=== PATIENT | female | born 1935 | race Caucasian/White ===

== ENCOUNTER → 2018-03-03 06:57 | Outpatient (CLI) | payer MEDICARE, BC, SELFPAY ==
--- NOTE | 2018-03-03 09:44 | NEURO ---
NCS and/or EMG Patient Report Ordering Doctor: Leonila Rosa DATE OF SERVICE: 03/03/18 This is a right upper extremity EMG and nerve conduction study performed on this 82-year-old female with a history of numbness and tingling in her right hand for approximately 2 years, in July she did awaken with what she describes as her right arm was asleep and it gradually improved over that day. She does use sleep aids. She says a subsequent CAT scan was unremarkable. Right upper extremity sensory and motor nerve conduction study demonstrates moderate to severe prolongation of the median motor distal latency with mild reduction of amplitude and conduction velocity. The median sensory distal latency is prolonged. The ulnar motor and sensory and the radial sensory responses are normal. The right median F wave is mildly prolonged compared to the ulnar F wave. Right upper extremity needle electromyography is performed. Muscles evaluated included the first dorsal interosseous, abductor pollicis brevis, brachioradialis, biceps, triceps and deltoid muscles. The abductor pollicis brevis did demonstrate large motor units with early recruitment. All other muscles including other C8 muscles demonstrated normal insertional activity with absence of pathologic spontaneous activity. Motor unit potential recruitment pattern and amplitude was otherwise normal. Impression: 1. Moderate to severe carpal tunnel syndrome at the right wrist. 2. Symptoms of transient right arm weakness and numbness are consistent with transient compression neuropathy however further evaluation for vascular causes could include MRI, carotid ultrasound, echocardiogram and cardiac monitoring.
== END ==
PROVIDERS: Family Provider Internal Medicine; PCP Internal Medicine; Visit Provider Nurse Practitioner Acute Care
DX: R20.0 Anesthesia of skin (principal); R20.2 Paresthesia of skin
CPT/HCPCS: 95886; 95909

== ENCOUNTER 2018-09-27 14:56 | Inpatient (IN) | payer MEDICARE, BC, SELFPAY ==
[2018-09-27] VITALS (7 sets, daily range): BP systolic 116–136; BP diastolic 55–76; PULSE 77–102; RESP 16–18; TEMP 36.6–36.8; O2SAT 95–100; BMI 21.6
--- NOTE | 2018-09-27 15:23 | EKG12_ITS ---
Test Reason : Blood Pressure : / mmHG Vent. Rate : 089 BPM Atrial Rate : 089 BPM P-R Int : 120 ms QRS Dur : 086 ms QT Int : 362 ms P-R-T Axes : 054 -56 036 degrees QTc Int : 440 ms Normal sinus rhythm Possible Left atrial enlargement Left anterior fascicular block Cannot rule out Inferior infarct (masked by fascicular block?) , age undetermined Poor R wave progression Abnormal ECG Confirmed by WENDY SOTO, [place] ([id number]), communications editor NICOLE PARSON ([id number]) on 09/29/2018 1:40:56 PM Referred By: Melida Cassidy Confirmed By:[place] NGUYEN MD
--- NOTE | 2018-09-27 15:23 | CT_ITS ---
STUDY: CT ABDOMEN AND PELVIS WITH CONTRAST REASON FOR EXAM: Female, 82 years old. Abdominal pain RADIATION DOSAGE (If Supplied By Facility): CTDIvol = ( 10.30 ) mGy, DLP = ( 516.18 ) mGycm TECHNIQUE: Transaxial images were obtained from the dome of the diaphragm to the symphysis pubis without oral contrast. 75 ml of Isovue 300 contrast was administered. Sagittal and coronal images were reconstructed. Individualized dose optimization techniques were used for this CT. COMPARISON: None. FINDINGS: Body wall soft tissues: No acute process. Osseous structures: Multilevel lumbar spondylosis with evidence of at least mild foraminal narrowing in the low lumbar spine at multiple levels. Inferior chest: Lung bases clear. No significant cardiomegaly. Normal distal esophagus. Hepatobiliary: Cholecystectomy. Mild intrahepatic biliary ductal ectasia. Ectatic hepatic duct and common bile duct, the hepatic duct measuring up to 11 mm and the common bile duct within the head of the pancreas approximately 8.5 mm tapering toward the sphincter with no filling defect. Pancreas: No suspicious pancreatic lesion. Mild ductal ectasia. Spleen: Splenic calcifications consistent with old granulomatous disease. Adrenal glands: Normal. Urogenital: Benign bilateral renal cysts Bosniak category 1 simple cystic features. Largest on the left measuring 1.2 cm. Normal collecting systems, ureters, urinary bladder. Uterus absent. No adnexal mass or cyst. Pelvic floor and sidewalls and retroperitoneum: No mass or adenopathy. Vasculature: Mild atherosclerosis. Stomach: No acute process. Small bowel and mesentery: No acute process. Large bowel: The appendix is not clearly visible. There are no acute inflammatory features in the region of the cecum. Small stool burden of the large bowel. Diverticulosis of the proximal to distal sigmoid. Acute diverticulitis with abscess distal sigmoid in the central deep pelvis. The abscess protrudes from the margin of the bowel and measures approximately 1.4 cm in diameter. There is prominent circumferential thickening and inflammation of the adjacent bowel wall over a segment measuring approximately 6.3 cm in length. The rectum is normal. There is no evidence of free perforation. Free fluid or free air: None. CT/Abdomen/Pelvis W IV Cont ONLY IMPRESSION: Acute sigmoid diverticulitis compensated by formation of a small adjacent abscess with prominent inflammation of the bowel segment wall. 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 No apparent obstructive lesion. Electronically Signed: Charles Gordon MD at 16:46 EST Tel , Service support ,
--- NOTE | 2018-09-27 15:25 | ED.VISSUMM ---
- ER Visit Summary Date of Service: 09/27/18 Chief Complaint: abdominal pain History of Present Illness: The patient is a 82 F who presents for 1 month of abdominal pain. Patient has been having a progressively worsening soreness in her general upper abdomen with a bloated feeling. 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 She has worsening pain with walking or sitting upright. She has nausea without vomiting, decreased appetite, decreased oral intake due to nausea, decreased urine output and post void pain when urinating. She states that the urination symptoms have been ongoing. She has a history of irritable bowel syndrome with alternating diarrhea and constipation. She has not had a bowel movement for 2 days. No fever, chest pain, shortness of breath. Patient has Sjogren's syndrome and ray nods as well as multiple other medical problems. She is on Percocet for chronic back pain. She states the Percocet has helped somewhat with the abdominal pain. Physical Examination: Vital signs: afebrile, hemodynamically stable, no hypoxia on room air General: well nourished, well developed, in no distress Skin: warm, dry, no rash, no pallor HEENT: normocephalic and atraumatic; PERRL, EOMI, dry mucous membranes Cardiovascular: Tachycardic rate and rhythm without murmurs, no peripheral edema, 2+ pulses all distal extremities Respiratory: No increased work of breathing, lungs are clear to auscultation bilaterally, no rales, rhonchi or wheezing Abdominal: Abdomen is soft, tender to light palpation in the epigastrium and periumbilical region, bilateral upper quadrants, withhyperactive bowel sounds, no guarding or rebound, no masses MSK: Moves all extremities, no deformities, normal strength Neuro: Awake and alert, oriented ?4. No facial droop, sensation and motor function intact and symmetric Test Results: Abnormal Lab Results 09/27/18 09/27/18 09/27/18 13:30 13:30 13:30 WBC 13.3 H RBC 4.67 Hgb 13.1 Hct 41.2 MCV 88.2 MCH 28.1 MCHC 31.8 L RDW 13.7 RDW Differential 44.0 H Plt Count 269 MPV 9.8 Immature Gran % (Auto) 0.200 Neut % (Auto) 80.0 H Lymph % (Auto) 10.4 L [place] % (Auto) 9.1 Eos % (Auto) 0.2 Baso % (Auto) 0.1 Absolute Neuts (auto) 10.7 H Absolute Lymphs (auto) 1.38 Total Counted Not Reportable Sodium 138 Potassium 3.2 L Chloride 100 Carbon Dioxide 29.0 Anion Gap 9 BUN 6 L Creatinine 0.72 Estim Creat Clear Calc 33.21 Est GFR (MDRD) Af Amer 100 Est GFR (MDRD) Non-Af 83 BUN/Creatinine Ratio 8.4 L Glucose 95 Lactic Acid 1.2 Calcium 8.9 Magnesium Total Bilirubin 0.60 AST 26 ALT 22 Alkaline Phosphatase 98 Troponin I < 0.015 Total Protein 7.5 Albumin 3.8 Globulin 3.7 Albumin/Globulin Ratio 1.0 Lipase 75 Urine Color Urine Clarity Urine pH Ur Specific [place] Urine Protein Urine Glucose (UA) Urine Ketones Urine Occult Blood Urine Nitrite Urine Bilirubin Urine Urobilinogen Ur Leukocyte Esterase Urine RBC Urine WBC Ur Squamous Epith Cells Urine Bacteria Urine Mucus 09/27/18 09/27/18 13:30 16:15 WBC RBC Hgb Hct MCV MCH MCHC RDW RDW Differential Plt Count MPV Immature Gran % (Auto) Neut % (Auto) Lymph % (Auto) [place] % (Auto) Eos % (Auto) Baso % (Auto) Absolute Neuts (auto) Absolute Lymphs (auto) Total Counted Sodium Potassium Chloride Carbon Dioxide Anion Gap BUN Creatinine Estim Creat Clear Calc Est GFR (MDRD) Af Amer Est GFR (MDRD) Non-Af BUN/Creatinine Ratio Glucose Lactic Acid Calcium Magnesium 2.0 Total Bilirubin AST ALT Alkaline Phosphatase Troponin I Total Protein Albumin Globulin Albumin/Globulin Ratio Lipase Urine Color Straw Urine Clarity Clear Urine pH 7.0 Ur Specific [place] 1.010 Urine Protein Negative Urine Glucose (UA) Normal Urine Ketones Negative Urine Occult Blood 25 H Urine Nitrite Negative Urine Bilirubin Negative Urine Urobilinogen Normal Ur Leukocyte Esterase 25 H Urine RBC 0 SEEN Urine WBC 0-5 SEEN Ur Squamous Epith Cells 0 SEEN Urine Bacteria 0 SEEN Urine Mucus 0 SEEN Clinical Impression(s) from Imaging Studies Abdomen/Pelvis CT 09/27/18 15:23 IMPRESSION: Acute sigmoid diverticulitis compensated by formation of a small adjacent abscess with prominent inflammation of the bowel segment wall. 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 No apparent obstructive lesion. Electronically Signed: Charles Gordon MD at 16:46 EST Tel , Service support , Chest X-Ray 09/27/18 16:28 IMPRESSION: There are findings consistent with COPD. There is no evidence of acute chest disease. Electronically Signed: Zhao Lantigua MD at 16:46 EST , Service support , Medications Given Sodium Chloride () 1,000 mls @ 1,000 mls/hr IV .Q1H ONE Stop: 09/27/18 16:21 Last Admin: 09/27/18 15:50 Dose: 1,000 mls/hr Ciprofloxacin (Cipro) 400 mg in 200 mls @ 200 mls/hr IV X1 ONE Stop: 09/27/18 17:56 Last Admin: 09/27/18 17:50 Dose: 200 mls/hr Metronidazole (Flagyl) 500 mg in 100 mls @ 100 mls/hr IV X1 ONE Stop: 09/27/18 17:56 Last Admin: 09/27/18 19:14 Dose: Not Given Morphine Sulfate () 4 mg IV X1 ONE Stop: 09/27/18 15:23 Last Admin: 09/27/18 15:48 Dose: 4 mg Ondansetron HCl (Zofran) 4 mg IV X1 ONE Stop: 09/27/18 15:23 Last Admin: 09/27/18 15:48 Dose: 4 mg Emergency Department Course and Treatment: Examination of patient's notes from her doctor from 1 week ago shows that patient was advised dietary modifications and if those did not work that she would require workup for possible small bowel obstruction. Patient was seen by her primary care doctor today who sent patient in for further examination due to her symptoms. Given IV fluids for hydration. She was given morphine and Zofran for symptomatic relief. Labs performed, and EKG and troponin included given the patient is having epigastric complaints. CT abdomen and pelvis performed. Patient had a leukocytosis of 13.3. Hepatic function and electrolytes were remarkable only for potassium of 3.2. Lactate within normal limits at 1.2. Troponin negative. EKG showed sinus rhythm with no ischemia or ectopy. Chest x-ray was consistent with COPD but had no active acute processes. CT of the abdomen and pelvis showed sigmoid diverticulitis with an abscess and bowel wall inflammation. Patient was started on Cipro and metronidazole. Patient was discussed with Dr. Souza, who will provide surgical consult on the patient. She was admitted to the hospitalist for further management of sigmoid diverticulitis with abscess. Treatment Plan: [] Disposition: [] Impression: Acute sigmoid diverticulitis with abscess This note was generated with [employer] dictation software. It may contain incorrect words, spelling, and punctuation that were not noted in review of the chart prior to signing ED Disposition - Plan for ED Patient: Disposition: Acute Care Hospital [facility] Chief Complaint: Abd Pain
--- NOTE | 2018-09-27 15:29 | ED.DCSUM_ITS ---
- ER Visit Summary Date of Service: 09/27/18 Chief Complaint: abdominal pain History of Present Illness: The patient is a 82 F who presents for 1 month of abdominal pain. Patient has been having a progressively worsening soreness in her general upper abdomen with a bloated feeling. 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 She has worsening pain with walking or sitting upright. She has nausea without vomiting, decreased appetite, decreased oral intake due to nausea, decreased urine output and post void pain when urinating. She states that the urination symptoms have been ongoing. She has a history of irritable bowel syndrome with alternating diarrhea and constipation. She has not had a bowel movement for 2 days. No fever, chest pain, shortness of breath. Patient has Sjogren's syndrome and ray nods as well as multiple other medical problems. She is on Percocet for chronic back pain. She states the Percocet has helped somewhat with the abdominal pain. Physical Examination: Vital signs: afebrile, hemodynamically stable, no hypoxia on room air General: well nourished, well developed, in no distress Skin: warm, dry, no rash, no pallor HEENT: normocephalic and atraumatic; PERRL, EOMI, dry mucous membranes Cardiovascular: Tachycardic rate and rhythm without murmurs, no peripheral edema, 2+ pulses all distal extremities Respiratory: No increased work of breathing, lungs are clear to auscultation bilaterally, no rales, rhonchi or wheezing Abdominal: Abdomen is soft, tender to light palpation in the epigastrium and periumbilical region, bilateral upper quadrants, withhyperactive bowel sounds, no guarding or rebound, no masses MSK: Moves all extremities, no deformities, normal strength Neuro: Awake and alert, oriented ?4. No facial droop, sensation and motor function intact and symmetric Test Results: Abnormal Lab Results 09/27/18 09/27/18 09/27/18 13:30 13:30 13:30 WBC 13.3 H RBC 4.67 Hgb 13.1 Hct 41.2 MCV 88.2 MCH 28.1 MCHC 31.8 L RDW 13.7 RDW Differential 44.0 H Plt Count 269 MPV 9.8 Immature Gran % (Auto) 0.200 Neut % (Auto) 80.0 H Lymph % (Auto) 10.4 L [place] % (Auto) 9.1 Eos % (Auto) 0.2 Baso % (Auto) 0.1 Absolute Neuts (auto) 10.7 H Absolute Lymphs (auto) 1.38 Total Counted Not Reportable Sodium 138 Potassium 3.2 L Chloride 100 Carbon Dioxide 29.0 Anion Gap 9 BUN 6 L Creatinine 0.72 Estim Creat Clear Calc 33.21 Est GFR (MDRD) Af Amer 100 Est GFR (MDRD) Non-Af 83 BUN/Creatinine Ratio 8.4 L Glucose 95 Lactic Acid 1.2 Calcium 8.9 Magnesium Total Bilirubin 0.60 AST 26 ALT 22 Alkaline Phosphatase 98 Troponin I < 0.015 Total Protein 7.5 Albumin 3.8 Globulin 3.7 Albumin/Globulin Ratio 1.0 Lipase 75 Urine Color Urine Clarity Urine pH Ur Specific [place] Urine Protein Urine Glucose (UA) Urine Ketones Urine Occult Blood Urine Nitrite Urine Bilirubin Urine Urobilinogen Ur Leukocyte Esterase Urine RBC Urine WBC Ur Squamous Epith Cells Urine Bacteria Urine Mucus 09/27/18 09/27/18 13:30 16:15 WBC RBC Hgb Hct MCV MCH MCHC RDW RDW Differential Plt Count MPV Immature Gran % (Auto) Neut % (Auto) Lymph % (Auto) [place] % (Auto) Eos % (Auto) Baso % (Auto) Absolute Neuts (auto) Absolute Lymphs (auto) Total Counted Sodium Potassium Chloride Carbon Dioxide Anion Gap BUN Creatinine Estim Creat Clear Calc Est GFR (MDRD) Af Amer Est GFR (MDRD) Non-Af BUN/Creatinine Ratio Glucose Lactic Acid Calcium Magnesium 2.0 Total Bilirubin AST ALT Alkaline Phosphatase Troponin I Total Protein Albumin Globulin Albumin/Globulin Ratio Lipase Urine Color Straw Urine Clarity Clear Urine pH 7.0 Ur Specific [place] 1.010 Urine Protein Negative Urine Glucose (UA) Normal Urine Ketones Negative Urine Occult Blood 25 H Urine Nitrite Negative Urine Bilirubin Negative Urine Urobilinogen Normal Ur Leukocyte Esterase 25 H Urine RBC 0 SEEN Urine WBC 0-5 SEEN Ur Squamous Epith Cells 0 SEEN Urine Bacteria 0 SEEN Urine Mucus 0 SEEN Clinical Impression(s) from Imaging Studies Abdomen/Pelvis CT 09/27/18 15:23 IMPRESSION: Acute sigmoid diverticulitis compensated by formation of a small adjacent abscess with prominent inflammation of the bowel segment wall. 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 No apparent obstructive lesion. Electronically Signed: Charles Gordon MD at 16:46 EST Tel , Service support , Chest X-Ray 09/27/18 16:28 IMPRESSION: There are findings consistent with COPD. There is no evidence of acute chest disease. Electronically Signed: Zhao Lantigua MD at 16:46 EST , Service support , Medications Given Sodium Chloride () 1,000 mls @ 1,000 mls/hr IV .Q1H ONE Stop: 09/27/18 16:21 Last Admin: 09/27/18 15:50 Dose: 1,000 mls/hr Ciprofloxacin (Cipro) 400 mg in 200 mls @ 200 mls/hr IV X1 ONE Stop: 09/27/18 17:56 Last Admin: 09/27/18 17:50 Dose: 200 mls/hr Metronidazole (Flagyl) 500 mg in 100 mls @ 100 mls/hr IV X1 ONE Stop: 09/27/18 17:56 Last Admin: 09/27/18 19:14 Dose: Not Given Morphine Sulfate () 4 mg IV X1 ONE Stop: 09/27/18 15:23 Last Admin: 09/27/18 15:48 Dose: 4 mg Ondansetron HCl (Zofran) 4 mg IV X1 ONE Stop: 09/27/18 15:23 Last Admin: 09/27/18 15:48 Dose: 4 mg Emergency Department Course and Treatment: Examination of patient's notes from her doctor from 1 week ago shows that patient was advised dietary modifications and if those did not work that she would require workup for possible small bowel obstruction. Patient was seen by her primary care doctor today who sent patient in for further examination due to her symptoms. Given IV fluids for hydration. She was given morphine and Zofran for symptomatic relief. Labs performed, and EKG and troponin included given the patient is having epigastric complaints. CT abdomen and pelvis performed. Patient had a leukocytosis of 13.3. Hepatic function and electrolytes were remarkable only for potassium of 3.2. Lactate within normal limits at 1.2. Troponin negative. EKG showed sinus rhythm with no ischemia or ectopy. Chest x-ray was consistent with COPD but had no active acute processes. CT of the abdomen and pelvis showed sigmoid diverticulitis with an abscess and bowel wall inflammation. Patient was started on Cipro and metronidazole. Patient was discussed with Dr. Souza, who will provide surgical consult on the patient. She was admitted to the hospitalist for further management of sigmoid diverticulitis with abscess. Treatment Plan: [] Disposition: [] Impression: Acute sigmoid diverticulitis with abscess This note was generated with [employer] dictation software. It may contain incorrect words, spelling, and punctuation that were not noted in review of the chart prior to signing ED Disposition - Plan for ED Patient: Disposition: Acute Care Hospital [facility] Chief Complaint: Abd Pain
[2018-09-27] MEDS: Morphine 4 MG/ML Syringe IV (15:48)
[2018-09-27] MEDS: Ondansetron 4 MG/2 ML Vial IV (15:48)
[2018-09-27] MEDS: 0.9% Normal Saline 1,000 ML 1000 ML IV (15:50)
[2018-09-27 15:59] LABS: Absolute Lymphocyte Count 1.38 X10^3/ul (0.83-4.51); Absolute Neutrophil Count 10.7 X10^3/uL (2.0-7.7); Basophil# 0.01 X10^3/uL; Basophil% 0.1 % (0-1); Eosinophil# 0.02 X10^3/uL; Eosinophils% 0.2 % (0-5); Hematocrit 41.2 % (37-47); Hemoglobin 13.1 g/dl (12.0-15.0); Lymphocyte # 1.38 X10^3/ul (4.0); Lymphocyte % 10.4 % (19-41); Mean Corp Hgb Conc 31.8 g/gl (32-36); Mean Corpuscular Hgb 28.1 pg (27.0-32.0); Mean Corpuscular Volume 88.2 fL (81-99); Mean Platelet Vol. 9.8 fl (6.2-12.0); Monocyte# 1.21 X10^3/uL; Monocyte% 9.1 % (0-10); Neutrophil # 10.65 X10^3/uL (2.7-7.7); Platelet Count 269 K/mm3 (150-450); RBC Distribution Width CV 13.7 % (11.6-14.6); Red Blood Count 4.67 M/mm3 (4.2-5.4); White Blood Count 13.3 K/mm3 (4.4-11.0)
[2018-09-27 16:01] LABS: POSITIVE COUNT NO; POSITIVE DIFFERENTIAL NO; POSITIVE MORPHOLOGY NO
[2018-09-27 16:05] LABS: AST(SGOT) 26 U/L (15-37); Alanine Aminotransfer ALT/SGPT 22 U/L (13-56); Albumin, Serum 3.8 g/dL (3.2-5.0); Alkaline Phosphatase 98 U/L (45-117); Anion Gap 9 (5-15); BUN 6 mg/dL (7-18); BUN/Creat Ratio 8.4 RATIO (10-20); Calcium,Total 8.9 mg/dL (8.5-10.1); Chloride 100 mmol/L (98-107); Creatinine, Serum 0.72 mg/dL (0.55-1.02); EST Glomerular Filtration Rate 83 mL/min (>60); Est Glom Filt Rate - Afr Amer 100 mL/min (>60); Estimated Creatinine Clearance 33.21 ml/min; Globulin 3.7 g/dL (2.2-4.2); Glucose 95 mg/dL (74-106); Lactic Acid 1.2 mmol/L (0.4-2.0); Lipase 75 U/L (73-393); Potassium 3.2 mmol/L (3.5-5.1); Protein, Total 7.5 g/dL (6.4-8.2); Sodium Level 138 mmol/L (136-145)
--- NOTE | 2018-09-27 16:28 | RAD_ITS ---
STUDY: X-RAY CHEST REASON FOR EXAM: Female, 82 years old. Chest pain TECHNIQUE: Frontal and lateral views of the chest. COMPARISON: 04/05/2017. FINDINGS: There is hyperinflation of the lungs consistent with chronic obstructive lung disease (COPD). No infiltrates or effusions. There is no demonstrated pleural abnormality. Normal size heart. Normal mediastinum and anna. Normal visualized pulmonary arteries. Normal visualized aortic arch and descending thoracic aorta. There are diffuse degenerative changes of the visualized thoracic spine. Stable compression fracture of the mid thoracic spine. Normal visualized ribs, clavicles, and shoulders. There is no demonstrated abnormality of the visualized soft tissue structures of the upper abdomen. RAD/Chest PA and Lateral IMPRESSION: There are findings consistent with COPD. There is no evidence of acute chest disease. Electronically Signed: Zhao Lantigua MD at 16:46 EST , Service support ,
[2018-09-27 16:44] LABS: Bacteria 0 SEEN /hpf (None Seen); Mucous, Urine 0 SEEN /hpf (<or=2+); Red Blood Cells-Urine 0 SEEN /hpf (0-5); Squamous Epithelial Cells - UA 0 SEEN /hpf (5-10)
--- NOTE | 2018-09-27 17:10 | NURSING ---
DR CORRINE CHAN
[2018-09-27 17:27] LABS: Color, Urine Straw (Yellow); Glucose, Dipstick Normal (Normal); Ketone-Dipstick Negative (Negative); Leukocyte Esterase-Dipstick 25 /ul (Negative); Nitrite-Dipstick Negative (Negative); Occult Blood-Urine 25 /ul (Negative); Protein-Dipstick Negative (Negative); Urine Bilirubin Dipstick Negative (Negative); Urine Clarity Clear (Clear); Urine Urobilinogen Normal (Normal)
[2018-09-27 17:31] LABS: White Blood Cells 0-5 SEEN /hpf (0-5)
[2018-09-27] MEDS: Ciprofloxacin 400 MG/200 ML BAG 200 MG IV (17:50)
--- NOTE | 2018-09-27 17:55 | NURSING ---
DR RADHA SPEARS
--- NOTE | 2018-09-27 18:03 | NURSING ---
MED SURG SIGMOID DIVERTICULITIS WITH ABSCESS ASHELFAH
--- NOTE | 2018-09-27 18:48 | PCM.HP.STD ---
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 The patient is a 82 year old F with past medical history as mentioned above presented to the emergency room because of abdominal pain. Her symptoms started around 1 week ago with abdominal pain, in the lower part of the abdomen, dull aching pain, intermittent, 8 out of 10 in severity, sometimes tends to be more severe on the left lower quadrant, associated with nausea without vomiting, radiates to the epigastric region aggravated by standing and walking and without relieving factors. She mentioned that she has been having this abdominal pain for almost a month but started to get worse over the last 5-6 days. Around 1 month ago, she saw her tying machine operator who performed colonoscopy on her in the last several months and she was found to have extensive diverticulosis according to the patient, no documents available. Today, she went to her PCPs office who transferred her to ED for evaluation. She denied fever or chills but she was told that she has low-grade fever at her PCPs office. She has been having constipation and diarrhea alternating because of history of IBS but nothing unusual. In the emergency department, she was afebrile, slightly tachycardic, blood pressure was stable and pulse ox was maintained on room air. Her routine blood work was remarkable for leukocytosis and potassium of 3.2, otherwise normal. Her LFT and lipase were normal. Lactic acid was normal. Troponin was negative. Urine analysis revealed no evidence of infection. EKG revealed normal sinus rhythm without evidence of acute ischemic changes or cardiac arrhythmias. CT scan abdomen and pelvis with contrast revealed acute sigmoid diverticulitis with small adjacent abscess. Chest x-ray showed no acute findings. She is being admitted for acute sigmoid diverticulitis with small abscess complicated by sepsis. 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 History of compression fracture of spine (Chronic) L1, january 29 Premature atrial contractions (Chronic) Mixed anxiety and depressive disorder (Chronic) Allergies difluprednate [From Durezol] Allergy (Verified 09/27/18 14:58) Other methylprednisolone Allergy (Verified 09/27/18 14:58) Rash Penicillins Allergy (Verified 09/27/18 14:58) Unknown prednisolone Allergy (Verified 09/27/18 14:58) Swelling citalopram Adverse Reaction (Verified 09/27/18 14:58) Diarrhea codeine Adverse Reaction (Verified 09/27/18 14:58) Nausea duloxetine HCl [From Cymbalta] Adverse Reaction (Verified 09/27/18 14:58) Diarrhea lamotrigine [From Lamictal] Adverse Reaction (Verified 09/27/18 14:58) Other DRUGGED FEELING metoclopramide HCl [From Reglan] Adverse Reaction (Verified 09/27/18 14:58) Other INVOLUNTARY BODY MOVEMENTS promethazine HCl [From Phenergan] Adverse Reaction (Verified 09/27/18 14:58) Other INVOLUNTARY BODY MOVEMENTS sertraline HCl [From Zoloft] Adverse Reaction (Verified 09/27/18 14:58) Diarrhea sulfamethoxazole [From Bactrim] Adverse Reaction (Verified 09/27/18 14:58) Other FELT WEIRD, HEAD NUMB, FELT DRUGGED, SHAKEY, NAUSEATED trimethoprim [From Bactrim] Adverse Reaction (Verified 09/27/18 14:58) Other FELT WEIRD, HEAD NUMB, FELT DRUGGED, SHAKEY, NAUSEATED Home Medications: Ambulatory Orders Medication Instructions Recorded Acetaminophen [Tylenol] 500 mg PO Q6H PRN PRN 03/29/16 Aspirin [Adult Low Dose Aspirin EC] 81 mg PO DAILY 03/29/16 Atorvastatin Calcium [Lipitor] 5 mg PO QODAY 03/29/16 Calcium Citrate/Vitamin D3 2 tab PO BID 03/29/16 [Calcium Citrate - Vit D Tablet] CycloSPORINE Ophthalmic [Restasis 1 drop EACH EYE BID 03/29/16 Ophthalmic] Docusate Sodium [Colace] 100 mg PO TID PRN PRN 03/29/16 Ergocalciferol [Vitamin D] 50,000 unit PO QMONTH 03/29/16 Flaxseed Oil [[place]-3 Flaxseed Oil] 1,000 mg PO DAILY 03/29/16 Hydroxychloroquine [Plaquenil] 200 mg PO DAILYCM 03/29/16 Melatonin 3 mg PO QHS 03/29/16 Omeprazole [Prilosec] 20 mg PO BREAKFAST 03/29/16 Pilocarpine HCl [Salagen] 5 mg PO TID 03/29/16 Polyethylene Glycol 3350 [Miralax] 17 gm PO DAILY PRN PRN 03/29/16 Pramipexole Di-HCl [Mirapex] 0.125 mg PO 1530,1800,2000,2200 03/29/16 Saliva Substitute Comb No.10 1 each MM PRN PRN 03/29/16 [Neutrasal] Oxycodone HCl/Acetaminophen 0.5 tablet PO BID 09/19/16 [Percocet 5-325] Clonazepam 0.25 mg PO QHS 09/27/18 Fluticasone Propionate 2 sprays NASAL DAILY 09/27/18 Gabapentin [Neurontin] 300 mg PO BID 09/27/18 Magnesium Oxide [Magnesium] 250 mg PO QHS 09/27/18 Mineral Oil/Petrolatum,White 3.5 gm OP DAILY 09/27/18 [Systane Nighttime Eye Oint] Multivitamin [Multiple Vitamins] 1 tab PO DAILY 09/27/18 Propylene Glycol/Peg 400 [Systane 30 ml OP 4X/DAY 09/27/18 Ultra 0.4-0.3% Eye Drp] Tumeric 500 mg PO DAILY 09/27/18 Venlafaxine HCl [Venlafaxine HCl 150 mg PO DAILY 09/27/18 ER] Vitamin B Complex [B Complex] 1 tab PO DAILY 09/27/18 Wheat Dextrin [Benefiber] 5 ml PO DAILY 09/27/18 Surgical History: cholecystectomy, hysterectomy - bladder and rectal repair., - - tonsillectomy. 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 Denies: Chills, Fever Eyes: Denies: Blurred vision, Double vision, Drainage, Redness HEENT: Denies: Difficulty Hearing, Ear Pain, Eye Pain, Nasal Congestion, Sore Throat Cardiovascular: Denies: Chest Pain, Chest Pressure, Edema, Light Headedness, Palpitations, Syncope Respiratory: Denies: Cough, Pleuritic Pain, Shortness of Breath, Shortness of breath at rest, Sputum production, Wheezing Gastrointestinal: Reports: Abdominal Pain, Constipation, Diarrhea, Nausea. Denies: Melena, Vomiting Genitourinary: Denies: Dysuria, Frequency, Hematuria Musculoskeletal: Denies: Arm Pain, Back Pain, Foot Pain Skin: Denies: Dryness, Rash Neurological: Denies: Balance problems, Double vision, Change in Speech, Slurred speech, Confusion, Headaches, Incoordination Psychiatric: Reports: Anxiety, Depression Endocrine: Denies: Change in Body Habitus, Polydipsia VTE Information - Inpt Only VTE Present on Admission: No VTE Mechan Device Prophylaxis: None VTE Pharm Prophylaxis ordered?: Yes - Physical Exam General: Alert, Oriented x3, Cooperative, No apparent distress HEENT: Atraumatic, PERRLA, EOMI, Normocephalic Oral: Moist Mucosa, No Gingival or Mucosal Lesions/ Ulcerations Neck: Supple, No JVD, Negative Carotid Bruits, Trachea Midline, Thyroid Normal Size and Texture Lungs: Clear to auscultation, No rhonchi, No wheeze, No rales, Diminished Cardiovascular: Regular rate, Regular Rhythm, Normal S1, Normal S2, PMI Normal Abdomen: Bowel Sounds Present, Soft, Non-Distended, No Hepato-splenomegaly, Tender - Generalized tenderness, no guarding or rigidity. Extremities: No clubbing, No cyanosis, No edema Skin: No rashes, No breakdown Lymphatic: No Cervical, Supraclavicular, or Inguinal Adenopathy Neurological: Cranial nerves II-XII grossly intact, Motor Exam 5/5 strength throughout Psych/Mental Status: Normal Affect, Appropriate, Alert and oriented to time, place, person, mood and affect Vital Signs Temp Pulse Resp BP Pulse Ox 97.9 F 89 16 135/70 H 97 09/27/18 14:58 09/27/18 17:00 09/27/18 17:00 09/27/18 17:00 09/27/18 17:00 Oxygen Delivery Method Room Air Weight: 106 lb 14.787 oz Body Mass Index (BMI) 21.6 Finger Stick Blood Glucose 139 Laboratory Tests Past 24 Hrs 09/27/18 09/27/18 09/27/18 13:30 13:30 13:30 WBC 13.3 H RBC 4.67 Hgb 13.1 Hct 41.2 MCV 88.2 MCH 28.1 MCHC 31.8 L RDW 13.7 RDW Differential 44.0 H Plt Count 269 MPV 9.8 Immature Gran % (Auto) 0.200 Neut % (Auto) 80.0 H Lymph % (Auto) 10.4 L [place] % (Auto) 9.1 Eos % (Auto) 0.2 Baso % (Auto) 0.1 Absolute Neuts (auto) 10.7 H Absolute Lymphs (auto) 1.38 Total Counted Not Reportable Sodium 138 Potassium 3.2 L Chloride 100 Carbon Dioxide 29.0 Anion Gap 9 BUN 6 L Creatinine 0.72 Estim Creat Clear Calc 33.21 Est GFR (MDRD) Af Amer 100 Est GFR (MDRD) Non-Af 83 BUN/Creatinine Ratio 8.4 L Glucose 95 Lactic Acid 1.2 Calcium 8.9 Total Bilirubin 0.60 AST 26 ALT 22 Alkaline Phosphatase 98 Troponin I < 0.015 Total Protein 7.5 Albumin 3.8 Globulin 3.7 Albumin/Globulin Ratio 1.0 Lipase 75 Urine Color Urine Clarity Urine pH Ur Specific [place] Urine Protein Urine Glucose (UA) Urine Ketones Urine Occult Blood Urine Nitrite Urine Bilirubin Urine Urobilinogen Ur Leukocyte Esterase Urine RBC Urine WBC Ur Squamous Epith Cells Urine Bacteria Urine Mucus 09/27/18 16:15 WBC RBC Hgb Hct MCV MCH MCHC RDW RDW Differential Plt Count MPV Immature Gran % (Auto) Neut % (Auto) Lymph % (Auto) [place] % (Auto) Eos % (Auto) Baso % (Auto) Absolute Neuts (auto) Absolute Lymphs (auto) Total Counted Sodium Potassium Chloride Carbon Dioxide Anion Gap BUN Creatinine Estim Creat Clear Calc Est GFR (MDRD) Af Amer Est GFR (MDRD) Non-Af BUN/Creatinine Ratio Glucose Lactic Acid Calcium Total Bilirubin AST ALT Alkaline Phosphatase Troponin I Total Protein Albumin Globulin Albumin/Globulin Ratio Lipase Urine Color Straw Urine Clarity Clear Urine pH 7.0 Ur Specific [place] 1.010 Urine Protein Negative Urine Glucose (UA) Normal Urine Ketones Negative Urine Occult Blood 25 H Urine Nitrite Negative Urine Bilirubin Negative Urine Urobilinogen Normal Ur Leukocyte Esterase 25 H Urine RBC 0 SEEN Urine WBC 0-5 SEEN Ur Squamous Epith Cells 0 SEEN Urine Bacteria 0 SEEN Urine Mucus 0 SEEN Clinical Impression(s) from Imaging Studies Abdomen/Pelvis CT 09/27/18 15:23 IMPRESSION: Acute sigmoid diverticulitis compensated by formation of a small adjacent abscess with prominent inflammation of the bowel segment wall. 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 No apparent obstructive lesion. Electronically Signed: Charles Gordon MD at 16:46 EST Tel , Service support , Chest X-Ray 09/27/18 16:28 IMPRESSION: There are findings consistent with COPD. There is no evidence of acute chest disease. Electronically Signed: Zhao Lantigua MD at 16:46 EST , Service support , Assessment/Plan This is an 82 years old female patient presented to the emergency room because of abdominal pain, anorexia with nausea and she was found to have acute sigmoid diverticulitis with small abscess as well as sepsis and she is being admitted for treatment. #1 acute sigmoid diverticulitis/small abscess/sepsis: CT scan abdomen and pelvis reviewed as above. Patient is tachycardic, have leukocytosis which is consistent with sepsis. Lactic acid was normal. Plan: Admit to MedSurg floor, cardiac monitoring, keep on clear liquids, IV fluids with potassium replacement, start IV Flagyl and ciprofloxacin, repeat CBC and BMP tomorrow morning, general surgery consult, PT OT evaluation and treatment. #2 Sjogren's syndrome: Continue cyclosporine eyedrops, Plaquenil and pilocarpine. #3 ankylosing spondylitis: Stable, continue gabapentin, Plaquenil and start IV morphine as needed as well as Tylenol as needed. #4 restless leg syndrome: Continue Mirapex and venlafaxine. #5 anxiety/depression: Continue clonazepam, melatonin and venlafaxine. #6 DVT prophylaxis: Subcu Lovenox. Other chronic medical problems: #1 osteoarthritis. #2 osteoporosis. #3 choroid melanoma of the left eye. #4 compression fracture of the spine. This note was generated with [employer] dictation software. It may contain incorrect words, spelling, and punctuation that were not noted in checking the note before signing. Code Visit Inpatient E&M: 44066 Init Hosp L3
--- NOTE | 2018-09-27 18:53 | HP.PCM_ITS ---
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 The patient is a 82 year old F with past medical history as mentioned above presented to the emergency room because of abdominal pain. Her symptoms started around 1 week ago with abdominal pain, in the lower part of the abdomen, dull aching pain, intermittent, 8 out of 10 in severity, sometimes tends to be more severe on the left lower quadrant, associated with nausea without vomiting, radiates to the epigastric region aggravated by standing and walking and without relieving factors. She mentioned that she has been having this abdominal pain for almost a month but started to get worse over the last 5-6 days. Around 1 month ago, she saw her product info specialist who performed colonoscopy on her in the last several months and she was found to have extensive diverticulosis according to the patient, no documents available. Today, she went to her PCPs office who transferred her to ED for evaluation. She denied fever or chills but she was told that she has low-grade fever at her PCPs office. She has been having constipation and diarrhea alternating because of history of IBS but nothing unusual. In the emergency department, she was afebrile, slightly tachycardic, blood pressure was stable and pulse ox was maintained on room air. Her routine blood work was remarkable for leukocytosis and potassium of 3.2, otherwise normal. Her LFT and lipase were normal. Lactic acid was normal. Troponin was negative. Urine analysis revealed no evidence of infection. EKG revealed normal sinus rhythm without evidence of acute ischemic changes or cardiac arrhythmias. CT scan abdomen and pelvis with contrast revealed acute sigmoid diverticulitis with small adjacent abscess. Chest x-ray showed no acute findings. She is being admitted for acute sigmoid diverticulitis with small abscess complicated by sepsis. 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 History of compression fracture of spine (Chronic) L1, january 29 Premature atrial contractions (Chronic) Mixed anxiety and depressive disorder (Chronic) Allergies difluprednate [From Durezol] Allergy (Verified 09/27/18 14:58) Other methylprednisolone Allergy (Verified 09/27/18 14:58) Rash Penicillins Allergy (Verified 09/27/18 14:58) Unknown prednisolone Allergy (Verified 09/27/18 14:58) Swelling citalopram Adverse Reaction (Verified 09/27/18 14:58) Diarrhea codeine Adverse Reaction (Verified 09/27/18 14:58) Nausea duloxetine HCl [From Cymbalta] Adverse Reaction (Verified 09/27/18 14:58) Diarrhea lamotrigine [From Lamictal] Adverse Reaction (Verified 09/27/18 14:58) Other DRUGGED FEELING metoclopramide HCl [From Reglan] Adverse Reaction (Verified 09/27/18 14:58) Other INVOLUNTARY BODY MOVEMENTS promethazine HCl [From Phenergan] Adverse Reaction (Verified 09/27/18 14:58) Other INVOLUNTARY BODY MOVEMENTS sertraline HCl [From Zoloft] Adverse Reaction (Verified 09/27/18 14:58) Diarrhea sulfamethoxazole [From Bactrim] Adverse Reaction (Verified 09/27/18 14:58) Other FELT WEIRD, HEAD NUMB, FELT DRUGGED, SHAKEY, NAUSEATED trimethoprim [From Bactrim] Adverse Reaction (Verified 09/27/18 14:58) Other FELT WEIRD, HEAD NUMB, FELT DRUGGED, SHAKEY, NAUSEATED Home Medications: Ambulatory Orders Medication Instructions Recorded Acetaminophen [Tylenol] 500 mg PO Q6H PRN PRN 03/29/16 Aspirin [Adult Low Dose Aspirin EC] 81 mg PO DAILY 03/29/16 Atorvastatin Calcium [Lipitor] 5 mg PO QODAY 03/29/16 Calcium Citrate/Vitamin D3 2 tab PO BID 03/29/16 [Calcium Citrate - Vit D Tablet] CycloSPORINE Ophthalmic [Restasis 1 drop EACH EYE BID 03/29/16 Ophthalmic] Docusate Sodium [Colace] 100 mg PO TID PRN PRN 03/29/16 Ergocalciferol [Vitamin D] 50,000 unit PO QMONTH 03/29/16 Flaxseed Oil [[place]-3 Flaxseed Oil] 1,000 mg PO DAILY 03/29/16 Hydroxychloroquine [Plaquenil] 200 mg PO DAILYCM 03/29/16 Melatonin 3 mg PO QHS 03/29/16 Omeprazole [Prilosec] 20 mg PO BREAKFAST 03/29/16 Pilocarpine HCl [Salagen] 5 mg PO TID 03/29/16 Polyethylene Glycol 3350 [Miralax] 17 gm PO DAILY PRN PRN 03/29/16 Pramipexole Di-HCl [Mirapex] 0.125 mg PO 1530,1800,2000,2200 03/29/16 Saliva Substitute Comb No.10 1 each MM PRN PRN 03/29/16 [Neutrasal] Oxycodone HCl/Acetaminophen 0.5 tablet PO BID 09/19/16 [Percocet 5-325] Clonazepam 0.25 mg PO QHS 09/27/18 Fluticasone Propionate 2 sprays NASAL DAILY 09/27/18 Gabapentin [Neurontin] 300 mg PO BID 09/27/18 Magnesium Oxide [Magnesium] 250 mg PO QHS 09/27/18 Mineral Oil/Petrolatum,White 3.5 gm OP DAILY 09/27/18 [Systane Nighttime Eye Oint] Multivitamin [Multiple Vitamins] 1 tab PO DAILY 09/27/18 Propylene Glycol/Peg 400 [Systane 30 ml OP 4X/DAY 09/27/18 Ultra 0.4-0.3% Eye Drp] Tumeric 500 mg PO DAILY 09/27/18 Venlafaxine HCl [Venlafaxine HCl 150 mg PO DAILY 09/27/18 ER] Vitamin B Complex [B Complex] 1 tab PO DAILY 09/27/18 Wheat Dextrin [Benefiber] 5 ml PO DAILY 09/27/18 Surgical History: cholecystectomy, hysterectomy - bladder and rectal repair., - - tonsillectomy. 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 Denies: Chills, Fever Eyes: Denies: Blurred vision, Double vision, Drainage, Redness HEENT: Denies: Difficulty Hearing, Ear Pain, Eye Pain, Nasal Congestion, Sore Throat Cardiovascular: Denies: Chest Pain, Chest Pressure, Edema, Light Headedness, Palpitations, Syncope Respiratory: Denies: Cough, Pleuritic Pain, Shortness of Breath, Shortness of breath at rest, Sputum production, Wheezing Gastrointestinal: Reports: Abdominal Pain, Constipation, Diarrhea, Nausea. Denies: Melena, Vomiting Genitourinary: Denies: Dysuria, Frequency, Hematuria Musculoskeletal: Denies: Arm Pain, Back Pain, Foot Pain Skin: Denies: Dryness, Rash Neurological: Denies: Balance problems, Double vision, Change in Speech, Slurred speech, Confusion, Headaches, Incoordination Psychiatric: Reports: Anxiety, Depression Endocrine: Denies: Change in Body Habitus, Polydipsia VTE Information - Inpt Only VTE Present on Admission: No VTE Mechan Device Prophylaxis: None VTE Pharm Prophylaxis ordered?: Yes - Physical Exam General: Alert, Oriented x3, Cooperative, No apparent distress HEENT: Atraumatic, PERRLA, EOMI, Normocephalic Oral: Moist Mucosa, No Gingival or Mucosal Lesions/ Ulcerations Neck: Supple, No JVD, Negative Carotid Bruits, Trachea Midline, Thyroid Normal Size and Texture Lungs: Clear to auscultation, No rhonchi, No wheeze, No rales, Diminished Cardiovascular: Regular rate, Regular Rhythm, Normal S1, Normal S2, PMI Normal Abdomen: Bowel Sounds Present, Soft, Non-Distended, No Hepato-splenomegaly, Tender - Generalized tenderness, no guarding or rigidity. Extremities: No clubbing, No cyanosis, No edema Skin: No rashes, No breakdown Lymphatic: No Cervical, Supraclavicular, or Inguinal Adenopathy Neurological: Cranial nerves II-XII grossly intact, Motor Exam 5/5 strength throughout Psych/Mental Status: Normal Affect, Appropriate, Alert and oriented to time, place, person, mood and affect Vital Signs Temp Pulse Resp BP Pulse Ox 97.9 F 89 16 135/70 H 97 09/27/18 14:58 09/27/18 17:00 09/27/18 17:00 09/27/18 17:00 09/27/18 17:00 Oxygen Delivery Method Room Air Weight: 106 lb 14.787 oz Body Mass Index (BMI) 21.6 Finger Stick Blood Glucose 139 Laboratory Tests Past 24 Hrs 09/27/18 09/27/18 09/27/18 13:30 13:30 13:30 WBC 13.3 H RBC 4.67 Hgb 13.1 Hct 41.2 MCV 88.2 MCH 28.1 MCHC 31.8 L RDW 13.7 RDW Differential 44.0 H Plt Count 269 MPV 9.8 Immature Gran % (Auto) 0.200 Neut % (Auto) 80.0 H Lymph % (Auto) 10.4 L [place] % (Auto) 9.1 Eos % (Auto) 0.2 Baso % (Auto) 0.1 Absolute Neuts (auto) 10.7 H Absolute Lymphs (auto) 1.38 Total Counted Not Reportable Sodium 138 Potassium 3.2 L Chloride 100 Carbon Dioxide 29.0 Anion Gap 9 BUN 6 L Creatinine 0.72 Estim Creat Clear Calc 33.21 Est GFR (MDRD) Af Amer 100 Est GFR (MDRD) Non-Af 83 BUN/Creatinine Ratio 8.4 L Glucose 95 Lactic Acid 1.2 Calcium 8.9 Total Bilirubin 0.60 AST 26 ALT 22 Alkaline Phosphatase 98 Troponin I < 0.015 Total Protein 7.5 Albumin 3.8 Globulin 3.7 Albumin/Globulin Ratio 1.0 Lipase 75 Urine Color Urine Clarity Urine pH Ur Specific [place] Urine Protein Urine Glucose (UA) Urine Ketones Urine Occult Blood Urine Nitrite Urine Bilirubin Urine Urobilinogen Ur Leukocyte Esterase Urine RBC Urine WBC Ur Squamous Epith Cells Urine Bacteria Urine Mucus 09/27/18 16:15 WBC RBC Hgb Hct MCV MCH MCHC RDW RDW Differential Plt Count MPV Immature Gran % (Auto) Neut % (Auto) Lymph % (Auto) [place] % (Auto) Eos % (Auto) Baso % (Auto) Absolute Neuts (auto) Absolute Lymphs (auto) Total Counted Sodium Potassium Chloride Carbon Dioxide Anion Gap BUN Creatinine Estim Creat Clear Calc Est GFR (MDRD) Af Amer Est GFR (MDRD) Non-Af BUN/Creatinine Ratio Glucose Lactic Acid Calcium Total Bilirubin AST ALT Alkaline Phosphatase Troponin I Total Protein Albumin Globulin Albumin/Globulin Ratio Lipase Urine Color Straw Urine Clarity Clear Urine pH 7.0 Ur Specific [place] 1.010 Urine Protein Negative Urine Glucose (UA) Normal Urine Ketones Negative Urine Occult Blood 25 H Urine Nitrite Negative Urine Bilirubin Negative Urine Urobilinogen Normal Ur Leukocyte Esterase 25 H Urine RBC 0 SEEN Urine WBC 0-5 SEEN Ur Squamous Epith Cells 0 SEEN Urine Bacteria 0 SEEN Urine Mucus 0 SEEN Clinical Impression(s) from Imaging Studies Abdomen/Pelvis CT 09/27/18 15:23 IMPRESSION: Acute sigmoid diverticulitis compensated by formation of a small adjacent abscess with prominent inflammation of the bowel segment wall. 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 No apparent obstructive lesion. Electronically Signed: Charles Gordon MD at 16:46 EST Tel , Service support , Chest X-Ray 09/27/18 16:28 IMPRESSION: There are findings consistent with COPD. There is no evidence of acute chest disease. Electronically Signed: Zhao Lantigua MD at 16:46 EST , Service support , Assessment/Plan This is an 82 years old female patient presented to the emergency room because of abdominal pain, anorexia with nausea and she was found to have acute sigmoid diverticulitis with small abscess as well as sepsis and she is being admitted for treatment. #1 acute sigmoid diverticulitis/small abscess/sepsis: CT scan abdomen and pelvis reviewed as above. Patient is tachycardic, have leukocytosis which is consi stent with sepsis. Lactic acid was normal. Plan: Admit to [facility] floor, cardiac monitoring, keep on clear liquids, IV fluids with potassium replacement, start IV Flagyl and ciprofloxacin, repeat CBC and BMP tomorrow morning, general surgery consult, PT OT evaluation and treatment. #2 Sjogren's syndrome: Continue cyclosporine eyedrops, Plaquenil and pilocarpine. #3 ankylosing spondylitis: Stable, continue gabapentin, Plaquenil and start IV morphine as needed as well as Tylenol as needed. #4 restless leg syndrome: Continue Mirapex and venlafaxine. #5 anxiety/depression: Continue clonazepam, melatonin and venlafaxine. #6 DVT prophylaxis: Subcu Lovenox. Other chronic medical problems: #1 osteoarthritis. #2 osteoporosis. #3 choroid melanoma of the left eye. #4 compression fracture of the spine. This note was generated with [employer] dictation software. It may contain incorrect words, spelling, and punctuation that were not noted in checking the note before signing. Code Visit Inpatient E&M: 27551 Init Hosp L3
[2018-09-27] MEDS: Pramipexole Di-HCl 0.125 MG Tablet PO ×2 (19:52→22:41)
[2018-09-27] MEDS: MELATONIN 3 MG TABLET PO (22:41)
[2018-09-27] MEDS: clonazePAM 0.5 MG Tablet 0.25 MG PO (22:44)
[2018-09-27] MEDS: 0.9% NaCl Peripheral Flush Adult/Peds IV ×2 (22:48→23:08)
[2018-09-27] MEDS: Piperacil/Tazobactam 3.375 GM/50 ML ML IV (22:55)
[2018-09-28] VITALS (11 sets, daily range): BP systolic 98–159; BP diastolic 44–67; PULSE 64–88; RESP 16–18; TEMP 36.6–37; O2SAT 93–95
[2018-09-28] MEDS: 0.9% NaCl Peripheral Flush Adult/Peds IV (03:25)
[2018-09-28] MEDS: Piperacil/Tazobactam 3.375 GM/50 ML ML IV ×3 (06:05→21:44)
[2018-09-28 06:22] LABS: Absolute Lymphocyte Count 1.45 X10^3/ul (0.83-4.51); Absolute Neutrophil Count 6.7 X10^3/uL (2.0-7.7); Basophil# 0.01 X10^3/uL; Basophil% 0.1 % (0-1); Eosinophil# 0.11 X10^3/uL; Eosinophils% 1.2 % (0-5); Hematocrit 34.9 % (37-47); Lymphocyte # 1.45 X10^3/ul (4.0); Lymphocyte % 15.7 % (19-41); Mean Corp Hgb Conc 31.5 g/gl (32-36); Mean Corpuscular Hgb 28.3 pg (27.0-32.0); Mean Corpuscular Volume 89.7 fL (81-99); Mean Platelet Vol. 9.7 fl (6.2-12.0); Monocyte# 0.94 X10^3/uL; Monocyte% 10.2 % (0-10); Neutrophil # 6.69 X10^3/uL (2.7-7.7); Neutrophil % 72.7 % (47-70); Platelet Count 207 K/mm3 (150-450); RBC Distribution Width CV 13.6 % (11.6-14.6); RBC Distribution Width SD 44.4 fl (35.1-43.9); Red Blood Count 3.89 M/mm3 (4.2-5.4); White Blood Count 9.2 K/mm3 (4.4-11.0)
[2018-09-28 06:23] LABS: POSITIVE COUNT NO; POSITIVE DIFFERENTIAL NO; POSITIVE MORPHOLOGY NO
[2018-09-28 06:43] LABS: Anion Gap 9 (5-15); BUN 6 mg/dL (7-18); BUN/Creat Ratio 9.4 RATIO (10-20); Chloride 112 mmol/L (98-107); Creatinine, Serum 0.64 mg/dL (0.55-1.02); EST Glomerular Filtration Rate 95 mL/min (>60); Est Glom Filt Rate - Afr Amer 115 mL/min (>60); Estimated Creatinine Clearance 33.21 ml/min; Glucose 70 mg/dL (74-106); Sodium Level 147 mmol/L (136-145)
[2018-09-28] MEDS: Venlafaxine XR 150 MG Capsule PO (08:18)
--- NOTE | 2018-09-28 08:54 | PCM.CONS.GEN ---
Problem List (1) Diverticulitis Status: Acute Reason for Consult Date of Consultation: 09/28/18 Reason for Consultation: Diverticulitis with abscess History of Present Illness: The patient is a 82 year old F who says she has been having a lot of abdominal pain. She says that she had a colonoscopy a year ago in [place] and this showed diverticulosis but no polyps. She complains of pain in her upper abdominal area as well as her lower area. She says she has been having runny stools and diarrhea. She denies any chills. She says she has never had diverticulitis in the past. 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 History of compression fracture of spine (Chronic) L1, january 29 Premature atrial contractions (Chronic) Mixed anxiety and depressive disorder (Chronic) Allergies difluprednate [From Durezol] Allergy (Verified 09/27/18 14:58) Other methylprednisolone Allergy (Verified 09/27/18 14:58) Rash Penicillins Allergy (Verified 09/27/18 14:58) Unknown prednisolone Allergy (Verified 09/27/18 14:58) Swelling citalopram Adverse Reaction (Verified 09/27/18 14:58) Diarrhea codeine Adverse Reaction (Verified 09/27/18 14:58) Nausea duloxetine HCl [From Cymbalta] Adverse Reaction (Verified 09/27/18 14:58) Diarrhea lamotrigine [From Lamictal] Adverse Reaction (Verified 09/27/18 18:56) DRUGGED FEELING metoclopramide HCl [From Reglan] Adverse Reaction (Verified 09/27/18 18:55) INVOLUNTARY BODY MOVEMENTS promethazine HCl [From Phenergan] Adverse Reaction (Verified 09/27/18 18:55) INVOLUNTARY BODY MOVEMENTS sertraline HCl [From Zoloft] Adverse Reaction (Verified 09/27/18 14:58) Diarrhea sulfamethoxazole [From Bactrim] Adverse Reaction (Verified 09/27/18 18:55) FELT WEIRD, HEAD NUMB, FELT DRUGGED, SHAKEY, NAUSEATED trimethoprim [From Bactrim] Adverse Reaction (Verified 09/27/18 18:56) FELT WEIRD, HEAD NUMB, FELT DRUGGED, SHAKEY, NAUSEATED Home Medications: Ambulatory Orders Medication Instructions Recorded Acetaminophen [Tylenol] 500 mg PO Q6H PRN PRN 03/29/16 Aspirin [Adult Low Dose Aspirin EC] 81 mg PO DINNER 03/29/16 Atorvastatin Calcium [Lipitor] 5 mg PO QODAY 03/29/16 Calcium Citrate/Vitamin D3 2 tab PO BID 03/29/16 [Calcium Citrate - Vit D Tablet] CycloSPORINE Ophthalmic [Restasis 1 drop EACH EYE BID 03/29/16 Ophthalmic] Docusate Sodium [Colace] 100 mg PO TID PRN PRN 03/29/16 Ergocalciferol [Vitamin D] 50,000 unit PO QMONTH 03/29/16 Flaxseed Oil [[place]-3 Flaxseed Oil] 1,000 mg PO DAILY 03/29/16 Hydroxychloroquine [Plaquenil] 200 mg PO DAILYCM 03/29/16 Melatonin 3 mg PO QHS 03/29/16 Omeprazole [Prilosec] 20 mg PO BREAKFAST 03/29/16 Pilocarpine HCl [Salagen] 5 mg PO TID 03/29/16 Polyethylene Glycol 3350 [Miralax] 17 gm PO DAILY PRN PRN 03/29/16 Pramipexole Di-HCl [Mirapex] 0.125 mg PO 1530,1800,2000,2200 03/29/16 Saliva Substitute Comb No.10 1 each MM PRN PRN 03/29/16 [Neutrasal] Oxycodone HCl/Acetaminophen 0.5 tablet PO BID 09/19/16 [Percocet 5-325] Clonazepam 0.25 mg PO QHS 09/27/18 Fluticasone Propionate 2 sprays NASAL DAILY 09/27/18 Gabapentin [Neurontin] 300 mg PO BID 09/27/18 Magnesium Oxide [Magnesium] 250 mg PO QHS 09/27/18 Mineral Oil/Petrolatum,White 3.5 gm OP DAILY 09/27/18 [Systane Nighttime Eye Oint] Multivitamin [Multiple Vitamins] 1 tab PO DAILY 09/27/18 Propylene Glycol/Peg 400 [Systane 30 ml OP 4X/DAY 09/27/18 Ultra 0.4-0.3% Eye Drp] Tumeric 500 mg PO DAILY 09/27/18 Venlafaxine HCl [Venlafaxine HCl 150 mg PO DAILY 09/27/18 ER] Vitamin B Complex [B Complex] 1 tab PO DAILY 09/27/18 Wheat Dextrin [Benefiber] 5 ml PO DAILY 09/27/18 Surgical History: cholecystectomy, hysterectomy - bladder and rectal repair., - - tonsillectomy. 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 Denies: Anorexia, Chills HEENT: Denies: Difficulty Swallowing Cardiovascular: Denies: Chest Pain Respiratory: Denies: Cough Gastrointestinal: Reports: Abdominal Pain, Diarrhea. Denies: Nausea Genitourinary: Denies: Incontinence Musculoskeletal: Denies: Joint Tenderness Neurological: Denies: Balance problems Psychiatric: Denies: Anxiety, Depression Hematologic/ Lymphatic: Denies: Anemia Patient Problems: Active and Suspected Problems Diverticulitis (Acute) - Physical Exam General: Alert, Oriented x3, Cooperative HEENT: Atraumatic, PERRLA Neck: No JVD Lungs: Normal air movement Cardiovascular: Regular rate, Regular Rhythm Abdomen: Soft, Tender - Patient has tenderness in the left lower quadrant as well as the left upper quadrant and epigastric region Extremities: No edema Skin: No rashes Musculoskeletal: No Muscle Wasting Neurological: Cranial nerves II-XII grossly intact Psych/Mental Status: Normal Affect Vital Signs Temp Pulse Resp BP Pulse Ox 98.6 F 82 18 98/44 L 94 09/28/18 07:52 09/28/18 07:52 09/28/18 07:52 09/28/18 07:52 09/28/18 07:52 Oxygen Delivery Method Room Air Weight: 106 lb 14.787 oz Body Mass Index (BMI) 21.6 Finger Stick Blood Glucose 139 Intake and Output for Last 24 Hours 09/26/18 09/27/18 09/28/18 23:59 23:59 23:59 Intake Total 1750 / 1750 Balance 1750 / 1750 Microbiology Past 72 Hours 09/27/18 17:00 Blood Culture - Preliminary Blood Culture (Wb) - Anticubital Left Laboratory Tests Past 24 Hrs 09/27/18 09/27/18 09/27/18 13:30 13:30 13:30 WBC 13.3 H RBC 4.67 Hgb 13.1 Hct 41.2 MCV 88.2 MCH 28.1 MCHC 31.8 L RDW 13.7 RDW Differential 44.0 H Plt Count 269 MPV 9.8 Immature Gran % (Auto) 0.200 Neut % (Auto) 80.0 H Lymph % (Auto) 10.4 L [place] % (Auto) 9.1 Eos % (Auto) 0.2 Baso % (Auto) 0.1 Absolute Neuts (auto) 10.7 H Absolute Lymphs (auto) 1.38 Total Counted Not Reportable Sodium 138 Potassium 3.2 L Chloride 100 Carbon Dioxide 29.0 Anion Gap 9 BUN 6 L Creatinine 0.72 Estim Creat Clear Calc 33.21 Est GFR (MDRD) Af Amer 100 Est GFR (MDRD) Non-Af 83 BUN/Creatinine Ratio 8.4 L Glucose 95 Lactic Acid 1.2 Calcium 8.9 Magnesium Total Bilirubin 0.60 AST 26 ALT 22 Alkaline Phosphatase 98 Troponin I < 0.015 Total Protein 7.5 Albumin 3.8 Globulin 3.7 Albumin/Globulin Ratio 1.0 Lipase 75 Urine Color Urine Clarity Urine pH Ur Specific [place] Urine Protein Urine Glucose (UA) Urine Ketones Urine Occult Blood Urine Nitrite Urine Bilirubin Urine Urobilinogen Ur Leukocyte Esterase Urine RBC Urine WBC Ur Squamous Epith Cells Urine Bacteria Urine Mucus 09/27/18 09/27/18 09/28/18 13:30 16:15 06:00 WBC 9.2 RBC 3.89 L Hgb 11.0 L Hct 34.9 L MCV 89.7 MCH 28.3 MCHC 31.5 L RDW 13.6 RDW Differential 44.4 H Plt Count 207 MPV 9.7 Immature Gran % (Auto) 0.100 Neut % (Auto) 72.7 H Lymph % (Auto) 15.7 L [place] % (Auto) 10.2 H Eos % (Auto) 1.2 Baso % (Auto) 0.1 Absolute Neuts (auto) 6.7 Absolute Lymphs (auto) 1.45 Total Counted Not Reportable Sodium Potassium Chloride Carbon Dioxide Anion Gap BUN Creatinine Estim Creat Clear Calc Est GFR (MDRD) Af Amer Est GFR (MDRD) Non-Af BUN/Creatinine Ratio Glucose Lactic Acid Calcium Magnesium 2.0 Total Bilirubin AST ALT Alkaline Phosphatase Troponin I Total Protein Albumin Globulin Albumin/Globulin Ratio Lipase Urine Color Straw Urine Clarity Clear Urine pH 7.0 Ur Specific [place] 1.010 Urine Protein Negative Urine Glucose (UA) Normal Urine Ketones Negative Urine Occult Blood 25 H Urine Nitrite Negative Urine Bilirubin Negative Urine Urobilinogen Normal Ur Leukocyte Esterase 25 H Urine RBC 0 SEEN Urine WBC 0-5 SEEN Ur Squamous Epith Cells 0 SEEN Urine Bacteria 0 SEEN Urine Mucus 0 SEEN 09/28/18 06:00 WBC RBC Hgb Hct MCV MCH MCHC RDW RDW Differential Plt Count MPV Immature Gran % (Auto) Neut % (Auto) Lymph % (Auto) [place] % (Auto) Eos % (Auto) Baso % (Auto) Absolute Neuts (auto) Absolute Lymphs (auto) Total Counted Sodium 147 H Potassium 4.0 Chloride 112 H Carbon Dioxide 26.0 Anion Gap 9 BUN 6 L Creatinine 0.64 Estim Creat Clear Calc 33.21 Est GFR (MDRD) Af Amer 115 Est GFR (MDRD) Non-Af 95 BUN/Creatinine Ratio 9.4 L Glucose 70 L Lactic Acid Calcium 8.0 L Magnesium Total Bilirubin AST ALT Alkaline Phosphatase Troponin I Total Protein Albumin Globulin Albumin/Globulin Ratio Lipase Urine Color Urine Clarity Urine pH Ur Specific [place] Urine Protein Urine Glucose (UA) Urine Ketones Urine Occult Blood Urine Nitrite Urine Bilirubin Urine Urobilinogen Ur Leukocyte Esterase Urine RBC Urine WBC Ur Squamous Epith Cells Urine Bacteria Urine Mucus Clinical Impression(s) from Imaging Studies Abdomen/Pelvis CT 09/27/18 15:23 IMPRESSION: Acute sigmoid diverticulitis compensated by formation of a small adjacent abscess with prominent inflammation of the bowel segment wall. 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 No apparent obstructive lesion. Electronically Signed: Charles Gordon MD at 16:46 EST Tel , Service support , Chest X-Ray 09/27/18 16:28 IMPRESSION: There are findings consistent with COPD. There is no evidence of acute chest disease. Electronically Signed: Zhao Lantigua MD at 16:46 EST , Service support , Assessment/Plan All Active Problems Diverticulitis (Acute) 82-year-old female with diverticulitis and small abscess 1. The patient is a small abscess. 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 For now I would recommend not advancing past clear liquids and continuing IV antibiotics. If her pain worsens I would consider surgery. Patient reports she has never had diverticulitis in the past but given her Sjogren's disease she may warrant elective sigmoid colectomy in the future. 2. The patient is also complaining of epigastric and left upper quadrant pain. She says this is much worse if she does not get the eat. This is concerning for gastritis or peptic ulcer disease. I will add Carafate to her regimen. Reinier Souza MD Pager: [facility] [address] [place] [address], [address] [place] [address] Office:
--- NOTE | 2018-09-28 08:58 | CON.PCM_ITS ---
Problem List (1) Diverticulitis Status: Acute Reason for Consult Date of Consultation: 09/28/18 Reason for Consultation: Diverticulitis with abscess History of Present Illness: The patient is a 82 year old F who says she has been having a lot of abdominal pain. She says that she had a colonoscopy a year ago in [place] and this showed diverticulosis but no polyps. She complains of pain in her upper abdominal area as well as her lower area. She says she has been having runny stools and diarrhea. She denies any chills. She says she has never had diverticulitis in the past. 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 History of compression fracture of spine (Chronic) L1, january 29 Premature atrial contractions (Chronic) Mixed anxiety and depressive disorder (Chronic) Allergies difluprednate [From Durezol] Allergy (Verified 09/27/18 14:58) Other methylprednisolone Allergy (Verified 09/27/18 14:58) Rash Penicillins Allergy (Verified 09/27/18 14:58) Unknown prednisolone Allergy (Verified 09/27/18 14:58) Swelling citalopram Adverse Reaction (Verified 09/27/18 14:58) Diarrhea codeine Adverse Reaction (Verified 09/27/18 14:58) Nausea duloxetine HCl [From Cymbalta] Adverse Reaction (Verified 09/27/18 14:58) Diarrhea lamotrigine [From Lamictal] Adverse Reaction (Verified 09/27/18 18:56) DRUGGED FEELING metoclopramide HCl [From Reglan] Adverse Reaction (Verified 09/27/18 18:55) INVOLUNTARY BODY MOVEMENTS promethazine HCl [From Phenergan] Adverse Reaction (Verified 09/27/18 18:55) INVOLUNTARY BODY MOVEMENTS sertraline HCl [From Zoloft] Adverse Reaction (Verified 09/27/18 14:58) Diarrhea sulfamethoxazole [From Bactrim] Adverse Reaction (Verified 09/27/18 18:55) FELT WEIRD, HEAD NUMB, FELT DRUGGED, SHAKEY, NAUSEATED trimethoprim [From Bactrim] Adverse Reaction (Verified 09/27/18 18:56) FELT WEIRD, HEAD NUMB, FELT DRUGGED, SHAKEY, NAUSEATED Home Medications: Ambulatory Orders Medication Instructions Recorded Acetaminophen [Tylenol] 500 mg PO Q6H PRN PRN 03/29/16 Aspirin [Adult Low Dose Aspirin EC] 81 mg PO DINNER 03/29/16 Atorvastatin Calcium [Lipitor] 5 mg PO QODAY 03/29/16 Calcium Citrate/Vitamin D3 2 tab PO BID 03/29/16 [Calcium Citrate - Vit D Tablet] CycloSPORINE Ophthalmic [Restasis 1 drop EACH EYE BID 03/29/16 Ophthalmic] Docusate Sodium [Colace] 100 mg PO TID PRN PRN 03/29/16 Ergocalciferol [Vitamin D] 50,000 unit PO QMONTH 03/29/16 Flaxseed Oil [[place]-3 Flaxseed Oil] 1,000 mg PO DAILY 03/29/16 Hydroxychloroquine [Plaquenil] 200 mg PO DAILYCM 03/29/16 Melatonin 3 mg PO QHS 03/29/16 Omeprazole [Prilosec] 20 mg PO BREAKFAST 03/29/16 Pilocarpine HCl [Salagen] 5 mg PO TID 03/29/16 Polyethylene Glycol 3350 [Miralax] 17 gm PO DAILY PRN PRN 03/29/16 Pramipexole Di-HCl [Mirapex] 0.125 mg PO 1530,1800,2000,2200 03/29/16 Saliva Substitute Comb No.10 1 each MM PRN PRN 03/29/16 [Neutrasal] Oxycodone HCl/Acetaminophen 0.5 tablet PO BID 09/19/16 [Percocet 5-325] Clonazepam 0.25 mg PO QHS 09/27/18 Fluticasone Propionate 2 sprays NASAL DAILY 09/27/18 Gabapentin [Neurontin] 300 mg PO BID 09/27/18 Magnesium Oxide [Magnesium] 250 mg PO QHS 09/27/18 Mineral Oil/Petrolatum,White 3.5 gm OP DAILY 09/27/18 [Systane Nighttime Eye Oint] Multivitamin [Multiple Vitamins] 1 tab PO DAILY 09/27/18 Propylene Glycol/Peg 400 [Systane 30 ml OP 4X/DAY 09/27/18 Ultra 0.4-0.3% Eye Drp] Tumeric 500 mg PO DAILY 09/27/18 Venlafaxine HCl [Venlafaxine HCl 150 mg PO DAILY 09/27/18 ER] Vitamin B Complex [B Complex] 1 tab PO DAILY 09/27/18 Wheat Dextrin [Benefiber] 5 ml PO DAILY 09/27/18 Surgical History: cholecystectomy, hysterectomy - bladder and rectal repair., - - tonsillectomy. 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 Denies: Anorexia, Chills HEENT: Denies: Difficulty Swallowing Cardiovascular: Denies: Chest Pain Respiratory: Denies: Cough Gastrointestinal: Reports: Abdominal Pain, Diarrhea. Denies: Nausea Genitourinary: Denies: Incontinence Musculoskeletal: Denies: Joint Tenderness Neurological: Denies: Balance problems Psychiatric: Denies: Anxiety, Depression Hematologic/ Lymphatic: Denies: Anemia Patient Problems: Active and Suspected Problems Diverticulitis (Acute) - Physical Exam General: Alert, Oriented x3, Cooperative HEENT: Atraumatic, PERRLA Neck: No JVD Lungs: Normal air movement Cardiovascular: Regular rate, Regular Rhythm Abdomen: Soft, Tender - Patient has tenderness in the left lower quadrant as well as the left upper quadrant and epigastric region Extremities: No edema Skin: No rashes Musculoskeletal: No Muscle Wasting Neurological: Cranial nerves II-XII grossly intact Psych/Mental Status: Normal Affect Vital Signs Temp Pulse Resp BP Pulse Ox 98.6 F 82 18 98/44 L 94 09/28/18 07:52 09/28/18 07:52 09/28/18 07:52 09/28/18 07:52 09/28/18 07:52 Oxygen Delivery Method Room Air Weight: 106 lb 14.787 oz Body Mass Index (BMI) 21.6 Finger Stick Blood Glucose 139 Intake and Output for Last 24 Hours 09/26/18 09/27/18 09/28/18 23:59 23:59 23:59 Intake Total 1750 / 1750 Balance 1750 / 1750 Microbiology Past 72 Hours 09/27/18 17:00 Blood Culture - Preliminary Blood Culture (Wb) - Anticubital Left Laboratory Tests Past 24 Hrs 09/27/18 09/27/18 09/27/18 13:30 13:30 13:30 WBC 13.3 H RBC 4.67 Hgb 13.1 Hct 41.2 MCV 88.2 MCH 28.1 MCHC 31.8 L RDW 13.7 RDW Differential 44.0 H Plt Count 269 MPV 9.8 Immature Gran % (Auto) 0.200 Neut % (Auto) 80.0 H Lymph % (Auto) 10.4 L [place] % (Auto) 9.1 Eos % (Auto) 0.2 Baso % (Auto) 0.1 Absolute Neuts (auto) 10.7 H Absolute Lymphs (auto) 1.38 Total Counted Not Reportable Sodium 138 Potassium 3.2 L Chloride 100 Carbon Dioxide 29.0 Anion Gap 9 BUN 6 L Creatinine 0.72 Estim Creat Clear Calc 33.21 Est GFR (MDRD) Af Amer 100 Est GFR (MDRD) Non-Af 83 BUN/Creatinine Ratio 8.4 L Glucose 95 Lactic Acid 1.2 Calcium 8.9 Magnesium Total Bilirubin 0.60 AST 26 ALT 22 Alkaline Phosphatase 98 Troponin I < 0.015 Total Protein 7.5 Albumin 3.8 Globulin 3.7 Albumin/Globulin Ratio 1.0 Lipase 75 Urine Color Urine Clarity Urine pH Ur Specific [place] Urine Protein Urine Glucose (UA) Urine Ketones Urine Occult Blood Urine Nitrite Urine Bilirubin Urine Urobilinogen Ur Leukocyte Esterase Urine RBC Urine WBC Ur Squamous Epith Cells Urine Bacteria Urine Mucus 09/27/18 09/27/18 09/28/18 13:30 16:15 06:00 WBC 9.2 RBC 3.89 L Hgb 11.0 L Hct 34.9 L MCV 89.7 MCH 28.3 MCHC 31.5 L RDW 13.6 RDW Differential 44.4 H Plt Count 207 MPV 9.7 Immature Gran % (Auto) 0.100 Neut % (Auto) 72.7 H Lymph % (Auto) 15.7 L [place] % (Auto) 10.2 H Eos % (Auto) 1.2 Baso % (Auto) 0.1 Absolute Neuts (auto) 6.7 Absolute Lymphs (auto) 1.45 Total Counted Not Reportable Sodium Potassium Chloride Carbon Dioxide Anion Gap BUN Creatinine Estim Creat Clear Calc Est GFR (MDRD) Af Amer Est GFR (MDRD) Non-Af BUN/Creatinine Ratio Glucose Lactic Acid Calcium Magnesium 2.0 Total Bilirubin AST ALT Alkaline Phosphatase Troponin I Total Protein Albumin Globulin Albumin/Globulin Ratio Lipase Urine Color Straw Urine Clarity Clear Urine pH 7.0 Ur Specific [place] 1.010 Urine Protein Negative Urine Glucose (UA) Normal Urine Ketones Negative Urine Occult Blood 25 H Urine Nitrite Negative Urine Bilirubin Negative Urine Urobilinogen Normal Ur Leukocyte Esterase 25 H Urine RBC 0 SEEN Urine WBC 0-5 SEEN Ur Squamous Epith Cells 0 SEEN Urine Bacteria 0 SEEN Urine Mucus 0 SEEN 09/28/18 06:00 WBC RBC Hgb Hct MCV MCH MCHC RDW RDW Differential Plt Count MPV Immature Gran % (Auto) Neut % (Auto) Lymph % (Auto) [place] % (Auto) Eos % (Auto) Baso % (Auto) Absolute Neuts (auto) Absolute Lymphs (auto) Total Counted Sodium 147 H Potassium 4.0 Chloride 112 H Carbon Dioxide 26.0 Anion Gap 9 BUN 6 L Creatinine 0.64 Estim Creat Clear Calc 33.21 Est GFR (MDRD) Af Amer 115 Est GFR (MDRD) Non-Af 95 BUN/Creatinine Ratio 9.4 L Glucose 70 L Lactic Acid Calcium 8.0 L Magnesium Total Bilirubin AST ALT Alkaline Phosphatase Troponin I Total Protein Albumin Globulin Albumin/Globulin Ratio Lipase Urine Color Urine Clarity Urine pH Ur Specific [place] Urine Protein Urine Glucose (UA) Urine Ketones Urine Occult Blood Urine Nitrite Urine Bilirubin Urine Urobilinogen Ur Leukocyte Esterase Urine RBC Urine WBC Ur Squamous Epith Cells Urine Bacteria Urine Mucus Clinical Impression(s) from Imaging Studies Abdomen/Pelvis CT 09/27/18 15:23 IMPRESSION: Acute sigmoid diverticulitis compensated by formation of a small adjacent abscess with prominent inflammation of the bowel segment wall. 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 No apparent obstructive lesion. Electronically Signed: Charles Gordon MD at 16:46 EST Tel , Service support , Chest X-Ray 09/27/18 16:28 IMPRESSION: There are findings consistent with COPD. There is no evidence of acute chest disease. Electronically Signed: Zhao Lantigua MD at 16:46 EST , Service support , Assessment/Plan All Active Problems Diverticulitis (Acute) 82-year-old female with diverticulitis and small abscess 1. The patient is a small abscess. 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 For now I would recommend not advancing past clear liquids and continuing IV antibiotics. If her pain worsens I would consider surgery. Patient reports she has never had diverticulitis in the past but given her Sjogren's disease she may warrant elective sigmoid colectomy in the future. 2. The patient is also complaining of epigastric and left upper quadrant pain. She says this is much worse if she does not get the eat. This is concerning for gastritis or peptic ulcer disease. I will add Carafate to her regimen. Reinier Souza MD Pager: [facility] [address] [place] [address], [address] [place] [address] Office:
--- NOTE | 2018-09-28 09:29 | PCM.PN.HOSP ---
Patient Problems: Active and Suspected Problems Diverticulitis (Acute) Subjective: Patient seen and examined. She was admitted with a complaint of left lower quadrant pain and is been managed for acute diverticulitis with diverticular abscess. Patient still complains of abdominal pain this morning. She denies any fever or chills, any cough or chest pain, any shortness of breath, any diarrhea vomiting. General surgery is on board. Labs and vitals reviewed. Vitals/I&O's: Vital Signs Temp Pulse Resp BP Pulse Ox 98.6 F 82 18 98/44 L 94 09/28/18 07:52 09/28/18 07:52 09/28/18 07:52 09/28/18 07:52 09/28/18 07:52 Oxygen Delivery Method Room Air Weight: 106 lb 14.787 oz Body Mass Index (BMI) 21.6 Finger Stick Blood Glucose 139 Intake and Output for Last 24 Hours 09/26/18 09/27/18 09/28/18 23:59 23:59 23:59 Intake Total 1750 / 1750 Balance 1750 / 1750 General: Alert, Oriented x3, Cooperative, No apparent distress HEENT: Atraumatic, PERRLA, EOMI, Normocephalic Oral: Moist Mucosa Neck: Supple, No JVD, Negative Carotid Bruits Lungs: Clear to auscultation, Normal air movement, No rhonchi, No wheeze, No rales Cardiovascular: Regular rate, Regular Rhythm, Normal S1, Normal S2, No murmurs Abdomen: Bowel Sounds Present, Soft, Non-Distended, - - Moderate tenderness in the epigastric region and mild tenderness in the left lower quadrant region. She had no guarding or rebound tenderness. Extremities: No clubbing, No cyanosis, No edema, Capillary Refill Less than 3 Seconds Skin: No rashes, No breakdown Musculoskeletal: No Tenderness to Palpation of Joints or Extremities Lymphatic: No Cervical, Supraclavicular, or Inguinal Adenopathy Neurological: Cranial nerves II-XII grossly intact Psych/Mental Status: Normal Affect, Appropriate, Alert and oriented to time, place, person, mood and affect Microbiology Past 72 Hours 09/27/18 17:00 Blood Culture (Wb) - Anticubital Left Blood Culture - Preliminary Laboratory Results 09/27/18 13:30: WBC 13.3 H, RBC 4.67, Hgb 13.1, Hct 41.2, MCV 88.2, MCH 28.1, MCHC 31.8 L, RDW 13.7, RDW Differential 44.0 H, Plt Count 269, MPV 9.8, Immature Gran % (Auto) 0.200, Neut % (Auto) 80.0 H, Lymph % (Auto) 10.4 L, [place] % (Auto) 9.1, Eos % (Auto) 0.2, Baso % (Auto) 0.1, Absolute Neuts (auto) 10.7 H, Absolute Lymphs (auto) 1.38, Total Counted Not Reportable 09/27/18 13:30: Sodium 138, Potassium 3.2 L, Chloride 100, Carbon Dioxide 29.0, Anion Gap 9, BUN 6 L, Creatinine 0.72, Estim Creat Clear Calc 33.21, Est GFR (MDRD) Af Amer 100, Est GFR (MDRD) Non-Af 83, BUN/Creatinine Ratio 8.4 L, Glucose 95, Calcium 8.9, Total Bilirubin 0.60, AST 26, ALT 22, Alkaline Phosphatase 98, Troponin I < 0.015, Total Protein 7.5, Albumin 3.8, Globulin 3.7, Albumin/Globulin Ratio 1.0, Lipase 75 09/27/18 13:30: Lactic Acid 1.2 09/27/18 13:30: Magnesium 2.0 09/27/18 16:15: Urine Color Straw, Urine Clarity Clear, Urine pH 7.0, Ur Specific [place] 1.010, Urine Protein Negative, Urine Glucose (UA) Normal, Urine Ketones Negative, Urine Occult Blood 25 H, Urine Nitrite Negative, Urine Bilirubin Negative, Urine Urobilinogen Normal, Ur Leukocyte Esterase 25 H, Urine RBC 0 SEEN, Urine WBC 0-5 SEEN, Ur Squamous Epith Cells 0 SEEN, Urine Bacteria 0 SEEN, Urine Mucus 0 SEEN 09/28/18 06:00: WBC 9.2, RBC 3.89 L, Hgb 11.0 L, Hct 34.9 L, MCV 89.7, MCH 28.3, MCHC 31.5 L, RDW 13.6, RDW Differential 44.4 H, Plt Count 207, MPV 9.7, Immature Gran % (Auto) 0.100, Neut % (Auto) 72.7 H, Lymph % (Auto) 15.7 L, [place] % (Auto) 10.2 H, Eos % (Auto) 1.2, Baso % (Auto) 0.1, Absolute Neuts (auto) 6.7, Absolute Lymphs (auto) 1.45, Total Counted Not Reportable 09/28/18 06:00: Sodium 147 H, Potassium 4.0, Chloride 112 H, Carbon Dioxide 26.0, Anion Gap 9, BUN 6 L, Creatinine 0.64, Estim Creat Clear Calc 33.21, Est GFR (MDRD) Af Amer 115, Est GFR (MDRD) Non-Af 95, BUN/Creatinine Ratio 9.4 L, Glucose 70 L, Calcium 8.0 L Current Medications Artificial Tears (Tears Naturale, Artificial Tears) 1 - 2 drop EACH EYE Q2H PRN PRN PRN Reason: DRY EYES Last Admin: 09/28/18 06:13 Dose: 1 drop Aspirin (Ecotrin) 81 mg PO 1700 [facility] Atorvastatin Calcium (Lipitor) 5 mg PO QODAY@2200 [facility] Clonazepam (Klonopin) 0.25 mg PO QHS [facility] Last Admin: 09/27/18 22:44 Dose: 0.25 mg Enoxaparin Sodium (Lovenox) 30 mg SC DAILY@1000 [facility] Gabapentin (Neurontin) 300 mg PO BID@1600,1900 [facility] Last Admin: 09/27/18 19:54 Dose: Not Given Hydroxychloroquine Sulfate (Plaquenil) 200 mg PO 1700 [facility] Ciprofloxacin (Cipro) 400 mg in 200 mls @ 200 mls/hr IV Q12 [facility] Pantoprazole Sodium 40 mg/ (Sodium Chloride) 110 mls @ 330 mls/hr IV Q24 [facility] Piperacillin Sod/Tazobactam Sod (Zosyn) 3.375 gm in 50 mls @ 12.5 mls/hr IV Q8 [facility] Last Admin: 09/28/18 06:05 Dose: 12.5 mls/hr Potassium Chloride/Sodium Chloride (Kcl 20meq In 0.45% Ns 1000ml) 1,000 mls @ 100 mls/hr IV .Q10H [facility] Melatonin (Melatonin) 3 mg PO QHS [facility] Last Admin: 09/27/18 22:41 Dose: 3 mg Morphine Sulfate () 1 - 2 mg IV Q4H PRN PRN PRN Reason: SEVERE PAIN (6-10/10) Ondansetron HCl (Zofran) 4 mg IV Q6H PRN PRN PRN Reason: NAUSEA/VOMITING Pramipexole Dihydrochloride (Mirapex) 0.125 mg PO 1530,1800,2000,2200 [facility] Last Admin: 09/27/18 22:41 Dose: 0.125 mg Sodium Chloride () 5 - 15 ml IV UD PRN PRN Reason: SALINE FLUSH Last Admin: 09/28/18 03:25 Dose: 10 ml Sucralfate (Carafate) 1 gm PO 1HR_ACHS [facility] Venlafaxine HCl (Effexor Xr) 150 mg PO DAILY [facility] Last Admin: 09/28/18 08:18 Dose: 150 mg Medical Necessity - Tobacco Use Smoking Status: Never smoker Tobacco Use: Cigarettes Assessment/Plan All Active Problems Diverticulitis (Acute) 1. Acute sigmoid diverticulitis with diverticular abscess. Still complains of abdominal pain. She denies any nausea or vomiting. Has no fever or chills. Currently on IV Zosyn and ciprofloxacin. On clear liquid diet. Leukocytosis has resolved and white cell count is down to 9.2 from 13.3 on admission. General surgery on board. Recommends not advancing past clear liquids. continue IV antibiotics Sulcrate added on due to epigastric tenderness which may be indicated of gastritis or peptic ulcer disease the patient doesnt have a history of both. 2. Hyponatremia: Sodium is 147. Likely due to IV fluid administration. Will switch IV fluids to half-normal saline. 3. Hypokalemia: Potassium was 3.2 on admission. Resolved. Potassium is now 4. 4. Sjogren's syndrome: On cyclosporine eyedrops, Plaquenil and pilocarpine 5. Ankylosing spondylitis: On gabapentin and Plaquenil. On Tylenol as needed IV morphine as needed. 6. Restless leg syndrome: On Mirapex and venlafaxine. 7. Anxiety and depression: On clonazepam, melatonin and venlafaxine. 8. 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 DVT prophylaxis: Lovenox Code Visit Inpatient E&M: [id number] [facility] L3
--- NOTE | 2018-09-28 09:34 | PN_ITS ---
Patient Problems: Active and Suspected Problems Diverticulitis (Acute) Subjective: Patient seen and examined. She was admitted with a complaint of left lower quadrant pain and is been managed for acute diverticulitis with diverticular abscess. Patient still complains of abdominal pain this morning. She denies any fever or chills, any cough or chest pain, any shortness of breath, any diarrhea vomiting. General surgery is on board. Labs and vitals reviewed. Vitals/I&O's: Vital Signs Temp Pulse Resp BP Pulse Ox 98.6 F 82 18 98/44 L 94 09/28/18 07:52 09/28/18 07:52 09/28/18 07:52 09/28/18 07:52 09/28/18 07:52 Oxygen Delivery Method Room Air Weight: 106 lb 14.787 oz Body Mass Index (BMI) 21.6 Finger Stick Blood Glucose 139 Intake and Output for Last 24 Hours 09/26/18 09/27/18 09/28/18 23:59 23:59 23:59 Intake Total 1750 / 1750 Balance 1750 / 1750 General: Alert, Oriented x3, Cooperative, No apparent distress HEENT: Atraumatic, PERRLA, EOMI, Normocephalic Oral: Moist Mucosa Neck: Supple, No JVD, Negative Carotid Bruits Lungs: Clear to auscultation, Normal air movement, No rhonchi, No wheeze, No rales Cardiovascular: Regular rate, Regular Rhythm, Normal S1, Normal S2, No murmurs Abdomen: Bowel Sounds Present, Soft, Non-Distended, - - Moderate tenderness in the epigastric region and mild tenderness in the left lower quadrant region. She had no guarding or rebound tenderness. Extremities: No clubbing, No cyanosis, No edema, Capillary Refill Less than 3 Seconds Skin: No rashes, No breakdown Musculoskeletal: No Tenderness to Palpation of Joints or Extremities Lymphatic: No Cervical, Supraclavicular, or Inguinal Adenopathy Neurological: Cranial nerves II-XII grossly intact Psych/Mental Status: Normal Affect, Appropriate, Alert and oriented to time, place, person, mood and affect Microbiology Past 72 Hours 09/27/18 17:00 Blood Culture (Wb) - Anticubital Left Blood Culture - Preliminary Laboratory Results 09/27/18 13:30: WBC 13.3 H, RBC 4.67, Hgb 13.1, Hct 41.2, MCV 88.2, MCH 28.1, MCHC 31.8 L, RDW 13.7, RDW Differential 44.0 H, Plt Count 269, MPV 9.8, Immature Gran % (Auto) 0.200, Neut % (Auto) 80.0 H, Lymph % (Auto) 10.4 L, [place] % (Auto) 9.1, Eos % (Auto) 0.2, Baso % (Auto) 0.1, Absolute Neuts (auto) 10.7 H, Absolute Lymphs (auto) 1.38, Total Counted Not Reportable 09/27/18 13:30: Sodium 138, Potassium 3.2 L, Chloride 100, Carbon Dioxide 29.0, Anion Gap 9, BUN 6 L, Creatinine 0.72, Estim Creat Clear Calc 33.21, Est GFR (MDRD) Af Amer 100, Est GFR (MDRD) Non-Af 83, BUN/Creatinine Ratio 8.4 L, Glucose 95, Calcium 8.9, Total Bilirubin 0.60, AST 26, ALT 22, Alkaline Phosphatase 98, Troponin I < 0.015, Total Protein 7.5, Albumin 3.8, Globulin 3.7, Albumin/Globulin Ratio 1.0, Lipase 75 09/27/18 13:30: Lactic Acid 1.2 09/27/18 13:30: Magnesium 2.0 09/27/18 16:15: Urine Color Straw, Urine Clarity Clear, Urine pH 7.0, Ur Specific Colp 1.010, Urine Protein Negative, Urine Glucose (UA) Normal, Urine Ketones Negative, Urine Occult Blood 25 H, Urine Nitrite Negative, Urine Bilirubin Negative, Urine Urobilinogen Normal, Ur Leukocyte Esterase 25 H, Urine RBC 0 SEEN, Urine WBC 0-5 SEEN, Ur Squamous Epith Cells 0 SEEN, Urine Bacteria 0 SEEN, Urine Mucus 0 SEEN 09/28/18 06:00: WBC 9.2, RBC 3.89 L, Hgb 11.0 L, Hct 34.9 L, MCV 89.7, MCH 28.3, MCHC 31.5 L, RDW 13.6, RDW Differential 44.4 H, Plt Count 207, MPV 9.7, Immature Gran % (Auto) 0.100, Neut % (Auto) 72.7 H, Lymph % (Auto) 15.7 L, [place] % (Auto) 10.2 H, Eos % (Auto) 1.2, Baso % (Auto) 0.1, Absolute Neuts (auto) 6.7, Absolute Lymphs (auto) 1.45, Total Counted Not Reportable 09/28/18 06:00: Sodium 147 H, Potassium 4.0, Chloride 112 H, Carbon Dioxide 26.0, Anion Gap 9, BUN 6 L, Creatinine 0.64, Estim Creat Clear Calc 33.21, Est GFR (MDRD) Af Amer 115, Est GFR (MDRD) Non-Af 95, BUN/Creatinine Ratio 9.4 L, Glucose 70 L, Calcium 8.0 L Current Medications Artificial Tears (Tears Naturale, Artificial Tears) 1 - 2 drop EACH EYE Q2H PRN PRN PRN Reason: DRY EYES Last Admin: 09/28/18 06:13 Dose: 1 drop Aspirin (Ecotrin) 81 mg PO 1700 [facility] Atorvastatin Calcium (Lipitor) 5 mg PO QODAY@2200 [facility] Clonazepam (Klonopin) 0.25 mg PO QHS [facility] Last Admin: 09/27/18 22:44 Dose: 0.25 mg Enoxaparin Sodium (Lovenox) 30 mg SC DAILY@1000 [facility] Gabapentin (Neurontin) 300 mg PO BID@1600,1900 [facility] Last Admin: 09/27/18 19:54 Dose: Not Given Hydroxychloroquine Sulfate (Plaquenil) 200 mg PO 1700 [facility] Ciprofloxacin (Cipro) 400 mg in 200 mls @ 200 mls/hr IV Q12 [facility] Pantoprazole Sodium 40 mg/ (Sodium Chloride) 110 mls @ 330 mls/hr IV Q24 [facility] Piperacillin Sod/Tazobactam Sod (Zosyn) 3.375 gm in 50 mls @ 12.5 mls/hr IV Q8 [facility] Last Admin: 09/28/18 06:05 Dose: 12.5 mls/hr Potassium Chloride/Sodium Chloride (Kcl 20meq In 0.45% Ns 1000ml) 1,000 mls @ 100 mls/hr IV .Q10H [facility] Melatonin (Melatonin) 3 mg PO QHS [facility] Last Admin: 09/27/18 22:41 Dose: 3 mg Morphine Sulfate () 1 - 2 mg IV Q4H PRN PRN PRN Reason: SEVERE PAIN (6-10/10) Ondansetron HCl (Zofran) 4 mg IV Q6H PRN PRN PRN Reason: NAUSEA/VOMITING Pramipexole Dihydrochloride (Mirapex) 0.125 mg PO 1530,1800,2000,2200 [facility] Last Admin: 09/27/18 22:41 Dose: 0.125 mg Sodium Chloride () 5 - 15 ml IV UD PRN PRN Reason: SALINE FLUSH Last Admin: 09/28/18 03:25 Dose: 10 ml Sucralfate (Carafate) 1 gm PO 1HR_ACHS [facility] Venlafaxine HCl (Effexor Xr) 150 mg PO DAILY [facility] Last Admin: 09/28/18 08:18 Dose: 150 mg Medical Necessity - Tobacco Use Smoking Status: Never smoker Tobacco Use: Cigarettes Assessment/Plan All Active Problems Diverticulitis (Acute) 1. Acute sigmoid diverticulitis with diverticular abscess. * Still complains of abdominal pain. She denies any nausea or vomiting. * Has no fever or chills. * Currently on IV Zosyn and ciprofloxacin. On clear liquid diet. * Leukocytosis has resolved and white cell count is down to 9.2 from 13.3 on admission. * General surgery on board. Recommends not advancing past clear liquids. continue IV antibiotics * Sulcrate added on due to epigastric tenderness which may be indicated of gastritis or peptic ulcer disease the patient doesnt have a history of both. * 2. Hyponatremia: Sodium is 147. Likely due to IV fluid administration. Will switch IV fluids to half-normal saline. 3. Hypokalemia: Potassium was 3.2 on admission. Resolved. Potassium is now 4. 4. Sjogren's syndrome: On cyclosporine eyedrops, Plaquenil and pilocarpine 5. Ankylosing spondylitis: On gabapentin and Plaquenil. On Tylenol as needed IV morphine as needed. 6. Restless leg syndrome: On Mirapex and venlafaxine. 7. Anxiety and depression: On clonazepam, melatonin and venlafaxine. 8. 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 DVT prophylaxis: Lovenox Code Visit Inpatient E&M: 89832 Subs Hosp L3
[2018-09-28] MEDS: Enoxaparin 30 MG/0.3 ML Syringe SC (10:30)
[2018-09-28] MEDS: Sucralfate 1 GM Tablet PO ×3 (10:31→21:40)
[2018-09-28] MEDS: oxyCODONE 5 MG Tablet 2.5 MG PO ×2 (11:35→18:53)
[2018-09-28] MEDS: Acetaminophen 325 MG Tablet PO ×2 (11:35→18:52)
--- NOTE | 2018-09-28 11:36 | CASEMGMT ---
Social Work Note Per [employer] worker questions, pt has completed HCPOA and Living will and provided copies to [facility]. SW checked pt's chart, advanced directives are not on pt's chart or e-chart. SW in to meet with pt. SW introduced self and role at [facility]. Pt is alert and orientated. Pt confirms that she has completed advanced directives and has provided [facility] with copies. SW informed pt that this worker checked pt's chart and no copies are found. Pt states she knows where the documents are at home and is able to bring in copies to [facility]. Patsy Mason ACCOUNTING REPRESENTATIVE, FARM PRODUCT PURCHASER
--- NOTE | 2018-09-28 11:45 | CASEMGMT ---
RN CM Face to Face with patient for initial transition planning/care coordination assessment. RN CM introduced self and role at [facility]. Patient lying in bed, alert and oriented. Patient willing to participate in assessment and is able to answer all questions appropriately. Care providers, pharmacy, and demographics verified. Patient wishes to discharge home, denies need for home health at this time. Patient states she has no further needs or concerns at this time. CM to follow for discharge planning needs that may arise. PCP: [facility] Specialists: Gene neurologist; Jae trim mechanic; BATOOL Manley Preferred Pharmacy: [facility] Insurance: [employer] Prescription Benefit: Yes Living Will/HPOA: Yes, son and daughter LNOK: at [facility] for dementia, son and daughter Living Arrangements: [facility] [place] ramp to enter the home. Patient is independent at home. Transportation: Self/family/friend DME/HHC: Patient has raised toilet and grab bars. Has cleaning person 4 hours per week. Disposition Plan: Patient to discharge home with support of family and friends and follow-up plans in place. Patsy MATT, RN, CM
[2018-09-28] MEDS: Pramipexole Di-HCl 0.125 MG Tablet PO ×4 (14:13→21:40)
--- NOTE | 2018-09-28 14:15 | CHAPLAIN ---
Type of Pastoral Visit _x__ Initial Visit ___ Follow-up Visit ___ On-call Visit ___ General Patient Visit ___ Spiritual Assessment ___ Family Conference ___ Bereavement ___ Rapid Response ___ Code Blue ___ Other (describe below) Pastoral Care Referral From _x__ Patient ___ Family ___ Nurse ___ Physician ___ Car Packer ___ Intervention Teacher ___ Other (describe below) Sacrament/Intervention _x__ Active listening ___ Anointing ___ Mosque ___ Bereavement ___ Communion _x__ Amy exploration ___ _x__ Life review _x__ Prayer ___ Reconciliation ___ Sacrament of Sick _x__ Supportive presence ___ Wedding ___ Other (describe below) Pastoral Comments long conversation about may and alevism life; pt concern is for her in an ECF with dementia
[2018-09-28] MEDS: Gabapentin 300 MG Capsule PO ×2 (16:08→18:52)
[2018-09-28] MEDS: Hydroxychloroquine 200 MG Tablet PO (17:59)
[2018-09-28] MEDS: Aspirin E.C. 81 MG Tablet PO (18:00)
[2018-09-28] MEDS: Pilocarpine HCl 5 MG Tablet PO (18:00)
[2018-09-28] MEDS: CycloSPORINE Ophthalmic 1 DROP DROPERETTE 1 DRP OPHTHALMIC (20:03)
[2018-09-28] MEDS: MELATONIN 3 MG TABLET PO (21:39)
[2018-09-28] MEDS: Atorvastatin Calcium 10 MG Tablet 5 MG PO (21:39)
[2018-09-28] MEDS: clonazePAM 0.5 MG Tablet 0.25 MG PO (21:44)
[2018-09-29] VITALS (7 sets, daily range): BP systolic 95–138; BP diastolic 44–69; PULSE 65–82; RESP 16–18; TEMP 36.2–36.9; O2SAT 95–100
[2018-09-29] MEDS: Piperacil/Tazobactam 3.375 GM/50 ML ML IV ×3 (05:04→22:43)
[2018-09-29 05:36] LABS: Absolute Lymphocyte Count 1.47 X10^3/ul (0.83-4.51); Absolute Neutrophil Count 4.1 X10^3/uL (2.0-7.7); Basophil# 0.01 X10^3/uL; Basophil% 0.2 % (0-1); Eosinophil# 0.17 X10^3/uL; Eosinophils% 2.6 % (0-5); Hematocrit 36.6 % (37-47); Hemoglobin 11.4 g/dl (12.0-15.0); Lymphocyte # 1.47 X10^3/ul (4.0); Lymphocyte % 22.6 % (19-41); Mean Corp Hgb Conc 31.1 g/gl (32-36); Mean Corpuscular Hgb 27.9 pg (27.0-32.0); Mean Corpuscular Volume 89.7 fL (81-99); Mean Platelet Vol. 10.3 fl (6.2-12.0); Monocyte# 0.73 X10^3/uL; Monocyte% 11.2 % (0-10); Neutrophil % 63.1 % (47-70); Platelet Count 220 K/mm3 (150-450); RBC Distribution Width CV 13.5 % (11.6-14.6); RBC Distribution Width SD 43.8 fl (35.1-43.9); Red Blood Count 4.08 M/mm3 (4.2-5.4); White Blood Count 6.5 K/mm3 (4.4-11.0)
[2018-09-29 05:41] LABS: POSITIVE COUNT NO; POSITIVE DIFFERENTIAL NO; POSITIVE MORPHOLOGY NO
[2018-09-29 05:49] LABS: Anion Gap 8 (5-15); BUN 4 mg/dL (7-18); BUN/Creat Ratio 6.3 RATIO (10-20); Calcium,Total 8.6 mg/dL (8.5-10.1); Chloride 111 mmol/L (98-107); Creatinine, Serum 0.64 mg/dL (0.55-1.02); EST Glomerular Filtration Rate 95 mL/min (>60); Est Glom Filt Rate - Afr Amer 115 mL/min (>60); Estimated Creatinine Clearance 33.21 ml/min; Glucose 78 mg/dL (74-106); Sodium Level 144 mmol/L (136-145)
[2018-09-29] MEDS: Sucralfate 1 GM Tablet PO ×4 (06:15→22:43)
[2018-09-29] MEDS: Pilocarpine HCl 5 MG Tablet PO ×3 (06:16→17:54)
--- NOTE | 2018-09-29 08:02 | PN.SURG_ITS ---
Patient Problems: Active and Suspected Problems Diverticulitis (Acute) Subjective: Patient reports that her pain is improved. She is having diarrhea. - Physical Exam General: Alert, Oriented x3, Cooperative Lungs: Normal air movement Cardiovascular: Regular rate, Regular Rhythm Abdomen: Soft, Non-Distended, Tender Vital Signs Temp Pulse Resp BP Pulse Ox 97.8 F 82 17 95/44 L 96 09/29/18 02:22 09/29/18 07:50 09/29/18 02:22 09/29/18 02:22 09/29/18 02:22 Oxygen Delivery Method Room Air Weight: 106 lb 14.787 oz Body Mass Index (BMI) 21.6 Finger Stick Blood Glucose 139 Intake and Output for Last 24 Hours 09/27/18 09/28/18 09/29/18 23:59 23:59 23:59 Intake Total 3798 / 3798 1797 / 1797 Output Total 400 / 400 Balance 3398 / 3398 1797 / 1797 Microbiology Past 72 Hours 09/27/18 17:00 Bacteria Detection (PCR) - Final Blood Culture (Wb) - Anticubital Left Strep not Strep pneumo Blood Culture - Preliminary Laboratory Tests Past 24 Hrs 09/29/18 09/29/18 05:10 05:10 WBC 6.5 RBC 4.08 L Hgb 11.4 L Hct 36.6 L MCV 89.7 MCH 27.9 MCHC 31.1 L RDW 13.5 RDW Differential 43.8 Plt Count 220 MPV 10.3 Immature Gran % (Auto) 0.300 Neut % (Auto) 63.1 Lymph % (Auto) 22.6 [place] % (Auto) 11.2 H Eos % (Auto) 2.6 Baso % (Auto) 0.2 Absolute Neuts (auto) 4.1 Absolute Lymphs (auto) 1.47 Total Counted Not Reportable Sodium 144 Potassium 4.0 Chloride 111 H Carbon Dioxide 25.0 Anion Gap 8 BUN 4 L Creatinine 0.64 Estim Creat Clear Calc 33.21 Est GFR (MDRD) Af Amer 115 Est GFR (MDRD) Non-Af 95 BUN/Creatinine Ratio 6.3 L Glucose 78 Calcium 8.6 Medical Necessity - Tobacco Use Smoking Status: Never smoker Tobacco Use: Cigarettes Assessment/Plan All Active Problems Diverticulitis (Acute) 82-year-old female with diverticulitis 1. Patient is still having significant pain with palpation to the left lower quadrant and left upper quadrant. White count has returned to normal with no left shift. Continue clear liquids until patient's pain has resolved. I explained that it may be a few more days. Reinier Souza MD Pager: [facility] [address] [place] [address], [address] [place] [address] Office:
[2018-09-29] MEDS: CycloSPORINE Ophthalmic 1 DROP DROPERETTE 1 DRP OPHTHALMIC ×2 (08:07→20:13)
--- NOTE | 2018-09-29 10:27 | PCM.PN.HOSP ---
Patient Problems: Active and Suspected Problems Diverticulitis (Acute) Subjective: Patient seen and examined. She says abdominal pain is much better. She denies fever, chills, cough, chest pain, SOB. Diarrhea is getting better though she did have diarrhea overnight. Labs and vitals reviewed. Vitals/I&O's: Vital Signs Temp Pulse Resp BP Pulse Ox 98.4 F 82 16 124/57 H 100 09/29/18 08:35 09/29/18 08:35 09/29/18 08:35 09/29/18 08:35 09/29/18 08:35 Oxygen Delivery Method Room Air Weight: 106 lb 14.787 oz Body Mass Index (BMI) 21.6 Finger Stick Blood Glucose 139 Intake and Output for Last 24 Hours 09/27/18 09/28/18 09/29/18 23:59 23:59 23:59 Intake Total 3798 / 3798 1797 / 1797 Output Total 400 / 400 Balance 3398 / 3398 1797 / 1797 General: Alert, Oriented x3, Cooperative, No apparent distress HEENT: Atraumatic, PERRLA, EOMI, Normocephalic Oral: Moist Mucosa Neck: Supple, No JVD, Negative Carotid Bruits Lungs: Clear to auscultation, Normal air movement, No rhonchi, No wheeze, No rales Cardiovascular: Regular rate, Regular Rhythm, Normal S1, Normal S2, No murmurs Abdomen: Bowel Sounds Present, Soft, Non-Distended, - - Moderate epigastric and left lower quadrant tenderness, with no guarding or rebound tenderness. Extremities: No clubbing, No cyanosis, No edema, Capillary Refill Less than 3 Seconds Skin: No rashes, No breakdown Musculoskeletal: No Tenderness to Palpation of Joints or Extremities Lymphatic: No Cervical, Supraclavicular, or Inguinal Adenopathy Neurological: Cranial nerves II-XII grossly intact Psych/Mental Status: Normal Affect, Appropriate, Alert and oriented to time, place, person, mood and affect Microbiology Past 72 Hours 09/27/18 17:00 Blood Culture (Wb) - Anticubital Left Bacteria Detection (PCR) - Final Strep not Strep pneumo 09/27/18 17:00 Blood Culture (Wb) - Anticubital Left Blood Culture - Preliminary Laboratory Results 09/29/18 05:10: WBC 6.5, RBC 4.08 L, Hgb 11.4 L, Hct 36.6 L, MCV 89.7, MCH 27.9, MCHC 31.1 L, RDW 13.5, RDW Differential 43.8, Plt Count 220, MPV 10.3, Immature Gran % (Auto) 0.300, Neut % (Auto) 63.1, Lymph % (Auto) 22.6, [place] % (Auto) 11.2 H, Eos % (Auto) 2.6, Baso % (Auto) 0.2, Absolute Neuts (auto) 4.1, Absolute Lymphs (auto) 1.47, Total Counted Not Reportable 09/29/18 05:10: Sodium 144, Potassium 4.0, Chloride 111 H, Carbon Dioxide 25.0, Anion Gap 8, BUN 4 L, Creatinine 0.64, Estim Creat Clear Calc 33.21, Est GFR (MDRD) Af Amer 115, Est GFR (MDRD) Non-Af 95, BUN/Creatinine Ratio 6.3 L, Glucose 78, Calcium 8.6 Current Medications Acetaminophen (Tylenol) 325 - 650 mg PO Q4H PRN PRN PRN Reason: PAIN Last Admin: 09/28/18 18:52 Dose: 325 mg Artificial Tears (Tears Naturale, Artificial Tears) 1 - 2 drop EACH EYE Q2H PRN PRN PRN Reason: DRY EYES Last Admin: 09/28/18 06:13 Dose: 1 drop Aspirin (Ecotrin) 81 mg PO 1700 [facility] Last Admin: 09/28/18 18:00 Dose: 81 mg Atorvastatin Calcium (Lipitor) 5 mg PO QODAY@220 [facility] Last Admin: 09/28/18 21:39 Dose: 5 mg Clonazepam (Klonopin) 0.25 mg PO QHS [facility] Last Admin: 09/28/18 21:44 Dose: 0.25 mg Cyclosporine (Restasis Ophthalmic) 1 drop OPHTHALMIC 0800,1999 [facility] Last Admin: 09/29/18 08:07 Dose: 1 drop Enoxaparin Sodium (Lovenox) 30 mg SC DAILY@1000 [facility] Last Admin: 09/28/18 10:30 Dose: 30 mg Gabapentin (Neurontin) 300 mg PO BID@1600,1900 [facility] Last Admin: 09/28/18 18:52 Dose: 300 mg Hydroxychloroquine Sulfate (Plaquenil) 200 mg PO 1700 [facility] Last Admin: 09/28/18 17:59 Dose: 200 mg Pantoprazole Sodium 40 mg/ (Sodium Chloride) 110 mls @ 330 mls/hr IV Q24 [facility] Last Admin: 09/28/18 10:30 Dose: 330 mls/hr Piperacillin Sod/Tazobactam Sod (Zosyn) 3.375 gm in 50 mls @ 12.5 mls/hr IV Q8 [facility] Last Admin: 09/29/18 05:04 Dose: 12.5 mls/hr Potassium Chloride/Sodium Chloride (Kcl 20meq In 0.45% Ns 1000ml) 1,000 mls @ 100 mls/hr IV .Q10H [facility] Last Admin: 09/29/18 08:06 Dose: 100 mls/hr Melatonin (Melatonin) 3 mg PO QHS [facility] Last Admin: 09/28/18 21:39 Dose: 3 mg Morphine Sulfate () 1 - 2 mg IV Q4H PRN PRN PRN Reason: SEVERE PAIN (6-10/10) Non-Formulary Medication (Mineral Oil/Petrolatum,White [Systane Nighttime Eye Ointment]) 1 applicatio OPHTHALMIC QHS [facility] Last Admin: 09/28/18 21:41 Dose: 1 applicatio Non-Formulary Medication (Propylene Glycol/Peg 400) 1 - 2 drop OPHTHALMIC Q1H PRN PRN PRN Reason: DRY EYES Ondansetron HCl (Zofran) 4 mg IV Q6H PRN PRN PRN Reason: NAUSEA/VOMITING Oxycodone HCl (Oxyir) 2.5 mg PO 1030,1730 [facility] Pilocarpine HCl (Salagen) 5 mg PO TIDAC [facility] Last Admin: 09/29/18 06:16 Dose: 5 mg Pramipexole Dihydrochloride (Mirapex) 0.125 mg PO 1530,1800,2000,2200 [facility] Last Admin: 09/28/18 21:40 Dose: 0.1248 mg Sodium Chloride () 5 - 15 ml IV UD PRN PRN Reason: SALINE FLUSH Last Admin: 09/28/18 03:25 Dose: 10 ml Sucralfate (Carafate) 1 gm PO 1HR_ACHS [facility] Last Admin: 09/29/18 06:15 Dose: 1 gm Venlafaxine HCl (Effexor Xr) 150 mg PO DAILY [facility] Last Admin: 09/28/18 08:18 Dose: 150 mg Medical Necessity - Tobacco Use Smoking Status: Never smoker Tobacco Use: Cigarettes Assessment/Plan All Active Problems Diverticulitis (Acute) 1. Acute sigmoid diverticulitis with diverticular abscess. says abdominal pain is better, but she still has moderate epigastric and left lower quadrant tenderness with palpation. Diarrhea is also getting better. White cell count of 6.5. On IV Zosyn. Continue clear liquid diet for now. Also on IV pantoprazole and sulfate on account of epigastric pain. Discussed with general surgery; if pain persists, will consider sigmoidectomy. To have antibiotics for a few more days 2. Hyponatremia: resolved. Sodium is down to 144. 3. Hypokalemia: Resolved. 4. Sjogren's syndrome: On cyclosporine eyedrops, Plaquenil and pilocarpine 5. Ankylosing spondylitis: On gabapentin and Plaquenil. On Tylenol as needed IV morphine as needed. 6. Restless leg syndrome: On Mirapex and venlafaxine. 7. Anxiety and depression: On clonazepam, melatonin and venlafaxine. 8. 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 DVT prophylaxis: Lovenox Code Visit Inpatient E&M: 68940 [facility] Hosp L3
--- NOTE | 2018-09-29 10:31 | PN_ITS ---
Patient Problems: Active and Suspected Problems Diverticulitis (Acute) Subjective: Patient seen and examined. She says abdominal pain is much better. She denies fever, chills, cough, chest pain, SOB. Diarrhea is getting better though she did have diarrhea overnight. Labs and vitals reviewed. Vitals/I&O's: Vital Signs Temp Pulse Resp BP Pulse Ox 98.4 F 82 16 124/57 H 100 09/29/18 08:35 09/29/18 08:35 09/29/18 08:35 09/29/18 08:35 09/29/18 08:35 Oxygen Delivery Method Room Air Weight: 106 lb 14.787 oz Body Mass Index (BMI) 21.6 Finger Stick Blood Glucose 139 Intake and Output for Last 24 Hours 09/27/18 09/28/18 09/29/18 23:59 23:59 23:59 Intake Total 3798 / 3798 1797 / 1797 Output Total 400 / 400 Balance 3398 / 3398 1797 / 1797 General: Alert, Oriented x3, Cooperative, No apparent distress HEENT: Atraumatic, PERRLA, EOMI, Normocephalic Oral: Moist Mucosa Neck: Supple, No JVD, Negative Carotid Bruits Lungs: Clear to auscultation, Normal air movement, No rhonchi, No wheeze, No rales Cardiovascular: Regular rate, Regular Rhythm, Normal S1, Normal S2, No murmurs Abdomen: Bowel Sounds Present, Soft, Non-Distended, - - Moderate epigastric and left lower quadrant tenderness, with no guarding or rebound tenderness. Extremities: No clubbing, No cyanosis, No edema, Capillary Refill Less than 3 Seconds Skin: No rashes, No breakdown Musculoskeletal: No Tenderness to Palpation of Joints or Extremities Lymphatic: No Cervical, Supraclavicular, or Inguinal Adenopathy Neurological: Cranial nerves II-XII grossly intact Psych/Mental Status: Normal Affect, Appropriate, Alert and oriented to time, place, person, mood and affect Microbiology Past 72 Hours 09/27/18 17:00 Blood Culture (Wb) - Anticubital Left Bacteria Detection (PCR) - Final Strep not Strep pneumo 09/27/18 17:00 Blood Culture (Wb) - Anticubital Left Blood Culture - Preliminary Laboratory Results 09/29/18 05:10: WBC 6.5, RBC 4.08 L, Hgb 11.4 L, Hct 36.6 L, MCV 89.7, MCH 27.9, MCHC 31.1 L, RDW 13.5, RDW Differential 43.8, Plt Count 220, MPV 10.3, Immature Gran % (Auto) 0.300, Neut % (Auto) 63.1, Lymph % (Auto) 22.6, [place] % (Auto) 11.2 H, Eos % (Auto) 2.6, Baso % (Auto) 0.2, Absolute Neuts (auto) 4.1, Absolute Lymphs (auto) 1.47, Total Counted Not Reportable 09/29/18 05:10: Sodium 144, Potassium 4.0, Chloride 111 H, Carbon Dioxide 25.0, Anion Gap 8, BUN 4 L, Creatinine 0.64, Estim Creat Clear Calc 33.21, Est GFR (MDRD) Af Amer 115, Est GFR (MDRD) Non-Af 95, BUN/Creatinine Ratio 6.3 L, Glucose 78, Calcium 8.6 Current Medications Acetaminophen (Tylenol) 325 - 650 mg PO Q4H PRN PRN PRN Reason: PAIN Last Admin: 09/28/18 18:52 Dose: 325 mg Artificial Tears (Tears Naturale, Artificial Tears) 1 - 2 drop EACH EYE Q2H PRN PRN PRN Reason: DRY EYES Last Admin: 09/28/18 06:13 Dose: 1 drop Aspirin (Ecotrin) 81 mg PO 1700 [facility] Last Admin: 09/28/18 18:00 Dose: 81 mg Atorvastatin Calcium (Lipitor) 5 mg PO QODAY@220 [facility] Last Admin: 09/28/18 21:39 Dose: 5 mg Clonazepam (Klonopin) 0.25 mg PO QHS [facility] Last Admin: 09/28/18 21:44 Dose: 0.25 mg Cyclosporine (Restasis Ophthalmic) 1 drop OPHTHALMIC 0800,1999 [facility] Last Admin: 09/29/18 08:07 Dose: 1 drop Enoxaparin Sodium (Lovenox) 30 mg SC DAILY@1000 [facility] Last Admin: 09/28/18 10:30 Dose: 30 mg Gabapentin (Neurontin) 300 mg PO BID@1600,1900 [facility] Last Admin: 09/28/18 18:52 Dose: 300 mg Hydroxychloroquine Sulfate (Plaquenil) 200 mg PO 1700 [facility] Last Admin: 09/28/18 17:59 Dose: 200 mg Pantoprazole Sodium 40 mg/ (Sodium Chloride) 110 mls @ 330 mls/hr IV Q24 [facility] Last Admin: 09/28/18 10:30 Dose: 330 mls/hr Piperacillin Sod/Tazobactam Sod (Zosyn) 3.375 gm in 50 mls @ 12.5 mls/hr IV Q8 [facility] Last Admin: 09/29/18 05:04 Dose: 12.5 mls/hr Potassium Chloride/Sodium Chloride (Kcl 20meq In 0.45% Ns 1000ml) 1,000 mls @ 100 mls/hr IV .Q10H [facility] Last Admin: 09/29/18 08:06 Dose: 100 mls/hr Melatonin (Melatonin) 3 mg PO QHS [facility] Last Admin: 09/28/18 21:39 Dose: 3 mg Morphine Sulfate () 1 - 2 mg IV Q4H PRN PRN PRN Reason: SEVERE PAIN (6-10/10) Non-Formulary Medication (Mineral Oil/Petrolatum,White [Systane Nighttime Eye Ointment]) 1 applicatio OPHTHALMIC QHS [facility] Last Admin: 09/28/18 21:41 Dose: 1 applicatio Non-Formulary Medication (Propylene Glycol/Peg 400) 1 - 2 drop OPHTHALMIC Q1H PRN PRN PRN Reason: DRY EYES Ondansetron HCl (Zofran) 4 mg IV Q6H PRN PRN PRN Reason: NAUSEA/VOMITING Oxycodone HCl (Oxyir) 2.5 mg PO 1030,1730 [facility] Pilocarpine HCl (Salagen) 5 mg PO TIDAC [facility] Last Admin: 09/29/18 06:16 Dose: 5 mg Pramipexole Dihydrochloride (Mirapex) 0.125 mg PO 1530,1800,2000,2200 [facility] Last Admin: 09/28/18 21:40 Dose: 0.1248 mg Sodium Chloride () 5 - 15 ml IV UD PRN PRN Reason: SALINE FLUSH Last Admin: 09/28/18 03:25 Dose: 10 ml Sucralfate (Carafate) 1 gm PO 1HR_ACHS [facility] Last Admin: 09/29/18 06:15 Dose: 1 gm Venlafaxine HCl (Effexor Xr) 150 mg PO DAILY [facility] Last Admin: 09/28/18 08:18 Dose: 150 mg Medical Necessity - Tobacco Use Smoking Status: Never smoker Tobacco Use: Cigarettes Assessment/Plan All Active Problems Diverticulitis (Acute) 1. Acute sigmoid diverticulitis with diverticular abscess. * says abdominal pain is better, but she still has moderate epigastric and left lower quadrant tenderness with palpation. * Diarrhea is also getting better. * White cell count of 6.5. On IV Zosyn. * Continue clear liquid diet for now. * Also on IV pantoprazole and sulfate on account of epigastric pain. * Discussed with general surgery; if pain persists, will consider sigmoidectomy. To have antibiotics for a few more days * * 2. Hyponatremia: resolved. Sodium is down to 144. 3. Hypokalemia: Resolved. 4. Sjogren's syndrome: On cyclosporine eyedrops, Plaquenil and pilocarpine 5. Ankylosing spondylitis: On gabapentin and Plaquenil. On Tylenol as needed IV morphine as needed. 6. Restless leg syndrome: On Mirapex and venlafaxine. 7. Anxiety and depression: On clonazepam, melatonin and venlafaxine. 8. 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 DVT prophylaxis: Lovenox Code Visit Inpatient E&M: 02632 Subs Hosp L3
[2018-09-29] MEDS: Venlafaxine XR 150 MG Capsule PO (10:40)
[2018-09-29] MEDS: Enoxaparin 30 MG/0.3 ML Syringe SC (10:40)
[2018-09-29] MEDS: oxyCODONE 5 MG Tablet 2.5 MG PO ×2 (10:48→17:54)
[2018-09-29] MEDS: Acetaminophen 325 MG Tablet PO ×2 (10:56→17:55)
[2018-09-29] MEDS: Pramipexole Di-HCl 0.125 MG Tablet PO ×4 (15:33→22:43)
[2018-09-29] MEDS: Gabapentin 300 MG Capsule PO ×2 (15:34→18:45)
[2018-09-29] MEDS: Aspirin E.C. 81 MG Tablet PO (17:53)
[2018-09-29] MEDS: Hydroxychloroquine 200 MG Tablet PO (17:54)
[2018-09-29] MEDS: Saliva Substitute 237 ML BOTTLE 15 ML MM (20:13)
[2018-09-29] MEDS: clonazePAM 0.5 MG Tablet 0.25 MG PO (22:43)
[2018-09-29] MEDS: MELATONIN 3 MG TABLET PO (22:43)
[2018-09-30 04:10] VITALS: BP 111/60; PULSE 70; RESP 18; TEMP 36.7; O2SAT 97
[2018-09-30] MEDS: Acetaminophen 325 MG Tablet PO ×3 (04:23→17:28)
[2018-09-30] MEDS: Piperacil/Tazobactam 3.375 GM/50 ML ML IV ×3 (05:46→22:18)
[2018-09-30 06:22] LABS: Absolute Lymphocyte Count 1.58 X10^3/ul (0.83-4.51); Absolute Neutrophil Count 4.8 X10^3/uL (2.0-7.7); Basophil# 0.02 X10^3/uL; Basophil% 0.3 % (0-1); Eosinophil# 0.21 X10^3/uL; Eosinophils% 2.9 % (0-5); Hematocrit 39.3 % (37-47); Hemoglobin 12.7 g/dl (12.0-15.0); Lymphocyte # 1.58 X10^3/ul (4.0); Lymphocyte % 21.8 % (19-41); Mean Corp Hgb Conc 32.3 g/gl (32-36); Mean Corpuscular Hgb 28.4 pg (27.0-32.0); Mean Corpuscular Volume 87.9 fL (81-99); Mean Platelet Vol. 9.9 fl (6.2-12.0); Monocyte# 0.65 X10^3/uL; Neutrophil # 4.78 X10^3/uL (2.7-7.7); Neutrophil % 65.9 % (47-70); Platelet Count 273 K/mm3 (150-450); RBC Distribution Width CV 13.3 % (11.6-14.6); RBC Distribution Width SD 41.9 fl (35.1-43.9); Red Blood Count 4.47 M/mm3 (4.2-5.4); White Blood Count 7.3 K/mm3 (4.4-11.0)
[2018-09-30 06:28] LABS: POSITIVE COUNT NO; POSITIVE DIFFERENTIAL NO; POSITIVE MORPHOLOGY NO
[2018-09-30 06:39] LABS: Anion Gap 10 (5-15); BUN 2 mg/dL (7-18); BUN/Creat Ratio 2.8 RATIO (10-20); Chloride 107 mmol/L (98-107); Creatinine, Serum 0.72 mg/dL (0.55-1.02); EST Glomerular Filtration Rate 82 mL/min (>60); Est Glom Filt Rate - Afr Amer 99 mL/min (>60); Estimated Creatinine Clearance 33.21 ml/min; Glucose 78 mg/dL (74-106); Sodium Level 141 mmol/L (136-145)
[2018-09-30] MEDS: Sucralfate 1 GM Tablet PO ×4 (06:39→22:36)
[2018-09-30] MEDS: Pilocarpine HCl 5 MG Tablet PO ×3 (06:39→15:36)
[2018-09-30] MEDS: Saliva Substitute 237 ML BOTTLE 15 ML MM (06:40)
--- NOTE | 2018-09-30 07:58 | PN.SURG_ITS ---
Patient Problems: Active and Suspected Problems Diverticulitis (Acute) Subjective: The patient has had several bowel movements. She reports her pain is improved. - Physical Exam General: Alert, Oriented x3, Cooperative Neck: No JVD Lungs: Normal air movement Cardiovascular: Regular rate, Regular Rhythm Abdomen: Soft, Non-Distended, Tender - Tenderness to deep palpation in the left lower quadrant. Vital Signs Temp Pulse Resp BP Pulse Ox 98.1 F 70 18 111/60 97 09/30/18 04:10 09/30/18 04:10 09/30/18 04:10 09/30/18 04:10 09/30/18 04:10 Oxygen Delivery Method Room Air Weight: 106 lb 14.787 oz Body Mass Index (BMI) 21.6 Finger Stick Blood Glucose 139 Intake and Output for Last 24 Hours 09/28/18 09/29/18 09/30/18 23:59 23:59 23:59 Intake Total 3798 / 3798 3980 / 3980 2810 / 2810 Output Total 400 / 400 Balance 3398 / 3398 3980 / 3980 2810 / 2810 Microbiology Past 72 Hours 09/27/18 17:00 Bacteria Detection (PCR) - Final Blood Culture (Wb) - Anticubital Left Strep not Strep pneumo Blood Culture - Preliminary Alpha Hemolytic Streptococcus Laboratory Tests Past 24 Hrs 09/30/18 09/30/18 05:48 05:48 WBC 7.3 RBC 4.47 Hgb 12.7 Hct 39.3 MCV 87.9 MCH 28.4 MCHC 32.3 RDW 13.3 RDW Differential 41.9 Plt Count 273 MPV 9.9 Immature Gran % (Auto) 0.100 Neut % (Auto) 65.9 Lymph % (Auto) 21.8 [place] % (Auto) 9.0 Eos % (Auto) 2.9 Baso % (Auto) 0.3 Absolute Neuts (auto) 4.8 Absolute Lymphs (auto) 1.58 Total Counted Not Reportable Sodium 141 Potassium 4.0 Chloride 107 Carbon Dioxide 24.0 Anion Gap 10 BUN 2 L Creatinine 0.72 Estim Creat Clear Calc 33.21 Est GFR (MDRD) Af Amer 99 Est GFR (MDRD) Non-Af 82 BUN/Creatinine Ratio 2.8 L Glucose 78 Calcium 9.0 Medical Necessity - Tobacco Use Smoking Status: Never smoker Tobacco Use: Cigarettes Assessment/Plan All Active Problems Diverticulitis (Acute) 82-year-old female with diverticular abscess 1. I had to palpate much more deeply in the left lower quadrant to elicit pain this morning. This shows improvement. Patient's white count continues to be normal. I would advance her to a full liquid diet and anticipate continuing to advance. As long as she is tolerating regular diet and her pain is well controlled on oral medication she will likely be discharged on oral antibiotics for 2-week course and follow-up with me in the office next week and I will schedule her for repeat CT. 2. If advancing her diet makes her pain worse I would like her to stop and I will immediately repeat a CT. 3. Continue Carafate and PPI. Reinier Souza MD Pager: [facility] [address] [place] [address], [address] [place] [phone] Office:
[2018-09-30 08:07] VITALS: BP 142/69; PULSE 88; RESP 16; TEMP 37.1; O2SAT 100
[2018-09-30] MEDS: CycloSPORINE Ophthalmic 1 DROP DROPERETTE 1 DRP OPHTHALMIC ×2 (08:12→20:21)
[2018-09-30] MEDS: Venlafaxine XR 150 MG Capsule PO (08:13)
[2018-09-30] MEDS: Enoxaparin 30 MG/0.3 ML Syringe SC (08:14)
--- NOTE | 2018-09-30 10:05 | PCM.PN.HOSP ---
Patient Problems: Active and Suspected Problems Diverticulitis (Acute) Subjective: Patient seen and examined. She is abdominal pain is better. She denies any fever, any chills, any palpitations or dizziness, any diarrhea vomiting. Review of systems otherwise negative. Diarrhea is also improving. She was advanced to full liquid diet by general surgery today. Labs and vitals reviewed. Vitals/I&O's: Vital Signs Temp Pulse Resp BP Pulse Ox 98.7 F 88 16 142/69 H 100 09/30/18 08:07 09/30/18 08:07 09/30/18 08:07 09/30/18 08:07 09/30/18 08:07 Oxygen Delivery Method Room Air Weight: 106 lb 14.787 oz Body Mass Index (BMI) 21.6 Finger Stick Blood Glucose 139 Intake and Output for Last 24 Hours 09/28/18 09/29/18 09/30/18 23:59 23:59 23:59 Intake Total 3798 / 3798 3980 / 3980 2810 / 2810 Output Total 400 / 400 Balance 3398 / 3398 3980 / 3980 2810 / 2810 General: Alert, Oriented x3, Cooperative, No apparent distress HEENT: Atraumatic, PERRLA, EOMI, Normocephalic Oral: Moist Mucosa Neck: Supple, No JVD, Negative Carotid Bruits Lungs: Clear to auscultation, Normal air movement, No rhonchi, No wheeze, No rales Cardiovascular: Regular rate, Regular Rhythm, Normal S1, Normal S2, No murmurs Abdomen: Bowel Sounds Present, Soft, Non-Distended, - - Mild epigastric and left lower quadrant tenderness, with no guarding or rebound tenderness. Extremities: No clubbing, No cyanosis, No edema, Capillary Refill Less than 3 Seconds Skin: No rashes, No breakdown Musculoskeletal: No Tenderness to Palpation of Joints or Extremities Lymphatic: No Cervical, Supraclavicular, or Inguinal Adenopathy Neurological: Cranial nerves II-XII grossly intact Psych/Mental Status: Normal Affect, Appropriate, Alert and oriented to time, place, person, mood and affect Microbiology Past 72 Hours 09/27/18 16:15 Urine, Clean Catch Urine Culture - Final Mixed Gram Pos & Gram Neg Org 09/27/18 17:00 Blood Culture (Wb) - Anticubital Left Bacteria Detection (PCR) - Final Strep not Strep pneumo 09/27/18 17:00 Blood Culture (Wb) - Anticubital Left Blood Culture - Preliminary Alpha Hemolytic Streptococcus Gram Positive Cocci Laboratory Results 09/30/18 05:48: WBC 7.3, RBC 4.47, Hgb 12.7, Hct 39.3, MCV 87.9, MCH 28.4, MCHC 32.3, RDW 13.3, RDW Differential 41.9, Plt Count 273, MPV 9.9, Immature Gran % (Auto) 0.100, Neut % (Auto) 65.9, Lymph % (Auto) 21.8, [place] % (Auto) 9.0, Eos % (Auto) 2.9, Baso % (Auto) 0.3, Absolute Neuts (auto) 4.8, Absolute Lymphs (auto) 1.58, Total Counted Not Reportable 09/30/18 05:48: Sodium 141, Potassium 4.0, Chloride 107, Carbon Dioxide 24.0, Anion Gap 10, BUN 2 L, Creatinine 0.72, Estim Creat Clear Calc 33.21, Est GFR (MDRD) Af Amer 99, Est GFR (MDRD) Non-Af 82, BUN/Creatinine Ratio 2.8 L, Glucose 78, Calcium 9.0 Diagnostic Data Abdomen/Pelvis CT 09/27/18 15:23 IMPRESSION: Acute sigmoid diverticulitis compensated by formation of a small adjacent abscess with prominent inflammation of the bowel segment wall. 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 No apparent obstructive lesion. Electronically Signed: Charles Gordon MD at 16:46 EST Tel , Service support , Chest X-Ray 09/27/18 16:28 IMPRESSION: There are findings consistent with COPD. There is no evidence of acute chest disease. Electronically Signed: Zhao Lantigua MD at 16:46 EST , Service support , Current Medications Acetaminophen (Tylenol) 325 - 650 mg PO Q4H PRN PRN PRN Reason: PAIN Last Admin: 09/30/18 04:23 Dose: 650 mg Artificial Tears (Tears Naturale, Artificial Tears) 1 - 2 drop EACH EYE Q2H PRN PRN PRN Reason: DRY EYES Last Admin: 09/28/18 06:13 Dose: 1 drop Aspirin (Ecotrin) 81 mg PO 1700 [facility] Last Admin: 09/29/18 17:53 Dose: 81 mg Atorvastatin Calcium (Lipitor) 5 mg PO QODAY@2200 [facility] Last Admin: 09/28/18 21:39 Dose: 5 mg Clonazepam (Klonopin) 0.25 mg PO QHS [facility] Last Admin: 09/29/18 22:43 Dose: 0.25 mg Cyclosporine (Restasis Ophthalmic) 1 drop OPHTHALMIC 0800,1999 [facility] Last Admin: 09/30/18 08:12 Dose: 1 drop Enoxaparin Sodium (Lovenox) 30 mg SC DAILY@1000 [facility] Last Admin: 09/30/18 08:14 Dose: 30 mg Gabapentin (Neurontin) 300 mg PO BID@1600,1900 [facility] Last Admin: 09/29/18 18:45 Dose: 300 mg Hydroxychloroquine Sulfate (Plaquenil) 200 mg PO 1700 [facility] Last Admin: 09/29/18 17:54 Dose: 200 mg Pantoprazole Sodium 40 mg/ (Sodium Chloride) 110 mls @ 330 mls/hr IV Q24 [facility] Last Admin: 09/29/18 10:40 Dose: 330 mls/hr Piperacillin Sod/Tazobactam Sod (Zosyn) 3.375 gm in 50 mls @ 12.5 mls/hr IV Q8 [facility] Last Admin: 09/30/18 05:46 Dose: 12.5 mls/hr Potassium Chloride/Sodium Chloride (Kcl 20meq In 0.45% Ns 1000ml) 1,000 mls @ 100 mls/hr IV .Q10H [facility] Last Admin: 09/30/18 04:08 Dose: 100 mls/hr Melatonin (Melatonin) 3 mg PO QHS [facility] Last Admin: 09/29/18 22:43 Dose: 3 mg Morphine Sulfate () 1 - 2 mg IV Q4H PRN PRN PRN Reason: SEVERE PAIN (6-10/10) Non-Formulary Medication (Mineral Oil/Petrolatum,White [Systane Nighttime Eye Ointment]) 1 applicatio OPHTHALMIC QHS [facility] Last Admin: 09/29/18 22:44 Dose: 1 applicatio Non-Formulary Medication (Propylene Glycol/Peg 400) 1 - 2 drop OPHTHALMIC Q1H PRN PRN PRN Reason: DRY EYES Ondansetron HCl (Zofran) 4 mg IV Q6H PRN PRN PRN Reason: NAUSEA/VOMITING Oxycodone HCl (Oxyir) 2.5 mg PO 1030,1730 [facility] Last Admin: 09/29/18 17:54 Dose: 2.5 mg Pilocarpine HCl (Salagen) 5 mg PO TIDAC [facility] Last Admin: 09/30/18 06:39 Dose: 5 mg Pramipexole Dihydrochloride (Mirapex) 0.125 mg PO 1530,1800,2000,2200 [facility] Last Admin: 09/29/18 22:43 Dose: 0.1248 mg Sodium Chloride () 5 - 15 ml IV UD PRN PRN Reason: SALINE FLUSH Last Admin: 09/28/18 03:25 Dose: 10 ml Sucralfate (Carafate) 1 gm PO 1HR_ACHS [facility] Last Admin: 09/30/18 06:39 Dose: 1 gm Venlafaxine HCl (Effexor Xr) 150 mg PO DAILY [facility] Last Admin: 09/30/18 08:13 Dose: 150 mg Medical Necessity - Tobacco Use Smoking Status: Never smoker Tobacco Use: Cigarettes Assessment/Plan All Active Problems Diverticulitis (Acute) 1. Acute sigmoid diverticulitis with diverticular abscess. abdominal pain improved. Feels much better. diarrhea is also improving still has no leucocytosis Diet advanced to full liquid diet today. Continue IV Zosyn. Blood cultures alphahemolytic Streptococcus. Urine cultured mixed gram-positive and gram-negative organisms. on IV pantoprazole and PO sucralfate. says abdominal pain is better, but she still has moderate epigastric and left lower quadrant tenderness with palpation. Diarrhea is also getting better. White cell count of 6.5. On IV Zosyn. Continue clear liquid diet for now. Also on IV pantoprazole and sulfate on account of epigastric pain. If she tolerates oral diet, will switch to PO pantoprazole 2. Hyponatremia: resolved. 3. Hypokalemia: Resolved. 4. Sjogren's syndrome: On cyclosporine eyedrops, Plaquenil and pilocarpine 5. Ankylosing spondylitis: On gabapentin and Plaquenil. On Tylenol as needed IV morphine as needed. 6. Restless leg syndrome: On Mirapex and venlafaxine. 7. Anxiety and depression: On clonazepam, melatonin and venlafaxine. 8. 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 DVT prophylaxis: Lovenox Code Visit Inpatient E&M: 90956 Subs Hosp L3
--- NOTE | 2018-09-30 10:12 | PN_ITS ---
Patient Problems: Active and Suspected Problems Diverticulitis (Acute) Subjective: Patient seen and examined. She is abdominal pain is better. She denies any fever, any chills, any palpitations or dizziness, any diarrhea vomiting. Review of systems otherwise negative. Diarrhea is also improving. She was advanced to full liquid diet by general surgery today. Labs and vitals reviewed. Vitals/I&O's: Vital Signs Temp Pulse Resp BP Pulse Ox 98.7 F 88 16 142/69 H 100 09/30/18 08:07 09/30/18 08:07 09/30/18 08:07 09/30/18 08:07 09/30/18 08:07 Oxygen Delivery Method Room Air Weight: 106 lb 14.787 oz Body Mass Index (BMI) 21.6 Finger Stick Blood Glucose 139 Intake and Output for Last 24 Hours 09/28/18 09/29/18 09/30/18 23:59 23:59 23:59 Intake Total 3798 / 3798 3980 / 3980 2810 / 2810 Output Total 400 / 400 Balance 3398 / 3398 3980 / 3980 2810 / 2810 General: Alert, Oriented x3, Cooperative, No apparent distress HEENT: Atraumatic, PERRLA, EOMI, Normocephalic Oral: Moist Mucosa Neck: Supple, No JVD, Negative Carotid Bruits Lungs: Clear to auscultation, Normal air movement, No rhonchi, No wheeze, No rales Cardiovascular: Regular rate, Regular Rhythm, Normal S1, Normal S2, No murmurs Abdomen: Bowel Sounds Present, Soft, Non-Distended, - - Mild epigastric and left lower quadrant tenderness, with no guarding or rebound tenderness. Extremities: No clubbing, No cyanosis, No edema, Capillary Refill Less than 3 Seconds Skin: No rashes, No breakdown Musculoskeletal: No Tenderness to Palpation of Joints or Extremities Lymphatic: No Cervical, Supraclavicular, or Inguinal Adenopathy Neurological: Cranial nerves II-XII grossly intact Psych/Mental Status: Normal Affect, Appropriate, Alert and oriented to time, p lace, person, mood and affect Microbiology Past 72 Hours 09/27/18 16:15 Urine, Clean Catch Urine Culture - Final Mixed Gram Pos & Gram Neg Org 09/27/18 17:00 Blood Culture (Wb) - Anticubital Left Bacteria Detection (PCR) - Final Strep not Strep pneumo 09/27/18 17:00 Blood Culture (Wb) - Anticubital Left Blood Culture - Preliminary Alpha Hemolytic Streptococcus Gram Positive Cocci Laboratory Results 09/30/18 05:48: WBC 7.3, RBC 4.47, Hgb 12.7, Hct 39.3, MCV 87.9, MCH 28.4, MCHC 32.3, RDW 13.3, RDW Differential 41.9, Plt Count 273, MPV 9.9, Immature Gran % (Auto) 0.100, Neut % (Auto) 65.9, Lymph % (Auto) 21.8, [place] % (Auto) 9.0, Eos % (Auto) 2.9, Baso % (Auto) 0.3, Absolute Neuts (auto) 4.8, Absolute Lymphs (auto) 1.58, Total Counted Not Reportable 09/30/18 05:48: Sodium 141, Potassium 4.0, Chloride 107, Carbon Dioxide 24.0, Anion Gap 10, BUN 2 L, Creatinine 0.72, Estim Creat Clear Calc 33.21, Est GFR (MDRD) Af Amer 99, Est GFR (MDRD) Non-Af 82, BUN/Creatinine Ratio 2.8 L, Glucose 78, Calcium 9.0 Diagnostic Data Abdomen/Pelvis CT 09/27/18 15:23 IMPRESSION: Acute sigmoid diverticulitis compensated by formation of a small adjacent abscess with prominent inflammation of the bowel segment wall. 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 No apparent obstructive lesion. Electronically Signed: Charles Gordon MD at 16:46 EST Tel , Service support , Chest X-Ray 09/27/18 16:28 IMPRESSION: There are findings consistent with COPD. There is no evidence of acute chest disease. Electronically Signed: Zhao Lantigua MD at 16:46 EST , Service support , Current Medications Acetaminophen (Tylenol) 325 - 650 mg PO Q4H PRN PRN PRN Reason: PAIN Last Admin: 09/30/18 04:23 Dose: 650 mg Artificial Tears (Tears Naturale, Artificial Tears) 1 - 2 drop EACH EYE Q2H PRN PRN PRN Reason: DRY EYES Last Admin: 09/28/18 06:13 Dose: 1 drop Aspirin (Ecotrin) 81 mg PO 1700 [facility] Last Admin: 09/29/18 17:53 Dose: 81 mg Atorvastatin Calcium (Lipitor) 5 mg PO QODAY@2200 [facility] Last Admin: 09/28/18 21:39 Dose: 5 mg Clonazepam (Klonopin) 0.25 mg PO QHS [facility] Last Admin: 09/29/18 22:43 Dose: 0.25 mg Cyclosporine (Restasis Ophthalmic) 1 drop OPHTHALMIC 08,1999 [facility] Last Admin: 09/30/18 08:12 Dose: 1 drop Enoxaparin Sodium (Lovenox) 30 mg SC DAILY@1000 [facility] Last Admin: 09/30/18 08:14 Dose: 30 mg Gabapentin (Neurontin) 300 mg PO BID@1600,1900 [facility] Last Admin: 09/29/18 18:45 Dose: 300 mg Hydroxychloroquine Sulfate (Plaquenil) 200 mg PO 1700 [facility] Last Admin: 09/29/18 17:54 Dose: 200 mg Pantoprazole Sodium 40 mg/ (Sodium Chloride) 110 mls @ 330 mls/hr IV Q24 [facility] Last Admin: 09/29/18 10:40 Dose: 330 mls/hr Piperacillin Sod/Tazobactam Sod (Zosyn) 3.375 gm in 50 mls @ 12.5 mls/hr IV Q8 [facility] Last Admin: 09/30/18 05:46 Dose: 12.5 mls/hr Potassium Chloride/Sodium Chloride (Kcl 20meq In 0.45% Ns 1000ml) 1,000 mls @ 100 mls/hr IV .Q10H [facility] Last Admin: 09/30/18 04:08 Dose: 100 mls/hr Melatonin (Melatonin) 3 mg PO QHS [facility] Last Admin: 09/29/18 22:43 Dose: 3 mg Morphine Sulfate () 1 - 2 mg IV Q4H PRN PRN PRN Reason: SEVERE PAIN (6-10/10) Non-Formulary Medication (Mineral Oil/Petrolatum,White [Systane Nighttime Eye Ointment]) [facility] Last Admin: 09/29/18 22:44 Dose: 1 applicatio Non-Formulary Medication (Propylene Glycol/Peg 400) 1 - 2 drop OPHTHALMIC Q1H PRN PRN PRN Reason: DRY EYES Ondansetron HCl (Zofran) 4 mg IV Q6H PRN PRN PRN Reason: NAUSEA/VOMITING Oxycodone HCl (Oxyir) 2.5 mg PO 1030,1730 [facility] Last Admin: 09/29/18 17:54 Dose: 2.5 mg Pilocarpine HCl (Salagen) 5 mg PO TIDAC [facility] Last Admin: 09/30/18 06:39 Dose: 5 mg Pramipexole Dihydrochloride (Mirapex) 0.125 mg PO 1530,1800,2000,2200 [facility] Last Admin: 09/29/18 22:43 Dose: 0.1248 mg Sodium Chloride () 5 - 15 ml IV UD PRN PRN Reason: SALINE FLUSH Last Admin: 09/28/18 03:25 Dose: 10 ml Sucralfate (Carafate) 1 gm PO 1HR_ACHS [facility] Last Admin: 09/30/18 06:39 Dose: 1 gm Venlafaxine HCl (Effexor Xr) 150 mg PO DAILY [facility] Last Admin: 09/30/18 08:13 Dose: 150 mg Medical Necessity - Tobacco Use Smoking Status: Never smoker Tobacco Use: Cigarettes Assessment/Plan All Active Problems Diverticulitis (Acute) 1. Acute sigmoid diverticulitis with diverticular abscess. * abdominal pain improved. Feels much better. diarrhea is also improving * still has no leucocytosis * Diet advanced to full liquid diet today. * Continue IV Zosyn. * Blood cultures alphahemolytic Streptococcus. Urine cultured mixed gram- positive and gram-negative organisms. * on IV pantoprazole and PO sucralfate. * says abdominal pain is better, but she still has moderate epigastric and left lower quadrant tenderness with palpation. * Diarrhea is also getting better. * White cell count of 6.5. On IV Zosyn. * Continue clear liquid diet for now. * Also on IV pantoprazole and sulfate on account of epigastric pain. If she tolerates oral diet, will switch to PO pantoprazole * 2. Hyponatremia: resolved. 3. Hypokalemia: Resolved. 4. Sjogren's syndrome: On cyclosporine eyedrops, Plaquenil and pilocarpine 5. Ankylosing spondylitis: On gabapentin and Plaquenil. On Tylenol as needed IV morphine as needed. 6. Restless leg syndrome: On Mirapex and venlafaxine. 7. Anxiety and depression: On clonazepam, melatonin and venlafaxine. 8. 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 DVT prophylaxis: Lovenox Code Visit Inpatient E&M: 77714 Subs Hosp L3
[2018-09-30] MEDS: oxyCODONE 5 MG Tablet 2.5 MG PO ×2 (10:22→17:28)
[2018-09-30 11:02] VITALS: BP 139/78; PULSE 81; RESP 16; TEMP 36.9; O2SAT 98
--- NOTE | 2018-09-30 12:09 | NURSING ---
PT IN ER. PT SENT TO ER WITH NURSING STAFF TO CHECK ON HER .
[2018-09-30] MEDS: Pramipexole Di-HCl 0.125 MG Tablet PO ×4 (15:35→22:37)
[2018-09-30] MEDS: Gabapentin 300 MG Capsule PO ×2 (15:36→18:59)
[2018-09-30 15:41] VITALS: BP 134/79; PULSE 86; RESP 16; TEMP 36.8; O2SAT 100
[2018-09-30] MEDS: Aspirin E.C. 81 MG Tablet PO (16:59)
[2018-09-30] MEDS: Hydroxychloroquine 200 MG Tablet PO (16:59)
[2018-09-30 20:20] VITALS: BP 145/85; PULSE 81; RESP 16; TEMP 36.7; O2SAT 97
[2018-09-30] MEDS: 0.9% NaCl Peripheral Flush Adult/Peds IV (22:23)
[2018-09-30] MEDS: clonazePAM 0.5 MG Tablet 0.25 MG PO (22:33)
[2018-09-30] MEDS: Atorvastatin Calcium 10 MG Tablet 5 MG PO (22:35)
[2018-09-30] MEDS: MELATONIN 3 MG TABLET PO (22:36)
[2018-10-01 02:25] VITALS: BP 112/43; PULSE 82; RESP 18; TEMP 36.8; O2SAT 97
[2018-10-01] MEDS: Morphine 2 MG/ML Syringe IV (02:35)
[2018-10-01] MEDS: 0.9% NaCl Peripheral Flush Adult/Peds IV ×2 (02:38→06:33)
[2018-10-01 06:31] LABS: Absolute Lymphocyte Count 1.01 X10^3/ul (0.83-4.51); Absolute Neutrophil Count 6.7 X10^3/uL (2.0-7.7); Basophil# 0.02 X10^3/uL; Basophil% 0.2 % (0-1); Eosinophil# 0.18 X10^3/uL; Eosinophils% 2.1 % (0-5); Hematocrit 36.9 % (37-47); Hemoglobin 11.8 g/dl (12.0-15.0); Lymphocyte # 1.01 X10^3/ul (4.0); Lymphocyte % 11.6 % (19-41); Mean Corpuscular Hgb 27.8 pg (27.0-32.0); Mean Corpuscular Volume 86.8 fL (81-99); Mean Platelet Vol. 9.9 fl (6.2-12.0); Monocyte# 0.77 X10^3/uL; Monocyte% 8.8 % (0-10); Neutrophil # 6.74 X10^3/uL (2.7-7.7); Neutrophil % 77.2 % (47-70); Platelet Count 277 K/mm3 (150-450); RBC Distribution Width CV 13.1 % (11.6-14.6); RBC Distribution Width SD 41.2 fl (35.1-43.9); Red Blood Count 4.25 M/mm3 (4.2-5.4); White Blood Count 8.7 K/mm3 (4.4-11.0)
[2018-10-01] MEDS: Sucralfate 1 GM Tablet PO ×2 (06:33→10:33)
[2018-10-01] MEDS: Piperacil/Tazobactam 3.375 GM/50 ML ML IV (06:33)
[2018-10-01 06:34] LABS: POSITIVE COUNT NO; POSITIVE DIFFERENTIAL NO; POSITIVE MORPHOLOGY NO
[2018-10-01] MEDS: Pilocarpine HCl 5 MG Tablet PO ×2 (06:35→10:34)
[2018-10-01 06:51] LABS: Anion Gap 9 (5-15); BUN 4 mg/dL (7-18); BUN/Creat Ratio 5.9 RATIO (10-20); Calcium,Total 8.9 mg/dL (8.5-10.1); Chloride 109 mmol/L (98-107); Creatinine, Serum 0.67 mg/dL (0.55-1.02); EST Glomerular Filtration Rate 89 mL/min (>60); Est Glom Filt Rate - Afr Amer 108 mL/min (>60); Estimated Creatinine Clearance 33.21 ml/min; Glucose 78 mg/dL (74-106); Potassium 3.5 mmol/L (3.5-5.1); Sodium Level 144 mmol/L (136-145)
--- NOTE | 2018-10-01 07:02 | PCM.PN.SRG ---
Patient Problems: Active and Suspected Problems Diverticulitis (Acute) Subjective: Patient is very concerned about her restless leg syndrome. She says she was tolerating a transitional diet with no increased pain. She is her pain is much better today. She says she is having dark stools with coffee-ground consistency. - Physical Exam General: Alert, Oriented x3, Cooperative Lungs: Normal air movement Abdomen: Soft, Non Tender, Non-Distended Vital Signs Temp Pulse Resp BP Pulse Ox 98.2 F 82 18 112/43 L 97 10/01/18 02:25 10/01/18 02:25 10/01/18 02:25 10/01/18 02:25 10/01/18 02:25 Oxygen Delivery Method Room Air Weight: 106 lb 14.787 oz Body Mass Index (BMI) 21.6 Finger Stick Blood Glucose 139 Intake and Output for Last 24 Hours 09/29/18 09/30/18 10/01/18 23:59 23:59 23:59 Intake Total 3980 / 3980 3560 / 3560 834 / 834 Balance 3980 / 3980 3560 / 3560 834 / 834 Microbiology Past 72 Hours 09/27/18 17:00 Bacteria Detection (PCR) - Final Blood Culture (Wb) - Anticubital Left Strep not Strep pneumo Blood Culture - Preliminary Alpha Hemolytic Streptococcus Gram Positive Cocci 09/27/18 17:00 Blood Culture - Preliminary Blood Culture (Wb) - Anticubital Right No growth in 48 hours. 09/27/18 16:15 Urine Culture - Final Urine, Clean Catch Mixed Gram Pos & Gram Neg Org Laboratory Tests Past 24 Hrs 10/01/18 10/01/18 05:18 05:18 WBC 8.7 RBC 4.25 Hgb 11.8 L Hct 36.9 L MCV 86.8 MCH 27.8 MCHC 32.0 RDW 13.1 RDW Differential 41.2 Plt Count 277 MPV 9.9 Immature Gran % (Auto) 0.100 Neut % (Auto) 77.2 H Lymph % (Auto) 11.6 L [place] % (Auto) 8.8 Eos % (Auto) 2.1 Baso % (Auto) 0.2 Absolute Neuts (auto) 6.7 Absolute Lymphs (auto) 1.01 Total Counted Not Reportable Sodium 144 Potassium 3.5 Chloride 109 H Carbon Dioxide 26.0 Anion Gap 9 BUN 4 L Creatinine 0.67 Estim Creat Clear Calc 33.21 Est GFR (MDRD) Af Amer 108 Est GFR (MDRD) Non-Af 89 BUN/Creatinine Ratio 5.9 L Glucose 78 Calcium 8.9 Medical Necessity - Tobacco Use Smoking Status: Never smoker Tobacco Use: Cigarettes Assessment/Plan All Active Problems Diverticulitis (Acute) 82-year-old female with diverticulitis and abscess 1. Patient is doing much better today and tolerating a transitional diet with no abdominal pain. Even with deep palpation she is mildly tender. I will change her Zosyn to Augmentin and I would like her to have a dose today in the hospital as she has a penicillin intolerance. As long as she tolerates this well she can be discharged home on a low fiber soft diet. 2. Patient is very concerned that the Carafate is causing her restless leg syndrome to be worse. I advised her that with the darkness of her stools it is possible that she is having bleeding gastritis and I do recommend continuing the PPI and Carafate at home. Her epigastric pain is improved with diet and Carafate and I believe that her gastritis is improving. 3. I will have my office schedule her for a CAT scan as an outpatient. I would like her to follow-up with me in 1-2 weeks. Reinier Souza MD Pager: [facility] [address] [place] [address], [address] [place] [address] Office:
[2018-10-01 08:26] VITALS: BP 115/58; PULSE 100; PULSE 79; RESP 20; TEMP 37.2; O2SAT 100
[2018-10-01] MEDS: Acetaminophen 325 MG Tablet PO (08:41)
[2018-10-01] MEDS: Enoxaparin 30 MG/0.3 ML Syringe SC (08:43)
[2018-10-01] MEDS: Venlafaxine XR 150 MG Capsule PO (08:43)
[2018-10-01] MEDS: CycloSPORINE Ophthalmic 1 DROP DROPERETTE 1 DRP OPHTHALMIC (08:43)
[2018-10-01] MEDS: oxyCODONE 5 MG Tablet 2.5 MG PO (09:51)
[2018-10-01] MEDS: Amox/Clavulanate 875 MG Tablet PO (09:56)
[2018-10-01] MEDS: BENZOCAINE/MENTHOL 1 LOZENGE MUCOUS MEM (10:33)
[2018-10-01] MEDS: Saliva Substitute 237 ML BOTTLE 15 ML MM (10:36)
--- NOTE | 2018-10-01 11:18 | DS.PCM_ITS ---
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 History of compression fracture of spine (Chronic) L1, january 29 Premature atrial contractions (Chronic) Mixed anxiety and depressive disorder (Chronic) Hospital Course and Treatment Imaging Results: Diagnostic Data Abdomen/Pelvis CT 09/27/18 15:23 IMPRESSION: Acute sigmoid diverticulitis compensated by formation of a small adjacent abscess with prominent inflammation of the bowel segment wall. 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 No apparent obstructive lesion. Electronically Signed: Charles Gordon MD at 16:46 EST Tel , Service support , Chest X-Ray 09/27/18 16:28 IMPRESSION: There are findings consistent with COPD. There is no evidence of acute chest disease. Electronically Signed: Zhao Lantigua MD at 16:46 EST , Service support , general surgery- Dr Souza Operations: None Procedures: None Summary of Care Provided: The patient is a 82 year old F with a PMH of Sjogrens syndrome, osteoporosis, OA, restless leg syndrome, ankylosing spondylitis, history of chronic L1 compression fracture and anxiety and depression. She was admitted on 09/27/2018 with a complaint of abdominal pain of one week's duration. Pain was mainly in the lower left quadrant with assisted nausea but no vomiting. Pain also radiated to the epigastric region. She said pain is been present for about a month but worsened over the past 6 days prior to admission. She had had colonoscopy in the recent past and was found to have extensive diverticulosis. CBC showed leukocytosis and potassium of 3.[address] of the abdomen and pelvis with contrast showed acute sigmoid diverticulitis with small adjacent abscess. She was admitted and managed for acute sigmoid diverticulitis with small abscess. pantoprazole and sucralfate were added on o/a of epigastric pain which was suspicious for gastritis. She was initially started on IV ciprofloxacin and metronidazole. General surgery was consulted and antibiotic coverage was broadened to IV Zosyn. Abdominal pain still persisted but improved with time. Leukocytosis resolved. Blood culture grew alpha hemolytic strep (Strep mitis/oralis and Strep salivarius. Urine cultured mixed gram positive and gram negative organisms. Abdominal pain improved significantly and she was discharged home on 10/01/18. She is to follow up with her PCP, and general surgery. She is to have a repeat CT of the abdomen and pelvis which will be ordered by general surgery. She was discharged with a script for PO augmentin for 14 days, and PO pantoprazole as well as Sucralfate. Patient seen and examined prior to discharge. She complained of restless legs and was worried that sucralfate may have caused exacerbation of her restless leg syndrome. Literature reviewed and there is no evidence of sucralfate causing restless leg syndrome or exacerbation of it and patient was informed about this. Abdominal pain is improved. She denied any palpitations dizziness or lightheadedness. On examination Vital Signs Height 4 ft 11 in Weight: 106 lb 14.787 oz Weight in Pounds 106.9 lbs Pulse Ox 98 Temperature 98.1 F Pulse Rate 83 Respiratory Rate 20 Blood Pressure 105/54 Blood Pressure Position Semi-Fowlers [] General: Alert, Oriented x3, Cooperative, No apparent distress HEENT: Atraumatic, PERRLA, EOMI, Normocephalic Oral: Moist Mucosa Neck: Supple, No JVD, Negative Carotid Bruits Lungs: Clear to auscultation, Normal air movement, No rhonchi, No wheeze, No rales Cardiovascular: Regular rate, Regular Rhythm, Normal S1, Normal S2, No murmurs Abdomen: Bowel Sounds Present, Soft, Non-Distended, - - Minimal epigastric and left lower quadrant tenderness, with no guarding or rebound tenderness. Extremities: No clubbing, No cyanosis, No edema, Capillary Refill Less than 3 Seconds Skin: No rashes, No breakdown Musculoskeletal: No Tenderness to Palpation of Joints or Extremities Lymphatic: No Cervical, Supraclavicular, or Inguinal Adenopathy Neurological: Cranial nerves II-XII grossly intact Psych/Mental Status: Normal Affect, Appropriate, Alert and oriented to time, place, person, mood and affect Plan as described above. Patient Problems: Active and Suspected Problems Diverticulitis (Acute) - Physical Exam Vital Signs Temp Pulse Resp BP Pulse Ox 99.0 F 100 20 H 115/58 L 100 10/01/18 08:26 10/01/18 08:26 10/01/18 08:26 10/01/18 08:26 10/01/18 08:26 Oxygen Delivery Method Room Air Weight: 106 lb 14.787 oz Body Mass Index (BMI) 21.6 Finger Stick Blood Glucose 139 Intake and Output for Last 24 Hours 09/29/18 09/30/18 10/01/18 23:59 23:59 23:59 Intake Total 3980 / 3980 3560 / 3560 834 / 834 Balance 3980 / 3980 3560 / 3560 834 / 834 Microbiology Past 72 Hours 09/27/18 17:00 Bacteria Detection (PCR) - Final Blood Culture (Wb) - Anticubital Left Strep not Strep pneumo Blood Culture - Preliminary Streptococcus mitis/ oralis Strep salivarius sp salivarius 09/27/18 17:00 Blood Culture - Preliminary Blood Culture (Wb) - Anticubital Right No growth in 48 hours. 09/27/18 16:15 Urine Culture - Final Urine, Clean Catch Mixed Gram Pos & Gram Neg Org Laboratory Tests Past 24 Hrs 10/01/18 10/01/18 05:18 05:18 WBC 8.7 RBC 4.25 Hgb 11.8 L Hct 36.9 L MCV 86.8 MCH 27.8 MCHC 32.0 RDW 13.1 RDW Differential 41.2 Plt Count 277 MPV 9.9 Immature Gran % (Auto) 0.100 Neut % (Auto) 77.2 H Lymph % (Auto) 11.6 L [place] % (Auto) 8.8 Eos % (Auto) 2.1 Baso % (Auto) 0.2 Absolute Neuts (auto) 6.7 Absolute Lymphs (auto) 1.01 Total Counted Not Reportable Sodium 144 Potassium 3.5 Chloride 109 H Carbon Dioxide 26.0 Anion Gap 9 BUN 4 L Creatinine 0.67 Estim Creat Clear Calc 33.21 Est GFR (MDRD) Af Amer 108 Est GFR (MDRD) Non-Af 89 BUN/Creatinine Ratio 5.9 L Glucose 78 Calcium 8.9 Discharge Diet: - - high fiber, soft diet Discharge Activity: Return to Normal Activity Weight Bearing Status: Weight bearing as tolerated Home Medications: Medications to take at Discharge Acetaminophen [Tylenol] 500 mg PO Q6H PRN PRN 03/29/16 Aspirin [Adult Low Dose Aspirin EC] 81 mg PO DINNER 03/29/16 Atorvastatin Calcium [Lipitor] 5 mg PO QODAY 03/29/16 Calcium Citrate/Vitamin D3 [Calcium Citrate - Vit D Tablet] 2 tab PO BID 03/29/16 CycloSPORINE Ophthalmic [Restasis Ophthalmic] 1 drop EACH EYE BID 03/29/16 Docusate Sodium [Colace] 100 mg PO TID PRN PRN 03/29/16 Ergocalciferol [Vitamin D] 50,000 unit PO QMONTH 03/29/16 Flaxseed Oil [[place]-3 Flaxseed Oil] 1,000 mg PO DAILY 03/29/16 Hydroxychloroquine [Plaquenil] 200 mg PO DAILYCM 03/29/16 Melatonin 3 mg PO QHS 03/29/16 Omeprazole [Prilosec] 20 mg PO BREAKFAST 03/29/16 Pilocarpine HCl [Salagen] 5 mg PO TID 03/29/16 Polyethylene Glycol 3350 [Miralax] 17 gm PO DAILY PRN PRN 03/29/16 Pramipexole Di-HCl [Mirapex] 0.125 mg PO 1530,1800,2000,2200 03/29/16 Saliva Substitute Comb No.10 [Neutrasal] 1 each MM PRN PRN 03/29/16 Oxycodone HCl/Acetaminophen [Percocet 5-325] 0.5 tablet PO BID 09/19/16 Clonazepam 0.25 mg PO QHS 09/27/18 Fluticasone Propionate 2 sprays NASAL DAILY 09/27/18 Gabapentin [Neurontin] 300 mg PO BID 09/27/18 Magnesium Oxide [Magnesium] 250 mg PO QHS 09/27/18 Mineral Oil/Petrolatum,White [Systane Nighttime Eye Ointment] 3.5 gm OP DAILY 09/27/18 Multivitamin [Multiple Vitamins] 1 tab PO DAILY 09/27/18 Propylene Glycol/Peg 400 [Systane Ultra 0.4-0.3% Eye Drp] 30 ml OP 4X/DAY 09/27/18 Tumeric 500 mg PO DAILY 09/27/18 Venlafaxine HCl [Venlafaxine HCl ER] 150 mg PO DAILY 09/27/18 Vitamin B Complex [B Complex] 1 tab PO DAILY 09/27/18 Wheat Dextrin [Benefiber] 5 ml PO DAILY 09/27/18 Amoxicillin/Potassium Clav [Amox Tr-K Clv 875-125 mg Tab] 1 each PO BID #28 tablet 10/01/18 Pantoprazole Sodium 40 mg PO DAILY #30 tablet. 10/01/18 Sucralfate [Carafate] 1 gm PO 1HR_ACHS #30 tablet 10/01/18 Following Prescrptions Were Given to Patient: Pantoprazole Sodium 40 mg PO DAILY #30 tablet. Sucralfate [Carafate] 1 gm PO 1HR_ACHS #30 tablet Amoxicillin/Potassium Clav [Amox Tr-K Clv 875-125 mg Tab] 1 each PO BID #28 tablet Primary Care Physician: Leatha Kincaid MD [Primary Care Provider] - Please Follow Up With: Reinier Souza MD When: Please Follow Up With: Reinier Souza MD When: thursday Patient Instructions: Understanding Diverticulosis and Diverticulitis, Discharge Instructions for Diverticulitis Disposition: Home Minutes spent on discharge:: 35 Patient Condition:: Stable Medical Necessity - Tobacco Use Smoking Status: Never smoker Tobacco Use: Cigarettes Meaningful Use Info Meaningful Use Diagnoses (Choose all that apply): None applicable Code Visit Inpatient E&M: 94645 Disch Hosp
--- NOTE | 2018-10-01 12:03 | DCINST_ITS ---
- Discharge Diagnoses Current Active Problems: Current Active and Chronic Problems Diverticulitis (Acute) You will use the following diet at home:: Other - low fibre soft diet Your food should be the consistency of: Regular Your liquids should be the consistency of: Regular/Thin Discharge Activity: Return to Normal Activity Weight Bearing Status: Weight bearing as tolerated Call your doctor if you observe: Fever of 101 or Higher, - - worsening abdominal pain Instructions: Understanding Diverticulosis and Diverticulitis, Discharge Instructions for Diverticulitis Allergies/Adverse Reactions: Allergies difluprednate [From Durezol] Allergy (Verified 09/27/18 14:58) Other methylprednisolone Allergy (Verified 09/27/18 14:58) Rash Penicillins Allergy (Verified 09/27/18 14:58) Unknown prednisolone Allergy (Verified 09/27/18 14:58) Swelling citalopram Adverse Reaction (Verified 09/27/18 14:58) Diarrhea codeine Adverse Reaction (Verified 09/27/18 14:58) Nausea duloxetine HCl [From Cymbalta] Adverse Reaction (Verified 09/27/18 14:58) Diarrhea lamotrigine [From Lamictal] Adverse Reaction (Verified 09/27/18 18:56) DRUGGED FEELING metoclopramide HCl [From Reglan] Adverse Reaction (Verified 09/27/18 18:55) INVOLUNTARY BODY MOVEMENTS promethazine HCl [From Phenergan] Adverse Reaction (Verified 09/27/18 18:55) INVOLUNTARY BODY MOVEMENTS sertraline HCl [From Zoloft] Adverse Reaction (Verified 09/27/18 14:58) Diarrhea sulfamethoxazole [From Bactrim] Adverse Reaction (Verified 09/27/18 18:55) FELT WEIRD, HEAD NUMB, FELT DRUGGED, SHAKEY, NAUSEATED trimethoprim [From Bactrim] Adverse Reaction (Verified 09/27/18 18:56) FELT WEIRD, HEAD NUMB, FELT DRUGGED, SHAKEY, NAUSEATED Medications to take at Discharge Acetaminophen [Tylenol] 500 mg PO Q6H PRN PRN 03/29/16 Aspirin [Adult Low Dose Aspirin EC] 81 mg PO DINNER 03/29/16 Atorvastatin Calcium [Lipitor] 5 mg PO QODAY 03/29/16 Calcium Citrate/Vitamin D3 [Calcium Citrate - Vit D Tablet] 2 tab PO BID 03/29/16 CycloSPORINE Ophthalmic [Restasis Ophthalmic] 1 drop EACH EYE BID 03/29/16 Docusate Sodium [Colace] 100 mg PO TID PRN PRN 03/29/16 Ergocalciferol [Vitamin D] 50,000 unit PO QMONTH 03/29/16 Flaxseed Oil [[place]-3 Flaxseed Oil] 1,000 mg PO DAILY 03/29/16 Hydroxychloroquine [Plaquenil] 200 mg PO DAILYCM 03/29/16 Melatonin 3 mg PO QHS 03/29/16 Omeprazole [Prilosec] 20 mg PO BREAKFAST 03/29/16 Pilocarpine HCl [Salagen] 5 mg PO TID 03/29/16 Polyethylene Glycol 3350 [Miralax] 17 gm PO DAILY PRN PRN 03/29/16 Pramipexole Di-HCl [Mirapex] 0.125 mg PO 1530,1800,2000,2200 03/29/16 Saliva Substitute Comb No.10 [Neutrasal] 1 each MM PRN PRN 03/29/16 Oxycodone HCl/Acetaminophen [Percocet 5-325] 0.5 tablet PO BID 09/19/16 Clonazepam 0.25 mg PO QHS 09/27/18 Fluticasone Propionate 2 sprays NASAL DAILY 09/27/18 Gabapentin [Neurontin] 300 mg PO BID 09/27/18 Magnesium Oxide [Magnesium] 250 mg PO QHS 09/27/18 Mineral Oil/Petrolatum,White [Systane Nighttime Eye Ointment] 3.5 gm OP DAILY 09/27/18 Multivitamin [Multiple Vitamins] 1 tab PO DAILY 09/27/18 Propylene Glycol/Peg 400 [Systane Ultra 0.4-0.3% Eye Drp] 30 ml OP 4X/DAY 09/27/18 Tumeric 500 mg PO DAILY 09/27/18 Venlafaxine HCl [Venlafaxine HCl ER] 150 mg PO DAILY 09/27/18 Vitamin B Complex [B Complex] 1 tab PO DAILY 09/27/18 Wheat Dextrin [Benefiber] 5 ml PO DAILY 09/27/18 Amoxicillin/Potassium Clav [Amox Tr-K Clv 875-125 mg Tab] 1 each PO BID #28 tablet 10/01/18 Pantoprazole Sodium 40 mg PO DAILY #30 tablet.dr 10/01/18 Sucralfate [Carafate] 1 gm PO 1HR_ACHS #30 tablet 10/01/18 The following prescriptions were given: Pantoprazole Sodium 40 mg PO DAILY #30 tablet. Sucralfate [Carafate] 1 gm PO 1HR_ACHS #30 tablet Amoxicillin/Potassium Clav [Amox Tr-K Clv 875-125 mg Tab] 1 each PO BID #28 tablet Primary Care Physician: Leatha Kincaid MD [Primary Care Provider] - Please follow up with your Primary Care Physician in: one week Test Results: Test results from this visit will be discussed in further detail at your follow- up appointment, if applicable. Please Follow Up With: Reinier Souza MD When: Please Follow Up With: Reinier Souza MD When: thursday Proposed Discharge Date: 10/01/18
[2018-10-01 12:19] VITALS: BP 105/54; PULSE 83; RESP 20; TEMP 36.7; O2SAT 98
--- NOTE | 2018-10-04 13:15 | CASEMGMT ---
MIGUEL SÁNCHEZ DC PHONE CALL DC DATE: 10/01/18 DC DISPOSITION: Home LACE/STRATA: 08/10 Intro role of CM to patient via phone. She states she is still not feeling well and has a URI now since being in hospital. Reviewed f/u appointments with pt and recommended if symptoms worsen to call PCP or Dr. Souza's and speak with nurse. Noted f/u appointments were listed with Dr. Souza twice in one week. Called to office to verify. Appt is Oct 15 @ 2 pm. Call back and message left with pt to update and also left call back information for Dr. Souza and MIGUEL SÁNCHEZ. Bev ANDREWSN RN ACM
--- OUTSIDE RECORDS SUMMARY | 2018-11-30 03:51 | XMS RPT_ITS ---
:1935 Author Organization OHIP Support Name Relationship Address Phone NAYANA MOLINA Unavailable Unavailable + [place] [address] R Unavailable Unavailable Unavailable CHILD, JEAN PAUL Unavailable Unavailable + [place], [place] HUDSON MOLINAIE Unavailable Unavailable + [place] [address] R Unavailable Unavailable Unavailable CHILD, JEAN PAUL Unavailable Unavailable + [place] MOLINAIE Unavailable Unavailable + [place] [address] R Unavailable Unavailable Unavailable CHILD, JEAN PAUL Unavailable Unavailable + [place] MOLINAIE Unavailable Unavailable + [place] [address] R Unavailable Unavailable Unavailable CHILD, JEAN PAUL Unavailable Unavailable + [place] MOLINAHUDSON COLMENARESIE Unavailable Unavailable + [place] [address] R Unavailable Unavailable Unavailable CHILD, JEAN PAUL Unavailable Unavailable + [place] MOLINAHUDSONIE Unavailable Unavailable + [place] [address] R Unavailable Unavailable Unavailable CHILD, JEAN PAUL Unavailable Unavailable + [place] HU[place] MOLINAIE Unavailable Unavailable + [place] [address] R Unavailable Unavailable Unavailable CHILD, JEAN PAUL Unavailable Unavailable + [place] TRACY NAYANA Unavailable Unavailable + [place] [address] R Unavailable Unavailable Unavailable CHILD, JEAN PAUL Unavailable Unavailable + [place] MOLINA NAYANA Unavailable Unavailable + [place] [address] R Unavailable Unavailable Unavailable CHILD, JEAN PAUL Unavailable Unavailable + [place] MOLINA NAYANA Unavailable . + [place] [address] R Unavailable Unavailable Unavailable CHILD, JEAN PAUL Unavailable . + [place] [address] MOLINA, NAYANA Unavailable Unavailable + [place] [address] R Unavailable Unavailable Unavailable CHILD, JEAN PAUL Unavailable Unavailable + [place] Care Team Providers Name Role Phone AZEM, MAY Attending Unavailable AZEM, MAY Referring Unavailable AZEM, JANUARY Attending Unavailable AZEM, JANUARY Referring Unavailable AZEM, JANUARY Referring Unavailable SEGOVIA, FELY Attending Unavailable SEGOVIA, FELY Referring Unavailable SEGOVIA, FELY Referring Unavailable SEGOVIA, FELY Referring Unavailable SEGOVIA, FELY Attending Unavailable SEGOVIA, FELY Referring Unavailable [facility] Primary Care Unavailable Ashelfah, Ghasem Admitting Unavailable Ashelfah, Ghasem Referring Unavailable Reinier Souza Consulting Unavailable Koram, Hiral Nereyda Attending Unavailable Ashelfah, Ghasem Admitting Unavailable Ashelfah, Ghasem Attending Unavailable Ashelfah, Ghasem Referring Unavailable [facility] Primary [facility] Unavailable Ashelfah, Ghasem Consulting Unavailable Ashelfah, Ghasem Admitting Unavailable Reinier Souza Attending Unavailable Ashelfah, Ghasem Referring Unavailable [facility] Primary Care Unavailable Reinier Souza Consulting Unavailable Koram, Hiral Nereyda Consulting Unavailable Ashelfah, Ghasem Admitting Unavailable Koram, Hiral Nereyda Attending Unavailable Ashelfah, Ghasem Referring Unavailable [facility] Primary Care Unavailable Reinier Souza Consulting Unavailable Koram, Hiral Nereyda Consulting Unavailable Ashelfah, Ghasem Admitting Unavailable Reinier Souza Attending Unavailable Ashelfah, Ghasem Referring Unavailable [facility], Anyi Primary Care Unavailable Reinier Souza Consulting Unavailable Koram, Hiral Nereyda Consulting Unavailable Ashelfah, Ghasem Admitting Unavailable Koram, Hiral Nereyda Attending Unavailable Ashelfah, Ghasem Referring Unavailable [facility] Primary [facility] Unavailable Reinier Souza Consulting Unavailable Koram, Hiral Nereyda Consulting Unavailable Ashelfah, Ghasem Admitting Unavailable CalabrettaReinier Attending Unavailable Ashelfah, Ghasem Referring Unavailable Ganta, Anyi Primary Care Unavailable CalabrReinier haskins Consulting Unavailable Koram, Hiral Nereyda Consulting Unavailable Moe, [place] TECHNOLOGY SALES SPECIALIST-C Attending Unavailable Moe, Leonila TECHNOLOGY SALES SPECIALIST-C Referring Unavailable Ganta, Anyi Primary Care Unavailable Ashelfah, Ghasem Admitting Unavailable Koram, Hiral Nereyda Attending Unavailable Ashelfah, Ghasem Referring Unavailable Ganta, Anyi Primary Care Unavailable CalabrReinier haskins Consulting Unavailable Koram, Hiral Nereyda Consulting Unavailable Ashelfah, Ghasem Admitting Unavailable CalabrettaReinier Attending Unavailable Ashelfah, Ghasem Referring Unavailable Ganta, Anyi Primary Care Unavailable CalabrettaKishorReinier Consulting Unavailable Koram, Hiral Nereyda Consulting Unavailable Ashelfah, Ghasem Admitting Unavailable Koram, Hiral Nereyda Attending Unavailable Ashelfah, Ghasem Referring Unavailable Ganta, Anyi Primary Care Unavailable PascualabrReinier haskins Consulting Unavailable Koram, Hiral Nereyda Consulting Unavailable LEMON, EMELYN (PT) Attending Unavailable GANTA, ANYI Referring Unavailable LEMON, EMELYN (PT) Attending Unavailable GANTA, ANYI Referring Unavailable LEMON, EMELYN (PT) Attending Unavailable GANTA, ANYI Referring Unavailable JOSIE LEGER Attending Unavailable LEMON, EMELYN (PT) Attending Unavailable GANTA, ANYI Referring Unavailable GANTA, ANYI Attending Unavailable GANTA, ANYI Referring Unavailable GANTA, ANYI Referring Unavailable MOUL, BRENDA E Attending Unavailable MOUL, BRENDA E Referring Unavailable LEMON, EMELYN (PT) Attending Unavailable GANTA, ANYI Referring Unavailable LEMON, EMELYN (PT) Attending Unavailable GANTA, ANYI Referring Unavailable LEMON, EMELYN (PT) Attending Unavailable GANTA, ANYI Referring Unavailable LEMON, EMELYN (PT) Attending Unavailable GANTA, ANYI Referring Unavailable LEMON, EMELYN (PT) Attending Unavailable GANTA, ANYI Referring Unavailable LEMON, EMELYN (PT) Attending Unavailable GANTA, ANYI Referring Unavailable LEMON, EMELYN (PT) Attending Unavailable GANTA, ANYI Referring Unavailable LEMON, EMELYN (PT) Attending Unavailable GANTA, ANYI Referring Unavailable ROCÍO QUINTANA Attending Unavailable QUINTANA, ROCÍO D Referring Unavailable QUINTANA, ROCÍO D Referring Unavailable GANTA, ANYI Attending Unavailable GANTA, ANYI Referring Unavailable QUINTANA, RCOÍO D Attending Unavailable QUINTANA, ROCÍO D Referring Unavailable QUINTANA, ROCÍO D Referring Unavailable MOUL, BRENDA E Attending Unavailable MOUL, BRENDA E Referring Unavailable OLDER, FAITH (COMMISSIONING SPECIALIST) Attending Unavailable OLDER, FAITH (COMMISSIONING SPECIALIST) Referring Unavailable OLDER, FAITH (COMMISSIONING SPECIALIST) Referring Unavailable GANTA, ANYI Attending Unavailable GANTA, ANYI Referring Unavailable GANTA, ANYI Referring Unavailable MOUL, BRENDA E Attending Unavailable MOUL, BRENDA E Referring Unavailable JOSIE LEGER Referring Unavailable QUINTANA, ROCÍO D Referring Unavailable GANTA, ANYI Attending Unavailable Tammy MONTES JANUARY Attending Unavailable Tammy MONTES JANUARY Referring Unavailable [facility] Primary Care Unavailable Tammy MONTES JANUARY Attending Unavailable Tammy MONTES JANUARY Referring Unavailable [facility] Primary Care Unavailable Tammy MONTES JANUARY Referring Unavailable [facility] Primary Care Unavailable FELY SEGOVIA Attending Unavailable FELY SEGOVIA Referring Unavailable [facility] Primary Care Unavailable SEGOVIAFELY MAHMOOD Attending Unavailable SEGOVIA FELY Referring Unavailable [facility] Primary Care Unavailable FELY SEGOVIA Attending Unavailable SEGOVIA FELY Referring Unavailable [facility] Primary Care Unavailable ADAM ALEXANDER Attending Unavailable [facility] Referring Unavailable [facility] Primary Care Unavailable SEGOVIA FELY Referring Unavailable [facility] Primary Care Unavailable SEGOVIA, FELY Referring Unavailable [facility] Primary Care Unavailable PROBLEMS PROBLEMS DATE TYPE CONDITION / CODE ATTENDING STATUS SOURCE 08/24/2018 Active Encounter for NA Active [facility] screening [facility] for malignant [place] neoplasm of breast / Repository Z12.31(ICD-10) 08/23/2018 Active Unknown / SEGOVIA, Active [place] UNK(Unknown) [facility] Other [place] Repository 11/25/2017 Active Obstructive sleep MOBRENDA KELLEY Active [facility] apnea (adult) [facility] (pediatric) / [place] G47.33(ICD-10) Repository 07/23/2016 Active 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, recurrent, [facility]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 [place] / F33.41(ICD-10) Repository 07/23/2016 Active Restless legs MOBRENDA KELLEY Active [place] syndrome / [facility] G25.81(ICD-10) [place] Repository 08/11/2018 Active Anxiety disorder, MOUL, BRENDA Active [facility] [place] unspecified / [facility] F41.9(ICD-10) [place] Repository 08/11/2018 Active Tension-type MOUL, BRENDA Active [place] headache, [facility] unspecified, not [place] intractable / Repository G44.209(ICD-10) 07/20/2018 Active Hyperglycemia, NA Active [facility] [place] unspecified / Clinic [facility] R73.9(ICD-10) [place] Repository 07/02/2018 Active Chest pain, NA Active [facility] [place] unspecified / Clinic Main R07.9(ICD-10) [place] Repository 07/02/2018 Active Cough / R05(ICD-10) NA Active [facility] [place] Repository 06/21/2018 Active Sicca syndrome, SEGOVIA, Active [place] [place] unspecified / [facility] Clinic Other M35.00(ICD-10) [place] Repository 06/21/2018 Active Pain in unspecified SEGOVIA, Active [place] joint / [facility] Other M25.50(ICD-10) [place] Rep[facility] 04/30/2016 Active Age-related AZEM, JANUARY Active [facility] osteoporosis without Clinic Other current pathological [place] fracture / Repository M81.0(ICD-10) 08/03/2015 Active Raynaud's syndrome AZEM, JANUARY Active [facility] without gangrene / Clinic Other I73.00(ICD-10) [place] Repository 03/03/2018 Unknown R20.0 - Anesthesia MoeSushanta Active [facility] TECHNOLOGY SALES SPECIALIST-[facility] R20.0(ICD-10) Hospital Repository 03/03/2018 Unknown R20.2 - Paresthesia Leonila Rosa Active [place] [facility] TECHNOLOGY SALES SPECIALIST-[facility] R20.2(ICD-10) Hospital Repository 11/05/2016 Active Adjustment insomnia AZEM, JANUARY Active [facility] / F51.02(ICD-10) Clinic Other [place] Repository 06/13/2016 Active Spinal stenosis, AZEM, JANUARY Active [facility] lumbar region Clinic Other without neurogenic [place] claudication / Repository M48.061(ICD-10) 06/13/2016 Active Low back pain / AZEM, JANUARY Active [facility] M54.5(ICD-10) Clinic Other [place] Repository 06/13/2016 Active Other chronic pain / AZEM, MAY Active [facility] G89.29(ICD-10) Clinic Other [place] Repository 06/13/2016 Active Wedge compression AZEM, MAY Active [facility] fracture of T7-t8 Clinic Other vertebra, subsequent [place] encounter for Repository fracture with routine healing / S22.060D(ICD-10) 04/30/2016 Active Pain in joints of AZEM, MAY Active [facility] unspecified hand / Clinic Other M25.549(ICD-10) [place] Repository 04/30/2016 Active Glossodynia / AZEM, MAY Active [facility] K14.6(ICD-10) Clinic Other [place] Repository 04/30/2016 Active Age-related AZEM, MAY Active [facility] osteoporosis with Clinic Other current pathological [place] fracture, Repository unspecified site, sequela / M80.00XS(ICD-10) 12/13/2015 Active Malignant neoplasm AZEM, 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 / Clinic Other C69.32(ICD-10) [place] Repository 08/03/2015 Active Sicca syndrome with AZEM, MAY Active [facility] other organ Clinic Other involvement / [place] M35.09(ICD-10) Repository 08/03/2015 Active Vitamin D AZEM, MAY Active [facility] deficiency, Clinic Other unspecified / [place] E55.9(ICD-10) Repository 12/22/2017 Active Unspecified AZEM, MAY Active [facility] inflammatory Clinic Other spondylopathy, [place] multiple sites in Repository spine / M46.99(ICD-10) 11/05/2016 Admitting Unknown / Tammy MONTES MAY Active [facility] UNK(Unknown) [facility] Repository 09/14/2015 Active Hyperlipidemia, NA Active [facility] unspecified / Clinic Main E78.5(ICD-10) [place] Repository 11/17/2017 Active Other symptoms and NA Active [facility] signs involving the Clinic Main musculoskeletal [place] system / Repository R29.898(ICD-10) 11/17/2017 Active Rheumatoid NA Active [facility] arthritis, Clinic Main unspecified / [place] M06.9(ICD-10) Repository PROCEDURES PROCEDURES No Procedure Records FoundRESULTS RESULTS DISCHARGE SUMMARY Observed: 10/01/2018 Status: F Source: [place] 3:16 PM [facility] REPOSITORY [facility] Medical Records Department [address] [place] [address] [place] [address] Discharge Summary 10/01/18 1117 MR#: [id number] Acct: [id number] Name: MICHAEL MOLINA Rep #: [id number] : 1935 82 From: Hiral De La Torre MD PCP: Anyi Irving MD Status: DIS IN Y Location: CA3 NY476-1 Discharge Date and Diagnosis - Problem List Patient Problems: Active and Suspected Problems Diverticulitis (Acute) Date of Admission: 09/27/18 Date of Discharge: 10/01/18 - Primary Discharge Diagnosis Active and Suspected Problems Diverticulitis (Acute) - Secondary Discharge Diagnosis Chronic Problems Sjogrens syndrome (Chronic) Osteoporosis (Chronic) Osteoarthritis (Chronic) RLS (restless legs syndrome) (Chronic) Ankylosing spondylitis (Chronic) Colitis (Chronic) 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 History of compression fracture of spine (Chronic) L1, january 29 Premature atrial contractions (Chronic) Mixed anxiety and depressive disorder (Chronic) Hospital Course and Treatment Imaging Results: Diagnostic Data Abdomen/Pelvis CT 09/27/18 15:23 IMPRESSION: Acute sigmoid diverticulitis compensated by formation of a small adjacent abscess with prominent inflammation of the bowel segment wall. 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 No apparent obstructive lesion. Electronically Signed: Charles Gordon MD at 16:46 EST Tel , Service support , Chest X-Ray 09/27/18 16:28 IMPRESSION: There are findings consistent with COPD. There is no evidence of acute chest disease. Electronically Signed: Zhao Lantigua MD at 16:46 EST , Service support , general surgery- Dr Souza Operations: None Procedures: None Summary of Care Provided: The patient is a 82 year old F with a PMH of Sjogrens syndrome, osteoporosis, OA, restless leg syndrome, ankylosing spondylitis, history of chronic L1 compression fracture and anxiety and depression. She was admitted on 09/27/2018 with a complaint of abdominal pain of one week's duration. Pain was mainly in the lower left quadrant with assisted nausea but no vomiting. Pain also radiated to the epigastric region. She said pain is been present for about a month but worsened over the past 6 days prior to admission. She had had colonoscopy in the recent past and was found to have extensive diverticulosis. CBC showed leukocytosis and potassium of 3.[address] of the abdomen and pelvis with contrast showed acute sigmoid diverticulitis with small adjacent abscess. She was admitted and managed for acute sigmoid diverticulitis with small abscess. pantoprazole and sucralfate were added on o/a of epigastric pain which was suspicious for gastritis. She was initially started on IV ciprofloxacin and metronidazole. General surgery was consulted and antibiotic coverage was broadened to IV Zosyn. Abdominal pain still persisted but improved with time. Leukocytosis resolved. Blood culture grew alpha hemolytic strep (Strep mitis/oralis and Strep salivarius. Urine cultured mixed gram positive and gram negative organisms. Abdominal pain improved significantly and she was discharged home on 10/01/18. She is to follow up with her PCP, and general surgery. She is to have a repeat CT of the abdomen and pelvis which will be ordered by general surgery. She was discharged with a script for PO augmentin for 14 days, and PO pantoprazole as well as Sucralfate. Patient seen and examined prior to discharge. She complained of restless legs and was worried that sucralfate may have caused exacerbation of her restless leg syndrome. Literature reviewed and there is no evidence of sucralfate causing restless leg syndrome or exacerbation of it and patient was informed about this. Abdominal pain is improved. She denied any palpitations dizziness or lightheadedness. On examination Vital Signs Height 4 ft 11 in Weight: 106 lb 14.787 oz Weight in Pounds 106.9 lbs Pulse Ox 98 [] General: Alert, Oriented x3, Cooperative, No apparent distress HEENT: Atraumatic, PERRLA, EOMI, Normocephalic Oral: Moist Mucosa Neck: Supple, No JVD, Negative Carotid Bruits Lungs: Clear to auscultation, Normal air movement, No rhonchi, No wheeze, No rales Cardiovascular: Regular rate, Regular Rhythm, Normal S1, Normal S2, No murmurs Abdomen: Bowel Sounds Present, Soft, Non-Distended, - - Minimal epigastric and left lower quadrant tenderness, with no guarding or rebound tenderness. Extremities: No clubbing, No cyanosis, No edema, Capillary Refill Less than 3 Seconds Skin: No rashes, No breakdown Musculoskeletal: No Tenderness to Palpation of Joints or Extremities Lymphatic: No Cervical, Supraclavicular, or Inguinal Adenopathy Neurological: Cranial nerves II-XII grossly intact Psych/Mental Status: Normal Affect, Appropriate, Alert and oriented to time, place, person, mood and affect Plan as described above. Patient Problems: Active and Suspected Problems Diverticulitis (Acute) - Physical Exam Vital Signs Temp Pulse Resp BP Pulse Ox 99.0 F 100 20 H 115/58 L 100 10/01/18 08:26 10/01/18 08:26 10/01/18 08:26 10/01/18 08:26 10/01/18 08:26 Oxygen Delivery Method Room Air Weight: 106 lb 14.787 oz Body Mass Index (BMI) 21.6 Finger Stick Blood Glucose 139 Intake and Output for Last 24 Hours Intake Total 3980 / 3980 3560 / 3560 834 / 834 Balance 3980 / 3980 3560 / 3560 834 / 834 Microbiology Past 72 Hours 09/27/18 17:00 Bacteria Detection (PCR) - Final Laboratory Tests Past 24 Hrs WBC 8.7 RBC 4.25 Hgb 11.8 L Hct 36.9 L MCV 86.8 MCH 27.8 MCHC 32.0 Discharge Diet: - - high fiber, soft diet Discharge Activity: Return to Normal Activity Weight Bearing Status: Weight bearing as tolerated Home Medications: Medications to take at Discharge Acetaminophen [Tylenol] 500 mg PO Q6H PRN PRN 03/29/16 Aspirin [Adult Low Dose Aspirin EC] 81 mg PO DINNER 03/29/16 Atorvastatin Calcium [Lipitor] 5 mg PO QODAY 03/29/16 Calcium Citrate/Vitamin D3 [Calcium Citrate - Vit D Tablet] 2 tab PO BID 03/29/16 CycloSPORINE Ophthalmic [Restasis Ophthalmic] 1 drop EACH EYE BID 03/29/16 Docusate Sodium [Colace] 100 mg PO TID PRN PRN 03/29/16 Ergocalciferol [Vitamin D] 50,000 unit PO QMONTH 03/29/16 Flaxseed Oil [Exline-3 Flaxseed Oil] 1,000 mg PO DAILY 03/29/16 Hydroxychloroquine [Plaquenil] 200 mg PO DAILYCM 03/29/16 Melatonin 3 mg PO QHS 03/29/16 Omeprazole [Prilosec] 20 mg PO BREAKFAST 03/29/16 Pilocarpine HCl [Salagen] 5 mg PO TID 03/29/16 Polyethylene Glycol 3350 [Miralax] 17 gm PO DAILY PRN PRN 03/29/16 Pramipexole Di-HCl [Mirapex] 0.125 mg PO 1530,1800,2000,2200 03/29/16 Saliva Substitute Comb No.10 [Neutrasal] 1 each MM PRN PRN 03/29/16 Oxycodone HCl/Acetaminophen [Percocet 5-325] 0.5 tablet PO BID 09/19/16 Clonazepam 0.25 mg PO QHS 09/27/18 Fluticasone Propionate 2 sprays NASAL DAILY 09/27/18 Gabapentin [Neurontin] 300 mg PO BID 09/27/18 Magnesium Oxide [Magnesium] 250 mg PO QHS 09/27/18 Mineral Oil/Petrolatum,White [Systane Nighttime Eye Ointment] 3.5 gm OP DAILY 09/27/18 Multivitamin [Multiple Vitamins] 1 tab PO DAILY 09/27/18 Propylene Glycol/Peg 400 [Systane Ultra 0.4-0.3% Eye Drp] 30 ml OP 4X/DAY 09/27/18 Tumeric 500 mg PO DAILY 09/27/18 Venlafaxine HCl [Venlafaxine HCl ER] 150 mg PO DAILY 09/27/18 Vitamin B Complex [B Complex] 1 tab PO DAILY 09/27/18 Wheat Dextrin [Benefiber] 5 ml PO DAILY 09/27/18 Amoxicillin/Potassium Clav [Amox Tr-K Clv 875-125 mg Tab] 1 each PO BID #28 tablet 10/01/18 Pantoprazole Sodium 40 mg PO DAILY #30 tablet. 10/01/18 Sucralfate [Carafate] 1 gm PO 1HR_ACHS #30 tablet 10/01/18 Following Prescrptions Were Given to Patient: Pantoprazole Sodium 40 mg PO DAILY #30 tablet. Sucralfate [Carafate] 1 gm PO 1HR_ACHS #30 tablet Amoxicillin/Potassium Clav [Amox Tr-K Clv 875-125 mg Tab] 1 each PO BID #28 tablet Primary Care Physician: Anyi Irving MD [Primary Care Provider] - Please Follow Up With: Reinier Souza MD When: Please Follow Up With: Reinier Souza MD When: thursday Patient Instructions: Understanding Diverticulosis and Diverticulitis, Discharge Instructions for Diverticulitis Disposition: Home Minutes spent on discharge:: 35 Patient Condition:: Stable Medical Necessity - Tobacco Use Smoking Status: Never smoker Tobacco Use: Cigarettes Meaningful Use Info Meaningful Use Diagnoses (Choose all that apply): None applicable Code Visit Inpatient E AND M: 54241 Disch Hosp 10/01/18 1516 <Electronically signed by Hiral De La Torre MD> Date Hiral De La Torre MD Cosigner Signature (if applicable): Date CC: Anyi Irving MD; Hiral De La Torre MD Signed DISCHARGE INSTRUCTION Observed: 10/01/2018 Status: F Source: [place] 12:03 PM [facility] REPOSITORY [facility] Medical Records Department [address] [place] [id number] Instructions for Home/Discharge Instructions 10/01/18 1201 MR#: [id number] Acct: [id number] Name: MICHAEL MOLINA Rep #: [id number] : 1935 82 From: Hiral De La Torre MD PCP: Anyi Irving MD Status: ADM IN - Discharge Diagnoses Current Active Problems: Current Active and Chronic Problems Diverticulitis (Acute) You will use the following diet at home:: Other - low fibre soft diet Your food should be the consistency of: Regular Your liquids should be the consistency of: Regular/Thin Discharge Activity: Return to Normal Activity Weight Bearing Status: Weight bearing as tolerated Call your doctor if you observe: Fever of 101 or Higher, - - worsening abdominal pain Instructions: Understanding Diverticulosis and Diverticulitis, Discharge Instructions for Diverticulitis Allergies/Adverse Reactions: Allergies difluprednate [From Durezol] Allergy (Verified 09/27/18 14:58) Other methylprednisolone Allergy (Verified 09/27/18 14:58) Rash Penicillins Allergy (Verified 09/27/18 14:58) Unknown prednisolone Allergy (Verified 09/27/18 14:58) Swelling citalopram Adverse Reaction (Verified 09/27/18 14:58) Diarrhea codeine Adverse Reaction (Verified 09/27/18 14:58) Nausea duloxetine HCl [From Cymbalta] Adverse Reaction (Verified 09/27/18 14:58) Diarrhea lamotrigine [From Lamictal] Adverse Reaction (Verified 09/27/18 18:56) DRUGGED FEELING metoclopramide HCl [From Reglan] Adverse Reaction (Verified 09/27/18 18:55) INVOLUNTARY BODY MOVEMENTS promethazine HCl [From Phenergan] Adverse Reaction (Verified 09/27/18 18:55) INVOLUNTARY BODY MOVEMENTS sertraline HCl [From Zoloft] Adverse Reaction (Verified 09/27/18 14:58) Diarrhea sulfamethoxazole [From Bactrim] Adverse Reaction (Verified 09/27/18 18:55) FELT WEIRD, HEAD NUMB, FELT DRUGGED, SHAKEY, NAUSEATED trimethoprim [From Bactrim] Adverse Reaction (Verified 09/27/18 18:56) FELT WEIRD, HEAD NUMB, FELT DRUGGED, SHAKEY, NAUSEATED Medications to take at Discharge Acetaminophen [Tylenol] 500 mg PO Q6H PRN PRN 03/29/16 Aspirin [Adult Low Dose Aspirin EC] 81 mg PO DINNER 03/29/16 Atorvastatin Calcium [Lipitor] 5 mg PO QODAY 03/29/16 Calcium Citrate/Vitamin D3 [Calcium Citrate - Vit D Tablet] 2 tab PO BID 03/29/16 CycloSPORINE Ophthalmic [Restasis Ophthalmic] 1 drop EACH EYE BID 03/29/16 Docusate Sodium [Colace] 100 mg PO TID PRN PRN 03/29/16 Ergocalciferol [Vitamin D] 50,000 unit PO QMONTH 03/29/16 Flaxseed Oil [Exline-3 Flaxseed Oil] 1,000 mg PO DAILY 03/29/16 Hydroxychloroquine [Plaquenil] 200 mg PO DAILYCM 03/29/16 Melatonin 3 mg PO QHS 03/29/16 Omeprazole [Prilosec] 20 mg PO BREAKFAST 03/29/16 Pilocarpine HCl [Salagen] 5 mg PO TID 03/29/16 Polyethylene Glycol 3350 [Miralax] 17 gm PO DAILY PRN PRN 03/29/16 Pramipexole Di-HCl [Mirapex] 0.125 mg PO 1530,1800,2000,2200 03/29/16 Saliva Substitute Comb No.10 [Neutrasal] 1 each MM PRN PRN 03/29/16 Oxycodone HCl/Acetaminophen [Percocet 5-325] 0.5 tablet PO BID 09/19/16 Clonazepam 0.25 mg PO QHS 09/27/18 Fluticasone Propionate 2 sprays NASAL DAILY 09/27/18 Gabapentin [Neurontin] 300 mg PO BID 09/27/18 Magnesium Oxide [Magnesium] 250 mg PO QHS 09/27/18 Mineral Oil/Petrolatum,White [Systane Nighttime Eye Ointment] 3.5 gm OP DAILY 09/27/18 Multivitamin [Multiple Vitamins] 1 tab PO DAILY 09/27/18 Propylene Glycol/Peg 400 [Systane Ultra 0.4-0.3% Eye Drp] 30 ml OP 4X/DAY 09/27/18 Tumeric 500 mg PO DAILY 09/27/18 Venlafaxine HCl [Venlafaxine HCl ER] 150 mg PO DAILY 09/27/18 Vitamin B Complex [B Complex] 1 tab PO DAILY 09/27/18 Wheat Dextrin [Benefiber] 5 ml PO DAILY 09/27/18 Amoxicillin/Potassium Clav [Amox Tr-K Clv 875-125 mg Tab] 1 each PO BID #28 tablet 10/01/18 Pantoprazole Sodium 40 mg PO DAILY #30 tablet. 10/01/18 Sucralfate [Carafate] 1 gm PO 1HR_ACHS #30 tablet 10/01/18 The following prescriptions were given: Pantoprazole Sodium 40 mg PO DAILY #30 tablet. Sucralfate [Carafate] 1 gm PO 1HR_ACHS #30 tablet Amoxicillin/Potassium Clav [Amox Tr-K Clv 875-125 mg Tab] 1 each PO BID #28 tablet Primary Care Physician: Anyi Irving MD [Primary Care Provider] - Please follow up with your Primary Care Physician in: one week Test Results: Test results from this visit will be discussed in further detail at your follow-up appointment, if applicable. Please Follow Up With: Reinier Souza MD When: Please Follow Up With: Reinier Souza MD When: thursday Proposed Discharge Date: 10/01/18 10/01/18 1203 <Electronically signed by Hiral De La Torre MD> Date Hiral De La Torre MD CC: Reinier Souza MD; Anyi Irving MD Signed CBC W/DIFF, AUTOMATED Collected: 10/01/2018 Status: F Source: [place] 5:18 AM [facility] REPOSITORY TYPE CODE TESTS RESULT OUT OF RANGE REFERENCE UNITS LAB L100.1000 4.4-11.0 K/mm3 Normal WBC 8.7 LAB L100.1200 4.2-5.4 M/mm3 Normal RBC 4.25 LAB L100.1300 12.0-15.0 g/dl Low HGB 11.8 LAB L100.1400 37-47 % Low HCT 36.9 LAB L100.1500 81-99 fL Normal MCV 86.8 LAB L100.1600 27.0-32.0 pg Normal MCH 27.8 LAB L100.1700 32-36 g/gl Normal MCHC 32.0 LAB L100.1810 11.6-14.6 % Normal RDW CV 13.1 LAB L100.1820 35.1-43.9 fl Normal RDW SD 41.2 LAB L100.1900 150-450 K/mm3 Normal PLT 277 LAB L100.2000 6.2-12.0 fl Normal MPV 9.9 LAB L100.2100 47-70 % High NEUT% 77.2 LAB L100.2200 19-41 % Low LY% 11.6 LAB L100.2300 0-10 % Normal MONO% 8.8 LAB L100.2400 0-5 % Normal EO% 2.1 LAB L100.2500 0-1 % Normal BASO% 0.2 LAB L100.2550 0.0-0.9 % Normal IM GRAN % 0.100 Result Comment: IG% - Immature Granulocytes (promyelocytes, myelocytes and metamyelocytes) > 1% indicates that a LEFT SHIFT is Present. LAB L100.2620 2.0-7.7 X10 3/uL Normal Absolute Neut 6.7 LAB L100.2720 0.83-4.51 X10 3/ul Normal Absolute Lymph 1.01 Performed By: #### L100.0100 #### [facility] [address] [place], [address] BASIC METABOLIC Collected: 10/01/2018 Status: F Source: [place] PROFILE (BMP) 5:18 AM [facility] REPOSITORY TYPE CODE TESTS RESULT OUT OF RANGE REFERENCE UNITS LAB L501.0100 74-106 mg/dL Normal GLU 78 Result Comment: Please note revised GLUCOSE reference range effective 2017. LAB L501.1000 7-18 mg/dL Low BUN 4 LAB L501.1100 0.55-1.02 mg/dL Normal CREAT,SERUM 0.67 Result Comment: The validity of the calculated GFR AND GFRAA in patients over 70 years has not been determined. Clinical correlation is essential. LAB L501.1110 >60 mL/min Normal EST GFR 89 Result Comment: Non- GFR Calc LAB L501.1115 >60 mL/min Normal EST GFR - AA 108 Result Comment: GFR Calc LAB L501.1255 ml/min Normal Estimated CRCL 33.21 LAB L501.1300 10-20 RATIO Low BUN/CRE 5.9 LAB L501.2200 8.5-10 mg/dL Normal .1 CA 8.9 LAB L501.5300 136-14 mmol/L Normal 5 NA 144 LAB L501.5600 3.5-5. mmol/L Normal 1 K 3.5 LAB L501.5900 98-107 mmol/L High CL 109 LAB L501.6100 21.0-3 mmol/L Normal 2.0 CO2 26.0 LAB L501.6200 5-15 Normal GAP 9 Performed By: #### L500.2500 #### [facility] [address] [place], [address] CBC W/DIFF, AUTOMATED Collected: 09/30/2018 Status: F Source: [place] 5:48 AM [facility] REPOSITORY TYPE CODE TESTS RESULT OUT OF RANGE REFERENCE UNITS LAB L100.1000 4.4-11.0 K/mm3 Normal WBC 7.3 LAB L100.1200 4.2-5.4 M/mm3 Normal RBC 4.47 LAB L100.1300 12.0-15.0 g/dl Normal HGB 12.7 LAB L100.1400 37-47 % Normal HCT 39.3 LAB L100.1500 81-99 fL Normal MCV 87.9 LAB L100.1600 27.0-32.0 pg Normal MCH 28.4 LAB L100.1700 32-36 g/gl Normal MCHC 32.3 LAB L100.1810 11.6-14.6 % Normal RDW CV 13.3 LAB L100.1820 35.1-43.9 fl Normal RDW SD 41.9 LAB L100.1900 150-450 K/mm3 Normal PLT 273 LAB L100.2000 6.2-12.0 fl Normal MPV 9.9 LAB L100.2100 47-70 % Normal NEUT% 65.9 LAB L100.2200 19-41 % Normal LY% 21.8 LAB L100.2300 0-10 % Normal MONO% 9.0 LAB L100.2400 0-5 % Normal EO% 2.9 LAB L100.2500 0-1 % Normal BASO% 0.3 LAB L100.2550 0.0-0.9 % Normal IM GRAN % 0.100 Result Comment: IG% - Immature Granulocytes (promyelocytes, myelocytes and metamyelocytes) > 1% indicates that a LEFT SHIFT is Present. LAB L100.2620 2.0-7.7 X10 3/uL Normal Absolute Neut 4.8 LAB L100.2720 0.83-4.51 X10 3/ul Normal Absolute Lymph 1.58 Performed By: #### L100.0100 #### [facility] [address] [place], [place], [id number] BASIC METABOLIC Collected: 09/30/2018 Status: F Source: [place] PROFILE [facility] 5:48 AM [facility] REPOSITORY TYPE CODE TESTS RESULT OUT OF RANGE REFERENCE UNITS LAB L501.0100 74-106 mg/dL Normal GLU 78 Result Comment: Please note revised GLUCOSE reference range effective 2017. LAB L501.1000 7-18 mg/dL Low BUN 2 LAB L501.1100 0.55-1.02 mg/dL Normal CREAT,SERUM 0.72 Result Comment: The validity of the calculated GFR AND GFRAA in patients over 70 years has not been determined. Clinical correlation is essential. LAB L501.1110 >60 mL/min Normal EST GFR 82 Result Comment: Non- GFR Calc LAB L501.1115 >60 mL/min Normal EST GFR - AA 99 Result Comment: GFR Calc LAB L501.1255 ml/min Normal Estimated CRCL 33.21 LAB L501.1300 10-20 RATIO Low BUN/CRE 2.8 LAB L501.2200 8.5-10 mg/dL Normal .1 CA 9.0 LAB L501.5300 136-14 mmol/L Normal 5 NA 141 LAB L501.5600 3.5-5. mmol/L Normal 1 K 4.0 LAB L501.5900 98-107 mmol/L Normal CL 107 LAB L501.6100 21.0-3 mmol/L Normal 2.0 CO2 24.0 LAB L501.6200 5-15 Normal GAP 10 Performed By: #### L500.2500 #### [facility] [address] [facility] [address] [address] [place], [address] 12 LEAD ELECTROCARDIOGRAM Observed: 09/29/2018 Status: F Source: [place] 1:41 PM [facility] REPOSITORY [facility] Cardiovascular Services [address] [place] [address] 12 Lead EKG 09/27/18 1539 MR#: [id number] Acct: [id number] Name: MICHAEL MOLINA Rep #: [id number] : 1935 82 From: Artie Christy MD Attending Dr: Hiral De La Torre MD Status: ADM IN Ordering Dr: Kate Bradley MD Date: 09/27/18 [place] [facility] [place] Sex: F C Admitted: 09/27/18 Test Reason : Blood Pressure : / mmHG Vent. Rate : 089 BPM Atrial Rate : 089 BPM P-R Int : 120 ms QRS Dur : 086 ms QT Int : 362 ms P-R-T Axes : 054 -56 036 degrees QTc Int : 440 ms Normal sinus rhythm Possible Left atrial enlargement Left anterior fascicular block Cannot rule out Inferior infarct (masked by fascicular block?) , age undetermined Poor R wave progression Abnormal ECG Confirmed by WENDY SOTO, ARTIE ([id number]), book or script editor NICOLE PARSON ([id number]) on 09/29/2018 1:40:56 PM Referred By: Melida Cassidy Confirmed By:ARTIE CHRISTY MD 09/29/18 1341 Date Artie Christy MD CC: Anyi Irving MD; Melida Cassidy; Kate Bradley MD; Hiral De La Torre MD Signed CBC W/DIFF, AUTOMATED Collected: 09/29/2018 Status: F Source: [place] 5:10 AM [facility] REPOSITORY TYPE CODE TESTS RESULT OUT OF RANGE REFERENCE UNITS LAB L100.1000 4.4-11.0 K/mm3 Normal WBC 6.5 LAB L100.1200 4.2-5.4 M/mm3 Low RBC 4.08 LAB L100.1300 12.0-15.0 g/dl Low HGB 11.4 LAB L100.1400 37-47 % Low HCT 36.6 LAB L100.1500 81-99 fL Normal MCV 89.7 LAB L100.1600 27.0-32.0 pg Normal MCH 27.9 LAB L100.1700 32-36 g/gl Low MCHC 31.1 LAB L100.1810 11.6-14.6 % Normal RDW CV 13.5 LAB L100.1820 35.1-43.9 fl Normal RDW SD 43.8 LAB L100.1900 150-450 K/mm3 Normal PLT 220 LAB L100.2000 6.2-12.0 fl Normal MPV 10.3 LAB L100.2100 47-70 % Normal NEUT% 63.1 LAB L100.2200 19-41 % Normal LY% 22.6 LAB L100.2300 0-10 % High MONO% 11.2 LAB L100.2400 0-5 % Normal EO% 2.6 LAB L100.2500 0-1 % Normal BASO% 0.2 LAB L100.2550 0.0-0.9 % Normal IM GRAN % 0.300 Result Comment: IG% - Immature Granulocytes (promyelocytes, myelocytes and metamyelocytes) > 1% indicates that a LEFT SHIFT is Present. LAB L100.2620 2.0-7.7 X10 3/uL Normal Absolute Neut 4.1 LAB L100.2720 0.83-4.51 X10 3/ul Normal Absolute Lymph 1.47 Performed By: #### L100.0100 #### [facility] [address] [place], [place], [address] BASIC METABOLIC Collected: 09/29/2018 Status: F Source: [place] PROFILE ([facility] 5:10 AM [facility] REPOSITORY TYPE CODE TESTS RESULT OUT OF RANGE REFERENCE UNITS LAB L501.0100 74-106 mg/dL Normal GLU 78 Result Comment: Please note revised GLUCOSE reference range effective 2017. LAB L501.1000 7-18 mg/dL Low BUN 4 LAB L501.1100 0.55-1.02 mg/dL Normal CREAT,SERUM 0.64 Result Comment: The validity of the calculated GFR AND GFRAA in patients over 70 years has not been determined. Clinical correlation is essential. LAB L501.1110 >60 mL/min Normal EST GFR 95 Result Comment: Non- GFR Calc LAB L501.1115 >60 mL/min Normal EST GFR - AA 115 Result Comment: GFR Calc LAB L501.1255 ml/min Normal Estimated CRCL 33.21 LAB L501.1300 10-20 RATIO Low BUN/CRE 6.3 LAB L501.2200 8.5-10 mg/dL Normal .1 CA 8.6 LAB L501.5300 136-14 mmol/L Normal 5 NA 144 LAB L501.5600 3.5-5. mmol/L Normal 1 K 4.0 LAB L501.5900 98-107 mmol/L High CL 111 LAB L501.6100 21.0-3 mmol/L Normal 2.0 CO2 25.0 LAB L501.6200 5-15 Normal GAP 8 Performed By: #### L500.2500 #### [facility] [address] [place], [place], [address] CONSULTATION Observed: 09/28/2018 Status: F Source: [place] 9:01 AM [facility] REPOSITORY [facility] Medical Records Department [address] [place] [address] Consultation 09/28/18 0854 MR#: [id number] Acct: [id number] Name: MICHAEL MOLINA Rep #: [id number] : 1935 82 From: Reinier Souza MD PCP: Anyi Irving MD Status: ADM IN Location[place] [facility] [place] [id number] Problem List (1) Diverticulitis Status: Acute Reason for Consult Date of Consultation: 09/28/18 Reason for Consultation: Diverticulitis with abscess History of Present Illness: The patient is a 82 year old F who says she has been having a lot of abdominal pain. She says that she had a colonoscopy a year ago in [place] and this showed diverticulosis but no polyps. She complains of pain in her upper abdominal area as well as her lower area. She says she has been having runny stools and diarrhea. She denies any chills. She says she has never had diverticulitis in the past. 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 History of compression fracture of spine (Chronic) L1, january 29 Premature atrial contractions (Chronic) Mixed anxiety and depressive disorder (Chronic) Allergies difluprednate [From Durezol] Allergy (Verified 09/27/18 14:58) Other methylprednisolone Allergy (Verified 09/27/18 14:58) Rash Penicillins Allergy (Verified 09/27/18 14:58) Unknown prednisolone Allergy (Verified 09/27/18 14:58) Swelling citalopram Adverse Reaction (Verified 09/27/18 14:58) Diarrhea codeine Adverse Reaction (Verified 09/27/18 14:58) Nausea duloxetine HCl [From Cymbalta] Adverse Reaction (Verified 09/27/18 14:58) Diarrhea lamotrigine [From Lamictal] Adverse Reaction (Verified 09/27/18 18:56) DRUGGED FEELING metoclopramide HCl [From Reglan] Adverse Reaction (Verified 09/27/18 18:55) INVOLUNTARY BODY MOVEMENTS promethazine HCl [From Phenergan] Adverse Reaction (Verified 09/27/18 18:55) INVOLUNTARY BODY MOVEMENTS sertraline HCl [From Zoloft] Adverse Reaction (Verified 09/27/18 14:58) Diarrhea sulfamethoxazole [From Bactrim] Adverse Reaction (Verified 09/27/18 18:55) FELT WEIRD, HEAD NUMB, FELT DRUGGED, SHAKEY, NAUSEATED trimethoprim [From Bactrim] Adverse Reaction (Verified 09/27/18 18:56) FELT WEIRD, HEAD NUMB, FELT DRUGGED, SHAKEY, NAUSEATED Home Medications: Ambulatory Orders Medication Instructions Recorded Acetaminophen [Tylenol] 500 mg PO Q6H PRN PRN 03/29/16 Surgical History: cholecystectomy, hysterectomy - bladder and rectal repair., - - tonsillectomy. chorid melanoma surgery of left eye Psychiatric History: Depression APPLICATIONS SYSTEM ANALYST History: No pertinent APPLICATIONS SYSTEM ANALYST history Lives: Alone Smoking Status: Never smoker Tobacco Use: Cigarettes Alcohol: None Drugs: None - *Family History Maternal History Items: No pertinent history Paternal History Items: No pertinent history Review of Systems Constitutional: Reports: Fever. Denies: Anorexia, Chills HEENT: Denies: Difficulty Swallowing Cardiovascular: Denies: Chest Pain Respiratory: Denies: Cough Gastrointestinal: Reports: Abdominal Pain, Diarrhea. Denies: Nausea Genitourinary: Denies: Incontinence Musculoskeletal: Denies: Joint Tenderness Neurological: Denies: Balance problems Psychiatric: Denies: Anxiety, Depression Hematologic/ Lymphatic: Denies: Anemia Patient Problems: Active and Suspected Problems Diverticulitis (Acute) - Physical Exam General: Alert, Oriented x3, Cooperative HEENT: Atraumatic, PERRLA Neck: No JVD Lungs: Normal air movement Cardiovascular: Regular rate, Regular Rhythm Abdomen: Soft, Tender - Patient has tenderness in the left lower quadrant as well as the left upper quadrant and epigastric region Extremities: No edema Skin: No rashes Musculoskeletal: No Muscle Wasting Neurological: Cranial nerves II-XII grossly intact Psych/Mental Status: Normal Affect Vital Signs Temp Pulse Resp BP Pulse Ox 98.6 F 82 18 98/44 L 94 09/28/18 07:52 09/28/18 07:52 09/28/18 07:52 09/28/18 07:52 09/28/18 07:52 Oxygen Delivery Method Room Air Weight: 106 lb 14.787 oz Body Mass Index (BMI) 21.6 Finger Stick Blood Glucose 139 Intake and Output for Last 24 Hours Intake Total 1750 / 1750 Balance 1750 / 1750 Microbiology Past 72 Hours 09/27/18 17:00 Blood Culture - Preliminary Blood Culture (Wb) - Anticubital Left Laboratory Tests Past 24 Hrs WBC 13.3 H RBC 4.67 Hgb 13.1 Hct 41.2 MCV 88.2 MCH 28.1 MCHC 31.8 L RDW 13.7 RDW Differential 44.0 H WBC 9.2 RBC 3.89 L Hgb 11.0 L Hct 34.9 L MCV 89.7 MCH 28.3 MCHC 31.5 L RDW 13.6 RDW Differential 44.4 H WBC RBC Hgb Hct MCV MCH Clinical Impression(s) from Imaging Studies Abdomen/Pelvis CT 09/27/18 15:23 IMPRESSION: Acute sigmoid diverticulitis compensated by formation of a small adjacent abscess with prominent inflammation of the bowel segment wall. 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 No apparent obstructive lesion. Electronically Signed: Charles Gordon MD at 16:46 EST Tel , Service support , Chest X-Ray 09/27/18 16:28 IMPRESSION: There are findings consistent with COPD. There is no evidence of acute chest disease. Electronically Signed: Zhao Lantigua MD at 16:46 EST , Service support , Assessment/Plan All Active Problems Diverticulitis (Acute) 82-year-old female with diverticulitis and small abscess 1. The patient is a small abscess. 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 For now I would recommend not advancing past clear liquids and continuing IV antibiotics. If her pain worsens I would consider surgery. Patient reports she has never had diverticulitis in the past but given her Sjogren's disease she may warrant elective sigmoid colectomy in the future. 2. The patient is also complaining of epigastric and left upper quadrant pain. She says this is much worse if she does not get the eat. This is concerning for gastritis or peptic ulcer disease. I will add Carafate to her regimen. Reinier Souza MD Pager: [facility] [address] [place] [address] [address], [address] [place] [address] Office: 09/28/18 0901 <Electronically signed by Reinier Souza MD> Date Reinier Souza MD Cosigner Signature (if applicable): Date CC: Reinier Souza MD; Anyi Irving MD; Melida Cassidy Signed CBC W/DIFF, AUTOMATED Collected: 09/28/2018 Status: F Source: [place] 6:00 AM [facility] REPOSITORY TYPE CODE TESTS RESULT OUT OF RANGE REFERENCE UNITS LAB L100.1000 4.4-11.0 K/mm3 Normal WBC 9.2 LAB L100.1200 4.2-5.4 M/mm3 Low RBC 3.89 LAB L100.1300 12.0-15.0 g/dl Low HGB 11.0 LAB L100.1400 37-47 % Low HCT 34.9 LAB L100.1500 81-99 fL Normal MCV 89.7 LAB L100.1600 27.0-32.0 pg Normal MCH 28.3 LAB L100.1700 32-36 g/gl Low MCHC 31.5 LAB L100.1810 11.6-14.6 % Normal RDW CV 13.6 LAB L100.1820 35.1-43.9 fl High RDW SD 44.4 LAB L100.1900 150-450 K/mm3 Normal PLT 207 LAB L100.2000 6.2-12.0 fl Normal MPV 9.7 LAB L100.2100 47-70 % High NEUT% 72.7 LAB L100.2200 19-41 % Low LY% 15.7 LAB L100.2300 0-10 % High MONO% 10.2 LAB L100.2400 0-5 % Normal EO% 1.2 LAB L100.2500 0-1 % Normal BASO% 0.1 LAB L100.2550 0.0-0.9 % Normal IM GRAN % 0.100 Result Comment: IG% - Immature Granulocytes (promyelocytes, myelocytes and metamyelocytes) > 1% indicates that a LEFT SHIFT is Present. LAB L100.2620 2.0-7.7 X10 3/uL Normal Absolute Neut 6.7 LAB L100.2720 0.83-4.51 X10 3/ul Normal Absolute Lymph 1.45 Performed By: #### L100.0100 #### [facility] [address] [place], [address] BASIC METABOLIC Collected: 09/28/2018 Status: F Source: [place] PROFILE (BMP) 6:00 AM [facility] REPOSITORY TYPE CODE TESTS RESULT OUT OF RANGE REFERENCE UNITS LAB L501.0100 74-106 mg/dL Low GLU 70 Result Comment: Please note revised GLUCOSE reference range effective 2017. LAB L501.1000 7-18 mg/dL Low BUN 6 LAB L501.1100 0.55-1.02 mg/dL Normal CREAT,SERUM 0.64 Result Comment: The validity of the calculated GFR AND GFRAA in patients over 70 years has not been determined. Clinical correlation is essential. LAB L501.1110 >60 mL/min Normal EST GFR 95 Result Comment: Non- GFR Calc LAB L501.1115 >60 mL/min Normal EST GFR - AA 115 Result Comment: GFR Calc LAB L501.1255 ml/min Normal Estimated CRCL 33.21 LAB L501.1300 10-20 RATIO Low BUN/CRE 9.4 LAB L501.2200 8.5-10 mg/dL Low .1 CA 8.0 LAB L501.5300 136-14 mmol/L High 5 NA 147 LAB L501.5600 3.5-5. mmol/L Normal 1 K 4.0 LAB L501.5900 98-107 mmol/L High CL 112 LAB L501.6100 21.0-3 mmol/L Normal 2.0 CO2 26.0 LAB L501.6200 5-15 Normal GAP 9 Performed By: #### L500.2500 #### [facility] [address] [place], [address] EMERGENCY DEPARTMENT Observed: 09/27/2018 Status: F Source: [place] SUMMARY 10:11 PM [facility] REPOSITORY [facility] Medical Records Department [address] [place] [address] Emergency Department Summary 09/27/18 1525 MR#: [id number] Acct: [id number] Name: MICHAEL MOLINA Rep #: [id number] : 1935 82 From: Kate Bradley MD PCP: Anyi Irving MD Status: ADM IN - ER Visit Summary Date of Service: 09/27/18 Chief Complaint: abdominal pain History of Present Illness: The patient is a 82 F who presents for 1 month of abdominal pain. Patient has been having a progressively worsening soreness in her general upper abdomen with a bloated feeling. 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 She has worsening pain with walking or sitting upright. She has nausea without vomiting, decreased appetite, decreased oral intake due to nausea, decreased urine output and post void pain when urinating. She states that the urination symptoms have been ongoing. She has a history of irritable bowel syndrome with alternating diarrhea and constipation. She has not had a bowel movement for 2 days. No fever, chest pain, shortness of breath. Patient has Sjogren's syndrome and ray nods as well as multiple other medical problems. She is on Percocet for chronic back pain. She states the Percocet has helped somewhat with the abdominal pain. Physical Examination: Vital signs: afebrile, hemodynamically stable, no hypoxia on room air General: well nourished, well developed, in no distress Skin: warm, dry, no rash, no pallor HEENT: normocephalic and atraumatic; PERRL, EOMI, dry mucous membranes Cardiovascular: Tachycardic rate and rhythm without murmurs, no peripheral edema, 2+ pulses all distal extremities Respiratory: No increased work of breathing, lungs are clear to auscultation bilaterally, no rales, rhonchi or wheezing Abdominal: Abdomen is soft, tender to light palpation in the epigastrium and periumbilical region, bilateral upper quadrants, withhyperactive bowel sounds, no guarding or rebound, no masses MSK: Moves all extremities, no deformities, normal strength Neuro: Awake and alert, oriented 4. No facial droop, sensation and motor function intact and symmetric Test Results: Abnormal Lab Results WBC 13.3 H RBC 4.67 Hgb 13.1 Hct 41.2 MCV 88.2 MCH 28.1 MCHC 31.8 L RDW 13.7 RDW Differential 44.0 H WBC RBC Hgb Hct MCV MCH MCHC RDW RDW Differential Plt Count MPV Immature Gran % (Auto) Neut % (Auto) Lymph % (Auto) Clinical Impression(s) from Imaging Studies Abdomen/Pelvis CT 09/27/18 15:23 IMPRESSION: Acute sigmoid diverticulitis compensated by formation of a small adjacent abscess with prominent inflammation of the bowel segment wall. 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 No apparent obstructive lesion. Electronically Signed: Charles Gordon MD at 16:46 EST Tel , Service support , Chest X-Ray 09/27/18 16:28 IMPRESSION: There are findings consistent with COPD. There is no evidence of acute chest disease. Electronically Signed: Zhao Lantigua MD at 16:46 EST , Service support , Medications Given Sodium Chloride () 1,000 mls @ 1,000 mls/hr IV .Q1H ONE Stop: 09/27/18 16:21 Last Admin: 09/27/18 15:50 Dose: 1,000 mls/hr Ciprofloxacin (Cipro) 400 mg in 200 mls @ 200 mls/hr IV X1 ONE Stop: 09/27/18 17:56 Last Admin: 09/27/18 17:50 Dose: 200 mls/hr Metronidazole (Flagyl) 500 mg in 100 mls @ 100 mls/hr IV X1 ONE Stop: 09/27/18 17:56 Last Admin: 09/27/18 19:14 Dose: Not Given Morphine Sulfate () 4 mg IV X1 ONE Stop: 09/27/18 15:23 Last Admin: 09/27/18 15:48 Dose: 4 mg Ondansetron HCl (Zofran) 4 mg IV X1 ONE Stop: 09/27/18 15:23 Last Admin: 09/27/18 15:48 Dose: 4 mg Emergency Department Course and Treatment: Examination of patient's notes from her doctor from 1 week ago shows that patient was advised dietary modifications and if those did not work that she would require workup for possible small bowel obstruction. Patient was seen by her primary care doctor today who sent patient in for further examination due to her symptoms. Given IV fluids for hydration. She was given morphine and Zofran for symptomatic relief. Labs performed, and EKG and troponin included given the patient is having epigastric complaints. CT abdomen and pelvis performed. Patient had a leukocytosis of 13.3. Hepatic function and electrolytes were remarkable only for potassium of 3.2. Lactate within normal limits at 1.2. Troponin negative. EKG showed sinus rhythm with no ischemia or ectopy. Chest x-ray was consistent with COPD but had no active acute processes. CT of the abdomen and pelvis showed sigmoid diverticulitis with an abscess and bowel wall inflammation. Patient was started on Cipro and metronidazole. Patient was discussed with Dr. Souza, who will provide surgical consult on the patient. She was admitted to the hospitalist for further management of sigmoid diverticulitis with abscess. Treatment Plan: [] Disposition: [] Impression: Acute sigmoid diverticulitis with abscess This note was generated with [employer] dictation software. It may contain incorrect words, spelling, and punctuation that were not noted in review of the chart prior to signing ED Disposition - Plan for ED Patient: Disposition: [facility] Chief Complaint: Abd Pain What to do if you have Problems For any increased pain, shortness of breath, bleeding, nausea or vomiting, chest pain, or any unexpected problems, contact your Primary Care Provider. Call [facility] ([phone]) or report to the closest Emergency Room. Call 911 if necessary. 09/27/18 2211 <Electronically signed by Kate Bradley MD> Date Kate Bradley MD Cosigner Signature (If Indicated): Date CC: Anyi Irving MD HISTORY AND PHYSICAL Observed: 09/27/2018 Status: F Source: [place] EXAM 7:06 PM [facility] REPOSITORY [facility] Medical Records Department [address] [place] [address] History and Physical 09/27/18 1848 MR#: [id number] Acct: [id number] Name: MICHAEL MOLINA Rep #: [id number] : 1935 82 From: Melida Cassidy MD PCP: Anyi Irving MD Status: ADM IN Y Location: [facility] [place] PN659-5 Problem List (1) Sjogrens syndrome Status: Chronic (2) Osteoporosis Status: Chronic (3) Osteoarthritis Status: Chronic (4) RLS (restless legs syndrome) Status: Chronic (5) Ankylosing spondylitis Status: Chronic (6) Choroid melanoma of left eye Status: Chronic Comment: patient had surgery/radiation. 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 The patient is a 82 year old F with past medical history as mentioned above presented to the emergency room because of abdominal pain. Her symptoms started around 1 week ago with abdominal pain, in the lower part of the abdomen, dull aching pain, intermittent, 8 out of 10 in severity, sometimes tends to be more severe on the left lower quadrant, associated with nausea without vomiting, radiates to the epigastric region aggravated by standing and walking and without relieving factors. She mentioned that she has been having this abdominal pain for almost a month but started to get worse over the last 5-6 days. Around 1 month ago, she saw her pipe fitter [employer] who performed colonoscopy on her in the last several months and she was found to have extensive diverticulosis according to the patient, no documents available. Today, she went to her PCPs office who transferred her to ED for evaluation. She denied fever or chills but she was told that she has low-grade fever at her PCPs office. She has been having constipation and diarrhea alternating because of history of IBS but nothing unusual. In the emergency department, she was afebrile, slightly tachycardic, blood pressure was stable and pulse ox was maintained on room air. Her routine blood work was remarkable for leukocytosis and potassium of 3.2, otherwise normal. Her LFT and lipase were normal. Lactic acid was normal. Troponin was negative. Urine analysis revealed no evidence of infection. EKG revealed normal sinus rhythm without evidence of acute ischemic changes or cardiac arrhythmias. CT scan abdomen and pelvis with contrast revealed acute sigmoid diverticulitis with small adjacent abscess. Chest x-ray showed no acute findings. She is being admitted for acute sigmoid diverticulitis with small abscess complicated by sepsis. 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 History of compression fracture of spine (Chronic) L1, january 29 Premature atrial contractions (Chronic) Mixed anxiety and depressive disorder (Chronic) Allergies difluprednate [From Durezol] Allergy (Verified 09/27/18 14:58) Other methylprednisolone Allergy (Verified 09/27/18 14:58) Rash Penicillins Allergy (Verified 09/27/18 14:58) Unknown prednisolone Allergy (Verified 09/27/18 14:58) Swelling citalopram Adverse Reaction (Verified 09/27/18 14:58) Diarrhea codeine Adverse Reaction (Verified 09/27/18 14:58) Nausea duloxetine HCl [From Cymbalta] Adverse Reaction (Verified 09/27/18 14:58) Diarrhea lamotrigine [From Lamictal] Adverse Reaction (Verified 09/27/18 14:58) Other DRUGGED FEELING metoclopramide HCl [From Reglan] Adverse Reaction (Verified 09/27/18 14:58) Other INVOLUNTARY BODY MOVEMENTS promethazine HCl [From Phenergan] Adverse Reaction (Verified 09/27/18 14:58) Other INVOLUNTARY BODY MOVEMENTS sertraline HCl [From Zoloft] Adverse Reaction (Verified 09/27/18 14:58) Diarrhea sulfamethoxazole [From Bactrim] Adverse Reaction (Verified 09/27/18 14:58) Other FELT WEIRD, HEAD NUMB, FELT DRUGGED, SHAKEY, NAUSEATED trimethoprim [From Bactrim] Adverse Reaction (Verified 09/27/18 14:58) Other FELT WEIRD, HEAD NUMB, FELT DRUGGED, SHAKEY, NAUSEATED Home Medications: Ambulatory Orders Medication Instructions Recorded Acetaminophen [Tylenol] 500 mg PO Q6H PRN PRN 03/29/16 Surgical History: cholecystectomy, hysterectomy - bladder and rectal repair., - - tonsillectomy. chorid melanoma surgery of left eye Psychiatric History: Depression APPLICATIONS SYSTEM ANALYST History: No pertinent APPLICATIONS SYSTEM ANALYST history Lives: Alone Smoking Status: Never smoker Tobacco Use: Cigarettes Alcohol: None Drugs: None - *Family History Maternal History Items: No pertinent history Paternal History Items: No pertinent history Review of Systems Constitutional: Reports: Anorexia, Weakness. Denies: Chills, Fever Eyes: Denies: Blurred vision, Double vision, Drainage, Redness HEENT: Denies: Difficulty Hearing, Ear Pain, Eye Pain, Nasal Congestion, Sore Throat Cardiovascular: Denies: Chest Pain, Chest Pressure, Edema, Light Headedness, Palpitations, Syncope Respiratory: Denies: Cough, Pleuritic Pain, Shortness of Breath, Shortness of breath at rest, Sputum production, Wheezing Gastrointestinal: Reports: Abdominal Pain, Constipation, Diarrhea, Nausea. Denies: Melena, Vomiting Genitourinary: Denies: Dysuria, Frequency, Hematuria Musculoskeletal: Denies: Arm Pain, Back Pain, Foot Pain Skin: Denies: Dryness, Rash Neurological: Denies: Balance problems, Double vision, Change in Speech, Slurred speech, Confusion, Headaches, Incoordination Psychiatric: Reports: Anxiety, Depression Endocrine: Denies: Change in Body Habitus, Polydipsia VTE Information - Inpt Only VTE Present on Admission: No VTE Mechan Device Prophylaxis: None VTE Pharm Prophylaxis ordered?: Yes - Physical Exam General: Alert, Oriented x3, Cooperative, No apparent distress HEENT: Atraumatic, PERRLA, EOMI, Normocephalic Oral: Moist Mucosa, No Gingival or Mucosal Lesions/ Ulcerations Neck: Supple, No JVD, Negative Carotid Bruits, Trachea Midline, Thyroid Normal Size and Texture Lungs: Clear to auscultation, No rhonchi, No wheeze, No rales, Diminished Cardiovascular: Regular rate, Regular Rhythm, Normal S1, Normal S2, PMI Normal Abdomen: Bowel Sounds Present, Soft, Non-Distended, No Hepato- splenomegaly, Tender - Generalized tenderness, no guarding or rigidity. Extremities: No clubbing, No cyanosis, No edema Skin: No rashes, No breakdown Lymphatic: No Cervical, Supraclavicular, or Inguinal Adenopathy Neurological: Cranial nerves II-XII grossly intact, Motor Exam 5/5 strength throughout Psych/Mental Status: Normal Affect, Appropriate, Alert and oriented to time, place, person, mood and affect Vital Signs Temp Pulse Resp BP Pulse Ox 97.9 F 89 16 135/70 H 97 09/27/18 14:58 09/27/18 17:00 09/27/18 17:00 09/27/18 17:00 09/27/18 17:00 Oxygen Delivery Method Room Air Weight: 106 lb 14.787 oz Body Mass Index (BMI) 21.6 Finger Stick Blood Glucose 139 Laboratory Tests Past 24 Hrs WBC 13.3 H RBC 4.67 Hgb 13.1 Hct 41.2 MCV 88.2 MCH 28.1 MCHC 31.8 L WBC RBC Hgb Hct MCV MCH MCHC RDW RDW Differential Plt Count Clinical Impression(s) from Imaging Studies Abdomen/Pelvis CT 09/27/18 15:23 IMPRESSION: Acute sigmoid diverticulitis compensated by formation of a small adjacent abscess with prominent inflammation of the bowel segment wall. 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 No apparent obstructive lesion. Electronically Signed: Charles Gordon MD at 16:46 EST Tel , Service support , Chest X-Ray 09/27/18 16:28 IMPRESSION: There are findings consistent with COPD. There is no evidence of acute chest disease. Electronically Signed: Zhao Lantigua MD at 16:46 EST , Service support , Assessment/Plan This is an 82 years old female patient presented to the emergency room because of abdominal pain, anorexia with nausea and she was found to have acute sigmoid diverticulitis with small abscess as well as sepsis and she is being admitted for treatment. #1 acute sigmoid diverticulitis/small abscess/sepsis: CT scan abdomen and pelvis reviewed as above. Patient is tachycardic, have leukocytosis which is consistent with sepsis. Lactic acid was normal. Plan: Admit to [facility] floor, cardiac monitoring, keep on clear liquids, IV fluids with potassium replacement, start IV Flagyl and ciprofloxacin, repeat CBC and BMP tomorrow morning, general surgery consult, PT OT evaluation and treatment. #2 Sjogren's syndrome: Continue cyclosporine eyedrops, Plaquenil and pilocarpine. #3 ankylosing spondylitis: Stable, continue gabapentin, Plaquenil and start IV morphine as needed as well as Tylenol as needed. #4 restless leg syndrome: Continue Mirapex and venlafaxine. #5 anxiety/depression: Continue clonazepam, melatonin and venlafaxine. #6 DVT prophylaxis: Subcu Lovenox. Other chronic medical problems: #1 osteoarthritis. #2 osteoporosis. #3 choroid melanoma of the left eye. #4 compression fracture of the spine. This note was generated with [employer] dictation software. It may contain incorrect words, spelling, and punctuation that were not noted in checking the note before signing. Code Visit Inpatient E AND M: [id number] Init Hosp L3 09/27/18 1906 <Electronically signed by Melida Cassidy MD> Date Melida Cassidy MD Cosigner Signature: Date (if applicable) CC: Anyi Irving MD; Melida Cassidy Signed Observed: 09/27/2018 Status: F Source: [place] CULTURE, BLOOD (WB) 5:00 PM [facility] REPOSITORY AEROBIC BOTTLE: GRAM POSITIVE COCCI COLLECTED 09/27/18 1700 ANAEROBIC BOTTLE: No growth in 48 hours. CALLED TO MIGUEL JASSO 09/28/18 8652 Chelsea Steele. REPORT READ BACK BY SAME. 2 DIFFERENT TYPES OF STREPTOCOCCUS Clinical correlation necessary, Possible skin contamination. No anaerobic bacteria isolated. ORGANISM 1: Streptococcus mitis/ oralis Amount Growth Growth ORGANISM 2: Strep salivarius sp salivarius Amount Growth Growth Streptococcus mitis/ oralis: REACTION Ampicillin $ 1 I Benzylpenicillin NF 0.25 I Cefotaxime $ <=0.12 S Ceftriaxone $ <=0.12 S Clindamycin $$ >=1 R Erythromycin $ 4 R Linezolid $$$$ <=2 S Vancomycin $ 0.5 S (NF) indicates non-formulary drug at [facility]. Approval by Infectious Disease Specialist required before non-formulary drugs may be ordered and/or dispensed. * CLSI guidelines does not recommend testing of cephalosporins. This interpretation is deduced from Beta-lactam/penicillin results. Strep salivarius sp salivarius: REACTION Ampicillin $ 4 I Benzylpenicillin NF 0.25 I Cefotaxime $ <=0.12 S Ceftriaxone $ 0.25 S Clindamycin $$ >=1 R Erythromycin $ >=8 R Linezolid $$$$ <=2 S Vancomycin $ 1 S (NF) indicates non-formulary drug at [facility]. Approval by Infectious Disease Specialist required before non-formulary drugs may be ordered and/or dispensed. * CLSI guidelines does not recommend testing of cephalosporins. This interpretation is deduced from Beta-lactam/penicillin results. Performed By: #### M200.1000, M100.636 #### [facility] [address] [place], [place], [address] Observed: 09/27/2018 Status: F Source: [facility] GPC ID 5:00 PM [facility] REPOSITORY GPC ID Staphylococcus sp. Not Detected Enterococcus sp. Not Detected Streptococcus spp. Streptococcus sp. (NOT S. pneumoniae) Listeria spp Not Detected Adama/vanB Not Detected mecA Not Detected NAAT METHOD Testing was performed using nucleic acid amplification ORGANISM 1: Strep not Strep pneumo Performed By: #### M200.1000, M100.636 #### [facility] [address] [place], [place], [address] Observed: 09/27/2018 Status: F Source: [place] CULTURE, BLOOD (WB) 5:00 PM [facility] REPOSITORY BC No growth in 5 days. Performed By: #### M200.1000 #### [facility] [address] [place], [place], [id number] URINALYSIS, COMPLETE Collected: 09/27/2018 Status: F Source: [place] 4:15 PM [facility] REPOSITORY Order Comment: How was Urine Obtained? CLEAN CATCH TYPE CODE TESTS RESULT OUT OF RANGE REFERENCE UNITS LAB L400.3000 Yellow COLOR Normal Straw LAB L400.3050 Clear Normal CLARITY Clear LAB L400.3200 Normal mg/dl Normal GLUCOSE, UR Normal LAB L400.3300 Negative mg/dL Normal BILIRUBIN URINE Negative LAB L400.3400 Negative mg/dl Normal KETONE UR Negative LAB L400.3465 1.002-1.030 Normal SP.GR. DIPSTX 1.010 LAB L400.3550 5.0 - 8.0 pH UR Normal 7.0 LAB L400.3600 Negative mg/dl PROT Normal DIPSTX Negative LAB L400.3700 Normal mg/dl Normal UROBILI Normal LAB L400.3750 Negative Normal NITRITE UR Negative LAB L400.3780 Negative /ul High 25 OCCULT BLOOD-UR LAB L400.3800 Negative /ul High LEUK 25 ESTERASE LAB L400.4050 0-5 /hpf WBC Normal 0-5 SEEN LAB L400.4100 0-5 /hpf 0 Normal RBC-UA SEEN LAB L400.4150 5-10 /hpf SQUAM 0 Normal EPI SEEN LAB L400.4300 None Seen /hpf 0 Normal BACTERIA SEEN LAB L400.4350 <or=2+ /hpf 0 Normal MUCUS, URINE SEEN Performed By: #### L400.0001 #### [facility] [address] [place], [address] Observed: 09/27/2018 Status: F Source: [place] CULTURE, URINE 4:15 PM [facility] REPOSITORY Order Date: 09/28/18 Comments: please use sample provided for UA if possible. Urine Culture Below infection level. ORGANISM 1: Mixed Gram Pos AND Gram Neg Org [place] Count <1000 MIX CULTURE Mixed contaminants. Submit a new specimen if indicated. Performed By: #### M100.0650 #### [facility] [address] [place], [address] ABDOMEN/PELVIS W IV CONT Observed: 09/27/2018 Status: F Source: [place] ONLY 3:25 PM [facility] REPOSITORY [facility] Imaging Services [address] [place] [address] Abdomen/Pelvis W IV Cont ONLY MR#: [id number] Acct: [id number] Name: MICHAEL MOLINA Rep #: [id number] : 1935 F 82 From: Charles Gordon MD PCP: Anyi Irving MD Status: REG ER Study: Abdomen/Pelvis W IV Cont ONLY Date of Exam: 09/27/18 Exam# [id number] Ordering Dr: Kate Bradley MD STUDY: CT ABDOMEN AND PELVIS WITH CONTRAST REASON FOR EXAM: Female, 82 years old. Abdominal pain RADIATION DOSAGE (If Supplied By Facility): CTDIvol = ( 10.30 ) mGy, DLP = ( 516.18 ) mGycm TECHNIQUE: Transaxial images were obtained from the dome of the diaphragm to the symphysis pubis without oral contrast. 75 ml of Isovue 300 contrast was administered. Sagittal and coronal images were reconstructed. Individualized dose optimization techniques were used for this CT. COMPARISON: None. FINDINGS: Body wall soft tissues: No acute process. Osseous structures: Multilevel lumbar spondylosis with evidence of at least mild foraminal narrowing in the low lumbar spine at multiple levels. Inferior chest: Lung bases clear. No significant cardiomegaly. Normal distal esophagus. Hepatobiliary: Cholecystectomy. Mild intrahepatic biliary ductal ectasia. Ectatic hepatic duct and common bile duct, the hepatic duct measuring up to 11 mm and the common bile duct within the head of the pancreas approximately 8.5 mm tapering toward the sphincter with no filling defect. Pancreas: No suspicious pancreatic lesion. Mild ductal ectasia. Spleen: Splenic calcifications consistent with old granulomatous disease. Adrenal glands: Normal. Urogenital: Benign bilateral renal cysts Bosniak category 1 simple cystic features. Largest on the left measuring 1.2 cm. Normal collecting systems, ureters, urinary bladder. Uterus absent. No adnexal mass or cyst. Pelvic floor and sidewalls and retroperitoneum: No mass or adenopathy. Vasculature: Mild atherosclerosis. Stomach: No acute process. Small bowel and mesentery: No acute process. Large bowel: The appendix is not clearly visible. There are no acute inflammatory features in the region of the cecum. Small stool burden of the large bowel. Diverticulosis of the proximal to distal sigmoid. Acute diverticulitis with abscess distal sigmoid in the central deep pelvis. The abscess protrudes from the margin of the bowel and measures approximately 1.4 cm in diameter. There is prominent circumferential thickening and inflammation of the adjacent bowel wall over a segment measuring approximately 6.3 cm in length. The rectum is normal. There is no evidence of free perforation. Free fluid or free air: None. CT/Abdomen/Pelvis W IV Cont ONLY IMPRESSION: Acute sigmoid diverticulitis compensated by formation of a small adjacent abscess with prominent inflammation of the bowel segment wall. 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 No apparent obstructive lesion. Electronically Signed: Charles Gordon MD at 16:46 EST Tel , Service support , CC: Anyi Irving MD; Kate Bradley MD [employer] Associate: Signed CHEST PA AND LATERAL Observed: 09/27/2018 Status: F Source: [place] 3:25 PM [facility] REPOSITORY [facility] [place] [address] Chest PA and Lateral MR#: [id number] Acct: [id number] Name: MICHAEL MOLINA Rep #: [id number] : 1935 F 82 From: Zhao Lantigua MD PCP: Anyi Irving MD Status: REG ER Study: Chest PA and Lateral Date of Exam: 09/27/18 Exam# [id number] Ordering Dr: Kate Bradley MD STUDY: X-RAY CHEST REASON FOR EXAM: Female, 82 years old. Chest pain TECHNIQUE: Frontal and lateral views of the chest. COMPARISON: 04/05/2017. FINDINGS: There is hyperinflation of the lungs consistent with chronic obstructive lung disease (COPD). No infiltrates or effusions. There is no demonstrated pleural abnormality. Normal size heart. Normal mediastinum and anna. Normal visualized pulmonary arteries. Normal visualized aortic arch and descending thoracic aorta. There are diffuse degenerative changes of the visualized thoracic spine. Stable compression fracture of the mid thoracic spine. Normal visualized ribs, clavicles, and shoulders. There is no demonstrated abnormality of the visualized soft tissue structures of the upper abdomen. RAD/Chest PA and Lateral IMPRESSION: There are findings consistent with COPD. There is no evidence of acute chest disease. Electronically Signed: Zhao Lantigua MD at 16:46 EST , Service support , CC: Anyi Irving MD; Kate Bradley MD Funeral [employer] Associate: Signed PROGRESS Observed: 09/27/2018 Status: COMPLETED Source: [place] 2:12 PM [facility] REPOSITORY HNO ID: [id number] Author: Anyi Irving Service: (none) Author Type: Physician Type: Progress Notes Filed: 09/27/2018 6:31 PM Note Text: Reason for Visit Patient presents with: Pain: lower abd seen GI a week ago and said was bloating Michael Molina is a 82 year old female who presents here today for Above Complaints.. Health Maintenance There are no preventive care reminders to display for this patient. HPI Has been having pain and bloating in the past few days, and notes today that she feels very poorly, notes she was sick before and after the year end and the beginning of the next. The nausea is not getting better. Has been eating very little , the whole of yesterday Grass soup and crackers, she is not drinking enough water, her pills was water. She tries to drink a full cup when she eats. Today she had some gluten free rice chex for BF and almond milk and she had some mashed potatoes and a few grapes. Not drinking enough water, she feels sicker. Her bp is on the lower side and the HR is higher at 100 bears per minute. Notes she has been having belly pain, it hurts to walk for the past 3/4 days, she is having constipation and diarrhea, alternating, she went to see GI last week, but thinks she may be worse now She has not energy. . No problem-specific Assessment AND Plan notes found for this encounter. 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) - Bleeding ulcer - Bowel trouble 04/2003 4 BM's in month - Bronchitis 2014 - Cataract left eye - Colitis lymphocytic - Crohn's disease (HCC) - Dental caries - Depression - Diverticulosis - Dyslipidemia - Dysuria - Exanthematous disorder - Eye cancer (HCC) - Fibromyalgia 1991 - Gastroesophageal reflux disease - Glossodynia - Hand joint pain - High cholesterol - History of pneumonia as a child - Hyperlipidemia - Increased frequency of urination - 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 scc called [facility] - Sjogren's disease (HCC) [facility] - Sjogren's disease (HCC) 2005 - Tear film insufficiency - Urinary tract infectious disease - Vitamin D deficiency - Vitamin D deficiency PAST SURGICAL HISTORY Procedure Laterality Date - APPENDECTOMY 1954 [place] - APPENDECTOMY - BACTERIAL AG DETECT CSF () 193 - CHOLECYSTECTOMY 05/07/2005 Dr.Robert Nam - CLIN DEPRESSION SCREEN DOC - COLONOSCOPY 11/2010 polyps, inflammation - CT ABDOMEN - CYSTOSCOPY 01/19/2008 - [facility] DIAGNOSTIC OR THERA - IPAS - EKG 05/11/2015 SR with [facility] - ENDOSCOPY PROC 1977 [place] - EYE SURGERY PROCEDURE 12-07-2015 Pars plana vitrectomy, endolaser, air fluid exchange, left eye - HYSTERECTOMY HX 03/18/2002 Dr.Mark Shah - LAP REPAIR BLADDER INJURY 03/18/2002 - MRI BRAIN W AND W/O - PAST SURGICAL HISTORY OF 07/2014 squamous cell exc rt. 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 - PULMONARY FUNCTION TEST 01/04/2014 - RECTAL REPAIR W OR W/O MESH 03/18/2002 - REMOVAL ADENOIDS,PRIMARY,<12 Y/O Adenoidectomy - REMOVAL OF TONSILS,<12 Y/O Tonsillectomy - RETROGRADE PYELOGRAM 01/19/2008 bilateral - SPINAL FLUID TAP, DIAGNOSTIC [facility] - TONSILLECTOMY HX 04/03/42 [facility] - VAGINAL HYSTERECTOMY W/VAGINAL/BLADDER REP 2001 A/P repair - VITRECTOMY,MECHANICAL Left 12/07/2015 PPV (Pars Plana Vitrectomy) FAMILY HISTORY Problem Relation Age of Onset - Diabetes Father - Heart Father - Stroke Father - Cataract Father - Cataract Mother - other (parkinson's) Mother - Diabetes Paternal Aunt - Diabetes Paternal Uncle - Breast Cancer Sister - other (sarcoidosis) Daughter Social History Substance Use Topics - Smoking status: Never Smoker - Smokeless tobacco: Never Used - Alcohol use No Past medical history, appointments, medications, allergies reviewed. Pertinent Lab/Diagnostic Studies are reviewed and discussed today Current Outpatient Prescriptions: - oxyCODONE-acetaminophen (PERCOCET) 5-325 mg tablet - venlafaxine ER (EFFEXOR XR) 150 mg 24 hr capsule - atorvastatin (LIPITOR) 10 mg tablet - clonazePAM (KLONOPIN) 0.5 mg tablet - gabapentin (NEURONTIN) 300 mg capsule - Benzonatate 200 mg capsule - hydroxychloroquine (PLAQUENIL) 200 mg tablet - pilocarpine (SALAGEN, PILOCARPINE,) 5 mg tablet - ergocalciferol, vitamin D2, (VITAMIN D) 50,000 unit capsule - fluticasone (FLONASE) 50 mcg/actuation nasal spray - clindamycin (CLEOCIN) 150 mg capsule - PEG 400-propylene glycol (SYSTANE) 0.4-0.3 % ophthalmic solution - melatonin 3 mg - ondansetron orally disintegrating (ZOFRAN ODT) 4 mg disintegrating tablet - BENEFIBER, WHEAT DEXTRIN, ORAL - omeprazole (PRILOSEC) 20 mg capsule - COMPOUNDED PRESCRIPTION - aspirin, enteric coated (ASPIRIN, ENTERIC COATED) 81 mg EC tablet - Calcium Carbonate (CALCIUM ANTACID) 320 mg (750 mg) chew - Calcium Citrate-Vitamin D3 (CITRACAL+D) 315-250 mg-unit tab - Flaxseed Oil oil - Multivitamins-Iron tab - Saliva Substitution Combo No.5 (NEUTRASAL) 538 mg pwpk - VITAMIN B COMPLEX ORAL - docusate sodium (COLACE) 100 mg capsule - polyethylene glycol 3350 (MIRALAX) 17 gram/dose powder - cycloSPORINE (RESTASIS) 0.05 % ophthalmic emulsion - camphor-menthol (SARNA ANTI-ITCH) lotion - pramipexole (MIRAPEX) 0.25 mg tablet Review of Systems CONSTITUTIONAL: No fevers, chills night sweats, unintended weight loss CARDIOVASCULAR: No chest pain, dyspnea, palpitations, orthopnea, PND, ankle edema. PULM: No dyspnea, unexplained cough. GI: No dysphagia/odynophagia, problematic reflux, constipation, diarrhea, changes in stool habits, hematochezia, melena. : No new urinary complaints, including dysuria, gross hematuria or pyuria. NEURO: No new balance problems, peripheral weakness/paresthesias or numbness of concern. Physical Exam BP 100/64 Pulse 100 Temp 37.7 ?C (99.8 ?F) Resp 20 Wt 48.1 kg (106 lb) SpO2 97% BMI 21.41 kg/m? General appearance: Well appearing, alert, in no acute distress, well nourished. Skin: Skin color, texture, turgor normal, no suspicious rashes or lesions Head: Normocephalic, no masses, lesions, tenderness or abnormalities Eyes: Anicteric sclera. Pupils are equally round and reactive to light. Extraocular movements are intact. Lungs: Lungs clear to auscultation. No wheezing, rhonchi, rales Heart: RRR without murmur, gallop, or rubs. Abdomen: rounded, distended, tender all over, patient did not like to be palpated deeply , no hepatosplenomegaly or masses, increased bowel sounds in all quadrants. ASSESSMENT/PLAN: 1. Dehydration - ICD9: 276.51, ICD10: E86.0 (primary diagnosis) Advised the patient to go to the Er 2. Small bowel obstruction (HCC) - ICD9: 560.9, ICD10: K56.609 3. Abdominal pain, unspecified abdominal location - ICD9: 789.00, ICD10: R10.9 ? Small bowel obstruction 4. Spondylosis of lumbar region without myelopathy or radiculopathy - ICD9: 721.3, ICD10: M47.816 refilled - OXYCODONE-ACETAMINOPHEN 5 MG-325 MG TABLET ANYI IRVING MD PROGRESS Observed: 09/27/2018 Status: COMPLETED Source: [place] 2:09 PM [facility] REPOSITORY HNO ID: [id number] Author: Anyi Irving Service: (none) Author Type: Physician Type: Progress Notes Filed: 09/27/2018 6:31 PM Note Text: . JUANCARLOS Observed: 09/27/2018 Status: COMPLETED Source: [place] 1:40 PM [facility] REPOSITORY Office Visit (INTMWS) MOLINA,MICHAEL Y ([id number]) 1935 F Date Time Provider Department 09/27/18 1:40 PM ANYI IRVING During your visit today, we recorded the following information about you: Temperature Pulse Respiration Blood pressure 99.8 degrees 100/minute 20/minute 100/64 Weight 48.1 kg ANYI IRVING MD 09/27/2018 6:31 PM Signed . ANYI IRVING MD 09/27/2018 6:31 PM Signed Reason for Visit Patient presents with: Pain: lower abd seen GI a week ago and said was bloating Michael Molina is a 82 year old female who presents here today for Above Complaints.. Health Maintenance There are no preventive care reminders to display for this patient. HPI Has been having pain and bloating in the past few days, and notes today that she feels very poorly, notes she was sick before and after the year end and the beginning of the next. The nausea is not getting better. Has been eating very little , the whole of yesterday Mrs Thomas soup and crackers, she is not drinking enough water, her pills was water. She tries to drink a full cup when she eats. Today she had some gluten free rice chex for BF and almond milk and she had some mashed potatoes and a few grapes. Not drinking enough water, she feels sicker. Her bp is on the lower side and the HR is higher at 100 bears per minute. Notes she has been having belly pain, it hurts to walk for the past 3/4 days, she is having constipation and diarrhea, alternating, she went to see GI last week, but thinks she may be worse now She has not energy. . No problem-specific Assessment AND Plan notes found for this encounter. 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) - Bleeding ulcer - Bowel trouble 04/2003 4 BM's in month - Bronchitis 2014 - Cataract left eye - Colitis lymphocytic - Crohn's disease (HCC) - Dental caries - Depression - Diverticulosis - Dyslipidemia - Dysuria - Exanthematous disorder - Eye cancer (HCC) - Fibromyalgia 1991 - Gastroesophageal reflux disease - Glossodynia - Hand joint pain - High cholesterol - History of pneumonia as a child - Hyperlipidemia - Increased frequency of urination - 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 scc called [facility] - Sjogren's disease ([facility]) [facility] - Sjogren's disease ([facility]) 2005 - Tear film insufficiency - Urinary tract infectious disease - Vitamin D deficiency - Vitamin D deficiency PAST SURGICAL HISTORY Procedure Laterality Date - APPENDECTOMY 1954 [place] - APPENDECTOMY - BACTERIAL AG DETECT CSF () 1936 - CHOLECYSTECTOMY 05/07/2005 Dr.Robert Nam - CLIN DEPRESSION SCREEN DOC - COLONOSCOPY 11/2010 polyps, inflammation - CT ABDOMEN - CYSTOSCOPY 01/19/2008 - [facility] DIAGNOSTIC OR THERA - IPAS - EKG 05/11/2015 SR with [place] - ENDOSCOPY PROC 1977 [place] - EYE SURGERY PROCEDURE 12-07-2015 Pars plana vitrectomy, endolaser, air fluid exchange, left eye - HYSTERECTOMY HX 03/18/2002 Dr.Mark Shah - LAP REPAIR BLADDER INJURY 03/18/2002 - MRI BRAIN W AND W/O - PAST SURGICAL HISTORY OF 07/2014 squamous cell exc rt. 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 - PULMONARY FUNCTION TEST 01/04/2014 - RECTAL REPAIR W OR W/O MESH 03/18/2002 - REMOVAL ADENOIDS,PRIMARY,<12 Y/O Adenoidectomy - REMOVAL OF TONSILS,<12 Y/O Tonsillectomy - RETROGRADE PYELOGRAM 01/19/2008 bilateral - SPINAL FLUID TAP, DIAGNOSTIC [facility] - TONSILLECTOMY HX 04/03/42 [facility] - VAGINAL HYSTERECTOMY W/VAGINAL/BLADDER REP 2001 A/P repair - VITRECTOMY,MECHANICAL Left 12/07/2015 PPV (Pars Plana Vitrectomy) FAMILY HISTORY Problem Relation Age of Onset - Diabetes Father - Heart Father - Stroke Father - Cataract Father - Cataract Mother - other (parkinson's) Mother - Diabetes Paternal Aunt - Diabetes Paternal Uncle - Breast Cancer Sister - other (sarcoidosis) Daughter Social History Substance Use Topics - Smoking status: Never Smoker - Smokeless tobacco: Never Used - Alcohol use No Past medical history, appointments, medications, allergies reviewed. Pertinent Lab/Diagnostic Studies are reviewed and discussed today Current Outpatient Prescriptions: - oxyCODONE-acetaminophen (PERCOCET) 5-325 mg tablet - venlafaxine ER (EFFEXOR XR) 150 mg 24 hr capsule - atorvastatin (LIPITOR) 10 mg tablet - clonazePAM (KLONOPIN) 0.5 mg tablet - gabapentin (NEURONTIN) 300 mg capsule - Benzonatate 200 mg capsule - hydroxychloroquine (PLAQUENIL) 200 mg tablet - pilocarpine (SALAGEN, PILOCARPINE,) 5 mg tablet - ergocalciferol, vitamin D2, (VITAMIN D) 50,000 unit capsule - fluticasone (FLONASE) 50 mcg/actuation nasal spray - clindamycin (CLEOCIN) 150 mg capsule - PEG 400-propylene glycol (SYSTANE) 0.4-0.3 % ophthalmic solution - melatonin 3 mg - ondansetron orally disintegrating (ZOFRAN ODT) 4 mg disintegrating tablet - BENEFIBER, WHEAT DEXTRIN, ORAL - omeprazole (PRILOSEC) 20 mg capsule - COMPOUNDED PRESCRIPTION - aspirin, enteric coated (ASPIRIN, ENTERIC COATED) 81 mg EC tablet - Calcium Carbonate (CALCIUM ANTACID) 320 mg (750 mg) chew - Calcium Citrate-Vitamin D3 (CITRACAL+D) 315-250 mg-unit tab - Flaxseed Oil oil - Multivitamins-Iron tab - Saliva Substitution Combo No.5 (NEUTRASAL) 538 mg pwpk - VITAMIN B COMPLEX ORAL - docusate sodium (COLACE) 100 mg capsule - polyethylene glycol 3350 (MIRALAX) 17 gram/dose powder - cycloSPORINE (RESTASIS) 0.05 % ophthalmic emulsion - camphor-menthol (SARNA ANTI-ITCH) lotion - pramipexole (MIRAPEX) 0.25 mg tablet Review of Systems CONSTITUTIONAL: No fevers, chills night sweats, unintended weight loss CARDIOVASCULAR: No chest pain, dyspnea, palpitations, orthopnea, PND, ankle edema. PULM: No dyspnea, unexplained cough. GI: No dysphagia/odynophagia, problematic reflux, constipation, diarrhea, changes in stool habits, hematochezia, melena. : No new urinary complaints, including dysuria, gross hematuria or pyuria. NEURO: No new balance problems, peripheral weakness/paresthesias or numbness of concern. Physical Exam BP 100/64 Pulse 100 Temp 37.7 ?C (99.8 ?F) Resp 20 Wt 48.1 kg (106 lb) SpO2 97% BMI 21.41 kg/m? General appearance: Well appearing, alert, in no acute distress, well nourished. Skin: Skin color, texture, turgor normal, no suspicious rashes or lesions Head: Normocephalic, no masses, lesions, tenderness or abnormalities Eyes: Anicteric sclera. Pupils are equally round and reactive to light. Extraocular movements are intact. Lungs: Lungs clear to auscultation. No wheezing, rhonchi, rales Heart: RRR without murmur, gallop, or rubs. Abdomen: rounded, distended, tender all over, patient did not like to be palpated deeply , no hepatosplenomegaly or masses, increased bowel sounds in all quadrants. ASSESSMENT/PLAN: 1. Dehydration - ICD9: 276.51, ICD10: E86.0 (primary diagnosis) Advised the patient to go to the Er 2. Small bowel obstruction (HCC) - ICD9: 560.9, ICD10: K56.609 3. Abdominal pain, unspecified abdominal location - ICD9: 789.00, ICD10: R10.9 ? Small bowel obstruction 4. Spondylosis of lumbar region without myelopathy or radiculopathy - ICD9: 721.3, ICD10: M47.816 refilled - OXYCODONE-ACETAMINOPHEN 5 MG-325 MG TABLET ANYI IRVING MD Referring Provider: SELF [200] Allergies As of Date: 09/27/2018 Noted Allergy Reaction ZOLOFT (SERTRALINE) 02/26/2015 6 - Diarrhea Comments: hospitalized for week BACTRIM DS (SULFAMETHOXAZOLE-TRIM*02/26/2015 1 - Mental Status Change 8 - GI Upset CELEXA (CITALOPRAM) 02/26/2015 6 - Diarrhea CODEINE 04/16/2010 8 - GI Upset Comments: nausea CONTRAST DYE 04/16/2010 16 - Unknown Comments: 07/02/18: Patient states ankle swelling is the only reaction and is unsure if it wasn't a coincidence CYMBALTA (DULOXETINE) 04/16/2010 6 - Diarrhea IODINE AND IODIDE CONTAINING PROD*03/13/2016 16 - Unknown Comments: Ankle swelling LAMICTAL (LAMOTRIGINE) 04/16/2010 14 - Other: See Comments Comments: [place] very drugged Pt. States the same thing happened in 2005 as well. MED-HIST 03/13/2016 14 - Other: See Comments Comments: prednisolone opthalmic MEDROL (METHYLPREDNISOLONE) 02/26/2015 2 - Rash PENICILLINS 11/25/2004 16 - Unknown Comments: Unknown reaction- was told as a child. PHENERGAN (PROMETHAZINE HCL) 04/16/2010 14 - Other: See Comments Comments: Involuntary body movements, mostly in feet and legs PREDNISOLONE ACETATE 12/28/2015 5 - Intolerance Comments: Itching and swelling REGLAN (METOCLOPRAMIDE HCL) 04/16/2010 14 - Other: See Comments Comments: Involuntary body movements in different parts of the body ZOLOFT (SERTRALINE HCL) 03/13/2016 6 - Diarrhea Date Reviewed: 09/27/2018 Reviewed by: Lindsey Herrera) TIMOTEO Beyer - Fully Assessed Reason for Visit: Pain [78] Cmt: lower abd seen GI a week ago and said was bloating Primary Visit Diagnosis:Dehydration [E86.0] Other Visit Diagnoses:Small bowel obstruction (HCC) [K56.609] Abdominal pain, unspecified abdominal location [R10.9] Spondylosis of lumbar region without myelopathy or radiculopathy [M47.816] Order(s):oxyCODONE-acetaminophen (PERCOCET) 5-325 mg tabletTake 0.5 tablets by mouth twice daily as needed for up to 30 days.Disp: 30 tabletRfl: 0 Prescriptions as of 09/27/2018 Sig: OXYCODONE-ACETAMINOPHEN 5 MG-* Take 0.5 tablets by mouth twi* VENLAFAXINE ER 150 MG CAPSULE* Take 1 capsule by mouth once * ATORVASTATIN 10 MG TABLET TAKES 5 MG EVERY OTHER DAY CLONAZEPAM 0.5 MG TABLET Take 0.5 tablets by mouth savage* GABAPENTIN 300 MG CAPSULE Take 1 capsule by mouth twice* BENZONATATE 200 MG CAPSULE Take 1 capsule by mouth three* HYDROXYCHLOROQUINE 200 MG TAB* Take by mouth once daily. PILOCARPINE 5 MG TABLET Take 1 tablet by mouth three * ERGOCALCIFEROL (VITAMIN D2) 5* Takes 1 time monthly FLUTICASONE 50 MCG/ACTUATION * Use 2 Sprays in each nostril * CLINDAMYCIN HCL 150 MG CAPSULE Take 1 capsule by mouth once * PEG 400-PROPYLENE GLYCOL 0.4 * Use 1 Drop in both eyes as ne* MELATONIN 3 MG TABLET Take 1 tablet by mouth daily * ONDANSETRON 4 MG DISINTEGRATI* Take 1 tablet by mouth every * BENEFIBER (WHEAT DEXTRIN) ORAL Take by mouth. OMEPRAZOLE 20 MG CAPSULE,TANNA* Take 1 capsule by mouth once * COMPOUNDED PRESCRIPTION Hospital bed Dx: M54.6, M19.9* ASPIRIN 81 MG TABLET,DELAYED * Take 81 mg by mouth once judy* CALCIUM CARBONATE 320 MG CALC* Take by mouth. CALCIUM CITRATE-VITAMIN D3 31* 4 tablet(s) By mouth Daily FLAXSEED OIL MULTIVITAMIN WITH IRON TABLET SALIVA SUBSTITUTE COMBO NO.5 * Use as instructed. 1 packet(* VITAMIN B COMPLEX ORAL Take by mouth. DOCUSATE SODIUM 100 MG CAPSULE Take 1 capsule by mouth twice* POLYETHYLENE GLYCOL 3350 17 G* Takes as needed for constipat* CYCLOSPORINE 0.05 % EYE DROPS* 1 Drop twice daily. CAMPHOR-MENTHOL 0.5 %-0.5 % L* Apply 1 application to affect* PRAMIPEXOLE 0.25 MG TABLET Take 0.5 tablets by mouth fou* Problem List As Of Date 09/27/2018 Noted Resolved PVCs (premature ventricular contractions) [I49.*INVALID FOR* More... Peptic Disease [K31.9] INVALID FOR* Vitamin D deficiency [E55.9] INVALID FOR* More... Sjogren's disease (HCC) [M35.00] INVALID FOR* More... Raynaud's disease [I73.00] INVALID FOR* More... Hyperlipidemia [E78.5] INVALID FOR* More... 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 Malignant neoplasm of left choroid (HCC) [C69.3*INVALID FOR* Vitreous hemorrhage of left eye (HCC) [H43.12] INVALID FOR* Fibromyalgia [M79.7] Osteoporosis [M81.0] Rheumatoid arthritis (HCC) [M06.9] INVALID FOR* More... 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 Medications Discontinued During This Encounter oxyCODONE-acetaminophen (PERCOCET) 5* 30 t* 0 09/24/2018 09/27/2018 Class: Print RX Route: ORAL Sig: Take 0.5 tablets by mouth twice daily as needed for up to 30 days. Earliest Fill Date: 09/24/18 Disc: Reason for discontinue is not on file. Encounter Status:Closed by ANYI IRVING MD on 09/27/18 CBC W/DIFF, AUTOMATED Collected: 09/27/2018 Status: F Source: [place] 1:30 PM [facility] REPOSITORY TYPE CODE TESTS RESULT OUT OF RANGE REFERENCE UNITS LAB L100.1000 4.4-11.0 K/mm3 High WBC 13.3 LAB L100.1200 4.2-5.4 M/mm3 Normal RBC 4.67 LAB L100.1300 12.0-15.0 g/dl Normal HGB 13.1 LAB L100.1400 37-47 % Normal HCT 41.2 LAB L100.1500 81-99 fL Normal MCV 88.2 LAB L100.1600 27.0-32.0 pg Normal MCH 28.1 LAB L100.1700 32-36 g/gl Low MCHC 31.8 LAB L100.1810 11.6-14.6 % Normal RDW CV 13.7 LAB L100.1820 35.1-43.9 fl High RDW SD 44.0 LAB L100.1900 150-450 K/mm3 Normal PLT 269 LAB L100.2000 6.2-12.0 fl Normal MPV 9.8 LAB L100.2100 47-70 % High NEUT% 80.0 LAB L100.2200 19-41 % Low LY% 10.4 LAB L100.2300 0-10 % Normal MONO% 9.1 LAB L100.2400 0-5 % Normal EO% 0.2 LAB L100.2500 0-1 % Normal BASO% 0.1 LAB L100.2550 0.0-0.9 % Normal IM GRAN % 0.200 Result Comment: IG% - Immature Granulocytes (promyelocytes, myelocytes and metamyelocytes) > 1% indicates that a LEFT SHIFT is Present. LAB L100.2620 2.0-7.7 X10 3/uL High Absolute Neut 10.7 LAB L100.2720 0.83-4.51 X10 3/ul Normal Absolute Lymph 1.38 Performed By: #### L100.0100 #### [facility] [address] [place], [address] COMPREHENSIVE METABOLIC Collected: 09/27/2018 Status: F Source: [place] [facility] 1:30 PM [facility] REPOSITORY TYPE CODE TESTS RESULT OUT OF RANGE REFERENCE UNITS LAB L501.0100 74-106 mg/dL Normal GLU 95 Result Comment: Please note revised GLUCOSE reference range effective 2017. LAB L501.1000 7-18 mg/dL Low BUN 6 LAB L501.1100 0.55-1.02 mg/dL Normal CREAT,SERUM 0.72 Result Comment: The validity of the calculated GFR AND GFRAA in patients over 70 years has not been determined. Clinical correlation is essential. LAB L501.1110 >60 mL/min Normal EST GFR 83 Result Comment: Non- GFR Calc LAB L501.1115 >60 mL/min Normal EST GFR - AA 100 Result Comment: GFR Calc LAB L501.1255 ml/min Normal Estimated CRCL 33.21 LAB L501.1300 10-20 RATIO Low BUN/CRE 8.4 LAB L501.1500 6.4-8. g/dL Normal 2 T PROT 7.5 LAB L501.1800 3.2-5. g/dL Normal 0 ALB 3.8 LAB L501.1950 2.2-4. g/dL Normal 2 GLOB 3.7 LAB L501.2000 0.9-2. RATIO Normal 4 A/G 1.0 LAB L501.2200 8.5-10 mg/dL Normal .1 CA 8.9 LAB L501.4100 15-37 U/L Normal AST 26 LAB L501.4305 45-117 U/L Normal ALK P 98 LAB L501.4405 13-56 U/L Normal ALT 22 LAB L501.4600 0.20-1 mg/dL Normal .00 T BILI 0.60 LAB L501.5300 136-14 mmol/L Normal 5 NA 138 LAB L501.5600 3.5-5. mmol/L Low 1 K 3.2 LAB L501.5900 98-107 mmol/L Normal CL 100 LAB L501.6100 21.0-3 mmol/L Normal 2.0 CO2 29.0 LAB L501.6200 5-15 Normal GAP 9 Performed By: #### L500.4050, L501.2450, L501.4010 #### [facility] [address] [place], [address] LIPASE Collected: 09/27/2018 Status: F Source: [place] 1:30 PM [facility] REPOSITORY TYPE CODE TESTS RESULT OUT OF RANGE REFERENCE UNITS LAB L501.2450 73-393 U/L Normal LIPASE 75 Performed By: #### L500.4050, L501.2450, L501.4010 #### [facility] [address] [place], [address] TROPONIN-I Collected: 09/27/2018 Status: F Source: [place] 1:30 PM [facility] REPOSITORY TYPE CODE TESTS RESULT OUT OF RANGE REFERENCE UNITS LAB L501.4010 <0.045 ng/mL Normal < 0.015 TROPONIN-I Result Comment: TROPONIN-I EXPECTED VALUES <0.045 Negative 0.045 - 0.590 Consistent with Cardiac Damage > OR = 0.600 Critical Value Not every elevated troponin is indicative of OR. These values should be used with clinical judgement in examining the patient's clinical picture for diagnosis. To establish a diagnosis of OR versus myocardial injury, there must be a demonstrated rise and/or fall in the troponin values, in addition to ischemic symptoms, EKG changes, new regional wall motion abnormality, and/or angiographical evidence. PLEASE NOTE: REFERENCE RANGES EDITED 18 Performed By: #### L500.4050, L501.2450, L501.4010 #### [facility] [address] [place], [address] LACTIC ACID Collected: 09/27/2018 Status: F Source: [place] 1:30 PM [facility] REPOSITORY Order Comment: Yes/No query for Sepsis Lactate Rule Y TYPE CODE TESTS RESULT OUT OF RANGE REFERENCE UNITS LAB L503.6005 0.4-2.0 mmol/L Normal LACTIC ACID 1.2 Performed By: #### L503.6005 #### [facility] [address] [place], [address] MAGNESIUM Collected: 09/27/2018 Status: F Source: [place] 1:30 PM [facility] REPOSITORY TYPE CODE TESTS RESULT OUT OF RANGE REFERENCE UNITS LAB L501.5200 1.6-2.6 mg/dL Normal MG 2.0 Performed By: #### L501.5200 #### [facility] [address] [place], [address] OBSOLETE Observed: 09/23/2018 Status: COMPLETED Source: [place] 12:00 AM [facility] REPOSITORY Refill (INTMWS) MICHAEL MOLINA ([id number]) 1935 F Date Time Provider Department 09/23/18 ANYI IRVING INTMWS During your visit today, we recorded the following information about you: Christine Gómez 09/23/2018 3:38 PM Signed Patient has been identified by name and date of : Yes Pending Prescriptions Disp Refills OXYCODONE-ACETAMINOPHEN 5 MG-325 MG TABLET 30 tablet 0 Sig: Take 0.5 tablets by mouth twice daily as needed for up to 30 days. MATHEW Class: C-II SLOAN: No RX INSTRUCTIONS: Print and leave at the [facility] restaurant front manager. Call patient when complete. Christine Myers Psr Sonya Gonzalez LPN 09/23/2018 4:00 PM Signed Patient has been identified by name and date of : Yes Patient phones for refill(s): Pending Prescriptions Disp Refills OXYCODONE-ACETAMINOPHEN 5 MG-325 MG TABLET 30 tablet 0 Sig: Take 0.5 tablets by mouth twice daily as needed for up to 30 days.Earliest Fill Date: 09/23/18 MATHEW Class: C-II SLOAN: No Date of last office visit in primary care: 07/20/2018 3 month follow-up scheduled w/PCP: 10/20/2018 Sonya Gonzalez LPN Bernadine Chwirchak Psr 09/27/2018 9:04 AM Signed Patient is coming in at 1:40pm today to see Dr. Irving for an appointment. She is asking if script for the Oxycodone-Acetaminophen can be signed. Thank you Lindsey Beyer MA, MA 09/27/2018 3:23 PM Signed Pt got script at appointment *9 Lindsey Beyer MA Allergies As of Date: 09/23/2018 Noted Allergy Reaction ZOLOFT (SERTRALINE) 02/26/2015 6 - Diarrhea Comments: hospitalized for week BACTRIM DS (SULFAMETHOXAZOLE-TRIM*02/26/2015 1 - Mental Status Change 8 - GI Upset CELEXA (CITALOPRAM) 02/26/2015 6 - Diarrhea CODEINE 04/16/2010 8 - GI Upset Comments: nausea CONTRAST DYE 04/16/2010 16 - Unknown Comments: 07/02/18: Patient states ankle swelling is the only reaction and is unsure if it wasn't a coincidence CYMBALTA (DULOXETINE) 04/16/2010 6 - Diarrhea IODINE AND IODIDE CONTAINING PROD*03/13/2016 16 - Unknown Comments: Ankle swelling LAMICTAL (LAMOTRIGINE) 04/16/2010 14 - Other: See Comments Comments: [place] very drugged Pt. States the same thing happened in 2005 as well. MED-HIST 03/13/2016 14 - Other: See Comments Comments: prednisolone opthalmic MEDROL (METHYLPREDNISOLONE) 02/26/2015 2 - Rash PENICILLINS 11/25/2004 16 - Unknown Comments: Unknown reaction- was told as a child. PHENERGAN (PROMETHAZINE HCL) 04/16/2010 14 - Other: See Comments Comments: Involuntary body movements, mostly in feet and legs PREDNISOLONE ACETATE 12/28/2015 5 - Intolerance Comments: Itching and swelling REGLAN (METOCLOPRAMIDE HCL) 04/16/2010 14 - Other: See Comments Comments: Involuntary body movements in different parts of the body ZOLOFT (SERTRALINE HCL) 03/13/2016 6 - Diarrhea Date Reviewed: 08/23/2018 Reviewed by: Gaby ([employer]) Primo - Fully Assessed Reason for Visit: Refill Request [94] Reason For Visit History Recorded Visit Diagnosis:Spondylosis of lumbar region without myelopathy or radiculopathy [M47.816] Prescriptions as of 09/23/2018 Sig: X OXYCODONE-ACETAMINOPHEN 5 MG-* Take 0.5 tablets by mouth twi* PRAMIPEXOLE 0.25 MG TABLET Take 0.5 tablets by mouth fou* ATORVASTATIN 10 MG TABLET TAKES 5 MG EVERY OTHER DAY X VENLAFAXINE ER 150 MG CAPSULE* Take 1 capsule by mouth once * CLONAZEPAM 0.5 MG TABLET Take 0.5 tablets by mouth savage* GABAPENTIN 300 MG CAPSULE Take 1 capsule by mouth twice* BENZONATATE 200 MG CAPSULE Take 1 capsule by mouth three* HYDROXYCHLOROQUINE 200 MG TAB* Take by mouth once daily. PILOCARPINE 5 MG TABLET Take 1 tablet by mouth three * ERGOCALCIFEROL (VITAMIN D2) 5* Takes 1 time monthly FLUTICASONE 50 MCG/ACTUATION * Use 2 Sprays in each nostril * CLINDAMYCIN HCL 150 MG CAPSULE Take 1 capsule by mouth once * PEG 400-PROPYLENE GLYCOL 0.4 * Use 1 Drop in both eyes as ne* MELATONIN 3 MG TABLET Take 1 tablet by mouth daily * ONDANSETRON 4 MG DISINTEGRATI* Take 1 tablet by mouth every * BENEFIBER (WHEAT DEXTRIN) ORAL Take by mouth. OMEPRAZOLE 20 MG CAPSULE,TANNA* Take 1 capsule by mouth once * COMPOUNDED PRESCRIPTION Hospital bed Dx: M54.6, M19.9* ASPIRIN 81 MG TABLET,DELAYED * Take 81 mg by mouth once judy* CALCIUM CARBONATE 320 MG CALC* Take by mouth. CALCIUM CITRATE-VITAMIN D3 31* 4 tablet(s) By mouth Daily FLAXSEED OIL MULTIVITAMIN WITH IRON TABLET SALIVA SUBSTITUTE COMBO NO.5 * Use as instructed. 1 packet(* VITAMIN B COMPLEX ORAL Take by mouth. DOCUSATE SODIUM 100 MG CAPSULE Take 1 capsule by mouth twice*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 AHI 13.8 - Mild obstructive sleep apnew exacerbated to the moderate degree in REM sleep - OCD (obsessive compulsive disorder) - On clinical nurse drug therapy - Osteoporosis 1991 - Osteoporosis - depression 1958 - Premature atrial contraction - Raynaud's disease 05/23/2006 - Restless leg syndrome - Restless leg syndrome - Rheumatoid arthritis ([facility]) 07/30/2011 - SCC (squamous cell carcinoma), face 06/04/2017 done by - liquid nitrogen. scc called [facility] - Sjogren's disease ([facility]) [facility] - Sjogren's disease ([facility]) 2005 - Tear film insufficiency - Urinary tract infectious disease - Vitamin D deficiency - Vitamin D deficiency PAST SURGICAL HISTORY Procedure Laterality Date - APPENDECTOMY 1954 [facility] - APPENDECTOMY - BACTERIAL AG DETECT CSF () 1936 - CHOLECYSTECTOMY 05/07/2005 Dr.Robert Nam - CLIN DEPRESSION SCREEN DOC - COLONOSCOPY 11/2010 polyps, inflammation - CT ABDOMEN - CYSTOSCOPY 01/19/2008 - [facility] OR THERA - IPAS - EKG 05/11/2015 SR with [place] - ENDOSCOPY PROC 1977 [place] - EYE SURGERY PROCEDURE 12-07-2015 Pars plana vitrectomy, endolaser, air fluid exchange, left eye - HYSTERECTOMY HX 03/18/2002 Dr.Mark Shah - LAP REPAIR BLADDER INJURY 03/18/2002 - MRI BRAIN W AND W/O - PAST SURGICAL HISTORY OF 07/2014 squamous cell exc rt. 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 - PULMONARY FUNCTION TEST 01/04/2014 - RECTAL REPAIR W OR W/O MESH 03/18/2002 - REMOVAL ADENOIDS,PRIMARY,<12 Y/O Adenoidectomy - REMOVAL OF TONSILS,<12 Y/O Tonsillectomy - RETROGRADE PYELOGRAM 01/19/2008 bilateral - SPINAL FLUID TAP, DIAGNOSTIC 1955 [facility] - TONSILLECTOMY HX 04/03/42 [facility] - VAGINAL HYSTERECTOMY W/VAGINAL/BLADDER REP 2001 A/P repair - VITRECTOMY,MECHANICAL Left 12/07/2015 PPV (Pars Plana Vitrectomy) History Review: I have reviewed and modified as needed, the following during this visit: Allergies, Past Medical History, Past Surgical History, Past Family History, Past Social History. Review of Systems CONSTITUTIONAL: Recent Weight Gain: No Recent Weight Loss: No Fatigue: YES daytime fatigue after a few hours Weakness: No Fever: YES night sweats once a week EYES: Pain: No Redness: No Loss of vision: No Double or blurred vision: No Dryness: YES Feels like something in eye: YES 2/2 dry eye Itching eyes: No [id number]: Sores in mouth: YES has one currently but previously had multiple, mostly on tongue Dryness of mouth: YES Difficulty in swallowing: No CARDIOVASCULAR: Pain in chest: No Irregular heart beat: No RESPIRATORY: Shortness of breath: No Difficulty in breathing at night: No Swollen legs or feet: No Cough: No Cough of blood: No Wheezing (asthma): No GASTROINTESTINAL: Nausea: No Vomiting of blood or coffee ground material: No Stomach pain relieved by food or milk: No Jaundice: No Increasing constipation: No Persistent diarrhea: No Blood in stools: No Black stools: No Heartburn: YES epigastric pain MUSCULOSKELETAL: Morning Stiffness: Yes, Joint Pain: Yes, Muscle Weakness: Yes, Muscle Tenderness: No, Joint Swelling: Yes, Joints affected in the last 6 months: List of joints affected in the last 6 months: shoulder wrist fingers knee ankle foot and Back Pain: Yes INTEGUMENTARY: Easy Bruising: YES Rash: No Hives: No Sun sensitive: No Tightness: No Nodules/bumps:No Hair loss: No Color changes of hands or feet in the cold: YES has Raynaud's NEUROLOGICAL SYSTEM: Headaches: YES chronic headaches Dizziness: No Fainting: No Muscle spasm: No Loss of consciousness: No Sensitivity or pain of hands and/or feet: No Memory loss: No Night sweats: YES once a week PSYCHIATRIC: Anxiety: YES Poor sleep: YES sleeps for 4 hours and then cannot get back to sleep BP 124/84 Pulse 96 Temp 36.9 ?C (98.4 ?F) Ht 149.9 cm (4' 11) Wt 48.5 kg (107 lb) BMI 21.61 kg/m? Physical Exam GENERAL: Well appearing, alert, comfortable, in no acute distress, well-hydrated, well nourished. HEENT: Negative for external ears normal. Eye Exam normal. External nose normal, no nasal ulcer or throat ulcer. +oral erythema on inner bottom lip but no obvious ulcer seen NECK: NECK Supple, no adenopathy; thyroid symmetric, normal size CARDIAC: regular rate and rhythm, No murmur asculated. and Equal peripheral pulses RESPIRATORY: Lungs clear to auscultation. No wheezing, rhonchi, rales VASCULAR: RRR without murmur, gallop, or rubs. No ectopy. ABDOMEN: Soft, non tender. BS active. No masses or organomegaly. NEURO: Motor and sensory exam normal SKIN: Negative for alopecia, skin rash, malar rash, skin lesion, skin ulcer, pits, thickening, color changes, telangiectasias, nail changes, nail ridging, nail pitting, onycholysis MUSCULOSKELETAL: DIPS: Abnormal, Heberden's nodes and mild tenderness to palpation in a few joints PIPS: Abnormal, Avtar's nodes and mild tenderness to palpation in a few joints MCPs: Abnormal, mild tenderness to palpation in a few joints Wrists: Abnormal, tender to palpation Elbows: Normal Shoulders: Normal C-Spine: Abnormal, pronounced kyphosis of C spine with tenderness of spinous processes Hips: Normal Knees: Normal Ankles: Abnormal, tenderness to palpation MTPs / Toes: Normal Lab Results: Glucose 86 11/17/2017 ALT 20 11/17/2017 WBC 7.61 11/17/2017 Hemoglobin 13.5 11/17/2017 Platelet Count 262 11/17/2017 WSR 2 08/23/2013 CRP <0.29 08/23/2013 Serology: CK negative Radiology: DXA 2018- osteoporosis Hand XR- OA C spine XR- OA Hip XR- negative NM Whole Body scan- multiple compression fractures L1-L5 and T8 Assessment and Plan (M81.0) Osteoporosis, unspecified osteoporosis type, unspecified pathological fracture presence (primary encounter diagnosis) (M35.00) Sjogren's syndrome without extraglandular involvement (HCC) 82 yo F with previously diagnosed ankylosing spondylitis, sjogren's syndrome, osteoporosis, fibromyalgia is here for follow up. Her symptoms include fatigue, arthralgias, dry eyes, dry mouth. Physical exam reveals joint tenderness in her hands with Heberden and Avtar nodes and kyphosis of her spine. Imaging has shown DJD and osteoporosis. Serological workup was pertinent for a borderline GORAN, negative SSA, SSB, rheumatoid factor normal C3 and C4. No evidence of extraglandular features. She would like to taper off hydroxychloroquine if possible. She continues to have fatigue and arthralgia. Hydroxychloroquine generally does not help with glandular symptoms. She was advised to hold off for a few weeks to see if it causes any changes in her symptoms. From these findings it appears that her arthralgias and back pain are likely related to osteoarthritis, fibromyalgia and compression fractures 2/2 osteoporosis. She does not have features of inflammatory arthropathy (prolonged morning stiffness, pain improvement with activity, swelling) and has clinical findings consistent with OA (pain worse at end of day and with activity). She already sees Pain Management and should continue this for adequate pain control. We again had a long discussion about osteoporosis and the need for treatment. She has been on several treatment options before including Prolia and Boniva. She has osteoporosis and would benefit from treatment including bisphosphonates, but the patient refuses to re-try these medications. She understands the risks of untreated osteoporosis and the fact that her compression fractures are likely related to untreated osteoporosis and accepts these risks. She will think about trying Reclast and we will discuss this further at next visit. Her Sjogren's appears to be well controlled with eye drops and salivation stimulants. No evidence of inflammatory spondyloarthropathy on the x-rays. No orders found for this visit on 08/23/18. Return in about 6 months (around 02/21/2019) for Sjogrens syndrome. Fely Segovia MD CNOV Observed: 08/23/2018 Status: COMPLETED Source: [place] 10:00 AM [facility] OTHER [place] REPOSITORY Office Visit ([facility]ATH) MICHAEL MOLINA ([id number]) 1935 F Date Time Provider Department 08/23/18 10:00 AM FELY SEGOVIA During your visit today, we recorded the following information about you: Temperature Pulse Blood pressure Weight 98.4 degrees 96/minute 124/84 48.5 kg Height 1.499 m Fely Segovia MD 08/23/2018 1:52 PM Signed RHEUMATOLOGY PROGRESS NOTE Patient is here for a follow up visit for Patient presents with: Osteoporosis: denies any pain at this time. HPI: Michael Molina is a 82 year old female who presents to establish care for osteoporosis, Sjogren's syndrome, ankylosing spondylitis. 82 yo F with PMH as above, retinal melanoma, squamous cell carcinoma s/p excision, fibromyalgia, chronic headaches/migraines, MARILEE non- compliant with CPAP, restless leg syndrome who presents to establish care. She was previously seeing Dr. Montes, project control officer, and was diagnosed with Sjogren's syndrome, , osteoporosis. At presentation she had arthralgias, dry eyes, dry mouth. She has been treated with Plaquenil, Restasis, Humira (went off due to eye cancer), colchicine (for suspected Behcet's, taken off), Prolia (had reaction-flu like symptoms), Boniva. Is still currently on Plaquenil, salagen, restasis. Today she complains of joint pain-hands, wrists, hips, entire spine, ankles, feet, shoulders. Back pain is worse with movement or activity, improved with rest. All joint pain feels worse after use, pain worst at the end of the day. Takes oxycodone and tylenol for pain. Has joint swelling in hands occasionally. Has morning stiffness that lasts <10 minutes. Denies any recent falls. Still has dry eyes, dry mouth. Takes Restasis And pilocarpine 1/2 tablet which help with her symptoms. Admits to extreme life stressors as her lives in a facility with end stage dementia. Previous imaging has all shown DJD and osteoporosis but she refuses to restart bisphosphonates as she thinks they caused her cavities. She also believes they may cause cancer and since she has a significant PMH of cancer she wants to avoid them. Has done PT in the past, helped. Has seen PM in the past, had Kenalog injections in the past which helped with the pain. Has multiple compression fractures- L1-5, T8 Was previously on Prolia but did not like side effects (flu- like symptoms) and refuses to take it. 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 Given the diagnosis of SS and previously. Appears to have significant DJD and osteoporosis on imaging, with multiple compression fractures. Currently on plaquenil, restasis, salagen. 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) - Bleeding ulcer - Bowel trouble 04/2003 4 BM's in month - Bronchitis 2014 - Cataract left eye - Colitis lymphocytic - Crohn's disease (HCC) - Dental caries - Depression - Diverticulosis - Dyslipidemia - Dysuria - Exanthematous disorder - Eye cancer (HCC) - Fibromyalgia 1991 - Gastroesophageal reflux disease - Glossodynia - Hand joint pain - High cholesterol - History of pneumonia as a child - Hyperlipidemia - Increased frequency of urination - 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 scc called [facility] - Sjogren's disease ([facility]) [facility] - Sjogren's disease ([facility]) 2005 - Tear film insufficiency - Urinary tract infectious disease - Vitamin D deficiency - Vitamin D deficiency PAST SURGICAL HISTORY Procedure Laterality Date - APPENDECTOMY 1954 [place] - APPENDECTOMY - BACTERIAL AG DETECT CSF () 1936 - CHOLECYSTECTOMY 05/07/2005 Dr.Robert Nam - CLIN DEPRESSION SCREEN DOC - COLONOSCOPY 11/2010 polyps, inflammation - CT ABDOMEN - CYSTOSCOPY 01/19/2008 - [facility] OR [facility]ERA - IPAS - EKG 05/11/2015 SR with [facility] - ENDOSCOPY PROC 1977 [place], [place] - EYE SURGERY PROCEDURE 12-07-2015 Pars plana vitrectomy, endolaser, air fluid exchange, left eye - HYSTERECTOMY HX 03/18/2002 Dr.Mark Shah - LAP REPAIR BLADDER INJURY 03/18/2002 - MRI BRAIN W AND W/O - PAST SURGICAL HISTORY OF 07/2014 squamous cell exc rt. 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 - PULMONARY FUNCTION TEST 01/04/2014 - RECTAL REPAIR W OR W/O MESH 03/18/2002 - REMOVAL ADENOIDS,PRIMARY,<12 Y/O Adenoidectomy - REMOVAL OF TONSILS,<12 Y/O Tonsillectomy - RETROGRADE PYELOGRAM 01/19/2008 bilateral - SPINAL FLUID TAP, DIAGNOSTIC 1955 [facility] - TONSILLECTOMY HX 04/03/42 [facility] - VAGINAL HYSTERECTOMY W/VAGINAL/BLADDER REP 2001 A/P repair - VITRECTOMY,MECHANICAL Left 12/07/2015 PPV (Pars Plana Vitrectomy) History Review: I have reviewed and modified as needed, the following during this visit: Allergies, Past Medical History, Past Surgical History, Past Family History, Past Social History. Review of Systems CONSTITUTIONAL: Recent Weight Gain: No Recent Weight Loss: No Fatigue: YES daytime fatigue after a few hours Weakness: No Fever: YES night sweats once a week EYES: Pain: No Redness: No Loss of vision: No Double or blurred vision: No Dryness: YES Feels like something in eye: YES 2/2 dry eye Itching eyes: No [id number]-[id number]: Sores in mouth: YES has one currently but previously had multiple, mostly on tongue Dryness of mouth: YES Difficulty in swallowing: No CARDIOVASCULAR: Pain in chest: No Irregular heart beat: No RESPIRATORY: Shortness of breath: No Difficulty in breathing at night: No Swollen legs or feet: No Cough: No Cough of blood: No Wheezing (asthma): No GASTROINTESTINAL: Nausea: No Vomiting of blood or coffee ground material: No Stomach pain relieved by food or milk: No Jaundice: No Increasing constipation: No Persistent diarrhea: No Blood in stools: No Black stools: No Heartburn: YES epigastric pain MUSCULOSKELETAL: Morning Stiffness: Yes, Joint Pain: Yes, Muscle Weakness: Yes, Muscle Tenderness: No, Joint Swelling: Yes, Joints affected in the last 6 months: List of joints affected in the last 6 months: shoulder wrist fingers knee ankle foot and Back Pain: Yes INTEGUMENTARY: Easy Bruising: YES Rash: No Hives: No Sun sensitive: No Tightness: No Nodules/bumps:No Hair loss: No Color changes of hands or feet in the cold: YES has Raynaud's NEUROLOGICAL SYSTEM: Headaches: YES chronic headaches Dizziness: No Fainting: No Muscle spasm: No Loss of consciousness: No Sensitivity or pain of hands and/or feet: No Memory loss: No Night sweats: YES once a week PSYCHIATRIC: Anxiety: YES Poor sleep: YES sleeps for 4 hours and then cannot get back to sleep BP 124/84 Pulse 96 Temp 36.9 ?C (98.4 ?F) Ht 149.9 cm (4' 11) Wt 48.5 kg (107 lb) BMI 21.61 kg/m? Physical Exam GENERAL: Well appearing, alert, comfortable, in no acute distress, well-hydrated, well nourished. HEENT: Negative for external ears normal. Eye Exam normal. External nose normal, no nasal ulcer or throat ulcer. +oral erythema on inner bottom lip but no obvious ulcer seen NECK: NECK Supple, no adenopathy; thyroid symmetric, normal size CARDIAC: regular rate and rhythm, No murmur asculated. and Equal peripheral pulses RESPIRATORY: Lungs clear to auscultation. No wheezing, rhonchi, rales VASCULAR: RRR without murmur, gallop, or rubs. No ectopy. ABDOMEN: Soft, non tender. BS active. No masses or organomegaly. NEURO: Motor and sensory exam normal SKIN: Negative for alopecia, skin rash, malar rash, skin lesion, skin ulcer, pits, thickening, color changes, telangiectasias, nail changes, nail ridging, nail pitting, onycholysis MUSCULOSKELETAL: DIPS: Abnormal, Heberden's nodes and mild tenderness to palpation in a few joints PIPS: Abnormal, Avtar's nodes and mild tenderness to palpation in a few joints MCPs: Abnormal, mild tenderness to palpation in a few joints Wrists: Abnormal, tender to palpation Elbows: Normal Shoulders: Normal C-Spine: Abnormal, pronounced kyphosis of C spine with tenderness of spinous processes Hips: Normal Knees: Normal Ankles: Abnormal, tenderness to palpation MTPs / Toes: Normal Lab Results: Glucose 86 11/17/2017 ALT 20 11/17/2017 WBC 7.61 11/17/2017 Hemoglobin 13.5 11/17/2017 Platelet Count 262 11/17/2017 WSR 2 08/23/2013 CRP <0.29 08/23/2013 Serology: CK negative Radiology: DXA 2018- osteoporosis Hand XR- OA C spine XR- OA Hip XR- negative NM Whole Body scan- multiple compression fractures L1-L5 and T8 Assessment and Plan (M81.0) Osteoporosis, unspecified osteoporosis type, unspecified pathological fracture presence (primary encounter diagnosis) (M35.00) Sjogren's syndrome without extraglandular involvement (HCC) 82 yo F with previously diagnosed ankylosing spondylitis, sjogren's syndrome, osteoporosis, fibromyalgia is here for follow up. Her symptoms include fatigue, arthralgias, dry eyes, dry mouth. Physical exam reveals joint tenderness in her hands with Heberden and Avtar nodes and kyphosis of her spine. Imaging has shown DJD and osteoporosis. Serological workup was pertinent for a borderline GORAN, negative SSA, SSB, rheumatoid factor normal C3 and C4. No evidence of extraglandular features. She would like to taper off hydroxychloroquine if possible. She continues to have fatigue and arthralgia. Hydroxychloroquine generally does not help with glandular symptoms. She was advised to hold off for a few weeks to see if it causes any changes in her symptoms. From these findings it appears that her arthralgias and back pain are likely related to osteoarthritis, fibromyalgia and compression fractures 2/2 osteoporosis. She does not have features of inflammatory arthropathy (prolonged morning stiffness, pain improvement with activity, swelling) and has clinical findings consistent with OA (pain worse at end of day and with activity). She already sees Pain Management and should continue this for adequate pain control. We again had a long discussion about osteoporosis and the need for treatment. She has been on several treatment options before including Prolia and Boniva. She has osteoporosis and would benefit from treatment including bisphosphonates, but the patient refuses to re-try these medications. She understands the risks of untreated osteoporosis and the fact that her compression fractures are likely related to untreated osteoporosis and accepts these risks. She will think about trying Reclast and we will discuss this further at next visit. Her Sjogren's appears to be well controlled with eye drops and salivation stimulants. No evidence of inflammatory spondyloarthropathy on the x-rays. No orders found for this visit on 08/23/18. Return in about 6 months (around 02/21/2019) for Sjogrens syndrome. Fely Segovia MD Referring Provider: FELY SEGOVIA [[id number]] Allergies As of Date: 08/23/2018 Noted Allergy Reaction ZOLOFT (SERTRALINE) 02/26/2015 6 - Diarrhea Comments: hospitalized for week BACTRIM DS (SULFAMETHOXAZOLE-TRIM*02/26/2015 1 - Mental Status Change 8 - GI Upset CELEXA (CITALOPRAM) 02/26/2015 6 - Diarrhea CODEINE 04/16/2010 8 - GI Upset Comments: nausea CONTRAST DYE 04/16/2010 16 - Unknown Comments: 07/02/18: Patient states ankle swelling is the only reaction and is unsure if it wasn't a coincidence CYMBALTA (DULOXETINE) 04/16/2010 6 - Diarrhea IODINE AND IODIDE CONTAINING PROD*03/13/2016 16 - Unknown Comments: Ankle swelling LAMICTAL (LAMOTRIGINE) 04/16/2010 14 - Other: See Comments Comments: [place] very drugged Pt. States the same thing happened in 2005 as well. MED-HIST 03/13/2016 14 - Other: See Comments Comments: prednisolone opthalmic MEDROL (METHYLPREDNISOLONE) 02/26/2015 2 - Rash PENICILLINS 11/25/2004 16 - Unknown Comments: Unknown reaction- was told as a child. PHENERGAN (PROMETHAZINE HCL) 04/16/2010 14 - Other: See Comments Comments: Involuntary body movements, mostly in feet and legs PREDNISOLONE ACETATE 12/28/2015 5 - Intolerance Comments: Itching and swelling REGLAN (METOCLOPRAMIDE HCL) 04/16/2010 14 - Other: See Comments Comments: Involuntary body movements in different parts of the body ZOLOFT (SERTRALINE HCL) 03/13/2016 6 - Diarrhea Date Reviewed: 08/23/2018 Reviewed by: Gaby MirelesH[facility] PennsylvaniaMunir Tillman - Fully Assessed Reason for Visit: Osteoporosis [773] Cmt: denies any pain at this time. Primary Visit Diagnosis:Osteoporosis, unspecified osteoporosis type, unspecified pathological fracture presence [M81.0] Other Visit Diagnosis:Sjogren's syndrome without extraglandular involvement (HCC) [M35.00] Prescriptions as of 08/23/2018 Sig: ASPIRIN 81 MG TABLET,DELAYED * Take 81 mg by mouth once judy* ATORVASTATIN 10 MG TABLET TAKES 5 MG EVERY OTHER DAY BENZONATATE 200 MG CAPSULE Take 1 capsule by mouth three* CALCIUM CARBONATE 320 MG CALC* Take by mouth. CALCIUM CITRATE-VITAMIN D3 31* 4 tablet(s) By mouth Daily CLINDAMYCIN HCL 150 MG CAPSULE Take 1 capsule by mouth once * CLONAZEPAM 0.5 MG TABLET Take 0.5 tablets by mouth savage* COMPOUNDED PRESCRIPTION Hospital bed Dx: M54.6, M19.9* CYCLOSPORINE 0.05 % EYE DROPS* 1 Drop twice daily. DOCUSATE SODIUM 100 MG CAPSULE Take 1 capsule by mouth twice* ERGOCALCIFEROL (VITAMIN D2) 5* Takes 1 time monthly FLAXSEED OIL FLUTICASONE 50 MCG/ACTUATION * Use 2 Sprays in each nostril * GABAPENTIN 300 MG CAPSULE Take 1 capsule by mouth twice* HYDROXYCHLOROQUINE 200 MG TAB* Take by mouth once daily. MELATONIN 3 MG TABLET Take 1 tablet by mouth daily * MULTIVITAMIN WITH IRON TABLET OMEPRAZOLE 20 MG CAPSULE,TANNA* Take 1 capsule by mouth once * ONDANSETRON 4 MG DISINTEGRATI* Take 1 tablet by mouth every * PEG 400-PROPYLENE GLYCOL 0.4 * Use 1 Drop in both eyes as ne* PILOCARPINE 5 MG TABLET Take 1 tablet by mouth three * POLYETHYLENE GLYCOL 3350 17 G* Takes as needed for constipat* PRAMIPEXOLE 0.25 MG TABLET Take 0.5 tablets by mouth fou* SALIVA SUBSTITUTE COMBO NO.5 * Use as instructed. 1 packet(* VENLAFAXINE ER 150 MG CAPSULE* Take 1 capsule by mouth once * VITAMIN B COMPLEX ORAL Take by mouth. BENEFIBER (WHEAT DEXTRIN) ORAL Take by mouth. CAMPHOR-MENTHOL 0.5 %-0.5 % L* Apply 1 application to affect* OXYCODONE-ACETAMINOPHEN 5 MG-* Take 0.5 tablets by mouth twi* Problem List As Of Date 08/23/2018 Noted Resolved PVCs (premature ventricular contractions) [I49.*INVALID FOR* More... Peptic Disease [K31.9] INVALID FOR* Vitamin D deficiency [E55.9] INVALID FOR* More... Sjogren's disease (HCC) [M35.00] INVALID FOR* More... Raynaud's disease [I73.00] INVALID FOR* More... Hyperlipidemia [E78.5] INVALID FOR* More... 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 Malignant neoplasm of left choroid (HCC) [C69.3*INVALID FOR* Vitreous hemorrhage of left eye (HCC) [H43.12] INVALID FOR* Fibromyalgia [M79.7] Osteoporosis [M81.0] Rheumatoid arthritis ([facility]) [M06.9] INVALID FOR* More... 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 good Demeanor detailed, a bit obsessive Speech: Articulate normal reate Thought Stream logical Thought Content about how symptoms goe. Mood: variable. Affect: euth Suicidal Ideation: no Homocidal Ideation: No Psychosis no Insight no Judgment good ENT : na Abdomen: overweigh Neuro: Gait and station normal, Strength grossly normal in all extremities. Coordination grossly intact. No tremors noted. Sleep Disorder Dx Impression: Restless legs syndrome. ? 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 Case Formulation / [place] (may include pt's hopes, fears, expectations, concerns): Generally the present regimen is working pretty well. Actions taken: Motivational Interviewing aspects taken review PDMP Aspect: PDMP website checked and validated. All prescriptions have been APPROPRIATELY filled. No suspicious activity was identified. 08/10/2018 by Brenda Orosco MD Clonazepam and GPN good till about October. May need Oxy in Mid-August. Review, answering questions. Plan: Continue to monitor, keep with current meds if safe. Follow up 3 months with PAN OPERATOR. Brenda Orosco MD HEMOGLOBIN A1C Collected: 07/20/2018 Status: F Source: [place] 10:58 AM [facility] REPOSITORY TYPE CODE TESTS RESULT OUT OF REFERENCE UNITS RANGE LAB HGBA1C 4.3-5.6 % High Hemoglobin A1c 5.7 Result Comment: [place] [employer] guidelines indicate that patients with HgbA1c in the range 5.7-6.4% are at increased risk for development of diabetes, and intervention by lifestyle modification may be beneficial. HgbA1c greater or equal to 6.5% is considered diagnostic of diabetes. LAB HBA0 mg/dL Est. Average Glucose 117 Result Comment: eAG: (Estimated average glucose) is a calculated value from HgbA1c and is equal opportunity representative of the average blood glucose level in the last 2-3 month period. Performed By: #### HBA1C #### [facility] [address] [id number] PROGRESS Observed: 07/20/2018 Status: COMPLETED Source: [place] 10:04 AM [facility] REPOSITORY HNO ID: [id number] Author: Anyi Irving Service: (none) Author Type: Physician Type: Progress Notes Filed: 07/20/2018 1:59 PM Note Text: Reason for Visit Patient presents with: Established Patient: 4 month follow up- not feeling good,headache Michael Molina is a 82 year old female who presents here today for Above Complaints.. Health Maintenance There are no preventive care reminders to display for this patient. HPI Notes she just feels very poorly of late. Takes a regular multivitamin.......... D50,000, calcium 1200 mgs She notes some constipation occasionally. She takes some miralax for it. And it has helped her a lot.The reason she is taking all the calcium is Osteoporosis. Her main complaint today is that she hurts all over, she is on benzo for her anxiety, on percocet for her pain. Was being treated for AK, but her xray did not have any signs of SI inflammation, she also has sjorgens disease taking restasis. Patient is on plaquenil, not sure what rheum will do about it. Patient was asking my nurse about the medical marijuana. We discussed that we are not doing that at this point. She is on effexor, will increase and see it that Helps her with the pain. 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 Lipids are normal, reviewed test results with patient Who takes medications regularly and has no side effects. Reviewed her recent blood work and everything looks fine there Patient has horrible headaches from the vision she thinks especially from refractory error Sugars were elevated previously would like to get it checked No problem-specific Assessment AND Plan notes found for this encounter. 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[facility]) - Bleeding ulcer - Bowel trouble 04/2003 4 BM's in month - Bronchitis 2014 - Cataract left eye - Colitis lymphocytic - Crohn's disease ([facility]) - Dental caries - Depression - Diverticulosis - Dyslipidemia - Dysuria - Exanthematous disorder - Eye cancer ([facility]) - Fibromyalgia 1991 - Gastroesophageal reflux disease - Glossodynia - Hand joint pain - High cholesterol - History of pneumonia as a child - Hyperlipidemia - Increased frequency of urination - 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 scc called [facility] - Sjogren's disease ([facility]) [facility] - Sjogren's disease ([facility]) 2006 - Tear film insufficiency - Urinary tract infectious disease - Vitamin D deficiency - Vitamin D deficiency PAST SURGICAL HISTORY Procedure Laterality Date - APPENDECTOMY 1954 [facility] - APPENDECTOMY - BACTERIAL AG DETECT CSF () 1936 - CHOLECYSTECTOMY 05/07/2005 Dr.Robert Nam - CLIN DEPRESSION SCREEN DOC - COLONOSCOPY 11/2010 polyps, inflammation - CT ABDOMEN - CYSTOSCOPY 01/19/2008 - [facility] DIAGNOSTIC OR [facility]ERA - IPAS - EKG 05/11/2015 SR with [place] - ENDOSCOPY PROC 1977 [place] - EYE SURGERY PROCEDURE 12-07-2015 Pars plana vitrectomy, endolaser, air fluid exchange, left eye - HYSTERECTOMY HX 03/18/2002 Dr.Mark Shah - LAP REPAIR BLADDER INJURY 03/18/2002 - MRI BRAIN W AND W/O - PAST SURGICAL HISTORY OF 07/2014 squamous cell exc rt. 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 - PULMONARY FUNCTION TEST 01/04/2014 - RECTAL REPAIR W OR W/O MESH 03/18/2002 - REMOVAL ADENOIDS,PRIMARY,<12 Y/O Adenoidectomy - REMOVAL OF TONSILS,<12 Y/O Tonsillectomy - RETROGRADE PYELOGRAM 01/19/2008 bilateral - SPINAL FLUID TAP, DIAGNOSTIC 1955 [facility] - TONSILLECTOMY HX 04/03/42 [facility] - VAGINAL HYSTERECTOMY W/VAGINAL/BLADDER REP 2001 A/P repair - VITRECTOMY,MECHANICAL Left 12/07/2015 PPV (Pars Plana Vitrectomy) FAMILY HISTORY Problem Relation Age of Onset - Diabetes Father - Heart Father - Stroke Father - Cataract Father - Cataract Mother - other (parkinson's) Mother - Diabetes Paternal Aunt - Diabetes Paternal Uncle - Breast Cancer Sister - other (sarcoidosis) Daughter - Asthma Other - Cancer Other - Hypertension Other - Osteoporosis Other - other (crohn's) Other - other (Alcoholism) Other - other (Diabetes mellitus) Other - other (Osteoarthritis) Other - other (Rheumatologic disorder) Other - other (Systemic lupus) Other Social History Substance Use Topics - Smoking status: Never Smoker - Smokeless tobacco: Never Used - Alcohol use No Past medical history, appointments, medications, allergies reviewed. Pertinent Lab/Diagnostic Studies are reviewed and discussed today Current Outpatient Prescriptions: - clonazePAM (KLONOPIN) 0.5 mg tablet - gabapentin (NEURONTIN) 300 mg capsule - pramipexole (MIRAPEX) 0.25 mg tablet - Benzonatate 200 mg capsule - oxyCODONE-acetaminophen (PERCOCET) 5-325 mg tablet - hydroxychloroquine (PLAQUENIL) 200 mg tablet - pilocarpine (SALAGEN, PILOCARPINE,) 5 mg tablet - ergocalciferol, vitamin D2, (VITAMIN D) 50,000 unit capsule - fluticasone (FLONASE) 50 mcg/actuation nasal spray - venlafaxine ER (EFFEXOR XR) 75 mg 24 hr capsule - clindamycin (CLEOCIN) 150 mg capsule - atorvastatin (LIPITOR) 10 mg tablet - PEG 400-propylene glycol (SYSTANE) 0.4-0.3 % ophthalmic solution - melatonin 3 mg - ondansetron orally disintegrating (ZOFRAN ODT) 4 mg disintegrating tablet - BENEFIBER, WHEAT DEXTRIN, ORAL - omeprazole (PRILOSEC) 20 mg capsule - COMPOUNDED PRESCRIPTION - aspirin, enteric coated (ASPIRIN, ENTERIC COATED) 81 mg EC tablet - Calcium Carbonate (CALCIUM ANTACID) 320 mg (750 mg) chew - Calcium Citrate-Vitamin D3 (CITRACAL+D) 315-250 mg-unit tab - Flaxseed Oil oil - Multivitamins-Iron tab - Saliva Substitution Combo No.5 (NEUTRASAL) 538 mg pwpk - VITAMIN B COMPLEX ORAL - docusate sodium (COLACE) 100 mg capsule - polyethylene glycol 3350 (MIRALAX) 17 gram/dose powder - cycloSPORINE (RESTASIS) 0.05 % ophthalmic emulsion - camphor-menthol (SARNA ANTI-ITCH) lotion Review of Systems CONSTITUTIONAL: No fevers, chills night sweats, unintended weight loss CARDIOVASCULAR: No chest pain, dyspnea, palpitations, orthopnea, PND, ankle edema. PULM: No dyspnea, unexplained cough. GI: No dysphagia/odynophagia, problematic reflux, constipation, diarrhea, changes in stool habits, hematochezia, melena. : No new urinary complaints, including dysuria, gross hematuria or pyuria. NEURO: No new balance problems, peripheral weakness/paresthesias or numbness of concern. Physical Exam BP 130/72 (BP Site: Left Arm, BP Position: Sitting, BP Cuff Size: Regular Adult) Pulse 84 Resp 12 Ht 149.9 cm (4' 11) Wt 48.5 kg (107 lb) SpO2 100% BMI 21.61 kg/m? General appearance: Well appearing, alert, in no acute distress, well nourished. Skin: Skin color, texture, turgor normal, no suspicious rashes or lesions Head: Normocephalic, no masses, lesions, tenderness or abnormalities Eyes: Anicteric sclera. Pupils are equally round and reactive to light. Extraocular movements are intact. Lungs: Lungs clear to auscultation. No wheezing, rhonchi, rales Heart: RRR without murmur, gallop, or rubs. Extremities: No deformities, edema, skin discoloration, clubbing or cyanosis. Good capillary refill. ASSESSMENT/PLAN: 1. Whole body pain - ICD9: 780.96, ICD10: R52 (primary diagnosis) Went over the side effect profile for the drug with the patient, mentioned every one of it , discussed appropriate concerns , alternatives and benefits of the drug, Patient tried to suggest she needs more medication of opiates but is strongly discouraged her from it. - VENLAFAXINE ER 150 MG CAPSULE,EXTENDED RELEASE 24 HR 2. Spondylosis of lumbar region without myelopathy or radiculopathy - ICD9: 721.3, ICD10: M47.816 - OXYCODONE-ACETAMINOPHEN 5 MG-325 MG TABLET 3. RLS (restless legs syndrome) - ICD9: 333.94, ICD10: G25.81 - PRAMIPEXOLE 0.25 MG TABLET 4. Hyperlipidemia, unspecified hyperlipidemia type - ICD9: 272.4, ICD10: E78.5 - good control - Continue current medication. 5. Choroid melanoma of left eye (HCC) - ICD9: 190.6, ICD10: C69.32 6. Fibromyalgia - ICD9: 729.1, ICD10: M79.7 - VENLAFAXINE ER 150 MG CAPSULE,EXTENDED RELEASE 24 HR 7. Elevated blood sugar - ICD9: 790.29, ICD10: R73.9 ANYI IRVING MD CNOV Observed: 07/20/2018 Status: COMPLETED Source: [place] 9:40 AM [facility] REPOSITORY Office Visit (INTMWS) MICHAEL MOLINA ([id number]) 1935 F Date Time Provider Department 07/20/18 9:40 AM ANYI IRVING During your visit today, we recorded the following information about you: Pulse Respiration Blood pressure Weight 84/minute 12/minute 130/72 48.5 kg Height 1.499 m ANYI IRVING MD 07/20/2018 1:59 PM Signed Reason for Visit Patient presents with: Established Patient: 4 month follow up- not feeling good,headache Michael Molina is a 82 year old female who presents here today for Above Complaints.. Health Maintenance There are no preventive care reminders to display for this patient. HPI Notes she just feels very poorly of late. Takes a regular multivitamin.......... D50,000, calcium 1200 mgs She notes some constipation occasionally. She takes some miralax for it. And it has helped her a lot.The reason she is taking all the calcium is Osteoporosis. Her main complaint today is that she hurts all over, she is on benzo for her anxiety, on percocet for her pain. Was being treated for AK, but her xray did not have any signs of SI inflammation, she also has sjorgens disease taking restasis. Patient is on plaquenil, not sure what rheum will do about it. Patient was asking my nurse about the medical marijuana. We discussed that we are not doing that at this point. She is on effexor, will increase and see it that Helps her with the pain. 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 Lipids are normal, reviewed test results with patient Who takes medications regularly and has no side effects. Reviewed her recent blood work and everything looks fine there Patient has horrible headaches from the vision she thinks especially from refractory error Sugars were elevated previously would like to get it checked No problem-specific Assessment AND Plan notes found for this encounter. 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) - Bleeding ulcer - Bowel trouble 04/2003 4 BM's in month - Bronchitis 2014 - Cataract left eye - Colitis lymphocytic - Crohn's disease (HCC) - Dental caries - Depression - Diverticulosis - Dyslipidemia - Dysuria - Exanthematous disorder - Eye cancer ([facility]) - Fibromyalgia 1991 - Gastroesophageal reflux disease - Glossodynia - Hand joint pain - High cholesterol - History of pneumonia as a child - Hyperlipidemia - Increased frequency of urination - 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 AHI 13.8 - Mild obstructive sleep apnew exacerbated to the moderate degree in REM sleep - OCD (obsessive compulsive disorder) - On clinical nurse drug therapy - Osteoporosis 1991 - Osteoporosis - depression 1958 - Premature atrial contraction - Raynaud's disease 05/23/2006 - Restless leg syndrome - Restless leg syndrome - Rheumatoid arthritis ([facility]) 07/30/2011 - SCC (squamous cell carcinoma), face 06/04/2017 done by - liquid nitrogen. scc called [facility] - Sjogren's disease ([facility]) [facility] - Sjogren's disease ([facility]) 2005 - Tear film insufficiency - Urinary tract infectious disease - Vitamin D deficiency - Vitamin D deficiency PAST SURGICAL HISTORY Procedure Laterality Date - APPENDECTOMY 1954 [place] - APPENDECTOMY - BACTERIAL AG DETECT CSF () 1936 - CHOLECYSTECTOMY 05/07/2005 Dr.Robert Nam - CLIN DEPRESSION SCREEN DOC - COLONOSCOPY 11/2010 polyps, inflammation - CT ABDOMEN - CYSTOSCOPY 01/19/2008 - [facility]AGNOSTIC OR [facility]ERA - IPAS - EKG 05/11/2015 SR with LAMABEL Chopra - ENDOSCOPY PROC 1977 [place], [place] - EYE SURGERY PROCEDURE 12-07-2015 Pars plana vitrectomy, endolaser, air fluid exchange, left eye - HYSTERECTOMY HX 03/18/2002 Dr.Mark Shah - LAP REPAIR BLADDER INJURY 03/18/2002 - MRI BRAIN W AND W/O - PAST SURGICAL HISTORY OF 07/2014 squamous cell exc rt. 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 - PULMONARY FUNCTION TEST 01/04/2014 - RECTAL REPAIR W OR W/O MESH 03/18/2002 - REMOVAL ADENOIDS,PRIMARY,<12 Y/O Adenoidectomy - REMOVAL OF TONSILS,<12 Y/O Tonsillectomy - RETROGRADE PYELOGRAM 01/19/2008 bilateral - SPINAL FLUID TAP, DIAGNOSTIC 1955 [facility] - TONSILLECTOMY HX 04/03/42 [facility] - VAGINAL HYSTERECTOMY W/VAGINAL/BLADDER REP 2001 A/P repair - VITRECTOMY,MECHANICAL Left 12/07/2015 PPV (Pars Plana Vitrectomy) FAMILY HISTORY Problem Relation Age of Onset - Diabetes Father - Heart Father - Stroke Father - Cataract Father - Cataract Mother - other (parkinson's) Mother - Diabetes Paternal Aunt - Diabetes Paternal Uncle - Breast Cancer Sister - other (sarcoidosis) Daughter - Asthma Other - Cancer Other - Hypertension Other - Osteoporosis Other - other (crohn's) Other - other (Alcoholism) Other - other (Diabetes mellitus) Other - other (Osteoarthritis) Other - other (Rheumatologic disorder) Other - other (Systemic lupus) Other Social History Substance Use Topics - Smoking status: Never Smoker - Smokeless tobacco: Never Used - Alcohol use No Past medical history, appointments, medications, allergies reviewed. Pertinent Lab/Diagnostic Studies are reviewed and discussed today Current Outpatient Prescriptions: - clonazePAM (KLONOPIN) 0.5 mg tablet - gabapentin (NEURONTIN) 300 mg capsule - pramipexole (MIRAPEX) 0.25 mg tablet - Benzonatate 200 mg capsule - oxyCODONE-acetaminophen (PERCOCET) 5-325 mg tablet - hydroxychloroquine (PLAQUENIL) 200 mg tablet - pilocarpine (SALAGEN, PILOCARPINE,) 5 mg tablet - ergocalciferol, vitamin D2, (VITAMIN D) 50,000 unit capsule - fluticasone (FLONASE) 50 mcg/actuation nasal spray - venlafaxine ER (EFFEXOR XR) 75 mg 24 hr capsule - clindamycin (CLEOCIN) 150 mg capsule - atorvastatin (LIPITOR) 10 mg tablet - PEG 400-propylene glycol (SYSTANE) 0.4-0.3 % ophthalmic solution - melatonin 3 mg - ondansetron orally disintegrating (ZOFRAN ODT) 4 mg disintegrating tablet - BENEFIBER, WHEAT DEXTRIN, ORAL - omeprazole (PRILOSEC) 20 mg capsule - COMPOUNDED PRESCRIPTION - aspirin, enteric coated (ASPIRIN, ENTERIC COATED) 81 mg EC tablet - Calcium Carbonate (CALCIUM ANTACID) 320 mg (750 mg) chew - Calcium Citrate-Vitamin D3 (CITRACAL+D) 315-250 mg-unit tab - Flaxseed Oil oil - Multivitamins-Iron tab - Saliva Substitution Combo No.5 (NEUTRASAL) 538 mg pwpk - VITAMIN B COMPLEX ORAL - docusate sodium (COLACE) 100 mg capsule - polyethylene glycol 3350 (MIRALAX) 17 gram/dose powder - cycloSPORINE (RESTASIS) 0.05 % ophthalmic emulsion - camphor-menthol (SARNA ANTI-ITCH) lotion Review of Systems CONSTITUTIONAL: No fevers, chills night sweats, unintended weight loss CARDIOVASCULAR: No chest pain, dyspnea, palpitations, orthopnea, PND, ankle edema. PULM: No dyspnea, unexplained cough. GI: No dysphagia/odynophagia, problematic reflux, constipation, diarrhea, changes in stool habits, hematochezia, melena. : No new urinary complaints, including dysuria, gross hematuria or pyuria. NEURO: No new balance problems, peripheral weakness/paresthesias or numbness of concern. Physical Exam BP 130/72 (BP Site: Left Arm, BP Position: Sitting, BP Cuff Size: Regular Adult) Pulse 84 Resp 12 Ht 149.9 cm (4' 11) Wt 48.5 kg (107 lb) SpO2 100% BMI 21.61 kg/m? General appearance: Well appearing, alert, in no acute distress, well nourished. Skin: Skin color, texture, turgor normal, no suspicious rashes or lesions Head: Normocephalic, no masses, lesions, tenderness or abnormalities Eyes: Anicteric sclera. Pupils are equally round and reactive to light. Extraocular movements are intact. Lungs: Lungs clear to auscultation. No wheezing, rhonchi, rales Heart: RRR without murmur, gallop, or rubs. Extremities: No deformities, edema, skin discoloration, clubbing or cyanosis. Good capillary refill. ASSESSMENT/PLAN: 1. Whole body pain - ICD9: 780.96, ICD10: R52 (primary diagnosis) Went over the side effect profile for the drug with the patient, mentioned every one of it , discussed appropriate concerns , alternatives and benefits of the drug, Patient tried to suggest she needs more medication of opiates but is strongly discouraged her from it. - VENLAFAXINE ER 150 MG CAPSULE,EXTENDED RELEASE 24 HR 2. Spondylosis of lumbar region without myelopathy or radiculopathy - ICD9: 721.3, ICD10: M47.816 - OXYCODONE-ACETAMINOPHEN 5 MG-325 MG TABLET 3. RLS (restless legs syndrome) - ICD9: 333.94, ICD10: G25.81 - PRAMIPEXOLE 0.25 MG TABLET 4. Hyperlipidemia, unspecified hyperlipidemia type - ICD9: 272.4, ICD10: E78.5 - good control - Continue current medication. 5. Choroid melanoma of left eye (HCC) - ICD9: 190.6, ICD10: C69.32 6. Fibromyalgia - ICD9: 729.1, ICD10: M79.7 - VENLAFAXINE ER 150 MG CAPSULE,EXTENDED RELEASE 24 HR 7. Elevated blood sugar - ICD9: 790.29, ICD10: R73.9 ANYI IRVING MD Referring Provider: ANYI IRVING [[id number]] Allergies As of Date: 07/20/2018 Noted Allergy Reaction ZOLOFT (SERTRALINE) 02/26/2015 6 - Diarrhea Comments: hospitalized for week BACTRIM DS (SULFAMETHOXAZOLE-TRIM*02/26/2015 1 - Mental Status Change 8 - GI Upset CELEXA (CITALOPRAM) 02/26/2015 6 - Diarrhea CODEINE 04/16/2010 8 - GI Upset Comments: nausea CONTRAST DYE 04/16/2010 16 - Unknown Comments: 07/02/18: Patient states ankle swelling is the only reaction and is unsure if it wasn't a coincidence CYMBALTA (DULOXETINE) 04/16/2010 6 - Diarrhea IODINE AND IODIDE CONTAINING PROD*03/13/2016 16 - Unknown Comments: Ankle swelling LAMICTAL (LAMOTRIGINE) 04/16/2010 14 - Other: See Comments Comments: [place] very drugged Pt. States the same thing happened in 2006 as well. MED-HIST 03/13/2016 14 - Other: See Comments Comments: prednisolone opthalmic MEDROL (METHYLPREDNISOLONE) 02/26/2015 2 - Rash PENICILLINS 11/25/2004 16 - Unknown Comments: Unknown reaction- was told as a child. PHENERGAN (PROMETHAZINE HCL) 04/16/2010 14 - Other: See Comments Comments: Involuntary body movements, mostly in feet and legs PREDNISOLONE ACETATE 12/28/2015 5 - Intolerance Comments: Itching and swelling REGLAN (METOCLOPRAMIDE HCL) 04/16/2010 14 - Other: See Comments Comments: Involuntary body movements in different parts of the body ZOLOFT (SERTRALINE HCL) 03/13/2016 6 - Diarrhea Date Reviewed: 07/20/2018 Reviewed by: Yanet Mandujano LPN - Fully Assessed Reason for Visit: Established Patient [175] Cmt: 4 month follow up- not feeling good,headache Primary Visit Diagnosis:Whole body pain [R52] Other Visit Diagnoses:Spondylosis of lumbar region without myelopathy or radiculopathy [M47.816] RLS (restless legs syndrome) [G25.81] Hyperlipidemia, unspecified hyperlipidemia type [E78.5] 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] Fibromyalgia [M79.7] Elevated blood sugar [R73.9] Order(s):oxyCODONE-acetaminophen (PERCOCET) 5-325 mg tabletTake 0.5 tablets by mouth twice daily as needed for up to 30 days. Earliest Fill Date: 07/20/18Disp: 30 tabletRfl: 0 pramipexole (MIRAPEX) 0.25 mg tabletTake 0.5 tablets by mouth four times daily. At 3:30, 6,8 and 10 pm.Disp: 180 tabletRfl: 0 venlafaxine ER (EFFEXOR XR) 150 mg 24 hr capsuleTake 1 capsule by mouth once daily.Disp: 30 capsuleRfl: 2 HGB A1C [[id number]] Order #: [id number] FUTURE Prescriptions as of 07/20/2018 Sig: OXYCODONE-ACETAMINOPHEN 5 MG-* Take 0.5 tablets by mouth twi* PRAMIPEXOLE 0.25 MG TABLET Take 0.5 tablets by mouth fou* VENLAFAXINE ER 150 MG CAPSULE* Take 1 capsule by mouth once * CLONAZEPAM 0.5 MG TABLET Take 0.5 tablets by mouth savage* GABAPENTIN 300 MG CAPSULE Take 1 capsule by mouth twice* BENZONATATE 200 MG CAPSULE Take 1 capsule by mouth three* HYDROXYCHLOROQUINE 200 MG TAB* Take by mouth once daily. PILOCARPINE 5 MG TABLET Take 1 tablet by mouth three * ERGOCALCIFEROL (VITAMIN D2) 5* Takes 1 time monthly FLUTICASONE 50 MCG/ACTUATION * Use 2 Sprays in each nostril * CLINDAMYCIN HCL 150 MG CAPSULE Take 1 capsule by mouth once * ATORVASTATIN 10 MG TABLET Takes 5 mg every other day PEG 400-PROPYLENE GLYCOL 0.4 * Use 1 Drop in both eyes as ne* MELATONIN 3 MG TABLET Take 1 tablet by mouth daily * ONDANSETRON 4 MG DISINTEGRATI* Take 1 tablet by mouth every * BENEFIBER (WHEAT DEXTRIN) ORAL Take by mouth. OMEPRAZOLE 20 MG CAPSULE,TANNA* Take 1 capsule by mouth once * COMPOUNDED PRESCRIPTION Hospital bed Dx: M54.6, M19.9* ASPIRIN 81 MG TABLET,DELAYED * Take 81 mg by mouth once judy* CALCIUM CARBONATE 320 MG CALC* Take by mouth. CALCIUM CITRATE-VITAMIN D3 31* 4 tablet(s) By mouth Daily FLAXSEED OIL MULTIVITAMIN WITH IRON TABLET SALIVA SUBSTITUTE COMBO NO.5 * Use as instructed. 1 packet(* VITAMIN B COMPLEX ORAL Take by mouth. DOCUSATE SODIUM 100 MG CAPSULE Take 1 capsule by mouth twice* POLYETHYLENE GLYCOL 3350 17 G* Takes as needed for constipat* CYCLOSPORINE 0.05 % EYE DROPS* 1 Drop twice daily. CAMPHOR-MENTHOL 0.5 %-0.5 % L* Apply 1 application to affect* Problem List As Of Date 07/20/2018 Noted Resolved PVCs (premature ventricular contractions)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 disease [I73.00] INVALID FOR* More... Hyperlipidemia [E78.5] INVALID FOR* More... 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 Malignant neoplasm of left choroid (HCC) [C69.3*INVALID FOR* Vitreous hemorrhage of left eye (HCC) [H43.12] INVALID FOR* Fibromyalgia [M79.7] Osteoporosis [M81.0] Rheumatoid arthritis (HCC) [M06.9] INVALID FOR* More... 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 Weakness of neck [M53.82] INVALID FOR* Radiation retinopathy, initial encounter [T66.X*INVALID FOR* MARILEE (obstructive sleep apnea) [G47.33] INVALID FOR* Weakness of both hips [R29.898] INVALID FOR* Prescriptions ordered this encounter Disp Refills Start End IV CONTRAST (RADIOLOGY PROCEDURE) 1 Ea* 0 07/02/2018 07/03/2018 Class: In Office Sig: CT Chest PE -Inject, intravenously, once for 1 dose.No IV access, insert saline lock prior to the beginning of sedation, infusion, injection of imaging exam. Discontinue saline lock post exam. If Pt. has a central line or IVAD, may access for administration according to line specific nursing protocol. Once exam is complete flush line and de-access according to line specific nursing protocol in the CT contrast administration guidelines link. BENZONATATE 200 MG CAPSULE 21 c* 0 07/02/2018 Route: ORAL Sig: Take 1 capsule by mouth three times daily as needed. Encounter Status:Closed by KATHIFAITH DAVID on 07/02/18 HEMOGRAM/DIFF Collected: 06/21/2018 Status: F Source: [facility] 7:22 PM HEALTH SYSTEM REPOSITORY TYPE CODE TESTS RESULT OUT OF REFERENCE UNITS RANGE LAB WBC(LOINC) 3.98-10.04 thou/cmm WBC 7.12 LAB RBC(LOINC) 3.93-5.22 mil/cmm RBC 4.97 LAB HGB(LOINC) 11.2-15.7 g/dL Hgb 13.8 LAB HCT(LOINC) 34.1-44.9 % Hct 44.3 LAB MCV(LOINC) 79.4-94.8 fl MCV 89.1 LAB MCH(LOINC) 25.6-32.2 pg MCH 27.8 LAB MCHC(LOINC 31.6-34.8 % ) Low MCHC 31.2 LAB RDW(LOINC) 11.7-14.4 % RDW 13.5 LAB RDWSD(LOIN 36.4-46.3 fl C) RDW SD 43.9 LAB PLT(LOINC) 182-369 thou/cmm Platelet 266 LAB MPV(LOINC) 9.4-12.3 fl MPV 10.7 LAB SEG(LOINC) % Seg Neutrophil 68.5 LAB IGRE(LOINC % ) Immature Grans 0.30 LAB LYMPH(LOIN % C) Lymphocyte 22.5 LAB MNO(LOINC) % Monocyte 7.3 LAB EOSIN(LOIN % C) Eosinophil 1.3 LAB BASO(LOINC % ) Basophil 0.1 LAB SEGN(LOINC 1.56-6.13 thou/cmm ) Abs. Neut (ANC) 4.88 LAB IGAB(LOINC 0.00-0.05 thou/cmm ) Abs Immature Grans 0.02 LAB LYMN(LOINC 1.18-3.74 thou/cmm ) Abs. Lymph 1.60 LAB MONON(LOIN 0.27-0.70 thou/cmm C) Abs. Kimball 0.52 LAB EOSN(LOINC 0.00-0.31 thou/cmm ) Abs. Eosin 0.09 LAB BASON(LOIN 0.01-0.08 thou/cmm C) Abs. Baso 0.01 Performed By: #### CBCD1 #### [facility] [address] [place] [address] COMPREHENSIVE PANEL Collected: 06/21/2018 Status: F Source: [facility] 7:22 HEALTH SYSTEM REPOSITORY TYPE CODE TESTS RESULT OUT OF REFERENCE UNITS RANGE LAB NA(LOINC) 136-145 mEq/L Sodium Blood 140 LAB K(LOINC) 3.5-5.1 mEq/L Potassium Blood 4.9 LAB CL(LOINC) 98-107 mEq/L Chloride Blood 103 LAB CO2(LOINC) 21-32 mEq/L CO2 Blood 32 LAB GLU(LOINC) 70-99 mg/dL Glucose High Blood 142 LAB BUN(LOINC) 7-18 mg/dL BUN Blood 12 LAB CREA(LOINC 0.51-0.95 mg/dL ) Creatinine Blood 0.73 LAB CA(LOINC) 8.5-10.1 mg/dL Calcium Blood 9.4 LAB ALB(LOINC) 3.4-5.0 g/dL Albumin Blood 4.2 LAB TP(LOINC) 6.4-8.2 g/dL Total Protein 7.5 LAB AST(LOINC) 9-37 U/L AST-SGOT Blood 30 LAB ALT(LOINC) 12-78 U/L ALT-SGPT Blood 29 LAB ALKP(LOINC 46-116 U/L ) Alk Phosphatase 99 LAB BILIT(LOIN 0.2-1.0 mg/dL C) Total Bilirubin 0.2 LAB ANGAP(LOIN 8-16 C) Anion Gap 10 Performed By: #### P14 #### [facility] [address] [address] C3 Collected: 06/21/2018 Status: F Source: [facility] 7:[facility] HE[facility] SYSTEM REPOSITORY TYPE CODE TESTS RESULT OUT OF RANGE REFERENCE UNITS LAB C3(LOINC) 90.0-180.0 mg/dL C3 140.0 Performed By: #### C3 #### [facility] [address] [address] C4 Collected: 06/21/2018 Status: F Source: [facility] 7:22 PM HEALTH SYSTEM REPOSITORY TYPE CODE TESTS RESULT OUT OF RANGE REFERENCE UNITS LAB C4(LOINC) 10.0-40.0 mg/dL C4 29.0 Performed By: #### C4 #### [place] [address] RHEUMATOID FACTOR Collected: 06/21/2018 Status: F Source: [facility] 7:22 HEALTH SYSTEM REPOSITORY TYPE CODE TESTS RESULT OUT OF REFERENCE UNITS RANGE LAB RF1(LOINC) 0.0-15.0 IU/mL Rheumatoid < 10.0 Factor Performed By: #### RF1 #### [place] [address] MDRD GFR Collected: 06/21/2018 Status: F Source: [address] HEALTH SYSTEM REPOSITORY TYPE CODE TESTS RESULT OUT OF RANGE REFERENCE UNITS LAB GFRFN(LOINC >60mL/min/1.73m ) 2 eGFR >60 Result Comment: If the patient is , multiply the result by 1.210. Performed By: #### GFR #### [place] [address] TOTAL 25-OH VITAMIN Collected: 06/21/2018 Status: F Source: [facility] D 7:[facility] HE[facility] SYSTEM REPOSITORY TYPE CODE TESTS RESULT OUT OF REFERENCE UNITS RANGE LAB 25VD1(LOINC 30.0-100.0 ng/mL ) Total 25-OH 63.0 Vitamin D Performed By: #### 25VD1 #### [place] [address] PTH, INTACT Collected: 06/21/2018 Status: F Source: [facility] 7:[facility] SYSTEM REPOSITORY TYPE CODE TESTS RESULT OUT OF REFERENCE UNITS RANGE LAB PTHI2(LOINC 18.5-88.0 pg/mL ) PTH, Intact 44.3 Performed By: #### PTHI2 #### [place] [address] GORAN BY IFA SCREEN Collected: 06/21/2018 Status: F Source: [facility] 7:[facility] SYSTEM REPOSITORY TYPE CODE TESTS RESULT OUT OF REFERENCE UNITS RANGE LAB ANAX(LOINC) GORAN by IFA SEE BELOW Screen Result Comment: GORAN Positive AB NEGAT Normal range : negative at <1:80 serum dilution. GORAN Titer 1:80 AB NEGAT GORAN Pattern SEE BELOW Atypical speckled Performing Laboratory: [facility] [address] [place] [address] Performed By: #### ANAX #### [facility] [address] [id number] SJOGREN ANTIBODIES Collected: 06/21/2018 Status: F Source: [facility] 7:22 PM HEALTH SYSTEM REPOSITORY TYPE CODE TESTS RESULT OUT OF REFERENCE UNITS RANGE LAB SJOX(LOINC ) Sjogren Antibodies SEE BELOW Result Comment: SSA Antibody 0.4 <1.0 AI Negative Negative: <1.0 AI Positive: >0.9 AI SSB Antibody <0.2 <1.0 AI Negative Negative: <1.0 AI Positive: >0.9 AI Performing Laboratory: [facility] [address] [place] [address] Performed By: #### SJOX #### [facility] [address] [place] [address] SACROILIAC JOINTS LESS Observed: 06/21/2018 Status: F Source: [employer] [facility] 3 VIEWS [id number] 1:57 PM HEALTH SYSTEM REPOSITORY Performed at [facility] APPROVED BY: BRIONNA PERES MD EXAM: SACROILIAC JOINTS CLINICAL INDICATION: Osteoporosis. Back pain. COMPARISON: None available FINDINGS: Frontal and [place] views of the sacroiliac joints. Sacroiliac joints appear smoothly marginated without widening or irregularity. Mild para-articular sclerosis along the iliac side of both SI joints with mild inferior spurring is mechanical/degenerativ e in nature. No para-articular erosive change. Hip joints are not narrowed. Symphysis pubis is maintained. No abnormality in the soft tissues. IMPRESSION: 1. Mild mechanical/degenerative changes of both sacroiliac joints. No radiographic findings of inflammatory sacroiliitis. LUMBAR LIMITED 2V Observed: 06/21/2018 Status: F Source: [employer] [facility] AP/LAT 1:56 PM HEALTH SYSTEM REPOSITORY Performed at [facility] APPROVED BY: BRIONNA PERES MD LUMBAR SPINE CLINICAL INDICATION: Osteoporosis. Back pain. COMPARISON: Lumbar spine 02/21/2016. MRI lumbar spine 03/25/2016 FINDINGS: Frontal and lateral views of the lumbar spine. The lateral view is limited due to multiple superimposed structures. Mild thoracolumbar scoliosis convex to the right. Bones are of diffusely decreased density. Chronic compression fractures at L1, L 2, L4 and L5 appears stable. No new compression deformity. Disc height loss at L3-4 and L4-5 is consistent with degenerative disc disease. There is grade 1 spondylolisthesis at L3-4, stable. Pedicle s are intact. Degenerative facet arthrosis at L4-5 and L5-S1 noted. Mild degenerative changes of the sacroiliac joints and right hip. Cholecystectomy clips are noted in the right upper quadrant. IMPRESSION: 1. Chronic compression fractures at L1, L2, L4 and L5, stable. No new compression deformity. 2. Bones are of diffusely decreased density. 3. Degenerative disc disease at L3-4 and L4-5. Grade 1 spondylolisthesis at L3-4, stable. Counting reference: Lumbosacral junction. For the purposes of this report, L4-5 is considered the level of the iliac crest. THORACIC SPINE 2 Observed: 06/21/2018 Status: F Source: [place] [id number] 1:56 PM HEALTH SYSTEM REPOSITORY Performed at [facility] APPROVED BY: BRIONNA PERES MD THORACIC SPINE CLINICAL INDICATION: Back pain. Osteoporosis. COMPARISON: Chest radiograph 05/24/2015. Thoracic spine 08/23/2013 FINDINGS: Frontal, lateral and lateral swimmer's views obtained. Thoracolumbar scoliosis convex to the right is noted. Vertebral alignment is otherwise normal. There is an age indeterminate compression fracture at T8 which is new since 2012. No other compression d eformity in the thoracic spine. Pedicles are intact. There is mild disc space narrowing and endplate spurring at multiple levels consistent with degenerative disc disease. Bones of diffusely decreased density. No evidence of a paraspinal mass. Cholecystectomy clips present in the right upper quadrant. IMPRESSION: 1. Age indeterminate compression fracture at T8 new from prior studies. 2. Thoracolumbar scoliosis convex to the right. Bones are diffusely decreased density. Degenerative disc disease at multiple levels in the thoracic spine. 3. Bones are of diffusely decreased density. PROGRESS Observed: 06/21/2018 Status: COMPLETED Source: [place] 10:39 AM CLINIC OTHER CAMPUS REPOSITORY HNO ID: [id number] Author: Fely Segovia Service: (none) Author Type: Physician Type: Progress Notes Filed: 06/21/2018 2:13 PM Note Text: RHEUMATOLOGY PROGRESS NOTE Patient is here for a follow up visit for Patient presents with: Joint Pain: continued pain in multiple locations. HPI: Michael Molina is a 82 year old female who presents to [facility] care for osteoporosis, Sjogren's syndrome, ankylosing spondylitis. 82 yo F with PMH as above, retinal melanoma, squamous cell carcinoma s/p excision, fibromyalgia, chronic headaches/migraines, MARILEE non-compliant with CPAP, restless leg syndrome who presents to [facility]. She was previously seeing Dr. Montes, project control officer, and was diagnosed with Sjogren's syndrome, , osteoporosis. At presentation she had arthralgias, dry eyes, dry mouth. She has been treated with Plaquenil, Restasis, Humira (went off due to eye cancer), colchicine (for suspected Behcet's, taken off), Prolia (had reaction-flu like symptoms), Boniva. Is still currently on Plaquenil, salagen, restasis. Today she complains of joint pain-hands, wrists, hips, entire spine, ankles, feet, shoulders. Back pain is worse with movement or activity, improved with rest. All joint pain feels worse after use, pain worst at the end of the day. Takes oxycodone and tylenol for pain. Has joint swelling in hands occasionally. Has morning stiffness that lasts <10 minutes. Denies any recent falls. Still has dry eyes, dry mouth. Takes Restasis And pilocarpine 1/2 tablet which help with her symptoms. Admits to extreme life stressors as her lives in a facility with end stage dementia. Previous imaging has all shown DJD and osteoporosis but she refuses to restart bisphosphonates as she thinks they caused her cavities. She also believes they may cause cancer and since she has a significant PMH of cancer she wants to avoid them. Has done PT in the past, helped. Has seen PM in the past, had Kenalog injections in the past which helped with the pain. Has multiple compression fractures- L1-5, T8 Was previously on Prolia but did not like side effects (flu- like symptoms) and refuses to take it. 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 Given the diagnosis of SS and previously. Appears to have significant DJD and osteoporosis on imaging, with multiple compression fractures. Currently on plaquenil, restasis, salagen. 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) - Bleeding ulcer - Bowel trouble 04/2003 4 BM's in month - Bronchitis 2014 - Cataract left eye - Colitis lymphocytic - Crohn's disease (HCC) - Dental caries - Depression - Diverticulosis - Dyslipidemia - Dysuria - Exanthematous disorder - Eye cancer ([facility]) - Fibromyalgia 1991 - Gastroesophageal reflux disease - Glossodynia - Hand joint pain - High cholesterol - History of pneumonia as a child - Hyperlipidemia - Increased frequency of urination - 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 scc called [facility] - Sjogren's disease (HCC) [facility] - Sjogren's disease ([facility]) 2005 - Tear film insufficiency - Urinary tract infectious disease - Vitamin D deficiency - Vitamin D deficiency PAST SURGICAL HISTORY Procedure Laterality Date - APPENDECTOMY 1954 [facility] - APPENDECTOMY - BACTERIAL AG DETECT CSF () 1937 - CHOLECYSTECTOMY 05/07/2005 Dr.Robert Nam - CLIN DEPRESSION SCREEN DOC - COLONOSCOPY 11/2010 polyps, inflammation - CT ABDOMEN - CYSTOSCOPY 01/19/2008 - [facility] DIAGNOSTIC OR THERA - IPAS - EKG 05/11/2015 SR with LAMABEL Chopra - ENDOSCOPY PROC 1977 [place] - EYE SURGERY PROCEDURE 12-07-2015 Pars plana vitrectomy, endolaser, air fluid exchange, left eye - HYSTERECTOMY HX 03/18/2002 Dr.Mark Shah - LAP REPAIR BLADDER INJURY 03/18/2002 - MRI BRAIN W AND W/O - PAST SURGICAL HISTORY OF 07/2014 squamous cell exc rt. 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 - PULMONARY FUNCTION TEST 01/04/2014 - RECTAL REPAIR W OR W/O MESH 03/18/2002 - REMOVAL ADENOIDS,PRIMARY,<12 Y/O Adenoidectomy - REMOVAL OF TONSILS,<12 Y/O Tonsillectomy - RETROGRADE PYELOGRAM 01/19/2008 bilateral - SPINAL FLUID TAP, DIAGNOSTIC [facility] - TONSILLECTOMY HX 04/03/42 [facility] - VAGINAL HYSTERECTOMY W/VAGINAL/BLADDER REP 2001 A/P repair - VITRECTOMY,MECHANICAL Left 12/07/2015 PPV (Pars Plana Vitrectomy) History Review: I have reviewed and modified as needed, the following during this visit: Allergies, Past Medical History, Past Surgical History, Past Family History, Past Social History. Review of Systems CONSTITUTIONAL: Recent Weight Gain: No Recent Weight Loss: No Fatigue: YES daytime fatigue after a few hours Weakness: No Fever: YES night sweats once a week EYES: Pain: No Redness: No Loss of vision: No Double or blurred vision: No Dryness: YES Feels like something in eye: YES 2/2 dry eye Itching eyes: No BZFR-ZEKY-RJCNC-THROAT: Sores in mouth: YES has one currently but previously had multiple, mostly on tongue Dryness of mouth: YES Difficulty in swallowing: No CARDIOVASCULAR: Pain in chest: No Irregular heart beat: No RESPIRATORY: Shortness of breath: No Difficulty in breathing at night: No Swollen legs or feet: No Cough: No Cough of blood: No Wheezing (asthma): No GASTROINTESTINAL: Nausea: No Vomiting of blood or coffee ground material: No Stomach pain relieved by food or milk: No Jaundice: No Increasing constipation: No Persistent diarrhea: No Blood in stools: No Black stools: No Heartburn: YES epigastric pain MUSCULOSKELETAL: Morning Stiffness: Yes, Joint Pain: Yes, Muscle Weakness: Yes, Muscle Tenderness: No, Joint Swelling: Yes, Joints affected in the last 6 months: List of joints affected in the last 6 months: shoulder wrist fingers knee ankle foot and Back Pain: Yes INTEGUMENTARY: Easy Bruising: YES Rash: No Hives: No Sun sensitive: No Tightness: No Nodules/bumps:No Hair loss: No Color changes of hands or feet in the cold: YES has Raynaud's NEUROLOGICAL SYSTEM: Headaches: YES chronic headaches Dizziness: No Fainting: No Muscle spasm: No Loss of consciousness: No Sensitivity or pain of hands and/or feet: No Memory loss: No Night sweats: YES once a week PSYCHIATRIC: Anxiety: YES Poor sleep: YES sleeps for 4 hours and then cannot get back to sleep Ht 149.9 cm (4' 11) Wt 48.1 kg (106 lb) BMI 21.41 kg/m? Physical Exam GENERAL: Well appearing, alert, comfortable, in no acute distress, well-hydrated, well nourished. HEENT: Negative for external ears normal. Eye Exam normal. External nose normal, no nasal ulcer or throat ulcer. +oral erythema on inner bottom lip but no obvious ulcer seen NECK: NECK Supple, no adenopathy; thyroid symmetric, normal size CARDIAC: regular rate and rhythm, No murmur asculated. and Equal peripheral pulses RESPIRATORY: Lungs clear to auscultation. No wheezing, rhonchi, rales VASCULAR: RRR without murmur, gallop, or rubs. No ectopy. ABDOMEN: Soft, non tender. BS active. No masses or organomegaly. NEURO: Motor and sensory exam normal SKIN: Negative for alopecia, skin rash, malar rash, skin lesion, skin ulcer, pits, thickening, color changes, telangiectasias, nail changes, nail ridging, nail pitting, onycholysis MUSCULOSKELETAL: DIPS: Abnormal, Heberden's nodes and mild tenderness to palpation in a few joints PIPS: Abnormal, Avtar's nodes and mild tenderness to palpation in a few joints MCPs: Abnormal, mild tenderness to palpation in a few joints Wrists: Abnormal, tender to palpation Elbows: Normal Shoulders: Normal C-Spine: Abnormal, pronounced kyphosis of C spine with tenderness of spinous processes Hips: Normal Knees: Normal Ankles: Abnormal, tenderness to palpation MTPs / Toes: Normal Lab Results: Glucose 86 11/17/2017 ALT 20 11/17/2017 WBC 7.61 11/17/2017 Hemoglobin 13.5 11/17/2017 Platelet Count 262 11/17/2017 WSR 2 08/23/2013 CRP <0.29 08/23/2013 Serology: CK negative Radiology: DXA 2018- osteoporosis Hand XR- OA C spine XR- OA Hip XR- negative NM Whole Body scan- multiple compression fractures L1-L5 and T8 Assessment and Plan (M81.0) Osteoporosis, unspecified osteoporosis type, unspecified pathological fracture presence (primary encounter diagnosis) (M35.00) Sicca syndrome, unspecified (HCC) (M25.50) Pain in joint, multiple sites 82 yo F with previously diagnosed ankylosing spondylitis, sjogren's syndrome, osteoporosis, fibromyalgia who presents to [facility]. Her symptoms include fatigue, arthralgias, dry eyes, dry mouth. Physical exam reveals joint tenderness in her hands with Heberden and Avtar nodes and kyphosis of her spine. Imaging has shown DJD and osteoporosis. There are no current serologies in the chart. From these findings it appears that her arthralgias and back pain are likely related to osteoarthritis and compression fractures 2/2 osteoporosis. She does not have features of inflammatory arthropathy (prolonged morning stiffness, pain improvement with activity, swelling) and has clinical findings consistent with OA (pain worse at end of day and with activity). She already sees Pain Management and should continue this for adequate pain control. She has osteoporosis and would benefit from treatment including bisphosphonates, but the patient refuses to re-try these medications. She understands the risks of untreated osteoporosis and the fact that her compression fractures are likely related to untreated osteoporosis and accepts these risks. She will think about trying Reclast and we will discuss this further at next visit. Her Sjogren's appears to be well controlled with eye drops and salivation stimulants. She is currently having no side effects from these medications. Plaquenil can be continued for arthralgias and fatigue related to SS, although as mentioned above her arthralgias are likely from OA. We will continue Plaquenil for now. For her ankylosing spondylitis diagnosis, there is no imaging of the SI joints in the chart. Additionally, while she has back pain she does not appear to have inflammatory back or SI joint pain. We will order imaging today to determine if she has any SI joint involvement. If she truly has we would suspect joint damage of the SI joints in an 82 year old patient. We will also order the labs below as there are no serologies in the chart. If she has with SI joint involvement she will need more aggressive treatment. Office Visit on 06/21/18 -XR LUMBAR LIMITED 2V AP/LAT -XR SACROILIAC JOINTS 2V AP PELVIS/FERGUESON -CBC + DIFF -COMP METABOLIC PANEL -PTH INTACT BLD -VITAMIN D 25 HYDROXY -GORAN BY IFA SCREEN -SJOGREN ABS SSA/SSB -C3 COMPLEMENT BLD -C4 COMPLEMENT BLD -RHEUMATOID FACTOR BL Return in about 2 months (around 08/21/2018) for osteoporosis . Fely Segovia MD CNOV Observed: 06/21/2018 Status: COMPLETED Source: [place] 10:00 AM CLINIC OTHER CAMPUS REPOSITORY Office Visit ([facility]ATH) MICHAEL MOLINA ([id number]) 1935 F Date Time Provider Department 06/21/18 10:00 AM FELY SEGOVIA [facility]ATH During your visit today, we recorded the following information about you: Weight Height 48.1 kg 1.499 m Fely Segovia MD 06/21/2018 2:13 PM Signed RHEUMATOLOGY PROGRESS NOTE Patient is here for a follow up visit for Patient presents with: Joint Pain: continued pain in multiple locations. HPI: Michael Molina is a 82 year old female who presents to establish care for osteoporosis, Sjogren's syndrome, ankylosing spondylitis. 82 yo F with PMH as above, retinal melanoma, squamous cell carcinoma s/p excision, fibromyalgia, chronic headaches/migraines, MARILEE non- compliant with CPAP, restless leg syndrome who presents to [facility]. She was previously seeing Dr. Montes, project control officer, and was diagnosed with Sjogren's syndrome, , osteoporosis. At presentation she had arthralgias, dry eyes, dry mouth. She has been treated with Plaquenil, Restasis, Humira (went off due to eye cancer), colchicine (for suspected Behcet's, taken off), Prolia (had reaction-flu like symptoms), Boniva. Is still currently on Plaquenil, salagen, restasis. Today she complains of joint pain-hands, wrists, hips, entire spine, ankles, feet, shoulders. Back pain is worse with movement or activity, improved with rest. All joint pain feels worse after use, pain worst at the end of the day. Takes oxycodone and tylenol for pain. Has joint swelling in hands occasionally. Has morning stiffness that lasts <10 minutes. Denies any recent falls. Still has dry eyes, dry mouth. Takes Restasis And pilocarpine 1/2 tablet which help with her symptoms. Admits to extreme life stressors as her lives in a facility with end stage dementia. Previous imaging has all shown DJD and osteoporosis but she refuses to restart bisphosphonates as she thinks they caused her cavities. She also believes they may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 calcium per day if no history of renal calculi for adults 50 years and over. 2. 800 - 1000 International Units of vitamin D3 per day if no history of renal calculi for adults 50 years and over. 3. Weight bearing exercise 4. Discontinue smoking 5. Avoid excessive use of caffeine, soft drinks, and alcoholic beverages. The National Osteoporosis Foundation recommends that treatment be considered for patients with T-scores of -2 or lower (-1 or lower if patient at high risk for accelerated bone loss). PROGRESS Observed: 05/12/2018 Status: COMPLETED Source: [place] 11:41 AM [facility] OTHER CAMPUS REPOSITORY O ID: [id number] Author: Haider Montes Service: (none) Author Type: Physician Type: Progress Notes Filed: 05/12/2018 12:11 PM Note Text: Subjective History of Present Illness: General HPI: Michael is a very pleasant 82 female with a complex past medical history including long-standing fibromyalgia, osteoarthritis, previous diagnoses of RA on no specific treatment, previous diagnoses of Sjogren's around 2005, severe long-standing dry eyes, severe long-standing dry mouth, severe dental caries, history of colitis/possible Crohn's disease, vitamin D deficiency, severe osteoporosis status post Forteo for 2 years in the past, intolerant to p.o. 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 Pretty severe back pain. 'INITIAL visit: Michael reports suffering from are extremely dry eyes and dry mouth for many years, was finally diagnosed with Sjogren's around 2005. Over the years she has been on different treatment off and on, her Plaquenil was given and stopped several times, recently restarted around early 2010, and the dose was recently increased from 200 mg to 300 mg daily. She also takes Restasis eyedrops for many years, she uses Salagen for dry mouth 3 times a day. She had a significant flare May 2011 with extreme painful mouth and tongue ulcerations, told she had a Sjogren's flare, given a course of prednisone which didn't seem to help much. She continues to have extremely painful sore on her tongue with deep cracks. Was checked for possible yeast, and given nystatin which she is still using without help. She is asking for help she's quite miserable. Her joints hurts at times, mostly over both hands MCP PIP and DIP joints, both thumb base, she was even told she had RA, she is not on any specific treatment for it. For her osteoporosis she is not currently on any protection, recently was on IV Boniva, stopped around 2009. Numerous outside records, all reviewed in details. Including various labs, DEXA scan, her notes, etc. 05/25/13: Has not been doing well at all. A lot of stress, her with his dementia, worsening it seems, her daughter getting sicker with sarcoidosis. She is over wound and can't cope well enough. Was given an antidepressant, didn't seem to help. She continues with joint pain, mostly over her hands and low back. Not as severe as last time. Continues colchicine and Plaquenil. Continue Celebrex 100 mg daily. Had recent labs, reviewed together in details. Noted slightly elevated ferritin otherwise unremarkable. Continues Neurontin 600 mg daily. 08/23/13: NOT feeling well at all, ++fatigue/generalized weakness,+malaise,poor appetite/nausea/upset stomach/lost 5more lbs/had transient bld inurine.... had numerous tests:CTscans/BrainMRI/EGD..al ok?(per pt).. she feels quite miserable. Joints are not too bad! hands/knees/feet are not as bad. ++pain in low back/sides/occasional in B wrists. No rashes. She even stopped her Celebrex thinking it could be causing her stomach pain, no difference off it. Reviewed all of her available records. 03/01/14: Has not been doing well at all. Continues to have weight loss, continues to have abdominal pain and diarrhea, no blood in the stool. Continues to have extreme amount of fatigue, exhaustion, generalized weakness. No cancer or explanation to all of her symptoms. She's very miserable. Also having some more joint pain, both hands knees feet and low back. Hurting so bad over her sides. Both thumbs and the bases. Wondering what else to do. 05/31/14: Has been miserable. So much stress, hurting so bad all over her spine and body, it even hurts to do simple tasks, even folding laundry. She has exhaustion and fatigue, continues to have GI problems, complete workup did not seem to explain her symptoms. Her GI Dr. could not tell her why she's having lack of appetite diarrhea and pain.? Biopsies, I do not have for my review. She wanted to try Humira, she took only for 2 or 3 injections and stopped it since she couldn't tell if she was worse or what. She's now thinking she would like to try it again. She developed an unusual eruption on her right cheek last week, for no apparent reason, when she woke up, was not itchy or painful or burning (??) And it's resolved after about 2-3 days on its own, had less rash on her left cheek. She also was started on amitriptyline, just few days prior to the rash. It's the only thing that she did different. Has been off colchicine and she's wondering if it's making her worse to be off. Numerous questions and concerns all addressed. 08/09/14: Complex case, situation. Extensive amount of time needed to complete visit. Numerous issues concerns, symptoms problems, data, notes, etc. 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 Has not been doing well. Continues to be miserable with various symptoms. Continues to have dry eyes dry mouth and intermittent mouth sores not as severe as the previous years. Continues to have extreme fatigue some days worse than others. Continues to have pain all over her spine, also some days worse than others. Recently had a flare with extreme pain over her entire chest and neck, epigastric area? She did not seek any help or tension. This has slightly improved since. Continues to have pain in both hands, her legs. Low back and sides. She has been off colchicine. Wondering if she should return but reminded her about the diarrhea. She continues to have that intermittently. Continues to go through a tremendous amount of stress and pressure, caring for her with worsening behavior, Alzheimer's. Tried using Humira, only 4 shots, she thinks it made her worse, hurting more? And having bizarre symptoms. She got an alert from her insurance about its use? She had large notes taken which we reviewed together. She gave me a copy. 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 She is concerned about that as well. She is also very worried about Prolia. She missed her dose from last week. She believes Prolia is dangerous. It can cause pancreatic insufficiency as she read. Then she had pancreas insufficiency?? .. She's wondering about her bone density not improving, we reviewed her density together in great details. Noted the improvement of 4% in her spine and stable and her hip. Continues to have very low T. scores. 3.2. Explained her scores. Numerous other issues and concerns all reviewed together and addressed. 01/10/15: Since last seen she continues going through incredible amount of stressors, mostly caring for her with advancing worsening dementia. He's having hard time with his cognition and completing simple tasks. She continues to have stable pain everywhere, her entire spine, hands and feet. Seem to be not as bad as before, seem to be more tolerable in general. She continues to have significant dry mouth and frequent mouth sores, also not as bad as before, taking Salagen but it seems to be causing excessive sweating, and drooling. She denies any rashes, she continues to have diarrhea. Alternating with constipation. Recent ER visit for impaction. Has not been taking Celebrex. Has been taking Neurontin 400 mg nightly. She continues not to be on anything for her inflammatory arthritis, continues not to be on anything for her osteoporosis. Numerous issues concerns questions all addressed. 08/22/15: Prolonged visit. Numerous issues concerns and problems to review. She continues to struggle a lot with her health in general and her stressors. Continues to care for her with pretty advanced dementia, in and out from hospitals and nursing homes, most recently in a locked down facility. Each time she visits him she feels pretty bad when leaving. Continues to have significant dryness in her mouth, not as severe as when she first came, no significant mouth sores, wondering about Salagen, it makes her have a cold sweat and drooling, than the dryness return later. Continues with pain not as severe as before it seems, her hands CMC joints her entire spine and back, tolerable symptoms otherwise her knees ankles and feet. She stopped Celebrex a while ago. Continues Neurontin 400 mg. She doesn't want to take any more Prolia, makes her feel sick for a while after the injection. Doesn't seem to be working out but she remains very active and walking all the time. Recent labs reviewed together. 02/20/16: Very complex long visit. Numerous problems and issues, concerns, major updates, large amount of various topics to review and address. Has not been seen in a while. Since last seen she's been struggling a lot with her life in general. But was doing pretty decent with her pain and difficulties, until few days before , she was cleaning up few objects at home, moving things around, she started having some back pain, her helped her cracking upher back, she stopped since her pain got worse, was seen by 2 different physicians so far, over the past 2 weeks, x-rays were completed on February 04, she was told nothing showing on the x-ray, to go see chiropractor. So she had chiropractor visit which caused her an incredible amount of worsening pain. She also follow back with her PCP, February 10. She was given tizanidine. She's been taking that, she's feeling incredibly bad, terrible amount of pain, beyond miserable and unable to move at all, sits or stands or lay down. She had terrible time getting in the car to drive. She feels the pain over the entire midline spine, specially around her lower thoracic and upper lumbar. She has no significant tingling numbness weakness in her legs but she's weak overall from the pain. 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 Reviewed her x-ray from February 04, surprisingly showing L1 compression fracture, which was not present in her previous lumbar spine x-rays, previous to that was in August 2013. 05/01/2016: Prolonged visit today. Long time spent reviewing updates, her numerous imaging she completed since last seen, her frustration with her significant symptoms and pain, and apparently a major misunderstanding with our office staff..... She apparently was told when she called first week March 2016, very soon after her above appointment with me in February, she asked to be seen for severe back pain, that same day she called, might answer was at that time pretty compassionate and logical, to proceed with pain control, through pain management ideally given her significant fractures causing her pain, and to see orthopedic surgery for possible kyphoplasty or other interventions.. She apparently was told I refusedto see her!!! Which was the furthest from truth. I would not say I refused to see any of my patients, but always give up plan or reason, and if needed, always offer an appointment as soon as possible. Plus in her case, I would not have been able to help her at all, given her pain being from fractures, needing narcotics or other intervention. Keeping in mind, that I just saw her 2-1/2 weeks prior. Patient was terribly disappointed and upset with the staff telling her I refused to see her the same day and repeatedly we reviewed that during her visit today. She continues to have pretty severe pain, but she seemed a lot more comfortable sitting on the chair today compared to last time. She has not been able to wear any back brace. She had numerous imaging, reviewed them together. Noted multiple compression fractures, not only in L1, but seems to be pretty much all over her entire lumbar spine, L1-L2 L3-L4 all with compression fractures. She continues to be completely against going back on osteoporosis therapy, she does not want to use Prolia again. She believes it caused her significant flulike symptoms and infections. Reviewed all of her meds. 02/25/17: NOT seen in almost one year. Large topics reviewed during her visit with numerous updates, various medical conditions, discussions, counseling etc. etc. Since last seen, she continues to have all of her complex medical conditions, plus several more updates. She continues to have moderate amount of pain, occasionally worse, over her low back and sides, both hands MCP PIP wrists, her legs, but lately she doesn't seem to have limiting symptoms, she feels her pain is under decent control. Doesn't seem to be taking her Celebrex, stable and improved low back pain where she had the fracture. No recent falls. Had episodes of vertigo, resolved since. Had an episode of right sided facial paralysis? Lasted only several hours, by the time she went to ER, it's resolved. Imaging did not reveal any stroke or blockage? Continues to have stable dry eyes dry mouth, no major recent mouth sores and painful tongue as she did before. Continues taking Plaquenil daily, Salagen. Wondering about those meds, refills. Continues to be off Prolia, she prefers not to go back at all. Not taking any therapy for her osteoporosis. She is well aware of the risks. Reviewed her diet and food choices, trying to gain weight, she gained some lately. Stable GI symptoms, stable colitis. Seeing a new GI physician. Reviewed all of her labs, meds etc. 08/12/17: Pretty complex visit with a lot to review his usual, very large amount of comorbidities underlying issues, questions concerns all reviewed and addressed, extensive amount of encouragement counseling reassurance, etc. reviewing therapies management long-term prognosis etc. Continues to struggle a lot with her pain, hurting pretty much all over, some days a lot more limiting than other days, not as bad as when she had her initial fracture. Neck really bad with tightness stiffness, thoracic and lumbar spine, pain over both hands and thumbs, pain in both knees and feet. She feels pretty stiff all the time, specially in the morning and getting up from seated position She continues to have various skin lesions but no significant petechia as before. Struggling a lot with GI symptoms, having epigastric pain, discomfort, was told it's not from Crohn's disease, she's not sure she was thinking she could have it or microscopic colitis. She has been following closely with GI. She has been trying to eat well but reviewed her diet in great amount of depth, seem to be consuming large amount of sugar and carbs, quite excessive. Has been off Celebrex given GI symptoms. Wondering about trying some therapy for her arthritis, seem to be slightly more open to that. Continues Plaquenil Salagen otherwise. Continues to struggle with her vision, and her melanoma, following closely for that as well. 12/22/17: Prolonged complex visit as usual, to review numerous underlying conditions comorbidities problems, extensive amount of time to address all questions concerns, counseling, reassurance, etc. She seemed to be doing pretty decent despite her numerous active medical problems and issues. She seems quite thankful for adjusting her diet and food choices, intake, she seemed to be following as much as she could, having very hard time with certain foods and ingredients, reviewed in great amount of depth, long time spent addressing. Having hard time missing her morning donuts and desserts. Trying to find substitute for all the sweets she used to eat daily. She also had numerous questions about certain foods to avoid and to take given by her GI doctor. Reviewed her available documents. Stable GI symptoms otherwise, intermittent epigastric pain discomfort. Stable dry eyes dry mouth. 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 Have possible radiation damage. Tolerable over all pain, stable arthritis in both hands MCP PIP DIP with enlargement spurring deviations no worsening, no major flares in her joints, stable pain in her knees ankles feet no significant worsening, having hard time standing up from seated position at times, but no significant falls for a while. Intermittent worsening pain in her mid back and low back where she had the fractures. Continues to be on no therapy for her osteoporosis, her choice. Continues taking Plaquenil Salagen and numerous meds reviewed together. Gabapentin. Small erythematous scaly lesion right hands, following with dermatology. Continues to be off all NSAIDs and Celebrex. Taking Percocet for pain. Going through stress and problems, worried about her with worsening dementia and daughter with severe sarcoid. Going through counseling. 05/12/18: Prolonged visit with several different categories topics all covered and reviewed. Numerous questions concerns all addressed. Since last seen she continues to have persistent pain, not as severe as before, both hands deep aching, throbbing at times, over all PIP DIP wrists, no significant further deviation, stable enlargement spurring and changes from before, both thumbs, her index finger, stable and tolerable pain in her low back, not as bad as before either, continues to have heaviness and aching in both calves sometimes more than other times. Trying to remain active and walking around daily, unassisted. No recent falls, no recent fractures. Continues to have dry mouth, burning, sometimes more noticeable. Stable dry eyes Stable loss of vision left eye, stable melanoma. Continues taking Plaquenil, Salagen, all of her meds reviewed. Reviewed recent labs. Continues to be off Celebrex and NSAIDs. Stable GI symptoms Continues to prefer not to be on any therapy for her inflammatory arthritis She also doesn't want any therapy for her osteoporosis. She believes taking only calcium and vitamin D would suffice. 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[facility]) - Bleeding ulcer - Bowel trouble 04/2003 4 BM's in month - Bronchitis 2014 - Cataract left eye - Colitis lymphocytic - Crohn's disease ([facility]) - Dental caries - Depression - Diverticulosis - Dyslipidemia - Dysuria - Exanthematous disorder - Eye cancer ([facility]) - Fibromyalgia 1991 - Gastroesophageal reflux disease - Glossodynia - Hand joint pain - High cholesterol - History of pneumonia as a child - Hyperlipidemia - Increased frequency of urination - 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 scc called [facility] - Sjogren's disease ([facility]) [facility] - Sjogren's disease ([facility]) 2005 - Tear film insufficiency - Urinary tract infectious disease - Vitamin D deficiency - Vitamin D deficiency PAST SURGICAL HISTORY Procedure Laterality Date - APPENDECTOMY 1954 [facility] Collins - APPENDECTOMY - BACTERIAL AG DETECT CSF () 1937 - CHOLECYSTECTOMY 05/07/2005 Dr.Robert Nam - CLIN DEPRESSION SCREEN DOC - COLONOSCOPY 11/2010 polyps, inflammation - CT ABDOMEN - CYSTOSCOPY 01/19/2008 - DANDC DIAGNOSTIC OR THERA - IPAS - EKG 05/11/2015 SR with [facility] - ENDOSCOPY PROC 1977 [place] - EYE SURGERY PROCEDURE 12-07-2015 Pars plana vitrectomy, endolaser, air fluid exchange, left eye - HYSTERECTOMY HX 03/18/2002 Dr.Mark Shah - LAP REPAIR BLADDER INJURY 03/18/2002 - MRI BRAIN W AND W/O - PAST SURGICAL HISTORY OF 07/2014 squamous cell exc rt. 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 - PULMONARY FUNCTION TEST 01/04/2014 - RECTAL REPAIR W OR W/O MESH 03/18/2002 - REMOVAL ADENOIDS,PRIMARY,<12 Y/O Adenoidectomy - REMOVAL OF TONSILS,<12 Y/O Tonsillectomy - RETROGRADE PYELOGRAM 01/19/2008 bilateral - SPINAL FLUID TAP, DIAGNOSTIC [facility] - TONSILLECTOMY HX 04/03/42 [facility] - VAGINAL HYSTERECTOMY W/VAGINAL/BLADDER REP 2001 A/P repair - VITRECTOMY,MECHANICAL Left 12/07/2015 PPV (Pars Plana Vitrectomy) Health Maintenance Procedures INFLUENZA(1) due on 05/08/2018 Discussed health maintenance, including regular aerobic exercise, low fat diet, and periodic exams. Health Maintenance Immunizations Given Immunizations: Immunization History Administered Date(s) Administered Influenza Seasonal - High Dose - Age 65+ 05/25/2015 05/26/2015 06/06/2016 Pneumococcal-13 Vac Conjugate 05/25/2015 05/26/2015 TD Adult 06/24/2004 Tdap (Age 7+) 04/17/2017 Current Outpatient Prescriptions: hydroxychloroquine (PLAQUENIL) 200 mg tablet Take by mouth once daily. pilocarpine (SALAGEN, PILOCARPINE,) 5 mg tablet Take 1 tablet by mouth three times daily. oxyCODONE-acetaminophen (PERCOCET) 5-325 mg tablet Take 0.5 tablets by mouth twice daily as needed for up to 30 days.Earliest Fill Date: 04/26/18 gabapentin (NEURONTIN) 300 mg capsule Take 1 capsule by mouth twice daily. At 4 pm and 7 pm. pramipexole (MIRAPEX) 0.25 mg tablet Take 0.5 tablets by mouth four times daily. At 3:30, 6,8 and 10 pm. ergocalciferol, vitamin D2, (VITAMIN D) 50,000 unit capsule Takes 1 time monthly fluticasone (FLONASE) 50 mcg/actuation nasal spray Use 2 Sprays in each nostril once daily. Rinse mouth after use. venlafaxine ER (EFFEXOR XR) 75 mg 24 hr capsule Take 1 capsule by mouth once daily. clindamycin (CLEOCIN) 150 mg capsule Take 1 capsule by mouth once daily. 4 capsule(s) By mouth as directed atorvastatin (LIPITOR) 10 mg tablet Takes 5 mg every other day PEG 400-propylene glycol (SYSTANE) 0.4-0.3 % ophthalmic solution Use 1 Drop in both eyes as needed. melatonin 3 mg Take 1 tablet by mouth daily at bedtime. ondansetron orally disintegrating (ZOFRAN ODT) 4 mg disintegrating tablet Take 1 tablet by mouth every 12 hours as needed for Nausea/Vomiting. omeprazole (PRILOSEC) 20 mg capsule Take 1 capsule by mouth once daily. COMPOUNDED PRESCRIPTION Hospital bed Dx: M54.6, M19.90, M25.532, M47.816, F41.8, R53.1, Z91.81 aspirin, enteric coated (ASPIRIN, ENTERIC COATED) 81 mg EC tablet Take 81 mg by mouth once daily. Calcium Carbonate (CALCIUM ANTACID) 320 mg (750 mg) chew Take by mouth. Calcium Citrate-Vitamin D3 (CITRACAL+D) 315-250 mg-unit tab 4 tablet(s) By mouth Daily Flaxseed Oil oil Multivitamins-Iron tab Saliva Substitution Combo No.5 (NEUTRASAL) 538 mg pwpk Use as instructed. 1 packet(s) Oral Rinse 2-10 A Day prn VITAMIN B COMPLEX ORAL Take by mouth. docusate sodium (COLACE) 100 mg capsule Take 1 capsule by mouth twice daily as needed for Constipation. polyethylene glycol 3350 (MIRALAX) 17 gram/dose powder Takes as needed for constipation cycloSPORINE (RESTASIS) 0.05 % ophthalmic emulsion 1 Drop twice daily. clonazePAM (KLONOPIN) 0.5 mg tablet Take 0.5 tablets by mouth daily at bedtime for 90 days. BENEFIBER, WHEAT DEXTRIN, ORAL Take by mouth. camphor-menthol (SARNA ANTI-ITCH) lotion Apply 1 application to affected area as needed. No current facility-administered medications for this visit. ALLERGIES Allergen Reactions - Zoloft [Sertraline] Diarrhea hospitalized for week - Bactrim Ds [Sulfame* Mental Status Change, GI Upset - Celexa [Citalopram] Diarrhea - Codeine GI Upset - Contrast Dye Swelling 10/22/15-patient states she is allergic to CT contrast dye. - Cymbalta [Duloxetin* Diarrhea - Iodinated Contrast-* Other: See Comments IV Dye - Iodine And Iodide C* Unknown - Lamictal [Lamotrigi* [place] very drugged Pt. States the same thing happened in 2005 as well. - Med-Hist Unknown prednisolone opthalmic - Medrol [Methylpredn* Rash - Metoclopramide Unknown - Penicillins Unknown - Phenergan [Prometha* Involuntary body movements, mostly in feet and legs - Prednisolone Acetate Intolerance Itching and swelling - Promethazine Other: See Comments - Reglan [Metoclopram* Involuntary body movements in different parts of the body - Zoloft [Sertraline * Unknown FAMILY HISTORY Problem Relation Age of Onset - Diabetes Father - Heart Father - Stroke Father - Cataract Father - Cataract Mother - other (parkinson's) Mother - Diabetes Paternal Aunt - Diabetes Paternal Uncle - Breast Cancer Sister - other (sarcoidosis) Daughter - Asthma Other - Cancer Other - Hypertension Other - Osteoporosis Other - other (crohn's) Other - other (Alcoholism) Other - other (Diabetes mellitus) Other - other (Osteoarthritis) Other - other (Rheumatologic disorder) Other - other (Systemic lupus) Other Social History Marital status: Spouse name: Years of education: Number of children: 2 Occupational History Occupation Employer Comment retired Social History Main Topics Smoking status: Never Smoker Smokeless tobacco: Never Used Alcohol use: No Drug use: No Sexual activity: Yes Partners with: Male Other Topics Concern Caffeine Concern Yes Comment:4 per day Special Diet No Comment:Average diet Exercise No Comment:Sedentary Social History Narrative None Noted History review: I have reviewed and modified as needed, ALL the following during the visit: Review of system, physical exam, entire assessment and plan, allergies, past medical history, past surgical history, past family history, and past social history. All changes made if different from prior visits. Review of Systems Constitutional: Stable in general, recently lost some weight when she cut out sugar then back to eating more, No weight gain, No weight loss, Fatigue - continues to have, overall weakness, No fever, Patient denies recent falls, Increased risk of falling no recent falls in a while. Eyes (R,L): No eye pain, Eye redness, + reduced vision, ++ left eye diplopia, stable melanoma left eye, Blurred vision, Dryness, Feels like something in eye(s), No eye itching Ears (R,L): No tinnitus, No hearing loss Nose, Throat: No epistaxis, No loss of smell, No dryness in nose, No runny nose, Sore tongue, No bleeding gums, Sores in mouth, No loss of taste, Dryness of mouth, No frequent sore throats, No hoarseness, No dysphagia stable sx Cardiovascular: No chest pain, No arrhythmia, Palpitations - stable, No high blood pressure, No heart murmurs Respiratory: No shortness of breath, No nocturnal dyspnea, No swollen legs, No swollen feet, No cough, No dyspnea, No hemoptysis, No wheezing Gastrointestinal: Nausea - stable, No vomiting of blood or coffee ground material, Stomach pain relieved by food or milk, No jaundice, Constipation, Diarrhea, No blood in stool, No black stools, Heartburn Genitourinary, Female: No dysuria, No hematuria, No increased frequency of urination, No nocturia, No urinary incontinence, No kidney stone, No pelvic pain Menstrual History: No bleeding after menopause Hematologic, Lymphatic: No swollen glands, No lymph node tenderness, No anemia, Does not bleed easily Musculoskeletal: Morning stiffness, Stiffness lasting About 5-20 at a time (minutes), Joint pain, No muscle weakness, Muscle tenderness, No joint swelling, Joints affected in the last 6 months: very severe back pain since 2015, Back pain, numerous fractures - improved pain in general. Skin: Changes in the skin, Redness, Does not bruise easily, No pruritus, Skin rash, No hives, No sun sensitivity, No tightness, No nodules/bumps, No hair loss, Skin lesion, No ulcerations, Color changes of hands or feet in the cold +Squamous cell CA (resected 10/14) following closely Neurologic: Headache, No dizziness, No syncope, No muscle spasms, No tingling, No loss of consciousness, Sensitivity or pain of hands and/or feet, No memory loss, No night sweats Psychiatric: Excessive worries, Feeling anxious, Not easily losing temper, Feeling depressed, Not feeling agitated, Difficulty falling asleep, Difficulty staying asleep Endocrine: No polydipsia, Intolerant of cold, Not intolerant of heat Allergic, Immunologic: No frequent sneezing, No susceptibility to infections Other Objective Vital Signs BP 118/56 (BP Site: Right Arm, BP Position: Sitting) Pulse 99 Temp 36.9 ?C (98.4 ?F) Ht 149.9 cm (4' 11) Wt 47.6 kg (105 lb) BMI 21.21 kg/m? Physical Exam Constitutional: Appears very comfortable, much improved from February 2016 when she had the acute fracture Appearance consistent with age Mental Status: Alert, Oriented, Cooperative, Affect normal Eyes (R,L): No conjunctival injection, Eyelid normal, Sclera normal, No ciliary flush, Pupil size and shape normal, Fundoscopy normal Nose, Throat: External nose normal, No nasal ulcer, No oral ulcer, Throat examination normal no visible sores Neck: Neck symmetrical, Trachea midline, No neck mass, No thyromegaly Vascular: Peripheral pulses normal, Temporal pulse present, No temporal artery tenderness, Carotid pulse normal, No carotid bruit, No varicose veins, No upper extremity edema, No leg edema, No pedal edema Gastrointestinal: Abdomen soft, No hepatomegaly, No splenomegaly, No abdominal tenderness, No abdominal mass Lymphatic: No cervical lymphadenopathy Musculoskeletal: No joint tenderness present, Joint swelling present, No decreased ROM in joints present, Muscle strength normal, Spinal tenderness present, No SI joint tenderness present, Tender points present Stable persistent Moderate OA changes in both hands, noticeable squaring of both CMC joints, no findings consistent with RA changes, no current swelling over MCP PIP joints, no rheumatoid nodules, no swelling or reduction range of motion in both wrists. Unremarkable exam over both knees ankles and toes. Pretty abnormal exam February 2016 with excruciating pain over the midline spine, unable to even move to complete the exam at that time Greatly improved in general compared to before. minimal midline tenderness but patient is a lot more comfortable w/ her back. Skin: No alopecia, No skin rash, No skin lesion, No skin ulcer, No Pits, No Thickening, No Color changes, No telangiectasias, No Nail ridging, No Nail pitting, No Onycholysis Has not had any rashes in a while, improved BLE purpura petechia Neurologic: Motor and sensory exam WNL, No tremor, Cranial nerves II to XII intact, Biceps reflex normal, Triceps reflex normal, Knee reflex normal, Ankle reflex normal, Negative Phalens test, Negative Tinels sign of wrist Lab Results: Glucose 70 02/11/2016 ALT 18 12/07/2015 WBC 7.52 12/07/2015 Hemoglobin 12.4 12/07/2015 Platelet Count 174 12/07/2015 WSR 2 08/23/2013 CRP <0.29 08/23/2013 Component Latest Ref Rng AND Units 02/06/2017 WBC 3.70 - 11.00 k/uL 8.45 RBC 3.90 - 5.20 m/uL 5.07 Hemoglobin 11.5 - 15.5 g/dL 14.2 Hematocrit 36.0 - 46.0 % 46.5 (H) MCV 80.0 - 100.0 fL 91.7 MCH 26.0 - 34.0 pG 28.0 MCHC 30.5 - 36.0 g/dL 30.5 RDW-CV 11.5 - 15.0 % 14.0 Platelet Count 150 - 400 k/uL 276 MPV 9.0 - 12.7 fL 11.1 Neut% % 65.7 Abs Neut (ANC) 1.45 - 7.50 k/uL 5.55 Lymph% % 22.8 Abs Lymph 1.00 - 4.00 k/uL 1.93 Kimball% % 8.5 Abs Kimball 0.00 - 0.86 k/uL 0.72 Eosin% % 2.6 Abs Eosin 0.00 - 0.45 k/uL 0.22 Baso% % 0.4 Abs Baso 0.00 - 0.10 k/uL 0.03 Nucleated Reds 0 /100 WBC 0.0 NRBC 0 /100 WBC 0 Absolute nRBC k/uL 0.00 Diff Type Auto Diff Protein, Total 6.3 - 8.0 g/dL 7.0 Albumin 3.9 - 4.9 g/dL 4.1 Calcium 8.5 - 10.2 mg/dL 9.6 Bilirubin, Total 0.2 - 1.3 mg/dL 0.3 Alkaline Phosphatase 32 - 117 U/L 80 AST 13 - 35 U/L 36 (H) Glucose 74 - 99 mg/dL 73 (L) BUN 7 - 21 mg/dL 11 Creatinine 0.58 - 0.96 mg/dL 0.68 Sodium 136 - 144 mmol/L 143 Potassium 3.7 - 5.1 mmol/L 4.1 Chloride 97 - 105 mmol/L 101 CO2 22 - 30 mmol/L 28 Anion Gap 9 - 18 mmol/L 14 ALT 7 - 38 U/L 20 eGFR- >60 eGFR-All Other Races . >60 Iron 41 - 186 ug/dL TIBC 232 - 386 ug/dL Transferrin Saturation 15 - 57 % Ferritin 14.7 - 205.1 ng/mL TSH 0.400 - 5.500 uU/mL 2.340 Free T4 0.9 - 1.7 ng/dL 1.0 Component Latest Ref Rng AND Units 11/17/2017 WBC 3.70 - 11.00 k/uL 7.61 RBC 3.90 - 5.20 m/uL 4.86 Hemoglobin 11.5 - 15.5 g/dL 13.5 Hematocrit 36.0 - 46.0 % 42.8 MCV 80.0 - 100.0 fL 88.1 MCH 26.0 - 34.0 pG 27.8 MCHC 30.5 - 36.0 g/dL 31.5 RDW-CV 11.5 - 15.0 % 13.8 Platelet Count 150 - 400 k/uL 262 MPV 9.0 - 12.7 fL 11.6 Neut% % 70.3 Abs Neut (ANC) 1.45 - 7.50 k/uL 5.33 Lymph% % 19.7 Abs Lymph 1.00 - 4.00 k/uL 1.50 Kimball% % 8.4 Abs Kimball <0.87 k/uL 0.64 Eosin% % 1.2 Abs Eosin <0.46 k/uL 0.09 Baso% % 0.4 Abs Baso <0.11 k/uL 0.03 Nucleated Reds 0 /100 WBC 0.0 Absolute nRBC <0.01 k/uL <0.01 Diff Type Auto Diff Protein, Total 6.3 - 8.0 g/dL 7.4 Albumin 3.9 - 4.9 g/dL 4.5 Calcium 8.5 - 10.2 mg/dL 9.9 Bilirubin, Total 0.2 - 1.3 mg/dL 0.3 Alkaline Phosphatase 32 - 117 U/L 84 AST 13 - 35 U/L 35 Glucose 74 - 99 mg/dL 86 BUN 7 - 21 mg/dL 10 Creatinine 0.58 - 0.96 mg/dL 0.71 Sodium 136 - 144 mmol/L 138 Potassium 3.7 - 5.1 mmol/L 3.8 Chloride 97 - 105 mmol/L 96 (L) CO2 22 - 30 mmol/L 29 Anion Gap 9 - 18 mmol/L 13 ALT 7 - 38 U/L 20 eGFR- >60 eGFR-All Other Races . >60 Glucose, Urine Neg mg/dL Bilirubin, Urine Neg Ketones, Urine Neg Specific [place], Ur 1.005 - 1.030 Hemoglobin/Blood,Ur Neg pH, Urine 4.5 - 8.0 Protein, Urine Neg mg/dL Urobilinogen, Urine Normal (<1.1) EU Nitrites Neg Leukocytes Neg Color/Appearance comment: Quality Check yes/no Triglyceride <150 mg/dL 86 Cholesterol, Total <200 mg/dL 190 HDL Cholesterol >39 mg/dL 80 VLDL Cholesterol <30 mg/dL 17 LDL Cholesterol <100 mg/dL 93 Fasting Time hrs 11 TC:HDL Ratio <5.10 2.38 LDL:HDL Ratio <2.54 1.16 Non HDL Cholesterol <130 mg/dL 110 TSH 0.400 - 5.500 uU/mL Free T4 0.9 - 1.7 ng/dL Magnesium 1.7 - 2.3 mg/dL 1.9 Cortisol ug/dL Vitamin D 25 Hydroxy 31.0 - 80.0 ng/mL 52.2 Component Latest Ref Rng AND Units 11/17/2017 WBC 3.70 - 11.00 k/uL 7.61 RBC 3.90 - 5.20 m/uL 4.86 Hemoglobin 11.5 - 15.5 g/dL 13.5 Hematocrit 36.0 - 46.0 % 42.8 MCV 80.0 - 100.0 fL 88.1 MCH 26.0 - 34.0 pG 27.8 MCHC 30.5 - 36.0 g/dL 31.5 RDW-CV 11.5 - 15.0 % 13.8 Platelet Count 150 - 400 k/uL 262 MPV 9.0 - 12.7 fL 11.6 Neut% % 70.3 Abs Neut (ANC) 1.45 - 7.50 k/uL 5.33 Lymph% % 19.7 Abs Lymph 1.00 - 4.00 k/uL 1.50 Kimball% % 8.4 Abs Kimball <0.87 k/uL 0.64 Eosin% % 1.2 Abs Eosin <0.46 k/uL 0.09 Baso% % 0.4 Abs Baso <0.11 k/uL 0.03 Nucleated Reds 0 /100 WBC 0.0 Absolute nRBC <0.01 k/uL <0.01 Diff Type Auto Diff Protein, Total 6.3 - 8.0 g/dL 7.4 Albumin 3.9 - 4.9 g/dL 4.5 Calcium 8.5 - 10.2 mg/dL 9.9 Bilirubin, Total 0.2 - 1.3 mg/dL 0.3 Alkaline Phosphatase 32 - 117 U/L 84 AST 13 - 35 U/L 35 Glucose 74 - 99 mg/dL 86 BUN 7 - 21 mg/dL 10 Creatinine 0.58 - 0.96 mg/dL 0.71 Sodium 136 - 144 mmol/L 138 Potassium 3.7 - 5.1 mmol/L 3.8 Chloride 97 - 105 mmol/L 96 (L) CO2 22 - 30 mmol/L 29 Anion Gap 9 - 18 mmol/L 13 ALT 7 - 38 U/L 20 eGFR- >60 eGFR-All Other Races . >60 Cholesterol, Total <200 mg/dL 190 Triglyceride <150 mg/dL 86 HDL Cholesterol >39 mg/dL 80 LDL Cholesterol <100 mg/dL 93 Non HDL Cholesterol <130 mg/dL 110 Fasting Time hrs 11 VLDL Cholesterol <30 mg/dL 17 TC:HDL Ratio <5.10 2.38 LDL:HDL Ratio <2.54 1.16 Vitamin D 25 Hydroxy 31.0 - 80.0 ng/mL 52.2 Magnesium 1.7 - 2.3 mg/dL 1.9 Exam: Bone Mineral Densitometry (DEXA). Date: 04/07/2016 ? Comparison: 03/20/2014. ? Indication: ?Family History. ? Technique: ?DXA Ladies Who LaunchW-Profyle v.13.4 examination was performed on the lumbar spine and hip. ?Evaluation of the forearm was also performed. ? Findings: ? 1. L1-L4 BMD is 0.973 g/cm2 which is 82% of peak bone mass compared to young normals which is -1.7 standard deviations relative to the mean of young normals (T-score). ?According to the World Health Organization criteria, this would be classified as osteopenia. ?Statistically significant increase by 13.4% from prior study. ? 2. ?Left hip BMD is 0.608 g/cm2 which is 60% of peak bone mass compared to young normals which is -3.2 standard deviations relative to the mean of young normals (T-score). ?According to the World Health Organization criteria, this would be classified as osteoporosis. ?Statistically significant decrease by 6.6% from prior ?study. ? 3. ?Left femoral neck BMD is 0.557 g/cm2 which is 54% of peak bone mass compared to young normals which is -3.5 standard deviations relative to the mean of young normals (T-score). ?According to the World Health Organization criteria, this would be classified as osteoporosis. ? 4. ?Left forearm distal radius 33% BMD is 0.458 g/cm2 which is 65% of peak bone mass compared to young normals which is -3.5 standard deviations relative to the mean of young normals (T-score). ?According to the World Health Organization criteria, this would be classified as osteoporosis. ?No statistical change. ? ? IMPRESSION: Osteoporosis of the hip and forearm. Statistically significant interval decrease in bone density of the total hip by 6.6%. EXAM TITLE: ?XR CERVICAL 4V AP/LAT/OBL EXAM DATE/TIME: ?07/15/2017 11:52 AM COMPARISON: ?None. CLINICAL INDICATION/HISTORY: ?Pain TECHNIQUE: ?AP, lateral, and oblique views of the cervical spine are presented. FINDINGS: No fractures or subluxations are noted. Multilevel disc space narrowing is noted, involving C4-C7 levels. There is moderate osteophyte formation. The neural foramina are patent on the left side. ?Limited evaluation of the neural foramina on the right side, due to positioning. Bones appear osteopenic. L MRI 03/25/2016: Mild superior endplate compression deformities of L1, L2, L3, L4, and L5. There is trace residual marrow edema within L2, L3, L4, and L5, suggesting these fractures are late subacute/early chronic. Multilevel lumbar spondylosis as described. Mild to moderate central stenosis at L3-L4 and L4-L5. Moderate degenerative neural foraminal narrowing at the right L4-L5 level and at L5-S1 bilaterally. 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) (primary encounter diagnosis) (F51.02) Adjustment insomnia (S22.060D) Traumatic compression fracture of T8 thoracic vertebra with routine healing, subsequent encounter (M54.5, G89.29) Chronic bilateral low back pain without sciatica (M48.061) Spinal stenosis, lumbar region, without neurogenic claudication (M80.00XS) Osteoporosis with current pathological fracture, unspecified osteoporosis type, sequela (K14.6) Glossodynia (M25.549) Arthralgia of hand, unspecified laterality (M54.5, G89.29) Chronic low back pain without sciatica, unspecified back pain laterality (M35.09) Sjogren's syndrome with other organ involvement ([facility]) (I73.00) Raynaud's disease without gangrene (M81.0) Osteoporosis, unspecified osteoporosis type, unspecified pathological fracture presence Plan Office Visit on 05/12/18 -DXA-AXIAL SKELETON Patient Education: Patient Education was given today. Impression and Plan: Entire assessment and plan reviewed, noted, and read. Any interval changes, updates, were made appropriately where needed between visits. Michael is a very pleasant female with a complex past medical history including long-standing fibromyalgia, osteoarthritis, previous diagnoses of RA on no specific treatment, previous diagnoses of Sjogren's around 2005, severe long-standing dry eyes, severe long-standing dry mouth, severe dental caries, history of colitis, vitamin D deficiency, severe osteoporosis status post Forteo for 2 years in the past, intolerant to p.o. 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 I confirmed Michael's diagnosis for Sjogren's, severe long- standing dry eyes and dry mouth. Outside records and entire labs done June 2011, she has negative serologies with negative GORAN rheumatoid factor, GAURI panel, inflammatory markers etc. I do not believe that she has RA. She definitely has OA, pretty mild and not very symptomatic mostly over both hands She has a very large painful sore over her tongue, which is bothering her the most. Possibilities are for aphthous ulcer,? Doubt malignancy but needs to watch closely, consider comprehensive oral exam,... PATH neg for CA. She did have painful genital ulcers in the past, currently has some pain with urination over the right side, very unlikely for Behcet's (not the usual age her history at all!)... Very possible Crohn's disease, would explain her GI symptoms, would explain her mouth sores as well, also would explain her inflammatory symptoms over her axial and peripheral joints. Workup through GI seems to be unremarkable for IBD ? B cataract sx Summer 2011 ACUTE onset rash... on exam c/w palpable purpura ... most concerning possibilities for vasculitis,? Isolated skin vasculitis,? HSP (doubt since patient has no abdominal symptoms, joint symptoms, atypical age, etc.), ? Thrombocytopenia, ? Other etiologies.... rash improved. Previously worsening overall symptoms, most likely related to significant increase in stressors and worries Previous Left eye corneal laceration? Infection, given antibiotic and steroid eyedrops, not clear what's the diagnoses. Worrisome weight loss, epigastric symptoms, malaise,? Unusual constellation of symptoms with more GI symptoms diarrhea? Very very long counseling and discussion with patient regarding possibilities. Large range of differential. Apparently had so much work up no evidence for any malignancy,? Gastritis,? Other clear explanation to her symptoms.? Sensitivity to gluten/wheat,? Other referred pain from her thoracic spine causing epigastric symptoms,? Multiple gastric polyps noted on her EGD reports? Relation, etc. unifying diagnosis would be Crohn's disease with associated inflammatory arthritis/spondylitis. Would explain her GI symptoms and weight loss. Since previous imaging and endoscopies did not show any malignancies or other explanations. Again workup unremarkable per patient ..... All above reviewed and updated, noted: Severe alternating diarrhea/constipation, s/p ER visit w/impaction in the past Diffuse secondary OA Stable inlfammatory spondylitis - slightly better compared to before Was very reasonable to proceed with TNF inhibitors trial for at least 4 months and assess her symptoms. She is definitely not a candidate for DMARD or methotrexate. (Very frail, significant GI problems, significant mouth sores already, ... plus the lack of benefit) BUT COULD not take Humira more than 4 shots !!! and she prefers not to take again. Hold off any therapies per patient. Including osteoporosis treatment, her inflammatory tried his treatment. She gets side effects and unusual reactions. Pretty severe back pain, combination of factors, moving heavy objects around at home, cracking her back, going to chiropractor, et cetera. Most likely relating to NEW L1 compression fracture. Even that it's very mild compression based on the reports, but patient had more many chelation since x-ray were completed February 04, probably making her worse?? The amount of pain she is then, is quite concerning, for any further compromise to her cord or nurse. On top of the compression fracture. Patient was so much pain and discomfort at her visit in February 2016, was offered to go to ER and admission possibly for pain control and further evaluation, probably further imaging, she needs probably CT scan or MRI with definite pain control, orthopedic evaluation. Might not be a candidate for kyphoplasty, following with ortho. Patient counseled and reviewed her high risk for further fractures. She is well aware of her risk Reviewed her updated bone density, T score -3.5, automatically pretty severe osteoporosis with her numerous vertebral fractures anyway She wants to remain without medications for now. Encouraged patient to consider returning to Prolia - she does NOT want. Transient right-sided facial paralysis,? TIA/doubt Sawant's palsy... Watch with time Previously had noticeably worsened overall joint symptoms - most likely from such poor dietary intake. Very high intake of sugar - working hard on reducing. Lost significant weight when she cut out sugar Back to eating moderate amount Overall seem to be doing pretty well despite underlying conditions. Patient congratulated and encouraged to continue. Continues to be on no therapy for her osteoporosis - her choice Plan: Sjogren's, seronegative, reading given to patient Continue Plaquenil for sure, consider dropping back the dose given her small weight to 200 mg daily Continue Restasis eyedrops Switched Evoxac to Salagen given cost, helping BUT causing sig sweating/drooling. Consider taking half tablet of Salagen. 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 She eats regular diet (with some modification but not gluten-free ) Very possible Crohn's disease as detailed above. Plan to proceed with Humira every other week, long discussion and counseling with patient. Possible side effects and toxicities, the slight increase risk of malignancy and infection.. never completed. QuantiFERON negative She wants to continue holding off biologics. Consider low dose SC MTX - would help her diffuse enthesitis! Long discussion Comprehensive labs all returned unremarkable before Update labs as above. Short course prednisone trial .. helped her joint pain. PPI, Prilosec in the morning Celebrex for pain - has not been taking (?GI concerns) Osteoporosis - updated DXA '16 reviewed again with patient prolia she doesn't want to take anymore. She does not want to take anything. She refuses therapy REPEAT DXA 05/2018 I repeatedly Warned patient regarding going untreated. Very long discussion regarding osteoporosis, her T. scores, her risk for fracture, optimizing her risk, etc. safety of Prolia. At least strengthening exercises and weightbearing. Reminded to follow daily. Severe back pain 2015, as detailed above Small amount of Vicodin given at that time to patient until she sees orthopedic surgery Appointment arranged for her to be seen the following morning Movantic samples given to avoid severe constipation with Vicodin use Vit.D 50,000 once/month Patient reassured Diffuse OA stable - used to be symptomatic both hands Consider some splints Voltaren gel Quad strengthening encouraged, stationary bike Trochanteric bursitis fall '12 ... intermitent sx. Hold off injections given her osteoporosis, unless really needed Neurontin for pain successful 600mg/d .. In two doses Diet and food choices reviewed and counseled. Counseling for stress / anxiety Very long discussion and counseling with patient regarding her conditions and the appropriate management at this point. 6 months CNOV Observed: 05/12/2018 Status: COMPLETED Source: [facility] 11:00 AM [facility] OTHER [facility] REPOSITORY Office Visit (AGRHEUHWN) TRACYMICHAEL ([id number]) 1935 F Date Time Provider Department 05/12/18 11:00 AM HAIDER MONTES During your visit today, we recorded the following information about you: Temperature Pulse Blood pressure Weight 98.4 degrees 99/minute 118/56 47.6 kg Height 1.499 m Haider Montes MD 05/12/2018 12:11 PM Signed Subjective History of Present Illness: General HPI: Michael is a very pleasant 82 female with a complex past medical history including long-standing fibromyalgia, osteoarthritis, previous diagnoses of RA on no specific treatment, previous diagnoses of Sjogren's around 2005, severe long-standing dry eyes, severe long-standing dry mouth, severe dental caries, history of colitis/possible Crohn's disease, vitamin D deficiency, severe osteoporosis status post Forteo for 2 years in the past, intolerant to p.o. 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 Pretty severe back pain. 'INITIAL visit: Michael reports suffering from are extremely dry eyes and dry mouth for many years, was finally diagnosed with Sjogren's around 2005. Over the years she has been on different treatment off and on, her Plaquenil was given and stopped several times, recently restarted around early 2010, and the dose was recently increased from 200 mg to 300 mg daily. She also takes Restasis eyedrops for many years, she uses Salagen for dry mouth 3 times a day. She had a significant flare May 2011 with extreme painful mouth and tongue ulcerations, told she had a Sjogren's flare, given a course of prednisone which didn't seem to help much. She continues to have extremely painful sore on her tongue with deep cracks. Was checked for possible yeast, and given nystatin which she is still using without help. She is asking for help she's quite miserable. Her joints hurts at times, mostly over both hands MCP PIP and DIP joints, both thumb base, she was even told she had RA, she is not on any specific treatment for it. For her osteoporosis she is not currently on any protection, recently was on IV Boniva, stopped around 2009. Numerous outside records, all reviewed in details. Including various labs, DEXA scan, her notes, etc. 05/25/13: Has not been doing well at all. A lot of stress, her with his dementia, worsening it seems, her daughter getting sicker with sarcoidosis. She is over wound and can't cope well enough. Was given an antidepressant, didn't seem to help. She continues with joint pain, mostly over her hands and low back. Not as severe as last time. Continues colchicine and Plaquenil. Continue Celebrex 100 mg daily. Had recent labs, reviewed together in details. Noted slightly elevated ferritin otherwise unremarkable. Continues Neurontin 600 mg daily. 08/23/13: NOT feeling well at all, ++fatigue/generalized weakness,+malaise,poor appetite/nausea/upset stomach/lost 5more lbs/had transient bld inurine.... had numerous tests:CTscans/BrainMRI/EGD..al ok?(per pt).. she feels quite miserable. Joints are not too bad! hands/knees/feet are not as bad. ++pain in low back/sides/occasional in B wrists. No rashes. She even stopped her Celebrex thinking it could be causing her stomach pain, no difference off it. Reviewed all of her available records. 03/01/14: Has not been doing well at all. Continues to have weight loss, continues to have abdominal pain and diarrhea, no blood in the stool. Continues to have extreme amount of fatigue, exhaustion, generalized weakness. No cancer or explanation to all of her symptoms. She's very miserable. Also having some more joint pain, both hands knees feet and low back. Hurting so bad over her sides. Both thumbs and the bases. Wondering what else to do. 05/31/14: Has been miserable. So much stress, hurting so bad all over her spine and body, it even hurts to do simple tasks, even folding laundry. She has exhaustion and fatigue, continues to have GI problems, complete workup did not seem to explain her symptoms. Her GI Dr. could not tell her why she's having lack of appetite diarrhea and pain.? Biopsies, I do not have for my review. She wanted to try Humira, she took only for 2 or 3 injections and stopped it since she couldn't tell if she was worse or what. She's now thinking she would like to try it again. She developed an unusual eruption on her right cheek last week, for no apparent reason, when she woke up, was not itchy or painful or burning (??) And it's resolved after about 2-3 days on its own, had less rash on her left cheek. She also was started on amitriptyline, just few days prior to the rash. It's the only thing that she did different. Has been off colchicine and she's wondering if it's making her worse to be off. Numerous questions and concerns all addressed. 08/09/14: Complex case, situation. Extensive amount of time needed to complete visit. Numerous issues concerns, symptoms problems, data, notes, etc. 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 Has not been doing well. Continues to be miserable with various symptoms. Continues to have dry eyes dry mouth and intermittent mouth sores not as severe as the previous years. Continues to have extreme fatigue some days worse than others. Continues to have pain all over her spine, also some days worse than others. Recently had a flare with extreme pain over her entire chest and neck, epigastric area? She did not seek any help or tension. This has slightly improved since. Continues to have pain in both hands, her legs. Low back and sides. She has been off colchicine. Wondering if she should return but reminded her about the diarrhea. She continues to have that intermittently. Continues to go through a tremendous amount of stress and pressure, caring for her with worsening behavior, Alzheimer's. Tried using Humira, only 4 shots, she thinks it made her worse, hurting more? And having bizarre symptoms. She got an alert from her insurance about its use? She had large notes taken which we reviewed together. She gave me a copy. 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 She is concerned about that as well. She is also very worried about Prolia. She missed her dose from last week. She believes Prolia is dangerous. It can cause pancreatic insufficiency as she read. Then she had pancreas insufficiency?? .. She's wondering about her bone density not improving, we reviewed her density together in great details. Noted the improvement of 4% in her spine and stable and her hip. Continues to have very low T. scores. 3.2. Explained her scores. Numerous other issues and concerns all reviewed together and addressed. 01/10/15: Since last seen she continues going through incredible amount of stressors, mostly caring for her with advancing worsening dementia. He's having hard time with his cognition and completing simple tasks. She continues to have stable pain everywhere, her entire spine, hands and feet. Seem to be not as bad as before, seem to be more tolerable in general. She continues to have significant dry mouth and frequent mouth sores, also not as bad as before, taking Salagen but it seems to be causing excessive sweating, and drooling. She denies any rashes, she continues to have diarrhea. Alternating with constipation. Recent ER visit for impaction. Has not been taking Celebrex. Has been taking Neurontin 400 mg nightly. She continues not to be on anything for her inflammatory arthritis, continues not to be on anything for her osteoporosis. Numerous issues concerns questions all addressed. 08/22/15: Prolonged visit. Numerous issues concerns and problems to review. She continues to struggle a lot with her health in general and her stressors. Continues to care for her with pretty advanced dementia, in and out from hospitals and nursing homes, most recently in a locked down facility. Each time she visits him she feels pretty bad when leaving. Continues to have significant dryness in her mouth, not as severe as when she first came, no significant mouth sores, wondering about Salagen, it makes her have a cold sweat and drooling, than the dryness return later. Continues with pain not as severe as before it seems, her hands CMC joints her entire spine and back, tolerable symptoms otherwise her knees ankles and feet. She stopped Celebrex a while ago. Continues Neurontin 400 mg. She doesn't want to take any more Prolia, makes her feel sick for a while after the injection. Doesn't seem to be working out but she remains very active and walking all the time. Recent labs reviewed together. 02/20/16: Very complex long visit. Numerous problems and issues, concerns, major updates, large amount of various topics to review and address. Has not been seen in a while. Since last seen she's been struggling a lot with her life in general. But was doing pretty decent with her pain and difficulties, until few days before , she was cleaning up few objects at home, moving things around, she started having some back pain, her helped her cracking upher back, she stopped since her pain got worse, was seen by 2 different physicians so far, over the past 2 weeks, x-rays were completed on February 04, she was told nothing showing on the x-ray, to go see chiropractor. So she had chiropractor visit which caused her an incredible amount of worsening pain. She also follow back with her PCP, February 10. She was given tizanidine. She's been taking that, she's feeling incredibly bad, terrible amount of pain, beyond miserable and unable to move at all, sits or stands or lay down. She had terrible time getting in the car to drive. She feels the pain over the entire midline spine, specially around her lower thoracic and upper lumbar. She has no significant tingling numbness weakness in her legs but she's weak overall from the pain. 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 Reviewed her x-ray from February 04, surprisingly showing L1 compression fracture, which was not present in her previous lumbar spine x-rays, previous to that was in August 2013. 05/01/2016: Prolonged visit today. Long time spent reviewing updates, her numerous imaging she completed since last seen, her frustration with her significant symptoms and pain, and apparently a major misunderstanding with our office staff..... She apparently was told when she called first week March 2016, very soon after her above appointment with me in February, she asked to be seen for severe back pain, that same day she called, might answer was at that time pretty compassionate and logical, to proceed with pain control, through pain management ideally given her significant fractures causing her pain, and to see orthopedic surgery for possible kyphoplasty or other interventions.. She apparently was told I refusedto see her!!! Which was the furthest from truth. I would not say I refused to see any of my patients, but always give up plan or reason, and if needed, always offer an appointment as soon as possible. Plus in her case, I would not have been able to help her at all, given her pain being from fractures, needing narcotics or other intervention. Keeping in mind, that I just saw her 2-1/2 weeks prior. Patient was terribly disappointed and upset with the staff telling her I refused to see her the same day and repeatedly we reviewed that during her visit today. She continues to have pretty severe pain, but she seemed a lot more comfortable sitting on the chair today compared to last time. She has not been able to wear any back brace. She had numerous imaging, reviewed them together. Noted multiple compression fractures, not only in L1, but seems to be pretty much all over her entire lumbar spine, L1-L2 L3-L4 all with compression fractures. She continues to be completely against going back on osteoporosis therapy, she does not want to use Prolia again. She believes it caused her significant flulike symptoms and infections. Reviewed all of her meds. 02/25/17: NOT seen in almost one year. Large topics reviewed during her visit with numerous updates, various medical conditions, discussions, counseling etc. etc. Since last seen, she continues to have all of her complex medical conditions, plus several more updates. She continues to have moderate amount of pain, occasionally worse, over her low back and sides, both hands MCP PIP wrists, her legs, but lately she doesn't seem to have limiting symptoms, she feels her pain is under decent control. Doesn't seem to be taking her Celebrex, stable and improved low back pain where she had the fracture. No recent falls. Had episodes of vertigo, resolved since. Had an episode of right sided facial paralysis? Lasted only several hours, by the time she went to ER, it's resolved. Imaging did not reveal any stroke or blockage? Continues to have stable dry eyes dry mouth, no major recent mouth sores and painful tongue as she did before. Continues taking Plaquenil daily, Salagen. Wondering about those meds, refills. Continues to be off Prolia, she prefers not to go back at all. Not taking any therapy for her osteoporosis. She is well aware of the risks. Reviewed her diet and food choices, trying to gain weight, she gained some lately. Stable GI symptoms, stable colitis. Seeing a new GI physician. Reviewed all of her labs, meds etc. 08/12/17: Pretty complex visit with a lot to review his usual, very large amount of comorbidities underlying issues, questions concerns all reviewed and addressed, extensive amount of encouragement counseling reassurance, etc. reviewing therapies management long-term prognosis etc. Continues to struggle a lot with her pain, hurting pretty much all over, some days a lot more limiting than other days, not as bad as when she had her initial fracture. Neck really bad with tightness stiffness, thoracic and lumbar spine, pain over both hands and thumbs, pain in both knees and feet. She feels pretty stiff all the time, specially in the morning and getting up from seated position She continues to have various skin lesions but no significant petechia as before. Struggling a lot with GI symptoms, having epigastric pain, discomfort, was told it's not from Crohn's disease, she's not sure she was thinking she could have it or microscopic colitis. She has been following closely with GI. She has been trying to eat well but reviewed her diet in great amount of depth, seem to be consuming large amount of sugar and carbs, quite excessive. Has been off Celebrex given GI symptoms. Wondering about trying some therapy for her arthritis, seem to be slightly more open to that. Continues Plaquenil Salagen otherwise. Continues to struggle with her vision, and her melanoma, following closely for that as well. 12/22/17: Prolonged complex visit as usual, to review numerous underlying conditions comorbidities problems, extensive amount of time to address all questions concerns, counseling, reassurance, etc. She seemed to be doing pretty decent despite her numerous active medical problems and issues. She seems quite thankful for adjusting her diet and food choices, intake, she seemed to be following as much as she could, having very hard time with certain foods and ingredients, reviewed in great amount of depth, long time spent addressing. Having hard time missing her morning donuts and desserts. Trying to find substitute for all the sweets she used to eat daily. She also had numerous questions about certain foods to avoid and to take given by her GI doctor. Reviewed her available documents. Stable GI symptoms otherwise, intermittent epigastric pain discomfort. Stable dry eyes dry mouth. 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 Have possible radiation damage. Tolerable over all pain, stable arthritis in both hands MCP PIP DIP with enlargement spurring deviations no worsening, no major flares in her joints, stable pain in her knees ankles feet no significant worsening, having hard time standing up from seated position at times, but no significant falls for a while. Intermittent worsening pain in her mid back and low back where she had the fractures. Continues to be on no therapy for her osteoporosis, her choice. Continues taking Plaquenil Salagen and numerous meds reviewed together. Gabapentin. Small erythematous scaly lesion right hands, following with dermatology. Continues to be off all NSAIDs and Celebrex. Taking Percocet for pain. Going through stress and problems, worried about her with worsening dementia and daughter with severe sarcoid. Going through counseling. 05/12/18: Prolonged visit with several different categories topics all covered and reviewed. Numerous questions concerns all addressed. Since last seen she continues to have persistent pain, not as severe as before, both hands deep aching, throbbing at times, over all PIP DIP wrists, no significant further deviation, stable enlargement spurring and changes from before, both thumbs, her index finger, stable and tolerable pain in her low back, not as bad as before either, continues to have heaviness and aching in both calves sometimes more than other times. Trying to remain active and walking around daily, unassisted. No recent falls, no recent fractures. Continues to have dry mouth, burning, sometimes more noticeable. Stable dry eyes Stable loss of vision left eye, stable melanoma. Continues taking Plaquenil, Salagen, all of her meds reviewed. Reviewed recent labs. Continues to be off Celebrex and NSAIDs. Stable GI symptoms Continues to prefer not to be on any therapy for her inflammatory arthritis She also doesn't want any therapy for her osteoporosis. She believes taking only calcium and vitamin D would suffice. 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) - Bleeding ulcer - Bowel trouble 04/2003 4 BM's in month - Bronchitis 2014 - Cataract left eye - Colitis lymphocytic - Crohn's disease (HCC) - Dental caries - Depression - Diverticulosis - Dyslipidemia - Dysuria - Exanthematous disorder - Eye cancer (HCC) - Fibromyalgia 1991 - Gastroesophageal reflux disease - Glossodynia - Hand joint pain - High cholesterol - History of pneumonia as a child - Hyperlipidemia - Increased frequency of urination - 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 scc called [facility] - Sjogren's disease ([facility]) [facility] - Sjogren's disease ([facility]) 2005 - Tear film insufficiency - Urinary tract infectious disease - Vitamin D deficiency - Vitamin D deficiency PAST SURGICAL HISTORY Procedure Laterality Date - APPENDECTOMY 1954 [place], [place] - APPENDECTOMY - BACTERIAL AG DETECT CSF () 1936 - CHOLECYSTECTOMY 05/07/2005 Dr.Robert Nam - CLIN DEPRESSION SCREEN DOC - COLONOSCOPY 11/2010 polyps, inflammation - CT ABDOMEN - CYSTOSCOPY 01/19/2008 - DANLA DIAGNOSTIC OR THERA - IPAS - EKG 05/11/2015 SR with LAMABEL Chopra - ENDOSCOPY PROC 1977 [place] - EYE SURGERY PROCEDURE 12-07-2015 Pars plana vitrectomy, endolaser, air fluid exchange, left eye - HYSTERECTOMY HX 03/18/2002 Dr.Mark Shah - LAP REPAIR BLADDER INJURY 03/18/2002 - MRI BRAIN W AND W/O - PAST SURGICAL HISTORY OF 07/2014 squamous cell exc rt. 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 - PULMONARY FUNCTION TEST 01/04/2014 - RECTAL REPAIR W OR W/O MESH 03/18/2002 - REMOVAL ADENOIDS,PRIMARY,<12 Y/O Adenoidectomy - REMOVAL OF TONSILS,<12 Y/O Tonsillectomy - RETROGRADE PYELOGRAM 01/19/2008 bilateral - SPINAL FLUID TAP, DIAGNOSTIC [facility] - TONSILLECTOMY HX 04/03/42 [facility] - VAGINAL HYSTERECTOMY W/VAGINAL/BLADDER REP 2001 A/P repair - VITRECTOMY,MECHANICAL Left 12/07/2015 PPV (Pars Plana Vitrectomy) Health Maintenance Procedures INFLUENZA(1) due on 05/08/2018 Discussed health maintenance, including regular aerobic exercise, low fat diet, and periodic exams. Health Maintenance Immunizations Given Immunizations: Immunization History Administered Date(s) Administered Influenza Seasonal - High Dose - Age 65+ 05/25/2015 05/26/2015 06/06/2016 Pneumococcal-13 Vac Conjugate 05/25/2015 05/26/2015 TD Adult 06/24/2004 Tdap (Age 7+) 04/17/2017 Current Outpatient Prescriptions: hydroxychloroquine (PLAQUENIL) 200 mg tablet Take by mouth once daily. pilocarpine (SALAGEN, PILOCARPINE,) 5 mg tablet Take 1 tablet by mouth three times daily. oxyCODONE-acetaminophen (PERCOCET) 5-325 mg tablet Take 0.5 tablets by mouth twice daily as needed for up to 30 days.Earliest Fill Date: 04/26/18 gabapentin (NEURONTIN) 300 mg capsule Take 1 capsule by mouth twice daily. At 4 pm and 7 pm. pramipexole (MIRAPEX) 0.25 mg tablet Take 0.5 tablets by mouth four times daily. At 3:30, 6,8 and 10 pm. ergocalciferol, vitamin D2, (VITAMIN D) 50,000 unit capsule Takes 1 time monthly fluticasone (FLONASE) 50 mcg/actuation nasal spray Use 2 Sprays in each nostril once daily. Rinse mouth after use. venlafaxine ER (EFFEXOR XR) 75 mg 24 hr capsule Take 1 capsule by mouth once daily. clindamycin (CLEOCIN) 150 mg capsule Take 1 capsule by mouth once daily. 4 capsule(s) By mouth as directed atorvastatin (LIPITOR) 10 mg tablet Takes 5 mg every other day PEG 400-propylene glycol (SYSTANE) 0.4-0.3 % ophthalmic solution Use 1 Drop in both eyes as needed. melatonin 3 mg Take 1 tablet by mouth daily at bedtime. ondansetron orally disintegrating (ZOFRAN ODT) 4 mg disintegrating tablet Take 1 tablet by mouth every 12 hours as needed for Nausea/Vomiting. omeprazole (PRILOSEC) 20 mg capsule Take 1 capsule by mouth once daily. COMPOUNDED PRESCRIPTION Hospital bed Dx: M54.6, M19.90, M25.532, M47.816, F41.8, R53.1, Z91.81 aspirin, enteric coated (ASPIRIN, ENTERIC COATED) 81 mg EC tablet Take 81 mg by mouth once daily. Calcium Carbonate (CALCIUM ANTACID) 320 mg (750 mg) chew Take by mouth. Calcium Citrate-Vitamin D3 (CITRACAL+D) 315-250 mg-unit tab 4 tablet(s) By mouth Daily Flaxseed Oil oil Multivitamins-Iron tab Saliva Substitution Combo No.5 (NEUTRASAL) 538 mg pwpk Use as instructed. 1 packet(s) Oral Rinse 2-10 A Day prn VITAMIN B COMPLEX ORAL Take by mouth. docusate sodium (COLACE) 100 mg capsule Take 1 capsule by mouth twice daily as needed for Constipation. polyethylene glycol 3350 (MIRALAX) 17 gram/dose powder Takes as needed for constipation cycloSPORINE (RESTASIS) 0.05 % ophthalmic emulsion 1 Drop twice daily. clonazePAM (KLONOPIN) 0.5 mg tablet Take 0.5 tablets by mouth daily at bedtime for 90 days. BENEFIBER, WHEAT DEXTRIN, ORAL Take by mouth. camphor-menthol (SARNA ANTI-ITCH) lotion Apply 1 application to affected area as needed. No current facility-administered medications for this visit. ALLERGIES Allergen Reactions - Zoloft [Sertraline] Diarrhea hospitalized for week - Bactrim Ds [Sulfame* Mental Status Change, GI Upset - Celexa [Citalopram] Diarrhea - Codeine GI Upset - Contrast Dye Swelling 10/22/15-patient states she is allergic to CT contrast dye. - Cymbalta [Duloxetin* Diarrhea - Iodinated Contrast-* Other: See Comments IV Dye - Iodine And Iodide C* Unknown - Lamictal [Lamotrigi* [place] very drugged Pt. States the same thing happened in 2006 as well. - Med-Hist Unknown prednisolone opthalmic - Medrol [Methylpredn* Rash - Metoclopramide Unknown - Penicillins Unknown - Phenergan [Prometha* Involuntary body movements, mostly in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 1 tablet by mouth daily * ERGOCALCIFEROL (VITAMIN D2) 5* Takes 1 time monthly ONDANSETRON 4 MG DISINTEGRATI* Take 1 tablet by mouth every * BENEFIBER (WHEAT DEXTRIN) ORAL Take by mouth. OMEPRAZOLE 20 MG CAPSULE,TANNA* Take 1 capsule by mouth once * COMPOUNDED PRESCRIPTION Hospital bed Dx: M54.6, M19.9* ASPIRIN 81 MG TABLET,DELAYED * Take 81 mg by mouth once judy* CALCIUM CARBONATE 320 MG CALC* Take by mouth. CALCIUM CITRATE-VITAMIN D3 31* 4 tablet(s) By mouth Daily FLAXSEED OIL MULTIVITAMIN WITH IRON TABLET SALIVA SUBSTITUTE COMBO NO.5 * Use as instructed. 1 packet(* VITAMIN B COMPLEX ORAL Take by mouth. DOCUSATE SODIUM 100 MG CAPSULE Take 1 capsule by mouth twice* POLYETHYLENE GLYCOL 3350 17 G* Takes as needed for constipat* CYCLOSPORINE 0.05 % EYE DROPS* 1 Drop twice daily. CAMPHOR-MENTHOL 0.5 %-0.5 % L* Apply 1 application to affect* Progress Notes: Emelyn Luna, PT 12/25/2017 11:05 AM Signed Episode Visit Count: 3 Therapist That Will Oversee The Plan Of Care: Emelyn Luna Start of Care Date: 12/09/17 Onset Date: 03/07/17 Plan of Care Certification Date: 09/14/17 Patient Identified by Name and Date of : Yes REHABILITATION AND SPORTS THERAPY PHYSICAL THERAPY TREATMENT NOTE ASSESSMENT: Michael Molina demonstrated improvements in activity tolerance, advancement of strengthening exercises. The patient will continue to benefit from continued skilled physical therapy for continued strengthening of B hips and LE. PLAN FOR NEXT VISIT: Assess response to progression of activity and additions to HEP. Continue with strengthening exercises for hips and B LE. 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 She states she feels a little achy all over today rating pain 2/10. Pain Score: 2/10 Pain Location: (all over) OBJECTIVE MEASURES WITH LEVEL OF FUNCTION: Pt used B hand holds on parallel bars for balance during standing exercises and step ups. TREATMENT: Therapeutic Exercise: 1: recumbant stationary bike seat 9 with a pillow behind her back, pedals 3 x 5 minutes 2: quad sets with small towel under knees, 5 sec holds 2 x 10 reps. 3: *SLR (with shoes on) 1 x 5 reps each leg 4: standing B heel raises 2 x 10 reps 5: standing hamstring curls (knee flexions) 1 x 10 reps each leg 6: standing hip extensions 1 x 10 reps each leg 7: standing hip abductions 1 x 10 reps each leg 8: *bridging 1 x 10 reps 9: seated knee extensions (LAQ) 1 x 10 reps each leg 10: black step, step-ups 1 x 10 reps with each leg (same leg leading up and down) Skilled Intervention: Patient was educated in proper exercise technique and purpose for exercises. Reviewed and educated patient on additions/changes for home exercise program and pt is to add (*) exercises to HEP as noted above. Skilled judgment was provided in selection of appropriate interventions. Provided written instruction for home exercise program to facilitate proper performance and compliance. Correct performance of therapeutic exercises was facilitated with verbal and visual cuing. Patient education as noted. Billing: [facility]: Therapeutic Exercise ([id number]): 1:1 time: 42 minutes (3 units: 38-52 mins) Total time: 42 minutes Emelyn Luna PT PROGRESS Observed: 12/22/2017 Status: COMPLETED Source: [place] 9:17 AM [facility] RE[facility] HNO ID: [id number] Author: Haider Montes Service: (none) Author Type: Physician Type: Progress Notes Filed: 12/22/2017 10:14 AM Note Text: Subjective History of Present Illness: General HPI: Michael is a very pleasant 82 female with a complex past medical history including long-standing fibromyalgia, osteoarthritis, previous diagnoses of RA on no specific treatment, previous diagnoses of Sjogren's around 2005, severe long-standing dry eyes, severe long-standing dry mouth, severe dental caries, history of colitis/possible Crohn's disease, vitamin D deficiency, severe osteoporosis status post Forteo for 2 years in the past, intolerant to p.o. 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 Pretty severe back pain. 'INITIAL visit: Michael reports suffering from are extremely dry eyes and dry mouth for many years, was finally diagnosed with Sjogren's around 2005. Over the years she has been on different treatment off and on, her Plaquenil was given and stopped several times, recently restarted around early 2010, and the dose was recently increased from 200 mg to 300 mg daily. She also takes Restasis eyedrops for many years, she uses Salagen for dry mouth 3 times a day. She had a significant flare May 2011 with extreme painful mouth and tongue ulcerations, told she had a Sjogren's flare, given a course of prednisone which didn't seem to help much. She continues to have extremely painful sore on her tongue with deep cracks. Was checked for possible yeast, and given nystatin which she is still using without help. She is asking for help she's quite miserable. Her joints hurts at times, mostly over both hands MCP PIP and DIP joints, both thumb base, she was even told she had RA, she is not on any specific treatment for it. For her osteoporosis she is not currently on any protection, recently was on IV Boniva, stopped around 2009. Numerous outside records, all reviewed in details. Including various labs, DEXA scan, her notes, etc. 05/25/13: Has not been doing well at all. A lot of stress, her with his dementia, worsening it seems, her daughter getting sicker with sarcoidosis. She is over wound and can't cope well enough. Was given an antidepressant, didn't seem to help. She continues with joint pain, mostly over her hands and low back. Not as severe as last time. Continues colchicine and Plaquenil. Continue Celebrex 100 mg daily. Had recent labs, reviewed together in details. Noted slightly elevated ferritin otherwise unremarkable. Continues Neurontin 600 mg daily. 08/23/13: NOT feeling well at all, ++fatigue/generalized weakness,+malaise,poor appetite/nausea/upset stomach/lost 5more lbs/had transient bld inurine.... had numerous tests:CTscans/BrainMRI/EGD..al ok?(per pt).. she feels quite miserable. Joints are not too bad! hands/knees/feet are not as bad. ++pain in low back/sides/occasional in B wrists. No rashes. She even stopped her Celebrex thinking it could be causing her stomach pain, no difference off it. Reviewed all of her available records. 03/01/14: Has not been doing well at all. Continues to have weight loss, continues to have abdominal pain and diarrhea, no blood in the stool. Continues to have extreme amount of fatigue, exhaustion, generalized weakness. No cancer or explanation to all of her symptoms. She's very miserable. Also having some more joint pain, both hands knees feet and low back. Hurting so bad over her sides. Both thumbs and the bases. Wondering what else to do. 05/31/14: Has been miserable. So much stress, hurting so bad all over her spine and body, it even hurts to do simple tasks, even folding laundry. She has exhaustion and fatigue, continues to have GI problems, complete workup did not seem to explain her symptoms. Her GI Dr. could not tell her why she's having lack of appetite diarrhea and pain.? Biopsies, I do not have for my review. She wanted to try Humira, she took only for 2 or 3 injections and stopped it since she couldn't tell if she was worse or what. She's now thinking she would like to try it again. She developed an unusual eruption on her right cheek last week, for no apparent reason, when she woke up, was not itchy or painful or burning (??) And it's resolved after about 2-3 days on its own, had less rash on her left cheek. She also was started on amitriptyline, just few days prior to the rash. It's the only thing that she did different. Has been off colchicine and she's wondering if it's making her worse to be off. Numerous questions and concerns all addressed. 08/09/14: Complex case, situation. Extensive amount of time needed to complete visit. Numerous issues concerns, symptoms problems, data, notes, etc. 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 Has not been doing well. Continues to be miserable with various symptoms. Continues to have dry eyes dry mouth and intermittent mouth sores not as severe as the previous years. Continues to have extreme fatigue some days worse than others. Continues to have pain all over her spine, also some days worse than others. Recently had a flare with extreme pain over her entire chest and neck, epigastric area? She did not seek any help or tension. This has slightly improved since. Continues to have pain in both hands, her legs. Low back and sides. She has been off colchicine. Wondering if she should return but reminded her about the diarrhea. She continues to have that intermittently. Continues to go through a tremendous amount of stress and pressure, caring for her with worsening behavior, Alzheimer's. Tried using Humira, only 4 shots, she thinks it made her worse, hurting more? And having bizarre symptoms. She got an alert from her insurance about its use? She had large notes taken which we reviewed together. She gave me a copy. 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 She is concerned about that as well. She is also very worried about Prolia. She missed her dose from last week. She believes Prolia is dangerous. It can cause pancreatic insufficiency as she read. Then she had pancreas insufficiency?? .. She's wondering about her bone density not improving, we reviewed her density together in great details. Noted the improvement of 4% in her spine and stable and her hip. Continues to have very low T. scores. 3.2. Explained her scores. Numerous other issues and concerns all reviewed together and addressed. 01/10/15: Since last seen she continues going through incredible amount of stressors, mostly caring for her with advancing worsening dementia. He's having hard time with his cognition and completing simple tasks. She continues to have stable pain everywhere, her entire spine, hands and feet. Seem to be not as bad as before, seem to be more tolerable in general. She continues to have significant dry mouth and frequent mouth sores, also not as bad as before, taking Salagen but it seems to be causing excessive sweating, and drooling. She denies any rashes, she continues to have diarrhea. Alternating with constipation. Recent ER visit for impaction. Has not been taking Celebrex. Has been taking Neurontin 400 mg nightly. She continues not to be on anything for her inflammatory arthritis, continues not to be on anything for her osteoporosis. Numerous issues concerns questions all addressed. 08/22/15: Prolonged visit. Numerous issues concerns and problems to review. She continues to struggle a lot with her health in general and her stressors. Continues to care for her with pretty advanced dementia, in and out from hospitals and nursing homes, most recently in a locked down facility. Each time she visits him she feels pretty bad when leaving. Continues to have significant dryness in her mouth, not as severe as when she first came, no significant mouth sores, wondering about Salagen, it makes her have a cold sweat and drooling, than the dryness return later. Continues with pain not as severe as before it seems, her hands CMC joints her entire spine and back, tolerable symptoms otherwise her knees ankles and feet. She stopped Celebrex a while ago. Continues Neurontin 400 mg. She doesn't want to take any more Prolia, makes her feel sick for a while after the injection. Doesn't seem to be working out but she remains very active and walking all the time. Recent labs reviewed together. 02/20/16: Very complex long visit. Numerous problems and issues, concerns, major updates, large amount of various topics to review and address. Has not been seen in a while. Since last seen she's been struggling a lot with her life in general. But was doing pretty decent with her pain and difficulties, until few days before Memorial Day weekend, she was cleaning up few objects at home, moving things around, she started having some back pain, her helped her cracking upher back, she stopped since her pain got worse, was seen by 2 different physicians so far, over the past 2 weeks, x-rays were completed on February 04, she was told nothing showing on the x-ray, to go see chiropractor. So she had chiropractor visit which caused her an incredible amount of worsening pain. She also follow back with her PCP, February 10. She was given tizanidine. She's been taking that, she's feeling incredibly bad, terrible amount of pain, beyond miserable and unable to move at all, sits or stands or lay down. She had terrible time getting in the car to drive. She feels the pain over the entire midline spine, specially around her lower thoracic and upper lumbar. She has no significant tingling numbness weakness in her legs but she's weak overall from the pain. 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 Reviewed her x-ray from February 04, surprisingly showing L1 compression fracture, which was not present in her previous lumbar spine x-rays, previous to that was in August 2013. 05/01/2016: Prolonged visit today. Long time spent reviewing updates, her numerous imaging she completed since last seen, her frustration with her significant symptoms and pain, and apparently a major misunderstanding with our office staff..... She apparently was told when she called first week March 2016, very soon after her above appointment with me in February, she asked to be seen for severe back pain, that same day she called, might answer was at that time pretty compassionate and logical, to proceed with pain control, through pain management ideally given her significant fractures causing her pain, and to see orthopedic surgery for possible kyphoplasty or other interventions.. She apparently was told I refusedto see her!!! Which was the furthest from truth. I would not say I refused to see any of my patients, but always give up plan or reason, and if needed, always offer an appointment as soon as possible. Plus in her case, I would not have been able to help her at all, given her pain being from fractures, needing narcotics or other intervention. Keeping in mind, that I just saw her 2-1/2 weeks prior. Patient was terribly disappointed and upset with the staff telling her I refused to see her the same day and repeatedly we reviewed that during her visit today. She continues to have pretty severe pain, but she seemed a lot more comfortable sitting on the chair today compared to last time. She has not been able to wear any back brace. She had numerous imaging, reviewed them together. Noted multiple compression fractures, not only in L1, but seems to be pretty much all over her entire lumbar spine, L1-L2 L3-L4 all with compression fractures. She continues to be completely against going back on osteoporosis therapy, she does not want to use Prolia again. She believes it caused her significant flulike symptoms and infections. Reviewed all of her meds. 02/25/17: NOT seen in almost one year. Large topics reviewed during her visit with numerous updates, various medical conditions, discussions, counseling etc. etc. Since last seen, she continues to have all of her complex medical conditions, plus several more updates. She continues to have moderate amount of pain, occasionally worse, over her low back and sides, both hands MCP PIP wrists, her legs, but lately she doesn't seem to have limiting symptoms, she feels her pain is under decent control. Doesn't seem to be taking her Celebrex, stable and improved low back pain where she had the fracture. No recent falls. Had episodes of vertigo, resolved since. Had an episode of right sided facial paralysis? Lasted only several hours, by the time she went to ER, it's resolved. Imaging did not reveal any stroke or blockage? Continues to have stable dry eyes dry mouth, no major recent mouth sores and painful tongue as she did before. Continues taking Plaquenil daily, Salagen. Wondering about those meds, refills. Continues to be off Prolia, she prefers not to go back at all. Not taking any therapy for her osteoporosis. She is well aware of the risks. Reviewed her diet and food choices, trying to gain weight, she gained some lately. Stable GI symptoms, stable colitis. Seeing a new GI physician. Reviewed all of her labs, meds etc. 08/12/17: Pretty complex visit with a lot to review his usual, very large amount of comorbidities underlying issues, questions concerns all reviewed and addressed, extensive amount of encouragement counseling reassurance, etc. reviewing therapies management long-term prognosis etc. Continues to struggle a lot with her pain, hurting pretty much all over, some days a lot more limiting than other days, not as bad as when she had her initial fracture. Neck really bad with tightness stiffness, thoracic and lumbar spine, pain over both hands and thumbs, pain in both knees and feet. She feels pretty stiff all the time, specially in the morning and getting up from seated position She continues to have various skin lesions but no significant petechia as before. Struggling a lot with GI symptoms, having epigastric pain, discomfort, was told it's not from Crohn's disease, she's not sure she was thinking she could have it or microscopic colitis. She has been following closely with GI. She has been trying to eat well but reviewed her diet in great amount of depth, seem to be consuming large amount of sugar and carbs, quite excessive. Has been off Celebrex given GI symptoms. Wondering about trying some therapy for her arthritis, seem to be slightly more open to that. Continues Plaquenil Salagen otherwise. Continues to struggle with her vision, and her melanoma, following closely for that as well. 12/22/17: Prolonged complex visit as usual, to review numerous underlying conditions comorbidities problems, extensive amount of time to address all questions concerns, counseling, reassurance, etc. She seemed to be doing pretty decent despite her numerous active medical problems and issues. She seems quite thankful for adjusting her diet and food choices, intake, she seemed to be following as much as she could, having very hard time with certain foods and ingredients, reviewed in great amount of depth, long time spent addressing. Having hard time missing her morning donuts and desserts. Trying to find substitute for all the sweets she used to eat daily. She also had numerous questions about certain foods to avoid and to take given by her GI doctor. Reviewed her available documents. Stable GI symptoms otherwise, intermittent epigastric pain discomfort. Stable dry eyes dry mouth. 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 Have possible radiation damage. Tolerable over all pain, stable arthritis in both hands MCP PIP DIP with enlargement spurring deviations no worsening, no major flares in her joints, stable pain in her knees ankles feet no significant worsening, having hard time standing up from seated position at times, but no significant falls for a while. Intermittent worsening pain in her mid back and low back where she had the fractures. Continues to be on no therapy for her osteoporosis, her choice. Continues taking Plaquenil Salagen and numerous meds reviewed together. Gabapentin. Small erythematous scaly lesion right hands, following with dermatology. Continues to be off all NSAIDs and Celebrex. Taking Percocet for pain. Going through stress and problems, worried about her with worsening dementia and daughter with severe sarcoid. Going through counseling. 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) - Bleeding ulcer - Bowel trouble 04/2003 4 BM's in month - Bronchitis 2014 - Cataract left eye - Colitis lymphocytic - Crohn's disease (HCC) - Dental caries - Depression - Diverticulosis - Dyslipidemia - Dysuria - Exanthematous disorder - Eye cancer ([facility]) - Fibromyalgia 1991 - Gastroesophageal reflux disease - Glossodynia - Hand joint pain - High cholesterol - History of pneumonia as a child - Hyperlipidemia - Increased frequency of urination - 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 scc called [facility] - Sjogren's disease (HCC) [facility] - Sjogren's disease (HCC) 2005 - Tear film insufficiency - Urinary tract infectious disease - Vitamin D deficiency - Vitamin D deficiency PAST SURGICAL HISTORY Procedure Laterality Date - APPENDECTOMY 1954 [facility] - APPENDECTOMY - BACTERIAL AG DETECT CSF () 193 - CHOLECYSTECTOMY 05/07/2005 Dr.Robert Nam - CLIN DEPRESSION SCREEN DOC - COLONOSCOPY 11/2010 polyps, inflammation - CT ABDOMEN - CYSTOSCOPY 01/19/2008 - DANLA DIAGNOSTIC OR THERA - IPAS - EKG 05/11/2015 SR with [facility] - ENDOSCOPY PROC 1977 [place] - EYE SURGERY PROCEDURE 12-07-2015 Pars plana vitrectomy, endolaser, air fluid exchange, left eye - HYSTERECTOMY HX 03/18/2002 Dr.Mark Shah - LAP REPAIR BLADDER INJURY 03/18/2002 - MRI BRAIN W AND W/O - PAST SURGICAL HISTORY OF 07/2014 squamous cell exc rt. 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 - PULMONARY FUNCTION TEST 01/04/2014 - RECTAL REPAIR W OR W/O MESH 03/18/2002 - REMOVAL ADENOIDS,PRIMARY,<12 Y/O Adenoidectomy - REMOVAL OF TONSILS,<12 Y/O Tonsillectomy - RETROGRADE PYELOGRAM 01/19/2008 bilateral - SPINAL FLUID TAP, DIAGNOSTIC [facility] - TONSILLECTOMY HX 04/03/42 [facility] - VAGINAL HYSTERECTOMY W/VAGINAL/BLADDER REP 2001 A/P repair - VITRECTOMY,MECHANICAL Left 12/07/2015 PPV (Pars Plana Vitrectomy) Health Maintenance Procedures There are no preventive care reminders to display for this patient. Discussed health maintenance, including regular aerobic exercise, low fat diet, and periodic exams. Health Maintenance Immunizations Given Immunizations: Immunization History Administered Date(s) Administered Influenza Seasonal - High Dose - Age 65+ 05/25/2015 05/26/2015 06/06/2016 Pneumococcal-13 Vac Conjugate 05/25/2015 05/26/2015 TD Adult 06/24/2004 Tdap (Age 7+) 04/17/2017 Current Outpatient Prescriptions: gabapentin (NEURONTIN) 300 mg capsule Take 1 capsule by mouth twice daily for 90 days. At 4 pm and 7 pm. venlafaxine ER (EFFEXOR XR) 75 mg 24 hr capsule Take 1 capsule by mouth once daily. pramipexole (MIRAPEX) 0.25 mg tablet Take 0.5 tablets by mouth four times daily. At 3:30, 6,8 and 10 pm. clonazePAM (KLONOPIN) 0.5 mg tablet Take 0.5 tablets by mouth daily at bedtime for 90 days. oxyCODONE-acetaminophen (PERCOCET) 5-325 mg tablet Take 0.5 tablets by mouth twice daily for 30 days.Earliest Fill Date: 11/25/17 clindamycin (CLEOCIN) 150 mg capsule Take 1 capsule by mouth once daily. 4 capsule(s) By mouth as directed atorvastatin (LIPITOR) 10 mg tablet Takes 5 mg every other day PEG 400-propylene glycol (SYSTANE) 0.4-0.3 % ophthalmic solution Use 1 Drop in both eyes as needed. hydroxychloroquine (PLAQUENIL) 200 mg tablet Take 1 tablet by mouth once daily. pilocarpine (SALAGEN, PILOCARPINE,) 5 mg tablet Take one three times daily (Patient taking differently: Take half times daily) melatonin 3 mg Take 1 tablet by mouth daily at bedtime. ergocalciferol, vitamin D2, (VITAMIN D) 50,000 unit capsule Takes 1 time monthly ondansetron orally disintegrating (ZOFRAN ODT) 4 mg disintegrating tablet Take 1 tablet by mouth every 12 hours as needed for Nausea/Vomiting. BENEFIBER, WHEAT DEXTRIN, ORAL Take by mouth. omeprazole (PRILOSEC) 20 mg capsule Take 1 capsule by mouth once daily. COMPOUNDED PRESCRIPTION Hospital bed Dx: M54.6, M19.90, M25.532, M47.816, F41.8, R53.1, Z91.81 aspirin, enteric coated (ASPIRIN, ENTERIC COATED) 81 mg EC tablet Take 81 mg by mouth once daily. Calcium Carbonate (CALCIUM ANTACID) 320 mg (750 mg) chew Take by mouth. Calcium Citrate-Vitamin D3 (CITRACAL+D) 315-250 mg-unit tab 4 tablet(s) By mouth Daily Flaxseed Oil oil Multivitamins-Iron tab Saliva Substitution Combo No.5 (NEUTRASAL) 538 mg pwpk Use as instructed. 1 packet(s) Oral Rinse 2-10 A Day prn VITAMIN B COMPLEX ORAL Take by mouth. docusate sodium (COLACE) 100 mg capsule Take 1 capsule by mouth twice daily as needed for Constipation. polyethylene glycol 3350 (MIRALAX) 17 gram/dose powder Takes as needed for constipation cycloSPORINE (RESTASIS) 0.05 % ophthalmic emulsion 1 Drop twice daily. camphor-menthol (SARNA ANTI-ITCH) lotion Apply 1 application to affected area as needed. No current facility-administered medications for this visit. ALLERGIES Allergen Reactions - Zoloft [Sertraline] Diarrhea hospitalized for week - Bactrim Ds [Sulfame* Mental Status Change, GI Upset - Celexa [Citalopram] Diarrhea - Codeine GI Upset - Contrast Dye Swelling 10/22/15-patient states she is allergic to CT contrast dye. - Cymbalta [Duloxetin* Diarrhea - Iodinated Contrast-* Other: See Comments IV Dye - Iodine And Iodide C* Unknown - Lamictal [Lamotrigi* [place] very drugged Pt. States the same thing happened in 2005 as well. - Med-Hist Unknown prednisolone opthalmic - Medrol [Methylpredn* Rash - Metoclopramide Unknown - Penicillins Unknown - Phenergan [Prometha* Involuntary body movements, mostly in feet and legs - Prednisolone Acetate Intolerance Itching and swelling - Promethazine Other: See Comments - Reglan [Metoclopram* Involuntary body movements in different parts of the body - Zoloft [Sertraline * Unknown FAMILY HISTORY Problem Relation Age of Onset - Diabetes Father - Heart Father - Stroke Father - Cataract Father - Cataract Mother - parkinson's [OTHER] Mother - Diabetes Paternal Aunt - Diabetes Paternal Uncle - Breast Cancer Sister - sarcoidosis [OTHER] Daughter - Asthma Other - Cancer Other - Hypertension Other - Osteoporosis Other - crohn's [OTHER] Other - Alcoholism [OTHER] Other - Diabetes mellitus [OTHER] Other - Osteoarthritis [OTHER] Other - Rheumatologic disorder [OTHER] Other - Systemic lupus [OTHER] Other Social History Marital status: Spouse name: Years of education: Number of children: 2 Occupational History Occupation Employer Comment retired Social History Main Topics Smoking status: Never Smoker Smokeless status: Never Used Alcohol use: No Drug use: No Sexual activity: Yes Partners with: Male Other Topics Concern Caffeine Concern Yes Comment:4 per day Special Diet No Comment:Average diet Exercise No Comment:Sedentary Social History Narrative None Noted History review: I have reviewed and modified as needed, ALL the following during the visit: Review of system, physical exam, entire assessment and plan, allergies, past medical history, past surgical history, past family history, and past social history. All changes made if different from prior visits. Review of Systems Constitutional: No weight gain, No weight loss, Fatigue - continues to have, overall weakness, No fever, Patient denies recent falls, Increased risk of falling no recent falls in a while. Eyes (R,L): No eye pain, Eye redness, + reduced vision, ++ left eye diplopia, Blurred vision, Dryness, Feels like something in eye(s), No eye itching Ears (R,L): No tinnitus, No hearing loss Nose, Throat: No epistaxis, No loss of smell, No dryness in nose, No runny nose, Sore tongue, No bleeding gums, Sores in mouth, No loss of taste, Dryness of mouth, No frequent sore throats, No hoarseness, No dysphagia stable sx Cardiovascular: No chest pain, No arrhythmia, Palpitations - stable, No high blood pressure, No heart murmurs Respiratory: No shortness of breath, No nocturnal dyspnea, No swollen legs, No swollen feet, No cough, No dyspnea, No hemoptysis, No wheezing Gastrointestinal: Nausea - stable, No vomiting of blood or coffee ground material, Stomach pain relieved by food or milk, No jaundice, Constipation, Diarrhea, No blood in stool, No black stools, Heartburn Genitourinary, Female: No dysuria, No hematuria, No increased frequency of urination, No nocturia, No urinary incontinence, No kidney stone, No pelvic pain Menstrual History: No bleeding after menopause Hematologic, Lymphatic: No swollen glands, No lymph node tenderness, No anemia, Does not bleed easily Musculoskeletal: Morning stiffness, Stiffness lasting About 5-20 at a time (minutes), Joint pain, No muscle weakness, Muscle tenderness, No joint swelling, Joints affected in the last 6 months: very severe back pain since 2015, Back pain, numerous fractures - improved pain in general. 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) following closely Neurologic: Headache, No dizziness, No syncope, No muscle spasms, No tingling, No loss of consciousness, Sensitivity or pain of hands and/or feet, No memory loss, No night sweats Psychiatric: Excessive worries, Feeling anxious, Not easily losing temper, Feeling depressed, Not feeling agitated, Difficulty falling asleep, Difficulty staying asleep Endocrine: No polydipsia, Intolerant of cold, Not intolerant of heat Allergic, Immunologic: No frequent sneezing, No susceptibility to infections Other Objective Vital Signs BP 120/72 (BP Site: Right Arm, BP Position: Sitting) Pulse 85 Temp 36.4 ?C (97.6 ?F) Ht 149.9 cm (4' 11) Wt 47.8 kg (105 lb 6.4 oz) BMI 21.29 kg/m2 Physical Exam Constitutional: Appears very comfortable, much improved from February 2016 when she had the acute fracture Appearance consistent with age Mental Status: Alert, Oriented, Cooperative, Affect normal Eyes (R,L): No conjunctival injection, Eyelid normal, Sclera normal, No ciliary flush, Pupil size and shape normal, Fundoscopy normal Nose, Throat: External nose normal, No nasal ulcer, No oral ulcer, Throat examination normal no visible sores Neck: Neck symmetrical, Trachea midline, No neck mass, No thyromegaly Vascular: Peripheral pulses normal, Temporal pulse present, No temporal artery tenderness, Carotid pulse normal, No carotid bruit, No varicose veins, No upper extremity edema, No leg edema, No pedal edema Gastrointestinal: Abdomen soft, No hepatomegaly, No splenomegaly, No abdominal tenderness, No abdominal mass Lymphatic: No cervical lymphadenopathy Musculoskeletal: No joint tenderness present, Joint swelling present, No decreased ROM in joints present, Muscle strength normal, Spinal tenderness present, No SI joint tenderness present, Tender points present Stable persistent Moderate OA changes in both hands, noticeable squaring of both CMC joints, no findings consistent with RA changes, no current swelling over MCP PIP joints, no rheumatoid nodules, no swelling or reduction range of motion in both wrists. Unremarkable exam over both knees ankles and toes. Pretty abnormal exam February 2016 with excruciating pain over the midline spine, unable to even move to complete the exam at that time Greatly improved. minimal midline tenderness but patient is a lot more comfortable w/ her back. Skin: No alopecia, No skin rash, No skin lesion, No skin ulcer, No Pits, No Thickening, No Color changes, No telangiectasias, No Nail ridging, No Nail pitting, No Onycholysis Has not had any rashes in a while, improved BLE purpura petechia Neurologic: Motor and sensory exam WNL, No tremor, Cranial nerves II to XII intact, Biceps reflex normal, Triceps reflex normal, Knee reflex normal, Ankle reflex normal, Negative Phalens test, Negative Tinels sign of wrist Lab Results: Glucose 70 02/11/2016 ALT 18 12/07/2015 WBC 7.52 12/07/2015 Hemoglobin 12.4 12/07/2015 Platelet Count 174 12/07/2015 WSR 2 08/23/2013 CRP <0.29 08/23/2013 Component Latest Ref Rng AND Units 02/06/2017 WBC 3.70 - 11.00 k/uL 8.45 RBC 3.90 - 5.20 m/uL 5.07 Hemoglobin 11.5 - 15.5 g/dL 14.2 Hematocrit 36.0 - 46.0 % 46.5 (H) MCV 80.0 - 100.0 fL 91.7 MCH 26.0 - 34.0 pG 28.0 MCHC 30.5 - 36.0 g/dL 30.5 RDW-CV 11.5 - 15.0 % 14.0 Platelet Count 150 - 400 k/uL 276 MPV 9.0 - 12.7 fL 11.1 Neut% % 65.7 Abs Neut (ANC) 1.45 - 7.50 k/uL 5.55 Lymph% % 22.8 Abs Lymph 1.00 - 4.00 k/uL 1.93 Kimball% % 8.5 Abs Kimball 0.00 - 0.86 k/uL 0.72 Eosin% % 2.6 Abs Eosin 0.00 - 0.45 k/uL 0.22 Baso% % 0.4 Abs Baso 0.00 - 0.10 k/uL 0.03 Nucleated Reds 0 /100 WBC 0.0 NRBC 0 /100 WBC 0 Absolute nRBC k/uL 0.00 Diff Type Auto Diff Protein, Total 6.3 - 8.0 g/dL 7.0 Albumin 3.9 - 4.9 g/dL 4.1 Calcium 8.5 - 10.2 mg/dL 9.6 Bilirubin, Total 0.2 - 1.3 mg/dL 0.3 Alkaline Phosphatase 32 - 117 U/L 80 AST 13 - 35 U/L 36 (H) Glucose 74 - 99 mg/dL 73 (L) BUN 7 - 21 mg/dL 11 Creatinine 0.58 - 0.96 mg/dL 0.68 Sodium 136 - 144 mmol/L 143 Potassium 3.7 - 5.1 mmol/L 4.1 Chloride 97 - 105 mmol/L 101 CO2 22 - 30 mmol/L 28 Anion Gap 9 - 18 mmol/L 14 ALT 7 - 38 U/L 20 eGFR- >60 eGFR-All Other Races . >60 Iron 41 - 186 ug/dL TIBC 232 - 386 ug/dL Transferrin Saturation 15 - 57 % Ferritin 14.7 - 205.1 ng/mL TSH 0.400 - 5.500 uU/mL 2.340 Free T4 0.9 - 1.7 ng/dL 1.0 Component Latest Ref Rng AND Units 11/17/2017 WBC 3.70 - 11.00 k/uL 7.61 RBC 3.90 - 5.20 m/uL 4.86 Hemoglobin 11.5 - 15.5 g/dL 13.5 Hematocrit 36.0 - 46.0 % 42.8 MCV 80.0 - 100.0 fL 88.1 MCH 26.0 - 34.0 pG 27.8 MCHC 30.5 - 36.0 g/dL 31.5 RDW-CV 11.5 - 15.0 % 13.8 Platelet Count 150 - 400 k/uL 262 MPV 9.0 - 12.7 fL 11.6 Neut% % 70.3 Abs Neut (ANC) 1.45 - 7.50 k/uL 5.33 Lymph% % 19.7 Abs Lymph 1.00 - 4.00 k/uL 1.50 Kimball% % 8.4 Abs Kimball <0.87 k/uL 0.64 Eosin% % 1.2 Abs Eosin <0.46 k/uL 0.09 Baso% % 0.4 Abs Baso <0.11 k/uL 0.03 Nucleated Reds 0 /100 WBC 0.0 Absolute nRBC <0.01 k/uL <0.01 Diff Type Auto Diff Protein, Total 6.3 - 8.0 g/dL 7.4 Albumin 3.9 - 4.9 g/dL 4.5 Calcium 8.5 - 10.2 mg/dL 9.9 Bilirubin, Total 0.2 - 1.3 mg/dL 0.3 Alkaline Phosphatase 32 - 117 U/L 84 AST 13 - 35 U/L 35 Glucose 74 - 99 mg/dL 86 BUN 7 - 21 mg/dL 10 Creatinine 0.58 - 0.96 mg/dL 0.71 Sodium 136 - 144 mmol/L 138 Potassium 3.7 - 5.1 mmol/L 3.8 Chloride 97 - 105 mmol/L 96 (L) CO2 22 - 30 mmol/L 29 Anion Gap 9 - 18 mmol/L 13 ALT 7 - 38 U/L 20 eGFR- >60 eGFR-All Other Races . >60 Glucose, Urine Neg mg/dL Bilirubin, Urine Neg Ketones, Urine Neg Specific [place], Ur 1.005 - 1.030 Hemoglobin/Blood,Ur Neg pH, Urine 4.5 - 8.0 Protein, Urine Neg mg/dL Urobilinogen, Urine Normal (<1.1) EU Nitrites Neg Leukocytes Neg Color/Appearance comment: Quality Check yes/no Triglyceride <150 mg/dL 86 Cholesterol, Total <200 mg/dL 190 HDL Cholesterol >39 mg/dL 80 VLDL Cholesterol <30 mg/dL 17 LDL Cholesterol <100 mg/dL 93 Fasting Time hrs 11 TC:HDL Ratio <5.10 2.38 LDL:HDL Ratio <2.54 1.16 Non HDL Cholesterol <130 mg/dL 110 TSH 0.400 - 5.500 uU/mL Free T4 0.9 - 1.7 ng/dL Magnesium 1.7 - 2.3 mg/dL 1.9 Cortisol ug/dL Vitamin D 25 Hydroxy 31.0 - 80.0 ng/mL 52.2 EXAM TITLE: ?XR CERVICAL 4V AP/LAT/OBL EXAM DATE/TIME: ?07/15/2017 11:52 AM COMPARISON: ?None. CLINICAL INDICATION/HISTORY: ?Pain TECHNIQUE: ?AP, lateral, and oblique views of the cervical spine are presented. FINDINGS: No fractures or subluxations are noted. Multilevel disc space narrowing is noted, involving C4-C7 levels. There is moderate osteophyte formation. The neural foramina are patent on the left side. ?Limited evaluation of the neural foramina on the right side, due to positioning. Bones appear osteopenic. L MRI 03/25/2016: Mild superior endplate compression deformities of L1, L2, L3, L4, and L5. There is trace residual marrow edema within L2, L3, L4, and L5, suggesting these fractures are late subacute/early chronic. Multilevel lumbar spondylosis as described. Mild to moderate central stenosis at L3-L4 and L4-L5. Moderate degenerative neural foraminal narrowing at the right L4-L5 level and at L5-S1 bilaterally. 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 Patient Education: Patient Education was given today. Impression and Plan: Entire assessment and plan reviewed, noted, and read. Any interval changes, updates, were made appropriately where needed between visits. Michael is a very pleasant female with a complex past medical history including long-standing fibromyalgia, osteoarthritis, previous diagnoses of RA on no specific treatment, previous diagnoses of Sjogren's around 2005, severe long-standing dry eyes, severe long-standing dry mouth, severe dental caries, history of colitis, vitamin D deficiency, severe osteoporosis status post Forteo for 2 years in the past, intolerant to p.o. 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 I confirmed Michael's diagnosis for Sjogren's, severe long- standing dry eyes and dry mouth. Outside records and entire labs done June 2011, she has negative serologies with negative GORAN rheumatoid factor, GAURI panel, inflammatory markers etc. I do not believe that she has RA. She definitely has OA, pretty mild and not very symptomatic mostly over both hands She has a very large painful sore over her tongue, which is bothering her the most. Possibilities are for aphthous ulcer,? Doubt malignancy but needs to watch closely, consider comprehensive oral exam,... PATH neg for CA. She did have painful genital ulcers in the past, currently has some pain with urination over the right side, very unlikely for Behcet's (not the usual age her history at all!)... Very possible Crohn's disease, would explain her GI symptoms, would explain her mouth sores as well, also would explain her inflammatory symptoms over her axial and peripheral joints. Workup through GI seems to be unremarkable for IBD ? B cataract sx Summer 2011 ACUTE onset rash... on exam c/w palpable purpura ... most concerning possibilities for vasculitis,? Isolated skin vasculitis,? HSP (doubt since patient has no abdominal symptoms, joint symptoms, atypical age, etc.), ? Thrombocytopenia, ? Other etiologies.... rash improved. Previously worsening overall symptoms, most likely related to significant increase in stressors and worries Previous Left eye corneal laceration? Infection, given antibiotic and steroid eyedrops, not clear what's the diagnoses. Worrisome weight loss, epigastric symptoms, malaise,? Unusual constellation of symptoms with more GI symptoms diarrhea? Very very long counseling and discussion with patient regarding possibilities. Large range of differential. Apparently had so much work up no evidence for any malignancy,? Gastritis,? Other clear explanation to her symptoms.? Sensitivity to gluten/wheat,? Other referred pain from her thoracic spine causing epigastric symptoms,? Multiple gastric polyps noted on her EGD reports? Relation, etc. unifying diagnosis would be Crohn's disease with associated inflammatory arthritis/spondylitis. Would explain her GI symptoms and weight loss. Since previous imaging and endoscopies did not show any malignancies or other explanations. Again workup unremarkable per patient ..... All above reviewed and updated, noted: Severe alternating diarrhea/constipation, s/p ER visit w/impaction in the past Diffuse secondary OA Stable inlfammatory spondylitis - slightly better compared to before Was very reasonable to proceed with TNF inhibitors trial for at least 4 months and assess her symptoms. She is definitely not a candidate for DMARD or methotrexate. (Very frail, significant GI problems, significant mouth sores already, ... plus the lack of benefit) BUT COULD not take Humira more than 4 shots !!! and she prefers not to take again. Hold off any therapies per patient. Including osteoporosis treatment, her inflammatory tried his treatment. She gets side effects and unusual reactions. Pretty severe back pain, combination of factors, moving heavy objects around at home, cracking her back, going to chiropractor, et cetera. Most likely relating to NEW L1 compression fracture. Even that it's very mild compression based on the reports, but patient had more many chelation since x-ray were completed February 04, probably making her worse?? The amount of pain she is then, is quite concerning, for any further compromise to her cord or nurse. On top of the compression fracture. Patient was so much pain and discomfort at her visit in February 2016, was offered to go to ER and admission possibly for pain control and further evaluation, probably further imaging, she needs probably CT scan or MRI with definite pain control, orthopedic evaluation. Might not be a candidate for kyphoplasty, following with ortho. Patient counseled and reviewed her high risk for further fractures. She is well aware of her risk Reviewed her updated bone density, T score -3.5, automatically pretty severe osteoporosis with her numerous vertebral fractures anyway She wants to remain without medications for now. Encouraged patient to consider returning to Prolia - she does NOT want. Transient right-sided facial paralysis,? TIA/doubt Sawant's palsy... Watch with time Previously had noticeably worsened overall joint symptoms - most likely from such poor dietary intake. Very high intake of sugar - working hard on reducing. Overall seem to be doing pretty well despite underlying conditions. Patient congratulated and encouraged to continue. Continues to be on no therapy for her osteoporosis. Plan: Sjogren's, seronegative, reading given to patient Continue Plaquenil for sure, consider dropping back the dose given her small weight to 200 mg daily Continue Restasis eyedrops Switched Evoxac to Salagen given cost, helping BUT causing sig sweating/drooling. Consider taking half tablet of Salagen. 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 She eats regular diet (with some modification but not gluten-free ) Very possible Crohn's disease as detailed above. Plan to proceed with Humira every other week, long discussion and counseling with patient. Possible side effects and toxicities, the slight increase risk of malignancy and infection.. never completed. QuantiFERON negative She wants to continue holding off biologics. Consider low dose SC MTX - would help her diffuse enthesitis! Long discussion Comprehensive labs all returned unremarkable before Update labs as above. Short course prednisone trial .. helped her joint pain. PPI, Prilosec in the morning Celebrex for pain - has not been taking (?GI concerns) Osteoporosis - updated DXA '16 reviewed again with patient prolia she doesn't want to take anymore. She does not want to take anything. I repeatedly Warned patient regarding going untreated. Very long discussion regarding osteoporosis, her T. scores, her risk for fracture, optimizing her risk, etc. safety of Prolia. At least strengthening exercises and weightbearing. Reminded to follow daily. Severe back pain 2015, as detailed above Small amount of Vicodin given at that time to patient until she sees orthopedic surgery Appointment arranged for her to be seen the following morning Movantic samples given to avoid severe constipation with Vicodin use Vit.D 50,000 once/month Patient reassured Diffuse OA stable - used to be symptomatic both hands Consider some splints Voltaren gel Quad strengthening encouraged, stationary bike Trochanteric bursitis fall '12 ... intermitent sx. Hold off injections given her osteoporosis, unless really needed Neurontin for pain successful 600mg/d .. In two doses Diet and food choices reviewed and counseled. Counseling for stress / anxiety Very long discussion and counseling with patient regarding her conditions and the appropriate management at this point. 6 months CNOV Observed: 12/22/2017 Status: COMPLETED Source: [facility] 9:15 AM CLINIC OTHER [facility]AMP[facility] REPOSITORY Office Visit ([facility]) MICHAEL MOLINA ([id number]) 1935 F Date Time Provider Department 12/22/17 9:15 AM HAIDER MONTES During your visit today, we recorded the following information about you: Temperature Pulse Blood pressure Weight 97.6 degrees 85/minute 120/72 47.8 kg Height 1.499 m Haider Montes MD 12/22/2017 10:14 AM Signed Subjective History of Present Illness: General HPI: Michael is a very pleasant 82 female with a complex past medical history including long-standing fibromyalgia, osteoarthritis, previous diagnoses of RA on no specific treatment, previous diagnoses of Sjogren's around 2005, severe long-standing dry eyes, severe long-standing dry mouth, severe dental caries, history of colitis/possible Crohn's disease, vitamin D deficiency, severe osteoporosis status post Forteo for 2 years in the past, intolerant to p.o. 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 Pretty severe back pain. 'INITIAL visit: Michael reports suffering from are extremely dry eyes and dry mouth for many years, was finally diagnosed with Sjogren's around 2005. Over the years she has been on different treatment off and on, her Plaquenil was given and stopped several times, recently restarted around early 2010, and the dose was recently increased from 200 mg to 300 mg daily. She also takes Restasis eyedrops for many years, she uses Salagen for dry mouth 3 times a day. She had a significant flare May 2011 with extreme painful mouth and tongue ulcerations, told she had a Sjogren's flare, given a course of prednisone which didn't seem to help much. She continues to have extremely painful sore on her tongue with deep cracks. Was checked for possible yeast, and given nystatin which she is still using without help. She is asking for help she's quite miserable. Her joints hurts at times, mostly over both hands MCP PIP and DIP joints, both thumb base, she was even told she had RA, she is not on any specific treatment for it. For her osteoporosis she is not currently on any protection, recently was on IV Boniva, stopped around 2009. Numerous outside records, all reviewed in details. Including various labs, DEXA scan, her notes, etc. 05/25/13: Has not been doing well at all. A lot of stress, her with his dementia, worsening it seems, her daughter getting sicker with sarcoidosis. She is over wound and can't cope well enough. Was given an antidepressant, didn't seem to help. She continues with joint pain, mostly over her hands and low back. Not as severe as last time. Continues colchicine and Plaquenil. Continue Celebrex 100 mg daily. Had recent labs, reviewed together in details. Noted slightly elevated ferritin otherwise unremarkable. Continues Neurontin 600 mg daily. 08/23/13: NOT feeling well at all, ++fatigue/generalized weakness,+malaise,poor appetite/nausea/upset stomach/lost 5more lbs/had transient bld inurine.... had numerous tests:CTscans/BrainMRI/EGD..al ok?(per pt).. she feels quite miserable. Joints are not too bad! hands/knees/feet are not as bad. ++pain in low back/sides/occasional in B wrists. No rashes. She even stopped her Celebrex thinking it could be causing her stomach pain, no difference off it. Reviewed all of her available records. 03/01/14: Has not been doing well at all. Continues to have weight loss, continues to have abdominal pain and diarrhea, no blood in the stool. Continues to have extreme amount of fatigue, exhaustion, generalized weakness. No cancer or explanation to all of her symptoms. She's very miserable. Also having some more joint pain, both hands knees feet and low back. Hurting so bad over her sides. Both thumbs and the bases. Wondering what else to do. 05/31/14: Has been miserable. So much stress, hurting so bad all over her spine and body, it even hurts to do simple tasks, even folding laundry. She has exhaustion and fatigue, continues to have GI problems, complete workup did not seem to explain her symptoms. Her GI Dr. could not tell her why she's having lack of appetite diarrhea and pain.? Biopsies, I do not have for my review. She wanted to try Humira, she took only for 2 or 3 injections and stopped it since she couldn't tell if she was worse or what. She's now thinking she would like to try it again. She developed an unusual eruption on her right cheek last week, for no apparent reason, when she woke up, was not itchy or painful or burning (??) And it's resolved after about 2-3 days on its own, had less rash on her left cheek. She also was started on amitriptyline, just few days prior to the rash. It's the only thing that she did different. Has been off colchicine and she's wondering if it's making her worse to be off. Numerous questions and concerns all addressed. 08/09/14: Complex case, situation. Extensive amount of time needed to complete visit. Numerous issues concerns, symptoms problems, data, notes, etc. 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 Has not been doing well. Continues to be miserable with various symptoms. Continues to have dry eyes dry mouth and intermittent mouth sores not as severe as the previous years. Continues to have extreme fatigue some days worse than others. Continues to have pain all over her spine, also some days worse than others. Recently had a flare with extreme pain over her entire chest and neck, epigastric area? She did not seek any help or tension. This has slightly improved since. Continues to have pain in both hands, her legs. Low back and sides. She has been off colchicine. Wondering if she should return but reminded her about the diarrhea. She continues to have that intermittently. Continues to go through a tremendous amount of stress and pressure, caring for her with worsening behavior, Alzheimer's. Tried using Humira, only 4 shots, she thinks it made her worse, hurting more? And having bizarre symptoms. She got an alert from her insurance about its use? She had large notes taken which we reviewed together. She gave me a copy. 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 She is concerned about that as well. She is also very worried about Prolia. She missed her dose from last week. She believes Prolia is dangerous. It can cause pancreatic insufficiency as she read. Then she had pancreas insufficiency?? .. She's wondering about her bone density not improving, we reviewed her density together in great details. Noted the improvement of 4% in her spine and stable and her hip. Continues to have very low T. scores. 3.2. Explained her scores. Numerous other issues and concerns all reviewed together and addressed. 01/10/15: Since last seen she continues going through incredible amount of stressors, mostly caring for her with advancing worsening dementia. He's having hard time with his cognition and completing simple tasks. She continues to have stable pain everywhere, her entire spine, hands and feet. Seem to be not as bad as before, seem to be more tolerable in general. She continues to have significant dry mouth and frequent mouth sores, also not as bad as before, taking Salagen but it seems to be causing excessive sweating, and drooling. She denies any rashes, she continues to have diarrhea. Alternating with constipation. Recent ER visit for impaction. Has not been taking Celebrex. Has been taking Neurontin 400 mg nightly. She continues not to be on anything for her inflammatory arthritis, continues not to be on anything for her osteoporosis. Numerous issues concerns questions all addressed. 08/22/15: Prolonged visit. Numerous issues concerns and problems to review. She continues to struggle a lot with her health in general and her stressors. Continues to care for her with pretty advanced dementia, in and out from hospitals and nursing homes, most recently in a locked down facility. Each time she visits him she feels pretty bad when leaving. Continues to have significant dryness in her mouth, not as severe as when she first came, no significant mouth sores, wondering about Salagen, it makes her have a cold sweat and drooling, than the dryness return later. Continues with pain not as severe as before it seems, her hands CMC joints her entire spine and back, tolerable symptoms otherwise her knees ankles and feet. She stopped Celebrex a while ago. Continues Neurontin 400 mg. She doesn't want to take any more Prolia, makes her feel sick for a while after the injection. Doesn't seem to be working out but she remains very active and walking all the time. Recent labs reviewed together. 02/20/16: Very complex long visit. Numerous problems and issues, concerns, major updates, large amount of various topics to review and address. Has not been seen in a while. Since last seen she's been struggling a lot with her life in general. But was doing pretty decent with her pain and difficulties, until few days before , she was cleaning up few objects at home, moving things around, she started having some back pain, her helped her ANDquot;cracking upANDquot;her back, she stopped since her pain got worse, was seen by 2 different physicians so far, over the past 2 weeks, x-rays were completed on February 04, she was told nothing showing on the x-ray, to go see chiropractor. So she had chiropractor visit which caused her an incredible amount of worsening pain. She also follow back with her PCP, February 10. She was given tizanidine. She's been taking that, she's feeling incredibly bad, terrible amount of pain, beyond miserable and unable to move at all, sits or stands or lay down. She had terrible time getting in the car to drive. She feels the pain over the entire midline spine, specially around her lower thoracic and upper lumbar. She has no significant tingling numbness weakness in her legs but she's weak overall from the pain. 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 Reviewed her x-ray from February 04, surprisingly showing L1 compression fracture, which was not present in her previous lumbar spine x-rays, previous to that was in August 2013. 05/01/2016: Prolonged visit today. Long time spent reviewing updates, her numerous imaging she completed since last seen, her frustration with her significant symptoms and pain, and apparently a major misunderstanding with our office staff..... She apparently was told when she called first week March 2016, very soon after her above appointment with me in February, she asked to be seen for severe back pain, that same day she called, might answer was at that time pretty compassionate and logical, to proceed with pain control, through pain management ideally given her significant fractures causing her pain, and to see orthopedic surgery for possible kyphoplasty or other interventions.. She apparently was told ANDquot;I refusedANDquot;to see her!!! Which was the furthest from truth. I would not say I refused to see any of my patients, but always give up plan or reason, and if needed, always offer an appointment as soon as possible. Plus in her case, I would not have been able to help her at all, given her pain being from fractures, needing narcotics or other intervention. Keeping in mind, that I just saw her 2-1/2 weeks prior. Patient was terribly disappointed and upset with the staff telling her I refused to see her the same day and repeatedly we reviewed that during her visit today. She continues to have pretty severe pain, but she seemed a lot more comfortable sitting on the chair today compared to last time. She has not been able to wear any back brace. She had numerous imaging, reviewed them together. Noted multiple compression fractures, not only in L1, but seems to be pretty much all over her entire lumbar spine, L1-L2 L3-L4 all with compression fractures. She continues to be completely against going back on osteoporosis therapy, she does not want to use Prolia again. She believes it caused her significant flulike symptoms and infections. Reviewed all of her meds. 02/25/17: NOT seen in almost one year. Large topics reviewed during her visit with numerous updates, various medical conditions, discussions, counseling etc. etc. Since last seen, she continues to have all of her complex medical conditions, plus several more updates. She continues to have moderate amount of pain, occasionally worse, over her low back and sides, both hands MCP PIP wrists, her legs, but lately she doesn't seem to have limiting symptoms, she feels her pain is under decent control. Doesn't seem to be taking her Celebrex, stable and improved low back pain where she had the fracture. No recent falls. Had episodes of vertigo, resolved since. Had an episode of right sided facial paralysis? Lasted only several hours, by the time she went to ER, it's resolved. Imaging did not reveal any stroke or blockage? Continues to have stable dry eyes dry mouth, no major recent mouth sores and painful tongue as she did before. Continues taking Plaquenil daily, Salagen. Wondering about those meds, refills. Continues to be off Prolia, she prefers not to go back at all. Not taking any therapy for her osteoporosis. She is well aware of the risks. Reviewed her diet and food choices, trying to gain weight, she gained some lately. Stable GI symptoms, stable colitis. Seeing a new GI physician. Reviewed all of her labs, meds etc. 08/12/17: Pretty complex visit with a lot to review his usual, very large amount of comorbidities underlying issues, questions concerns all reviewed and addressed, extensive amount of encouragement counseling reassurance, etc. reviewing therapies management long-term prognosis etc. Continues to struggle a lot with her pain, hurting pretty much all over, some days a lot more limiting than other days, not as bad as when she had her initial fracture. Neck really bad with tightness stiffness, thoracic and lumbar spine, pain over both hands and thumbs, pain in both knees and feet. She feels pretty stiff all the time, specially in the morning and getting up from seated position She continues to have various skin lesions but no significant petechia as before. Struggling a lot with GI symptoms, having epigastric pain, discomfort, was told it's not from Crohn's disease, she's not sure she was thinking she could have it or microscopic colitis. She has been following closely with GI. She has been trying to eat well but reviewed her diet in great amount of depth, seem to be consuming large amount of sugar and carbs, quite excessive. Has been off Celebrex given GI symptoms. Wondering about trying some therapy for her arthritis, seem to be slightly more open to that. Continues Plaquenil Salagen otherwise. Continues to struggle with her vision, and her melanoma, following closely for that as well. 12/22/17: Prolonged complex visit as usual, to review numerous underlying conditions comorbidities problems, extensive amount of time to address all questions concerns, counseling, reassurance, etc. She seemed to be doing pretty decent despite her numerous active medical problems and issues. She seems quite thankful for adjusting her diet and food choices, intake, she seemed to be following as much as she could, having very hard time with certain foods and ingredients, reviewed in great amount of depth, long time spent addressing. Having hard time missing her morning donuts and desserts. Trying to find substitute for all the sweets she used to eat daily. She also had numerous questions about certain foods to avoid and to take given by her GI doctor. Reviewed her available documents. Stable GI symptoms otherwise, intermittent epigastric pain discomfort. Stable dry eyes dry mouth. 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 Have possible radiation damage. Tolerable over all pain, stable arthritis in both hands MCP PIP DIP with enlargement spurring deviations no worsening, no major flares in her joints, stable pain in her knees ankles feet no significant worsening, having hard time standing up from seated position at times, but no significant falls for a while. Intermittent worsening pain in her mid back and low back where she had the fractures. Continues to be on no therapy for her osteoporosis, her choice. Continues taking Plaquenil Salagen and numerous meds reviewed together. Gabapentin. Small erythematous scaly lesion right hands, following with dermatology. Continues to be off all NSAIDs and Celebrex. Taking Percocet for pain. Going through stress and problems, worried about her with worsening dementia and daughter with severe sarcoid. Going through counseling. 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) - Bleeding ulcer - Bowel trouble 04/2003 4 BM's in month - Bronchitis 2014 - Cataract left eye - Colitis lymphocytic - Crohn's disease (HCC) - Dental caries - Depression - Diverticulosis - Dyslipidemia - Dysuria - Exanthematous disorder - Eye cancer (HCC) - Fibromyalgia 1991 - Gastroesophageal reflux disease - Glossodynia - Hand joint pain - High cholesterol - History of pneumonia as a child - Hyperlipidemia - Increased frequency of urination - 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 scc called miller's - Sjogren's disease (HCC) [facility] - Sjogren's disease (HCC) 2005 - Tear film insufficiency - Urinary tract infectious disease - Vitamin D deficiency - Vitamin D deficiency PAST SURGICAL HISTORY Procedure Laterality Date - APPENDECTOMY 1954 [facility] - APPENDECTOMY - BACTERIAL AG DETECT CSF () 1936 - CHOLECYSTECTOMY 05/07/2005 Dr.Robert Nam - CLIN DEPRESSION SCREEN DOC - COLONOSCOPY 11/2010 polyps, inflammation - CT ABDOMEN - CYSTOSCOPY 01/19/2008 - DANDamp;C DIAGNOSTIC OR THERA - IPAS - EKG 05/11/2015 SR with [facility] - ENDOSCOPY PROC 1977 [place] - EYE SURGERY PROCEDURE 12-07-2015 Pars plana vitrectomy, endolaser, air fluid exchange, left eye - HYSTERECTOMY HX 03/18/2002 Dr.Mark Shah - LAP REPAIR BLADDER INJURY 03/18/2002 - MRI BRAIN W ANDamp; W/O - PAST SURGICAL HISTORY OF 07/2014 squamous cell exc rt. 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 - PULMONARY FUNCTION TEST 01/04/2014 - RECTAL REPAIR W OR W/O MESH 03/18/2002 - REMOVAL ADENOIDS,PRIMARY,ANDlt;12 Y/O Adenoidectomy - REMOVAL OF TONSILS,ANDlt;12 Y/O Tonsillectomy - RETROGRADE PYELOGRAM 01/19/2008 bilateral - SPINAL FLUID TAP, DIAGNOSTIC 1955 [facility] - TONSILLECTOMY HX 04/03/42 [facility] - VAGINAL HYSTERECTOMY W/VAGINAL/BLADDER REP 2001 A/P repair - VITRECTOMY,MECHANICAL Left 12/07/2015 PPV (Pars Plana Vitrectomy) Health Maintenance Procedures There are no preventive care reminders to display for this patient. Discussed health maintenance, including regular aerobic exercise, low fat diet, and periodic exams. Health Maintenance Immunizations Given Immunizations: Immunization History Administered Date(s) Administered Influenza Seasonal - High Dose - Age 65+ 05/25/2015 05/26/2015 06/06/2016 Pneumococcal-13 Vac Conjugate 05/25/2015 05/26/2015 TD Adult 06/24/2004 Tdap (Age 7+) 04/17/2017 Current Outpatient Prescriptions: gabapentin (NEURONTIN) 300 mg capsule Take 1 capsule by mouth twice daily for 90 days. At 4 pm and 7 pm. venlafaxine ER (EFFEXOR XR) 75 mg 24 hr capsule Take 1 capsule by mouth once daily. pramipexole (MIRAPEX) 0.25 mg tablet Take 0.5 tablets by mouth four times daily. At 3:30, 6,8 and 10 pm. clonazePAM (KLONOPIN) 0.5 mg tablet Take 0.5 tablets by mouth daily at bedtime for 90 days. oxyCODONE-acetaminophen (PERCOCET) 5-325 mg tablet Take 0.5 tablets by mouth twice daily for 30 days.Earliest Fill Date: 11/25/17 clindamycin (CLEOCIN) 150 mg capsule Take 1 capsule by mouth once daily. 4 capsule(s) By mouth as directed atorvastatin (LIPITOR) 10 mg tablet Takes 5 mg every other day PEG 400-propylene glycol (SYSTANE) 0.4-0.3 % ophthalmic solution Use 1 Drop in both eyes as needed. hydroxychloroquine (PLAQUENIL) 200 mg tablet Take 1 tablet by mouth once daily. pilocarpine (SALAGEN, PILOCARPINE,) 5 mg tablet Take one three times daily (Patient taking differently: Take half times daily) melatonin 3 mg Take 1 tablet by mouth daily at bedtime. ergocalciferol, vitamin D2, (VITAMIN D) 50,000 unit capsule Takes 1 time monthly ondansetron orally disintegrating (ZOFRAN ODT) 4 mg disintegrating tablet Take 1 tablet by mouth every 12 hours as needed for Nausea/Vomiting. BENEFIBER, WHEAT DEXTRIN, ORAL Take by mouth. omeprazole (PRILOSEC) 20 mg capsule Take 1 capsule by mouth once daily. COMPOUNDED PRESCRIPTION Hospital bed Dx: M54.6, M19.90, M25.532, M47.816, F41.8, R53.1, Z91.81 aspirin, enteric coated (ASPIRIN, ENTERIC COATED) 81 mg EC tablet Take 81 mg by mouth once daily. Calcium Carbonate (CALCIUM ANTACID) 320 mg (750 mg) chew Take by mouth. Calcium Citrate-Vitamin D3 (CITRACAL+D) 315-250 mg-unit tab 4 tablet(s) By mouth Daily Flaxseed Oil oil Multivitamins-Iron tab Saliva Substitution Combo No.5 (NEUTRASAL) 538 mg pwpk Use as instructed. 1 packet(s) Oral Rinse 2-10 A Day prn VITAMIN B COMPLEX ORAL Take by mouth. docusate sodium (COLACE) 100 mg capsule Take 1 capsule by mouth twice daily as needed for Constipation. polyethylene glycol 3350 (MIRALAX) 17 gram/dose powder Takes as needed for constipation cycloSPORINE (RESTASIS) 0.05 % ophthalmic emulsion 1 Drop twice daily. camphor-menthol (SARNA ANTI-ITCH) lotion Apply 1 application to affected area as needed. No current facility-administered medications for this visit. ALLERGIES Allergen Reactions - Zoloft [Sertraline] Diarrhea hospitalized for week - Bactrim Ds [Sulfame* Mental Status Change, GI Upset - Celexa [Citalopram] Diarrhea - Codeine GI Upset - Contrast Dye Swelling 10/22/15-patient states she is allergic to CT contrast dye. - Cymbalta [Duloxetin* Diarrhea - Iodinated Contrast-* Other: See Comments IV Dye - Iodine And Iodide C* Unknown - Lamictal [Lamotrigi* ANDquot;[place] very druggedANDquot; Pt. States the same thing happened in 2005 as well. - Med-Hist Unknown prednisolone opthalmic - Medrol [Methylpredn* Rash - Metoclopramide Unknown - Penicillins Unknown - Phenergan [Prometha* Involuntary body movements, mostly in feet and legs - Prednisolone Acetate Intolerance Itching and swelling - Promethazine Other: See Comments - Reglan [Metoclopram* Involuntary body movements in different parts of the body - Zoloft [Sertraline * Unknown FAMILY HISTORY Problem Relation Age of Onset - Diabetes Father - Heart Father - Stroke Father - Cataract Father - Cataract Mother - parkinson's [OTHER] Mother - Diabetes Paternal Aunt - Diabetes Paternal Uncle - Breast Cancer Sister - sarcoidosis [OTHER] Daughter - Asthma Other - Cancer Other - Hypertension Other - Osteoporosis Other - crohn's [OTHER] Other - Alcoholism [OTHER] Other - Diabetes mellitus [OTHER] Other - Osteoarthritis [OTHER] Other - Rheumatologic disorder [OTHER] Other - Systemic lupus [OTHER] Other Social History Marital status: Spouse name: Years of education: Number of children: 2 Occupational History Occupation Employer Comment retired Social History Main Topics Smoking status: Never Smoker Smokeless status: Never Used Alcohol use: No Drug use: No Sexual activity: Yes Partners with: Male Other Topics Concern Caffeine Concern Yes Comment:4 per day Special Diet No Comment:Average diet Exercise No Comment:Sedentary Social History Narrative None Noted History review: I have reviewed and modified as needed, ALL the following during the visit: Review of system, physical exam, entire assessment and plan, allergies, past medical history, past surgical history, past family history, and past social history. All changes made if different from prior visits. Review of Systems Constitutional: No weight gain, No weight loss, Fatigue - continues to have, overall weakness, No fever, Patient denies recent falls, Increased risk of falling no recent falls in a while. Eyes (R,L): No eye pain, Eye redness, + reduced vision, ++ left eye diplopia, Blurred vision, Dryness, Feels like something in eye(s), No eye itching Ears (R,L): No tinnitus, No hearing loss Nose, Throat: No epistaxis, No loss of smell, No dryness in nose, No runny nose, Sore tongue, No bleeding gums, Sores in mouth, No loss of taste, Dryness of mouth, No frequent sore throats, No hoarseness, No dysphagia stable sx Cardiovascular: No chest pain, No arrhythmia, Palpitations - stable, No high blood pressure, No heart murmurs Respiratory: No shortness of breath, No nocturnal dyspnea, No swollen legs, No swollen feet, No cough, No dyspnea, No hemoptysis, No wheezing Gastrointestinal: Nausea - stable, No vomiting of blood or coffee ground material, Stomach pain relieved by food or milk, No jaundice, Constipation, Diarrhea, No blood in stool, No black stools, Heartburn Genitourinary, Female: No dysuria, No hematuria, No increased frequency of urination, No nocturia, No urinary incontinence, No kidney stone, No pelvic pain Menstrual History: No bleeding after menopause Hematologic, Lymphatic: No swollen glands, No lymph node tenderness, No anemia, Does not bleed easily Musculoskeletal: Morning stiffness, Stiffness lasting About 5-20 at a time (minutes), Joint pain, No muscle weakness, Muscle tenderness, No joint swelling, Joints affected in the last 6 months: very severe back pain since 2015, Back pain, numerous fractures - improved pain in general. 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 INGREDI/4 Clinic Other 19510609( [place] SNOMED Repository CT) DRUG/4195 SULFAMETHOXAZOLE-TRIMET Mental Chg [place] 5 6[address]16[facility]) [place] Repository DRUG CITALOPRAM DIARRHEA [place] 5 INGREDI/4 Clinic Other 19510609( [place] SNOMED Repository CT) DRUG METHYLPREDNISOLONE RASH [place] 5 INGREDI/4 Clinic Other 19510609( [place] SNOMED Repository [facility]) DRUG CODEINE GI UPSET [place] 0 INGREDI/4 Clinic Other 19510609( [place] SNOMED Repository [place]) DRUG CONTRAST DYE SWELLING [place] 0 INGREDI/4 Clinic Other 19510609( [place] SNOMED Repository [place]) DRUG DULOXETINE DIARRHEA [place] 0 INGREDI/4 Clinic Other 19510609( [place] SNOMED Repository CT) DRUG LAMOTRIGINE OTHER: SEE C [place] 0 INGREDI/4 Clinic Other 19510609( [place] SNOMED Repository CT) DRUG PROMETHAZINE HCL OTHER: SEE C [place] 0 INGREDI/4 Clinic Other 19510609( [place] SNOMED Repository CT) DRUG METOCLOPRAMIDE HCL OTHER: SEE C [place] 0 INGREDI/4 Clinic Other 19510609( [place] SNOMED Repository CT) DRUG CODEINE GI UPSET [place] 0 INGREDI/4 Clinic Other 19510609( [place] SNOMED Repository CT) DRUG CONTRAST DYE SWELLING [place] 0 INGREDI/4 Clinic Other 19510609( [place] SNOMED Repository CT) DRUG DULOXETINE DIARRHEA [place] 0 INGREDI/4 Clinic Other 19510609( [place] SNOMED Repository CT) DRUG LAMOTRIGINE [place] 0 INGREDI/4 Clinic Other 19510609( [place] SNOMED Repository [place]) DRUG PROMETHAZINE HCL [place] 0 INGREDI/4 Clinic Other 19510609( [place] SNOMED Repository CT) DRUG METOCLOPRAMIDE HCL [place] 0 INGREDI/4 Clinic Other 43982838( [place] SNOMED Repository CT) Drug PENICILLINS UNKNOWN [place] 5 Class/419 Clinic Other 313437( [place] OMED CT) Repository Drug PENICILLINS UNKNOWN [place] 5 Class/419 Clinic Other 118651([facility] OMED CT) Repository NG/027187 SERTRALINE [facility] 006([facility]) Repository NG/138754 SULFAMETHOXAZOLE-TRIMET [facility] 006([facility]) Repository NG/610024 CITALOPRAM [facility] 006([facility]) Repository NG/638750 CODEINE [facility] 006([facility]) Repository NG/356309 CONTRAST DYE [facility] 006([facility]) Repository NG/210334 DULOXETINE [facility] 006([facility]) Repository NG/791601 IODINATED CONTRAST- [facility] 006([facility] ORAL AND IV DYE [facility] D CT) Repository NG/874219 IODINE AND IODIDE [facility] 006([facility] CONTAINING PRODUCTS Health [facility] D CT) Repository NG/098902 LAMOTRIGINE [facility] 006([facility]) Repository NG/803560 MED-HIST [facility] 006([facility]) Repository NG/396512 METHYLPREDNISOLONE [facility] 006([facility]) Repository NG/983957 METOCLOPRAMIDE [facility] 006([facility]) Repository NG/233711 PENICILLINS [facility] 006([facility]) Repository NG/433728 PROMETHAZINE HCL [facility] 006([facility]) Repository NG/448110 PREDNISOLONE ACETATE [facility] 006([facility]) Repository NG/815183 PROMETHAZINE [facility] 006([facility]) Repository NG/318637 METOCLOPRAMIDE HCL [facility] 006([facility]) Repository NG/897844 SERTRALINE HCL [facility] 006([facility]) Repository ENCOUNTERS ENCOUNTERS ADMIT/DISCHARGE ACCOUNT NUMBER ADMITTING ENCOUNTER LOCATION SOURCE CLASS 09/30/2018 [id number] Ambulatory [place] [facility] MEDICAL Repository CENTERBuildi ng:AGHWW2 09/27/2018/10/01/19 [id number] [place], Inpatient [place] 19 Ghasem Encounter [facility] ding:[id number] Repository : XV232Pka: 1 09/27/2018 [id number] [place], Ambulatory BMSBuilding: [place] Ghasem BMS.[facility] Repository 09/27/2018 [id number] [place], Ambulatory BMSBuilding: [place] Ghasem BMS..[facility] Repository 09/27/2018 [id number] [place], Ambulatory BMSBuilding: [place] Ghasem BMS.[facility] Repository 09/27/2018 [id number] [place], Ambulatory BMSBuilding: [place] Ghasem BMS.[facility] Repository 09/27/2018 [id number] [place], Ambulatory BMSBuilding: [place] Ghasem BMS.[facility] Repository 09/27/2018 [id number] [place], Ambulatory BMSBuilding: [place] Ghasem BMS..[facility] Repository 09/27/2018 [id number] [place], Ambulatory BMSBuilding: [place] Ghasem BMS.[facility] Repository 09/27/2018 [id number] [place], Ambulatory BMSBuilding: [place] Ghasem BMS.[facility] Repository 09/27/2018 [id number] [place], Ambulatory BMSBuilding: [place] Ghasem BMS.[facility] Repository 09/27/2018/09/29/19 [id number] Ambulatory [address] Repository 09/14/2018/09/14/19 [id number] Ambulatory [address] Repository 09/13/2018 [id number] Ambulatory [facility] MEDICAL Repository CENTERBuildi ng:[facility] 08/24/2018/08/24/20 [id number] Ambulatory [address] Repository 08/23/2018/08/23/20 [id number] Ambulatory [address] Repository 08/23/2018/08/23/20 [id number] Ambulatory [address] MEDICAL Repository CENTERBuildi ng:[facility] 08/11/2018/08/12/20 [id number] Ambulatory [address] [place] Repository 07/20/2018/07/20/20 [id number] Ambulatory [address] [place] Repository 07/20/2018/07/21/20 [id number] Ambulatory [address] [place] Repository 07/02/2018/07/02/20 [id number] Ambulatory [address] [place] Repository 07/02/2018/07/02/20 [id number] Ambulatory [address] [place] Repository 07/02/2018/07/05/20 [id number] Ambulatory [address] [place] Repository 06/21/2018 [id number] Ambulatory [facility] Other [place] Repository 06/21/2018/06/21/20 [id number] Ambulatory [place] [address] MEDICAL Repository CENTERBuildi ng:AKLBB 06/21/2018/06/21/20 [id number] Ambulatory [address] Other [place] Repository 06/21/2018/06/21/20 [id number] Ambulatory [place] [address] MEDICAL Repository CENTERBuildi ng:AKXRB 06/21/2018/06/21/20 [id number] Ambulatory [address] Other [place] Repository 06/21/2018/06/21/20 [id number] Ambulatory [place] [address] MEDICAL Repository CENTERBuildi ng:BAR 06/08/2018/06/08/20 [id number] Ambulatory [address] Other [place] Repository 06/08/2018/06/08/20 [id number] Ambulatory [place] [address] MEDICAL Repository CENTERBuildi ng:AKBDB 05/12/2018/05/12/20 [id number] Ambulatory [address] Other [place] Repository 05/12/2018/05/12/20 [id number] Ambulatory [place] [address] MEDICAL Repository CENTERBuildi ng:AG[place]HWN 03/31/2018/04/02/20 [id number] Ambulatory [address] [place] Repository 03/30/2018/03/30/20 [id number] Ambulatory [address] [place] Repository 03/30/2018/04/02/20 [id number] Ambulatory [address] Repository 03/17/2018/03/18/20 [id number] Ambulatory [place] [facility] [place] Repository 03/15/2018/03/15/20 [id number] Ambulatory [place] [facility] [place] Repository 03/03/2018 [id number] Ambulatory [facility] ding:PSN Repository 02/02/2018/02/06/20 [id number] Ambulatory [place] [facility] [place] Repository 01/29/2018/02/03/20 [id number] Ambulatory [place] [facility] [place] Repository 01/25/2018/01/27/20 [id number] Ambulatory [place] [facility] [place] Repository 01/15/2018/01/19/20 [id number] Ambulatory [place] [facility] [place] Repository 01/06/2018/01/08/20 [id number] Ambulatory [place] [facility] [place] Repository 01/01/2018/01/05/20 [id number] Ambulatory [place] 18 [facility] Main [place] Repository 12/25/2017/12/30/19 [id number] Ambulatory [place] 18 [facility] Main [place] Repository 12/22/2017/12/23/19 [id number] Ambulatory [place] [facility] Other [place] Repository 12/22/2017/12/23/19 [id number] Ambulatory [address] MEDICAL Repository CENTERBuildi ng:[place]HWN 12/18/2017/12/23/19 [id number] Ambulatory [place] 18 [facility] Main [place] Repository 12/09/2017/12/11/19 [id number] Ambulatory [place] [facility] [place] Repository 11/25/2017/11/27/19 [id number] Ambulatory [place] [facility] [place] Repository 11/17/2017/11/18/19 [id number] Ambulatory [place] [facility] [place] Repository 11/11/2017/11/17/19 [id number] Ambulatory [place] [facility] [place] Repository 10/26/2017/10/29/19 [id number] Ambulatory [place] [facility] [place] Repository 10/21/2017/10/22/19 [id number] Ambulatory [place] [facility] [place] Repository 10/19/2017/10/20/19 [id number] Ambulatory [place] [facility] [place] Repository 10/14/2017/10/15/19 [id number] Ambulatory [place] [facility] [place] Repository 10/09/2017/10/13/19 [id number] Ambulatory [address] Repository PAYERS PAYERS ENCOUNTER GUARANTOR PAYER SUBSCRIBER SOURCE 09/30/2018 MICHAEL Y Primary MICHAEL Y [facility] PITTMANDOB: Insurance:MEDICARE A PITTMANDOB: Health System W AND BPolicy Number: [id number] Repository PROSPECT [id number] [place], [place] Date: [address]Znk: () 09/30/2018 Secondary MICHAEL Y [facility] Insurance:ANTHEM BCBS PITTMANDOB: [facility]: [id number] Repository [id number] Date: 09/27/2018 MICHAEL Y Primary MICHAEL Y [place] [id number] [address] Insurance:MEDICARE PITTMANDOB: [facility] PROSPECT PART A [facility] [id number] Number: Repository [id number]: 330 [id number] [phone] (HP) Date:2018-09-27 09/27/2018 Secondary MICHAEL Y [place] Insurance:ANTHEMPolic PITTMANDOB: Community y Number: [id number] [facility] [id number] Repository Date:3938-34-96WC [address] [place] [address] 66894YN: 09/27/2018 Tertiary NOT GIVENUNK [place] Insurance:SELF PAY [facility] Hospital Number: Effective Repository Date:2018-09-27 09/27/2018 MICHAEL Y Primary MICHAEL Y [place] [id number] Insurance:MEDICARE PITTMANDOB: Community PROSPECT PART A [facility] [id number] Number: Repository 46[address]Ysi: 330 [id number] [phone] (HP) Date:2018-09-27 09/27/2018 Secondary MICHAEL Y [place] Insurance:ANTHEMPolic PITTMANDOB: Community y Number: [id number] Hospital [id number] Repository Date:1547-53-81KN [id number] [place] [address] 65283RD: 09/27/2018 Tertiary NOT GIVENUNK [place] Insurance:SELF PAY [facility] Number: Effective Repository Date:2018-09-27 09/27/2018 MICHAEL Y Primary MICHAEL Y [place] [id number] Insurance:MEDICARE PITTMANDOB: Community PROSPECT PART A [facility] [id number] [place] Number: Repository [id number]: 330 [id number] [phone] (HP) Date:2018-09-27 09/27/2018 Secondary MICHAEL Y [place] Insurance:ANTHEMPolic PITTMANDOB: Community y Number: [id number] [id number] Repository Date:4285-52-34MS [address] [place] [address] 02701AF: 09/27/2018 Tertiary NOT GIVENUNK [place] Insurance:SELF PAY [facility] Number: Effective Repository Date:2018-09-27 09/27/2018 MICHAEL Y Primary MICHAEL Y [place] [id number] Insurance:MEDICARE PITTMANDOB: Community PROSPECT PART A [facility] [id number] [place] Number: Repository [address]Bgi: 330 [id number] [phone] () Date:2018-09-27 09/27/2018 Secondary MICHAEL Y [place] Insurance:ANTHEMPolic PITTMANDOB: Community y Number: [id number] [id number] Repository Date:0633-30-26SN [address] [place] [address] 34841PL: 09/27/2018 Tertiary NOT GIVENUNK [place] Insurance:SELF PAY [facility] Number: Effective Repository Date:2018-09-27 09/27/2018 MICHAEL Y Primary MICHAEL Y Priti [id number] W Insurance:MEDICARE PITTMANDOB: Community PROSPECT PART A [id number] [place] Number[facility] Repository [id number]: 330 [id number] [phone] (HP) Date:2018-09-27 09/27/2018 Secondary MICHAEL Y [place] Insurance:ANTHEMPolic PITTMANDOB: Community y Number: [id number] Hospital [id number] Repository Date:4257-54-17JW [address], [place] [address]LO: 09/27/2018 Tertiary NOT GIVENUNK [place] Insurance:SELF PAY [facility] Hospital Number: Effective Repository Date:2018-09-27 09/27/2018 MICHAEL Y Primary MICHAEL Y [place] [id number] W Insurance:MEDICARE PITTMANDOB: Community PROSPECT PART A [facility] [id number] Repository [address]Xoo: 330 [id number] [phone] () Date:2018-09-27 09/27/2018 Secondary MICHAEL Y [place] Insurance:ANTHEMPolic PITTMANDOB: Community y Number: [id number] Hospital [id number] Repository Date:3680-68-35JZ [address], [place] [address]AC: 09/27/2018 Tertiary NOT GIVENUNK [place] Insurance:SELF PAY [facility] Number: Effective Repository Date:2018-09-27 09/27/2018 MICHAEL Y Primary MICHAEL Y [place] [id number] W Insurance:MEDICARE PITTMANDOB: Community PROSPECT PART A [facility] [id number] Number: Repository [id number]: 330 [id number] [phone] () Date:2018-09-27 09/27/2018 Secondary MICHAEL Y [place] Insurance:ANTHEMPolic PITTMANDOB: Community y Number: [id number] Hospital [id number] Repository Date:6801-99-46KJ [address], [place] [address]YO: 09/27/2018 Tertiary NOT GIVENUNK [place] Insurance:SELF PAY [facility] Number: Effective Repository Date:2018-09-27 09/27/2018 MICHAEL Y Primary MICHAEL Y Priti [id number] W Insurance:MEDICARE PITTMANDOB: Community PROSPECT PART A [facility] [id number] Number: Repository [address]Kbj: 330 [id number] [phone] () Date:2018-09-27 09/27/2018 Secondary MICHAEL Y Priti Insurance:ANTHEMPolic PITTMANDOB: Community y Number: [id number] [place] [address] [id number] Repository Date:8762-21-41[address] [place] [address]LC: 09/27/2018 Tertiary NOT GIVENUNK [place] Insurance:SELF PAY [facility] Number: Effective Repository Date:2018-09-27 09/27/2018 MICHAEL Y Primary MICHAEL Y [place] [id number] W Insurance:MEDICARE PITTMANDOB: Community PROSPECT PART A [facility] [id number] [place] [address] [place] Number: Repository [address]Qsd: 330 [id number] [phone] () Date:2018-09-27 09/27/2018 Secondary MICHAEL Y Priti Insurance:ANTHEMPolic PITTMANDOB: Community y Number: [id number] Hospital [id number] Repository Date:5098-27-19MQ [address], [place] [address]KD: 09/27/2018 Tertiary NOT GIVENUNK [place] Insurance:SELF PAY [facility] Number: Effective Repository Date:2018-09-27 09/27/2018 MICHAEL Y Primary MICHAEL Y Priti [id number] W Insurance:MEDICARE PITTMANDOB: Community PROSPECT PART A [facility] [id number] Number[place] Repository [id number]: 330 [id number] [phone] () Date:2018-09-27 09/27/2018 Secondary MICHAEL Y Priti Insurance:ANTHEMPolic PITTMANDOB: Community y Number: [id number] [place] [address] [id number] Repository Date:5385-95-83CT [address]WBTPJV, [place] [address]OL: 09/27/2018 Tertiary NOT GIVENUNK Priti Insurance:SELF PAY [facility] Number: Effective Repository Date:2018-09-27 09/13/2018 MICHAEL Y Primary MICHAEL Y [facility] PITTMANDOB: Insurance:MEDICARE A PITTMANDOB: Health System W AND BPolicy Number: [id number] Repository PROSPECT [id number] [place] Date: [address]Zdy: (HP) 09/13/2018 Secondary MICHAEL Y [facility] Insurance:ANTHEM BCBS PITTMANDOB: Health System FEP PPOPolicy Number: [id number] Repository [id number] Date: 08/23/2018 MICHAEL Y Primary MICHAEL Y [facility] PITTMANDOB: Insurance:MEDICARE A PITTMANDOB: Health System W AND BPolicy Number: [id number] Repository PROSPECT [id number] [place] Date: [address]Nmg: (HP) 08/23/2018 Secondary MICHAEL Y [facility] Insurance:ANTHEM BCBS PITTMANDOB: Health System FEP PPOPolicy Number: [id number] Repository [id number] Date: 06/21/2018 MICHAEL Y Primary MICHAEL Y [facility] PITTMANDOB: Insurance:MEDICARE A PITTMANDOB: Health System W AND BPolicy Number: [id number] Repository PROSPECT [id number] [place] Date: [address]Txh: (HP) 06/21/2018 Secondary MICHAEL Y [facility] Insurance:ANTHEM BCBS PITTMANDOB: Health System FEP PPOPolicy Number: [id number] Repository [id number] Date: 06/21/2018 MICHAEL Y Primary MICHAEL Y [facility] PITTMANDOB: Insurance:MEDICARE A PITTMANDOB: Health System W AND BPolicy Number: [id number] Repository PROSPECT [id number] [place] Date: [address]Lwv: (HP) 06/21/2018 Secondary MICHAEL Y [facility] Insurance:ANTHEM BCBS PITTMANDOB: Health System FEP PPOPolicy Number: [id number] Repository [id number] Date: 06/21/2018 MICHAEL Y Primary MICHAEL Y [facility] PITTMANDOB: Insurance:MEDICARE A PITTMANDOB: Health System W AND BPolicy Number: [id number] Repository PROSPECT [id number] [place] Date: [address]Dxm: (HP) 06/21/2018 Secondary MICHAEL Y [facility] Insurance:ANTHEM BCBS PITTMANDOB: Health System FEP PPOPolicy Number: [id number] Repository [id number] Date: 06/08/2018 MICHAEL Y Primary MICHAEL Y [facility] PITTMANDOB: Insurance:MEDICARE A PITTMANDOB: Health System W AND BPolicy Number: [id number] Repository PROSPECT [id number] [place] Date: [address]Bdr: (HP) 06/08/2018 Secondary MICHAEL Y [facility] Insurance:ANTHEM BCBS PITTMANDOB: Health System FEP PPOPolicy Number: [id number] Repository [id number] Date: 05/12/2018 MICHAEL Y Primary MICHAEL Y [facility] PITTMANDOB: Insurance:MEDICARE A PITTMANDOB: Health System W AND BPolicy Number: [id number] Repository PROSPECT [id number] [place] Date: [address]Tti: (HP) 05/12/2018 Secondary MICHAEL Y [facility] Insurance:ANTHEM BCBS PITTMANDOB: Health System FEP PPOPolicy Number: [id number] Repository [id number] Date: 03/03/2018 Michael Y Primary Michael Y [place] [id number] [address] Insurance:MEDICARE PittmanDOB: Community [place] [facility] [id number] [place] Number: Repository [id number]: [phone] [id number] [phone] (HP) Date:2017-12-10 03/03/2018 Secondary MICHAEL Y Priti Insurance:ANTHEMPolic PITTMANDOB: Community y Number: [id number] [facility] [id number] Repository Date:4819-75-72EX [address] [place] [address]YA: 03/03/2018 Tertiary NOT GIVENUNK [place] Insurance:SELF PAY [facility] Effective Repository Date:2017-12-10 12/22/2017 MICHAEL Y Primary MICHAEL Y [facility] PITTMANDOB: Insurance:MEDICARE A PITTMANDOB: Health System W AND BPolicy Number: [id number] Repository PROSPECT [id number] [place] Date: [address]Yfz: (HP) 12/22/2017 Secondary MICHAEL Y [facility] Insurance:ANTHEM BCBS PITTMANDOB: Health System FEP PPOPolicy Number: [id number] Repository [id number] Date:
== END 2018-10-01 14:36 | disposition home or self-care (01) | DRG 392 ==
LOC: ED 15:58 → MS3 18:56
PROVIDERS: Admitting Provider Hospitalist; Emergency Provider Emergency Medicine; Family Provider Internal Medicine; PCP Internal Medicine; Referring Provider Hospitalist; Visit Provider Student in an Organized Health Care Education/Training Program
DX: K57.20 Diverticulitis of large intestine with perforation and abscess without bleeding (principal); M35.00 Sjogren syndrome, unspecified; M45.9 Ankylosing spondylitis of unspecified sites in spine; M81.0 Age-related osteoporosis without current pathological fracture; M19.90 Unspecified osteoarthritis, unspecified site; G25.81 Restless legs syndrome; Z92.3 Personal history of irradiation; E87.6 Hypokalemia; Z85.840 Personal history of malignant neoplasm of eye; F41.8 Other specified anxiety disorders; K52.832 Lymphocytic colitis
CPT/HCPCS: 36415; 71046; 74177; 80048; 80053; 81001; 83605; 83690; 83735; 84484; 85025; 87040; 87077; 87086; 87088; 87149; 87186; 93005; 97161; 97165; 99284; J7030; J7040; Q9967; A4216; J0744; J2405

== ENCOUNTER → 2018-10-07 13:28 | Outpatient (CLI) | payer MEDICARE, BC, SELFPAY ==
[2018-09-27 19:06] VITALS: BMI 21.6
--- NOTE | 2018-10-07 13:35 | CT_ITS ---
STUDY: CT ABDOMEN AND PELVIS WITH CONTRAST REASON FOR: Female, 82 years old. Diverticulitis, follow-up. RADIATION DOSAGE (If Supplied By Facility): CTDIvol = ( 9.71 ) mGy, DLP = ( 510.07 ) mGycm TECHNIQUE: Transaxial images were obtained from the dome of the diaphragm to the symphysis pubis with oral contrast. 80ML ml of Isovue 300 contrast was administered. Sagittal and coronal images were reconstructed. Individualized dose optimization techniques were used for this CT. COMPARISON: CT abdomen and pelvis with IV contrast September 27, 2018. FINDINGS: The visualized lung bases are unremarkable. The visualized portions of the heart are within normal limits. Stable occasional focal calcification in the liver. Stable rounded 10 mm focus of diminished enhancement in the anterior left lobe of liver near the falciform ligament is consistent with a focus of fatty infiltration. The patent portal vein diameter is 12.5 mm. There are surgical clips in the gallbladder fossa consistent with a prior cholecystectomy. 11 mm diameter ectasia of the proximal common bile duct and mild central intrahepatic bile duct ectasia is improved from previous study. There are multiple benign calcified granulomata of the spleen. Normal pancreas. Normal bilateral adrenal glands. Stable rounded 10 mm cortical cyst in the anterolateral upper mid pole of the right kidney. Stable 1.8 cm cortical cyst in the lateral midpole of the left kidney. No hydronephrosis. Normal visualized stomach. Normal small intestine. Mild to moderate fecal load throughout the colon. There are multiple colonic diverticula consistent with diverticulosis. There is non-visualization of the appendix. There is diffuse atherosclerotic calcification of the abdominal aorta, without a demonstrated aneurysm. Normal inferior vena cava. Normal retroperitoneum. Normal urinary bladder. There is absence of the uterus consistent with a prior hysterectomy. Normal abdominal wall. There is demineralization of the osseous structures. There are diffuse degenerative changes of the visualized spine. There is well corticated mild right-sided depression of the superior L1 vertebral endplate as well as left sided depression of the L2 and L3 vertebral endplates. There is some leftward subluxation of L4 on L5 and grade 1 anterolisthesis of L5 on S1 and mild degenerative arthrosis of the bilateral sacroiliac joints. CT/Abdomen/Pelvis WITH Contrast IMPRESSION: 1. Colonic diverticulosis without sign of acute diverticulitis. No sign of bowel obstruction. The appendix is not visualized. 2. Prior cholecystectomy. Intra and extra hepatic bile duct ectasias improved from prior study. 3. Calcified granulomata are again seen in the liver and spleen. Stable focal fatty infiltration in the left hepatic lobe. 4. Stable bilateral renal cortical cysts. No hydronephrosis. 5. Aortoiliac atherosclerotic calcific plaquing again noted. No demonstrated aortic aneurysm. 6. Prior hysterectomy. 7. Demineralization of the osseous structures. Stable depressions in the superior L1-L3 vertebral endplates, leftward subluxation of L4 on L5, grade 1 anterolisthesis of L5 on S1, and additional degenerative changes of the spine, as noted. Electronically Signed: Milan Simental MD at 17:16 EST , Service support ,
== END ==
PROVIDERS: Family Provider Internal Medicine; PCP Internal Medicine; Referring Provider Surgery; Visit Provider Surgery
DX: K57.92 Diverticulitis of intestine, part unspecified, without perforation or abscess without bleeding (principal)
CPT/HCPCS: 74177; Q9967

== ENCOUNTER → 2018-10-27 14:48 | Outpatient (CLI) | payer MEDICARE, BC, SELFPAY ==
[2018-10-15 14:00] VITALS: BMI 21.6
[2018-10-27 17:52] LABS: AST(SGOT) 27 U/L (15-37); Alanine Aminotransfer ALT/SGPT 25 U/L (13-56); Albumin, Serum 3.9 g/dL (3.2-5.0); Alkaline Phosphatase 101 U/L (45-117); Bilirubin, Direct 0.08 mg/dL (0.00-0.30); GGTP 16 U/L (5-55); Globulin 3.8 g/dL (2.2-4.2); Lipase 129 U/L (73-393); Protein, Total 7.7 g/dL (6.4-8.2)
== END ==
PROVIDERS: Family Provider Internal Medicine; PCP Internal Medicine; Referring Provider Internal Medicine Gastroenterology; Visit Provider Internal Medicine Gastroenterology
DX: R10.9 Unspecified abdominal pain (principal); R11.0 Nausea
CPT/HCPCS: 36415; 80076; 82977; 83690

== ENCOUNTER → 2019-05-05 08:17 | Outpatient (CLI) | payer MEDICARE, BC, SELFPAY ==
[2018-10-15 14:00] VITALS: BMI 21.6
--- NOTE | 2019-05-05 08:19 | RAD_ITS ---
STUDY: X-RAY - ESOPHAGUS (BARIUM SWALLOW) WITH FLUOROSCOPY REASON FOR EXAM: Female, 83 years old. Dysphasia. TECHNIQUE: 21 view(s) of the esophagus were obtained following swallowing of barium. FLUOROSCOPY TIME (if supplied): (0:41) minutes/seconds COMPARISON: None. FINDINGS: There is no demonstrated esophageal foreign body. There is evidence of tertiary contractions of the mid and distal esophagus. Normal gastroesophageal junction, without a demonstrated hiatal hernia. The patient ingested a 12 mm tablet of barium. The tablet is trapped at the gastroesophageal junction. There is atherosclerotic calcification of the aortic arch with tortuosity of the descending aorta. Normal visualized pulmonary parenchyma. There are diffuse degenerative changes of the visualized thoracic spine. 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 The ingested 12 mm tablet of barium is trapped at the gastroesophageal junction. Electronically Signed: John Peter, at 14:01 EDT , Service support ,
== END ==
PROVIDERS: Family Provider Internal Medicine; PCP Internal Medicine; Referring Provider Otolaryngology; Visit Provider Otolaryngology
DX: R13.10 Dysphagia, unspecified (principal)
CPT/HCPCS: 74220

== ENCOUNTER 2019-06-25 10:00 | Emergency (ER) | payer MEDICARE, BC, SELFPAY ==
[2018-10-15 14:00] VITALS: BMI 21.6
[2019-06-25 10:05] VITALS: BP 134/77; PULSE 889; RESP 17; TEMP 36.2; O2SAT 98; BMI 22.3
--- NOTE | 2019-06-25 10:14 | RAD_ITS ---
STUDY: X-RAY - RIGHT WRIST REASON FOR EXAM: Female, 83 years old. Patient fell week ago. Thumb pain. TECHNIQUE: 3 view(s) of the wrist were obtained. COMPARISON: None. FINDINGS: Normal visualized distal radius and ulna. Normal radiocarpal articulation. Normal distal radioulnar articulation. There is demineralization of the carpal bones. There is severe degenerative arthrosis of the scaphoid trapezium joint. There is degenerative arthrosis of the carpometacarpal articulation of the thumb. Normal second through fifth carpometacarpal articulations. Normal visualized metacarpal bones. The soft tissue structures are unremarkable. RAD/Wrist min 3 Views IMPRESSION: Degenerative arthrosis of the wrist. No demonstrated acute fracture. Electronically Signed: Joshua Mcintosh MD at 10:51 EDT Tel , Service support ,
--- NOTE | 2019-06-25 10:14 | RAD_ITS ---
STUDY: X-RAY - RIGHT HAND REASON FOR EXAM: Female, 83 years old. Fall one week ago, pain TECHNIQUE: 3 view(s) of the hand. COMPARISON: None. FINDINGS: Normal radiocarpal articulation. Normal distal radioulnar joint. Punctate calcific density distal to the ulnar styloid process compatible with old injury. There is diffuse demineralization of the carpal bones. There is degenerative joint disease of the scaphotrapezium / trapezoid articulation. The remainder of the carpal articulations are normal. There is degenerative arthrosis of the carpometacarpal articulation of the thumb with slight lateral subluxation of the first metacarpus. The narrowed appearance of the second carpometacarpal joint with erosion of the scaphoid trapezium joint space. The metacarpals are demineralized. Normal metacarpophalangeal joint of the thumb. There is degenerative arthrosis of the interphalangeal joint of the thumb with articular joint space narrowing. Normal proximal and distal phalanges of the thumb. Normal metacarpophalangeal joints of the second through fifth fingers. There is diffuse articular joint space narrowing of the proximal and distal interphalangeal joints of the second through fifth fingers, but without erosive changes or periarticular soft tissue swelling. In particular there is degenerative change at the distal interphalangeal joint of the second third fourth digits with slight angulation. An acute fracture line is not definitively seen. There is flexion deformity at the second digit distal interphalangeal joint. There is mild soft tissue edema about the second digit. RAD/Hand Min 3 Views IMPRESSION: Advanced osteoarthritis of the hand. Soft tissue edema flexion arthritic deformity at the second digit distal interphalangeal joint. No visualized acute fracture. Electronically Signed: Sherin Guthrie MD at 10:50 EDT Tel , Service support ,
--- NOTE | 2019-06-25 11:26 | ED.VIS.GEN ---
History of Present Illness Chief Complaint: Upper Extremity Injury Informant: Patient Onset: Days Context: Gradual Onset Timing: Continuous Current Severity: Moderate Maximum Severity: Moderate Narrative: Patient presents with right wrist and thumb injury. Patient has a history of rather significant arthritis with contractures in her joints. She had a mechanical fall few days ago. She landed on an outstretched right wrist. She states she had some pain and swelling since. States most the pain is at the base of her thumb. She is been wearing a wrist splint with little improvement. She did not strike her head. She denies loss of consciousness. Prior similar symptoms: No Recent Illness/Hospitalization: No Past Medical History - Allergies and Home Meds Allergies/Adverse Reactions: Allergies difluprednate [From Durezol] Allergy (Verified 06/25/19 10:03) Other methylprednisolone Allergy (Verified 06/25/19 10:03) Rash Penicillins Allergy (Verified 06/25/19 10:03) Unknown prednisolone Allergy (Verified 06/25/19 10:03) Swelling citalopram Adverse Reaction (Verified 06/25/19 10:03) Diarrhea codeine Adverse Reaction (Verified 06/25/19 10:03) Nausea dexamethasone Adverse Reaction (Verified 06/25/19 10:04) Other SORE MOUTH duloxetine HCl [From Cymbalta] Adverse Reaction (Verified 06/25/19 10:03) Diarrhea Iodinated Contrast Media [Iodinated Contrast- Oral and IV Dye] Adverse Reaction (Verified 06/25/19 10:03) unknown lamotrigine [From Lamictal] Adverse Reaction (Verified 06/25/19 10:03) DRUGGED FEELING metoclopramide HCl [From Reglan] Adverse Reaction (Verified 06/25/19 10:03) INVOLUNTARY BODY MOVEMENTS mirabegron [From Myrbetriq] Adverse Reaction (Verified 06/25/19 10:03) Other BLADDER INFLAMMATION AND SORE MOUTH promethazine HCl [From Phenergan] Adverse Reaction (Verified 06/25/19 10:03) INVOLUNTARY BODY MOVEMENTS sertraline HCl [From Zoloft] Adverse Reaction (Verified 06/25/19 10:03) Diarrhea sulfamethoxazole [From Bactrim] Adverse Reaction (Verified 06/25/19 10:03) FELT WEIRD, HEAD NUMB, FELT DRUGGED, SHAKEY, NAUSEATED trimethoprim [From Bactrim] Adverse Reaction (Verified 06/25/19 10:03) FELT WEIRD, HEAD NUMB, FELT DRUGGED, SHAKEY, NAUSEATED Primary Care Physician: Leatha Kincaid MD [Primary Care Provider] - Prior records reviewed: Yes Past Medical History: - Surgical History: cholecystectomy, hysterectomy - bladder and rectal repair., - - tonsillectomy. chorid melanoma surgery of left eye Smoking Status: Never smoker - Family History Maternal Family History: Family History (Last Updated 10/15/18 @ 13:56 by Missy Banda) Other Arthritis Asthma Breast cancer CVA (cerebral vascular accident) Diabetes Heart disease Hyperlipidemia Hypertension Osteoporosis Ulcer auto immune disease Family History: Reports: No pertinent history Paternal Family History: Family History (Last Updated 10/15/18 @ 13:56 by Missy Banda) Other Arthritis Asthma Breast cancer CVA (cerebral vascular accident) Diabetes Heart disease Hyperlipidemia Hypertension Osteoporosis Ulcer auto immune disease Family History: Reports: No pertinent history Review of Systems General: Denies: Chills, Fever, Sweats Eyes: Denies: Visual changes - bilaterally, Diplopia ENT: Denies: Rhinorrhea, Sore throat Cardiovascular: Denies: Chest pain, Palpitations Respiratory: Denies: Dyspnea, Cough, Dyspnea on exertion Gastrointestinal: Denies: Abdominal pain, Nausea, Vomiting, Diarrhea, Melena, Hematochezia Genitourinary: Denies: Dysuria, Hematuria, Frequency Musculoskeletal: Denies: Back pain, Extremity Pain Skin: Denies: Rash, Wounds Neurological: Denies: Headache, Weakness, Numbness Physical Exam Vital Signs/Narrative: Vital Signs Temp Pulse Resp BP Pulse Ox 06/25/19 10:05 97.1 F L 889 H 17 134/77 H 98 Inital Vital Signs reviewed: Yes General: Well nourished, Well developed, No Acute Distress Head: Normocephalic, Atraumatic Eyes: Perrl, EOMI ENT: Moist mucous membranes, No rhinorrhea Neck: Supple, Nontender Cardiovascular: Regular rate, Regular rhythm, No murmurs Respiratory: No distress, CTA bilaterally, Chest nontender Abdomen: Soft, Nontender, Nondistended, Normal bowel sounds Back: Nontender, Normal Inspection Extremities: No edema, Tenderness - Tenderness over the base of the thumb. Normal pulses. Skin intact. Neurologic function normal. Skin: Normal color, No rash Neurological: Alert, Oriented x3, Cranial nerves II-XII grossly intact, Normal Strength, Normal Sensation Psychological: Normal affect, Normal Mood Diagnostic/Tx/Re-eval Clinical Impression(s) from Imaging Studies Hand X-Ray 06/25/19 10:14 IMPRESSION: Advanced osteoarthritis of the hand. Soft tissue edema flexion arthritic deformity at the second digit distal interphalangeal joint. No visualized acute fracture. Electronically Signed: Sherin Guthrie MD at 10:50 EDT Tel , Service support , Wrist X-Ray 06/25/19 10:14 IMPRESSION: Degenerative arthrosis of the wrist. No demonstrated acute fracture. Electronically Signed: Joshua Mcintosh MD at 10:51 EDT Tel , Service support , - Medical Decision Making Patient presents after mechanical fall. Most of the pain is at the CMC joint of her first metacarpal. X-rays do not show evidence of acute fracture but does show rather advanced arthritis there would be attempted a thumb spica splint, but the patient did have significant pain. She is placed in an Amado wrap instead. She will continue anti-inflammatories and elevation. She will be discharged home. Discharge 1. Right thumb contusion ED Disposition - Plan for ED Patient: Disposition: Home or Assisted Living Instructions: Sprain Finger Referrals: Leatha Kincaid MD [Primary Care Provider] -
== END 2019-06-25 11:49 | disposition home or self-care (01) ==
LOC: ED 10:32
PROVIDERS: Emergency Provider Emergency Medicine; Family Provider Internal Medicine; PCP Internal Medicine
DX: S60.011A Contusion of right thumb without damage to nail, initial encounter (principal); W19.XXXA Unspecified fall, initial encounter; Y93.9 Activity, unspecified; Y92.9 Unspecified place or not applicable; Y99.9 Unspecified external cause status; M19.041 Primary osteoarthritis, right hand; M19.031 Primary osteoarthritis, right wrist; Z79.82 Long term (current) use of aspirin; Z79.899 Other long term (current) drug therapy; Z88.0 Allergy status to penicillin; Z88.1 Allergy status to other antibiotic agents; Z88.2 Allergy status to sulfonamides; Z88.5 Allergy status to narcotic agent; Z88.8 Allergy status to other drugs, medicaments and biological substances; Z90.710 Acquired absence of both cervix and uterus; Z90.49 Acquired absence of other specified parts of digestive tract
CPT/HCPCS: 73110; 73130; 99282

== ENCOUNTER → 2019-07-25 11:15 | Outpatient (CLI) | payer MEDICARE, BC, SELFPAY ==
[2019-06-25 10:05] VITALS: BMI 22.3
--- NOTE | 2019-07-25 11:41 | RAD_ITS ---
STUDY: X-RAY - THORACIC SPINE REASON FOR EXAM: Female, 83 years old. Pain. TECHNIQUE: 3 view(s) of the thoracic spine were obtained. COMPARISON: None. FINDINGS: There is an increase in the normal thoracic kyphosis. There is mild scoliosis of thoracolumbar spine, convexity to the right. There is demineralization of the thoracic spine with endplate spondylosis. There is mild to moderate compression fracture of the proximal T9. There is multilevel disc space narrowing of the thoracic spine. The soft tissue structures are unremarkable. RAD/Thoracic Spine 2 Views IMPRESSION: Diffuse osteopenia along with degenerative disease as described above. Mild to moderate compression fracture of approximately T9 vertebral body. Electronically Signed: Nila Marin MD at 1:58 EST , Service support ,
--- NOTE | 2019-07-25 11:41 | RAD_ITS ---
STUDY: X-RAY - LUMBAR SPINE REASON FOR EXAM: Female, 83 years old. Back pain. TECHNIQUE: 3 view(s) of the lumbar spine were obtained. COMPARISON: None FINDINGS: Normal lumbar lordosis. There is mild scoliosis of the lower lumbar spine, convexity to the left. There is grade 1 anterolisthesis of L4 on L5 (0.9 cm). There is mild anterolisthesis of L3 on L4 (3.4 mm). There is diffuse demineralization with multi-level endplate spondylosis. There is multi-level degenerative disc disease with multi-level disc space narrowing. There is mild compression fracture of L1. Multilevel bilateral facet hypertrophic changes noted. There is atherosclerotic calcification of the abdominal aorta without a demonstrated aneurysm. RAD/Lumbar Spine 2 or 3 Views IMPRESSION: Diffuse osteopenia along with multilevel spondylosis/degenerative disease. Grade 1 anterior listhesis of L4 on L5 and of L3 on L4. Mild scoliosis. Electronically Signed: Nila Marin MD at 2:00 EST , Service support ,
[2019-07-25 12:11] LABS: Amphetamine Urine VISTA NEGATIVE (<1000 ng/mL); Barbiturate Urine VISTA NEGATIVE (< 200 ng/mL); Benzodiazepine Urine VISTA NEGATIVE (< 200 ng/mL); Cocaine Urine VISTA NEGATIVE (< 300 ng/mL); Ecstacy Urine VISTA NEGATIVE (< 500 ng/mL); Methadone Urine VISTA NEGATIVE (< 300 ng/mL); PCP Urine VISTA NEGATIVE (< 25 ng/mL); THC Urine VISTA NEGATIVE (< 50 ng/mL); Vista UDS pH Range 7
== END ==
PROVIDERS: Family Provider Internal Medicine; PCP Internal Medicine; Referring Provider Anesthesiology Pain Medicine; Visit Provider Anesthesiology Pain Medicine
DX: M54.9 Dorsalgia, unspecified (principal); F11.20 Opioid dependence, uncomplicated
CPT/HCPCS: 72070; 72100; 80307

== ENCOUNTER → 2020-03-28 10:26 | Outpatient (CLI) | payer MEDICARE, BC, SELFPAY ==
[2020-03-28 12:18] LABS: Amphetamine Urine VISTA NEGATIVE (<1000 ng/mL); Barbiturate Urine VISTA POSITIVE (< 200 ng/mL); Benzodiazepine Urine VISTA NEGATIVE (< 200 ng/mL); Cocaine Urine VISTA NEGATIVE (< 300 ng/mL); Ecstacy Urine VISTA NEGATIVE (< 500 ng/mL); Methadone Urine VISTA NEGATIVE (< 300 ng/mL); PCP Urine VISTA NEGATIVE (< 25 ng/mL); THC Urine VISTA NEGATIVE (< 50 ng/mL); Vista UDS pH Range 7
== END ==
PROVIDERS: PCP Internal Medicine; Referring Provider Anesthesiology Pain Medicine; Visit Provider Anesthesiology Pain Medicine
DX: F11.20 Opioid dependence, uncomplicated (principal)
CPT/HCPCS: 80307

== ENCOUNTER → 2020-04-19 10:30 | Outpatient (CLI) | payer MEDICARE, BC, SELFPAY ==
[2020-04-19 12:32] LABS: Hematocrit 43.5 % (37-47); Hemoglobin 13.6 g/dL (12.0-15.0); Mean Corp Hgb Conc 31.3 g/dL (32-36); Mean Corpuscular Hgb 28.2 pg (27.0-32.0); Mean Corpuscular Volume 90.1 fL (81-99); Mean Platelet Vol. 11.1 fl (6.2-12.0); Platelet Count 286 K/mm3 (150-450); RBC Distribution Width CV 13.4 % (11.6-14.6); Red Blood Count 4.83 M/mm3 (4.2-5.4); White Blood Count 7.6 K/mm3 (4.4-11.0)
[2020-04-19 12:44] LABS: Anion Gap 6 (5-15); BUN 15 mg/dL (7-18); BUN/Creat Ratio 19.5 RATIO (10-20); Calcium,Total 8.9 mg/dL (8.5-10.1); Chloride 100 mmol/L (98-107); Creatinine, Serum 0.77 mg/dL (0.55-1.02); EST Glomerular Filtration Rate 76 mL/min (>60); Est Glom Filt Rate - Afr Amer 92 mL/min (>60); Glucose 63 mg/dL (74-106); Potassium 3.7 mmol/L (3.5-5.1); Sodium Level 138 mmol/L (136-145)
== END ==
PROVIDERS: PCP Internal Medicine; Referring Provider Urology; Visit Provider Urology
DX: N39.0 Urinary tract infection, site not specified (principal)
CPT/HCPCS: 36415; 80048; 85027

== ENCOUNTER → 2020-04-25 12:11 | Outpatient (CLI) | payer MEDICARE, BC, SELFPAY ==
[2020-04-25 14:42] LABS: Color, Urine Yellow (Yellow); Glucose, Dipstick Normal (Normal); Ketone-Dipstick 5 mg/dl (Negative); Leukocyte Esterase-Dipstick 25 /ul (Negative); Nitrite-Dipstick Negative (Negative); Occult Blood-Urine 25 /ul (Negative); Protein-Dipstick Negative (Negative); Urine Bilirubin Dipstick Negative (Negative); Urine Clarity Sl. Cloudy (Clear); Urine Urobilinogen Normal (Normal)
== END ==
PROVIDERS: PCP Internal Medicine; Referring Provider Urology; Visit Provider Urology
DX: N39.0 Urinary tract infection, site not specified (principal)
CPT/HCPCS: 81002; 87086; 87088

== ENCOUNTER 2021-08-15 17:01 | Observation (INO) | payer MEDICARE, BC, SELFPAY ==
[2021-08-15] VITALS (10 sets, daily range): BP systolic 122–163; BP diastolic 71–97; PULSE 76–98; RESP 12–22; TEMP 35.8–36.6; O2SAT 93–100; BMI 23.6; BMI 23.5
[2021-08-15 18:02] LABS: Bacteria 0 SEEN /hpf (None Seen); Mucous, Urine 0 SEEN /hpf (<or=2+); Red Blood Cells-Urine 0 SEEN /hpf (0-5); Squamous Epithelial Cells - UA 0 SEEN /hpf (5-10); White Blood Cells 0 SEEN /hpf (0-5)
[2021-08-15 18:04] LABS: Color, Urine Yellow (Yellow); Glucose, Dipstick Normal (Normal); Ketone-Dipstick Negative (Negative); Leukocyte Esterase-Dipstick Negative /ul (Negative); Nitrite-Dipstick Negative (Negative); Occult Blood-Urine 10 /ul (Negative); Protein-Dipstick Negative (Negative); Urine Bilirubin Dipstick Negative (Negative); Urine Clarity Clear (Clear); Urine Urobilinogen Normal (Normal); Urine pH 6.5 (5.0 - 8.0)
--- NOTE | 2021-08-15 18:26 | EKG12_ITS ---
Test Reason : WEAKNESS Blood Pressure : / mmHG Vent. Rate : 085 BPM Atrial Rate : 085 BPM P-R Int : 124 ms QRS Dur : 088 ms QT Int : 372 ms P-R-T Axes : 043 -47 032 degrees QTc Int : 442 ms Normal sinus rhythm Left anterior fascicular block Abnormal ECG Confirmed by MAURO SOTO, RIGO ([id number]), industrial editor MARCY ORTEGA ([id number]) on 08/19/2021 9:36:48 AM Referred By: Confirmed By:RIGO WADE MD
--- NOTE | 2021-08-15 19:40 | RAD_ITS ---
STUDY: XR Chest 1 View 08/15/2021 8:29 PM REASON FOR EXAM: Female, 85 years old. CHEST PAIN Neuro deficit, acute, stroke suspected COMPARISON: 09/27/2018 TECHNIQUE: XR Chest 1 View FINDINGS: There is no demonstrated pleural abnormality. Enlarged heart size. Normal mediastinum. Normal anna. Prominent appearing increased interstitial lung markings. Normal visualized pulmonary arteries. There is atherosclerotic calcification of the aortic arch with tortuosity. There are diffuse degenerative changes of the visualized thoracic spine. There is degenerative osteoarthritis of the bilateral shoulders. There is no demonstrated abnormality of the visualized soft tissue structures of the upper abdomen. RAD/Chest 1 View IMPRESSION: There are no acute findings. Electronically Signed: Fausto Chin MD at 21:28 EST , Service support ,
--- NOTE | 2021-08-15 19:40 | CT_ITS ---
We are attempting to reach an attending provider to discuss findings. An addendum with communication details will be sent when the communication is complete. STUDY: CT BRAIN WITHOUT CONTRAST REASON FOR EXAM: Female, 85 years old. Neuro deficit, acute, stroke suspected Individualized dose optimization techniques were used for this CT. TECHNIQUE: Transaxial CT imaging of the brain was performed without administration of intravenous contrast material. COMPARISON: 01/20/2017 FINDINGS: There are calcifications around the carotid artery. These are noted in the cavernous carotid arteries. Normal calvarium. Normal soft tissues. There is mild cerebral atrophy with widening of the extra-axial spaces and ventricular dilatation. There are areas of decreased attenuation within the white matter tracts of the supratentorial brain, consistent with microvascular disease changes. Normal basal ganglia and thalami. Normal brainstem. There is mild cerebellar atrophy. There is no intracranial hemorrhage. There are no findings of an acute ischemic infarction. Normal visualized paranasal sinuses. ASPECTS Score for Acute Strokes: 06/16 CT/STROKE Brain/Head without Cont IMPRESSION: There are no acute findings. Chronic involutional changes of the brain. Electronically Signed: Fausto Chin MD at 20:51 EST , Service support ,
--- NOTE | 2021-08-15 19:41 | EDS_ITS ---
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 Onset Thursday. She denies double vision or blurred vision. She denies trouble with speech or swallowing. She denies paresthesia, anesthesia or motor weakness. She denies nausea or vomiting. She denies diarrhea. She denies urologic symptoms. She does report chest pressure that lasted 30 minutes. There was no radiation no associated symptoms. She denies history of coronary disease. Prior similar symptoms: Yes Recent Illness/Hospitalization: No PFSH PFS Medical History Anxiety Arthritis Atrial fibrillation Behcet's disease Bleeding ulcer Cataract Chronic GERD Colitis Crohns disease Depression Diverticulosis Exanthematous disorder Eye cancer Fibromyalgia Glossodynia History of pneumonia Hyperlipidemia lap repair bladder injury Low back pain Lymphocytic colitis Meningitis Raynaud's disease Ulcer of mouth Home Medications acetaminophen 500 mg PO Q6H PRN PRN 03/29/16 [History Last Taken 09/26/18] aspirin 81 mg PO DINNER 03/29/16 [History Last Taken 09/26/18] atorvastatin 5 mg PO QODAY 03/29/16 [History Last Taken 09/26/18] calcium citrate-vitamin D3 2 tab PO BID 03/29/16 [History Last Taken 09/27/18] cyclosporine 1 drp EACH EYE BID 03/29/16 [History Last Taken 09/27/18] docusate sodium 100 mg PO TID PRN PRN 03/29/16 [History Last Taken 09/19/16] ergocalciferol (vitamin D2) 50,000 unit PO QMONTH 03/29/16 [History Last Taken 09/07/18] flaxseed oil 1,000 mg PO DAILY 03/29/16 [History Last Taken 09/27/18] hydroxychloroquine 200 mg PO DAILYCM 03/29/16 [History Last Taken 09/26/18] melatonin 3 mg PO QHS 03/29/16 [History Last Taken 09/26/18] pilocarpine HCl 5 mg PO TID 03/29/16 [History Last Taken 09/27/18] polyethylene glycol 3350 17 gm PO DAILY PRN PRN 03/29/16 [History Last Taken 09/27/18] pramipexole 0.125 mg PO 1530,1800,2000,2200 03/29/16 [History Last Taken 0 09/26/18] oxycodone-acetaminophen 0.5 tab PO BID 09/19/16 [History Last Taken 09/26/18] Tumeric 500 mg PO DAILY 09/27/18 [History Last Taken 09/26/18] clonazepam 0.25 mg PO QHS 09/27/18 [History Last Taken 09/26/18] fluticasone propionate 2 spry NASAL DAILY 09/27/18 [History Last Taken 09/24/18] gabapentin 300 mg PO BID 09/27/18 [History Last Taken 09/26/18] magnesium oxide 500 mg PO QHS 09/27/18 [History Last Taken 09/26/18] multivitamin 1 tab PO DAILY 09/27/18 [History Last Taken 09/26/18] peg 400-propylene glycol 30 ml OP 4X/DAY 09/27/18 [History Last Taken 09/27/18] venlafaxine 150 mg PO DAILY 09/27/18 [History Last Taken 09/27/18] vitamin B complex 1 tab PO DAILY 09/27/18 [History Last Taken 09/26/18] wheat dextrin 5 ml PO DAILY 09/27/18 [History Last Taken 09/27/18] white petrolatum-mineral oil 3.5 gm OP DAILY 09/27/18 [History Last Taken 09/26/18] Lactobacill 46-B.animal-inulin 1 ea PO DAILY 06/25/19 [History Last Taken Unknown] calcium carbonate 500 mg PO PRN PRN 06/25/19 [History Last Taken Unknown] clindamycin HCl 600 mg PO X1 06/25/19 [History Last Taken Unknown] omeprazole 20 mg PO BID 06/25/19 [History Last Taken Unknown] ondansetron HCl 4 mg PO TID PRN PRN 06/25/19 [History Last Taken Unknown] Allergy/AdvReac Type Severity Reaction Status Date / Time difluprednate [From Durezol] Allergy Other Verified 08/15/21 17:03 methylprednisolone Allergy Rash Verified 08/15/21 17:03 Penicillins Allergy Unknown Verified 08/15/21 17:03 prednisolone Allergy Swelling Verified 08/15/21 17:03 citalopram AdvReac Diarrhea Verified 08/15/21 17:03 codeine AdvReac Nausea Verified 08/15/21 17:03 dexamethasone AdvReac Other Verified 08/15/21 17:03 duloxetine HCl AdvReac Diarrhea Verified 08/15/21 17:03 [From Cymbalta] Iodinated Contrast Media AdvReac unknown Verified 08/15/21 17:03 [Iodinated Contrast- Oral and IV Dye] lamotrigine [From Lamictal] AdvReac DRUGGED Verified 08/15/21 17:03 FEELING metoclopramide HCl AdvReac INVOLUNTARY Verified 08/15/21 17:03 [From Reglan] BODY MOVEMENTS mirabegron [From Myrbetriq] AdvReac Other Verified 08/15/21 17:03 promethazine HCl AdvReac INVOLUNTARY Verified 08/15/21 17:03 [From Phenergan] BODY MOVEMENTS sertraline HCl [From Zoloft] AdvReac Diarrhea Verified 08/15/21 17:03 sulfamethoxazole AdvReac FELT Verified 08/15/21 17:03 [From Bactrim] WEIRD, HEAD NUMB, FELT DRUGGED, SHAKEY, NAUSEATED trimethoprim [From Bactrim] AdvReac FELT Verified 08/15/21 17:03 WEIRD, HEAD NUMB, FELT DRUGGED, SHAKEY, NAUSEATED Family History Other Arthritis Asthma Breast cancer CVA (cerebral vascular accident) Diabetes Heart disease Hyperlipidemia Hypertension Osteoporosis Ulcer auto immune disease Surgical History H/O adenoidectomy H/O colonoscopy H/O cystoscopy H/O dilation and curettage H/O endoscopy H/O vaginal hysterectomy History of cholecystectomy History of tonsillectomy Hx of appendectomy Social History (Updated 08/15/21 @ 19:[address] Rigoberto Garcia MD) household members: none Smoking Status: Never smoker alcohol intake: never ROS ROS ED Constitutional Constitutional ED: Denies chills, fever(s), subjective or sweats Eyes Eyes: Denies blurry vision, change in vision or diplopia ENT ENT ED: Denies ear pain, rhinorrhea or sore throat Cardiovascular Cardiovascular: Reports chest pain; Denies palpitations, paroxysmal nocturnal dyspnea or racing heartbeat Respiratory/Chest Respiratory/Chest: Denies cough, dyspnea, dyspnea on exertion, paroxysmal nocturnal dyspnea or sputum Gastrointestinal Gastrointestinal: Denies abdominal pain, nausea or vomiting Genitourinary Genitourinary ED: Denies dysuria, hematuria or urinary frequency Musculoskeletal Musculoskeletal: Denies arthralgias, myalgias or neck pain Integumentary Denies rash Neurologic Neurologic: Denies headache(s), paresthesias or weakness Psychiatric Psychiatric: Denies depression Endocrine Endocrinology: Denies polydipsia, polyphagia or polyuria Hematologic/Lymphatic Hematologic/Lymphatic: Denies easy bleeding or easy bruising EXAM Physical Exam Const Vital Signs: 08/15/21 17:03 08/15/21 18:26 08/15/21 19:40 Temperature 96.4 F L Temperature Source Temporal Pulse Rate 98 89 Respiratory Rate 16 22 H Respiratory Effort Blood Pressure 163/88 H 154/89 H Blood Pressure Mean 113 110 Pulse Ox 100 96 97 Oxygen Delivery Method Room Air Room Air Room Air Oxygen Flow Rate (L/min) 08/15/21 19:44 08/15/21 19:45 08/15/21 19:52 Temperature Temperature Source Pulse Rate 87 Respiratory Rate 18 Respiratory Effort Normal Non-Labored Blood Pressure 154/89 H Blood Pressure Mean 110 Pulse Ox 96 Oxygen Delivery Method Room Air Room Air Oxygen Flow Rate (L/min) 96 08/15/21 20:10 08/15/21 20:42 08/15/21 21:16 Temperature Temperature Source Pulse Rate 82 83 80 Respiratory Rate 20 H 17 12 Respiratory Effort Blood Pressure 154/89 H 122/97 H 149/73 H Blood Pressure Mean 110 105 98 Pulse Ox 98 96 Oxygen Delivery Method Room Air Room Air Oxygen Flow Rate (L/min) Positive well nourished and well developed General Appearance ED: well developed and NAD HEENT Reports TM's clear and moist mucous membranes atraumatic Nose: other Other Details: There is no nystagmus. Tympanic Membrane ED: Yes TM's clear Eyes PERRL and EOMs intact bilaterally General Eye ED: Negative for pale conjunctiva or scleral icterus Neck no lymphadenopathy, supple and no JVD Chest Wall inspection of chest normal and palpation of chest normal Resp normal respiratory effort and clear to auscultation bilaterally Cardio no murmurs Rate: regular rate Rhythm: regular rhythm Heart Sounds: S1 normal and S2 normal GI normal to inspection, nondistended, normoactive bowel sounds, soft to palpation and no masses Palpation: Negative for hepatomegaly or splenomegaly Back/Spine no CVA tenderness Cervical Spine: Negative for cervical spine tenderness Thoracic Spine / Upper Back: Negative for thoracic spinal tenderness Lumbar Spine / Lower Back: Negative for lumbar spinal tenderness Extremity normal to inspection General Extremety ED: Negative for deformity or tenderness General Extremity: Negative for deformity Neuro oriented x3 and CN's II-XII intact bilaterally Neuro Narrative: Dysmetria on the left Sensorium / Orientation: alert Psych mental status grossly normal Skin no wounds General Skin Exam: Negative for jaundice Lesions: no lesions Rashes: no rashes STROKE Vital Signs/Narrative: Vital Signs Pulse Resp BP Pulse Ox 08/15/21 21:16 80 12 149/73 H 96 08/15/21 20:42 83 17 122/97 H 98 08/15/21 20:10 82 20 H 154/89 H 08/15/21 19:45 87 18 154/89 H 96 08/15/21 19:40 89 22 H 154/89 H 97 08/15/21 18:26 96 NIHSS Initial: 1a Level of Consciousness: 0 1b LOC Questions (Score 2 if aphasic/stupor): 0 1c LOC Commands (Only score 1st attempt): 0 2 Best Gaze (If aphasic, use reflexive mvmts.): 0 3 Visual: 0 4 Facial Palsy: 0 5 Motor Arm Right (UN = amputation/fusion): 0 5 Motor Arm Left: 0 6 Motor Leg Right: 0 7 Limb ataxia (Only + if out of proportion): 1 8 Sensory (Aphasia/stupor=0 or 1, coma=2): 0 9 Best Language: 0 10 Dysarthria (mute, coma=2, intubated=UN): 0 11 Extinction and Inattention (only scored if +): 0 Total Score: 1 MDM MDM MDM Narrative Medical decision making narrative: Concern patient had a posterior stroke. This occurred on Thursday. Patient is outside the window for thrombolytics or any intervention. Because she has chest pain will obtain EKG and troponin. Patient does have history of 3 prior TIAs. Lab Data Attestation: I reviewed the patient's lab results. Lab results narrative: CBC, UA, electrolyte panel are unremarkable. Blood sugar was slightly elevated 114. Labs: Laboratory Results - last 24 hr 08/15/21 08/15/21 08/15/21 17:44 19:56 20:15 WBC 8.5 RBC 4.83 Hgb 13.4 Hct 42.4 MCV 87.8 MCH 27.7 MCHC 31.6 L RDW Std Deviation 44.7 H RDW Coeff of Celine 14.0 Plt Count 250 MPV 10.3 Immature Gran % (Auto) 0.400 Neut % (Auto) 74.1 H Lymph % (Auto) 16.9 L [place] % (Auto) 7.7 Eos % (Auto) 0.7 Baso % (Auto) 0.2 Absolute Neuts (auto) 6.3 Absolute Lymphs (auto) 1.43 Nucleated RBC % 0 PT INR APTT Sodium Potassium Chloride Carbon Dioxide Anion Gap BUN Creatinine Estim Creat Clear Calc Est GFR (MDRD) Af Amer Est GFR (MDRD) Non-Af BUN/Creatinine Ratio Glucose Calcium Troponin I High Sens Urine Color Yellow Urine Clarity Clear Urine pH 6.5 Ur Specific [place] 1.010 Urine Protein Negative Urine Glucose (UA) Normal Urine Ketones Negative Urine Occult Blood 10 H Urine Nitrite Negative Urine Bilirubin Negative Urine Urobilinogen Normal Ur Leukocyte Esterase Negative Urine RBC 0 SEEN Urine WBC 0 SEEN Ur Squamous Epith Cells 0 SEEN Urine Bacteria 0 SEEN Urine Mucus 0 SEEN POC Glucose 116 H 08/15/21 08/15/21 20:15 20:15 WBC RBC Hgb Hct MCV MCH MCHC RDW Std Deviation RDW Coeff of [place]eline Plt Count MPV Immature Gran % (Auto) Neut % (Auto) Lymph % (Auto) [place] % (Auto) Eos % (Auto) Baso % (Auto) Absolute Neuts (auto) Absolute Lymphs (auto) Nucleated RBC % PT Cancelled INR Cancelled APTT Cancelled Sodium 142 Potassium 3.5 Chloride 106 Carbon Dioxide 30.0 Anion Gap 6 BUN 11 Creatinine 0.73 Estim Creat Clear Calc 34.46 Est GFR (MDRD) Af Amer 97 Est GFR (MDRD) Non-Af 80 BUN/Creatinine Ratio 15.0 Glucose 114 H Calcium 9.8 Troponin I High Sens 11 Urine Color Urine Clarity Urine pH Ur Specific [place] Urine Protein Urine Glucose (UA) Urine Ketones Urine Occult Blood Urine Nitrite Urine Bilirubin Urine Urobilinogen Ur Leukocyte Esterase Urine RBC Urine WBC Ur Squamous Epith Cells Urine Bacteria Urine Mucus POC Glucose Radiography Diagnostic Testing: Clinical Impression(s) from Imaging Studies Brain CT 08/15/21 19:40 IMPRESSION: There are no acute findings. Chronic involutional changes of the brain. Electronically Signed: Fausto Chin MD at 20:51 EST , Service support , ADDENDUM: 08/15/212058 IMPRESSION: There are no acute findings. Chronic involutional changes of the brain. N.B. : The above Results were Read Back by Fausto Chin MD to Rigoberto Garcia MD , , and understanding confirmed on 08/15/2021 20:52:27 (ET). Electronically Signed: Fausto Chin MD at 20:51 EST , Service support , EKG Initial EKG: Attestation: I personally reviewed and interpreted this EKG as follows: Interpretation: Sinus Rhythm (Ventricular rate 85. MA interval 124 ms. QRS duration 88 ms. QT duration 372 ms. [place] is to the left and there is evidence of a left anterior fascicular block) Stroke Documentation Questions Stroke Team Activated: No Reviewed Inclusion/Exclusion criteria: No Was Patient considered for Endovascular Intervention?: No IV Alteplase (t-PA) Administered: No No contraindications for IV Alteplase (t-PA) administration.: No Alteplase (t-PA) risks, benefits, alternative discussed: No Discharge Plan Dx/Rx/DC Orders Clinical Impression: Cerebellar dysmetria, Chest pain Disposition Disposition: Acute Care Hospital [facility]
[2021-08-15 20:00] LABS: Bedside Glucose 116 mg/dL (70-110)
--- NOTE | 2021-08-15 20:11 | ED.RN ---
do not give trandate at this time per dr. palumbo.
[2021-08-15 20:25] LABS: Absolute Lymphocyte Count 1.43 X10^3/uL (0.83-4.51); Absolute Neutrophil Count 6.3 X10^3/uL (2.0-7.7); Basophil# 0.02 X10^3/uL; Basophil% 0.2 % (0-1); Eosinophil# 0.06 X10^3/uL; Eosinophils% 0.7 % (0-5); Hematocrit 42.4 % (37-47); Hemoglobin 13.4 g/dL (12.0-15.0); Lymphocyte # 1.43 X10^3/ul (0.83-4.51); Lymphocyte % 16.9 % (19-41); Mean Corp Hgb Conc 31.6 g/dL (32-36); Mean Corpuscular Hgb 27.7 pg (27.0-32.0); Mean Corpuscular Volume 87.8 fL (81-99); Mean Platelet Vol. 10.3 fl (6.2-12.0); Monocyte# 0.65 X10^3/uL; Monocyte% 7.7 % (0-10); NRBC Flagged by Analyzer 0 % (0-5); Neutrophil # 6.26 X10^3/uL (2.7-7.7); Neutrophil % 74.1 % (47-70); Platelet Count 250 K/mm3 (150-450); RBC Distribution Width SD 44.7 fl (35.1-43.9); Red Blood Count 4.83 M/mm3 (4.2-5.4); White Blood Count 8.5 K/mm3 (4.4-11.0)
[2021-08-15 20:39] LABS: Anion Gap 6 (5-15); BUN 11 mg/dL (7-18); Calcium,Total 9.8 mg/dL (8.5-10.1); Chloride 106 mmol/L (98-107); Creatinine, Serum 0.73 mg/dL (0.55-1.02); EST Glomerular Filtration Rate 80 mL/min (>60); Est Glom Filt Rate - Afr Amer 97 mL/min (>60); Estimated Creatinine Clearance 34.46 ml/min; Glucose 114 mg/dL (74-106); Potassium 3.5 mmol/L (3.5-5.1); Sodium Level 142 mmol/L (136-145); Troponin-I HS 11 pg/mL (3.0-54.0)
[2021-08-15 21:35] LABS: International Normalized Ratio 1.1; Prothrombin Time (Protime)PT. 13.1 SECONDS (11.7-14.9)
[2021-08-15 21:36] LABS: Partial Thromboplast Time 36.3 Seconds (24.1-36.2)
--- NOTE | 2021-08-15 22:52 | HP.PCM.HOS_ITS ---
HPI - General General Date of Admission: 08/15/21 HPI Narrative MICHAEL VALENZUELA, is a 85 F with a significant history of multiple TIAs and restless leg syndrome who presents at the emergency department with disequilibrium. Reportedly 3 days before presentation patient was veering to the left. She called her PCPs office and was advised to come to the hospital however because of a dermatological appointment as she could not come over. After several calls from the PCPs office she decided to come to the emergency department. And her disequilibrium has been persistent. She reported at the emergency department she failed swallow eval. Also she reports chest pain that lasted for about 30 minutes. Her chest pain resolved with taking Tums. Emergency department doctor reports dysmetria with examination [facility] Medical History Anxiety Arthritis Atrial fibrillation Behcet's disease Bleeding ulcer Cataract Chronic GERD Colitis Crohns disease Depression Diverticulosis Exanthematous disorder Eye cancer Fibromyalgia Glossodynia History of pneumonia Hyperlipidemia lap repair bladder injury Low back pain Lymphocytic colitis Meningitis Raynaud's disease Ulcer of mouth Home Medications acetaminophen 500 mg PO Q6H PRN PRN 03/29/16 [History Last Taken 09/26/18] aspirin 81 mg PO DINNER 03/29/16 [History Last Taken 09/26/18] atorvastatin 5 mg PO QODAY 03/29/16 [History Last Taken 09/26/18] calcium citrate-vitamin D3 2 tab PO BID 03/29/16 [History Last Taken 09/27/18] cyclosporine 1 drp EACH EYE BID 03/29/16 [History Last Taken 09/27/18] flaxseed oil 1,000 mg PO DAILY 03/29/16 [History Last Taken 09/27/18] hydroxychloroquine 200 mg PO DAILYCM 03/29/16 [History Last Taken 09/26/18] melatonin 3 mg PO QHS 03/29/16 [History Last Taken 09/26/18] pilocarpine HCl 5 mg PO TID 03/29/16 [History Last Taken 09/27/18] polyethylene glycol 3350 17 gm PO DAILY PRN PRN 03/29/16 [History Last Taken 09/27/18] pramipexole 0.125 mg PO 1530,1800,2000,2200 03/29/16 [History Last Taken 09/26/18] oxycodone-acetaminophen 0.5 tab PO BID 09/19/16 [History Last Taken 09/26/18] Tumeric 500 mg PO DAILY 09/27/18 [History Last Taken 09/26/18] clonazepam 0.25 mg PO QHS 09/27/18 [History Last Taken 09/26/18] fluticasone propionate 2 spry NASAL DAILY 09/27/18 [History Last Taken 09/24/18] magnesium oxide 500 mg PO QHS 09/27/18 [History Last Taken 09/26/18] multivitamin 1 tab PO DAILY 09/27/18 [History Last Taken 09/26/18] peg 400-propylene glycol 30 ml OP Q6H 09/27/18 [History Last Taken 09/27/18] venlafaxine 75 mg PO DAILY 09/27/18 [History Last Taken 09/27/18] vitamin B complex 1 tab PO DAILY 09/27/18 [History Last Taken 09/26/18] wheat dextrin 5 ml PO DAILY 09/27/18 [History Last Taken 09/27/18] white petrolatum-mineral oil 3.5 gm OP DAILY 09/27/18 [History Last Taken 09/26/18] Lactobacill 46-B.animal-inulin 1 ea PO DAILY 06/25/19 [History Last Taken Unknown] omeprazole 20 mg PO BID 06/25/19 [History Last Taken Unknown] ondansetron HCl 4 mg PO Q12H PRN PRN 06/25/19 [History Last Taken Unknown] Systane (PF) 1 drp EACH EYE PRN PRN 08/16/21 [History Last Taken Unknown] pregabalin [Lyrica] 25 mg PO 4X/DAY 08/16/21 [History Last Taken Unknown] Allergy/AdvReac Type Severity Reaction Status Date / Time difluprednate [From Durezol] Allergy Other Verified 08/15/21 17:03 methylprednisolone Allergy Rash Verified 08/15/21 17:03 Penicillins Allergy Unknown Verified 08/15/21 17:03 prednisolone Allergy Swelling Verified 08/15/21 17:03 citalopram AdvReac Diarrhea Verified 08/15/21 17:03 codeine AdvReac Nausea Verified 08/15/21 17:03 dexamethasone AdvReac Other Verified 08/15/21 17:03 duloxetine HCl AdvReac Diarrhea Verified 08/15/21 17:03 [From Cymbalta] Iodinated Contrast Media AdvReac unknown Verified 08/15/21 17:03 [Iodinated Contrast- Oral and IV Dye] lamotrigine [From Lamictal] AdvReac DRUGGED Verified 08/15/21 17:03 FEELING metoclopramide HCl AdvReac INVOLUNTARY Verified 08/15/21 17:03 [From Reglan] BODY MOVEMENTS mirabegron [From Myrbetriq] AdvReac Other Verified 08/15/21 17:03 promethazine HCl AdvReac INVOLUNTARY Verified 08/15/21 17:03 [From Phenergan] BODY MOVEMENTS sertraline HCl [From Zoloft] AdvReac Diarrhea Verified 08/15/21 17:03 sulfamethoxazole AdvReac FELT Verified 08/15/21 17:03 [From Bactrim] WEIRD, HEAD NUMB, FELT DRUGGED, SHAKEY, NAUSEATED trimethoprim [From Bactrim] AdvReac FELT Verified 08/15/21 17:03 WEIRD, HEAD NUMB, FELT DRUGGED, SHAKEY, NAUSEATED Family History Other Arthritis Asthma Breast cancer CVA (cerebral vascular accident) Diabetes Heart disease Hyperlipidemia Hypertension Osteoporosis Ulcer auto immune disease Surgical History H/O adenoidectomy H/O colonoscopy H/O cystoscopy H/O dilation and curettage H/O endoscopy H/O vaginal hysterectomy History of cholecystectomy History of tonsillectomy Hx of appendectomy Social History household members: none Smoking Status: Never smoker alcohol intake: never ROS ROS Narrative Constitutional: Denies fever, chills, fatigue, anorexia and change in weight Eyes: Denies blurry vision, change in eye color, change in vision, discharge from eye(s), double vision, erythema, eye pain, loss of vision or other HEENT: Denies abnormal hearing, dysphagia, ear pain, epistaxis, headache(s), hearing loss, nasal congestion, nasal discharge, post nasal drip, sinus pressure, sore throat or other Cardiovascular: Reports chest pain. Denies dyspnea on exertion, orthopnea and paroxysmal nocturnal dyspnea Respiratory/Chest: Denies cough, excessive phlegm production, shortness of breath with exertion and wheezing Gastrointestinal: Denies abdominal pain, coffee ground emesis, constipation, diarrhea, dyspepsia, hematemesis, hematochezia, loose stools, melena, nausea, vomiting or other Genitourinary: Denies burning urination, difficulty urinating, dysuria, hematuria, nocturia, urinary frequency, urinary hesitancy, urinary incontinence, urinary urgency or other Musculoskeletal: Denies arthralgias, back pain, joint pain, joint stiffness, joint swelling, myalgias, neck pain or other Neurologic: Reports abnormal gait. Denies abnormal speech, confusion, dizziness, focal weakness, headache(s), numbness, paresthesias, seizure-like a ctivity, seizures, syncope, tingling, tremor(s) or other Psychiatric: Denies anxiety, depression, homicidal ideation, suicidal ideation or other Endocrinology: Denies change in body appearance, cold intolerance, excessive sweating, heat intolerance, polydipsia, polyuria or other Hematologic/Lymphatic: Denies anemia, easy bleeding, easy bruising, lymphadenopathy or other Integumentary: Denies rashes Allergic/Immunologic: Denies rhinitis, hives, eczema, asthma or other Vital Signs Vital Signs Vital Signs: 08/15/21 17:03 08/15/21 18:26 08/15/21 19:40 Temperature 96.4 F L Temperature Source Temporal Pulse Rate 98 89 Respiratory Rate 16 22 H Respiratory Effort Blood Pressure 163/88 H 154/89 H Blood Pressure Mean 113 110 Pulse Ox 100 96 97 Oxygen Delivery Method Room Air Room Air Room Air Oxygen Flow Rate (L/min) 08/15/21 19:44 08/15/21 19:45 08/15/21 19:52 Temperature Temperature Source Pulse Rate 87 Respiratory Rate 18 Respiratory Effort Normal Non-Labored Blood Pressure 154/89 H Blood Pressure Mean 110 Pulse Ox 96 Oxygen Delivery Method Room Air Room Air Oxygen Flow Rate (L/min) 96 08/15/21 20:10 08/15/21 20:42 08/15/21 21:16 Temperature Temperature Source Pulse Rate 82 83 80 Respiratory Rate 20 H 17 12 Respiratory Effort Blood Pressure 154/89 H 122/97 H 149/73 H Blood Pressure Mean 110 105 98 Pulse Ox 98 96 Oxygen Delivery Method Room Air Room Air Oxygen Flow Rate (L/min) 08/15/21 21:30 Temperature Temperature Source Pulse Rate 76 Respiratory Rate 16 Respiratory Effort Blood Pressure 149/73 H Blood Pressure Mean 98 Pulse Ox 93 Oxygen Delivery Method Room Air Oxygen Flow Rate (L/min) Weight Weight: 53.07 kg Body Mass Index (BMI) 23.6 Physical Exam Narrative Physical exam: General: Well-nourished, well-developed. Head: Normocephalic, atraumatic, no tenderness Eyes: PERRLA, EOMI ENT, no trauma, moist mucous membranes, no rhinorrhea Neck: Nontender, full range of motion, no spinal tenderness, deformities, step- off CVS: Regular rate and rhythm. S1-S2 present. No murmur, gallop or rub. Respiratory : clear to auscultation bilaterally, chest wall nontender, no wheezing Abdomen: Soft, nontender, nondistended, normal bowel sounds, no masses : Deferred Back: Nontender, no CVA tenderness, no midline spinal tenderness, deformities, step-offs Extremities: Nontender full range of motion, no trauma Skin: Normal color, no trauma, abrasions Neuro: Alert, oriented, cranial nerves II through XII grossly intact. Strength 5 out of 5 throughout. No dysmetria. Psychiatry: Normal mood. Normal affect. Not depressed. Not anxious. Results Lab / Micro Data Result Diagrams: 08/16/21 02:45 08/16/21 02:45 Labs: Laboratory Results - last 24 hr 08/15/21 17:44: Urine Color Yellow, Urine Clarity Clear, Urine pH 6.5, Ur Specific Chester 1.010, Urine Protein Negative, Urine Glucose (UA) Normal, Urine Ketones Negative, Urine Occult Blood 10 H, Urine Nitrite Negative, Urine Bilirubin Negative, Urine Urobilinogen Normal, Ur Leukocyte Esterase Negative, Urine RBC 0 SEEN, Urine WBC 0 SEEN, Ur Squamous Epith Cells 0 SEEN, Urine Bacteria 0 SEEN, Urine Mucus 0 SEEN 08/15/21 19:56: POC Glucose 116 H 08/15/21 20:15: WBC 8.5, RBC 4.83, Hgb 13.4, Hct 42.4, MCV 87.8, MCH 27.7, MCHC 31.6 L, RDW Std Deviation 44.7 H, RDW Coeff of Celine 14.0, Plt Count 250, MPV 10.3, Immature Gran % (Auto) 0.400, Neut % (Auto) 74.1 H, Lymph % (Auto) 16.9 L, Leslie % (Auto) 7.7, Eos % (Auto) 0.7, Baso % (Auto) 0.2, Absolute Neuts (auto) 6.3, Absolute Lymphs (auto) 1.43, Nucleated RBC % 0 08/15/21 20:15: PT Cancelled, INR Cancelled, APTT Cancelled 08/15/21 20:15: Sodium 142, Potassium 3.5, Chloride 106, Carbon Dioxide 30.0, Anion Gap 6, BUN 11, Creatinine 0.73, Estim Creat Clear Calc 34.46, Est GFR (MDRD) Af Amer 97, Est GFR (MDRD) Non-Af 80, BUN/Creatinine Ratio 15.0, Glucose 114 H, Calcium 9.8, Troponin I High Sens 11 08/15/21 21:05: PT 13.1, INR 1.1, APTT 36.3 H Radiology Impression Brain CT 08/15/21 19:40 IMPRESSION: There are no acute findings. Chronic involutional changes of the brain. Electronically Signed: Fausto Chin MD at 20:51 EST , Service support , ADDENDUM: 08/15/212058 IMPRESSION: There are no acute findings. Chronic involutional changes of the brain. N.B. : The above Results were Read Back by Fausto Chin MD to Rigoberto Garcia MD , , and understanding confirmed on 08/15/2021 20:52:27 (ET). Electronically Signed: Fausto Chin MD at 20:51 EST , Service support , Chest X-Ray 08/15/21 19:40 IMPRESSION: There are no acute findings. Electronically Signed: Fausto Chin MD at 21:28 EST , Service support , Assessment & Plan Assessment/Plan (1) Acute CVA (cerebrovascular accident): (2) Chest pain: QUALIFIERS: Chest pain type: other chest pain Qualified Code(s): R07.89 - Other chest pain (3) Cerebellar dysmetria: PLAN: Acute CVA Serial NINDS NIH Scale ordered Impression of head CT by radiology: Is as above. Upon my personal head CT image interpretation: I agree with radiologist interpretation Lipid profile and A1c ordered. Physical therapy, occupational therapy and speech therapy to work with patient. Of note patient could not pass swallow eval so she'll be n.p.o. until speech evaluation. Patient is on low-dose statin. If patient passed swallow eval consider escalating dose of statin. Continue home aspirin when patient's passes speech evaluation. Permissive hypertension. Control blood pressure with labetalol for systolic blood pressure of more than 220 or diastolic blood pressure of more than 120. MRI/MRA of head; brain; and neck. Echocardiogram ordered. Failed swallow eval. Keep npo. Speech consult. Chest pain Trend troponin Restless leg syndrome With patient n.p.o. morphine IV was given for restless leg syndrome since her pain was excruciating. DVT prophylaxis SCD ordered Charges/Coding Visit Charges OBSV E&M: 77791 Initial observation care L2
--- NOTE | 2021-08-15 23:51 | ECHOD_ITS ---
Reason For Study: TIA/CVA Procedure This was a 2D Doppler, Color Flow transthoracic echocardiogram. Exam performed portable in patient room. Left Ventricle Normal left ventricle. The estimated ejection fraction is 55-60 %. Right Ventricle Normal right ventricle. Normal systolic function. Atria The left atrium is mildly enlarged. Normal right atrium. Intact atrial septum. Mitral Valve There is mild mitral annular calcification. Trivial mitral valve insufficiency. Tricuspid Valve Normal tricuspid valve. Trivial tricuspid valve insufficiency. Aortic Valve Mild focal aortic valve calcification. Pulmonic Valve The pulmonic valve is not well visualized. Great Vessels Normal aortic root. Pericardium/Pleural No pericardial effusion. Medication Performed a rapid injection of agitated mix of 9 cc saline and 1cc air to assess for atrial septal defect. MMode/2D Measurements & Calculations LVIDd: 3.4 cm IVSd: 1.1 cm Ao root diam: 2.5 cm LVIDs: 1.7 cm LVPWd: 1.0 cm RVDd: 2.8 cm FS: 52.0 % LAV(MOD-bp): 28.5 ml LVAd ap4: 17.3 cm2 LVAd ap2: 19.6 cm2 LAV(MOD-bp) Indexed: 19.4 ml/m2 LVLd ap4: 6.5 cm LVLd ap2: 6.7 cm LAV(MOD-sp2): 36.2 ml EDV(MOD-sp4): 38.6 ml EDV(MOD-sp2): 48.3 ml LAV(MOD-sp4): 22.4 ml EDV(sp4-el): 39.2 ml EDV(sp2-el): 49.1 ml LVAs ap4: 9.9 cm2 LVAs ap2: 10.5 cm2 LVLs ap4: 5.6 cm LVLs ap2: 5.6 cm ESV(MOD-sp4): 15.1 ml ESV(MOD-sp2): 16.8 ml ESV(sp4-el): 14.9 ml ESV(sp2-el): 16.6 ml EF(MOD-sp4): 60.9 % EF(MOD-sp2): 65.2 % EF(sp4-el): 62.0 % SV(MOD-sp4): 23.5 ml SV(MOD-sp2): 31.5 ml SV(sp4-el): 24.3 ml LA A4 area: 11.8 cm2 LA dimension(2D): 3.0 cm RA A4 area: 8.9 cm2 Doppler Measurements & Calculations MV E max torito: 69.5 cm/sec Lat Peak E' Torito: 8.1 cm/sec Med Peak E' Torito: 7.1 cm/sec MV A max torito: 96.7 cm/sec E/E' lat: 8.6 E/E' med: 9.8 MV E/A: 0.72 Ao V2 max: 133.5 cm/sec LV V1 max: 112.1 cm/sec PA V2 max: 68.6 cm/sec Ao max P.1 mmHg LV V1 max P.0 mmHg TR max torito: 244.1 cm/sec TR max P.9 mmHg ECHO/Echo Complete Interpretation Summary The estimated ejection fraction is 55-60 %. Normal LV systolic function Grade # I Diastolic dysfunction Buble study is negative No significant difference from prior Echo Ordering Physician: Haroon Medina Referring Physician: Leatha Kincaid Performed By: Latasha Meyers RDCS
--- NOTE | 2021-08-15 23:59 | PCS.PANDOC ---
PANDEMIC DOCUMENTATION INITIATED: Date: 04/22/2021 Time: 190
[2021-08-16] VITALS (8 sets, daily range): BP systolic 126–162; BP diastolic 57–73; PULSE 72–84; RESP 16; TEMP 36.2–36.9; O2SAT 95–98
[2021-08-16 01:33] LABS: Troponin-I HS 8 pg/mL (3.0-54.0)
[2021-08-16] MEDS: Morphine 2 MG/ML Syringe 1 MG IV ×3 (02:38→13:28)
[2021-08-16 02:56] LABS: Absolute Lymphocyte Count 1.83 X10^3/uL (0.83-4.51); Absolute Neutrophil Count 5.5 X10^3/uL (2.0-7.7); Basophil# 0.02 X10^3/uL; Basophil% 0.2 % (0-1); Eosinophil# 0.12 X10^3/uL; Eosinophils% 1.5 % (0-5); Hematocrit 42.4 % (37-47); Hemoglobin 13.6 g/dL (12.0-15.0); Lymphocyte # 1.83 X10^3/ul (0.83-4.51); Lymphocyte % 22.5 % (19-41); Mean Corp Hgb Conc 32.1 g/dL (32-36); Mean Corpuscular Hgb 27.6 pg (27.0-32.0); Mean Corpuscular Volume 86.2 fL (81-99); Monocyte# 0.68 X10^3/uL; Monocyte% 8.4 % (0-10); NRBC Flagged by Analyzer 0 % (0-5); Neutrophil # 5.45 X10^3/uL (2.7-7.7); Neutrophil % 67.2 % (47-70); Platelet Count 246 K/mm3 (150-450); RBC Distribution Width CV 13.9 % (11.6-14.6); RBC Distribution Width SD 43.8 fl (35.1-43.9); Red Blood Count 4.92 M/mm3 (4.2-5.4); White Blood Count 8.1 K/mm3 (4.4-11.0)
[2021-08-16] MEDS: 0.9% Saline Lock 10 ML Syringe IV ×3 (02:56→13:28)
[2021-08-16 03:13] LABS: Troponin-I HS 8 pg/mL (3.0-54.0)
[2021-08-16 03:14] LABS: Anion Gap 7 (5-15); BUN 9 mg/dL (7-18); BUN/Creat Ratio 13.5 RATIO (10-20); Calcium,Total 9.4 mg/dL (8.5-10.1); Chloride 108 mmol/L (98-107); Cholesterol 161 mg/dL (200); Creatinine, Serum 0.67 mg/dL (0.55-1.02); EST Glomerular Filtration Rate 89 mL/min (>60); Est Glom Filt Rate - Afr Amer 108 mL/min (>60); Estimated Creatinine Clearance 34.28 ml/min; Glucose 94 mg/dL (74-106); High Density Lipoprotein 73 mg/dL; Potassium 3.4 mmol/L (3.5-5.1); Sodium Level 142 mmol/L (136-145); Triglycerides 66 mg/dL; Very Low Density Lipoprotein 13 mg/dL (5-40)
[2021-08-16 08:36] LABS: Hemoglobin A1c 5.6 % (3.8-5.6)
--- NOTE | 2021-08-16 10:00 | MRI_ITS ---
History: cva EXAMINATION: MRA Head W/O Contrast TECHNIQUE: Routine [place] of Sanchez/brain 3D time of flight MR angiogram protocol was performed without gadolinium. 3D reconstructions were reviewed. IV Contrast dosage and agent: COMPARISON: CT brain August 15, 2021 FINDINGS: --Anterior circulation: ICAs: No significant stenosis at the intracranial/visualized segments. ACAs: No significant stenosis at the visualized segments. ACOM: Not identified MCAs: No significant stenosis at the visualized segments. 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 BASILAR ARTERY: No significant stenosis. VERTEBRAL ARTERIES: No significant stenosis at the intradural/visualized segments. No evidence of intracranial aneurysm or vascular malformation. MRI/MRA Head ONLY without Contrast IMPRESSION: Unremarkable MRA head. at 1131 Reported and signed by: Jason Reyes MD Electronically Signed: Jason Reyes MD at 11:30 EST Tel , Service support ,
--- NOTE | 2021-08-16 10:00 | MRI_ITS ---
History: tia EXAMINATION: MRA Neck W/O Contrast TECHNIQUE: Routine non-contrast Cmij-in-mepslo Carotid MR angiogram protocol was performed without gadolinium. 3D reconstructions were reviewed. Nascet criteria using the distal ICAs for comparison were used for evaluation of stenoses. IV Contrast dosage and agent: None. COMPARISON: None FINDINGS: Prominent tortuosity of the proximal portion of the common carotid and vertebral arteries noted bilaterally. AORTIC ARCH AND BRANCHES: No significant stenosis at the visualized portions. RIGHT CCA: No occlusion or significant stenosis. RIGHT ICA: No occlusion or significant stenosis. LEFT CCA: No occlusion or significant stenosis. LEFT ICA: No occlusion or significant stenosis. RIGHT VERTEBRAL ARTERY: No occlusion or significant stenosis. LEFT VERTEBRAL ARTERY: No occlusion or significant stenosis. MRI/MRA Neck without Contrast IMPRESSION: No evidence of arterial stenosis or occlusion. Prominent tortuosity related to atherosclerotic change. at 1130 Reported and signed by: Jason Reyes MD Electronically Signed: Jason Reyes MD at 11:29 EST Tel , Service support ,
--- NOTE | 2021-08-16 10:00 | MRI_ITS ---
EXAM: MR HEAD WITHOUT INTRAVENOUS CONTRAST : 1935 CLINICAL INDICATION: cva TECHNIQUE: Multiplanar and multisequence MR images of the brain were obtained without intravenous contrast. This report was created using [employer] report generation technology. COMPARISON: CT brain August 15, 2021 FINDINGS: BRAIN AND EXTRA-AXIAL SPACES: Multiple foci of increased T2 signal intensity within the cerebral white matter consistent with gliosis/chronic microvascular disease. No intra- or extra-axial hemorrhage. No evidence of acute infarct. No intracranial mass or mass effect. There is preservation of the fairchild/white matter interface. Posterior fossa structures are unremarkable. Ventricles are appropriate for age. No hydrocephalus. Basal cisterns are patent. SELLA: Unremarkable. Normal sella turcica, pituitary gland, infundibular stalk, optic chiasm and hypothalamus. AUDITORY SYSTEM: Unremarkable. The internal auditory canals are patent. BONES/JOINTS: Unremarkable. No discrete lytic or blastic abnormalities. SINUSES: Unremarkable as visualized. Clear. MASTOID AIR CELLS: Unremarkable as visualized. Clear. ORBITS: Unremarkable as visualized. Both globes, extraocular muscles, optic nerves and retrobulbar fat appear unremarkable. VASCULATURE: Unremarkable as visualized. Normal flow voids in the major intracranial circulation. MRI/Brain without Contrast IMPRESSION: 1. No acute abnormality. 2. Chronic microvascular changes. at 1133 Reported and signed by: Jason Reyes MD Electronically Signed: Jason Reyes MD at 11:32 EST Tel , Service support ,
[2021-08-16] MEDS: Potassium Chloride Oral Tablet 20 MEQ 40 MEQ PO (11:52)
--- NOTE | 2021-08-16 12:51 | CASEMGMT ---
Per speech, pt needs OP MBS, Dr. Geronimo notified via cortext at this time. Ralph RIVERA CM
--- NOTE | 2021-08-16 13:47 | CASEMGMT ---
This RN CM to room and pt states no concerns with going home at discharge. Pt declines need for any further therapy/resources. SStaten RN CM
--- NOTE | 2021-08-16 14:11 | CASEMGMT ---
Social Work SW met with pt and completed PHQ9 depression screen. Pt with score of 4/27 indicating minimal depression. Pt states she has taken an antidepressant for a long time and recently she and PCP reduced the dose. Pt denies any concerns with depression at this time. SW will remain available should needs arise. DOC Cadet
--- NOTE | 2021-08-16 14:57 | PCM.DC.SUM ---
Providers Date of Admission: 08/15/21 Primary Care Physician: Dr. Leatha Kincaid MD Reason For Visit: off balance, cp Diagnosis Discharge Diagnosis (1) Acute CVA (cerebrovascular accident): Status: Acute Code(s): I63.9 - Cerebral infarction, unspecified (2) Chest pain: Status: Acute Code(s): R07.9 - Chest pain, unspecified Qualifiers: Chest pain type: other chest pain Qualified Code(s): R07.89 - Other chest pain (3) Cerebellar dysmetria: Status: Acute Code(s): R27.8 - Other lack of coordination Medications at Discharge Home Medications acetaminophen 500 mg PO Q6H PRN PRN 03/29/16 aspirin 81 mg PO DINNER 03/29/16 atorvastatin 5 mg PO QODAY 03/29/16 calcium citrate-vitamin D3 2 tab PO BID 03/29/16 cyclosporine 1 drp EACH EYE BID 03/29/16 flaxseed oil 1,000 mg PO DAILY 03/29/16 hydroxychloroquine 200 mg PO DAILYCM 03/29/16 melatonin 3 mg PO QHS 03/29/16 pilocarpine HCl 5 mg PO TID 03/29/16 polyethylene glycol 3350 17 gm PO DAILY PRN PRN 03/29/16 pramipexole 0.125 mg PO 1530,1800,2000,2200 03/29/16 oxycodone-acetaminophen 0.5 tab PO BID 09/19/16 Tumeric 500 mg PO DAILY 09/27/18 clonazepam 0.25 mg PO QHS 09/27/18 fluticasone propionate 2 spry NASAL DAILY 09/27/18 magnesium oxide 500 mg PO QHS 09/27/18 multivitamin 1 tab PO DAILY 09/27/18 peg 400-propylene glycol 30 ml OP Q6H 09/27/18 venlafaxine 75 mg PO DAILY 09/27/18 vitamin B complex 1 tab PO DAILY 09/27/18 wheat dextrin 5 ml PO DAILY 09/27/18 white petrolatum-mineral oil 3.5 gm OP DAILY 09/27/18 Lactobacill 46-B.animal-inulin 1 ea PO DAILY 06/25/19 omeprazole 20 mg PO BID 06/25/19 ondansetron HCl 4 mg PO Q12H PRN PRN 06/25/19 Systane (PF) 1 drp EACH EYE PRN PRN 08/16/21 pregabalin [Lyrica] 25 mg PO 4X/DAY 08/16/21 Hospital Course Operations None Procedures None Summary of Care Provided Minutes Spent on Discharge: 45 Hospital Course: 85-year-old female with past medical history of osteoporosis, estrogen syndrome, ankylosing spondylitis, history of vertebral fractures, on multiple psychotropic medications comes in with this equilibrium. This has been going on for couple of days. Patient was admitted to the PCU for work-up for acute stroke/TIA. Initial CT of the brain was negative for acute abnormality. Admitting chest x-ray was unremarkable. MRI of the brain as well as MRA of the head and neck was unremarkable. Patient was seen by PT and OT. There were no discharge recommendations. She was discharged home. She will follow-up with her primary care doctor within 1 to 2 weeks. Physical Exam Narrative Physical exam: General: Alert, Oriented x3, Cooperative, No apparent distress, cachectic, frail HEENT: Atraumatic Oral: Moist Mucosa Neck: Supple Lungs: Clear to auscultation Cardiovascular: HS I+II, regular, no murmurs Abdomen: Bowel Sounds Present, Soft, Non Tender Extremities: No edema Weight / BMI Weight Weight: 52.8 kg Body Mass Index (BMI) 23.5 ABG / Lab / Microbiology Data Result Diagrams: 08/16/21 02:45 08/16/21 02:45 Laboratory: Laboratory Results - last 24 hr 08/15/21 17:44: Urine Color Yellow, Urine Clarity Clear, Urine pH 6.5, Ur Specific Garfield 1.010, Urine Protein Negative, Urine Glucose (UA) Normal, Urine Ketones Negative, Urine Occult Blood 10 H, Urine Nitrite Negative, Urine Bilirubin Negative, Urine Urobilinogen Normal, Ur Leukocyte Esterase Negative, Urine RBC 0 SEEN, Urine WBC 0 SEEN, Ur Squamous Epith Cells 0 SEEN, Urine Bacteria 0 SEEN, Urine Mucus 0 SEEN 08/15/21 19:56: POC Glucose 116 H 08/15/21 20:15: WBC 8.5, RBC 4.83, Hgb 13.4, Hct 42.4, MCV 87.8, MCH 27.7, MCHC 31.6 L, RDW Std Deviation 44.7 H, RDW Coeff of Celine 14.0, Plt Count 250, MPV 10.3, Immature Gran % (Auto) 0.400, Neut % (Auto) 74.1 H, Lymph % (Auto) 16.9 L, Berrien % (Auto) 7.7, Eos % (Auto) 0.7, Baso % (Auto) 0.2, Absolute Neuts (auto) 6.3, Absolute Lymphs (auto) 1.43, Nucleated RBC % 0 08/15/21 20:15: PT Cancelled, INR Cancelled, APTT Cancelled 08/15/21 20:15: Sodium 142, Potassium 3.5, Chloride 106, Carbon Dioxide 30.0, Anion Gap 6, BUN 11, Creatinine 0.73, Estim Creat Clear Calc 34.46, Est GFR (MDRD) Af Amer 97, Est GFR (MDRD) Non-Af 80, BUN/Creatinine Ratio 15.0, Glucose 114 H, Calcium 9.8, Troponin I High Sens 11 08/15/21 21:05: PT 13.1, INR 1.1, APTT 36.3 H 08/16/21 00:40: Troponin I High Sens 8 08/16/21 02:45: WBC 8.1, RBC 4.92, Hgb 13.6, Hct 42.4, MCV 86.2, MCH 27.6, MCHC 32.1, RDW Std Deviation 43.8, RDW Coeff of Celine 13.9, Plt Count 246, MPV 10.0, Immature Gran % (Auto) 0.200, Neut % (Auto) 67.2, Lymph % (Auto) 22.5, Berrien % (Auto) 8.4, Eos % (Auto) 1.5, Baso % (Auto) 0.2, Absolute Neuts (auto) 5.5, Absolute Lymphs (auto) 1.83, Nucleated RBC % 0 08/16/21 02:45: Sodium 142, Potassium 3.4 L, Chloride 108 H, Carbon Dioxide 27.0, Anion Gap 7, BUN 9, Creatinine 0.67, Estim Creat Clear Calc 34.28, Est GFR (MDRD) Af Amer 108, Est GFR (MDRD) Non-Af 89, BUN/Creatinine Ratio 13.5, Glucose 94, Calcium 9.4, Triglycerides 66, Cholesterol 161, LDL Cholesterol 75, VLDL Cholesterol 13, HDL Cholesterol 73 08/16/21 02:45: Troponin I High Sens 8 08/16/21 02:45: Hemoglobin A1c 5.6 Radiography Diagnostic Testing: Radiology Impression Brain CT 08/15/21 19:40 IMPRESSION: There are no acute findings. Chronic involutional changes of the brain. Electronically Signed: Fausto Chin MD at 20:51 EST , Service support , ADDENDUM: 08/15/212058 IMPRESSION: There are no acute findings. Chronic involutional changes of the brain. N.B. : The above Results were Read Back by Fausto Chin MD to Rigoberto Garcia MD , , and understanding confirmed on 08/15/2021 20:52:27 (ET). Electronically Signed: Fausto Chin MD at 20:51 EST , Service support , Chest X-Ray 08/15/21 19:40 IMPRESSION: There are no acute findings. Electronically Signed: Fausto Chin MD at 21:28 EST , Service support , Echocardiogram 08/15/21 23:51 Interpretation Summary The estimated ejection fraction is 55-60 %. Normal LV systolic function Grade # I Diastolic dysfunction Buble study is negative No significant difference from prior Echo Ordering Physician: Haroon Medina Referring Physician: Leatha Kincaid Performed By: Latasha Meyers, ARA Brain MRI 08/16/21 10:00 IMPRESSION: 1. No acute abnormality. 2. Chronic microvascular changes. at 1133 Reported and signed by: Jason Reyes MD Electronically Signed: Jason Reyes MD at 11:32 EST Tel , Service support , Head MRA 08/16/21 10:00 IMPRESSION: Unremarkable MRA head. at 1131 Reported and signed by: Jason Reyes MD Electronically Signed: Jason Reyes MD at 11:30 EST Tel , Service support , Neck MRA 08/16/21 10:00 IMPRESSION: No evidence of arterial stenosis or occlusion. Prominent tortuosity related to atherosclerotic change. at 1130 Reported and signed by: Jason Reyes MD Electronically Signed: Jason Reyes MD at 11:29 EST Tel , Service support , D/C Instructions Discharge Diet: No restrictions Meaningful Use Info Meaningful Use Diagnoses (Choose all that apply): None applicable Discharge Plan Admission Admit Date/Time: 08/15/21 22:41 Primary Reason for Your Visit: Dysequilibrium Attending Provider: Angela Geronimo Primary Care Provider: Leatha Kincaid Instructions Additional Instructions / Restrictions: Follow-up with your primary care doctor within 2 weeks. Continue to keep yourself hydrated. Discharge Orders/Prescriptions Prescriptions: Continued pilocarpine HCl 5 MG tablet 5 mg PO TID RF: 0 polyethylene glycol 3350 17 GM packet 17 gm PO DAILY PRN PRN (Reason: Constipation) RF: 0 atorvastatin 10 MG tablet 5 mg PO QODAY RF: 0 melatonin 3 MG tablet 3 mg PO QHS RF: 0 aspirin 81 MG tablet,delayed release (DR/EC) 81 mg PO DINNER RF: 0 acetaminophen 500 MG tablet 500 mg PO Q6H PRN PRN (Reason: Pain) RF: 0 flaxseed oil 1,000 MG capsule 1,000 mg PO DAILY RF: 0 pramipexole 0.125 MG tablet 0.125 mg PO 1530,1800,2000,2200 RF: 0 hydroxychloroquine 200 MG tablet 200 mg PO DAILYCM RF: 0 cyclosporine 1 DROP dropperette 1 drp EACH EYE BID RF: 0 calcium citrate-vitamin D3 1 EACH tablet 2 tab PO BID RF: 0 oxycodone-acetaminophen 1 TABLET tablet 0.5 tab PO BID RF: 0 clonazepam 0.5 MG tablet 0.25 mg PO QHS RF: 0 fluticasone propionate 16 GM spray,suspension 2 spry NASAL DAILY RF: 0 magnesium oxide 250 MG tablet 500 mg PO QHS RF: 0 multivitamin 1 EACH tablet 1 tab PO DAILY RF: 0 venlafaxine 150 MG capsule,extended release 24hr 75 mg PO DAILY RF: 0 vitamin B complex 1 EACH tablet 1 tab PO DAILY RF: 0 peg 400-propylene glycol 1 DROP bottle 30 ml OP Q6H RF: 0 white petrolatum-mineral oil 3.5 GM ointment 3.5 gm OP DAILY RF: 0 Tumeric 500 mg PO DAILY RF: 0 wheat dextrin 152 GM powder 5 ml PO DAILY RF: 0 ondansetron HCl 4 MG tablet 4 mg PO Q12H PRN PRN (Reason: Nausea) RF: 0 omeprazole 20 MG capsule,delayed release(DR/EC) 20 mg PO BID RF: 0 Lactobacill 46-B.animal-inulin 1 EACH capsule 1 ea PO DAILY RF: 0 Systane (PF) 1 drp EACH EYE PRN PRN (Reason: Dry Eyes) RF: 0 pregabalin [Lyrica] 25 mg Capsule 25 mg PO 4X/DAY RF: 0 Referrals / Follow Up: Leatha Kincaid MD [Primary Care Provider] - Within 2 Weeks Disposition Disposition (needs filled in before D/C Order can be placed): Home, Self Care Charges/Coding Visit Charges OBSV E&M: 37783 Observation care discharge
--- NOTE | 2021-08-16 15:13 | PHA.DC.MR ---
Pharmacy Service has performed discharge medication reconciliation for this patient. The patient's discharge medication list was reviewed for discrepancies and discrepancies were resolved. Home Medications acetaminophen 500 mg PO Q6H PRN PRN 03/29/16 aspirin 81 mg PO DINNER 03/29/16 atorvastatin 5 mg PO QODAY 03/29/16 calcium citrate-vitamin D3 2 tab PO BID 03/29/16 cyclosporine 1 drp EACH EYE BID 03/29/16 flaxseed oil 1,000 mg PO DAILY 03/29/16 hydroxychloroquine 200 mg PO DAILYCM 03/29/16 melatonin 3 mg PO QHS 03/29/16 pilocarpine HCl 5 mg PO TID 03/29/16 polyethylene glycol 3350 17 gm PO DAILY PRN PRN 03/29/16 pramipexole 0.125 mg PO 1530,1800,2000,2200 03/29/16 oxycodone-acetaminophen 0.5 tab PO BID 09/19/16 Tumeric 500 mg PO DAILY 09/27/18 clonazepam 0.25 mg PO QHS 09/27/18 fluticasone propionate 2 spry NASAL DAILY 09/27/18 magnesium oxide 500 mg PO QHS 09/27/18 multivitamin 1 tab PO DAILY 09/27/18 peg 400-propylene glycol 30 ml OP Q6H 09/27/18 venlafaxine 75 mg PO DAILY 09/27/18 vitamin B complex 1 tab PO DAILY 09/27/18 wheat dextrin 5 ml PO DAILY 09/27/18 white petrolatum-mineral oil 3.5 gm OP DAILY 09/27/18 Lactobacill 46-B.animal-inulin 1 ea PO DAILY 06/25/19 omeprazole 20 mg PO BID 06/25/19 ondansetron HCl 4 mg PO Q12H PRN PRN 06/25/19 Systane (PF) 1 drp EACH EYE PRN PRN 08/16/21 pregabalin [Lyrica] 25 mg PO 4X/DAY 08/16/21
== END 2021-08-16 14:52 | disposition home or self-care (01) ==
LOC: ED 22:01 → PCU 08-16 07:09
PROVIDERS: Admitting Provider Hospitalist; Emergency Provider Emergency Medicine; PCP Internal Medicine; Visit Provider Internal Medicine
DX: I63.9 Cerebral infarction, unspecified (principal); R07.89 Other chest pain; R27.8 Other lack of coordination; M35.00 Sjogren syndrome, unspecified; E78.5 Hyperlipidemia, unspecified; K50.90 Crohn's disease, unspecified, without complications; K21.9 Gastro-esophageal reflux disease without esophagitis; M19.90 Unspecified osteoarthritis, unspecified site; M79.7 Fibromyalgia; I73.00 Raynaud's syndrome without gangrene; R29.701 NIHSS score 1; K52.832 Lymphocytic colitis; G25.81 Restless legs syndrome; M35.2 Behcet's disease; I48.91 Unspecified atrial fibrillation; F41.9 Anxiety disorder, unspecified; F32.A Depression, unspecified; Z79.899 Other long term (current) drug therapy; Z79.82 Long term (current) use of aspirin; Z79.51 Long term (current) use of inhaled steroids; Z85.820 Personal history of malignant melanoma of skin
CPT/HCPCS: 36415; 70450; 70544; 70547; 70551; 71045; 80048; 80061; 81001; 82962; 83036; 84484; 85025; 85610; 85730; 92610; 93005; 93306; 94762; 96374; 96376; 97161; 99218; 99285; A4216; G0378

== ENCOUNTER 2021-11-04 09:22 | Day surgery (SDC) | payer MEDICARE, BC, SELFPAY ==
[2021-11-04 09:59] VITALS: BP 140/72; PULSE 76; RESP 16; TEMP 37.2; O2SAT 99; BMI 23.1
[2021-11-04] MEDS: Lactated Ringers 1,000 ML 15 ML IV (10:12)
--- NOTE | 2021-11-04 10:45 | EGD_PTH ---
PATIENT: MICHAEL VALENZUELA LOC: EN U#:[id number] AGE/SX: 86/F ROOM: RE11/04/[address]: Dr. Benjamin Hoyt DO : 1935 BED: DIS: 11/04/2021 SPEC #: [id number] RECD: 11/04/21 15:03 STATUS: AUGUSTO WAGNER #: [id number] ENRIQUE: 11/04/21 10:[address]: Benjamin Hoyt DEPT: SURGICAL PATHOLOGY RECD BY: Radha Huizar ENTERED: 11/05/21 09:38 SP TYPE: EGD BIOPSY [place] DR: Dr. Leatha Kincaid MD Tissues: A - Stomach, NOS B - Duodenum, NOS Procedures: Special Stain Group II Surgery Specimen Level IV Alcian Blue/PAS (control) HEADER OPERATION: EGD ([facility] [place]) PRE-OP DIAGNOSIS: Colitis, constipation, GERD, dysphagia TISSUE SUBMITTED: A ? Gastroesophageal junction biopsy, B ? Duodenum biopsy MICROSCOPIC DIAGNOSIS A. Gastroesophageal junction biopsy: Fragments of gastric mucosa with chronic inflammation. Intestinal metaplasia (goblet cell metaplasia) not identified. See comment. B. Duodenum, biopsy: Fragments of duodenal mucosa, no pathologic diagnosis. MAJO:radha 11/06/2021 COMMENT A. Alcian blue/PAS stain with matched control is used in the evaluation of the specimen. MICROSCOPIC DESCRIPTION Slides are reviewed. GROSS DESCRIPTION A - Received in fixative is one container labeled with the patient's name and designated GE junction biopsy. The specimen consists of two irregular fragments of light rosa soft tissue that in aggregate measure 0.6 x 0.3 x 0.1 cm. The specimen is totally submitted in one cassette. B - Received in fixative is one container labeled with the patient's name and designated duodenum biopsy. The specimen consists of two irregular fragments of light rosa soft tissue that in aggregate measure 0.3 x 0.3 x 0.1 cm and 0.1 cm in greatest dimension. The specimen is totally submitted in one cassette. / MAJO:radha 11/05/2021 TC:3 CPT: 19306 x2, 23015
--- NOTE | 2021-11-04 11:05 | HP.PCM_ITS ---
History and Physical Date of Admission: 11/04/21 85 F who presents to the office today To establish care with our practice. She has a past medical history of esophageal dysphagia secondary to mild the hernia and Schatzki's ring. 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 She also has a history of mild gastritis treated with PPI therapy and duodenitis. Her last upper endoscopy had shown esophagitis gastritis without duodenitis. She has been on omeprazole therapy for multiple years. She has been on other antisecretory therapies and other antiacid therapies in the past. She finds it very difficult to get all foods medicines. She is having esophageal dysphagia at this time. Her last upper endoscopy she did undergo esophageal dilation. She says that it did help significantly but things are starting to become more difficult to swallow. She also has a complicated past medical history of adenomatous polyps, diverticulosis complicated by diverticulitis and abscess formation. This was treated with conservative therapy. She is struggles with chronic constipation. She takes Citrucel Thursday and MiraLAX Thursday and Thursday. She still does not have complete evacuation with that regimen and tends to be constipated. She has been on other regimens but this has been the most successful 1 thus far. She is not having any bleeding. As far she knows she does not have any problems with hemorrhoids. She was on budesonide for a year and a half for a nonspecific colitis. There was thought to be possible Crohn's disease, however that was never proven. She is not on anti-inflammatories for the colon at this time. ROS Const Constitutional: No anorexia, fatigue, fever(s), weight change or sleep problems Eyes Eyes: No change in vision ENT ENT: No abnormal hearing, difficulty swallowing, mouth lesions, tongue swelling or throat swelling Resp Respiratory: No cough or shortness of breath Cardio Cardiology: No chest pain at rest, chest pain with exertion, shortness of breath or dyspnea on exertion Gastro GI: No difficulty swallowing Genitourinary-Female: No difficulty urinating or burning urination Musc Musculoskeletal: No joint pain, joint swelling, muscle weakness or decreased muscle mass Skin Skin: No hair loss in leg, yellowing of the eye, itchy eyes, rash, skin ulcer or skin swelling Neuro Neurology: No abnormal hearing, abnormal movements, confusion, unsteady gait/balance or memory loss Psych Psychiatric: No anxiety, No confusion and No memory loss Endo Endocrine: No fatigue or weight change Aller/Imm Allergy/Immunologic: No itchy eyes, throat swelling or tongue swelling Tonio/Lymp Hematologic/Lymphatic: No easy bleeding, easy bruising or enlarged lymph nodes Exam Const General: cooperative and comfortable Nutritional Appearance: average body habitus and well nourished HENMT Head: normal to inspection Ears: hearing grossly normal bilaterally Nose: external nose normal Face and sinus: normal facial exam Mouth: oral mucosae normal Throat: posterior oropharynx normal Eyes General: appearance normal, both eyes and all related structures Neck Neck: normal visual inspection Chest Chest palpation & inspection: normal inspection of the chest and normal palpation of entire chest wall Resp Effort & Inspection: normal respiratory effort Auscultation: Bilateral: Clear to Auscultation Cardio Palpation: normal PMI Rate: regular rate Rhythm: regular rhythm GI Inspection: normal to inspection Auscultation: normal bowel sounds Percussion: normal to percussion Palpation: no hepatosplenomegaly Skin General: no rashes or lesions noted Neuro General: patient alert Extrem General: normal to inspection Psych Affect: normal affect Quality Reporting Tobacco Screening ([facility] 138) Smoking Status: Never smoker Assessment and Plan Assessment and Plan (1) Colitis: Status: Chronic Comment: micro lymphocytic colitis Plan: Lymphocytic colitis. At this time she is not having any diarrhea as she did previously. She is slightly constipated. I will institute a probiotic for her in order to improve her bowel regimen and restore good colonic health. (2) Constipation: Status: Acute Plan: Chronic leading to diverticular disease. I will not change her MiraLAX and Citrucel regimen until I see how she responds to provider. (3) GERD (gastroesophageal reflux disease): Status: Acute Plan: She will continue omeprazole for now. We will add a digestive enzyme with each meal. Hopefully this will help her get off of omeprazole therapy. (4) Dysphagia: Status: Acute Plan: She will undergo evaluation of the upper GI tract. We will also possibly perform biopsies in the form of esophageal dilation. She was explained alternatives, risk, benefits including extended bleeding, infection, sepsis, perforation, need for emergent . She will have an ASA of 3. I have re-examined the patient. There are no clinical changes since date of exam.
[2021-11-04 11:40] VITALS: BP 114/60; BP 140/72; PULSE 77; RESP 16; TEMP 37.2; O2SAT 96
--- NOTE | 2021-11-04 11:43 | OP.EGD_ITS ---
Patient Name: Feli Molina Procedure Date: 11/04/2021 11:09 AM Date of : 1935 Age: 86 Procedure: Upper GI endoscopy Indications: Dysphagia Providers: Benjamin Hoyt DO Medicines: See the Anesthesia note for documentation of the administered medications Patient Profile: This is an 86 year old female. Refer to note in patient chart for documentation of history and physical. Patient has symptoms of dysphagia with both liquids and solids. Complications: No immediate complications. Procedure: Pre-Anesthesia Assessment: - Prior to the procedure, a History and Physical was performed, and patient medications and allergies were reviewed. The patient is competent. The risks and benefits of the procedure and the sedation options and risks were discussed with the patient. All questions were answered and informed consent was obtained. Patient identification and proposed procedure were verified by the physician in the pre-procedure area. Mental Status Examination: alert and oriented. Airway Examination: normal oropharyngeal airway and neck mobility. Respiratory Examination: clear to auscultation. CV Examination: normal. Prophylactic Antibiotics: The patient does not require prophylactic antibiotics. Prior Anticoagulants: The patient has taken no previous anticoagulant or antiplatelet agents. ASA Grade Assessment: II - A patient with mild systemic disease. After reviewing the risks and benefits, the patient was deemed in satisfactory condition to undergo the procedure. The anesthesia plan was to use moderate sedation / analgesia (conscious sedation). Immediately prior to administration of medications, the patient was re-assessed for adequacy to receive sedatives. The heart rate, respiratory rate, oxygen saturations, blood pressure, adequacy of pulmonary ventilation, and response to care were monitored throughout the procedure. The physical status of the patient was re-assessed after the procedure. After obtaining informed consent, the endoscope was passed under direct vision. Throughout the procedure, the patient's blood pressure, pulse, and oxygen saturations were monitored continuously. The gastroscope was introduced through the mouth, and advanced to the second part of duodenum. The upper GI endoscopy was accomplished without difficulty. The patient tolerated the procedure well. Moderate Sedation: Moderate (conscious) sedation was administered by the endoscopy nurse and supervised by the endoscopist. The patient's oxygen saturation, heart rate, blood pressure and response to care were monitored. Total physician intraservice time was 15 minutes. Scope In: 11:27:26 AM Scope Out: 11:35:57 AM Total Procedure Duration Time 0 hours 8 minutes 31 seconds Findings: Abnormal motility was noted in the esophagus. The cricopharyngeus was normal. There is spasticity of the esophageal body. The distal esophagus/lower esophageal sphincter is spastic, but gives up passage to the endoscope. Tertiary peristaltic waves are noted. A moderate Schatzki ring was found in the lower third of the esophagus. A guidewire was placed and the scope was withdrawn. Dilation was performed with a Savary dilator with no resistance at 51 Fr. The dilation site was examined following endoscope reinsertion and showed moderate improvement in luminal narrowing. Estimated blood loss was minimal. Multiple 6 mm sessile polyps with no bleeding and no stigmata of recent bleeding were found in the cardia. A single 5 mm sessile polyp with no stigmata of recent bleeding was found at the gastroesophageal junction. Biopsies were taken with a cold forceps for histology. Verification of patient identification for the specimen was done. Estimated blood loss was minimal. Localized mild inflammation characterized by congestion (edema) was found in the duodenal bulb. Biopsies were taken with a cold forceps for histology. Verification of patient identification for the specimen was done. Estimated blood loss was minimal. Impression: - Abnormal esophageal motility, suspicious for esophageal spasm. - Moderate Schatzki ring. Dilated. - Multiple gastric polyps. - A single gastroesophageal junction polyp. Biopsied. - Duodenitis. Biopsied. Recommendation: - Discharge patient to home. - Resume previous diet. - Continue present medications. - Await pathology results. Procedure Code(s): --- Professional --- 20825, Esophagogastroduodenoscopy, flexible, transoral; with insertion of guide wire followed by passage of dilator(s) through esophagus over guide wire 53428, 59, Esophagogastroduodenoscopy, flexible, transoral; with biopsy, single or multiple 83950, 59, Moderate sedation services provided by the same physician or other qualified health primary care provider performing the diagnostic or therapeutic service that the sedation supports, requiring the presence of an independent trained observer to assist in the monitoring of the patient's level of consciousness and physiological status; initial 15 minutes of intraservice time, patient age 5 years or older CPT copyright 2017 [employer]. All rights reserved. The codes documented in this report are preliminary and upon product promoter retail pet review may be revised to meet current compliance requirements. Benjamin Hoyt DO 11/04/2021 11:42:45 AM This report has been signed electronically. Number of Addenda: 1 Note Initiated On: 11/04/2021 11:09 AM Addendum Number: 1 Addendum Date: 05/26/2022 6:37:13 AM MAC was used for sedation during this procedure. Benjamin Hoyt DO 05/26/2022 6:37:19 AM This report has been signed electronically.
--- NOTE | 2021-11-04 11:44 | OP.CCLET_ITS ---
05/26/2022 Leatha Kincaid [address] [place] [address] Re : Upper GI endoscopy procedure for Feli Molina Dear Dr. Kincaid This procedure was performed on Thursday, November 04, 2021. My impressions and recommendations are as follows: Impressions : - Abnormal esophageal motility, suspicious for esophageal spasm. - Moderate Schatzki ring. Dilated. - Multiple gastric polyps. - A single gastroesophageal junction polyp. Biopsied. - Duodenitis. Biopsied. Recommendations : - Discharge patient to home. - Resume previous diet. - Continue present medications. - Await pathology results. My findings are described in the full procedure note, which is enclosed. If I can be of further assistance, please feel free to contact me at . Sincerely, Benjamin Hyot, 11/04/2021 11:42:45 AM This report has been signed electronically.
[2021-11-04 11:45] VITALS: BP 107/64; BP 140/72; PULSE 77; RESP 16; O2SAT 98
[2021-11-04 11:50] VITALS: BP 113/61; BP 140/72; PULSE 76; RESP 16; O2SAT 98
[2021-11-04 11:57] VITALS: BP 123/81; BP 140/72; PULSE 74; RESP 16; TEMP 37.1; O2SAT 100
[2021-11-04 12:19] VITALS: BP 140/72
== END 2021-11-04 23:59 | disposition home or self-care (01) ==
LOC: EN 09:26 → AC 09:28
PROVIDERS: PCP Internal Medicine; Referring Provider Internal Medicine; Visit Provider Internal Medicine Gastroenterology
PROC: 0DJ08ZZ Inspection of Upper Intestinal Tract, Via Natural or Artificial Opening Endoscopic (ICD-10-PCS; CPT 43235; principal; 2021-11-04 10:40)
DX: K22.2 Esophageal obstruction (principal); K31.7 Polyp of stomach and duodenum; R13.10 Dysphagia, unspecified; G47.30 Sleep apnea, unspecified; K21.9 Gastro-esophageal reflux disease without esophagitis; E78.00 Pure hypercholesterolemia, unspecified; M19.90 Unspecified osteoarthritis, unspecified site; Z86.73 Personal history of transient ischemic attack (TIA), and cerebral infarction without residual deficits; Z79.82 Long term (current) use of aspirin; Z79.899 Other long term (current) drug therapy
CPT/HCPCS: 43248; 43239; 88305; 88313; J7120; C1769; J2405

== ENCOUNTER 2021-11-18 14:37 | Outpatient (CLI) | payer MEDICARE, BC, SELFPAY ==
[2021-11-18 14:43] LABS: Bacteria 0 SEEN /hpf (None Seen); Mucous, Urine 0 SEEN /hpf (<or=2+); Red Blood Cells-Urine 0 SEEN /hpf (0-5); Squamous Epithelial Cells - UA 0 SEEN /hpf (5-10); White Blood Cells 0 SEEN /hpf (0-5)
--- NOTE | 2021-11-18 15:16 | RAD_ITS ---
HISTORY: abdominal pain EXAMINATION/TECHNIQUE: XR Abdomen W/ Decub and/or Erect Views: Flat and upright frontal views of abdomen COMPARISON: CT abdomen and pelvis from 10/07/18 FINDINGS: Prominent colonic fecal load. No significant bowel dilatation to suggest obstruction. No free abdominal air demonstrated. Unremarkable lung bases. Cholecystectomy clips noted. Skeletal degenerative changes with thoracolumbar dextroscoliotic curvature. RAD/Abd Inc Decub and/or Erect IMPRESSION: Probable constipation. at 0440 Reported and signed by: Almas Camarillo MD Electronically Signed: Almas Camarillo MD at 4:39 EDT ,
[2021-11-18 15:33] LABS: Color, Urine Yellow (Yellow); Glucose, Dipstick Normal (Normal); Ketone-Dipstick Negative (Negative); Leukocyte Esterase-Dipstick Negative /ul (Negative); Nitrite-Dipstick Negative (Negative); Occult Blood-Urine Negative /ul (Negative); Protein-Dipstick Negative (Negative); Urine Bilirubin Dipstick Negative (Negative); Urine Clarity Clear (Clear); Urine Urobilinogen Normal (Normal)
[2021-11-18 15:37] LABS: Absolute Lymphocyte Count 1.49 X10^3/uL (0.83-4.51); Absolute Neutrophil Count 4.6 X10^3/uL (2.0-7.7); Basophil# 0.02 X10^3/uL; Basophil% 0.3 % (0-1); Eosinophil# 0.34 X10^3/uL; Eosinophils% 4.8 % (0-5); Hemoglobin 12.7 g/dL (12.0-15.0); Lymphocyte # 1.49 X10^3/ul (0.83-4.51); Lymphocyte % 20.9 % (19-41); Mean Corp Hgb Conc 31.8 g/dL (32-36); Mean Corpuscular Hgb 27.4 pg (27.0-32.0); Mean Corpuscular Volume 86.4 fL (81-99); Mean Platelet Vol. 10.3 fl (6.2-12.0); Monocyte# 0.67 X10^3/uL; Monocyte% 9.4 % (0-10); NRBC Flagged by Analyzer 0 % (0-5); Neutrophil # 4.58 X10^3/uL (2.7-7.7); Neutrophil % 64.3 % (47-70); Platelet Count 273 K/mm3 (150-450); RBC Distribution Width CV 14.6 % (11.6-14.6); RBC Distribution Width SD 46.6 fl (35.1-43.9); Red Blood Count 4.63 M/mm3 (4.2-5.4); White Blood Count 7.1 K/mm3 (4.4-11.0)
[2021-11-18 15:46] LABS: Erythrocyte Sedimentation Rate 25 mm/hr (0-30)
[2021-11-18 16:18] LABS: ALB/GLOB Ratio 1.1 RATIO (0.9-2.4); AST(SGOT) 38 U/L (15-37); Alanine Aminotransfer ALT/SGPT 31 U/L (13-56); Albumin, Serum 3.9 g/dL (3.2-5.0); Alkaline Phosphatase 98 U/L (45-117); Anion Gap 1 (5-15); BUN 13 mg/dL (7-18); BUN/Creat Ratio 18.4 RATIO (10-20); CRP < 2.90 mg/L (0.0-3.0); Chloride 105 mmol/L (98-107); Creatinine, Serum 0.71 mg/dL (0.55-1.02); EST Glomerular Filtration Rate 83 mL/min (>60); Est Glom Filt Rate - Afr Amer 101 mL/min (>60); Globulin 3.5 g/dL (2.2-4.2); Glucose 87 mg/dL (74-106); Potassium 3.9 mmol/L (3.5-5.1); Protein, Total 7.4 g/dL (6.4-8.2); Sodium Level 139 mmol/L (136-145)
[2021-11-20 14:11] LABS: Endomysial Antibody IgA Negative (Negative)
[2021-11-20 16:14] LABS: Immunoglobulin A 264 mg/dL (64-422); t-Transglutaminase IgA <2 U/mL (0-3)
== END 2021-11-18 23:59 | disposition home or self-care (01) ==
PROVIDERS: PCP Internal Medicine; Referring Provider Internal Medicine Gastroenterology; Visit Provider Internal Medicine Gastroenterology
DX: M35.00 Sjogren syndrome, unspecified (principal); K59.00 Constipation, unspecified; F41.8 Other specified anxiety disorders; R10.9 Unspecified abdominal pain
CPT/HCPCS: 36415; 74019; 80053; 81001; 82784; 83516; 85025; 85652; 86140; 86255

== ENCOUNTER 2022-01-09 16:01 | Emergency (ER) | payer MEDICARE, BC, SELFPAY ==
[2022-01-09 16:02] VITALS: BP 153/62; PULSE 96; RESP 12; TEMP 36.2; O2SAT 95; BMI 24.0
[2022-01-09 16:25] VITALS: BP 161/79; PULSE 92; RESP 16; O2SAT 97
--- NOTE | 2022-01-09 16:51 | CT_ITS ---
STUDY: CT Abdomen And Pelvis W/O Contrast Injection 01/09/2022 6:45 PM REASON FOR EXAM: Female, 86 years old. Abdominal pain LLQ pain Individualized dose optimization techniques were used for this CT. COMPARISON: 10.07.18 TECHNIQUE: CT Abdomen And Pelvis W/O Contrast Injection FINDINGS: The visualized lung bases are unremarkable. The visualized portions of the heart are within normal limits. Normal liver. There are surgical clips in the gallbladder fossa consistent with a prior cholecystectomy. There are multiple benign calcified granulomata of the spleen. Normal pancreas. Normal bilateral adrenal glands. Non obstructive 2 mm left renal parenchymal stones. Non obstructive 2 mm left renal parenchymal stones. Normal visualized stomach. Normal small intestine. There are multiple colonic diverticula consistent with diverticulosis. There is non-visualization of the appendix. There are calcifications of the abdominal aorta. This is consistent for atherosclerotic disease. There is NO abdominal aortic aneurysm. Vascular workup can be obtained based on clinical correlation. Normal inferior vena cava. Subcentimeter mesenteric lymph nodes. Normal urinary bladder. There is absence of the uterus consistent with a prior hysterectomy. There is an umbilical hernia containing fat. There are diffuse degenerative changes of the visualized lumbar spine. There are bilateral pars articularis defects at L5-S1. There is a Grade 1 anterolisthesis of L5 on S1. There is bilateral neural foraminal stenosis at L4-5 and L5-S1. CT/Abdomen/Pelvis without Cont IMPRESSION: (NOT LISTED IN ORDER OF SIGNIFICANCE) There is bilateral neural foraminal stenosis at L4-5 and L5-S1. There are multiple colonic diverticula consistent with diverticulosis. Other findings as above. Electronically Signed: Fausto Chin MD at 18:49 EDT ,
--- NOTE | 2022-01-09 16:52 | EDS_ITS ---
HPI History of Present Illness Chief Complaint: Abd Pain Informant: patient Narrative Narrative: 36-year-old female presenting to the emergency department with abdominal pain. Patient states that the abdominal pain has been present for the past several days. She states it reminds her of when she had diverticulitis in the past. She went to see her pain management doctor today and she mentioned that the abdomen was hurting more than her back. Is recommended that she come to emergency. So the patient called her cash applications representative office but they could not see her today so she came to the ED. She has no change in her appetite or ability to eat. No changes in stool or urinary habits. She points to the left lower quadrant as the area that hurts but states that it hurts all over when you push. PFSH PFSH Medical History Anemia Anxiety Arthritis Atrial fibrillation Back pain Behcet's disease Bleeding ulcer Blister Cancer Cardiology follow-up encounter Cataract Chronic GERD Constipation Crohns disease Depression Difficulty chewing Diverticulosis Exanthematous disorder Eye cancer Fibromyalgia Gastric reflux GERD (gastroesophageal reflux disease) Glossodynia H/O Sjogren's disease High cholesterol History of diverticulitis History of echocardiogram History of IBS History of pain when walking History of pneumonia History of stress test History of ulceration Hyperlipidemia Injury of back Injury of head and neck lap repair bladder injury Low back pain Lymphocytic colitis Meningitis Migraine headache Non-smoker Post-menopausal Raynaud's disease Sleep apnea TIA (transient ischemic attack) Ulcer of mouth Wears glasses Wears partial dentures Home Medications acetaminophen 500 mg PO Q6H PRN PRN 03/29/16 [History Last Taken 09/26/18] aspirin 81 mg PO DINNER 03/29/16 [History Last Taken 10/31/21] atorvastatin 5 mg PO QODAY 03/29/16 [History Last Taken 09/26/18] calcium citrate-vitamin D3 2 tab PO BID 03/29/16 [History Last Taken 09/27/18] cyclosporine [Restasis] 1 drp EACH EYE BID 03/29/16 [History Last Taken 09/27/18] flaxseed oil 1,000 mg PO DAILY 03/29/16 [History Last Taken 09/27/18] hydroxychloroquine 200 mg PO DAILYCM 03/29/16 [History Last Taken 09/26/18] melatonin 3 mg PO QHS 03/29/16 [History Last Taken 09/26/18] pilocarpine HCl 5 mg PO TID 03/29/16 [History Last Taken 09/27/18] polyethylene glycol 3350 17 gm PO DAILY PRN PRN 03/29/16 [History Last Taken 09/27/18] pramipexole [Mirapex] 0.125 mg PO .1900, 2200 03/29/16 [History Last Taken 09/26] oxycodone-acetaminophen [Percocet] 0.5 tab PO BID 09/19/16 [History Last Taken 09/26/18] Tumeric 500 mg PO DAILY 09/27/18 [History Last Taken 09/26/18] fluticasone propionate 2 spry NASAL DAILY 09/27/18 [History Last Taken 09/24/18] magnesium oxide 500 mg PO QHS 09/27/18 [History Last Taken 09/26/18] multivitamin 1 tab PO DAILY 09/27/18 [History Last Taken 09/26/18] peg 400-propylene glycol 30 ml OP Q6H PRN 09/27/18 [History Last Taken 09/27/18] venlafaxine 75 mg PO DAILY 09/27/18 [History Last Taken 09/27/18] vitamin B complex 1 tab PO DAILY 09/27/18 [History Last Taken 09/26/18] white petrolatum-mineral oil [Systane Nighttime] 3.5 gm OP DAILY 09/27/18 [History Last Taken 09/26/18] omeprazole 20 mg PO BID 06/25/19 [History Last Taken Unknown] ondansetron HCl 4 mg PO Q12H PRN PRN 06/25/19 [History Last Taken Unknown] Systane (PF) 1 drp EACH EYE PRN PRN 08/16/21 [History Last Taken Unknown] pregabalin [Lyrica] 25 mg PO 5X/DAY 08/16/21 [History Last Taken Unknown] cholecalciferol (vitamin D3) [Vitamin D3] 25 mcg PO DAILY 10/31/21 [History Last Taken Unknown] methylcellulose (with sugar) [Citrucel Fiber Laxative] 1 ea PO QODAY 10/31/21 [History Last Taken Unknown] zinc 50 mg PO DAILY 10/31/21 [History Last Taken Unknown] L. acidophilus 5 mg-digestive enzymes combo no.5 250 mg capsule 1 cap PO TID #30 cap 11/18/21 [Rx Last Taken Unknown] Allergy/AdvReac Type Severity Reaction Status Date / Time difluprednate [From Durezol] Allergy Other Verified 01/09/22 16:02 methylprednisolone Allergy Rash Verified 01/09/22 16:02 Penicillins Allergy Unknown Verified 01/09/22 16:02 prednisolone Allergy Swelling Verified 01/09/22 16:02 citalopram AdvReac Diarrhea Verified 01/09/22 16:02 codeine AdvReac Nausea Verified 01/09/22 16:02 dexamethasone AdvReac Other Verified 01/09/22 16:02 duloxetine HCl AdvReac Diarrhea Verified 01/09/22 16:02 [From Cymbalta] Iodinated Contrast Media AdvReac unknown Verified 01/09/22 16:02 [Iodinated Contrast- Oral and IV Dye] lamotrigine [From Lamictal] AdvReac DRUGGED Verified 01/09/22 16:02 FEELING metoclopramide HCl AdvReac INVOLUNTARY Verified 01/09/22 16:02 [From Reglan] BODY MOVEMENTS mirabegron [From Myrbetriq] AdvReac Other Verified 01/09/22 16:02 promethazine HCl AdvReac INVOLUNTARY Verified 01/09/22 16:02 [From Phenergan] BODY MOVEMENTS sertraline HCl [From Zoloft] AdvReac Diarrhea Verified 01/09/22 16:02 sulfamethoxazole AdvReac FELT Verified 01/09/22 16:02 [From Bactrim] WEIRD, HEAD NUMB, FELT DRUGGED, SHAKEY, NAUSEATED trimethoprim [From Bactrim] AdvReac FELT Verified 01/09/22 16:02 WEIRD, HEAD NUMB, FELT DRUGGED, SHAKEY, NAUSEATED Family History Other Arthritis Asthma Breast cancer CVA (cerebral vascular accident) Diabetes Heart disease Hyperlipidemia Hypertension Osteoporosis Ulcer auto immune disease Surgical History H/O adenoidectomy H/O colonoscopy H/O cystoscopy H/O dilation and curettage H/O endoscopy H/O vaginal hysterectomy History of cholecystectomy History of tonsillectomy Hx of appendectomy Hx of bilateral cataract extraction Hx of eye surgery Social History household members: none Smoking Status: Never smoker alcohol intake: never ROS ROS ED Constitutional Constitutional ED: Denies chills, fever(s) or weight loss Eyes Eyes: Denies change in vision or diplopia ENT ENT ED: Denies ear pain, rhinorrhea or sore throat Cardiovascular Cardiovascular: Denies chest pain, orthopnea, palpitations or racing heartbeat Respiratory/Chest Respiratory/Chest: Denies cough, dyspnea or orthopnea Gastrointestinal Gastrointestinal: Reports abdominal pain; Denies diarrhea, nausea or vomiting Genitourinary Genitourinary ED: Denies dysuria, hematuria or urinary frequency Musculoskeletal Musculoskeletal: Denies arthralgias or myalgias Integumentary Denies abscess or rash Neurologic Neurologic: Denies headache(s) or weakness Psychiatric Psychiatric: Denies anxiety, depression, suicidal ideation or suicidal thoughts Endocrine Endocrinology: Denies polydipsia, polyphagia or polyuria Allergic/Immunologic Allergic/Immunologic ED: Denies mouth swelling, tongue swelling or urticaria EXAM Physical Exam Const Vital Signs: 01/09/22 16:02 01/09/22 16:25 Temperature 97.1 F L Temperature Source Temporal Pulse Rate 96 92 Respiratory Rate 12 16 Blood Pressure 153/62 H 161/79 H Blood Pressure Mean 92 106 Pulse Ox 95 97 Oxygen Delivery Method Room Air Room Air Positive well nourished and well developed General Appearance ED: well developed HEENT Reports normocephalic, head/scalp atraumatic, TM's clear and moist mucous membranes Negative for trauma Tympanic Membrane ED: Yes TM's clear Eyes PERRL and EOMs intact bilaterally Neck no lymphadenopathy, supple and no JVD Resp normal respiratory effort and clear to auscultation bilaterally Cardio regular rate, regular rhythm and no murmurs GI non-distended Auscultation: normoactive bowel sounds Palpation: soft and tender other (Diffuse tenderness to palpation); Negative for guarding or rebound tenderness present Back/Spine no CVA tenderness and normal ROM Extremity normal to inspection General Extremety ED: Negative for edema General Extremity: Negative for edema Neuro oriented x3 and CN's II-XII intact bilaterally Sensorium / Orientation: alert Motor Exam: strength 5/5 throughout Psych mental status grossly normal Mood & Affect: Negative for depressed or tearful Skin no rashes or lesions noted and no wounds MDM MDM MDM Narrative Medical decision making narrative: White count is normal at 8.4. CMP is normal lipase is normal at [address] of the abdomen pelvis does not demonstrate any findings to explain the left lower quadrant pain. At this point patient will be discharged home. If her symptoms continue or worsen she will need a repeat examination. Patient knows to return to the emergency department or follow-up with her doctors. Lab Data Attestation: I reviewed the patient's lab results. Labs: Laboratory Results - last 24 hr 01/09/22 01/09/22 01/09/22 17:35 17:50 17:50 WBC 8.4 RBC 5.02 Hgb 13.7 Hct 43.2 MCV 86.1 MCH 27.3 MCHC 31.7 L RDW Std Deviation 43.8 RDW Coeff of Celine 13.9 Plt Count 294 MPV 9.7 Immature Gran % (Auto) 0.400 Neut % (Auto) 68.7 Lymph % (Auto) 20.7 Edwards % (Auto) 8.7 Eos % (Auto) 1.4 Baso % (Auto) 0.1 Absolute Neuts (auto) 5.8 Absolute Lymphs (auto) 1.74 Nucleated RBC % 0 Sodium 141 Potassium 3.9 Chloride 103 Carbon Dioxide 32.0 Anion Gap 6 BUN 14 Creatinine 0.75 Estim Creat Clear Calc 34.43 Est GFR (MDRD) Af Amer 94 Est GFR (MDRD) Non-Af 78 BUN/Creatinine Ratio 18.7 Glucose 99 Calcium 10.0 Total Bilirubin 0.20 AST 36 ALT 37 Alkaline Phosphatase 106 Total Protein 8.0 Albumin 4.1 Globulin 3.9 Albumin/Globulin Ratio 1.1 Lipase 138 Urine Color Straw Urine Clarity Clear Urine pH 7.0 Ur Specific [place] 1.005 Urine Protein Negative Urine Glucose (UA) Normal Urine Ketones Negative Urine Occult Blood 10 H Urine Nitrite Negative Urine Bilirubin Negative Urine Urobilinogen Normal Ur Leukocyte Esterase Negative Urine RBC 0 SEEN Urine WBC 0 SEEN Ur Squamous Epith Cells 0 SEEN Urine Bacteria 0 SEEN Urine Mucus 0 SEEN Radiography Diagnostic Testing: Clinical Impression(s) from Imaging Studies Abdomen/Pelvis CT 01/09/22 16:51 IMPRESSION: (NOT LISTED IN ORDER OF SIGNIFICANCE) There is bilateral neural foraminal stenosis at L4-5 and L5-S1. There are multiple colonic diverticula consistent with diverticulosis. Other findings as above. Electronically Signed: Fausto Chin MD at 18:49 EDT , Discharge Plan Triage Chief Complaint: Abd Pain ED Provider: Chandu Islas Dx/Rx/DC Orders Clinical Impression: Abdominal pain, acute Instructions: Abdominal Pain Prescriptions: No Action Probiotic-Digestive Enzymes 5-250 mg capsule 1 cap PO TID Qty: 30 RF: 0 pilocarpine HCl 5 MG tablet 5 mg PO TID RF: 0 polyethylene glycol 3350 17 GM packet 17 gm PO DAILY PRN PRN (Reason: Constipation) RF: 0 atorvastatin 10 MG tablet 5 mg PO QODAY RF: 0 melatonin 3 MG tablet 3 mg PO QHS RF: 0 aspirin 81 MG tablet,delayed release (DR/EC) 81 mg PO DINNER RF: 0 acetaminophen 500 MG tablet 500 mg PO Q6H PRN PRN (Reason: Pain) RF: 0 flaxseed oil 1,000 MG capsule 1,000 mg PO DAILY RF: 0 pramipexole [Mirapex] 0.125 MG tablet 0.125 mg PO .1899, 0 RF: 0 hydroxychloroquine 200 MG tablet 200 mg PO DAILYCM RF: 0 Restasis 1 DROP dropperette 1 drp EACH EYE BID RF: 0 calcium citrate-vitamin D3 1 EACH tablet 2 tab PO BID RF: 0 oxycodone-acetaminophen [Percocet] 1 TABLET tablet 0.5 tab PO BID RF: 0 fluticasone propionate 16 GM spray,suspension 2 spry NASAL DAILY RF: 0 magnesium oxide 250 MG tablet 500 mg PO QHS RF: 0 multivitamin 1 EACH tablet 1 tab PO DAILY RF: 0 venlafaxine 150 MG capsule,extended release 24hr 75 mg PO DAILY RF: 0 vitamin B complex 1 EACH tablet 1 tab PO DAILY RF: 0 peg 400-propylene glycol 1 DROP bottle 30 ml OP Q6H PRN (Reason: Dry Eyes) RF: 0 Systane Nighttime 3.5 GM ointment 3.5 gm OP DAILY RF: 0 Tumeric 500 mg PO DAILY RF: 0 ondansetron HCl 4 MG tablet 4 mg PO Q12H PRN PRN (Reason: Nausea) RF: 0 omeprazole 20 MG capsule,delayed release(DR/EC) 20 mg PO BID RF: 0 Systane (PF) 1 drp EACH EYE PRN PRN (Reason: Dry Eyes) RF: 0 pregabalin [Lyrica] 25 mg Capsule 25 mg PO 5X/DAY RF: 0 zinc 50 mg Tablet 50 mg PO DAILY RF: 0 cholecalciferol (vitamin D3) [Vitamin D3] 25 mcg (1,000 unit) Tablet 25 mcg PO DAILY RF: 0 Citrucel Fiber Laxative Powder In Packet 1 ea PO QODAY RF: 0 Primary Care Provider: Leatha Kincaid Referrals: Leatha Kincaid MD [Primary Care Provider] - As Needed Friend,DO Benjamin [STAFF PHYSICIAN] - Keep [facility] appointment Activity Restrictions/Additional Instructions: If your pain worsens or any concerns please come to the back to the emergency room. Disposition Disposition: Home, Self Care
[2022-01-09 17:56] LABS: Bacteria 0 SEEN /hpf (None Seen); Mucous, Urine 0 SEEN /hpf (<or=2+); Red Blood Cells-Urine 0 SEEN /hpf (0-5); Squamous Epithelial Cells - UA 0 SEEN /hpf (5-10); White Blood Cells 0 SEEN /hpf (0-5)
[2022-01-09 18:00] LABS: Absolute Lymphocyte Count 1.74 X10^3/uL (0.83-4.51); Absolute Neutrophil Count 5.8 X10^3/uL (2.0-7.7); Basophil# 0.01 X10^3/uL; Basophil% 0.1 % (0-1); Eosinophil# 0.12 X10^3/uL; Eosinophils% 1.4 % (0-5); Hematocrit 43.2 % (37-47); Hemoglobin 13.7 g/dL (12.0-15.0); Lymphocyte # 1.74 X10^3/ul (0.83-4.51); Lymphocyte % 20.7 % (19-41); Mean Corp Hgb Conc 31.7 g/dL (32-36); Mean Corpuscular Hgb 27.3 pg (27.0-32.0); Mean Corpuscular Volume 86.1 fL (81-99); Mean Platelet Vol. 9.7 fl (6.2-12.0); Monocyte# 0.73 X10^3/uL; Monocyte% 8.7 % (0-10); NRBC Flagged by Analyzer 0 % (0-5); Neutrophil # 5.79 X10^3/uL (2.7-7.7); Neutrophil % 68.7 % (47-70); Platelet Count 294 K/mm3 (150-450); RBC Distribution Width CV 13.9 % (11.6-14.6); RBC Distribution Width SD 43.8 fl (35.1-43.9); Red Blood Count 5.02 M/mm3 (4.2-5.4); White Blood Count 8.4 K/mm3 (4.4-11.0)
[2022-01-09 18:06] LABS: Color, Urine Straw (Yellow); Glucose, Dipstick Normal (Normal); Ketone-Dipstick Negative (Negative); Leukocyte Esterase-Dipstick Negative /ul (Negative); Nitrite-Dipstick Negative (Negative); Occult Blood-Urine 10 /ul (Negative); Protein-Dipstick Negative (Negative); Specific Gravity, Urine 1.005 (1.002-1.030); Urine Bilirubin Dipstick Negative (Negative); Urine Clarity Clear (Clear); Urine Urobilinogen Normal (Normal)
[2022-01-09 18:18] LABS: ALB/GLOB Ratio 1.1 RATIO (0.9-2.4); AST(SGOT) 36 U/L (15-37); Alanine Aminotransfer ALT/SGPT 37 U/L (13-56); Albumin, Serum 4.1 g/dL (3.2-5.0); Alkaline Phosphatase 106 U/L (45-117); Anion Gap 6 (5-15); BUN 14 mg/dL (7-18); BUN/Creat Ratio 18.7 RATIO (10-20); Chloride 103 mmol/L (98-107); Creatinine, Serum 0.75 mg/dL (0.55-1.02); EST Glomerular Filtration Rate 78 mL/min (>60); Est Glom Filt Rate - Afr Amer 94 mL/min (>60); Estimated Creatinine Clearance 34.43 ml/min; Globulin 3.9 g/dL (2.2-4.2); Glucose 99 mg/dL (74-106); Lipase 138 U/L (73-393); Potassium 3.9 mmol/L (3.5-5.1); Sodium Level 141 mmol/L (136-145)
[2022-01-09 19:31] VITALS: RESP 18
== END 2022-01-09 19:31 | disposition home or self-care (01) ==
PROVIDERS: Emergency Provider Emergency Medicine; PCP Internal Medicine; Visit Provider Emergency Medicine
DX: R10.32 Left lower quadrant pain (principal); I48.91 Unspecified atrial fibrillation; E78.5 Hyperlipidemia, unspecified; M19.90 Unspecified osteoarthritis, unspecified site; M79.7 Fibromyalgia; K21.9 Gastro-esophageal reflux disease without esophagitis; Z78.0 Asymptomatic menopausal state; Z86.73 Personal history of transient ischemic attack (TIA), and cerebral infarction without residual deficits; Z79.82 Long term (current) use of aspirin; Z79.899 Other long term (current) drug therapy
CPT/HCPCS: 74176; 80053; 81001; 83690; 85025; 99282; A4216

== ENCOUNTER 2022-10-15 13:40 | Emergency (ER) | payer MEDICARE, BC, SELFPAY ==
[2022-10-15 13:41] VITALS: BP 163/73; PULSE 88; RESP 16; TEMP 36.6; O2SAT 98; BMI 23.6
--- NOTE | 2022-10-15 16:04 | CT_ITS ---
STUDY: CT ABDOMEN AND PELVIS WITH CONTRAST REASON FOR EXAM: Female, 87 years old. Abdominal pain -- RADIATION DOSAGE (If Supplied By Facility): CTDIvol = ( 20.32 ) mGy, DLP = ( 751.35 ) mGycm TECHNIQUE: Transaxial images were obtained from the dome of the diaphragm to the symphysis pubis with oral contrast. IV 100mL Isovue-370 was administered. Sagittal and coronal images were reconstructed. Individualized dose optimization techniques were used for this CT. COMPARISON: January 09, 2022 FINDINGS: The visualized lung bases are unremarkable. The visualized portions of the heart are within normal limits. Normal liver. There are surgical clips in the gallbladder fossa consistent with a prior cholecystectomy. There are multiple benign calcified granulomata of the spleen. Normal pancreas. Normal bilateral adrenal glands. There is 1.3 cm cyst of the right kidney. There is 2.7 cm cyst of the left kidney. There is a small hiatal hernia. Normal small intestine. There are multiple colonic diverticula consistent with diverticulosis. There is non-visualization of the appendix. There is diffuse atherosclerotic calcification of the abdominal aorta, without a demonstrated aneurysm. Normal inferior vena cava. Normal retroperitoneum. Normal urinary bladder. There is absence of the uterus consistent with a prior hysterectomy. There is no free fluid in the abdomen or pelvis. Normal abdominal wall. There are diffuse degenerative changes of the visualized lumbar spine. CT/Abdomen/Pelvis WITH Contrast IMPRESSION: Colonic diverticulosis. No obstruction or abscess. Small hiatal hernia. Electronically Signed: Chester Daugherty MD at 18:32 EST ,
--- NOTE | 2022-10-15 16:08 | ED.VIS.GI ---
HPI HPI - GI History of Present Illness Chief Complaint: Abd Pain Narrative Narrative: 87-year-old female presenting with diffuse abdominal pain. She states that she is only had 1 bowel movement this whole month. She states he has a history of chronic constipation. She is on daily MiraLAX, lubiprostone, colestipol, Citrucel. She has a history of IBS. She states that she called Dr. Hoyt's office last week and was unable to get a hold of Dr. Hoyt but was told to take a cup of MiraLAX in 64 ounces of water and when she did this she had 4 liquidy bowel movements but no stool. She states that she did call her primary care physician who told her to drink 64 ounces of warm water. She reports no bowel movement. She has not been able to get a hold of Dr. Hoyt's office again. She complains of diffuse crampy abdominal pain. She has had some nausea but is not nauseous currently. She does have history of bowel obstruction. Previous surgeries include hysterectomy, cholecystectomy, appendectomy. PFSH PFS Medical History Anemia Anxiety Arthritis Atrial fibrillation Back pain Behcet's disease Bleeding ulcer Blister Cancer Cardiology follow-up encounter Cataract Chronic GERD Constipation Crohns disease Depression Difficulty chewing Diverticulosis Exanthematous disorder Eye cancer Fibromyalgia Gastric reflux GERD (gastroesophageal reflux disease) Glossodynia H/O Sjogren's disease High cholesterol History of diverticulitis History of echocardiogram History of IBS History of pain when walking History of pneumonia History of stress test History of ulceration Hyperlipidemia Injury of back Injury of head and neck lap repair bladder injury Low back pain Lymphocytic colitis Meningitis Migraine headache Non-smoker Post-menopausal Raynaud's disease Sleep apnea TIA (transient ischemic attack) Ulcer of mouth Wears glasses Wears partial dentures Home Medications acetaminophen 500 mg tablet 500 mg PO Q6H PRN PRN Pain 03/29/16 [History Last Taken 09/26/18] aspirin 81 mg tablet,delayed release 81 mg PO DINNER heart health 03/29/16 [History Last Taken 10/31/21] atorvastatin 10 mg tablet 5 mg PO QODAY 03/29/16 [History Last Taken 09/26/18] calcium citrate 315 mg-vitamin D3 5 mcg (200 unit) tablet 2 tab PO BID 03/29/16 [History Last Taken 09/27/18] cyclosporine 0.05 % eye drops in a dropperette (Restasis) 1 drp EACH EYE BID 03/29/16 [History Last Taken 09/27/18] flaxseed oil 1,000 mg capsule 1,000 mg PO DAILY 03/29/16 [History Last Taken 09/27/18] hydroxychloroquine 200 mg tablet 200 mg PO DAILYCM 03/29/16 [History Last Taken 09/26/18] melatonin 3 mg tablet 3 mg PO QHS 03/29/16 [History Last Taken 09/26/18] pilocarpine HCl 5 mg tablet 5 mg PO TID 03/29/16 [History Last Taken 09/27/18] polyethylene glycol 3350 17 gram oral powder packet 17 g PO DAILY PRN PRN Constipation 03/29/16 [History Last Taken 09/27/18] pramipexole 0.125 mg tablet (Mirapex) 0.125 mg PO .1900, 2200 03/29/16 [History Last Taken 09/26/18] oxycodone-acetaminophen 5 mg-325 mg tablet (Percocet) 0.5 tab PO BID 09/19/16 [History Last Taken 09/26/18] Tumeric 500 mg PO DAILY 09/27/18 [History Last Taken 09/26/18] fluticasone propionate 50 mcg/actuation nasal spray,suspension 2 spry NASAL DAILY 09/27/18 [History Last Taken 09/24/18] magnesium oxide 500 mg PO QHS 09/27/18 [History Last Taken 09/26/18] multivitamin 1 tab PO DAILY 09/27/18 [History Last Taken 09/26/18] peg 400-propylene glycol 0.4 %-0.3 % eye drops 30 ml OP Q6H PRN Dry Eyes 09/27/18 [History Last Taken 09/27/18] venlafaxine 150 mg capsule,extended release 24 hr 75 mg PO DAILY anxiety 09/27/18 [History Last Taken 09/27/18] vitamin B complex 1 tab PO DAILY 09/27/18 [History Last Taken 09/26/18] white petrolatum-mineral oil 94 %-3 % eye ointment (Systane Nighttime) 3.5 gm OP DAILY dry eye 09/27/18 [History Last Taken 09/26/18] omeprazole 20 mg capsule,delayed release 20 mg PO BID 06/25/19 [History Last Taken Unknown] ondansetron HCl 4 mg tablet 4 mg PO Q12H PRN PRN Nausea 06/25/19 [History Last Taken Unknown] Systane (PF) 1 drp EACH EYE PRN PRN Dry Eyes 08/16/21 [History Last Taken Unknown] pregabalin 25 mg capsule (Lyrica) 25 mg PO 5X/DAY 08/16/21 [History Last Taken Unknown] cholecalciferol (vitamin D3) 25 mcg (1,000 unit) tablet (Vitamin D3) 25 mcg PO DAILY 10/31/21 [History Last Taken Unknown] methylcellulose (with sugar) oral powder packet 1 ea PO QODAY 10/31/21 [History Last Taken Unknown] zinc 50 mg tablet 50 mg PO DAILY 10/31/21 [History Last Taken Unknown] L. acidophilus 5 mg-digestive enzymes combo no.5 250 mg capsule (Probiotic-Digestive Enzymes) 1 cap PO TID #30 caps 11/18/21 [Rx Last Taken Unknown] fluconazole 100 mg tablet 100 mg PO DAILY #14 tabs 04/03/22 [Rx Last Taken Unknown] colestipol 1 gram tablet See Rx Instructions .Route .COMPLEX #30 tabs 08/07/22 [Rx Last Taken Unknown] lubiprostone 8 mcg capsule (Amitiza) 8 mcg PO DAILY #30 caps 10/09/22 [Rx Last Taken Unknown] Allergy/AdvReac Type Severity Reaction Status Date / Time difluprednate [From Durezol] Allergy Other Verified 10/15/22 13:42 methylprednisolone Allergy Rash Verified 10/15/22 13:42 Penicillins Allergy Unknown Verified 10/15/22 13:42 prednisolone Allergy Swelling Verified 10/15/22 13:42 citalopram AdvReac Diarrhea Verified 10/15/22 13:42 codeine AdvReac Nausea Verified 10/15/22 13:42 dexamethasone AdvReac Other Verified 10/15/22 13:42 duloxetine HCl AdvReac Diarrhea Verified 10/15/22 13:42 [From Cymbalta] Iodinated Contrast Media AdvReac unknown Verified 10/15/22 13:42 [Iodinated Contrast- Oral and IV Dye] lamotrigine [From Lamictal] AdvReac DRUGGED Verified 10/15/22 13:42 FEELING metoclopramide HCl AdvReac INVOLUNTARY Verified 10/15/22 13:42 [From Reglan] BODY MOVEMENTS mirabegron [From Myrbetriq] AdvReac Other Verified 10/15/22 13:42 promethazine HCl AdvReac INVOLUNTARY Verified 10/15/22 13:42 [From Phenergan] BODY MOVEMENTS sertraline HCl [From Zoloft] AdvReac Diarrhea Verified 10/15/22 13:42 sulfamethoxazole AdvReac FELT Verified 10/15/22 13:42 [From Bactrim] WEIRD, HEAD NUMB, FELT DRUGGED, SHAKEY, NAUSEATED trimethoprim [From Bactrim] AdvReac FELT Verified 10/15/22 13:42 WEIRD, HEAD NUMB, FELT DRUGGED, SHAKEY, NAUSEATED Family History Other Arthritis Asthma Breast cancer CVA (cerebral vascular accident) Diabetes Heart disease Hyperlipidemia Hypertension Osteoporosis Ulcer auto immune disease Surgical History H/O adenoidectomy H/O colonoscopy H/O cystoscopy H/O dilation and curettage H/O endoscopy H/O vaginal hysterectomy History of cholecystectomy History of tonsillectomy Hx of appendectomy Hx of bilateral cataract extraction Hx of eye surgery Social History household members: none Smoking Status: Never smoker alcohol intake: never ROS ROS ED Constitutional Constitutional ED: Denies chills, fever(s) or sweats Eyes Eyes: Denies blurry vision or change in vision ENT ENT ED: Denies ear pain or sore throat Cardiovascular Cardiovascular: Denies chest pain, palpitations or racing heartbeat Respiratory/Chest Respiratory/Chest: Denies cough, dyspnea or sputum Gastrointestinal Gastrointestinal: Reports abdominal pain and nausea; Denies constipation, diarrhea or vomiting Genitourinary Genitourinary ED: Denies dysuria, hematuria or urinary frequency Musculoskeletal Musculoskeletal: Denies arthralgias, myalgias or neck pain Integumentary Denies abscess, Abrasions or rash Neurologic Neurologic: Denies headache(s), paresthesias or weakness Psychiatric Psychiatric: Denies anxiety, depression, suicidal ideation or suicidal thoughts Endocrine Endocrinology: Denies polydipsia or polyuria EXAM Physical Exam Const Vital Signs: 10/15/22 13:41 Temperature 98 F Temperature Source Temporal Pulse Rate 88 Respiratory Rate 16 Blood Pressure 163/73 H Blood Pressure Mean 103 Pulse Ox 98 Oxygen Delivery Method Room Air Positive well nourished General Appearance ED: NAD; Negative for pallor HEENT Reports moist mucous membranes normocephalic and atraumatic Resp normal respiratory effort and clear to auscultation bilaterally Auscultation: Negative for rales, rhonchi or wheezes Cardio regular rate and regular rhythm GI GI Narrative: Mildly distended but soft. No guarding or rebound Palpation: soft Back/Spine no CVA tenderness Neuro CN's II-XII intact bilaterally Psych mental status grossly normal and thought process normal Skin General Skin Exam: Negative for jaundice or pallor MDM MDM MDM Narrative Medical decision making narrative: 87-year-old female presenting with abdominal pain and constipation for a month. She reports only 1 bowel movement with normal stool. She has had some diarrhea and loose stools with her laxative use. No peritoneal signs on examination, but she does report diffuse pain. Differential at this point includes but not limited to gastritis, pancreatitis, constipation, small bowel obstruction, bowel perforation, diverticulitis, colitis vital signs are stable and she is afebrile. CBC to assess white blood cell count, hemoglobin, differential. CMP to assess liver function, renal function, electrolytes, glucose, anion gap. Lipase to assess for pancreatitis. Urinalysis to assess for evidence of infection or hematuria. CBC shows normal white blood cell count of 10.7. Hemoglobin hematocrit are stable. Platelets are normal. No left shift. CMP shows normal liver function, renal function, electrolytes are within normal limits with Potassium 3.4. Lipase Normal. Urinalysis Negative for Infection. Patient Reports That She Has an Allergy to Contrast Dye Which Is Foot Swelling 2 Days Later. She Does Not Get a Rash or Have Any Problems Breathing or Swallowing. She States She Is However Allergic to Steroids and They Will Give Her a Rash and Cause the Symptoms. Given That the Symptoms of Giving Her Steroids Would Be Worse Than Giving Her a Contrast CT We Opted to Do Benadryl [address] Scan with IV and P.O. Contrast. This Was Obtained and Shows No Acute Abdominal Pathology. There Is Some Stool Noted in the Left Lower Quadrant. No Obstruction. I Spoke with Dr. Hoyt As She Is His Patient and We Went over Her Med List. He Stated That She Should Cut Back on Her Narcotic Pain Medication and She Should Stop Colestipol. This Was Discussed with the Patient. She Did State to Me That Her Primary Care Physician Had Called Her in Some Kind of Suppository for Constipation. I Also Recommended She Could Use [id number] Enemas If She Needs. Patient Was Amenable to This. She Is Discharged Home in Stable Condition. Impression: 1. Abdominal Pain 2. Constipation 3. Hiatal Hernia Lab Data Labs: Laboratory Results - last 24 hr 10/15/22 10/15/22 10/15/22 16:25 16:30 16:30 WBC 10.7 RBC 5.03 Hgb 13.7 Hct 42.8 MCV 85.1 MCH 27.2 MCHC 32.0 RDW Std Deviation 43.4 RDW Coeff of Celine 14.0 Plt Count 326 MPV 10.2 Immature Gran % (Auto) 0.400 Neut % (Auto) 72.1 H Lymph % (Auto) 19.3 [place] % (Auto) 6.6 Eos % (Auto) 1.2 Baso % (Auto) 0.4 Absolute Neuts (auto) 7.7 Absolute Lymphs (auto) 2.06 Nucleated RBC % 0 Sodium 141 Potassium 3.4 L Chloride 103 Carbon Dioxide 31.0 Anion Gap 7 BUN 9 Creatinine 0.79 Estim Creat Clear Calc 33.21 Est GFR (MDRD) Af Amer 89 Est GFR (MDRD) Non-Af 73 BUN/Creatinine Ratio 11.4 Glucose 122 H Calcium 9.7 Total Bilirubin 0.30 AST 41 H ALT 35 Alkaline Phosphatase 113 Total Protein 8.1 Albumin 4.1 Globulin 4.0 Albumin/Globulin Ratio 1.0 Lipase 152 Urine Color Yellow Urine Clarity Clear Urine pH 7.0 Ur Specific [place] 1.005 Urine Protein Negative Urine Glucose (UA) Normal Urine Ketones Negative Urine Occult Blood 10 H Urine Nitrite Negative Urine Bilirubin Negative Urine Urobilinogen Normal Ur Leukocyte Esterase Negative Urine RBC 0 SEEN Urine WBC 0 SEEN Ur Squamous Epith Cells 0 SEEN Urine Bacteria 0 SEEN Urine Mucus 0 SEEN Radiography Diagnostic Testing: Clinical Impression(s) from Imaging Studies Abdomen/Pelvis CT 10/15/22 16:04 IMPRESSION: Colonic diverticulosis. No obstruction or abscess. Small hiatal hernia. Electronically Signed: Chester Daugherty MD at 18:32 EST , Discharge Plan Triage Chief Complaint: Abd Pain ED Provider: Jagjit Hernandez Dx/Rx/DC Orders Instructions: ED Constipation (Adult) Prescriptions: No Action Probiotic-Digestive Enzymes 5-250 mg capsule 1 cap PO TID Qty: 30 0RF fluconazole 100 mg tablet 100 mg PO DAILY Qty: 14 0RF pilocarpine HCl 5 MG tablet 5 mg PO TID Label Comments: eye drops polyethylene glycol 3350 17 GM packet 17 g PO DAILY PRN PRN (Reason: Constipation) Label Comments: constipation atorvastatin 10 MG tablet 5 mg PO QODAY Label Comments: cholesterol melatonin 3 MG tablet 3 mg PO QHS Label Comments: sleep aid aspirin 81 MG tablet,delayed release (DR/EC) 81 mg PO DINNER Label Comments: heart health acetaminophen 500 MG tablet 500 mg PO Q6H PRN PRN (Reason: Pain) Label Comments: pain flaxseed oil 1,000 MG capsule 1,000 mg PO DAILY Label Comments: heart huang pramipexole [Mirapex] 0.125 MG tablet 0.125 mg PO .1900, 2200 Label Comments: PT TAKES 0.125 AT LUNCH AND OTHER 0.125 @ 2000 hydroxychloroquine 200 MG tablet 200 mg PO DAILYCM Label Comments: arthritis Restasis 1 DROP dropperette 1 drp EACH EYE BID Label Comments: tears calcium citrate-vitamin D3 1 EACH tablet 2 tab PO BID Label Comments: calcium with vitamin D Rx Instructions: with breakfast and lunch oxycodone-acetaminophen [Percocet] 1 TABLET tablet 0.5 tab PO BID Label Comments: pain fluticasone propionate 16 GM spray,suspension 2 spry NASAL DAILY Label Comments: USE 2 SPRAYS IN EACH NOSTRIL ONCE DAILY. RINSE MOUTH AFTER USE. magnesium oxide 250 MG tablet 500 mg PO QHS multivitamin 1 EACH tablet 1 tab PO DAILY venlafaxine 150 MG capsule,extended release 24hr 75 mg PO DAILY Label Comments: TAKE 1 CAPSULE BY MOUTH EVERY DAY vitamin B complex 1 EACH tablet 1 tab PO DAILY peg 400-propylene glycol 1 DROP bottle 30 ml OP Q6H PRN (Reason: Dry Eyes) Systane Nighttime 3.5 GM ointment 3.5 gm OP DAILY Tumeric 500 mg PO DAILY ondansetron HCl 4 MG tablet 4 mg PO Q12H PRN PRN (Reason: Nausea) omeprazole 20 MG capsule,delayed release(DR/EC) 20 mg PO BID Label Comments: TAKE 1 CAPSULE BY MOUTH TWICE A DAY Systane (PF) 1 drp EACH EYE PRN PRN (Reason: Dry Eyes) pregabalin [Lyrica] 25 mg Capsule 25 mg PO 5X/DAY zinc 50 mg Tablet 50 mg PO DAILY cholecalciferol (vitamin D3) [Vitamin D3] 25 mcg (1,000 unit) Tablet 25 mcg PO DAILY Citrucel Fiber Laxative Powder In Packet 1 ea PO QODAY colestipol 1 gram tablet See Rx Instructions .ROUTE .COMPLEX Qty: 30 11RF Dose Instruction: TAKE 1 TABLET BY MOUTH ONCE DAILY FOR BILE ACID DIARRHEA Rx Instructions: TAKE 1 TABLET BY MOUTH ONCE DAILY FOR BILE ACID DIARRHEA lubiprostone [Amitiza] 8 mcg capsule 8 mcg PO DAILY Qty: 30 0RF Primary Care Provider: Leatha Kincaid Referrals: Leatha Kincaid MD [Primary Care Provider] - Benjamin Hoyt DO [Med Staff - Active Staff] - 3-5 Days Disposition Disposition: Home, Self Care
[2022-10-15 16:38] LABS: Bacteria 0 SEEN /hpf (None Seen); Mucous, Urine 0 SEEN /hpf (<or=2+); Red Blood Cells-Urine 0 SEEN /hpf (0-5); Squamous Epithelial Cells - UA 0 SEEN /hpf (5-10); White Blood Cells 0 SEEN /hpf (0-5)
[2022-10-15 16:46] LABS: Absolute Lymphocyte Count 2.06 X10^3/uL (0.83-4.51); Absolute Neutrophil Count 7.7 X10^3/uL (2.0-7.7); Basophil# 0.04 X10^3/uL; Basophil% 0.4 % (0-1); Eosinophil# 0.13 X10^3/uL; Eosinophils% 1.2 % (0-5); Hematocrit 42.8 % (37-47); Hemoglobin 13.7 g/dL (12.0-15.0); Lymphocyte # 2.06 X10^3/ul (0.83-4.51); Lymphocyte % 19.3 % (19-41); Mean Corpuscular Hgb 27.2 pg (27.0-32.0); Mean Corpuscular Volume 85.1 fL (81-99); Mean Platelet Vol. 10.2 fl (6.2-12.0); Monocyte# 0.71 X10^3/uL; Monocyte% 6.6 % (0-10); NRBC Flagged by Analyzer 0 % (0-5); Neutrophil # 7.72 X10^3/uL (2.7-7.7); Neutrophil % 72.1 % (47-70); Platelet Count 326 K/mm3 (150-450); RBC Distribution Width SD 43.4 fl (35.1-43.9); Red Blood Count 5.03 M/mm3 (4.2-5.4); White Blood Count 10.7 K/mm3 (4.4-11.0)
[2022-10-15] MEDS: 0.9% Normal Saline 1,000 ML 1000 ML IV (16:47)
[2022-10-15] MEDS: Ondansetron 4 MG/2 ML Vial IV (16:48)
[2022-10-15] MEDS: DiphenhydrAMINE 50 MG/ML Syringe IV (16:48)
[2022-10-15 17:00] LABS: AST(SGOT) 41 U/L (15-37); Alanine Aminotransfer ALT/SGPT 35 U/L (13-56); Albumin, Serum 4.1 g/dL (3.2-5.0); Alkaline Phosphatase 113 U/L (45-117); Anion Gap 7 (5-15); BUN 9 mg/dL (7-18); BUN/Creat Ratio 11.4 RATIO (10-20); Calcium,Total 9.7 mg/dL (8.5-10.1); Chloride 103 mmol/L (98-107); Creatinine, Serum 0.79 mg/dL (0.55-1.02); EST Glomerular Filtration Rate 73 mL/min (>60); Est Glom Filt Rate - Afr Amer 89 mL/min (>60); Estimated Creatinine Clearance 33.21 ml/min; Glucose 122 mg/dL (74-106); Lipase 152 U/L (73-393); Potassium 3.4 mmol/L (3.5-5.1); Protein, Total 8.1 g/dL (6.4-8.2); Sodium Level 141 mmol/L (136-145)
[2022-10-15 17:19] LABS: Color, Urine Yellow (Yellow); Glucose, Dipstick Normal (Normal); Ketone-Dipstick Negative (Negative); Leukocyte Esterase-Dipstick Negative /ul (Negative); Nitrite-Dipstick Negative (Negative); Occult Blood-Urine 10 /ul (Negative); Protein-Dipstick Negative (Negative); Specific Gravity, Urine 1.005 (1.002-1.030); Urine Bilirubin Dipstick Negative (Negative); Urine Clarity Clear (Clear); Urine Urobilinogen Normal (Normal)
[2022-10-15 19:52] VITALS: BP 147/81; PULSE 78; RESP 16; O2SAT 97
== END 2022-10-15 19:54 | disposition home or self-care (01) ==
PROVIDERS: Emergency Provider Student in an Organized Health Care Education/Training Program; PCP Internal Medicine; Visit Provider Student in an Organized Health Care Education/Training Program
DX: R10.9 Unspecified abdominal pain (principal); K59.09 Other constipation; K44.9 Diaphragmatic hernia without obstruction or gangrene; R19.7 Diarrhea, unspecified; E78.00 Pure hypercholesterolemia, unspecified; Z79.82 Long term (current) use of aspirin; Z79.899 Other long term (current) drug therapy
CPT/HCPCS: 74177; 80053; 81001; 83690; 85025; 96361; 96374; 96375; 99283; J7030; Q9967; A4216; J2405

== ENCOUNTER 2022-11-28 13:18 | Emergency (ER) | payer MEDICARE, BC, SELFPAY ==
[2022-11-28] VITALS (8 sets, daily range): BP systolic 135–169; BP diastolic 71–86; PULSE 83–98; RESP 14; TEMP 36.6; O2SAT 89–100; BMI 24.8
[2022-11-28] MEDS: Morphine 4 MG/ML Syringe IV (16:06)
[2022-11-28] MEDS: Ondansetron 4 MG/2 ML Vial IV (16:06)
[2022-11-28 16:28] LABS: Absolute Lymphocyte Count 1.67 X10^3/uL (0.83-4.51); Absolute Neutrophil Count 7.1 X10^3/uL (2.0-7.7); Basophil# 0.04 X10^3/uL; Basophil% 0.4 % (0-1); Eosinophil# 0.11 X10^3/uL; Eosinophils% 1.1 % (0-5); Hematocrit 43.6 % (37-47); Hemoglobin 13.7 g/dL (12.0-15.0); Lymphocyte # 1.67 X10^3/ul (0.83-4.51); Lymphocyte % 17.1 % (19-41); Mean Corp Hgb Conc 31.4 g/dL (32-36); Mean Corpuscular Hgb 27.1 pg (27.0-32.0); Mean Corpuscular Volume 86.3 fL (81-99); Mean Platelet Vol. 9.9 fl (6.2-12.0); Monocyte% 8.2 % (0-10); NRBC Flagged by Analyzer 0 % (0-5); Neutrophil # 7.09 X10^3/uL (2.7-7.7); Neutrophil % 72.8 % (47-70); Platelet Count 268 K/mm3 (150-450); RBC Distribution Width CV 14.7 % (11.6-14.6); RBC Distribution Width SD 46.6 fl (35.1-43.9); Red Blood Count 5.05 M/mm3 (4.2-5.4); White Blood Count 9.8 K/mm3 (4.4-11.0)
[2022-11-28 16:35] LABS: Prothrombin Time (Protime)PT. 13.1 SECONDS (11.7-14.9)
[2022-11-28 16:56] LABS: ALB/GLOB Ratio 1.1 RATIO (0.9-2.4); AST(SGOT) 46 U/L (15-37); Alanine Aminotransfer ALT/SGPT 42 U/L (13-56); Albumin, Serum 4.3 g/dL (3.2-5.0); Alkaline Phosphatase 105 U/L (45-117); Anion Gap 8 (5-15); BUN 11 mg/dL (7-18); BUN/Creat Ratio 16.3 RATIO (10-20); Calcium,Total 9.7 mg/dL (8.5-10.1); Chloride 103 mmol/L (98-107); Creatinine, Serum 0.67 mg/dL (0.55-1.02); EST Glomerular Filtration Rate 88 mL/min (>60); Est Glom Filt Rate - Afr Amer 106 mL/min (>60); Estimated Creatinine Clearance 33.72 ml/min; Globulin 3.8 g/dL (2.2-4.2); Glucose 78 mg/dL (74-106); Potassium 3.6 mmol/L (3.5-5.1); Protein, Total 8.1 g/dL (6.4-8.2); Sodium Level 142 mmol/L (136-145)
--- NOTE | 2022-11-28 17:18 | EDS_ITS ---
HPI History of Present Illness Chief Complaint: Upper Extremity Injury Narrative Narrative: 87-year-old female presenting with numbness and tingling as well as color change in the right hand and specifically the second through fifth digits have whiteness on the distal aspects of the tips. Patient states that she had a cardiac catheterization to her right radial artery on Thursday the by Dr. Ta at [facility]. It was due to shortness of breath. She states she had a bracelet on which was supposed to keep it compressed so she did not bleed but this broke and she had a lot of bleeding postoperatively. Eventually she was sent home. Patient states that over the last couple days she had intermittent color changes in her fingers and eventually at some point today they became white and extended into the second through fourth digits on the right hand. She states that she does have some sensation. It does burn and tingle a little bit. She is able to move her hand. [facility] Medical History Anemia Anxiety Arthritis Atrial fibrillation Back pain Behcet's disease Bleeding ulcer Blister Cancer Cardiology follow-up encounter Cataract Chronic GERD Colitis Constipation Crohns disease Depression Difficulty chewing Diverticulitis Diverticulosis Dysphagia Exanthematous disorder Eye cancer Fibromyalgia Gastric reflux GERD (gastroesophageal reflux disease) Glossodynia H/O Sjogren's disease High cholesterol History of diverticulitis History of echocardiogram History of IBS History of pain when walking History of pneumonia History of stress test History of ulceration Hyperlipidemia Injury of back Injury of head and neck lap repair bladder injury Low back pain Lymphocytic colitis Meningitis Migraine headache Non-smoker Post-menopausal Raynaud's disease Sleep apnea TIA (transient ischemic attack) Ulcer of mouth Wears glasses Wears partial dentures Home Medications acetaminophen 500 mg tablet 500 mg PO Q6H PRN PRN Pain 03/29/16 [History Last Taken 09/26/18] aspirin 81 mg tablet,delayed release 81 mg PO DINNER heart health 03/29/16 [History Last Taken 10/31/21] atorvastatin 10 mg tablet 5 mg PO QODAY 03/29/16 [History Last Taken 09/26/18] calcium citrate 315 mg-vitamin D3 5 mcg (200 unit) tablet 2 tab PO BID 03/29/16 [History Last Taken 09/27/18] cyclosporine 0.05 % eye drops in a dropperette (Restasis) 1 p EACH EYE BID 03/29/16 [History Last Taken 09/27/18] flaxseed oil 1,000 mg capsule 1,000 mg PO DAILY 03/29/16 [History Last Taken 09/27/18] hydroxychloroquine 200 mg tablet 200 mg PO DAILYCM 03/29/16 [History Last Taken 09/26/18] melatonin 3 mg tablet 3 mg PO QHS 03/29/16 [History Last Taken 09/26/18] pilocarpine HCl 5 mg tablet 5 mg PO TID 03/29/16 [History Last Taken 09/27/18] pramipexole 0.125 mg tablet (Mirapex) 0.125 mg PO .1900, 2200 03/29/16 [History Last Taken 09/26/18] oxycodone-acetaminophen 5 mg-325 mg tablet (Percocet) 0.5 tab PO BID 09/19/16 [History Last Taken 09/26/18] fluticasone propionate 50 mcg/actuation nasal spray,suspension 2 spry NASAL DAILY 09/27/18 [History Last Taken 09/24/18] magnesium oxide 500 mg PO QHS 09/27/18 [History Last Taken 09/26/18] multivitamin 1 tab PO DAILY 09/27/18 [History Last Taken 09/26/18] peg 400-propylene glycol 0.4 %-0.3 % eye drops 30 ml OP Q6H PRN Dry Eyes 09/27/18 [History Last Taken 09/27/18] venlafaxine 150 mg capsule,extended release 24 hr 75 mg PO DAILY anxiety 09/27/18 [History Last Taken 09/27/18] vitamin B complex 1 tab PO DAILY 09/27/18 [History Last Taken 09/26/18] white petrolatum-mineral oil 94 %-3 % eye ointment (Systane Nighttime) 3.5 gm OP DAILY dry eye 09/27/18 [History Last Taken 09/26/18] Systane (PF) 1 drp EACH EYE PRN PRN Dry Eyes 08/16/21 [History Last Taken Unkn own] pregabalin 25 mg capsule (Lyrica) 25 mg PO 5X/DAY 08/16/21 [History Last Taken Unknown] cholecalciferol (vitamin D3) 25 mcg (1,000 unit) tablet (Vitamin D3) 25 mcg PO DAILY 10/31/21 [History Last Taken Unknown] zinc 50 mg tablet 50 mg PO DAILY 10/31/21 [History Last Taken Unknown] fluconazole 100 mg tablet 100 mg PO DAILY #14 tabs 04/03/22 [Rx Last Taken Unknown] lubiprostone 8 mcg capsule (Amitiza) 16 mcg PO BID #120 caps 11/07/22 [Rx Last Taken Unknown] omeprazole 20 mg capsule,delayed release 20 mg PO BID #60 caps 11/27/22 [Rx Last Taken Unknown] Allergy/AdvReac Type Severity Reaction Status Date / Time difluprednate [From Durezol] Allergy Other Verified 11/28/22 13:20 methylprednisolone Allergy Rash Verified 11/28/22 13:20 Penicillins Allergy Unknown Verified 11/28/22 13:20 prednisolone Allergy Swelling Verified 11/28/22 13:20 citalopram AdvReac Diarrhea Verified 11/28/22 13:20 codeine AdvReac Nausea Verified 11/28/22 13:20 dexamethasone AdvReac Other Verified 11/28/22 13:20 duloxetine HCl AdvReac Diarrhea Verified 11/28/22 13:20 [From Cymbalta] Iodinated Contrast Media AdvReac unknown Verified 11/28/22 13:20 [Iodinated Contrast- Oral and IV Dye] lamotrigine [From Lamictal] AdvReac DRUGGED Verified 11/28/22 13:20 FEELING metoclopramide HCl AdvReac INVOLUNTARY Verified 11/28/22 13:20 [From Reglan] BODY MOVEMENTS mirabegron [From Myrbetriq] AdvReac Other Verified 11/28/22 13:20 promethazine HCl AdvReac INVOLUNTARY Verified 11/28/22 13:20 [From Phenergan] BODY MOVEMENTS sertraline HCl [From Zoloft] AdvReac Diarrhea Verified 11/28/22 13:20 sulfamethoxazole AdvReac FELT Verified 11/28/22 13:20 [From Bactrim] WEIRD, HEAD NUMB, FELT DRUGGED, SHAKEY, NAUSEATED trimethoprim [From Bactrim] AdvReac FELT Verified 11/28/22 13:20 WEIRD, HEAD NUMB, FELT DRUGGED, SHAKEY, NAUSEATED Family History Other Arthritis Asthma Breast cancer CVA (cerebral vascular accident) Diabetes Heart disease Hyperlipidemia Hypertension Osteoporosis Ulcer auto immune disease Surgical History H/O adenoidectomy H/O colonoscopy H/O cystoscopy H/O dilation and curettage H/O endoscopy H/O vaginal hysterectomy History of cholecystectomy History of tonsillectomy Hx of appendectomy Hx of bilateral cataract extraction Hx of eye surgery Social History household members: none Smoking Status: Never smoker alcohol intake: never ROS ROS ED Constitutional Constitutional ED: Denies chills or fever(s) Eyes Eyes: Denies change in vision ENT ENT ED: Denies rhinorrhea or sore throat Cardiovascular Cardiovascular: Denies chest pain or palpitations Respiratory/Chest Respiratory/Chest: Denies cough or dyspnea Gastrointestinal Gastrointestinal: Denies abdominal pain Genitourinary Genitourinary ED: Denies dysuria or hematuria Musculoskeletal Musculoskeletal: Reports other Details: Right hand pain ; Denies back pain Integumentary Reports other Details: Discoloration of right hand and finger Neurologic Neurologic: Reports paresthesias RUE Psychiatric Psychiatric: Denies anxiety or depression Endocrine Endocrinology: Denies cold intolerance EXAM Physical Exam Const Vital Signs: 11/28/22 13:20 11/28/22 16:07 11/28/22 16:08 Temperature 98 F Temperature Source Temporal Pulse Rate 98 83 Respiratory Rate 14 14 Blood Pressure 159/71 H 169/78 H 169/78 H Blood Pressure Mean 100 108 108 Pulse Ox 94 97 Oxygen Delivery Method Room Air Room Air Oxygen Flow Rate (L/min) 11/28/22 16:28 11/28/22 16:32 11/28/22 16:49 Temperature Temperature Source Pulse Rate Respiratory Rate Blood Pressure Blood Pressure Mean Pulse Ox 89 98 100 Oxygen Delivery Method Nasal Cannula Nasal Cannula Oxygen Flow Rate (L/min) 1 1 11/28/22 17:14 Temperature 98 F Temperature Source Temporal Pulse Rate 83 Respiratory Rate 14 Blood Pressure 135/86 H Blood Pressure Mean 102 Pulse Ox 94 Oxygen Delivery Method Room Air Oxygen Flow Rate (L/min) Positive well nourished General Appearance ED: NAD HEENT Reports moist mucous membranes normocephalic Eyes PERRL and EOMs intact bilaterally Resp normal respiratory effort and clear to auscultation bilaterally Auscultation: Negative for rales, rhonchi or wheezes Cardio regular rate and regular rhythm Extremity Extremity Narrative: Braulio's test was performed on the right hand and there is no change in the color of her fingers from the ulnar or radial side. She does have a 2+ radial pulse. Right Upper Extremity: hand and digits inspection (Pallor from the proximal interphalangeal joints on the second, third, fourth digits down to the distal aspects of the digits. No cap refill on either finger. Sensation is diminished but intact. Full range of motion of all 5 digits. There are some slight pallor in the distal aspect of the right f), palpation (Minimal tenderness to palpation), ROM (No limitation) and hand special tests Left Upper Extremity: wrist special tests Neuro oriented x3 and CN's II-XII intact bilaterally Sensorium / Orientation: alert Motor Exam: strength 5/5 throughout Psych mental status grossly normal MDM MDM MDM Narrative Medical decision making narrative: Patient presenting with paresthesia, discoloration, pallor of the right second through fourth digits. I suspect a vascular occlusion. Braulio's test was not really helpful because it does not change the color of her hand and I do not see any collateral flow from either side. Minimal pain to palpation. Radial pulse 2+. Discussed with Dr. Caraballo and he recommended transfer because the patient will likely need a specialist in hand and in vascular surgery. We do not have hand surgery here. He recommended no advanced imaging because the patient needs to just be transferred and see vascular surgery immediately. I discussed the case with Aleida Mullins where she came from from her previous catheterization and she was accepted by Dr. Peterson who is on-call for vascular surgery. She was accepted ER to ER. She is consented for the transfer. Obtain baseline labs and I had IV access obtained. CBC to assess white blood cell count, hemoglobin, platelets, differential. Coagulation studies as well. CMP to assess liver function, renal function, glucose, anion gap. CBC shows a normal white blood cell count at 9.8. Hemoglobin 13.7 and therefore normal. Platelets within normal limits at 268. Coagulation studies are normal. CMP within normal limits with exception of a AST of 46. Patient transferred in stable condition. Impression: 1. Vascular occlusion right hand Lab Data Labs: Laboratory Results - last 24 hr 11/28/22 11/28/22 11/28/22 16:10 16:10 16:10 WBC 9.8 RBC 5.05 Hgb 13.7 Hct 43.6 MCV 86.3 MCH 27.1 MCHC 31.4 L RDW Std Deviation 46.6 H RDW Coeff of Celine 14.7 H Plt Count 268 MPV 9.9 Immature Gran % (Auto) 0.400 Neut % (Auto) 72.8 H Lymph % (Auto) 17.1 L [place] % (Auto) 8.2 Eos % (Auto) 1.1 Baso % (Auto) 0.4 Absolute Neuts (auto) 7.1 Absolute Lymphs (auto) 1.67 Nucleated RBC % 0 PT 13.1 INR 1.0 Sodium 142 Potassium 3.6 Chloride 103 Carbon Dioxide 31.0 Anion Gap 8 BUN 11 Creatinine 0.67 Estim Creat Clear Calc 33.72 Est GFR (MDRD) Af Amer 106 Est GFR (MDRD) Non-Af 88 BUN/Creatinine Ratio 16.3 Glucose 78 Calcium 9.7 Total Bilirubin 0.30 AST 46 H ALT 42 Alkaline Phosphatase 105 Total Protein 8.1 Albumin 4.3 Globulin 3.8 Albumin/Globulin Ratio 1.1 Discharge Plan Triage Chief Complaint: Upper Extremity Injury ED Provider: Jagjit Hernandez Dx/Rx/DC Orders Prescriptions: No Action fluconazole 100 mg tablet 100 mg PO DAILY Qty: 14 0RF pilocarpine HCl 5 MG tablet 5 mg PO TID Label Comments: eye drops atorvastatin 10 MG tablet 5 mg PO QODAY Label Comments: cholesterol melatonin 3 MG tablet 3 mg PO QHS Label Comments: sleep aid aspirin 81 MG tablet,delayed release (DR/EC) 81 mg PO DINNER Label Comments: heart health acetaminophen 500 MG tablet 500 mg PO Q6H PRN PRN (Reason: Pain) Label Comments: pain flaxseed oil 1,000 MG capsule 1,000 mg PO DAILY Label Comments: heart huang pramipexole [Mirapex] 0.125 MG tablet 0.125 mg PO .1899, 2199 Label Comments: PT TAKES 0.125 AT LUNCH AND OTHER 0.125 @ 2000 hydroxychloroquine 200 MG tablet 200 mg PO DAILYCM Label Comments: arthritis Restasis 1 DROP dropperette 1 drp EACH EYE BID Label Comments: tears calcium citrate-vitamin D3 1 EACH tablet 2 tab PO BID Label Comments: calcium with vitamin D Rx Instructions: with breakfast and lunch oxycodone-acetaminophen [Percocet] 1 TABLET tablet 0.5 tab PO BID Label Comments: pain fluticasone propionate 16 GM spray,suspension 2 spry NASAL DAILY Label Comments: USE 2 SPRAYS IN EACH NOSTRIL ONCE DAILY. RINSE MOUTH AFTER USE. magnesium oxide 250 MG tablet 500 mg PO QHS multivitamin 1 EACH tablet 1 tab PO DAILY venlafaxine 150 MG capsule,extended release 24hr 75 mg PO DAILY Label Comments: TAKE 1 CAPSULE BY MOUTH EVERY DAY vitamin B complex 1 EACH tablet 1 tab PO DAILY peg 400-propylene glycol 1 DROP bottle 30 ml OP Q6H PRN (Reason: Dry Eyes) Systane Nighttime 3.5 GM ointment 3.5 gm OP DAILY Systane (PF) 1 drp EACH EYE PRN PRN (Reason: Dry Eyes) pregabalin [Lyrica] 25 mg Capsule 25 mg PO 5X/DAY zinc 50 mg Tablet 50 mg PO DAILY cholecalciferol (vitamin D3) [Vitamin D3] 25 mcg (1,000 unit) Tablet 25 mcg PO DAILY lubiprostone [Amitiza] 8 mcg capsule 16 mcg PO BID Qty: 120 3RF omeprazole 20 mg capsule,delayed release(DR/EC) 20 mg PO BID Qty: 60 2RF Primary Care Provider: Leatha Kincaid Referrals: Leatha Kincaid MD [Primary Care Provider] - Disposition Disposition: Acute Care Hospital Discharge Location: [facility] Discharge Date/Time: 11/28/22 17:16
== END 2022-11-28 17:16 | disposition short-term general hospital (02) ==
LOC: ED 15:18
PROVIDERS: Emergency Provider Student in an Organized Health Care Education/Training Program; PCP Internal Medicine; Visit Provider Student in an Organized Health Care Education/Training Program
DX: I99.8 Other disorder of circulatory system (principal); I48.91 Unspecified atrial fibrillation; E78.00 Pure hypercholesterolemia, unspecified; Z79.82 Long term (current) use of aspirin; Z79.899 Other long term (current) drug therapy; Z86.73 Personal history of transient ischemic attack (TIA), and cerebral infarction without residual deficits
CPT/HCPCS: 80053; 85025; 85610; 96374; 96375; 99285; A4216; J2405

== ENCOUNTER → 2023-01-08 | Outpatient (CLI) | payer MEDICARE, BC, SELFPAY ==
--- NOTE | 2023-01-09 07:46 | PFT ---
INTRODUCTION: The patient is an 87-year-old female that presents for pulmonary function studies secondary to a diagnosis of shortness of breath. Respiratory therapy reported good patient effort. Bronchodilators were used during testing. INTERPRETATION: Forced expiration spirometry demonstrates no evidence of a large airways obstructive ventilatory defect. There was no significant response to aerosolized bronchodilators. Spirograms are of good quality and plateau normally. Body plethysmography was performed and revealed lung volumes to be within normal limits. Diffusing capacity by single breath CO was also within normal limits. IMPRESSION: Grossly normal pulmonary function studies.
== END | disposition home or self-care (01) ==
PROVIDERS: PCP Internal Medicine; Referring Provider Internal Medicine Critical Care Medicine; Visit Provider Internal Medicine Critical Care Medicine
DX: R06.02 Shortness of breath (principal)
CPT/HCPCS: 94060; 94726; 94729

== ENCOUNTER → 2023-01-09 | Outpatient (CLI) | payer MEDICARE, BC, SELFPAY ==
--- NOTE | 2023-01-09 10:57 | RAD_ITS ---
EXAM: XR ABDOMEN, 1 VIEW CLINICAL INDICATION: constipation TECHNIQUE: Frontal supine view of the abdomen/pelvis. COMPARISON: No relevant prior studies available. FINDINGS: LOWER THORAX: Lung bases are clear. GASTROINTESTINAL TRACT: Unremarkable. Non-obstructive. No bowel or stomach distention. ORGANS: See below. BONES/JOINTS: Multilevel thoracolumbar spine vertebral body height loss likely representing chronic compression fractures which are not completely imaged on this study. No evidence for acute or healing fracture or malalignment. No unusual lytic or sclerotic lesions of bone. Prior cholecystectomy. SOFT TISSUES: No acute pathology. RAD/Abdomen Single View IMPRESSION: 1. Multilevel thoracolumbar spine vertebral body height loss likely representing chronic compression fractures which are not completely imaged on this study. 2. No acute abnormalities or bowel obstruction. Electronically Signed: Lencho Gallo MD at 23:49 EDT ,
== END | disposition home or self-care (01) ==
PROVIDERS: PCP Internal Medicine; Referring Provider Internal Medicine Gastroenterology; Visit Provider Internal Medicine Gastroenterology
DX: K59.00 Constipation, unspecified (principal)
CPT/HCPCS: 74018

== ENCOUNTER → 2023-01-20 | Outpatient (CLI) | payer MEDICARE, BC, SELFPAY ==
[2023-01-20 12:41] VITALS: PULSE 101; PULSE 103; PULSE 88; PULSE 89; PULSE 92; PULSE 94; PULSE 99; O2SAT 93; O2SAT 94; O2SAT 95; O2SAT 96
--- NOTE | 2023-01-21 08:05 | PCM.PSN.6M ---
PSN 6 Minute Walk Test 6 Minute Walk Test 6 Minute Walk Test: 6 Minute Walk Test PSN:6-Minute Walk Test Start: 01/20/23 12:41 Freq: Status: Active Protocol: [id number] Document 01/20/23 12:41 [facility] (Rec: 01/20/23 12:44 [facility] [id number]) 6 Minute Walk Test Date Performed 01/20/23 Time Performed 12:30 Height 4 ft 11 in Weight: 116 lb Weight in Pounds 116.[address]: Kenan Payne Assistive device used: None Pre-test Oxygen Delivery Method Room Air Pulse Ox (%) 94 Pulse Rate (60-100 beats/min) 88 Dyspnea Christopher Scale (0-10) 0 1st minute Oxygen Delivery Method Room Air Pulse Ox (%) 93 Pulse Rate (60-100 beats/min) 92 Dyspnea Christopher Scale (0-10) 0 Number of Rests Taken 0 2nd minute Oxygen Delivery Method Room Air Pulse Ox (%) 94 Pulse Rate (60-100 beats/min) 94 Dyspnea Christopher Scale (0-10) 0 Number of Rests Taken 0 3rd minute Oxygen Delivery Method Room Air Pulse Ox (%) 95 Pulse Rate (60-100 beats/min) 101 H Dyspnea Christopher Scale (0-10) 1 Number of Rests Taken 0 4th minute Oxygen Delivery Method Room Air Pulse Ox (%) 95 Pulse Rate (60-100 beats/min) 103 H Dyspnea Christopher Scale (0-10) 2 Number of Rests Taken 1 Reported Symptoms Increased Work of Breathing 5th minute Oxygen Delivery Method Room Air Pulse Ox (%) 96 Pulse Rate (60-100 beats/min) 103 H Dyspnea Christopher Scale (0-10) 2 Number of Rests Taken 0 Reported Symptoms Increased Work of Breathing 6th minute Oxygen Delivery Method Room Air Pulse Ox (%) 95 Pulse Rate (60-100 beats/min) 99 Dyspnea Christopher Scale (0-10) 2 Number of Rests Taken 0 Reported Symptoms Increased Work of Breathing Post-test Oxygen Delivery Method Room Air Pulse Ox (%) 96 Pulse Rate (60-100 beats/min) 89 Dyspnea Christopher Scale (0-10) 0 Full Laps Walked 13 Partial Lap, Number of Tiles Walked 24 Total Distance Walked (ft) 791 Interpretation Interpretation: The patient ambulated 791 feet over the course of 6 minutes beginning on room air without assistive devices. Pretesting oxygen saturation was noted to be 94% on room air. With ambulation, the [place] oxygen saturation was 93%. Although there was evidence of impaired walk distance, there was no significant exertional oxygen desaturation. Recommendations Recommendations: There is no indication for the use of supplemental oxygen at this time.
== END | disposition home or self-care (01) ==
PROVIDERS: PCP Internal Medicine; Referring Provider Internal Medicine Critical Care Medicine; Visit Provider Internal Medicine Critical Care Medicine
DX: R06.02 Shortness of breath (principal)
CPT/HCPCS: 94618

== ENCOUNTER 2023-05-13 14:45 | Emergency (ER) | payer MEDICARE, BC, SELFPAY ==
[2023-05-13] VITALS (7 sets, daily range): BP systolic 106–152; BP diastolic 77–94; PULSE 74–123; RESP 16–18; TEMP 36.5; O2SAT 95–98; BMI 23.1
--- NOTE | 2023-05-13 15:12 | ED.VIS.CHEST ---
HPI History of Present Illness Chief Complaint: Chest Pain Informant: patient Onset/Context/Timing Onset: Today and Hours (7) Activity at onset: sudden Timing: Waxes and wanes Quality: Positive for Pressure Location: Substernal and - (Upper chest) Worsened By: Nothing Relieved By: Nothing Associated Symptoms: Positive for Diaphoresis and Dyspnea; Negative for Nausea, Vomiting, Cough, Fever, Lightheadedness, Acid Reflux or Palpitations Narrative Narrative: Patient presents with chest pain that began today. Patient states it came on rather suddenly. Patient states it has been waxing and waning. Patient describes as a pressure over her upper chest. Patient states nothing makes it better and nothing makes it worse. Patient admits to some shortness of breath and sweats. Patient denies any nausea or vomiting. Patient denies any lightheadedness. Patient denies any cough or fever. Patient states she had a normal heart cath in November of this year. CVD Risk Factors: Negative for Hypertension, Diabetes, Hypercholesterolemia, Family History 1' </=55 or Smoking PE Risk Factors: Positive for Cancer; Negative for Recent Travel/Surgery, Recent Immobilization, Prior DVT or PE or OCP + Smoking + >/=35 PFSH PFSH Medical History Anemia Anxiety Arthritis Atrial fibrillation Back pain Behcet's disease Bleeding ulcer Blister Cancer Cardiology follow-up encounter Cataract Chronic GERD Colitis Constipation Crohns disease Depression Difficulty chewing Diverticulitis Diverticulosis Dysphagia Exanthematous disorder Eye cancer Fibromyalgia Gastric reflux GERD (gastroesophageal reflux disease) Glossodynia H/O Sjogren's disease High cholesterol History of diverticulitis History of echocardiogram History of IBS History of pain when walking History of pneumonia History of stress test History of ulceration Hyperlipidemia Injury of back Injury of head and neck lap repair bladder injury Low back pain Lymphocytic colitis Meningitis Migraine headache Non-smoker Post-menopausal Raynaud's disease Sleep apnea TIA (transient ischemic attack) Ulcer of mouth Wears glasses Wears partial dentures Home Medications acetaminophen 500 mg tablet 500 mg PO Q6H PRN PRN Pain 03/29/16 [History Last Taken 09/26/18] aspirin 81 mg tablet,delayed release 81 mg PO DINNER heart health 03/29/16 [History Last Taken 10/31/21] atorvastatin 10 mg tablet 5 mg PO QODAY 07/23/16 [History Last Taken 09/26/18] calcium citrate 315 mg-vitamin D3 5 mcg (200 unit) tablet 2 tab PO BID 03/29/16 [History Last Taken 09/27/18] cyclosporine 0.05 % eye drops in a dropperette (Restasis) 1 drp EACH EYE BID 03/29/16 [History Last Taken 09/27/18] flaxseed oil 1,000 mg capsule 1,000 mg PO DAILY 03/29/16 [History Last Taken 09/27/18] hydroxychloroquine 200 mg tablet 200 mg PO DAILYCM 03/29/16 [History Last Taken 09/26/18] melatonin 3 mg tablet 3 mg PO QHS 03/29/16 [History Last Taken 09/26/18] pilocarpine HCl 5 mg tablet 5 mg PO TID 03/29/16 [History Last Taken 09/27/18] pramipexole 0.125 mg tablet (Mirapex) 0.125 mg PO .1900, 2200 03/29/16 [History Last Taken 09/26/18] oxycodone-acetaminophen 5 mg-325 mg tablet (Percocet) 0.5 tab PO BID 09/19/16 [History Last Taken 09/26/18] fluticasone propionate 50 mcg/actuation nasal spray,suspension 2 spry NASAL DAILY 09/27/18 [History Last Taken 09/24/18] magnesium oxide 500 mg PO QHS 09/27/18 [History Last Taken 09/26/18] multivitamin 1 tab PO DAILY 09/27/18 [History Last Taken 09/26/18] peg 400-propylene glycol 0.4 %-0.3 % eye drops 30 ml OP Q6H PRN Dry Eyes 09/27/18 [History Last Taken 09/27/18] venlafaxine 150 mg capsule,extended release 24 hr 75 mg PO DAILY anxiety 09/27/18 [History Last Taken 09/27/18] vitamin B complex 1 tab PO DAILY 09/27/18 [History Last Taken 09/26/18] white petrolatum-mineral oil 94 %-3 % eye ointment (Systane Nighttime) 3.5 g OP DAILY dry eye 09/27/18 [History Last Taken 09/26/18] Systane (PF) 1 drp EACH EYE PRN PRN Dry Eyes 08/16/21 [History Last Taken Unknown] pregabalin 25 mg capsule (Lyrica) 25 mg PO 5X/DAY 08/16/21 [History Last Taken Unknown] cholecalciferol (vitamin D3) 25 mcg (1,000 unit) tablet (Vitamin D3) 25 mcg PO DAILY 10/31/21 [History Last Taken Unknown] zinc 50 mg tablet 50 mg PO DAILY 10/31/21 [History Last Taken Unknown] lubiprostone 8 mcg capsule (Amitiza) 16 mcg (2 x 8 mcg) PO BID #120 caps 01/08/23 [Rx Last Taken Unknown] albuterol sulfate 90 mcg/actuation aerosol inhaler (Ventolin HFA) 2 puff inhalation Q4H PRN shortness of breath or wheezing #8.5 grams 02/03/23 [Rx Last Taken Unknown] lubiprostone 24 mcg capsule (Amitiza) 24 mcg PO DAILY #30 caps 03/03/23 [Rx Last Taken Unknown] omeprazole 20 mg capsule,delayed release 20 mg PO BID #60 caps 03/19/23 [Rx Last Taken Unknown] Allergy/AdvReac Type Severity Reaction Status Date / Time amoxicillin Allergy Rash Verified 05/13/23 14:53 difluprednate [From Durezol] Allergy Other Verified 05/13/23 14:53 methylprednisolone Allergy Rash Verified 05/13/23 14:53 Penicillins Allergy Unknown Verified 05/13/23 14:53 prednisolone Allergy Swelling Verified 05/13/23 14:53 sucralfate [From Carafate] Allergy restless Verified 05/13/23 14:53 legs diphenhydramine AdvReac Intermediate Other Verified 05/13/23 14:53 [From Benadryl] amitriptyline AdvReac sleepiness Verified 05/13/23 14:53 citalopram AdvReac Diarrhea Verified 05/13/23 14:53 codeine AdvReac Nausea Verified 05/13/23 14:53 dexamethasone AdvReac Other Verified 05/13/23 14:53 duloxetine HCl AdvReac Diarrhea Verified 05/13/23 14:53 [From Cymbalta] Iodinated Contrast Media AdvReac unknown Verified 05/13/23 14:53 [Iodinated Contrast- Oral and IV Dye] lamotrigine [From Lamictal] AdvReac DRUGGED Verified 05/13/23 14:53 FEELING metoclopramide HCl AdvReac INVOLUNTARY Verified 05/13/23 14:53 [From Reglan] BODY MOVEMENTS mirabegron [From Myrbetriq] AdvReac Other Verified 05/13/23 14:53 promethazine HCl AdvReac INVOLUNTARY Verified 05/13/23 14:53 [From Phenergan] BODY MOVEMENTS sertraline HCl [From Zoloft] AdvReac Diarrhea Verified 05/13/23 14:53 sulfamethoxazole AdvReac FELT Verified 05/13/23 14:53 [From Bactrim] WEIRD, HEAD NUMB, FELT DRUGGED, SHAKEY, NAUSEATED trimethoprim [From Bactrim] AdvReac FELT Verified 05/13/23 14:53 WEIRD, HEAD NUMB, FELT DRUGGED, SHAKEY, NAUSEATED Family History (Reviewed 02/03/23 @ 10:06 by Pascale Kennedy [employer]) Other Arthritis Asthma Breast cancer CVA (cerebral vascular accident) Diabetes Heart disease Hyperlipidemia Hypertension Osteoporosis Ulcer auto immune disease Surgical History H/O adenoidectomy H/O colonoscopy H/O cystoscopy H/O dilation and curettage H/O endoscopy H/O vaginal hysterectomy History of cholecystectomy History of tonsillectomy Hx of appendectomy Hx of bilateral cataract extraction Hx of eye surgery Social History household members: none Smoking Status: Never smoker alcohol intake: never ROS ROS ED Constitutional Constitutional ED: Denies chills or fever(s) Eyes Eyes: Denies blurry vision or change in vision ENT ENT ED: Reports sore throat; Denies rhinorrhea Cardiovascular Cardiovascular: Reports chest pain; Denies palpitations Respiratory/Chest Respiratory/Chest: Reports dyspnea; Denies cough Gastrointestinal Gastrointestinal: Denies abdominal pain, nausea or vomiting Genitourinary Genitourinary ED: Denies dysuria or hematuria Musculoskeletal Musculoskeletal: Reports back pain; Denies neck pain Integumentary Denies abscess or rash Neurologic Neurologic: Reports headache(s); Denies weakness Allergic/Immunologic Allergic/Immunologic ED: Denies mouth swelling or urticaria EXAM Physical Exam Const Vital Signs: 05/13/23 14:59 05/13/23 15:05 05/13/23 15:20 Temperature Temperature Source Pulse Rate 91 Respiratory Rate 16 Respiratory Effort Short of Breath Blood Pressure 144/94 H Blood Pressure Mean 110 Pulse Ox 96 96 Oxygen Delivery Method Room Air Room Air 05/13/23 14:53 Temperature 97.7 F L Temperature Source Temporal Pulse Rate 92 Respiratory Rate 18 Respiratory Effort Blood Pressure 145/92 H Blood Pressure Mean 109 Pulse Ox 98 Oxygen Delivery Method Room Air Positive well nourished and well developed General Appearance ED: well developed and NAD HEENT Reports dry mucous membranes normocephalic and atraumatic Mouth ED: Yes dry mucous membranes Mouth: dry mucous membranes Eyes PERRL and EOMs intact bilaterally Neck supple and no JVD Chest Wall palpation of chest normal Resp normal respiratory effort and clear to auscultation bilaterally Effort and Inspection: Negative for respiratory distress Cardio regular rate and regular rhythm GI normal to inspection, nondistended, normoactive bowel sounds, soft to palpation and non-distended GI Narrative: There is mild tenderness over the left mid abdomen. There is no rebound or guarding noted. Extremity normal to inspection General Extremety ED: Negative for edema or tenderness General Extremity: Negative for edema Neuro oriented x3, CN's II-XII intact bilaterally and no sensory deficits noted Sensorium / Orientation: awake and alert Motor Exam: strength 5/5 throughout Psych mental status grossly normal Heart Score History: Slightly/Non-Suspicious ECG: Normal Age: >/= 65 years Risk Factors: 1 or 2 Risk Factors Troponin: </= Normal Limit Score: 3 MDM MDM MDM Narrative Medical decision making narrative: Differential diagnosis includes cardiac dysrhythmia, cardiac ischemia, pulmonary embolism, pneumonia, pneumothorax, GERD, anxiety, and musculoskeletal pain. EKG will be obtained to assess for cardiac dysrhythmia and cardiac ischemia. CBC will be obtained to assess for leukocytosis and anemia. Basic metabolic profile will be obtained to assess for electrolyte abnormality and renal function. High-sensitivity troponin will be obtained to assess for cardiac ischemia. 2-hour repeat high-sensitivity troponin will be obtained to assess for ongoing cardiac ischemia. D-dimer will be obtained to assess for pulmonary embolism. Chest x-ray will be obtained to assess for pneumonia and pneumothorax. Lab Data Attestation: I reviewed the patient's lab results. Lab results narrative: CBC was reviewed and was within normal limits. D-dimer was reviewed and was 0.72 which is normal for the patient's age. Basic metabolic profile was reviewed. Potassium was slightly low at 3.3. Glucose was 114. The remainder was within normal limits. Initial high-sensitivity troponin was reviewed and was normal at 7. 2-hour repeat high-sensitivity troponin was reviewed and was normal at 8. Labs: Laboratory Results - last 24 hr 05/13/23 05/13/23 15:23 17:43 WBC 9.8 RBC 4.61 Hgb 12.7 Hct 38.7 MCV 83.9 MCH 27.5 MCHC 32.8 RDW Std Deviation 42.8 RDW Coeff of Celine 13.9 Plt Count 413 MPV 9.6 Immature Gran % (Auto) 0.800 Neut % (Auto) 73.3 H Lymph % (Auto) 17.7 L Woods % (Auto) 6.9 Eos % (Auto) 1.1 Baso % (Auto) 0.2 Absolute Neuts (auto) 7.2 Absolute Lymphs (auto) 1.73 Nucleated RBC % 0 D-Dimer Quant (PE/DVT) 0.72 H* Sodium 140 Potassium 3.3 L Chloride 105 Carbon Dioxide 31.0 Anion Gap 4 L BUN 6 L Creatinine 0.75 Estim Creat Clear Calc 32.47 Est GFR (MDRD) Af Amer 94 Est GFR (MDRD) Non-Af 78 BUN/Creatinine Ratio 8.0 L Glucose 114 H Calcium 9.3 Troponin I High Sens 7 8 Radiography Chest X-Ray - ED: 1 View, Read by ED Physician, Read by Radiologist and No Acute Disease Diagnostic Testing: Clinical Impression(s) from Imaging Studies Chest X-Ray 05/13/23 15:35 IMPRESSION: Normal x-ray examination of the chest. Electronically Signed: Grey Crawley MD at 17:00 EDT , Portable 1 view chest x-ray was obtained. On my independent interpretation, lung luna are clear. There is normal cardiac silhouette. Bony thorax is normal. There is no acute process noted. Radiologist also interpreted the x-ray and agrees. EKG Initial EKG: Attestation: I personally reviewed and interpreted this EKG as follows: Interpretation: Sinus Rhythm (84) and No Acute Injury Pattern Comments: EKG was obtained. On my independent interpretation, it showed a normal sinus rhythm with a rate of 84. MD interval, QRS interval, and QTc intervals were all normal. There is left axis deviation at -42. There are no acute ST or T wave changes. Prior EKG tracings: available for review Prior: Unchanged (08/15/2021) Treatment and Re-Evaluation :: Patient was given aspirin here. Patient was given a dose of oral potassium. Patient was advised of her findings. Patient is feeling better on reevaluation. Patient wants to go home. Patient did have a recent heart cath 6 months ago which was normal. Patient has a HEART score of 3. Patient was advised that this is low risk for acute cardiac event. Patient was instructed to follow-up with her primary care physician in 5 to 7 days for reevaluation. Patient understood and was agreeable with the plan. All questions were answered. Discharge Plan Triage Chief Complaint: Chest Pain ED Provider: Kevin Gilmore Dx/Rx/DC Orders Clinical Impression: Chest pain of uncertain etiology, Sjogrens syndrome Instructions: ED Chest Pain, Uncertain Cause Prescriptions: No Action albuterol sulfate [Ventolin HFA] 90 mcg/actuation HFA aerosol inhaler 2 puff inhalation Q4H PRN (Reason: shortness of breath or wheezing) Qty: 8.5 6RF pilocarpine HCl 5 MG tablet 5 mg PO TID Patient Comments: eye drops atorvastatin 10 MG tablet 5 mg PO QODAY Patient Comments: cholesterol melatonin 3 MG tablet 3 mg PO QHS Patient Comments: sleep aid aspirin 81 MG tablet,delayed release (DR/EC) 81 mg PO DINNER Patient Comments: heart health acetaminophen 500 MG tablet 500 mg PO Q6H PRN PRN (Reason: Pain) Patient Comments: pain flaxseed oil 1,000 MG capsule 1,000 mg PO DAILY Patient Comments: heart huang pramipexole [Mirapex] 0.125 MG tablet 0.125 mg PO .1900, 2200 Patient Comments: PT TAKES 0.125 AT LUNCH AND OTHER 0.125 @ 2000 hydroxychloroquine 200 MG tablet 200 mg PO DAILYCM Patient Comments: arthritis cyclosporine [Restasis] 1 DROP dropperette 1 drp EACH EYE BID Patient Comments: tears calcium citrate-vitamin D3 1 EACH tablet 2 tab PO BID Patient Comments: calcium with vitamin D Rx Instructions: with breakfast and lunch oxycodone-acetaminophen [Percocet] 1 TABLET tablet 0.5 tab PO BID Patient Comments: pain fluticasone propionate 16 GM spray,suspension 2 spry NASAL DAILY Patient Comments: USE 2 SPRAYS IN EACH NOSTRIL ONCE DAILY. RINSE MOUTH AFTER USE. magnesium oxide 250 MG tablet 500 mg PO QHS multivitamin 1 EACH tablet 1 tab PO DAILY venlafaxine 150 MG capsule,extended release 24hr 75 mg PO DAILY Patient Comments: TAKE 1 CAPSULE BY MOUTH EVERY DAY vitamin B complex 1 EACH tablet 1 tab PO DAILY peg 400-propylene glycol 1 DROP bottle 30 ml OP Q6H PRN (Reason: Dry Eyes) Systane Nighttime 3.5 GM ointment 3.5 g OP DAILY Systane (PF) 1 drp EACH EYE PRN PRN (Reason: Dry Eyes) pregabalin [Lyrica] 25 mg Capsule 25 mg PO 5X/DAY zinc 50 mg Tablet 50 mg PO DAILY cholecalciferol (vitamin D3) [Vitamin D3] 25 mcg (1,000 unit) Tablet 25 mcg PO DAILY lubiprostone [Amitiza] 8 mcg capsule 16 mcg PO BID Qty: 120 3RF lubiprostone [Amitiza] 24 mcg capsule 24 mcg PO DAILY Qty: 30 3RF omeprazole 20 mg capsule,delayed release(DR/EC) 20 mg PO BID Qty: 60 2RF Primary Care Provider: Leatha Kincaid Referrals: Leatha Kincaid MD [Primary Care Provider] - 3-5 Days Disposition Disposition: Home, Self Care
--- NOTE | 2023-05-13 15:20 | EKG12_ITS ---
Test Reason : CP Blood Pressure : / mmHG Vent. Rate : 084 BPM Atrial Rate : 084 BPM P-R Int : 120 ms QRS Dur : 094 ms QT Int : 392 ms P-R-T Axes : 044 -42 025 degrees QTc Int : 463 ms Normal sinus rhythm Possible Left atrial enlargement Left axis deviation Abnormal ECG Confirmed by MAURO SOTO, RIGO ([id number]), news videotape editor SOPHIA BUTLER ([id number]) on 05/15/2023 1:16:13 PM Referred By: Confirmed By:RIGO WADE MD
[2023-05-13] MEDS: 0.9% Normal Saline 1,000 ML 1000 ML IV (15:28)
[2023-05-13] MEDS: Aspirin 81 MG TAB.CHEW 324 MG PO (15:28)
--- NOTE | 2023-05-13 15:35 | RAD_ITS ---
STUDY: X-RAY CHEST REASON FOR EXAM: Female, 87 years old. chest pain TECHNIQUE: Single frontal view of the chest. COMPARISON: August 15, 2021 FINDINGS: The lungs are clear and expanded. There is no demonstrated pleural abnormality. Normal size heart. There are calcified mediastinal lymph nodes. Normal visualized pulmonary arteries. Normal visualized aortic arch and descending thoracic aorta. Scoliosis. Normal visualized ribs, clavicles, and shoulders. There is no demonstrated abnormality of the visualized soft tissue structures of the upper abdomen. RAD/Chest 1 View (Portable) IMPRESSION: Normal x-ray examination of the chest. Electronically Signed: Grey Crawley MD at 17:00 EDT ,
[2023-05-13 15:56] LABS: Absolute Lymphocyte Count 1.73 X10^3/uL (0.83-4.51); Absolute Neutrophil Count 7.2 X10^3/uL (2.0-7.7); Basophil# 0.02 X10^3/uL; Basophil% 0.2 % (0-1); Eosinophil# 0.11 X10^3/uL; Eosinophils% 1.1 % (0-5); Hematocrit 38.7 % (37-47); Hemoglobin 12.7 g/dL (12.0-15.0); Lymphocyte # 1.73 X10^3/ul (0.83-4.51); Lymphocyte % 17.7 % (19-41); Mean Corp Hgb Conc 32.8 g/dL (32-36); Mean Corpuscular Hgb 27.5 pg (27.0-32.0); Mean Corpuscular Volume 83.9 fL (81-99); Mean Platelet Vol. 9.6 fl (6.2-12.0); Monocyte# 0.67 X10^3/uL; Monocyte% 6.9 % (0-10); NRBC Flagged by Analyzer 0 % (0-5); Neutrophil # 7.17 X10^3/uL (2.7-7.7); Neutrophil % 73.3 % (47-70); Platelet Count 413 K/mm3 (150-450); RBC Distribution Width CV 13.9 % (11.6-14.6); RBC Distribution Width SD 42.8 fl (35.1-43.9); Red Blood Count 4.61 M/mm3 (4.2-5.4); White Blood Count 9.8 K/mm3 (4.4-11.0)
[2023-05-13 16:03] LABS: D-Dimer Quantitative (DVT/PE) 0.72 FEU/ug/m (0.27-0.49)
[2023-05-13 16:10] LABS: Anion Gap 4 (5-15); BUN 6 mg/dL (7-18); Calcium,Total 9.3 mg/dL (8.5-10.1); Chloride 105 mmol/L (98-107); Creatinine, Serum 0.75 mg/dL (0.55-1.02); EST Glomerular Filtration Rate 78 mL/min (>60); Est Glom Filt Rate - Afr Amer 94 mL/min (>60); Estimated Creatinine Clearance 32.47 ml/min; Glucose 114 mg/dL (74-106); Potassium 3.3 mmol/L (3.5-5.1); Sodium Level 140 mmol/L (136-145); Troponin-I HS (w/2H Reflex) 7 pg/mL (3.0-54.0)
[2023-05-13] MEDS: Potassium Chloride Oral Tablet 20 MEQ 40 MEQ PO (17:06)
[2023-05-13 17:39] LABS: Reflex Troponin-HS? (from REC) Y
[2023-05-13 18:54] LABS: Troponin-I HS 8 pg/mL (3.0-54.0)
== END 2023-05-13 20:30 | disposition home or self-care (01) ==
PROVIDERS: Emergency Provider Emergency Medicine; PCP Internal Medicine; Visit Provider Emergency Medicine
DX: R07.89 Other chest pain (principal); M35.00 Sjogren syndrome, unspecified; E78.00 Pure hypercholesterolemia, unspecified; R06.02 Shortness of breath; M79.7 Fibromyalgia; Z79.899 Other long term (current) drug therapy; Z79.82 Long term (current) use of aspirin; Z79.51 Long term (current) use of inhaled steroids
CPT/HCPCS: 71045; 80048; 84484; 85025; 85379; 93005; 96360; 96361; 99285; J7030; A4216

== ENCOUNTER 2023-12-22 11:22 | Inpatient (IN) | payer MEDICARE, BC, SELFPAY ==
[2023-12-22 11:23] VITALS: BP 136/68; PULSE 87; RESP 16; TEMP 36.8; O2SAT 91; BMI 24.3
--- NOTE | 2023-12-22 12:33 | ED.VIS.FALL ---
HPI HPI - Fall History of Present Illness Chief Complaint: Fall Detail of Chief Complaint: Fell in garage floor. Injuring her left hip. Unable to stand. Informant: patient Occured/Mechanism Occurred: Today Mechanism/Context: Yes same level fall and Yes trip Usually ambulates: Without assistance Pain/Injury Pain Location: lower extremity Quality of Pain: Sharp Current Severity: Moderate Maximum Severity: Moderate Associated Symptoms Associated Symptoms: Positive for Inability to ambulate; Negative for Parasthesias, Weakness, Loss of function, Loss of consciousness or Amnesia Narrative Narrative: 80-year-old female lives alone at home. Today she tripped and fell in the garage and landed on her left hip. Unable to stand now. Complaining of left hip pain. She does have a history of A-fib but is only on aspirin. Also history of anemia. She denies any recent illness or hospitalization. No prior hip surgery. Prior similar symptoms: No Recent Illness/Hospitalization: No PFSH PFSH Medical History (Updated 12/22/23 @ 13:[address] Radha Cortez MD) Anemia Anxiety and depression Arthritis Atrial fibrillation Back pain Behcet's disease Cardiology follow-up encounter Cataract Choroid melanoma of left eye Constipation Crohns disease Diverticulitis Dysphagia Exanthematous disorder Fibromyalgia GERD (gastroesophageal reflux disease) Glossodynia H/O Sjogren's disease High cholesterol History of diverticulitis History of echocardiogram History of IBS Hyperlipidemia Injury of back lap repair bladder injury Low back pain Lymphocytic colitis Meningitis Migraine headache Non-smoker Raynaud's disease Sleep apnea TIA (transient ischemic attack) Wears glasses Wears partial dentures Home Medications acetaminophen 500 mg tablet 500 mg PO Q6H PRN PRN Pain 03/29/16 [History Last Taken 09/26/18] aspirin 81 mg tablet,delayed release 81 mg PO DINNER [facility] 03/29/16 [History Last Taken 10/31/21] atorvastatin 10 mg tablet 5 mg PO QODAY 03/29/16 [History Last Taken 09/26/18] calcium citrate 315 mg-vitamin D3 5 mcg (200 unit) tablet 2 tab PO BID 03/29/16 [History Last Taken 09/27/18] cyclosporine 0.05 % eye drops in a dropperette (Restasis) 1 drp EACH EYE BID 03/29/16 [History Last Taken 09/27/18] flaxseed oil 1,000 mg capsule 1,000 mg PO DAILY 03/29/16 [History Last Taken 09/27/18] hydroxychloroquine 200 mg tablet 200 mg PO DAILYCM 03/29/16 [History Last Taken 09/26/18] melatonin 3 mg tablet 3 mg PO QHS 03/29/16 [History Last Taken 09/26/18] pilocarpine HCl 5 mg tablet 5 mg PO TID 03/29/16 [History Last Taken 09/27/18] pramipexole 0.125 mg tablet (Mirapex) 0.125 mg PO .1900, 2200 03/29/16 [History Last Taken 09/26/18] oxycodone-acetaminophen 5 mg-325 mg tablet (Percocet) 0.5 tab PO BID 09/19/16 [History Last Taken 09/26/18] fluticasone propionate 50 mcg/actuation nasal spray,suspension 2 spry NASAL DAILY 09/27/18 [History Last Taken 09/24/18] magnesium oxide 500 mg PO QHS 09/27/18 [History Last Taken 09/26/18] multivitamin 1 tab PO DAILY 09/27/18 [History Last Taken 09/26/18] peg 400-propylene glycol 0.4 %-0.3 % eye drops 30 ml OP Q6H PRN Dry Eyes 09/27/18 [History Last Taken 09/27/18] venlafaxine 150 mg capsule,extended release 24 hr 75 mg PO DAILY anxiety 09/27/18 [History Last Taken 09/27/18] vitamin B complex 1 tab PO DAILY 09/27/18 [History Last Taken 09/26/18] white petrolatum-mineral oil 94 %-3 % eye ointment (Systane Nighttime) 3.5 g OP DAILY dry eye 09/27/18 [History Last Taken 09/26/18] Systane (PF) 1 drp EACH EYE PRN PRN Dry Eyes 08/16/21 [History Last Taken Unknown] pregabalin 25 mg capsule (Lyrica) 25 mg PO 5X/DAY 08/16/21 [History Last Taken Unknown] cholecalciferol (vitamin D3) 25 mcg (1,000 unit) tablet (Vitamin D3) 25 mcg PO DAILY 10/31/21 [History Last Taken Unknown] zinc 50 mg tablet 50 mg PO DAILY 10/31/21 [History Last Taken Unknown] albuterol sulfate 90 mcg/actuation aerosol inhaler (Ventolin HFA) 2 puff inhalation Q4H PRN shortness of breath or wheezing #8.5 grams 02/03/23 [Rx Last Taken Unknown] omeprazole 20 mg capsule,delayed release 20 mg PO BID #60 caps 08/03/23 [Rx Last Taken Unknown] lubiprostone 24 mcg capsule (Amitiza) 24 mcg PO DAILY #30 caps 12/14/23 [Rx Last Taken Unknown] Allergy/AdvReac Type Severity Reaction Status Date / Time amoxicillin Allergy Rash Verified 05/13/23 14:53 difluprednate [From Durezol] Allergy Other Verified 05/13/23 14:53 methylprednisolone Allergy Rash Verified 05/13/23 14:53 Penicillins Allergy Unknown Verified 05/13/23 14:53 prednisolone Allergy Swelling Verified 05/13/23 14:53 sucralfate [From Carafate] Allergy restless Verified 05/13/23 14:53 legs diphenhydramine AdvReac Intermediate Other Verified 05/13/23 14:53 [From Benadryl] amitriptyline AdvReac sleepiness Verified 05/13/23 14:53 citalopram AdvReac Diarrhea Verified 05/13/23 14:53 codeine AdvReac Nausea Verified 05/13/23 14:53 dexamethasone AdvReac Other Verified 05/13/23 14:53 duloxetine HCl AdvReac Diarrhea Verified 05/13/23 14:53 [From Cymbalta] Iodinated Contrast Media AdvReac unknown Verified 05/13/23 14:53 [Iodinated Contrast- Oral and IV Dye] lamotrigine [From Lamictal] AdvReac DRUGGED Verified 05/13/23 14:53 FEELING metoclopramide HCl AdvReac INVOLUNTARY Verified 05/13/23 14:53 [From Reglan] BODY MOVEMENTS mirabegron [From Myrbetriq] AdvReac Other Verified 05/13/23 14:53 promethazine HCl AdvReac INVOLUNTARY Verified 05/13/23 14:53 [From Phenergan] BODY MOVEMENTS sertraline HCl [From Zoloft] AdvReac Diarrhea Verified 05/13/23 14:53 sulfamethoxazole AdvReac FELT Verified 05/13/23 14:53 [From Bactrim] WEIRD, HEAD NUMB, FELT DRUGGED, SHAKEY, NAUSEATED trimethoprim [From Bactrim] AdvReac FELT Verified 05/13/23 14:53 WEIRD, HEAD NUMB, FELT DRUGGED, SHAKEY, NAUSEATED Family History Other Arthritis Asthma Breast cancer CVA (cerebral vascular accident) Diabetes Heart disease Hyperlipidemia Hypertension Osteoporosis Ulcer auto immune disease Surgical History H/O adenoidectomy H/O colonoscopy H/O cystoscopy H/O dilation and curettage H/O endoscopy H/O vaginal hysterectomy History of cholecystectomy History of tonsillectomy Hx of appendectomy Hx of bilateral cataract extraction Hx of eye surgery Social History household members: none housing: house Smoking Status: Never smoker alcohol intake: never substance use type: does not use ROS ROS ED ROS Narrative Denies recent illness. Denies nausea, vomiting or diarrhea. Denies fever. Review of Systems ROS Unobtainable: Denies due to encephalopathy Constitutional Constitutional ED: Denies chills or fever(s) Eyes Eyes: Denies blurry vision ENT ENT ED: Denies ear pain Cardiovascular Cardiovascular: Denies chest pain Respiratory/Chest Respiratory/Chest: Denies cough or dyspnea Gastrointestinal Gastrointestinal: Denies abdominal pain Genitourinary Genitourinary ED: Denies dysuria or hematuria Musculoskeletal Musculoskeletal: Denies arthralgias or back pain Integumentary Denies abscess or Abrasions Neurologic Neurologic: Denies headache(s) Psychiatric Psychiatric: Denies anxiety or depression Endocrine Endocrinology: Denies polydipsia or polyphagia Hematologic/Lymphatic Hematologic/Lymphatic: Denies easy bleeding, easy bruising or lymphadenopathy Allergic/Immunologic Allergic/Immunologic ED: Denies mouth swelling, tongue swelling or urticaria EXAM Physical Exam Narrative Exam Narrative: 80-year-old female vital signs stable afebrile. Pulse ox 91% on room air no hypoxia. H EENT exam pupils round reactive light. No signs of trauma to her face or scalp. Nontender. No hematoma. Neck nontender. Lungs clear to auscultation bilaterally. Heart regular rhythm no murmur. Chest wall and ribs nontender. Abdomen soft nontender. Pelvic girdle intact. Pain to palpation left hip. Decreased range of motion left hip and pain with range of motion actively and passively left hip. No gross bony deformity. No rotation or shortening. Distal femur, left knee lower leg ankle and foot nontender. Normal dorsi plantarflexion. Normal touch sensation. Normal DP pulse. Right lower extremity and hip nontender. Upper extremities nontender with normal lightning rod erector strength. Neurologically she is awake and alert. Answering questions and following commands. No focal motor deficits. Const Vital Signs: 12/22/23 11:23 12/22/23 11:23 Temperature 98.3 F Temperature Source Oral Pulse Rate 87 Respiratory Rate 16 Respiratory Effort Normal Non-Labored Blood Pressure 136/68 H Blood Pressure Mean 90 Pulse Ox 91 Oxygen Delivery Method Room Air Room Air Positive well nourished and well developed; Negative for obese, cachectic, contractures or unkempt General Appearance ED: well developed and NAD; Negative for unkempt, cachectic or contractures Nutritional Appearance: Negative for cachectic or obese HEENT Reports normocephalic atraumatic; Negative for trauma, contusion, hematoma or tenderness Eyes PERRL and EOMs intact bilaterally General Eye ED: Negative for pale conjunctiva, scleral icterus or other Neck full ROM, no lymphadenopathy and supple General: Negative for tenderness Chest Wall inspection of chest normal and palpation of chest normal Chest: Negative for other Resp normal respiratory effort, no retractions and clear to auscultation bilaterally Effort and Inspection: Negative for pain with movement Auscultation: Negative for rales, rhonchi, wheezes or diminished lung sounds Cardio regular rate, regular rhythm, S1 normal heart sound, S2 normal heart sound and no murmurs Rate: Negative for bradycardia or tachycardic Rhythm: Negative for abnormal rhythm Bruits: Negative for other GI non-tender, non-distended and no masses Inspection: Negative for abdominal distention Auscultation: normoactive bowel sounds Palpation: soft; Negative for guarding or rebound tenderness present Back/Spine no CVA tenderness General Back: Negative for CVA tenderness, erythema, ecchymosis, swelling or tenderness Cervical Spine: Negative for cervical spine tenderness Lumbar Spine / Lower Back: Negative for lumbar spinal tenderness Neuro oriented x3, CN's II-XII intact bilaterally, moves all extremities, no focal motor deficits and no sensory deficits noted Kistler Coma Scale: document GCS findings Spontaneous Obeys Commands Oriented 15 Sensorium / Orientation: oriented to person, oriented to place and oriented to time; Negative for orientation impaired, confused, lethargic or stuporous Motor Exam: strength 5/5 throughout Psych mental status grossly normal and thought process normal Appearance: Negative for unkempt Attitude: No agitated Mood & Affect: Negative for depressed, anxious or tearful Skin General Skin Exam: Negative for other Lesions: no lesions Rashes: no rashes Trauma: Negative for abrasion or laceration MDM MDM MDM Narrative Medical decision making narrative: 80-year-old female tripped and fell in her garage complaining left hip pain. Rule out fracture versus dislocation versus pelvic fracture. X-ray being obtained. She will be treated with IV morphine and Zofran for pain. Left hip x-ray shows a left hip femoral neck fracture. I discussed with Dr. Huey Calixto of orthopedics. He is willing to take the patient to surgery when she is ready. I have the hospitalist on page for admission. Patient is aware of the plan. History & Record Review Discussion w/independent historian: Patient Additional record(s) reviewed:: Prior inpatient record, Prior outpatient record, Prior ED visit and Prior labs Lab Data Attestation: I reviewed the patient's lab results. Lab results narrative: CBC shows a white count of 10. H&H of 13 and 42. Platelets 280. Electrolytes unremarkable gap of 3. BUN and creatinine are 13 and 0.7. Glucose 122. Labs: Laboratory Results - last 24 hr 12/22/23 12:50 WBC 10.2 RBC 4.91 Hgb 13.1 Hct 42.4 MCV 86.4 MCH 26.7 L MCHC 30.9 L RDW Std Deviation 43.8 RDW Coeff of Celine 13.7 Plt Count 280 MPV 9.7 Immature Gran % (Auto) 0.700 Neut % (Auto) 78.6 H Lymph % (Auto) 10.5 L [place] % (Auto) 7.9 Eos % (Auto) 2.0 Baso % (Auto) 0.3 Absolute Neuts (auto) 8.1 H Absolute Lymphs (auto) 1.07 Nucleated RBC % 0 Sodium 139 Potassium 3.7 Chloride 103 Carbon Dioxide 33.0 H Anion Gap 3 L BUN 13 Creatinine 0.74 Estim Creat Clear Calc 34.91 Est GFR (MDRD) Af Amer 95 Est GFR (MDRD) Non-Af 78 BUN/Creatinine Ratio 17.5 Glucose 122 H Calcium 9.2 Radiography Chest X-Ray - ED: 1 View, Read by ED Physician, Heart, Lungs, Mediastinum, Bony Structures, No Acute Disease and Chronic Changes Diagnostic Testing: Left hip and pelvis x-ray, 3 views interpreted by myself shows a left femoral neck. No pelvic fractures. Chest x-ray, portable, single view shows no acute abnormality. Interpreted by myself. Normal cardiac silhouette. Normal lung luna. Chronic changes. Rhythm Strip Rhythm Strip: Sinus Rhythm Rate: 67 Ectopy: None EKG Initial EKG: Attestation: I personally reviewed and interpreted this EKG as follows: Interpretation: Sinus Rhythm and No Acute Injury Pattern Comments: Normal sinus rhythm rate of 67 no acute signs of VA or ischemia. Left anterior fascicular block. Inverted T waves in leads V1, and V2. Discharge Plan Dx/Rx/DC Orders Clinical Impression: History of atrial fibrillation, Fall, Closed fracture of left hip Disposition Disposition: Acute Care Hospital [facility]
[2023-12-22] MEDS: Ondansetron 4 MG/2 ML Vial IV (12:48)
[2023-12-22] MEDS: Morphine 4 MG/ML Syringe IV ×4 (12:48→17:40)
--- NOTE | 2023-12-22 13:00 | RAD_ITS ---
STUDY: X-RAY - PELVIS AND LEFT HIP REASON FOR EXAM: Female, 88 years old. Fall w/ left hip pain TECHNIQUE: 3 views of the pelvis and hip. COMPARISON: None. FINDINGS: There is a non-specific bowel gas pattern. Normal visualized soft tissue structures. Normal bilateral iliac wings, sacroiliac joints and visualized sacrum. Normal bilateral superior and inferior pubic rami. Normal pubic symphysis. Normal bilateral ischial tuberosities. There is evidence of a basilar cervical fracture of the proximal left femur. Mild cephalic migration of the distal fracture fragment. RAD/HIP, UNI W/ Pelvis 2-3 Views IMPRESSION: Nondisplaced basilar cervical fracture of the proximal left femur with mild superior migration of the distal femoral component. Electronically Signed: John Peter MD at 14:02 EDT ,
[2023-12-22 13:01] LABS: Absolute Lymphocyte Count 1.07 X10^3/uL (0.83-4.51); Absolute Neutrophil Count 8.1 X10^3/uL (2.0-7.7); Basophil# 0.03 X10^3/uL; Basophil% 0.3 % (0-1); Hematocrit 42.4 % (37-47); Hemoglobin 13.1 g/dL (12.0-15.0); Lymphocyte # 1.07 X10^3/ul (0.83-4.51); Lymphocyte % 10.5 % (19-41); Mean Corp Hgb Conc 30.9 g/dL (32-36); Mean Corpuscular Hgb 26.7 pg (27.0-32.0); Mean Corpuscular Volume 86.4 fL (81-99); Mean Platelet Vol. 9.7 fl (6.2-12.0); Monocyte# 0.81 X10^3/uL; Monocyte% 7.9 % (0-10); NRBC Flagged by Analyzer 0 % (0-5); Neutrophil # 8.05 X10^3/uL (2.7-7.7); Neutrophil % 78.6 % (47-70); Platelet Count 280 K/mm3 (150-450); RBC Distribution Width CV 13.7 % (11.6-14.6); RBC Distribution Width SD 43.8 fl (35.1-43.9); Red Blood Count 4.91 M/mm3 (4.2-5.4); White Blood Count 10.2 K/mm3 (4.4-11.0)
[2023-12-22 13:15] LABS: Anion Gap 3 (5-15); BUN 13 mg/dL (7-18); BUN/Creat Ratio 17.5 RATIO (10-20); Calcium,Total 9.2 mg/dL (8.5-10.1); Chloride 103 mmol/L (98-107); Creatinine, Serum 0.74 mg/dL (0.55-1.02); EST Glomerular Filtration Rate 78 mL/min (>60); Est Glom Filt Rate - Afr Amer 95 mL/min (>60); Estimated Creatinine Clearance 34.91 ml/min; Glucose 122 mg/dL (74-106); Potassium 3.7 mmol/L (3.5-5.1); Sodium Level 139 mmol/L (136-145)
--- NOTE | 2023-12-22 13:19 | EKG12_ITS ---
Test Reason : FALL Blood Pressure : / mmHG Vent. Rate : 067 BPM Atrial Rate : 067 BPM P-R Int : 118 ms QRS Dur : 094 ms QT Int : 414 ms P-R-T Axes : 068 -61 055 degrees QTc Int : 437 ms Normal sinus rhythm Left anterior fascicular block Abnormal ECG Confirmed by MAURO SOTO, RIGO ([id number]), department editor SOPHIA BUTLER ([id number]) on 12/23/2023 9:14:31 AM Referred By: Confirmed By:RIGO WADE MD
--- NOTE | 2023-12-22 13:40 | RAD_ITS ---
STUDY: X-RAY CHEST REASON FOR EXAM: Female, 88 years old. Pre-op hip fracture TECHNIQUE: Single AP portable view of the chest. COMPARISON: Comparison is made with prior study dated May 13, 2023. FINDINGS: EKG electrodes are seen. The lungs are clear and expanded. There is no demonstrated pleural abnormality. Normal size heart. Calcified bilateral hilar lymph nodes. Normal visualized pulmonary arteries. There is atherosclerotic calcification of the aortic arch with tortuosity. There are diffuse degenerative changes of the visualized thoracic spine. Mild dextroscoliosis. Normal visualized ribs, clavicles, and shoulders. There is no demonstrated abnormality of the visualized soft tissue structures of the upper abdomen. RAD/Chest 1 View (Portable) IMPRESSION: No acute abnormality is seen. Electronically Signed: John Peter MD at 14:12 EDT ,
--- NOTE | 2023-12-22 13:40 | PCM.HP.STD ---
HPI - General General Date of Admission: 12/22/23 Date of Service: 12/22/23 Chief Complaint: Fall, L hip pain. HPI Narrative The patient is an 88 y/o F w/ PMHx: Chronic anemia, Anxiety and Depression, PAF, Behcet's disease/Sjogren's disease, GERD, Crohn's disease, HLD, Chronic migraines, MARILEE, Hx choroid melanoma left eye, Ankylosing spondylitis, RLS who presents to the [facility] ED on 12/22/23 with history of unfortunately mechanical fall in her garage onto the hard floor, tripping with significant sharp left lower extremity and hip pain, unable to bear weight prompting eventual ED evaluation. Patient reports that she does not take any anticoagulation but a daily baby aspirin given her underlying PAF history. Patient notes that normally she is very active and feels all her own ADLs. She currently reports the pain in the left hip 8 out of 10 in severity but notes it waxes and wanes especially if she tends to move where the pain medicine wears off. Workup in the ED included T98.3, heart rate 87, BP 136/68, respiratory rate 16, 91% on room air, CBC with WBC 10.2, hemoglobin 13.1, MCV 86.4, platelet 280 with left shift, BMP with Comvax at 33, glucose 122 otherwise unremarkable, type and screen initiated per ED physician, plain film of the left hip and pelvis with evidence of a left femoral neck fracture however final read per radiology is pending upon evaluation, EKG SR without acute evidence of ischemia, preoperative CXR without acute cardiopulmonary findings. ED discussed case with Dr. Orosco Orthopedic surgery. In the ED patient ministered Zofran 4 mg IV x 1 as well as morphine 4 mg IV x 2. [facility] Medical History (Updated 12/22/23 @ 13:[address] Radha Cortez MD) Anemia Anxiety and depression Arthritis Atrial fibrillation Back pain Behcet's disease Cardiology follow-up encounter Cataract Choroid melanoma of left eye Constipation Crohns disease Diverticulitis Dysphagia Exanthematous disorder Fibromyalgia GERD (gastroesophageal reflux disease) Glossodynia H/O Sjogren's disease High cholesterol History of diverticulitis History of echocardiogram History of IBS Hyperlipidemia Injury of back lap repair bladder injury Low back pain Lymphocytic colitis Meningitis Migraine headache Non-smoker Raynaud's disease Sleep apnea TIA (transient ischemic attack) Wears glasses Wears partial dentures Home Medications acetaminophen 500 mg tablet 500 mg PO Q6H PRN PRN Pain 03/29/16 [History Last Taken 09/26/18] aspirin 81 mg tablet,delayed release 81 mg PO DINNER heart health 03/29/16 [History Last Taken 10/31/21] atorvastatin 10 mg tablet 5 mg PO QODAY 03/29/16 [History Last Taken 09/26/18] calcium citrate 315 mg-vitamin D3 5 mcg (200 unit) tablet 2 tab PO BID 03/29/16 [History Last Taken 09/27/18] cyclosporine 0.05 % eye drops in a dropperette (Restasis) 1 drp EACH EYE BID 03/29/16 [History Last Taken 09/27/18] flaxseed oil 1,000 mg capsule 1,000 mg PO DAILY 03/29/16 [History Last Taken 09/27/18] hydroxychloroquine 200 mg tablet 200 mg PO DAILYCM 03/29/16 [History Last Taken 09/26/18] melatonin 3 mg tablet 3 mg PO QHS 03/29/16 [History Last Taken 09/26/18] pilocarpine HCl 5 mg tablet 2.5 mg PO TID 03/29/16 [History Last Taken 09/27/18] pramipexole 0.125 mg tablet (Mirapex) 0.125 mg PO .1900, 2200 03/29/16 [History Last Taken 09/26/18] oxycodone-acetaminophen 5 mg-325 mg tablet (Percocet) 0.5 tab PO BID 09/19/16 [History Last Taken 09/26/18] fluticasone propionate 50 mcg/actuation nasal spray,suspension 2 spry NASAL DAILY 09/27/18 [History Last Taken 09/24/18] magnesium oxide 400 mg PO QHS 09/27/18 [History Last Taken 09/26/18] multivitamin 1 tab PO DAILY 09/27/18 [History Last Taken 09/26/18] venlafaxine 150 mg capsule,extended release 24 hr 75 mg PO DAILY anxiety 09/27/18 [History Last Taken 09/27/18] vitamin B complex 1 tab PO DAILY 09/27/18 [History Last Taken 09/26/18] white petrolatum-mineral oil 94 %-3 % eye ointment (Systane Nighttime) 3.5 g OP DAILY dry eye 09/27/18 [History Last Taken 09/26/18] pregabalin 25 mg capsule (Lyrica) 25 mg PO TID 08/16/21 [History Last Taken Unknown] zinc 50 mg tablet 50 mg PO DAILY 10/31/21 [History Last Taken Unknown] albuterol sulfate 90 mcg/actuation aerosol inhaler (Ventolin HFA) 2 puff inhalation Q4H PRN shortness of breath or wheezing #8.5 grams 02/03/23 [Rx Last Taken Unknown] lubiprostone 24 mcg capsule (Amitiza) 24 mcg PO DAILY #30 caps 12/14/23 [Rx Last Taken Unknown] Allergy/AdvReac Type Severity Reaction Status Date / Time amoxicillin Allergy Rash Verified 05/13/23 14:53 difluprednate [From Durezol] Allergy Other Verified 05/13/23 14:53 methylprednisolone Allergy Rash Verified 05/13/23 14:53 Penicillins Allergy Unknown Verified 05/13/23 14:53 prednisolone Allergy Swelling Verified 05/13/23 14:53 sucralfate [From Carafate] Allergy restless Verified 05/13/23 14:53 legs diphenhydramine AdvReac Intermediate Other Verified 05/13/23 14:53 [From Benadryl] amitriptyline AdvReac sleepiness Verified 05/13/23 14:53 citalopram AdvReac Diarrhea Verified 05/13/23 14:53 codeine AdvReac Nausea Verified 05/13/23 14:53 dexamethasone AdvReac Other Verified 05/13/23 14:53 duloxetine HCl AdvReac Diarrhea Verified 05/13/23 14:53 [From Cymbalta] Iodinated Contrast Media AdvReac unknown Verified 05/13/23 14:53 [Iodinated Contrast- Oral and IV Dye] lamotrigine [From Lamictal] AdvReac DRUGGED Verified 05/13/23 14:53 FEELING metoclopramide HCl AdvReac INVOLUNTARY Verified 05/13/23 14:53 [From Reglan] BODY MOVEMENTS mirabegron [From Myrbetriq] AdvReac Other Verified 05/13/23 14:53 promethazine HCl AdvReac INVOLUNTARY Verified 05/13/23 14:53 [From Phenergan] BODY MOVEMENTS sertraline HCl [From Zoloft] AdvReac Diarrhea Verified 05/13/23 14:53 sulfamethoxazole AdvReac FELT Verified 05/13/23 14:53 [From Bactrim] WEIRD, HEAD NUMB, FELT DRUGGED, SHAKEY, NAUSEATED trimethoprim [From Bactrim] AdvReac FELT Verified 05/13/23 14:53 WEIRD, HEAD NUMB, FELT DRUGGED, SHAKEY, NAUSEATED Family History (Updated 12/22/23 @ 14:[address] Radha Cortez MD) Mother Diabetes Breast cancer Arthritis Asthma auto immune disease Father Heart disease Hypertension Hyperlipidemia CVA (cerebral vascular accident) Arthritis Surgical History H/O adenoidectomy H/O colonoscopy H/O cystoscopy H/O dilation and curettage H/O endoscopy H/O vaginal hysterectomy History of cholecystectomy History of tonsillectomy Hx of appendectomy Hx of bilateral cataract extraction Hx of eye surgery Social History household members: none housing: house Smoking Status: Never smoker alcohol intake: never substance use type: does not use ROS ROS Narrative Admission Review of Systems: CONSTITUTIONAL: No weight loss, fever, chills, weakness or fatigue. HEENT: + Occasional intermittent oral sores, dry eyes, dry mouth. Eyes: No visual loss, blurred vision, double vision or yellow sclerae. Ears, Nose, Throat: No hearing loss, sneezing, congestion, runny nose or sore throat. SKIN: No rash or itching, lesions, wounds, except + chronic issues with autoimmune pseudofolliculitis/occasional erythema nodosum, occasional oral sores. CARDIOVASCULAR: No chest pain, chest pressure or chest discomfort, palpitations, edema, orthopnea, syncopal events. RESPIRATORY: No shortness of breath, cough or sputum, wheezing, hemoptysis. GASTROINTESTINAL: No anorexia, nausea, vomiting or diarrhea, abdominal pain, melena, BRBPR. GENITOURINARY: No dysuria, frequency, urgency or retention. NEUROLOGICAL: + Significant issues with restless leg syndrome. No headache, dizziness, syncope, paralysis, ataxia, numbness or tingling in the extremities, focal weakness, change in bowel or bladder control, seizure. MUSCULOSKELETAL: + muscle, back pain, joint pain or stiffness. HEMATOLOGIC: No anemia, bleeding or bruising. LYMPHATICS: No enlarged nodes. No history of splenectomy. PSYCHIATRIC: + History of anxiety and depression. ENDOCRINOLOGIC: No reports of sweating, cold or heat intolerance. No polyuria or polydipsia. ALLERGIES: + Chronic rhinitis. Vital Signs Vital Signs Vital Signs: 12/22/23 11:23 12/22/23 11:23 Temperature 98.3 F Temperature Source Oral Pulse Rate 87 Respiratory Rate 16 Respiratory Effort Normal Non-Labored Blood Pressure 136/68 H Blood Pressure Mean 90 Pulse Ox 91 Oxygen Delivery Method Room Air Room Air Weight Weight: 116 lb 6.465 oz Body Mass Index (BMI) 24.3 Physical Exam Narrative Physical Examination: General: Awake, alert, oriented x 3 and cooperative, laying in the ED bed, no acute distress but reports pain vacillating 7-8 out of 10 in severity. Skin: Normal color, normal turgor, no icterus, no cyanosis except occasional staged ecchymoses, no severe erythema nodosum or pseudofolliculitis noted to the extremities. HEENT: AT/NC, EOMI, PERRLA, moderately dry MM, no carotid bruits or JVD noted. Lungs: CTA bilaterally, moderate effort, mild decrease BL bases, no rales, ronchi or wheezing. Heart: Regular rate and rhythm; no gallop, rub audible. Abdomen: Soft, NTTP, ND, mildly hyperactive BS, no HSM. Extremities: No cyanosis, clubbing, or edema. Neurological: Patient awake, alert, oriented as noted, cognitive function intact; pupils equally reactive to light and accommodation, cranial nerves II-XII grossly normal, moving all 4 extremities except expected limitation left lower extremity given fall with hip fracture, strength accordingly severely globally decreased. Psychiatric: Affect appears normal despite reported pain, no acute evidence of depressive or anxiety feelings but does have underlying history. Results Lab / Micro Data 12/22/23 12:50 12/22/23 12:50 Labs: Laboratory Results - last 24 hr 12/22/23 12:50: WBC 10.2, RBC 4.91, Hgb 13.1, Hct 42.4, MCV 86.4, MCH 26.7 L, MCHC 30.9 L, RDW Std Deviation 43.8, RDW Coeff of Celine 13.7, Plt Count 280, MPV 9.7, Immature Gran % (Auto) 0.700, Neut % (Auto) 78.6 H, Lymph % (Auto) 10.5 L, [place] % (Auto) 7.9, Eos % (Auto) 2.0, Baso % (Auto) 0.3, Absolute Neuts (auto) 8.1 H, Absolute Lymphs (auto) 1.07, Nucleated RBC % 0, Sodium 139, Potassium 3.7, Chloride 103, Carbon Dioxide 33.0 H, Anion Gap 3 L, BUN 13, Creatinine 0.74, Estim Creat Clear Calc 34.91, Est GFR (MDRD) Af Amer 95, Est GFR (MDRD) Non-Af 78, BUN/Creatinine Ratio 17.5, Glucose 122 H, Calcium 9.2 Assessment & Plan Assessment/Plan (1) Closed fracture of left hip: PLAN: Plan The patient is an 88 y/o F w/ PMHx: Chronic anemia, Anxiety and Depression, PAF, Behcet's disease/Sjogren's disease, GERD, Crohn's disease, HLD, Chronic migraines, MARILEE, Hx choroid melanoma left eye, Ankylosing spondylitis, RLS who presents to the [facility] ED on 12/22/23 with history of unfortunately mechanical fall in her garage onto the hard floor, tripping with significant sharp left lower extremity and hip pain, unable to bear weight prompting eventual ED evaluation. #1. General debility, left hip pain s/p mechanical fall w/ left femoral neck fracture: Plain film noting left femoral neck fracture however final read per radiology pending upon evaluation. Orthopedic surgery consulted from ED. Will admit to MS, maintain NPO after midnight, continue gentle IVFs, obtain TSH, penny placement, monitor I/Os, frequent positioning, fall precautions, as needed pain, anti-emetic regimen. PT/OT following operative intervention. CM consulted for discharge planning. Per NSQIP patient is lower to maximum moderate risk although do suspect mildly elevated component despite this lower calculated risk given underlying significant autoimmune disease, EKG SR without acute findings, preoperative CXR unremarkable, agree with progression to OR. #2. Behcet's disease: Will continue to monitor patient for lower extremity swelling, Amado wraps as able and monitor for any development of pseudofolliculitis especially given current presentation, continue oral hydroxychloroquine, continue routine oral care. #3. Autoimmune disease (Sjogren's disease with history of chronic dysphagia unclear type/Raynaud's disease): Maintain on aspiration precautions as needed, may involve speech therapy if necessary, continue routine oral care and eyedrops scheduled and as needed. Given planned OR as noted will temporarily hold hydroxychloroquine with resumption postoperatively once appropriate. #4. Chronic constipation: We will continue patient home lubiprostone regimen, as needed bowel regimen as needed especially given pain regimen with acute presentation #1. #5. History Choroid melanoma left eye: History of ocular surgical intervention, considered in remission, encourage continued outpatient follow-up as previously arranged, maintain on fall precautions. #6. History of TIA: Will continue statin, not on hypertensive regimen, resume baby aspirin following operative intervention. #7. Chronic anemia, presumed normocytic: Chart reported, baseline hemoglobin appears 10-13, current presentation hemoglobin 13.1, MCV 86.4, continue to trend. #8. Anxiety and depression: We will continue patient on venlafaxine regimen. #9. PAF: Per current list not on rate or rhythm agents nor on any chronic anticoagulant therapy, clarifying. #10. Hyperlipidemia: We will continue patient on statin therapy. #11. RLS: Will continue home mirapex. #12. GERD: Will continue home omeprazole. #13. MARILEE: Chart history of noncompliance with PAP therapy, encourage usage CPAP nightly #14. DVT prophylaxis: SCDs, defer chemoprophylaxis given planned operative intervention. #15. CODE status: Patient YG is her daughter and living will is currently in place. Discussed CODE status at length including difference between FULL code, DNR-CCA and DNR-CC status. Following discussions about the differences in these status, requested DNR-CCA, no intubation. Advanced Care Planning Face to Face Time: 16 minutes. Charges/Coding Visit Charges Inpatient E&M: 54785 Init Hosp L3 Procedures Hospitalists Procedures: 96277 Advncd Care Plan 30 Min
--- NOTE | 2023-12-22 13:54 | NURSING ---
DR CHOWDHURY FOR DR ALONZO
[2023-12-22 13:58] VITALS: BP 106/91; PULSE 72; RESP 17; TEMP 36.8; O2SAT 91
--- NOTE | 2023-12-22 14:04 | NURSING ---
MED SURG WHITE FALL, LT HIP FX, HX OF AFIB
[2023-12-22 14:10] VITALS: BP 131/85; PULSE 70; RESP 15; TEMP 36.7; O2SAT 97
--- NOTE | 2023-12-22 14:22 | ED.RN ---
Per Dr. Cortez, do not give cefazolin or TXA right now. This is a preop order.
[2023-12-22 16:21] VITALS: BMI 23.9
[2023-12-22 16:39] VITALS: BP 155/72; PULSE 88; RESP 18; TEMP 36.7; O2SAT 98
[2023-12-22] MEDS: Pregabalin 25 MG Capsule PO ×2 (17:41→21:38)
[2023-12-22] MEDS: Pramipexole Di-HCl 0.125 MG Tablet PO ×2 (17:41→21:37)
[2023-12-22] MEDS: 0.9% Saline Lock 10 ML Syringe IV (17:42)
[2023-12-22 20:35] VITALS: BP 136/77; PULSE 74; RESP 16; TEMP 36.1; O2SAT 100
[2023-12-22] MEDS: oxyCODONE 5 MG Tablet PO (20:36)
[2023-12-22] MEDS: MELATONIN 3 MG TABLET PO (22:40)
[2023-12-22] MEDS: Carboxymethylcellulose sodium gel dropperette 1 EACH EACH EYE (22:40)
[2023-12-22] MEDS: Pilocarpine HCl 5 MG Tablet PO (22:40)
[2023-12-23] VITALS (19 sets, daily range): BP systolic 98–150; BP diastolic 46–129; PULSE 64–92; RESP 12–18; TEMP 36.1–37.3; O2SAT 87–98; BMI 23.9
[2023-12-23] MEDS: oxyCODONE 5 MG Tablet PO (00:51)
[2023-12-23] MEDS: Pregabalin 25 MG Capsule PO ×4 (00:51→23:41)
[2023-12-23] MEDS: Pramipexole Di-HCl 0.125 MG Tablet PO ×4 (00:51→23:47)
[2023-12-23] MEDS: 0.9% Normal Saline (1000mL) 1,000 ML 100 ML IV (00:52)
[2023-12-23] MEDS: 0.9% Saline Lock 10 ML Syringe IV ×2 (04:04→07:20)
[2023-12-23] MEDS: Morphine 4 MG/ML Syringe IV ×3 (04:04→20:15)
[2023-12-23 04:52] LABS: Absolute Lymphocyte Count 1.04 X10^3/uL (0.83-4.51); Absolute Neutrophil Count 9.1 X10^3/uL (2.0-7.7); Basophil# 0.03 X10^3/uL; Basophil% 0.3 % (0-1); Eosinophil# 0.28 X10^3/uL; Eosinophils% 2.5 % (0-5); Hemoglobin 13.2 g/dL (12.0-15.0); Lymphocyte # 1.04 X10^3/ul (0.83-4.51); Lymphocyte % 9.1 % (19-41); Mean Corp Hgb Conc 30.7 g/dL (32-36); Mean Corpuscular Hgb 26.9 pg (27.0-32.0); Mean Corpuscular Volume 87.8 fL (81-99); Mean Platelet Vol. 9.8 fl (6.2-12.0); Monocyte# 0.87 X10^3/uL; Monocyte% 7.6 % (0-10); NRBC Flagged by Analyzer 0 % (0-5); Platelet Count 286 K/mm3 (150-450); RBC Distribution Width CV 14.1 % (11.6-14.6); RBC Distribution Width SD 45.4 fl (35.1-43.9); White Blood Count 11.4 K/mm3 (4.4-11.0)
[2023-12-23 05:18] LABS: ALB/GLOB Ratio 0.9 RATIO (0.9-2.4); AST(SGOT) 41 U/L (15-37); Alanine Aminotransfer ALT/SGPT 49 U/L (13-56); Albumin, Serum 3.2 g/dL (3.2-5.0); Alkaline Phosphatase 94 U/L (45-117); Anion Gap 3 (5-15); BUN 9 mg/dL (7-18); BUN/Creat Ratio 13.4 RATIO (10-20); Calcium,Total 8.7 mg/dL (8.5-10.1); Chloride 104 mmol/L (98-107); Creatinine, Serum 0.67 mg/dL (0.55-1.02); EST Glomerular Filtration Rate 88 mL/min (>60); Est Glom Filt Rate - Afr Amer 106 mL/min (>60); Estimated Creatinine Clearance 34.91 ml/min; Globulin 3.6 g/dL (2.2-4.2); Glucose 113 mg/dL (74-106); Potassium 3.6 mmol/L (3.5-5.1); Protein, Total 6.8 g/dL (6.4-8.2); Sodium Level 138 mmol/L (136-145)
--- NOTE | 2023-12-23 07:20 | PCM.PN.HOSP ---
Reason for Visit Reason for Visit: Diagnoses Fracture of unspecified part of neck of left femur, initial encounter for closed fracture (12/22/23) Subjective Subjective Patient is an 88-year-old lady with multiple comorbidities who slipped and fell in her garage resulting in subsequent left hip pain. Presented to the emergency department imaging studies demonstrated Nondisplaced basilar cervical fracture of the proximal left femur with mildsuperior migration of the distal femoral component.. Admitted to regular nursing floor with consultation placed orthopedic surgery Objective Data Objective Data Vital Signs: Vital Signs Temp Pulse Resp BP Pulse Ox O2 Del Method O2 Flow Rate 98.8 F 80 16 120/54 L 95 Room Air 2 12/23/23 04:00 12/23/23 04:00 12/23/23 04:00 12/23/23 07:19 12/23/23 04:00 12/23/23 04:00 12/22/23 17:26 Oxygen Flow Rate (L/min) 2 Oxygen Delivery Method Room Air Weight: 51.936 kg Body Mass Index (BMI) 23.9 Intake & Output: Intake and Output for Last 24 Hours 12/21/23 12/22/23 12/23/23 23:59 23:59 23:59 Intake Total 200 / 200 Output Total 200 / 900 1000 / 1000 Balance 0 / -700 -1000 / -1000 Lab / Micro Data 12/23/23 04:30 12/23/23 04:30 Labs: Laboratory Results - last 24 hr 12/22/23 12:50: WBC 10.2, RBC 4.91, Hgb 13.1, Hct 42.4, MCV 86.4, MCH 26.7 L, MCHC 30.9 L, RDW Std Deviation 43.8, RDW Coeff of Celine 13.7, Plt Count 280, MPV 9.7, Immature Gran % (Auto) 0.700, Neut % (Auto) 78.6 H, Lymph % (Auto) 10.5 L, [place] % (Auto) 7.9, Eos % (Auto) 2.0, Baso % (Auto) 0.3, Absolute Neuts (auto) 8.1 H, Absolute Lymphs (auto) 1.07, Nucleated RBC % 0, Sodium 139, Potassium 3.7, Chloride 103, Carbon Dioxide 33.0 H, Anion Gap 3 L, BUN 13, Creatinine 0.74, Estim Creat Clear Calc 34.91, Est GFR (MDRD) Af Amer 95, Est GFR (MDRD) Non-Af 78, BUN/Creatinine Ratio 17.5, Glucose 122 H, Calcium 9.2 12/22/23 13:26: Blood Type O POSITIVE, Antibody Screen NEGATIVE 12/23/23 04:30: WBC 11.4 H, RBC 4.90, Hgb 13.2, Hct 43.0, MCV 87.8, MCH 26.9 L, MCHC 30.7 L, RDW Std Deviation 45.4 H, RDW Coeff of Celine 14.1, Plt Count 286, MPV 9.8, Immature Gran % (Auto) 0.500, Neut % (Auto) 80.0 H, Lymph % (Auto) 9.1 L, [place] % (Auto) 7.6, Eos % (Auto) 2.5, Baso % (Auto) 0.3, Absolute Neuts (auto) 9.1 H, Absolute Lymphs (auto) 1.04, Nucleated RBC % 0, Sodium 138, Potassium 3.6, Chloride 104, Carbon Dioxide 31.0, Anion Gap 3 L, BUN 9, Creatinine 0.67, Estim Creat Clear Calc 34.91, Est GFR (MDRD) Af Amer 106, Est GFR (MDRD) Non-Af 88, BUN/Creatinine Ratio 13.4, Glucose 113 H, Calcium 8.7, Total Bilirubin 0.40, AST 41 H, ALT 49, Alkaline Phosphatase 94, Total Protein 6.8, Albumin 3.2, Globulin 3.6, Albumin/Globulin Ratio 0.9 Radiography Diagnostic Testing: Radiology Impression Hip/Pelvis X-Ray 12/22/23 13:00 IMPRESSION: Nondisplaced basilar cervical fracture of the proximal left femur with mild superior migration of the distal femoral component. Electronically Signed: John Peter MD at 14:02 EDT , Chest X-Ray 12/22/23 13:40 IMPRESSION: No acute abnormality is seen. Electronically Signed: John Peter MD at 14:12 EDT , Rhythm Strip Rhythm Strip: Sinus Rhythm Rate: 67 Ectopy: None Physical Exam Narrative GENERAL: cooperative HEENT: Atraumatic; normocephalic EYES; Anicteric, Normal Conjunctiva NECK; supple, normal thyroid, RESPIRATORY: Diminished to auscultation CARDIOVASCULAR: Regular S1 S2, GI: soft, normoactive bowel sounds, : No Renal angle tenderness; EXTREMITIES: No edema, no clubbing, MUSCULOSKELETAL: no muscle wasting NEURO: Awake; no lateralizing signs. SKIN: No Rash PSYCH; Flat affect Assessment & Plan Assessment/Plan (1) Closed fracture of left hip: PLAN: Plan Patient is an 88-year-old lady with multiple comorbidities who slipped and fell in her garage resulting in subsequent left hip pain. Presented to the emergency department imaging studies demonstrated Nondisplaced basilar cervical fracture of the proximal left femur with mildsuperior migration of the distal femoral component.. Admitted to regular nursing floor with consultation placed orthopedic surgery 1. Fall with left hip fracture ? Imaging studies demonstrated nondisplaced basilar cervical fracture of the proximal left femur with mild superior migration of the distal femoral component.. Patient admitted to a monitored bed managed with immobilization pain meds with consultation placed to orthopedic surgery Patient preoperative assessment as performed by admitting physician 2. Dyslipidemia -Patient is on statin therapy, continued at home dose 3. Patient has disease ? Patient is on hydroxychloroquine 4. Sjogren's disease ? 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 Patient underwent surgical intervention 6. Depression with anxiety ? Patient is on venlafaxine 7. DVT prophylaxis ? SCDs for now with plans to initiate low molecular weight heparin following surgical intervention Time spent in the patient's overall evaluation,decision-making process, review of diagnostic data, adjustment of management, discussion with other providers, nursing nursing and ancillary staff involved in patient's care documentation, 52 Minutes Charges/Coding Visit Charges Inpatient E&M: 09850 [facility] Hosp L3
[2023-12-23] MEDS: 0.9% Normal Saline (1000mL) 1,000 ML 15 ML IV (11:10)
--- NOTE | 2023-12-23 12:00 | FEM_PTH ---
PATIENT: MICHAEL VALENZUELA LOC: MS3 U#:[id number] AGE/SX: 88/F ROOM: [facility]325 RE12/22/[address]: Dr. Vitor Chappell MD : [id number] BED: 1 DIS: 12/25/2023 SPEC #: [id number] RECD: 12/23/23 17:47 STATUS: AUGUSTO REQ #: [id number] ENRIQUE: 12/23/23 12:[address]: Haroon Pineda DEPT: SURGICAL PATHOLOGY RECD BY: Radha Huizar ENTERED: 12/24/23 10:11 SP TYPE: FEM HEAD OTHR DR: MD Dr. Leatha Claudio MD Dr. David Kittoe, MD Tissues: Femoral region, NOS Procedures: Decalcification bone/plaque Surgery Specimen Level V Comments: @ Ordering doctor for DEC edited from to @ by MAX at 12/24/23 1504 @ Ordering doctor for SUV edited from to @ by MAX at 12/24/23 1501 @ Submitting doctor edited from to @ by MAX at 12/24/23 1507 HEADER OPERATION: Left hemiarthroplasty, hip PRE-OP DIAGNOSIS: Closed fracture of left hip TISSUE SUBMITTED: Femoral head MICROSCOPIC DIAGNOSIS left hip bone and soft tissue, total hip replacement/resection: Femoral head and detached pieces of bone with focal area of hemorrhage. MAJO: 12/30/2023 MICROSCOPIC DESCRIPTION Slides are reviewed. GROSS DESCRIPTION Received is one container designated bone and soft tissue, left femoral head. The specimen consists of a rosa femoral head with portion of femoral neck. The femoral head measures 4.0 x 4.0 x 3.0 cm. The articular surface is smooth. Non-articular surface is irregular and hemorrhagic. Also present in the container are detached pieces of bone measuring in aggregate 6.0 x 3.0 x 2.0cm. No soft tissue is identified. Case Finisher sections are submitted in three cassettes after decalcification: 1 - detached pieces of bone, 2 &3 - femoral head. MAJO/ 12/24/23 TC: 5 CPT: 88009, 95440
--- NOTE | 2023-12-23 13:21 | PCM.CONS.GEN ---
Assessment & Plan Assessment/Plan (1) Left displaced femoral neck fracture: PLAN: Displaced and shortened left femoral neck fracture, medically cleared thorough discussion was had with the patient and a formal consent was signed to proceed with left hip hemiarthroplasty risk benefits and alternatives were reviewed including risk of bleeding infection nerve artery tissue damage need for further surgery continued pain postoperative stiffness and dislocation intraoperative fracture soft tissue injury unforeseen anesthetic risks or other risk. HPI Consult Data Date of Consult: 12/23/23 HPI Narrative HPI Narrative: MICHAEL VALENZUELA, is a 88 F very pleasant community ambulator independent living was walking in her garage she tried to step on a board of wood to crack it and she slipped and fell onto her left hip immediately having pain inability ambulate was taken to the emergency room where x-rays demonstrated displaced left femoral neck fracture she does admit to chronic back pain. [facility] Medical History (Updated 12/23/23 @ 13:[address] Haroon Pineda, DO) Anemia Anxiety and depression Arthritis Atrial fibrillation Back pain Behcet's disease Cardiology follow-up encounter Cataract Choroid melanoma of left eye Constipation Crohns disease Diverticulitis Dysphagia Exanthematous disorder Fibromyalgia GERD (gastroesophageal reflux disease) Glossodynia H/O Sjogren's disease High cholesterol History of diverticulitis History of echocardiogram History of IBS Hyperlipidemia Injury of back lap repair bladder injury Low back pain Lymphocytic colitis Meningitis Migraine headache Non-smoker Raynaud's disease Sleep apnea TIA (transient ischemic attack) Wears glasses Wears partial dentures Home Medications acetaminophen 500 mg tablet 500 mg PO Q6H PRN PRN Pain 03/29/16 [History Last Taken 09/26/18] aspirin 81 mg tablet,delayed release 81 mg PO DINNER [employer] health 03/29/16 [History Last Taken 10/31/21] atorvastatin 10 mg tablet 5 mg PO QODAY 03/29/16 [History Last Taken 09/26/18] calcium citrate 315 mg-vitamin D3 5 mcg (200 unit) tablet 2 tab PO BID 03/29/16 [History Last Taken 09/27/18] cyclosporine 0.05 % eye drops in a dropperette (Restasis) 1 drp EACH EYE BID 03/29/16 [History Last Taken 09/27/18] flaxseed oil 1,000 mg capsule 1,000 mg PO DAILY supplement 03/29/16 [History Last Taken 09/27/18] hydroxychloroquine 200 mg tablet 200 mg PO DAILYCM 03/29/16 [History Last Taken 09/26/18] melatonin 3 mg tablet 3 mg PO QHS 03/29/16 [History Last Taken 09/26/18] pilocarpine HCl 5 mg tablet 2.5 mg PO TID 03/29/16 [History Last Taken 09/27/18] pramipexole 0.125 mg tablet (Mirapex) 0.125 mg PO .1900, 2200 03/29/16 [History Last Taken 09/26/18] oxycodone-acetaminophen 5 mg-325 mg tablet (Percocet) 0.5 tab PO BID 09/19/16 [History Last Taken 09/26/18] fluticasone propionate 50 mcg/actuation nasal spray,suspension 2 spry NASAL DAILY 09/27/18 [History Last Taken 09/24/18] magnesium oxide 400 mg PO QHS 09/27/18 [History Last Taken 09/26/18] multivitamin 1 tab PO DAILY 09/27/18 [History Last Taken 09/26/18] venlafaxine 150 mg capsule,extended release 24 hr 75 mg PO DAILY anxiety 09/27/18 [History Last Taken 09/27/18] vitamin B complex 1 tab PO DAILY 09/27/18 [History Last Taken 09/26/18] white petrolatum-mineral oil 94 %-3 % eye ointment (Systane Nighttime) 3.5 g OP DAILY dry eye 09/27/18 [History Last Taken 09/26/18] pregabalin 25 mg capsule (Lyrica) 25 mg PO TID 08/16/21 [History Last Taken Unknown] zinc 50 mg tablet 50 mg PO DAILY 10/31/21 [History Last Taken Unknown] albuterol sulfate 90 mcg/actuation aerosol inhaler (Ventolin HFA) 2 puff inhalation Q4H PRN shortness of breath or wheezing #8.5 grams 02/03/23 [Rx Last Taken Unknown] lubiprostone 24 mcg capsule (Amitiza) 24 mcg PO DAILY #30 caps 12/14/23 [Rx Last Taken Unknown] Allergy/AdvReac Type Severity Reaction Status Date / Time amoxicillin Allergy Rash Verified 05/13/23 14:53 difluprednate [From Durezol] Allergy Other Verified 05/13/23 14:53 methylprednisolone Allergy Rash Verified 05/13/23 14:53 Penicillins Allergy Unknown Verified 05/13/23 14:53 prednisolone Allergy Swelling Verified 05/13/23 14:53 sucralfate [From Carafate] Allergy restless Verified 05/13/23 14:53 legs diphenhydramine AdvReac Intermediate Other Verified 05/13/23 14:53 [From Benadryl] amitriptyline AdvReac sleepiness Verified 05/13/23 14:53 citalopram AdvReac Diarrhea Verified 05/13/23 14:53 codeine AdvReac Nausea Verified 05/13/23 14:53 dexamethasone AdvReac Other Verified 05/13/23 14:53 duloxetine HCl AdvReac Diarrhea Verified 05/13/23 14:53 [From Cymbalta] Iodinated Contrast Media AdvReac unknown Verified 05/13/23 14:53 [Iodinated Contrast- Oral and IV Dye] lamotrigine [From Lamictal] AdvReac DRUGGED Verified 05/13/23 14:53 FEELING metoclopramide HCl AdvReac INVOLUNTARY Verified 05/13/23 14:53 [From Reglan] BODY MOVEMENTS mirabegron [From Myrbetriq] AdvReac Other Verified 05/13/23 14:53 promethazine HCl AdvReac INVOLUNTARY Verified 05/13/23 14:53 [From Phenergan] BODY MOVEMENTS sertraline HCl [From Zoloft] AdvReac Diarrhea Verified 05/13/23 14:53 sulfamethoxazole AdvReac FELT Verified 05/13/23 14:53 [From Bactrim] WEIRD, HEAD NUMB, FELT DRUGGED, SHAKEY, NAUSEATED trimethoprim [From Bactrim] AdvReac FELT Verified 05/13/23 14:53 WEIRD, HEAD NUMB, FELT DRUGGED, SHAKEY, NAUSEATED Family History (Updated 12/22/23 @ 14:[address] Radha Cortez MD) Mother Diabetes Breast cancer Arthritis Asthma auto immune disease Father Heart disease Hypertension Hyperlipidemia CVA (cerebral vascular accident) Arthritis Surgical History H/O adenoidectomy H/O colonoscopy H/O cystoscopy H/O dilation and curettage H/O endoscopy H/O vaginal hysterectomy History of cholecystectomy History of tonsillectomy Hx of appendectomy Hx of bilateral cataract extraction Hx of eye surgery Social History household members: none housing: house Smoking Status: Never smoker alcohol intake: never substance use type: does not use Physical Exam Const alert, oriented x3 and no apparent distress Extremity Extremity Narrative: Left hip there is no ecchymosis erythema or open wounds compartments are soft she is able to plantarflex and dorsiflex her ankle she has positive logroll no tenderness about the knee or ankle. Lab / Micro Data 12/23/23 04:30 12/23/23 04:30 Labs: Laboratory Results - last 24 hr 12/22/23 13:26: Blood Type O POSITIVE, Antibody Screen NEGATIVE 12/23/23 04:30: WBC 11.4 H, RBC 4.90, Hgb 13.2, Hct 43.0, MCV 87.8, MCH 26.9 L, MCHC 30.7 L, RDW Std Deviation 45.4 H, RDW Coeff of Celine 14.1, Plt Count 286, MPV 9.8, Immature Gran % (Auto) 0.500, Neut % (Auto) 80.0 H, Lymph % (Auto) 9.1 L, [place] % (Auto) 7.6, Eos % (Auto) 2.5, Baso % (Auto) 0.3, Absolute Neuts (auto) 9.1 H, Absolute Lymphs (auto) 1.04, Nucleated RBC % 0, Sodium 138, Potassium 3.6, Chloride 104, Carbon Dioxide 31.0, Anion Gap 3 L, BUN 9, Creatinine 0.67, Estim Creat Clear Calc 34.91, Est GFR (MDRD) Af Amer 106, Est GFR (MDRD) Non-Af 88, BUN/Creatinine Ratio 13.4, Glucose 113 H, Calcium 8.7, Total Bilirubin 0.40, AST 41 H, ALT 49, Alkaline Phosphatase 94, Total Protein 6.8, Albumin 3.2, Globulin 3.6, Albumin/Globulin Ratio 0.9 Rhythm Strip Rhythm Strip: Sinus Rhythm Rate: 67 Ectopy: None Imaging Radiology Impression Hip/Pelvis X-Ray 12/22/23 13:00 IMPRESSION: Nondisplaced basilar cervical fracture of the proximal left femur with mild superior migration of the distal femoral component. Electronically Signed: John Peter MD at 14:02 EDT , Chest X-Ray 12/22/23 13:40 IMPRESSION: No acute abnormality is seen. Electronically Signed: John Peter MD at 14:12 EDT ,
[2023-12-23] MEDS: Cefazolin 2 GM in 0.9% Normal Saline (100mL Bag) 100 ML IV (13:35)
[2023-12-23] MEDS: TRANEXAMIC ACID 1,000 MG in 0.9% Normal Saline (100mL Bag) 100 ML 440 MG IV (13:45)
--- NOTE | 2023-12-23 15:07 | CASEMGMT ---
RN CM NOTE: RN CM to room to complete initial assessment x 2 today. Pt remains out of room @ OR. Assessment to be completed at a later time. Gayatri BSN MIGUEL CM
--- NOTE | 2023-12-23 15:22 | OP.PCM_ITS ---
Operative Report Date of Procedure: 12/23/23 Preoperative diagnosis: Left hip femoral neck fracture displaced Postoperative diagnosis: Same Procedure: Right hip hemiarthroplasty Implants: [place]ly Accolade II stem size 2 132 degree neck angle +4 neck length 42 mm outer diameter bipolar head Anesthesia: General l EBL: 175 cc Complications: None Condition: Stable to PACU Indication for procedure: This is a 88-year-old female patient ground-level fall sustained displaced left femoral neck fracture. plans for definitive hemiarthro plasty were discussed including risks benefits and alternatives of the procedure were reviewed with the patient including risk of bleeding infection nerve artery tissue damage need for further surgery continue pain postoperative hip precaution restrictions leg length discrepancy and dislocation. Procedure: Patient was met in the preoperative holding area once again the operative extremity was identified by both patient and physician and was marked. Patient was met by anesthesia and brought to the operating room where anesthesia was started . The patient was then positioned in the lateral de cubitus position on a well-padded pegboard with an axillary roll. All bony prominences were checked and padded. The patient was prepped and draped in the usual sterile fashion. A timeout was called to ensure the proper patient procedure and extremity were being contemplated. Anatomic landmarks were palpated and marked for a standard posterior lateral approach. A timeout was called to ensure the proper patient procedure and extremity were being contemplated. A 10 blade scalpel was used to make a posterior incision through the skin and subcutaneous tissue. In retractors were used and electrocautery was used to maintain meticulous hemostasis and dissect full-thickness flaps until the gluteal fascia was reached. The gluteal fascia was incised in line with the gluteal fibers. The bursal tissue was then freed from the underside and a Charnley retractor was placed. The fatpad was elevated off of the external rotators with electrocautery and the external rotators were dissected off of the greater trochanter including the piriformis and were tagged with #1 Ethibond for later repair. The joint capsule opened with posterior trapdoor technique. A femoral neck cutting guide was used to shilpa the neck with a Bovie and an oscillating saw was used to complete the femoral neck cut. the fracture was visualized and with the use of a corkscrew and a skid the femoral head was removed and sized. We then trialed with the matching sizes . Hohmann was placed around the lesser trochanter. A femoral elevator was used. As well as a pointed wide Hohmann around the lesser trochanter and a Hohmann to help retract the gluteus medius. A box chisel was used to remove excess lateral neck followed by a canal finder and a lateralizing reamer. This was followed by sequential broaches. Attention was made of the version within the canal. Once the final broach was seated we then trialed and reduced the hip it was determined that a 132 degree neck angle with a +4 neck length was the appropriate size. We then checked stability with shuck testing as well as flexion and interminal rotation then proceeded with hip extension and checked leg lengths at the knees and heels. At this point trials were removed. The femoral stem was inserted. We re-trialed and then proceeded to impact the femoral head onto the Nick taper. We then surgically reduce the hip check stability again and leg lengths and were satisfied. irricept rinse was allowed to sit for 1 minutes while everyone changed their gloves. Thorough irrigation was performed. Followed by closure of the external rotators with #2 FiberWire followed by closure of gluteal fascia with #1 Ethibond. 0 Vicryl fat stitches and 2-0 Vicryl subcutaneous stitches and shantel in the skin. Dressing was applied in the form of silverlon dressing and an abduction pillow was placed. Patient tolerated the procedure well there was no intraoperative complications all counts were correct and the patient was brought back to the PACU in stable condition
--- NOTE | 2023-12-23 15:35 | RAD_ITS ---
STUDY: X-RAY - PELVIS AND LEFT HIP REASON FOR EXAM: Female, 88 years old. post op TECHNIQUE: 2 views of the pelvis and hip. COMPARISON: December 22, 2023 FINDINGS: Left hip prosthesis has been placed in anatomic alignment and position. Surgical shantel are seen in the soft tissues at the operative site RAD/Hip Min 2 Views (Portable) IMPRESSION: Status post left hip prosthesis placement. Electronically Signed: Haim Garcia MD at 17:21 EDT ,
--- NOTE | 2023-12-23 15:41 | PN.ORTHO_ITS ---
Subjective Subjective Patient seen and examined in recovery room she is awake no acute distress. Objective Data Objective Data Vital Signs: Vital Signs Temp Pulse Resp BP Pulse Ox O2 Del Method O2 Flow Rate 98.7 F 84 16 109/58 L 98 Nasal Cannula 2 12/23/23 08:28 12/23/23 08:28 12/23/23 08:28 12/23/23 08:28 12/23/23 08:28 12/23/23 08:28 12/23/23 08:28 FiO2 94 12/23/23 08:25 Oxygen Flow Rate (L/min) 2 Oxygen Delivery Method Nasal Cannula Weight: 114 lb 7.777 oz Body Mass Index (BMI) 23.9 Intake & Output: Intake and Output for Last 24 Hours 12/21/23 12/22/23 12/23/23 23:59 23:59 23:59 Intake Total 200 / 200 230 / 230 Output Total 200 / 900 1300 / 1300 Balance 0 / -700 -1070 / -1070 Lab / Micro Data 12/23/23 04:30 12/23/23 04:30 Labs: Laboratory Results - last 24 hr 12/23/23 04:30: WBC 11.4 H, RBC 4.90, Hgb 13.2, Hct 43.0, MCV 87.8, MCH 26.9 L, MCHC 30.7 L, RDW Std Deviation 45.4 H, RDW Coeff of Celine 14.1, Plt Count 286, MPV 9.8, Immature Gran % (Auto) 0.500, Neut % (Auto) 80.0 H, Lymph % (Auto) 9.1 L, [place]cock % (Auto) 7.6, Eos % (Auto) 2.5, Baso % (Auto) 0.3, Absolute Neuts (auto) 9.1 H, Absolute Lymphs (auto) 1.04, Nucleated RBC % 0, Sodium 138, Potassium 3.6, Chloride 104, Carbon Dioxide 31.0, Anion Gap 3 L, BUN 9, Creatinine 0.67, Estim Creat Clear Calc 34.91, Est GFR (MDRD) Af Amer 106, Est GFR (MDRD) Non-Af 88, BUN/Creatinine Ratio 13.4, Glucose 113 H, Calcium 8.7, Total Bilirubin 0.40, AST 41 H, ALT 49, Alkaline Phosphatase 94, Total Protein 6.8, Albumin 3.2, Globulin 3.6, Albumin/Globulin Ratio 0.9 Rhythm Strip Rhythm Strip: Sinus Rhythm Rate: 67 Ectopy: None Physical Exam Const alert, oriented x3 and no apparent distress General Appearance: cooperative Extremity Extremity Narrative: Left hip dressing clean dry intact she is neurovascular intact EHL tibialis anterior gastrocsoleus intact sensation light touch 2/4 pedal pulses compartments soft Assessment & Plan Assessment/Plan (1) Left displaced femoral neck fracture: PLAN: Plan Postop day #0 left hip hemiarthroplasty for displaced femoral neck fracture PT OT weightbearing as tolerated with standard posterior hip precautions DVT prophylaxis SCDs JARED hose Eliquis 2.5 mg twice daily for 3 weeks postop Oxycodone 2.5 to 5 mg p.o. every 4 hours for pain Tylenol as needed also Patient would likely benefit from rehab or transitional care before returning home Patient should follow-up with me in the office 2 weeks for wound check and staple removal, if she is still in the rehab facility or transitional care at [facility] am happy to see her there.
--- NOTE | 2023-12-23 15:54 | SUR.PHASEI ---
iv restarted at 1525, reason for missed BP. See vitals, remained a&O and stable vs.
[2023-12-23 15:58] LABS: Hematocrit 41.6 % (37-47); Hemoglobin 13.2 g/dL (12.0-15.0); Mean Corp Hgb Conc 31.7 g/dL (32-36); Mean Corpuscular Hgb 28.1 pg (27.0-32.0); Mean Corpuscular Volume 88.7 fL (81-99); Mean Platelet Vol. 9.8 fl (6.2-12.0); Platelet Count 276 K/mm3 (150-450); RBC Distribution Width CV 14.2 % (11.6-14.6); RBC Distribution Width SD 46.2 fl (35.1-43.9); Red Blood Count 4.69 M/mm3 (4.2-5.4); White Blood Count 23.9 K/mm3 (4.4-11.0)
[2023-12-23] MEDS: Lactated Ringers 1,000 ML 15 ML IV (16:05)
--- NOTE | 2023-12-23 16:19 | NURSING ---
All documentation by professional nursing tutor, Dora Lopez, reviewed by instructor of nursing, Kristi ANDREWSN, RN.
[2023-12-23] MEDS: Cefazolin 1 GM/50 ML BAG IV (16:37)
[2023-12-23] MEDS: Carboxymethylcellulose sodium gel dropperette 1 EACH EACH EYE ×2 (18:02→21:29)
[2023-12-23] MEDS: Pilocarpine HCl 5 MG Tablet PO ×2 (18:02→21:29)
[2023-12-23] MEDS: Pantoprazole Sodium 20 MG Tablet PO ×2 (18:02→21:29)
[2023-12-23] MEDS: oxyCODONE 5 MG Tablet 2.5 MG PO ×2 (18:11→23:42)
[2023-12-23] MEDS: Acetaminophen 325 MG Tablet 650 MG PO ×2 (18:11→23:42)
[2023-12-23] MEDS: Venlafaxine XR 75 MG Capsule PO (21:28)
[2023-12-23] MEDS: MELATONIN 3 MG TABLET PO (21:29)
[2023-12-23] MEDS: Senna/Docusate Sodium 1 Tablet 2 TABLET PO (21:29)
[2023-12-24] VITALS (9 sets, daily range): BP systolic 94–121; BP diastolic 43–53; PULSE 75–95; RESP 16–17; TEMP 36.4–37.2; O2SAT 89–99
[2023-12-24] MEDS: Cefazolin 1 GM/50 ML BAG IV ×2 (01:21→09:08)
[2023-12-24] MEDS: oxyCODONE 5 MG Tablet 2.5 MG PO ×2 (03:50→07:44)
[2023-12-24] MEDS: Acetaminophen 325 MG Tablet 650 MG PO ×4 (03:51→21:33)
[2023-12-24] MEDS: Pilocarpine HCl 5 MG Tablet PO ×3 (06:03→23:00)
[2023-12-24] MEDS: Morphine 4 MG/ML Syringe IV ×2 (06:09→09:07)
--- NOTE | 2023-12-24 07:47 | PN.HOSP_ITS ---
Reason for Visit Reason for Visit: Diagnoses Fracture of unspecified part of neck of left femur, initial encounter for closed fracture (12/22/23) Subjective Subjective Patient underwent left hip hemiarthroplasty on 2023. Seen this a.m. compla ins of some pain in the hip Objective Data Objective Data Vital Signs: Vital Signs Temp Pulse Resp BP Pulse Ox O2 Del Method O2 Flow Rate 98.9 F 79 16 106/47 L 98 Nasal Cannula 2 12/24/23 07:29 12/24/23 07:29 12/24/23 07:29 12/24/23 07:29 12/24/23 07:29 12/24/23 07:29 12/24/23 07:29 FiO2 2 12/23/23 23:32 Oxygen Flow Rate (L/min) 2 Oxygen Delivery Method Nasal Cannula Weight: 51.93 kg Body Mass Index (BMI) 23.9 Intake & Output: Intake and Output for Last 24 Hours 12/22/23 12/23/23 12/24/23 23:59 23:59 23:59 Intake Total 200 / 200 2530 / 2730 350 / 350 Output Total 200 / 900 1300 / 1400 200 / 200 Balance 0 / -700 1230 / 1330 150 / 150 Lab / Micro Data 12/24/23 07:28 12/23/23 04:30 Labs: Laboratory Results - last 24 hr 12/23/23 15:45: WBC 23.9 H, RBC 4.69, Hgb 13.2, Hct 41.6, MCV 88.7, MCH 28.1, MCHC 31.7 L, RDW Std Deviation 46.2 H, RDW Coeff of Celine 14.2, Plt Count 276, MPV 9.8 Radiography Diagnostic Testing: Radiology Impression Hip X-Ray 12/23/23 15:35 IMPRESSION: Status post left hip prosthesis placement. Electronically Signed: Haim Garcia MD at 17:21 EDT , Rhythm Strip Rhythm Strip: Sinus Rhythm Rate: 67 Ectopy: None Physical Exam Narrative GENERAL: cooperative HEENT: Atraumatic; normocephalic EYES; Anicteric, Normal Conjunctiva NECK; supple, normal thyroid, RESPIRATORY: Diminished to auscultation CARDIOVASCULAR: Regular S1 S2, GI: soft, normoactive bowel sounds, : No Renal angle tenderness; EXTREMITIES: No edema, no clubbing, MUSCULOSKELETAL: no muscle wasting NEURO: Awake; no lateralizing signs. SKIN: No Rash PSYCH; Flat affect Assessment & Plan Assessment/Plan (1) Closed fracture of left hip: PLAN: Plan Patient is an 88-year-old lady with multiple comorbidities who slipped and fell in her garage resulting in subsequent left hip pain. Presented to the emergency department imaging studies demonstrated Nondisplaced basilar cervical fracture of the proximal left femur with mildsuperior migration of the distal femoral component.. Admitted to regular nursing floor with consultation placed orthopedic surgery 1. Fall with left hip fracture ? Imaging studies demonstrated nondisplaced basilar cervical fracture of the proximal left femur with mild superior migration of the distal femoral component.. Patient admitted to a monitored bed managed with immobilization pain meds with consultation placed to orthopedic surgery ? 12/24/2023 patient underwent left hemiarthroplasty by Dr. Pineda the day prior. Seen this a.m. complains of significant pain. Requested for PT OT Patient preoperative assessment as performed by admitting physician 2. Dyslipidemia -Patient is on statin therapy, continued at home dose 3. Patient has disease ? Patient is on hydroxychloroquine 4. Sjogren's disease ? 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 Patient underwent surgical intervention 6. Depression with anxiety ? Patient is on venlafaxine 7. DVT prophylaxis ? SCDs for now with plans to initiate low molecular weight heparin following surgical intervention ? 12/24/2023 started on apixaban 2.5 mg p.o. twice daily for DVT prophylax 8. Anemia ? Secondary to combination of anemia of chronic disorder as well as post op losses. Monitoring H&H with plans to transfuse if patient is deemed to be sympt omatic or hemoglobin falls below 7. Time spent in the patient's overall evaluation,decision-making process, review of diagnostic data, adjustment of management, discussion with other providers, nursing nursing and ancillary staff involved in patient's care documentation, 50 Minutes Charges/Coding Visit Charges Inpatient E&M: 85585 Subs Hosp L3
[2023-12-24 08:24] LABS: Absolute Neutrophil Count 11.8 X10^3/uL (2.0-7.7); Basophil# 0.04 X10^3/uL; Basophil% 0.3 % (0-1); Eosinophil# 0.21 X10^3/uL; Eosinophils% 1.5 % (0-5); Hematocrit 36.2 % (37-47); Hemoglobin 11.1 g/dL (12.0-15.0); Lymphocyte % 6.3 % (19-41); Mean Corp Hgb Conc 30.7 g/dL (32-36); Mean Corpuscular Hgb 26.8 pg (27.0-32.0); Mean Corpuscular Volume 87.4 fL (81-99); Mean Platelet Vol. 10.5 fl (6.2-12.0); Monocyte# 1.14 X10^3/uL; NRBC Flagged by Analyzer 0 % (0-5); Neutrophil # 11.82 X10^3/uL (2.7-7.7); Neutrophil % 83.3 % (47-70); Platelet Count 234 K/mm3 (150-450); RBC Distribution Width CV 14.2 % (11.6-14.6); RBC Distribution Width SD 45.5 fl (35.1-43.9); Red Blood Count 4.14 M/mm3 (4.2-5.4); White Blood Count 14.2 K/mm3 (4.4-11.0)
[2023-12-24] MEDS: Calcium Carb/Vitamin D 1 TABLET Tablet 2 TABLET PO ×2 (08:57→15:57)
[2023-12-24] MEDS: Senna/Docusate Sodium 1 Tablet 2 TABLET PO ×2 (08:57→22:59)
[2023-12-24] MEDS: Fluticasone 0.05% 1 SPRAY NASAL.SRY 2 SPRAY NASAL (08:58)
[2023-12-24] MEDS: APIXABAN 2.5 MG TABLET (WCH) PO ×2 (08:58→22:59)
[2023-12-24] MEDS: Venlafaxine XR 75 MG Capsule PO (08:58)
[2023-12-24] MEDS: Atorvastatin Calcium 10 MG Tablet 5 MG PO (08:58)
[2023-12-24] MEDS: Pantoprazole Sodium 20 MG Tablet PO ×2 (09:05→23:00)
[2023-12-24] MEDS: 0.9% Saline Lock 10 ML Syringe IV (09:07)
[2023-12-24 09:46] LABS: Anion Gap 7 (5-15); BUN 10 mg/dL (7-18); BUN/Creat Ratio 17.5 RATIO (10-20); Calcium,Total 8.2 mg/dL (8.5-10.1); Chloride 105 mmol/L (98-107); Creatinine, Serum 0.57 mg/dL (0.55-1.02); EST Glomerular Filtration Rate 106 mL/min (>60); Est Glom Filt Rate - Afr Amer 128 mL/min (>60); Estimated Creatinine Clearance 34.91 ml/min; Glucose 98 mg/dL (74-106); Phosphorus 2.5 mg/dL (2.5-4.9); Potassium 3.5 mmol/L (3.5-5.1); Sodium Level 136 mmol/L (136-145)
--- NOTE | 2023-12-24 10:58 | CASEMGMT ---
Social Work- Clinician met with pt and pt brother, whom pt gave permission to speak in front of to provide discharge education. Clinician printed a SNF list via [employer] and provided to pt. Pt selected [facility] as [facility] choice facility. Referral was provided via [employer] by Liza Deal to f/u with pt regarding pending referral status.
[2023-12-24] MEDS: oxyCODONE 5 MG Tablet PO ×3 (11:55→21:34)
--- NOTE | 2023-12-24 13:00 | CASEMGMT ---
RN?CM?HOME INSURANCE AGENT?CM?to room to meet with patient for initial transition planning/care coordination?assessment.?RN?CM?introduced self and role at [facility].? Pt voices understanding and consents to?assessment?at this time.? Pt resting in bed in no distress at this time.? Pt is A/O at this time and answers all questions appropriately.?? Care providers, pharmacy, and demographics verified/updated at this time. PCP: Dr Kincaid Specialists:Dr Morales-cardiology, Dr Portillo-neurology, Dr Hoyt-GI, Dr Sandra Payne-pulmonology, Dr To-urology, Opthalmalogy Preferred Pharmacy: [facility] Insurance: [employer] Prescription Benefit:?yes LNOK: Daughter, Ida. Pt is and her son was killed in MVA last year. Living Arrangements: Lives alone. Was independent w/ADL's and IADL's prior to fall/fx. Transportation:?Pt, family, friends DME: States has the following DME:?stair lift, BP machine, medical alert, glucometer, RTS, grab bars. Pt has a CPAPbut no longer uses it. She also has a walker but was not using it prior to fall. HHC/SNF: Pt wishes to go to SNF @ [facility]. [facility] working on this. PLAN:??SNF Gayatri ANDREWSN?RN?CM
--- NOTE | 2023-12-24 15:03 | CASEMGMT ---
Social Work TCU is able to accept pt tomorrow. SW met with pt and updated and pt is agreeable to this plan. With pt permission, phone call to pt's dgt Ida and updated on discharge plan and she is agreeable. Plan: TCU, can admit on Thursday DOC [facility]
[2023-12-24] MEDS: Carboxymethylcellulose sodium gel dropperette 1 EACH EACH EYE ×2 (15:57→22:59)
[2023-12-24] MEDS: Aspirin E.C. 81 MG Tablet PO (15:58)
[2023-12-24] MEDS: Pramipexole Di-HCl 0.125 MG Tablet PO ×3 (18:11→23:43)
[2023-12-24] MEDS: Pregabalin 25 MG Capsule PO ×3 (18:12→23:43)
[2023-12-24] MEDS: MELATONIN 3 MG TABLET PO (23:00)
[2023-12-25 05:00] VITALS: BP 100/51; PULSE 81; RESP 16; TEMP 36.8; O2SAT 97
[2023-12-25] MEDS: Pilocarpine HCl 5 MG Tablet PO (05:07)
[2023-12-25] MEDS: oxyCODONE 5 MG Tablet 2.5 MG PO (05:17)
[2023-12-25] MEDS: Acetaminophen 325 MG Tablet 650 MG PO ×2 (05:19→12:30)
[2023-12-25 06:00] VITALS: BMI 24.0
[2023-12-25 06:37] VITALS: BP 108/53
--- NOTE | 2023-12-25 07:33 | PN.HOSP_ITS ---
Reason for Visit Reason for Visit: Diagnoses Fracture of unspecified part of neck of left femur, initial encounter for closed fracture (12/22/23) Subjective Subjective Postoperative day 2 following left hemiarthroplasty. Patient complains of 5 pa in control not being adequate adjusted her pain medication regimen Objective Data Objective Data Vital Signs: Vital Signs Temp Pulse Resp BP Pulse Ox O2 Del Method O2 Flow Rate 98.3 F 81 16 108/53 L 97 Nasal Cannula 2 12/25/23 05:00 12/25/23 05:00 12/25/23 05:00 12/25/23 06:37 12/25/23 05:00 12/25/23 05:00 12/25/23 05:00 FiO2 2 12/23/23 23:32 Oxygen Flow Rate (L/min) 2 Oxygen Delivery Method Nasal Cannula Weight: 51.93 kg Body Mass Index (BMI) 24.0 Intake & Output: Intake and Output for Last 24 Hours 12/23/23 12/24/23 12/25/23 23:59 23:59 23:59 Intake Total 2530 / 2730 1713.25 / 1913.25 300 / 300 Output Total 1300 / 1400 725 / 725 Balance 1230 / 1330 988.25 / 1188.25 300 / 300 Lab / Micro Data 12/24/23 07:28 12/24/23 07:28 Labs: Laboratory Results - last 24 hr 12/24/23 07:28: WBC 14.2 H, RBC 4.14 L, Hgb 11.1 L, Hct 36.2 L, MCV 87.4, MCH 26.8 L, MCHC 30.7 L, RDW Std Deviation 45.5 H, RDW Coeff of Celine 14.2, Plt Count 234, MPV 10.5, Immature Gran % (Auto) 0.600, Neut % (Auto) 83.3 H, Lymph % (Auto) 6.3 L, [place] % (Auto) 8.0, Eos % (Auto) 1.5, Baso % (Auto) 0.3, Absolute Neuts (auto) 11.8 H, Absolute Lymphs (auto) 0.90, Nucleated RBC % 0, Sodium 136, Potassium 3.5, Chloride 105, Carbon Dioxide 24.0, Anion Gap 7, BUN 10, Crea tinine 0.57, Estim Creat Clear Calc 34.91, Est GFR (MDRD) Af Amer 128, Est GFR (MDRD) Non-Af 106, BUN/Creatinine Ratio 17.5, Glucose 98, Calcium 8.2 L, Phosphorus 2.5, Magnesium 2.0 Rhythm Strip Rhythm Strip: Sinus Rhythm Rate: 67 Ectopy: None Physical Exam Narrative GENERAL: cooperative HEENT: Atraumatic; normocephalic EYES; Anicteric, Normal Conjunctiva NECK; supple, normal thyroid, RESPIRATORY: Diminished to auscultation CARDIOVASCULAR: Regular S1 S2, GI: soft, normoactive bowel sounds, : No Renal angle tenderness; EXTREMITIES: No edema, no clubbing, MUSCULOSKELETAL: no muscle wasting NEURO: Awake; no lateralizing signs. SKIN: No Rash PSYCH; Flat affect Assessment & Plan Assessment/Plan (1) Closed fracture of left hip: PLAN: Plan Patient is an 88-year-old lady with multiple comorbidities who slipped and fell in her garage resulting in subsequent left hip pain. Presented to the emergency department imaging studies demonstrated Nondisplaced basilar cervical fracture of the proximal left femur with mildsuperior migration of the distal femoral component.. Admitted to regular nursing floor with consultation placed orthopedic surgery 1. Fall with left hip fracture ? Imaging studies demonstrated nondisplaced basilar cervical fracture of the proximal left femur with mild superior migration of the distal femoral component.. Patient admitted to a monitored bed managed with immobilization pain meds with consultation placed to orthopedic surgery ? 12/24/2023 patient underwent left hemiarthroplasty by Dr. Pineda the day prior. Seen this a.m. complains of significant pain. Requested for PT OT ? 12/25/2023;Postoperative day 2 following left hemiarthroplasty. Patient complains of 5 pain control not being adequate adjusted her pain medication regimen Patient preoperative assessment as performed by admitting physician 2. Dyslipidemia -Patient is on statin therapy, continued at home dose 3. Patient has disease ? Patient is on hydroxychloroquine 4. Sjogren's disease ? 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 Patient underwent surgical intervention 6. Depression with anxiety ? Patient is on venlafaxine 7. DVT prophylaxis ? SCDs for now with plans to initiate low molecular weight heparin following surgical intervention ? 12/24/2023 started on apixaban 2.5 mg p.o. twice daily for DVT prophylax 8. Anemia ? Secondary to combination of anemia of chronic disorder as well as post op losses. Monitoring H&H with plans to transfuse if patient is deemed to be symptomatic or hemoglobin falls below 7. Time spent in the patient's overall evaluation,decision-making process, review of diagnostic data, adjustment of management, discussion with other providers, nursing nursing and ancillary staff involved in patient's care documentation, 35 Minutes
[2023-12-25 07:43] VITALS: O2SAT 92
[2023-12-25] MEDS: Senna/Docusate Sodium 1 Tablet 2 TABLET PO (08:43)
[2023-12-25] MEDS: Calcium Carb/Vitamin D 1 TABLET Tablet 2 TABLET PO (08:46)
[2023-12-25] MEDS: oxyCODONE 5 MG Tablet 10 MG PO (08:46)
[2023-12-25] MEDS: Fluticasone 0.05% 1 SPRAY NASAL.SRY 2 SPRAY NASAL (08:47)
[2023-12-25] MEDS: APIXABAN 2.5 MG TABLET (WCH) PO (08:47)
[2023-12-25] MEDS: Pantoprazole Sodium 20 MG Tablet PO (08:47)
[2023-12-25] MEDS: Venlafaxine XR 75 MG Capsule PO (08:47)
[2023-12-25 09:10] VITALS: BP 102/48; PULSE 82; RESP 16; TEMP 36.6; O2SAT 100
[2023-12-25 09:23] LABS: Absolute Lymphocyte Count 0.95 X10^3/uL (0.83-4.51); Absolute Neutrophil Count 12.1 X10^3/uL (2.0-7.7); Basophil# 0.02 X10^3/uL; Basophil% 0.1 % (0-1); Eosinophil# 0.23 X10^3/uL; Eosinophils% 1.6 % (0-5); Hematocrit 32.9 % (37-47); Hemoglobin 10.4 g/dL (12.0-15.0); Lymphocyte # 0.95 X10^3/ul (0.83-4.51); Lymphocyte % 6.5 % (19-41); Mean Corp Hgb Conc 31.6 g/dL (32-36); Mean Corpuscular Volume 85.5 fL (81-99); Mean Platelet Vol. 10.6 fl (6.2-12.0); Monocyte% 7.6 % (0-10); NRBC Flagged by Analyzer 0 % (0-5); Neutrophil # 12.12 X10^3/uL (2.7-7.7); Neutrophil % 83.6 % (47-70); Platelet Count 225 K/mm3 (150-450); RBC Distribution Width SD 43.5 fl (35.1-43.9); Red Blood Count 3.85 M/mm3 (4.2-5.4); White Blood Count 14.5 K/mm3 (4.4-11.0)
[2023-12-25 10:07] LABS: Anion Gap 6 (5-15); BUN 10 mg/dL (7-18); BUN/Creat Ratio 27.3 RATIO (10-20); Calcium,Total 8.6 mg/dL (8.5-10.1); Chloride 104 mmol/L (98-107); Creatinine, Serum 0.37 mg/dL (0.55-1.02); EST Glomerular Filtration Rate 177 mL/min (>60); Est Glom Filt Rate - Afr Amer 215 mL/min (>60); Estimated Creatinine Clearance 34.91 ml/min; Glucose 86 mg/dL (74-106); Potassium 3.7 mmol/L (3.5-5.1); Sodium Level 136 mmol/L (136-145)
--- NOTE | 2023-12-25 10:15 | CASEMGMT ---
Social Work SW did let [facility] know pt is not coming to them today, pt and family chose a different facility. HILLARY Boland
--- NOTE | 2023-12-25 10:27 | PCM.TXEXTCAR ---
Diet Diet Order/Speech Therapy: 12/23/23 17:38 Diet: Cardiac - Heart Healthy Is pt able to select menu?: Yes Wound(s) left hip: Wound Type: Surgical Incision Therapies Physical Therapy: Eval and Treat Occupational Therapy: Eval and Treat Problem/Diagnosis (1) Closed fracture of left hip: Status: Acute Code(s): S72.002A - Fracture of unspecified part of neck of left femur, initial encounter for closed fracture Plan Patient is an 88-year-old lady with multiple comorbidities who slipped and fell in her garage resulting in subsequent left hip pain. Presented to the emergency department imaging studies demonstrated Nondisplaced basilar cervical fracture of the proximal left femur with mildsuperior migration of the distal femoral component.. Admitted to regular nursing floor with consultation placed orthopedic surgery 1. Fall with left hip fracture ? Imaging studies demonstrated nondisplaced basilar cervical fracture of the proximal left femur with mild superior migration of the distal femoral component.. Patient admitted to a monitored bed managed with immobilization pain meds with consultation placed to orthopedic surgery ? 12/24/2023 patient underwent left hemiarthroplasty by Dr. Pineda the day prior. Seen this a.m. complains of significant pain. Requested for PT OT ? 12/25/2023;Postoperative day 2 following left hemiarthroplasty. Patient complains of 5 pain control not being adequate adjusted her pain medication regimen Patient preoperative assessment as performed by admitting physician 2. Dyslipidemia -Patient is on statin therapy, continued at home dose 3. Patient has disease ? Patient is on hydroxychloroquine 4. Sjogren's disease ? 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 Patient underwent surgical intervention 6. Depression with anxiety ? Patient is on venlafaxine 7. DVT prophylaxis ? SCDs for now with plans to initiate low molecular weight heparin following surgical intervention ? 12/24/2023 started on apixaban 2.5 mg p.o. twice daily for DVT prophylax 8. Anemia ? Secondary to combination of anemia of chronic disorder as well as post op losses. Monitoring H&H with plans to transfuse if patient is deemed to be symptomatic or hemoglobin falls below 7. Time spent in the patient's overall evaluation,decision-making process, review of diagnostic data, adjustment of management, discussion with other providers, nursing nursing and ancillary staff involved in patient's care documentation, 35 Minutes Allergies/Procedures Done in Hospital Allergies amoxicillin Allergy (Verified 05/13/23 14:53) Rash difluprednate [From Durezol] Allergy (Verified 05/13/23 14:53) Other methylprednisolone Allergy (Verified 05/13/23 14:53) Rash Penicillins Allergy (Verified 05/13/23 14:53) Unknown prednisolone Allergy (Verified 05/13/23 14:53) Swelling sucralfate [From Carafate] Allergy (Verified 05/13/23 14:53) restless legs diphenhydramine [From Benadryl] Adverse Reaction (Intermediate, Verified 05/13/23 14:53) Other Severe restless legs amitriptyline Adverse Reaction (Verified 05/13/23 14:53) sleepiness citalopram Adverse Reaction (Verified 05/13/23 14:53) Diarrhea codeine Adverse Reaction (Verified 05/13/23 14:53) Nausea dexamethasone Adverse Reaction (Verified 05/13/23 14:53) Other SORE MOUTH duloxetine HCl [From Cymbalta] Adverse Reaction (Verified 05/13/23 14:53) Diarrhea Iodinated Contrast Media [Iodinated Contrast- Oral and IV Dye] Adverse Reaction (Verified 05/13/23 14:53) unknown lamotrigine [From Lamictal] Adverse Reaction (Verified 05/13/23 14:53) DRUGGED FEELING metoclopramide HCl [From Reglan] Adverse Reaction (Verified 05/13/23 14:53) INVOLUNTARY BODY MOVEMENTS mirabegron [From Myrbetriq] Adverse Reaction (Verified 05/13/23 14:53) Other BLADDER INFLAMMATION AND SORE MOUTH promethazine HCl [From Phenergan] Adverse Reaction (Verified 05/13/23 14:53) INVOLUNTARY BODY MOVEMENTS sertraline HCl [From Zoloft] Adverse Reaction (Verified 05/13/23 14:53) Diarrhea sulfamethoxazole [From Bactrim] Adverse Reaction (Verified 05/13/23 14:53) FELT WEIRD, HEAD NUMB, FELT DRUGGED, SHAKEY, NAUSEATED trimethoprim [From Bactrim] Adverse Reaction (Verified 05/13/23 14:53) FELT WEIRD, HEAD NUMB, FELT DRUGGED, SHAKEY, NAUSEATED Type of Care/Length of Stay Estimated LOS: Convalescent Care Less Than 30 days Type of Care Needed: Skilled Rehab Potential: Good Prognosis: Good Additional Orders/Day of Discharge Day of Discharge: 12/25/23 Discharge Plan Admission Admit Date/Time: 12/22/23 13:55 Attending Provider: Vitor Chappell Primary Care Provider: Leatha Kincaid Consulting Providers: Radha Cortez Discharge Orders/Prescriptions Prescriptions: New acetaminophen 325 mg Tablet 650 mg PO Q4H PRN PRN (Reason: Fever, pain 1-10/10) Qty: 0 0RF sennosides-docusate sodium [Stool Softener-Stimulant Laxat] 8.6-50 mg Tablet 2 tab PO BID Qty: 0 0RF magnesium hydroxide 400 mg/5 mL Suspension 30 ml PO DAILY PRN PRN (Reason: Constipation) Qty: 0 0RF oxycodone 5 mg Tablet 5 mg PO Q4H PRN PRN (Reason: PAIN 4-6) Qty: 0 0RF Eliquis 5 mg Tablet 2.5 mg PO BID 30 Days Qty: 30 0RF Continued albuterol sulfate [Ventolin HFA] 90 mcg/actuation HFA aerosol inhaler 2 puff inhalation Q4H PRN (Reason: shortness of breath or wheezing) Qty: 8.5 6RF pilocarpine HCl 5 MG tablet 2.5 mg PO TID Patient Comments: eye drops atorvastatin 10 MG tablet 5 mg PO QODAY Patient Comments: cholesterol melatonin 3 MG tablet 3 mg PO QHS Patient Comments: sleep aid aspirin 81 MG tablet,delayed release (DR/EC) 81 mg PO DINNER Patient Comments: [employer] flaxseed oil 1,000 MG capsule 1,000 mg PO DAILY Patient Comments: [facility] pramipexole [Mirapex] 0.125 MG tablet 0.125 mg PO .1900, 2200 Patient Comments: PT TAKES 0.125 AT LUNCH AND OTHER 0.125 @ 2000 hydroxychloroquine 200 MG tablet 200 mg PO DAILYCM Patient Comments: arthritis cyclosporine [Restasis] 1 DROP dropperette 1 drp EACH EYE BID Patient Comments: tears calcium citrate-vitamin D3 1 EACH tablet 2 tab PO BID Patient Comments: calcium with vitamin D Rx Instructions: with breakfast and lunch oxycodone-acetaminophen [Percocet] 1 TABLET tablet 0.5 tab PO BID Patient Comments: pain fluticasone propionate 16 GM spray,suspension 2 spry NASAL DAILY Patient Comments: USE 2 SPRAYS IN EACH NOSTRIL ONCE DAILY. RINSE MOUTH AFTER USE. magnesium oxide 250 MG tablet 400 mg PO QHS multivitamin 1 EACH tablet 1 tab PO DAILY venlafaxine 150 MG capsule,extended release 24hr 75 mg PO DAILY Patient Comments: TAKE 1 CAPSULE BY MOUTH EVERY DAY vitamin B complex 1 EACH tablet 1 tab PO DAILY Systane Nighttime 3.5 GM ointment 3.5 g OP DAILY pregabalin [Lyrica] 25 mg Capsule 25 mg PO TID Patient Comments: take at 6pm, 9pm and 12am zinc 50 mg Tablet 50 mg PO DAILY lubiprostone [Amitiza] 24 mcg capsule 24 mcg PO DAILY Qty: 30 3RF Discontinued acetaminophen 500 MG tablet 500 mg PO Q6H PRN PRN (Reason: Pain) Patient Comments: pain Referrals / Follow Up: Leatha Kincaid MD [Primary Care Provider] - Within 2 Weeks Haroon Pineda DO [Med Staff - Active Staff] - Within 2 Weeks Disposition Disposition (needs filled in before D/C Order can be placed): Longterm Facility
--- NOTE | 2023-12-25 10:30 | PCM.DC.SUM ---
Providers Date of Admission: 12/22/23 Date of Discharge: 12/25/23 Primary Care Physician: Dr. Leatha Kincaid MD Reason For Visit: FALL, L HIP FRACTURE Diagnosis Discharge Diagnosis (1) Closed fracture of left hip: Status: Acute Code(s): S72.002A - Fracture of unspecified part of neck of left femur, initial encounter for closed fracture Plan Patient is an 88-year-old lady with multiple comorbidities who slipped and fell in her garage resulting in subsequent left hip pain. Presented to the emergency department imaging studies demonstrated Nondisplaced basilar cervical fracture of the proximal left femur with mildsuperior migration of the distal femoral component.. Admitted to regular nursing floor with consultation placed orthopedic surgery 1. Fall with left hip fracture ? Imaging studies demonstrated nondisplaced basilar cervical fracture of the proximal left femur with mild superior migration of the distal femoral component.. Patient admitted to a monitored bed managed with immobilization pain meds with consultation placed to orthopedic surgery ? 12/24/2023 patient underwent left hemiarthroplasty by Dr. Pineda the day prior. Seen this a.m. complains of significant pain. Requested for PT OT ? 12/25/2023;Postoperative day 2 following left hemiarthroplasty. Patient complains of 5 pain control not being adequate adjusted her pain medication regimen Patient preoperative assessment as performed by admitting physician 2. Dyslipidemia -Patient is on statin therapy, continued at home dose 3. Patient has disease ? Patient is on hydroxychloroquine 4. Sjogren's disease ? 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 Patient underwent surgical intervention 6. Depression with anxiety ? Patient is on venlafaxine 7. DVT prophylaxis ? SCDs for now with plans to initiate low molecular weight heparin following surgical intervention ? 12/24/2023 started on apixaban 2.5 mg p.o. twice daily for DVT prophylax 8. Anemia ? Secondary to combination of anemia of chronic disorder as well as post op losses. Monitoring H&H with plans to transfuse if patient is deemed to be symptomatic or hemoglobin falls below 7. Time spent in the patient's overall evaluation,decision-making process, review of diagnostic data, adjustment of management, discussion with other providers, nursing nursing and ancillary staff involved in patient's care documentation, 35 Minutes Medications at Discharge Home Medications aspirin 81 mg tablet,delayed release 81 mg PO DINNER [employer] [facility] 03/29/16 atorvastatin 10 mg tablet 5 mg PO QODAY 03/29/16 calcium citrate 315 mg-vitamin D3 5 mcg (200 unit) tablet 2 tab PO BID 03/29/16 cyclosporine 0.05 % eye drops in a dropperette (Restasis) 1 drp EACH EYE BID 03/29/16 flaxseed oil 1,000 mg capsule 1,000 mg PO DAILY supplement 03/29/16 hydroxychloroquine 200 mg tablet 200 mg PO DAILYCM 03/29/16 melatonin 3 mg tablet 3 mg PO QHS 03/29/16 pilocarpine HCl 5 mg tablet 2.5 mg PO TID 03/29/16 pramipexole 0.125 mg tablet (Mirapex) 0.125 mg PO .1900, 2200 03/29/16 oxycodone-acetaminophen 5 mg-325 mg tablet (Percocet) 0.5 tab PO BID 09/19/16 fluticasone propionate 50 mcg/actuation nasal spray,suspension 2 spry NASAL DAILY 09/27/18 magnesium oxide 400 mg PO QHS 09/27/18 multivitamin 1 tab PO DAILY 09/27/18 venlafaxine 150 mg capsule,extended release 24 hr 75 mg PO DAILY anxiety 09/27/18 vitamin B complex 1 tab PO DAILY 09/27/18 white petrolatum-mineral oil 94 %-3 % eye ointment (Systane Nighttime) 3.5 g OP DAILY dry eye 09/27/18 pregabalin 25 mg capsule (Lyrica) 25 mg PO TID 08/16/21 zinc 50 mg tablet 50 mg PO DAILY 10/31/21 albuterol sulfate 90 mcg/actuation aerosol inhaler (Ventolin HFA) 2 puff inhalation Q4H PRN shortness of breath or wheezing #8.5 grams 02/03/23 lubiprostone 24 mcg capsule (Amitiza) 24 mcg PO DAILY #30 caps 12/14/23 acetaminophen 325 mg tablet 650 mg (2 x 325 mg) PO Q4H PRN PRN Fever, pain 1-06/16 #0 tabs 12/25/23 apixaban 5 mg tablet (Eliquis) 2.5 mg (1/2 x 5 mg) PO BID 30 days #30 tabs 12/25/23 magnesium hydroxide 400 mg/5 mL oral suspension 30 ml PO DAILY PRN PRN Constipation #0 mL 12/25/23 oxycodone 5 mg tablet 5 mg PO Q4H PRN PRN PAIN 4-6 #0 tabs 12/25/23 sennosides 8.6 mg-docusate sodium 50 mg tablet (Stool Softener-Stimulant Laxative) 2 tab PO BID #0 tabs 12/25/23 Physical Exam Narrative GENERAL: cooperative HEENT: Atraumatic; normocephalic EYES; Anicteric, Normal Conjunctiva NECK; supple, normal thyroid, RESPIRATORY: Diminished to auscultation CARDIOVASCULAR: Regular S1 S2, GI: soft, normoactive bowel sounds, : No Renal angle tenderness; EXTREMITIES: No edema, no clubbing, MUSCULOSKELETAL: no muscle wasting NEURO: Awake; no lateralizing signs. SKIN: No Rash PSYCH; Flat affect Weight / BMI Weight Weight: 51.93 kg Body Mass Index (BMI) 24.0 ABG / Lab / Microbiology Data 12/25/23 08:08 12/25/23 08:08 Laboratory: Laboratory Results - last 24 hr 12/25/23 08:08: WBC 14.5 H, RBC 3.85 L, Hgb 10.4 L, Hct 32.9 L, MCV 85.5, MCH 27.0, MCHC 31.6 L, RDW Std Deviation 43.5, RDW Coeff of Celine 14.0, Plt Count 225, MPV 10.6, Immature Gran % (Auto) 0.600, Neut % (Auto) 83.6 H, Lymph % (Auto) 6.5 L, [place] % (Auto) 7.6, Eos % (Auto) 1.6, Baso % (Auto) 0.1, Absolute Neuts (auto) 12.1 H, Absolute Lymphs (auto) 0.95, Nucleated RBC % 0, Sodium 136, Potassium 3.7, Chloride 104, Carbon Dioxide 26.0, Anion Gap 6, BUN 10, Creatinine 0.37 L, Estim Creat Clear Calc 34.91, Est GFR (MDRD) Af Amer 215, Est GFR (MDRD) Non-Af 177, BUN/Creatinine Ratio 27.3 H, Glucose 86, Calcium 8.6 D/C Instructions Discharge Diet: No restrictions Discharge Activity: Return to Normal Activity Call your doctor if you observe: Fever of 101 or Higher, Shortness of breath, Fainting spells and Chest pain Meaningful Use Info Meaningful Use Meaningful Use Diagnoses (Choose all that apply): None applicable Ischemic Stroke Statin Dosing Therapy Reference: STATIN DOSE THERAPY REFERENCE: * Patients > 75 years receive moderate or high dose statin therapy. * Patients 75 years or YOUNGER should receive HIGH intensity statin dose unless contraindicated. You will be required to document reason for non-treatment if statin daily dose does not meet guidelines. HIGH DOSE STATIN THERAPY DAILY Atorvastatin > than or = to 40 mg Rosuvastatin > than or = to 20 mg Amlodipine + Atorvastatin > than or = to 2.5/40 mg Ezetimibe + Simvastatin 10/80 mg Simvastatin 80mg Discharge Plan Admission Admit Date/Time: 12/22/23 13:55 Attending Provider: Vitor Chappell Primary Care Provider: Leatha Kincaid Consulting Providers: Radha Cortez Discharge Orders/Prescriptions Prescriptions: New acetaminophen 325 mg Tablet 650 mg PO Q4H PRN PRN (Reason: Fever, pain 1-06/16) Qty: 0 0RF sennosides-docusate sodium [Stool Softener-Stimulant Laxat] 8.6-50 mg Tablet 2 tab PO BID Qty: 0 0RF magnesium hydroxide 400 mg/5 mL Suspension 30 ml PO DAILY PRN PRN (Reason: Constipation) Qty: 0 0RF oxycodone 5 mg Tablet 5 mg PO Q4H PRN PRN (Reason: PAIN 4-6) Qty: 0 0RF Eliquis 5 mg Tablet 2.5 mg PO BID 30 Days Qty: 30 0RF Continued albuterol sulfate [Ventolin HFA] 90 mcg/actuation HFA aerosol inhaler 2 puff inhalation Q4H PRN (Reason: shortness of breath or wheezing) Qty: 8.5 6RF pilocarpine HCl 5 MG tablet 2.5 mg PO TID Patient Comments: eye drops atorvastatin 10 MG tablet 5 mg PO QODAY Patient Comments: cholesterol melatonin 3 MG tablet 3 mg PO QHS Patient Comments: sleep aid aspirin 81 MG tablet,delayed release (DR/EC) 81 mg PO DINNER Patient Comments: [employer] flaxseed oil 1,000 MG capsule 1,000 mg PO DAILY Patient Comments: [facility] pramipexole [Mirapex] 0.125 MG tablet 0.125 mg PO .0, 2200 Patient Comments: PT TAKES 0.125 AT LUNCH AND OTHER 0.125 @ 2000 hydroxychloroquine 200 MG tablet 200 mg PO DAILYCM Patient Comments: arthritis cyclosporine [Restasis] 1 DROP dropperette 1 drp EACH EYE BID Patient Comments: tears calcium citrate-vitamin D3 1 EACH tablet 2 tab PO BID Patient Comments: calcium with vitamin D Rx Instructions: with breakfast and lunch oxycodone-acetaminophen [Percocet] 1 TABLET tablet 0.5 tab PO BID Patient Comments: pain fluticasone propionate 16 GM spray,suspension 2 spry NASAL DAILY Patient Comments: USE 2 SPRAYS IN EACH NOSTRIL ONCE DAILY. RINSE MOUTH AFTER USE. magnesium oxide 250 MG tablet 400 mg PO QHS multivitamin 1 EACH tablet 1 tab PO DAILY venlafaxine 150 MG capsule,extended release 24hr 75 mg PO DAILY Patient Comments: TAKE 1 CAPSULE BY MOUTH EVERY DAY vitamin B complex 1 EACH tablet 1 tab PO DAILY Systane Nighttime 3.5 GM ointment 3.5 g OP DAILY pregabalin [Lyrica] 25 mg Capsule 25 mg PO TID Patient Comments: take at 6pm, 9pm and 12am zinc 50 mg Tablet 50 mg PO DAILY lubiprostone [Amitiza] 24 mcg capsule 24 mcg PO DAILY Qty: 30 3RF Discontinued acetaminophen 500 MG tablet 500 mg PO Q6H PRN PRN (Reason: Pain) Patient Comments: pain Referrals / Follow Up: Leatha Kincaid MD [Primary Care Provider] - Within 2 Weeks Haroon Pineda DO [Med Staff - Active Staff] - Within 2 Weeks Disposition Disposition (needs filled in before D/C Order can be placed): [facility] Charges/Coding Visit Charges Inpatient E&M: 78566 Disch Hosp >30min
--- NOTE | 2023-12-25 10:43 | CASEMGMT ---
Addendum entered by Marlena Lewis 12/25/23 12:55: Social Work SW called pt's outpatient case manager Aurea Guevara([phone]) and let her know that pt is going to TCU today. HILLARY Boland Original Note: Social Work Pt is discharged to TCU today. SW faxed over all discharge paperwork to TCU. SW spoke w/Alessandra in TCU, it is anticipated that pt can go to this afternoon. SW let pt's bedside RN know, called daughter Ida to let her know, daughter is agreeable. ARMEN Castellon also did let pt know she will be going today, pt agreeable. Pt to TCU, skilled, today. HILLARY Boland
--- NOTE | 2023-12-25 11:11 | PHA.DC_ITS ---
Pharmacy [place] Med Reconciliation Pharmacy Service has performed discharge medication reconciliation for this patient. The patient's discharge medication list was reviewed for discrepancies and discrepancies were resolved. Medications at Discharge Home Medications aspirin 81 mg tablet,delayed release 81 mg PO DINNER [facility] 03/29/16 atorvastatin 10 mg tablet 5 mg PO QODAY 03/29/16 calcium citrate 315 mg-vitamin D3 5 mcg (200 unit) tablet 2 tab PO BID 03/29/16 cyclosporine 0.05 % eye drops in a dropperette (Restasis) 1 drp EACH EYE BID 03/29/16 flaxseed oil 1,000 mg capsule 1,000 mg PO DAILY supplement 03/29/16 hydroxychloroquine 200 mg tablet 200 mg PO DAILYCM 03/29/16 melatonin 3 mg tablet 3 mg PO QHS 03/29/16 pilocarpine HCl 5 mg tablet 2.5 mg PO TID 03/29/16 pramipexole 0.125 mg tablet (Mirapex) 0.125 mg PO .1900, 2200 03/29/16 oxycodone-acetaminophen 5 mg-325 mg tablet (Percocet) 0.5 tab PO BID 09/19/16 fluticasone propionate 50 mcg/actuation nasal spray,suspension 2 spry NASAL DAILY 09/27/18 magnesium oxide 400 mg PO QHS 09/27/18 multivitamin 1 tab PO DAILY 09/27/18 venlafaxine 150 mg capsule,extended release 24 hr 75 mg PO DAILY anxiety 09/27/18 vitamin B complex 1 tab PO DAILY 09/27/18 white petrolatum-mineral oil 94 %-3 % eye ointment (Systane Nighttime) 3.5 g OP DAILY dry eye 09/27/18 pregabalin 25 mg capsule (Lyrica) 25 mg PO TID 08/16/21 zinc 50 mg tablet 50 mg PO DAILY 10/31/21 albuterol sulfate 90 mcg/actuation aerosol inhaler (Ventolin HFA) 2 puff inhalation Q4H PRN shortness of breath or wheezing #8.5 grams 02/03/23 lubiprostone 24 mcg capsule (Amitiza) 24 mcg PO DAILY #30 caps 12/14/23 acetaminophen 325 mg tablet 650 mg (2 x 325 mg) PO Q4H PRN PRN Fever, pain 1- 10 #0 tabs 12/25/23 apixaban 5 mg tablet (Eliquis) 2.5 mg (1/2 x 5 mg) PO BID 30 days #30 tabs 12/25/23 magnesium hydroxide 400 mg/5 mL oral suspension 30 ml PO DAILY PRN PRN Constipation #0 mL 12/25/23 oxycodone 5 mg tablet 5 mg PO Q4H PRN PRN PAIN 4-6 #0 tabs 12/25/23 sennosides 8.6 mg-docusate sodium 50 mg tablet (Stool Softener-Stimulant Laxative) 2 tab PO BID #0 tabs 12/25/23
[2023-12-25] MEDS: Glycerin/Hypromellose/PEG400 15 ml Bottle EACH EYE (11:24)
[2023-12-25 11:36] VITALS: BP 115/55; PULSE 86; RESP 16; TEMP 36.7; O2SAT 97
[2023-12-25] MEDS: oxyCODONE 5 MG Tablet PO (12:30)
== END 2023-12-25 14:19 | disposition skilled nursing facility (03) | DRG 522 ==
LOC: ED 14:00 → MS3 15:44
PROVIDERS: Orthopaedic Surgery; Admitting Provider Family Medicine; Emergency Provider Emergency Medicine; PCP Internal Medicine; Visit Provider Internal Medicine
PROC: 0SRS0JA Replacement of Left Hip Joint, Femoral Surface with Synthetic Substitute, Uncemented, Open Approach (ICD-10-PCS; CPT 27125; principal; 2023-12-23 11:40)
DX: S72.002A Fracture of unspecified part of neck of left femur, initial encounter for closed fracture (principal); M35.2 Behcet's disease; D63.8 Anemia in other chronic diseases classified elsewhere; I48.0 Paroxysmal atrial fibrillation; G25.81 Restless legs syndrome; E78.00 Pure hypercholesterolemia, unspecified; F32.A Depression, unspecified; G47.33 Obstructive sleep apnea (adult) (pediatric); F41.9 Anxiety disorder, unspecified; I73.00 Raynaud's syndrome without gangrene; W18.09XA Striking against other object with subsequent fall, initial encounter; K59.09 Other constipation; K21.9 Gastro-esophageal reflux disease without esophagitis; M35.00 Sjogren syndrome, unspecified; Y92.59 Other trade areas as the place of occurrence of the external cause; Z66 Do not resuscitate; Z79.82 Long term (current) use of aspirin; Z96.642 Presence of left artificial hip joint
CPT/HCPCS: 36415; 71045; 73502; 80048; 80053; 83735; 84100; 85025; 85027; 86850; 86900; 86901; 88307; 88311; 93005; 94668; 97162; 97166; 99252; 99284; C1776; J7030; J7120; A4216; G0463; J2405

== ENCOUNTER 2023-12-25 14:38 | Inpatient (IN) | payer MEDICARE, BC, SELFPAY ==
[2023-12-25 14:50] VITALS: BP 112/43; PULSE 90; RESP 18; TEMP 36.4; O2SAT 94; BMI 23.5
--- NOTE | 2023-12-25 15:06 | HP.PCM_ITS ---
HPI - General General Date of Admission: 12/25/23 Date of Service: 12/25/23 Chief Complaint: Here for rehabilitation, strengthening. HPI Narrative 12/22/2023 MICHAEL VALENZUELA, is a 88 Female who presents to [facility] ED with fall, left hip pain. Tripped, fell in garage, unable to stand. Left hip pain. Morphine IV, Zofran IV given. X-ray showed left hip fracture. 12/22/2023 Admit to [facility]. Prepare for surgery. 12/23/[address] Pineda. 12/23/2023 Dr. Pineda performed left hip hemiarthroplasty. 12/24/2023 Some left hip pain. PT/OT. Eliquis 2.5mg bid for DVT prophylaxis. 12/25/2023 Pain 10. Adjust her pain medications. 12/25/2023 Admit to TCU with debility, here for rehabilitation, strengthening, prior to discharge home alone. [facility] Medical History Anemia Anxiety and depression Arthritis Atrial fibrillation Back pain Behcet's disease Cardiology follow-up encounter Cataract Choroid melanoma of left eye Constipation Crohns disease Diverticulitis Dysphagia Exanthematous disorder Fibromyalgia GERD (gastroesophageal reflux disease) Glossodynia H/O Sjogren's disease High cholesterol History of diverticulitis History of echocardiogram History of IBS Hyperlipidemia Injury of back lap repair bladder injury Low back pain Lymphocytic colitis Meningitis Migraine headache Non-smoker Raynaud's disease Sleep apnea TIA (transient ischemic attack) Wears glasses Wears partial dentures Home Medications aspirin 81 mg tablet,delayed release 81 mg PO DINNER heart [facility] 03/29/16 [History Last Taken 10/31/21] atorvastatin 10 mg tablet 5 mg PO QODAY cholesterol 03/29/16 [History Last Taken 09/26/18] calcium citrate 315 mg-vitamin D3 5 mcg (200 unit) tablet 2 tab PO BID supplement 03/29/16 [History Last Taken 09/27/18] cyclosporine 0.05 % eye drops in a dropperette (Restasis) 1 drp EACH EYE BID eye 03/29/16 [History Last Taken 09/27/18] flaxseed oil 1,000 mg capsule 1,000 mg PO DAILY supplement 03/29/16 [History Last Taken 09/27/18] hydroxychloroquine 200 mg tablet 200 mg PO DAILYCM arthritis 03/29/16 [History Last Taken 09/26/18] melatonin 3 mg tablet 3 mg PO QHS sleep 03/29/16 [History Last Taken 09/26/18] pilocarpine HCl 5 mg tablet 2.5 mg PO TID bp 03/29/16 [History Last Taken 09/27/18] pramipexole 0.125 mg tablet (Mirapex) 0.125 mg PO .1900, 2200 restless legs 03/29/16 [History Last Taken 09/26/18] oxycodone-acetaminophen 5 mg-325 mg tablet (Percocet) 0.5 tab PO BID 09/19/16 [History Last Taken 09/26/18] fluticasone propionate 50 mcg/actuation nasal spray,suspension 2 spry NASAL DAILY allergies 09/27/18 [History Last Taken 09/24/18] magnesium oxide 400 mg PO QHS supplement 09/27/18 [History Last Taken 09/26/18] multivitamin 1 tab PO DAILY vitamin 09/27/18 [History Last Taken 09/26/18] venlafaxine 150 mg capsule,extended release 24 hr 75 mg PO DAILY anxiety 09/27/18 [History Last Taken 09/27/18] vitamin B complex 1 tab PO DAILY vitamin 09/27/18 [History Last Taken 09/26/18] white petrolatum-mineral oil 94 %-3 % eye ointment (Systane Nighttime) 3.5 g OP DAILY dry eye 09/27/18 [History Last Taken 09/26/18] pregabalin 25 mg capsule (Lyrica) 25 mg PO TID neuropathy 08/16/21 [History Last Taken Unknown] zinc 50 mg tablet 50 mg PO DAILY supplement 10/31/21 [History Last Taken Unknown] albuterol sulfate 90 mcg/actuation aerosol inhaler (Ventolin HFA) 2 puff inhalation Q4H PRN shortness of breath or wheezing #8.5 grams 02/03/23 [Rx Last Taken Unknown] lubiprostone 24 mcg capsule (Amitiza) 24 mcg PO DAILY ? #30 caps 12/14/23 [Rx Last Taken Unknown] acetaminophen 325 mg tablet 650 mg (2 x 325 mg) PO Q4H PRN PRN Fever, pain 1- 06/16 #0 tabs 04/19/24 [Rx Last Taken Unknown] apixaban 5 mg tablet (Eliquis) 2.5 mg (1/2 x 5 mg) PO BID blood thin 30 days #30 tabs 12/25/23 [Rx Last Taken Unknown] magnesium hydroxide 400 mg/5 mL oral suspension 30 ml PO DAILY PRN PRN Constipation #0 mL 12/25/23 [Rx Last Taken Unknown] oxycodone 5 mg tablet 5 mg PO Q4H PRN PRN PAIN 4-6 #0 tabs 12/25/23 [Rx Last Taken Unknown] sennosides 8.6 mg-docusate sodium 50 mg tablet (Stool Softener-Stimulant Laxative) 2 tab PO BID stool softener #0 tabs 12/25/23 [Rx Last Taken Unknown] Allergy/AdvReac Type Severity Reaction Status Date / Time amoxicillin Allergy Rash Verified 05/13/23 14:53 difluprednate [From Durezol] Allergy Other Verified 05/13/23 14:53 methylprednisolone Allergy Rash Verified 05/13/23 14:53 Penicillins Allergy Unknown Verified 05/13/23 14:53 prednisolone Allergy Swelling Verified 05/13/23 14:53 sucralfate [From Carafate] Allergy restless Verified 05/13/23 14:53 legs diphenhydramine AdvReac Intermediate Other Verified 05/13/23 14:53 [From Benadryl] amitriptyline AdvReac sleepiness Verified 05/13/23 14:53 citalopram AdvReac Diarrhea Verified 05/13/23 14:53 codeine AdvReac Nausea Verified 05/13/23 14:53 dexamethasone AdvReac Other Verified 05/13/23 14:53 duloxetine HCl AdvReac Diarrhea Verified 05/13/23 14:53 [From Cymbalta] Iodinated Contrast Media AdvReac unknown Verified 05/13/23 14:53 [Iodinated Contrast- Oral and IV Dye] lamotrigine [From Lamictal] AdvReac DRUGGED Verified 05/13/23 14:53 FEELING metoclopramide HCl AdvReac INVOLUNTARY Verified 05/13/23 14:53 [From Reglan] BODY MOVEMENTS mirabegron [From Myrbetriq] AdvReac Other Verified 05/13/23 14:53 promethazine HCl AdvReac INVOLUNTARY Verified 05/13/23 14:53 [From Phenergan] BODY MOVEMENTS sertraline HCl [From Zoloft] AdvReac Diarrhea Verified 05/13/23 14:53 sulfamethoxazole AdvReac FELT Verified 05/13/23 14:53 [From Bactrim] WEIRD, HEAD NUMB, FELT DRUGGED, SHAKEY, NAUSEATED trimethoprim [From Bactrim] AdvReac FELT Verified 05/13/23 14:53 WEIRD, HEAD NUMB, FELT DRUGGED, SHAKEY, NAUSEATED Family History Mother Diabetes Breast cancer Arthritis Asthma auto immune disease Father Heart disease Hypertension Hyperlipidemia CVA (cerebral vascular accident) Arthritis Surgical History H/O adenoidectomy H/O colonoscopy H/O cystoscopy H/O dilation and curettage H/O endoscopy H/O vaginal hysterectomy History of cholecystectomy History of tonsillectomy Hx of appendectomy Hx of bilateral cataract extraction Hx of eye surgery Social History household members: none housing: house Smoking Status: Never smoker alcohol intake: never substance use type: does not use ROS Constitutional Constitutional: Denies chills, fever(s) or weight gain ENT HEENT: Denies headache(s), nasal congestion or nasal discharge Cardiovascular Cardiovascular: Denies chest pain or palpitations Respiratory/Chest Respiratory/Chest: Denies cough, excessive phlegm production or shortness of breath with exertion Gastrointestinal Gastrointestinal: Denies abdominal pain, nausea or vomiting Genitourinary Genitourinary: Denies dysuria Musculoskeletal Musculoskeletal: Denies joint pain or joint swelling Integumentary Integumentary: Denies rash or wounds Neurologic Neurologic: Denies focal weakness, numbness or tingling Psychiatric Psychiatric: Denies anxiety, auditory hallucinations, depression, homicidal ideation or suicidal ideation Vital Signs Vital Signs Vital Signs: 12/25/23 14:50 Temperature 97.6 F L Temperature Source Temporal Pulse Rate 90 Respiratory Rate 18 Blood Pressure 112/43 L Blood Pressure Mean 66 Blood Pressure Source Monitor Blood Pressure Position Supine Blood Pressure Location Left Arm Pulse Ox 94 Oxygen Delivery Method Room Air Weight Weight: 51.029 kg Body Mass Index (BMI) 23.5 Physical Exam Const alert General Appearance: cooperative HEENT normocephalic Eyes PERRL and EOMs intact bilaterally Neck supple, no JVD and no carotid bruits Resp normal respiratory effort, normal air movement and clear to auscultation bilaterally Cardio regular rate and regular rhythm GI normal to inspection, nondistended, normoactive bowel sounds, non-tender and non-distended Extremity normal capillary refill General Extremity: Negative for edema Skin no rashes or lesions noted General Skin Exam: no breakdown Psych affect normal Appearance: appropriate Assessment & Plan Assessment/Plan (1) Debility: (2) Closed fracture of left hip: (3) Atrial fibrillation: (4) TIA (transient ischemic attack): (5) Hyperlipidemia: (6) Behcet's disease: (7) Insomnia: (8) RLS (restless legs syndrome): (9) Allergic rhinitis: (10) Depression: (11) GERD (gastroesophageal reflux disease): (12) Fecal impaction of colon: (13) Fibromyalgia: PLAN: Plan 88 year old female with below past medical history hospitalized for left hip fracture, underwent left hip hemiarthroplasty 12/23/[address] Pineda, admitted to TCU with debility, here for rehabilitation, strengthening, prior to discharge home alone. * Debility - PT/OT. * Pain - Tylenol 1000mg q8, Oxycodone 5mg q4 prn pain (4-10). * Bowel - senna/colace 2 tablets bid, Magnesium citrate 300ml daily prn. * Adult immunization - Administer pneumonia vaccine, covid vaccine, flu vaccine as appropriate. * DVT prophylaxis - Eliquis 2.5mg bid thru 01/27/2024. * TIA - Aspirin 81mg starting 01/28/2024. * Hyperlipidemia - Atorvastatin 5mg every other day. * Calcium deficiency - Calcium D 2 tablets bid. * Allergic rhinitis - Flonase nasal spray 1 spray daily. * Behcet's disease - Plaquenil 200mg daily. * Hypomagnesemia - Magnesium chloride 64mg qhs. * Insomnia - Melatonin 3mg qhs. * Nutrition - MVI 1 tablet daily. * Dry eyes - Artificial tears 1-2gtt ou q2h prn. * Dry mouth - Pilocarpine 2.5mg tid. * Restless Leg syndrome - Mirapex 0.125mg bid. * Fibromyalgia - Lyrica 25mg tid. * Depression - Venlafaxine XR 75mg daily, stable chronic [facility] use, GDR not recommended. * Leg cramps - Vitamin B complex 1 capsule daily. * Zinc deficiency - Zinc 50mg daily.
[2023-12-25] MEDS: oxyCODONE 5 MG Tablet PO (15:59)
[2023-12-25] MEDS: Pramipexole Di-HCl 0.125 MG Tablet PO ×2 (17:50→21:38)
--- NOTE | 2023-12-25 18:42 | NURSING ---
Mirapex not given at scheduled 6 dose d/t having previously scheduled dose at 1750.
[2023-12-25] MEDS: APIXABAN 2.5 MG TABLET (WCH) PO (21:38)
[2023-12-25] MEDS: MELATONIN 3 MG TABLET PO (21:39)
[2023-12-25] MEDS: Magnesium Chloride 64 MG Delay Rel.Tablet PO (21:39)
[2023-12-25] MEDS: Calcium Carb/Vitamin D 1 TABLET Tablet 2 TABLET PO (21:40)
[2023-12-25] MEDS: Pilocarpine HCl 5 MG Tablet 2.5 MG PO (21:40)
[2023-12-25] MEDS: Acetaminophen 500 MG Tablet 1000 MG PO (21:41)
[2023-12-25] MEDS: Senna/Docusate Sodium 1 Tablet 2 TABLET PO (21:41)
--- NOTE | 2023-12-25 21:45 | NURSING ---
Patient requesting Lyrica and Mirapex TID times to be 0000,1800,2100, patient states plans to request PRN Oxy 10mg at those times as well. Patient states was recieving Mirapex and Lyrica at those time on acute side. Oxy currently ordered PRN Q4H. Dr. Gaona notified of patient request and current med doses. Per Dr. Gaona ok to administer Lyrica and Mirapex at times listed above per patient request.
[2023-12-25] MEDS: Pregabalin 25 MG Capsule PO (22:14)
[2023-12-25] MEDS: oxyCODONE 5 MG Tablet 10 MG PO (22:14)
[2023-12-26] MEDS: 0.9% Saline Lock 10 ML Syringe IV ×2 (00:47→13:08)
[2023-12-26] MEDS: Pramipexole Di-HCl 0.125 MG Tablet PO ×3 (00:47→20:28)
[2023-12-26] MEDS: Pregabalin 25 MG Capsule PO ×3 (00:47→20:30)
[2023-12-26 05:26] LABS: Absolute Neutrophil Count 10.1 X10^3/uL (2.0-7.7); Basophil# 0.01 X10^3/uL; Basophil% 0.1 % (0-1); Eosinophil# 0.18 X10^3/uL; Eosinophils% 1.4 % (0-5); Hematocrit 30.3 % (37-47); Hemoglobin 9.8 g/dL (12.0-15.0); Lymphocyte % 10.1 % (19-41); Mean Corp Hgb Conc 32.3 g/dL (32-36); Mean Corpuscular Hgb 27.2 pg (27.0-32.0); Mean Corpuscular Volume 84.2 fL (81-99); Mean Platelet Vol. 9.9 fl (6.2-12.0); Monocyte# 1.22 X10^3/uL; Monocyte% 9.5 % (0-10); NRBC Flagged by Analyzer 0 % (0-5); Neutrophil # 10.12 X10^3/uL (2.7-7.7); Neutrophil % 78.4 % (47-70); Platelet Count 252 K/mm3 (150-450); RBC Distribution Width CV 13.8 % (11.6-14.6); RBC Distribution Width SD 43.1 fl (35.1-43.9); White Blood Count 12.9 K/mm3 (4.4-11.0)
[2023-12-26 05:48] LABS: Anion Gap 7 (5-15); BUN 10 mg/dL (7-18); BUN/Creat Ratio 23.4 RATIO (10-20); Calcium,Total 8.6 mg/dL (8.5-10.1); Chloride 101 mmol/L (98-107); Creatinine, Serum 0.43 mg/dL (0.55-1.02); EST Glomerular Filtration Rate 148 mL/min (>60); Est Glom Filt Rate - Afr Amer 180 mL/min (>60); Estimated Creatinine Clearance 34.91 ml/min; Glucose 99 mg/dL (74-106); Potassium 3.6 mmol/L (3.5-5.1); Sodium Level 133 mmol/L (136-145)
[2023-12-26] MEDS: Acetaminophen 500 MG Tablet 1000 MG PO ×2 (06:06→20:26)
[2023-12-26] MEDS: Pilocarpine HCl 5 MG Tablet 2.5 MG PO ×3 (06:07→20:28)
[2023-12-26] MEDS: oxyCODONE 5 MG Tablet 10 MG PO ×3 (08:56→18:06)
[2023-12-26] MEDS: Multivitamins,Therapeutic Tablet 1 TABLET PO (09:54)
[2023-12-26] MEDS: Hydroxychloroquine 200 MG Tablet PO (09:54)
[2023-12-26] MEDS: Venlafaxine XR 75 MG Capsule PO (09:55)
[2023-12-26] MEDS: Vitamin B Comp W-C Capsule 1 CAP PO (09:55)
[2023-12-26] MEDS: APIXABAN 2.5 MG TABLET (WCH) PO ×2 (09:56→20:25)
[2023-12-26] MEDS: Calcium Carb/Vitamin D 1 TABLET Tablet 2 TABLET PO ×2 (09:58→20:27)
[2023-12-26] MEDS: Atorvastatin Calcium 10 MG Tablet 5 MG PO (09:58)
[2023-12-26] MEDS: Senna/Docusate Sodium 1 Tablet 2 TABLET PO ×2 (09:58→20:26)
[2023-12-26] MEDS: Zinc Sulfate 50 mg zinc (220 mg) ORAL capsule PO (09:59)
[2023-12-26] MEDS: Tuberculin,Purif.prot.deriv. 50 TU/ML Vial 0.1 ML ID (10:03)
[2023-12-26] MEDS: Iron Polysaccharide Complex 150 MG CAPSULE PO (12:59)
[2023-12-26] MEDS: Menthol/Lanolin/Calamine/Znox 113 GM Tube 1 APPLIC TOPICAL ×2 (13:05→20:30)
--- NOTE | 2023-12-26 13:23 | NURSING ---
Dr. Gaona updated on pt's request for Zofran. Pt states she takes at home as needed for frequent nausea. Pt also requesting Eye Vitamin and something for her frequent mouth sores. N.O. received for Zofran 8mg q8hr as needed for Nausea, Healthy eyes 1 tab daily, and BMX PRN as needed for mouth sores. Order Read Back.
[2023-12-26 15:14] VITALS: BP 114/54; PULSE 81; RESP 20; TEMP 36.5; O2SAT 94
[2023-12-26] MEDS: MELATONIN 3 MG TABLET PO (20:25)
[2023-12-26] MEDS: Magnesium Chloride 64 MG Delay Rel.Tablet PO (20:26)
[2023-12-27] MEDS: oxyCODONE 5 MG Tablet 10 MG PO ×5 (04:09→19:27)
[2023-12-27] MEDS: Acetaminophen 500 MG Tablet 1000 MG PO ×3 (05:59→21:35)
[2023-12-27] MEDS: Pilocarpine HCl 5 MG Tablet 2.5 MG PO ×3 (06:00→21:36)
[2023-12-27 07:21] LABS: Hematocrit 33.5 % (37-47); Hemoglobin 10.8 g/dL (12.0-15.0)
[2023-12-27] MEDS: Multivitamins,Therapeutic Tablet 1 TABLET PO (09:53)
[2023-12-27] MEDS: Multivitamin (Healthy Eyes) Capsule 1 CAP PO (09:54)
[2023-12-27] MEDS: Hydroxychloroquine 200 MG Tablet PO (09:54)
[2023-12-27] MEDS: Menthol/Lanolin/Calamine/Znox 113 GM Tube 1 APPLIC TOPICAL ×2 (09:55→21:43)
[2023-12-27] MEDS: Venlafaxine XR 75 MG Capsule PO (09:55)
[2023-12-27] MEDS: Vitamin B Comp W-C Capsule 1 CAP PO (09:55)
[2023-12-27] MEDS: Iron Polysaccharide Complex 150 MG CAPSULE PO (09:56)
[2023-12-27] MEDS: APIXABAN 2.5 MG TABLET (WCH) PO ×2 (09:56→21:34)
[2023-12-27] MEDS: Calcium Carb/Vitamin D 1 TABLET Tablet 2 TABLET PO ×2 (09:56→21:35)
[2023-12-27] MEDS: Zinc Sulfate 50 mg zinc (220 mg) ORAL capsule PO (09:56)
[2023-12-27] MEDS: Senna/Docusate Sodium 1 Tablet 2 TABLET PO ×2 (09:57→21:36)
[2023-12-27 14:03] VITALS: BP 116/61; PULSE 89; RESP 16; TEMP 36.9; O2SAT 94
[2023-12-27] MEDS: Glycerin/Hypromellose/PEG400 15 ml Bottle EACH EYE (15:09)
[2023-12-27] MEDS: Pramipexole Di-HCl 0.125 MG Tablet PO ×3 (17:58→21:34)
[2023-12-27] MEDS: Pregabalin 25 MG Capsule PO ×3 (18:02→21:34)
--- NOTE | 2023-12-27 21:16 | NURSING ---
Notified Dr. Gaona of patient stating it is a little difficult for her to have bowel movements, takes Amitiza at home. Not carried. N.O. for Miralax 17gm po now, then daily. Patient updated.
[2023-12-27] MEDS: MELATONIN 3 MG TABLET PO (21:34)
[2023-12-27] MEDS: Magnesium Chloride 64 MG Delay Rel.Tablet PO (21:41)
[2023-12-27 21:45] VITALS: PULSE 81; RESP 16; O2SAT 93
[2023-12-28] MEDS: Pramipexole Di-HCl 0.125 MG Tablet PO ×3 (00:11→21:22)
[2023-12-28] MEDS: oxyCODONE 5 MG Tablet 10 MG PO ×5 (00:11→21:21)
[2023-12-28] MEDS: Pregabalin 25 MG Capsule PO ×3 (00:11→21:21)
[2023-12-28] MEDS: Acetaminophen 500 MG Tablet 1000 MG PO ×3 (05:41→21:25)
[2023-12-28] MEDS: Pilocarpine HCl 5 MG Tablet 2.5 MG PO ×3 (05:42→21:24)
[2023-12-28 06:04] VITALS: PULSE 79; RESP 16; O2SAT 94
[2023-12-28] MEDS: Iron Polysaccharide Complex 150 MG CAPSULE PO (08:34)
[2023-12-28] MEDS: Vitamin B Comp W-C Capsule 1 CAP PO (08:34)
[2023-12-28] MEDS: Hydroxychloroquine 200 MG Tablet PO (08:34)
[2023-12-28] MEDS: APIXABAN 2.5 MG TABLET (WCH) PO ×2 (08:34→21:25)
[2023-12-28] MEDS: Venlafaxine XR 75 MG Capsule PO (08:34)
[2023-12-28] MEDS: Fluticasone 0.05% 1 SPRAY NASAL.SRY 2 SPRAY NASAL (08:35)
[2023-12-28] MEDS: Atorvastatin Calcium 10 MG Tablet 5 MG PO (08:35)
[2023-12-28] MEDS: Calcium Carb/Vitamin D 1 TABLET Tablet 2 TABLET PO ×2 (08:36→21:25)
[2023-12-28] MEDS: Senna/Docusate Sodium 1 Tablet 2 TABLET PO ×2 (08:36→21:25)
[2023-12-28] MEDS: Zinc Sulfate 50 mg zinc (220 mg) ORAL capsule PO (08:37)
[2023-12-28] MEDS: Multivitamins,Therapeutic Tablet 1 TABLET PO (08:37)
[2023-12-28] MEDS: Menthol/Lanolin/Calamine/Znox 113 GM Tube 1 APPLIC TOPICAL ×2 (08:40→21:23)
[2023-12-28] MEDS: Multivitamin (Healthy Eyes) Capsule 1 CAP PO (09:47)
--- NOTE | 2023-12-28 11:43 | PCM.PN.DRR ---
Documented by User: Mia Mark 12/28/23 12:16 TCU RX Drug Regimen Review Subjective/Objective Subjective/Objective: Subjective: TCU Admission. 88 YOF presented to the ER with fall, left hip pain. Hospitalized for left hip fracture, underwent left hip hemiarthroplasty 12/23/[address] Pineda. Admitted to TCU with debility for strengthening and rehabilitation. Objective: Allergies amoxicillin Allergy (Verified 05/13/23 14:53) Rash difluprednate [From Durezol] Allergy (Verified 05/13/23 14:53) Other methylprednisolone Allergy (Verified 05/13/23 14:53) Rash Penicillins Allergy (Verified 05/13/23 14:53) Unknown prednisolone Allergy (Verified 05/13/23 14:53) Swelling sucralfate [From Carafate] Allergy (Verified 05/13/23 14:53) restless legs diphenhydramine [From Benadryl] Adverse Reaction (Intermediate, Verified 05/13/23 14:53) Other Severe restless legs amitriptyline Adverse Reaction (Verified 05/13/23 14:53) sleepiness citalopram Adverse Reaction (Verified 05/13/23 14:53) Diarrhea codeine Adverse Reaction (Verified 05/13/23 14:53) Nausea dexamethasone Adverse Reaction (Verified 05/13/23 14:53) Other SORE MOUTH duloxetine HCl [From Cymbalta] Adverse Reaction (Verified 05/13/23 14:53) Diarrhea Iodinated Contrast Media [Iodinated Contrast- Oral and IV Dye] Adverse Reaction (Verified 05/13/23 14:53) unknown lamotrigine [From Lamictal] Adverse Reaction (Verified 05/13/23 14:53) DRUGGED FEELING metoclopramide HCl [From Reglan] Adverse Reaction (Verified 05/13/23 14:53) INVOLUNTARY BODY MOVEMENTS mirabegron [From Myrbetriq] Adverse Reaction (Verified 05/13/23 14:53) Other BLADDER INFLAMMATION AND SORE MOUTH promethazine HCl [From Phenergan] Adverse Reaction (Verified 05/13/23 14:53) INVOLUNTARY BODY MOVEMENTS sertraline HCl [From Zoloft] Adverse Reaction (Verified 05/13/23 14:53) Diarrhea sulfamethoxazole [From Bactrim] Adverse Reaction (Verified 05/13/23 14:53) FELT WEIRD, HEAD NUMB, FELT DRUGGED, SHAKEY, NAUSEATED trimethoprim [From Bactrim] Adverse Reaction (Verified 05/13/23 14:53) FELT WEIRD, HEAD NUMB, FELT DRUGGED, SHAKEY, NAUSEATED Current Medications Generic Name Dose Route Start Last Admin Trade Name Freq PRN Reason Stop Dose Admin Acetaminophen 1,000 mg 12/25/23 22:00 12/28/23 05:41 Acetaminophen 500 Mg Tablet PO 1,000 mg Q8 JAUQI Administration Albuterol Sulfate 2 puff 12/25/23 15:06 Albuterol Ih (6.7 Gm) 1 Puff Inhaler INHALATION Q4H PRN shortness of breath or wheezing Apixaban 2.5 mg 12/25/23 22:00 12/28/23 08:34 Apixaban 2.5 Mg Tablet ([facility]) PO 01/27/24 23:59 2.5 mg BID [facility] Administration Aspirin 81 mg 01/28/24 10:00 Aspirin E.C. 81 Mg Tablet PO DINNER [facility] Atorvastatin Calcium 5 mg 12/26/23 10:00 12/28/23 08:35 Atorvastatin Calcium 10 Mg Tablet PO 5 mg QODAY [facility] Administration Calamine/Phenol 1 applic 12/26/23 10:00 12/28/23 08:40 Menthol/Lanolin/Calamine/Znox 113 Gm Tube TOPICAL 1 applic BID [facility] Administration Protocol Calcium/Vitamin D 2 tablet 12/25/23 22:00 12/28/23 08:36 Calcium Carb/Vitamin D 1 Tablet Tablet PO 2 tablet BID [facility] Administration Fluticasone Propionate 2 spray 12/26/23 10:00 12/28/23 08:35 Fluticasone 0.05% 1 [place] Nasal.Sry NASAL 2 spray DAILY [facility] Administration Glycerin/Hypromellose/Polyethylene 1 - 2 drp 12/25/23 22:00 12/27/23 15:09 Glycerin/Hypromellose/Aib640 15 Ml Bottle EACH EYE 1 applic Q2H PRN Administration DRY EYES Hydroxychloroquine Sulfate 200 mg 12/26/23 08:00 12/28/23 08:34 Hydroxychloroquine 200 Mg Tablet PO 200 mg DAILYCM JAQUI Administration Lidocaine/Diphenhydr/Alum/Mg/Simeth 10 ml 12/26/23 12:57 Bmx Liquid 180 Ml PO Q3H PRN PRN MOUTH IRRITATION Magnesium Chloride 64 mg 12/25/23 22:00 12/27/23 21:41 Magnesium Chloride 64 Mg Delay Rel.Tablet PO 64 mg QHS [facility] Administration Magnesium Citrate 300 ml 12/25/23 15:30 Magnesium Citrate 300 Ml PO DAILY PRN Constipation Melatonin 3 mg 12/25/23 22:00 12/27/23 21:34 Melatonin 3 Mg Tablet PO 3 mg QHS [facility] Administration Multivitamins 1 tablet 12/26/23 08:00 12/28/23 08:37 Multivitamins,Therapeutic Tablet PO 1 tablet DAILYCM [facility] Administration Multivitamins 1 cap 12/26/23 10:00 12/28/23 08:34 Vitamin B Comp W-C Capsule PO 1 cap DAILY [facility] Administration Multivitamins/Minerals 1 cap 12/27/23 08:00 12/28/23 09:47 Multivitamin (Healthy Eyes) [facility] Ondansetron HCl 8 mg 12/26/23 12:57 Ondansetron 8 Mg Tablet PO Q8H PRN PRN NAUSEA/VOMITING Oxycodone HCl 10 mg 12/25/23 17:51 12/28/23 09:47 Oxycodone 5 Mg Tablet PO 10 mg Q4H PRN PRN Administration Pain Score 4-10 or Pre PT/OT Pilocarpine HCl 2.5 mg 12/25/23 22:00 12/28/23 05:42 Pilocarpine Hcl 5 Mg Tablet PO 2.5 mg TID [facility] Administration Polyethylene Glycol 17 gm 12/28/23 10:00 12/28/23 08:36 Polyethylene Glycol 3350 17 Gm Packet PO Not Given DAILY [facility] Polysaccharide Iron Complex 150 mg 12/26/23 11:00 12/28/23 08:34 Iron Polysaccharide Complex 150 Mg Capsule PO 150 mg DAILY [facility] Administration Pramipexole Dihydrochloride 0.125 mg 12/25/23 18:00 12/28/23 00:11 Pramipexole Di-Hcl 0.125 Mg Tablet PO 0.125 mg 1800,2100,0000 [facility] Administration Pregabalin 25 mg 12/25/23 21:45 12/28/23 00:11 Pregabalin 25 Mg Capsule PO 25 mg 0000,1800,2100 [facility] Administration Senna/Docusate Sodium 2 tablet 12/25/23 22:00 12/28/23 08:36 Senna/Docusate Sodium 1 Tablet PO 2 tablet BID JAQUI Administration Sodium Chloride 10 - 40 ml 12/25/23 23:14 12/26/23 13:08 0.9% Saline Lock 10 Ml Syringe IV 10 ml UD PRN Administration SALINE FLUSH Tuberculin PPD 0.1 ml 01/02/24 10:00 Tuberculin,Purif.Prot.Deriv. 50 Tu/Ml Vial ID 01/02/24 10:01 X1 ONE Venlafaxine HCl 75 mg 12/26/23 10:00 12/28/23 08:34 Venlafaxine Xr 75 Mg Capsule PO 75 mg DAILY JAQUI Administration Zinc Sulfate 50 mg 12/26/23 10:00 12/28/23 08:37 Zinc Sulfate 50 Mg Zinc (220 Mg) Oral Capsule PO 50 mg DAILY JAQUI Administration Problem List (Updated 12/25/23 @ 15:[address] Paulino Gaona MD) Fibromyalgia (Acute) Fecal impaction of colon (Acute) GERD (gastroesophageal reflux disease) (Acute) Depression (Acute) Allergic rhinitis (Acute) Insomnia (Acute) Behcet's disease (Acute) Hyperlipidemia (Acute) TIA (transient ischemic attack) (Acute) Atrial fibrillation (Acute) Debility (Acute) Closed fracture of left hip (Acute) RLS (restless legs syndrome) (Chronic) Vital Signs Temp Pulse Resp BP Pulse Ox O2 Del Method 98.5 F 79 16 116/61 94 Room Air 12/27/23 14:03 12/28/23 06:04 12/28/23 06:04 12/27/23 14:03 12/28/23 06:04 12/28/23 06:04 Oxygen Delivery Method Room Air Weight: 51.029 kg Body Mass Index (BMI) 23.5 Sodium 133 mmol/L (136-145) L 12/26/23 05:00 Potassium 3.6 mmol/L (3.5-5.1) 12/26/23 05:00 Chloride 101 mmol/L (98-107) 12/26/23 05:00 Carbon Dioxide 25.0 mmol/L (21.0-32.0) 12/26/23 05:00 Anion Gap 7 (5-15) 12/26/23 05:00 BUN 10 mg/dL (7-18) 12/26/23 05:00 Creatinine 0.43 mg/dL (0.55-1.02) L 12/26/23 05:00 Est GFR (MDRD) Af Amer 180 mL/min (>60) 12/26/23 05:00 Est GFR (MDRD) Non-Af 148 mL/min (>60) 12/26/23 05:00 BUN/Creatinine Ratio 23.4 RATIO (10-20) H 12/26/23 05:00 Glucose 99 mg/dL (74-106) 12/26/23 05:00 Assessment/Plan: 1. Pain: acetaminophen 1000mg PO Q8 and oxycodone 10mg PO Q4H PRN pain 4-10. Resident has had 13 doses of oxycodone for pain scores from 4-9 in various locations. Please continue to monitor for increased pain, PRN usage, constipation and respiratory depression. 2. Bowel: senna/docusate 2T PO BID, Miralax 17gm PO daily (added this morning, resident refused dose) and magnesium citrate 300mL PO daily PRN constipation. No documented bowel movements at this time. Please continue to monitor for constipation, PRN usage and diarrhea. No PRN doses have been given. 3. DVT prophylaxis: apixaban 2.5mg PO BID thru 01/27/24. Please continue to monitor for S/S of bleeding/DVT and hemoglobin (last 10.8g/dL). 4. TIA: aspirin 81mg PO daily starting 01/28/24 (following apixaban). Please continue to monitor. 5. Hyperlipidemia: atorvastatin 5mg PO every other day. Please consider ordering a lipid panel as the last is from 2020. Thanks. Please continue to monitor for muscle pain and LFTs (last 12/23/23). 6. Restless leg syndrome: pramipexole 0.125mg PO BID. Please continue to monitor for S/S of restless legs, drowsiness and dizziness. 7. Behcet's disease: hydroxychloroquine 200mg PO daily. Please continue to monitor for vision changes, CBC, rash, GI side effects and HR. 8. Insomnia: melatonin 3mg PO QHS. Please continue to monitor for excessive drowsiness. 9. Allergic rhinitis: fluticasone 0.05% nasal spray 1 spray nasal daily. Please continue to monitor for S/S of allergies, nosebleeds and dry nares. Please rinse mouth with water and spit out following administration. 10. Dry mouth/dry mouth: pilocarpine 2.5mg PO TID and artificial tears 1-2gtt OU Q2H PRN dry eyes. Resident has had 1 dose of artificial tears. Please continue to monitor for dry mouth/eyes, PRN usage, vision changes and GI side effects. 11. Mouth irritation: BMX 10mL PO Q3H PRN mouth irritation. Resident has not had any doses so far. Please continue to monitor for mouth irritation. 12. Nausea: ondansetron 8mg PO Q8H PRN nausea/vomiting. Resident has not used any doses so far. Please continue to monitor for nausea, vomiting and PRN usage. 13. Iron deficiency (based on hemoglobin of 10.8g/dL): Ferrex 150mg PO DAILYCM. Please continue to monitor hemoglobin, dark stools, constipation. Please consider iron studies as I do not see any in the chart. Thanks. 14. Hypomagnesemia/calcium and zinc deficiencies/nutrition/leg cramps: calcium/vitamin D 2T PO BID, magnesium chloride 64mg PO QHS, vitamin B complex 1C PO daily, zinc sulfate 50mg PO daily, multivitamin 1T PO DAILYCM and healthy eyes 1C PO DAILYCM. Please consider ordering a vitamin D level as there is no level in the chart. Thanks. Please continue to monitor calcium (last 8.6mg/dL 12/26/23) and magnesium (last 2 mg/dL 12/24/23). 15. Shortness of breath: albuterol MDI 2puff Q4H PRN shortness of breath. Resident has not used ant doses so far. Please continue to monitor for PRN usage and SOB. Assessment/Plan for indications treated with psychotropic medications: 1. Depression: venlafaxine XR 75mg PO daily. Please see physician note regarding GDR. Please continue to monitor for suicidal ideation (black box warning), sodium (last 133mmol/L) and falls/fractures (BEERs medication, resident admitted for fall/fracture). 2. Fibromyalgia: pregabalin 25mg PO TID. GDR not appropriate as this is being used for fibromyalgia. Please continue to monitor for pain, falls/fractures (BEERs medication, resident admitted for fall/fracture) and renal function (CrCL 35mL/min, dose appropriate at this time). Medical chart and medication regimen reviewed. The following medication irregularities or issues were identified: 1. Atorvastatin 5mg PO every other day. Please consider ordering a lipid panel as the last is from 2020. Thanks. 2. Ferrex 150mg PO DAILYCM. Please consider iron studies as I do not see any in the chart. Thanks. 3. Calcium/vitamin D 2T PO BID. Please consider ordering a vitamin D level as there is no level in the chart. Thanks. Date Date of Note:: 12/28/23 Documented by User: Dr. Paulino Gaona MD 12/28/23 13:10 TCU RX Drug Regimen Review Provider Comments Provider responsibility Provider Comments to Recommendations by Pharmacy: Agree
--- NOTE | 2023-12-28 12:20 | NURSING ---
Meat Grader Note; Activity Asset: Nora Edmond is independent in her choice of daily activities. Her friends, family and gas dispenser will visit her. She welcomes visits from the therapy dog but stated will not need our dressmaker or tailor for hers will visit often. She has her tablet, smartphone and own books to read. Staff will remind her of weekly activities and respect her right to say no.
--- NOTE | 2023-12-28 12:23 | NURSING ---
Offered Covid vaccine, VIS provided. Patient refuses at this time.
[2023-12-28] MEDS: Glycerin/Hypromellose/PEG400 15 ml Bottle EACH EYE (13:03)
[2023-12-28 15:40] VITALS: BP 118/60; PULSE 87; RESP 16; TEMP 36.7; O2SAT 92
--- NOTE | 2023-12-28 19:45 | CASEMGMT ---
ADVANCE DIRECTIVE VALIDATION Patient has scanned POAHC and Living Will on file. Daughter Ida Spencer is listed as primary, which patient confirms is still accurate. Reports son, Jeremy, who is listed second in a MVA in July 2023. Patient reports did update directives to have grandson Elliott listed as second POAHC, but those directives remain at home and no family yet has copy of this. On both sets, the daughter is primary. Informed patient that if someone can bring in new documents will have new documents scanned into record to supersede what is on file. -JESS Almeida
--- NOTE | 2023-12-28 19:45 | CASEMGMT ---
Social Work - TCU Admission Assessment Met with pt to complete initial social work assessment. Introduced self and role. Verified contacts. Only the daughter is listed right now, but patient agreed to discuss with grandson about having the grandson listed as the second emergency contact. Patient hesitant to add grandson Elliott without Elliott's permission. Discussed code status, which patient reports is DNRCC-A no intubation. Noted patient with purple band on wrist already and correct order placed in EMR. Educated to Medicare SNF benefit of 100 day benefit period, with first 20 days paid for at 100% and then copay of 204 dollars a day from day 21-100, but that secondary insurance can be billed for copay though specific benefits of patient's secondary are not known to this food writer at time of assessment. Educated that SNF benefit does not guarantee usage of all 100 days, and that usage of benefit is based on need of care and progress in treatment. Educated that social work will remain involved for discharge planning. No questions voiced regarding benefit coverage. Patient did voice worry and concern about where patient is at in rehab process, reported to feel as if she should be farther along than currently is. Supportive listening offered and encouraged patient to focus on what patient has control over, take one day at a time, and keep trying. Educated there will be a care plan meeting with patient to discuss progress in treatment, needs, any concerns related to discharge planning. Much supportive listening offered to patient this date. Patient's voiced goal is to return home alone with skilled home health care and resumption of care coordination services (MOW's) through [facility]. Patient like an order for a rollator walker, if qualifies for such, at home going. SW to continue to follow for DC planning and support as indicated. -JESS Almeida
[2023-12-28] MEDS: MELATONIN 3 MG TABLET PO (21:25)
[2023-12-28] MEDS: Magnesium Chloride 64 MG Delay Rel.Tablet PO (21:26)
[2023-12-29] MEDS: Pregabalin 25 MG Capsule PO ×4 (00:03→21:57)
[2023-12-29] MEDS: Pramipexole Di-HCl 0.125 MG Tablet PO ×3 (00:03→21:48)
[2023-12-29] MEDS: oxyCODONE 5 MG Tablet 10 MG PO ×6 (01:33→21:57)
[2023-12-29] MEDS: Pilocarpine HCl 5 MG Tablet 2.5 MG PO ×3 (05:39→21:53)
[2023-12-29] MEDS: Acetaminophen 500 MG Tablet 1000 MG PO ×3 (05:40→21:49)
[2023-12-29 06:19] LABS: Cholesterol 104 mg/dL (200); High Density Lipoprotein 34 mg/dL; Iron 19 ug/dL (50-170); Iron Binding Capacity,Total 133 ug/dL (250-450); PERCENT IRON SATURATION 14.3 % (15.0-55.0); Triglycerides 93 mg/dL; Very Low Density Lipoprotein 19 mg/dL (5-40)
[2023-12-29 08:07] LABS: Vitamin D,25 Hydroxy 63.6 ng/mL
[2023-12-29] MEDS: Senna/Docusate Sodium 1 Tablet 2 TABLET PO ×2 (08:08→21:50)
[2023-12-29] MEDS: Calcium Carb/Vitamin D 1 TABLET Tablet 2 TABLET PO ×2 (08:08→21:52)
[2023-12-29] MEDS: Iron Polysaccharide Complex 150 MG CAPSULE PO (08:09)
[2023-12-29] MEDS: Zinc Sulfate 50 mg zinc (220 mg) ORAL capsule PO (08:09)
[2023-12-29] MEDS: APIXABAN 2.5 MG TABLET (WCH) PO ×2 (08:09→21:51)
[2023-12-29] MEDS: Hydroxychloroquine 200 MG Tablet PO (08:10)
[2023-12-29] MEDS: Venlafaxine XR 75 MG Capsule PO (08:10)
[2023-12-29] MEDS: Multivitamins,Therapeutic Tablet 1 TABLET PO (08:10)
[2023-12-29] MEDS: Multivitamin (Healthy Eyes) Capsule 1 CAP PO (08:10)
[2023-12-29] MEDS: Fluticasone 0.05% 1 SPRAY NASAL.SRY 2 SPRAY NASAL (08:10)
[2023-12-29] MEDS: Vitamin B Comp W-C Capsule 1 CAP PO (08:10)
[2023-12-29] MEDS: Menthol/Lanolin/Calamine/Znox 113 GM Tube 1 APPLIC TOPICAL ×2 (08:11→21:58)
--- NOTE | 2023-12-29 12:21 | NURSING ---
LEFT COMMUNICATION FOR DR SEQUEIRA TO REVIEW IRON STUDY LABS THIS AM.
[2023-12-29 14:53] VITALS: BP 107/57; PULSE 82; RESP 16; TEMP 35.5; O2SAT 91
[2023-12-29 16:55] VITALS: BMI 23.1
--- NOTE | 2023-12-29 17:13 | CASEMGMT ---
Social Work Spoke with patient's Care Coordination Data Scientist at [facility], , Aurea Guevara. Aurea reports patient has medical alert and 10-14 meals delivered every couple of weeks. Reports patient would qualify for HHC about 4-6 hours a week, but Aurea has found staffing shortages for aides. Aurea reports is willing to try to see about [facility], but will need to know closer to discharge how patient is doing. Aurea does voice concern about patient, due to living alone with limited support. Plan: SW to actively follow for discharge planning needs. Patient's identified goals is Home with skilled HHC and order for a rollator walker if possible. -JESS Almeida
[2023-12-29 17:56] VITALS: BP 126/61; TEMP 37.1
[2023-12-29] MEDS: MELATONIN 3 MG TABLET PO (21:49)
[2023-12-29] MEDS: Magnesium Chloride 64 MG Delay Rel.Tablet PO (21:52)
[2023-12-29 23:00] VITALS: PULSE 83; RESP 16; O2SAT 94
[2023-12-30] MEDS: Pregabalin 25 MG Capsule PO ×3 (00:05→21:17)
[2023-12-30] MEDS: Pramipexole Di-HCl 0.125 MG Tablet PO ×3 (00:05→21:17)
[2023-12-30 05:15] VITALS: PULSE 84; RESP 18; O2SAT 92
[2023-12-30] MEDS: Acetaminophen 500 MG Tablet 1000 MG PO ×3 (05:22→21:16)
[2023-12-30] MEDS: Pilocarpine HCl 5 MG Tablet 2.5 MG PO ×3 (05:22→21:17)
[2023-12-30] MEDS: oxyCODONE 5 MG Tablet 10 MG PO ×5 (05:30→22:45)
[2023-12-30 06:43] LABS: Hematocrit 32.7 % (37-47); Hemoglobin 10.3 g/dL (12.0-15.0)
--- NOTE | 2023-12-30 09:44 | CASEMGMT ---
Social Work IDT met with patient at bedside and daughterIda via phone to discuss care plan meeting. Discussed patient progress with therapy (PT,OT,ST), nursing, dietary, and activities. Patient expressed concerns for dietary needs and appetite changes. Dietary recommended medication for appetite support. Patient informed SW IDT that she has concerns regarding allergic reaction to certain medications. Patient is currently on minced diet. Patient would like to practice transfers to get into car. Patient will contact friend to schedule transfer training. Patient SW educated patient and daughter of Medicare benefits and coverage. Medicare covers for assisted stay 100% for first 20 days and co-pay thereafter. Patient has goals to return home with home health care services, if appropriate. Patient informed ARMEN that she would like to review home health care providers. SW will provide printed careport provider list. Therapy identified that the patient will require walker at discharge. SW to order DME as needed. Patient currently has support: [facility] involved in community care [phone]: [employer] RITCHIE Agustin
[2023-12-30] MEDS: Calcium Carb/Vitamin D 1 TABLET Tablet 2 TABLET PO ×2 (10:11→21:16)
[2023-12-30] MEDS: Zinc Sulfate 50 mg zinc (220 mg) ORAL capsule PO (10:11)
[2023-12-30] MEDS: APIXABAN 2.5 MG TABLET (WCH) PO ×2 (10:11→21:17)
[2023-12-30] MEDS: Hydroxychloroquine 200 MG Tablet PO (10:11)
[2023-12-30] MEDS: Vitamin B Comp W-C Capsule 1 CAP PO (10:11)
[2023-12-30] MEDS: Multivitamins,Therapeutic Tablet 1 TABLET PO (10:11)
[2023-12-30] MEDS: Multivitamin (Healthy Eyes) Capsule 1 CAP PO (10:11)
[2023-12-30] MEDS: Senna/Docusate Sodium 1 Tablet 2 TABLET PO ×2 (10:11→21:16)
[2023-12-30] MEDS: Iron Polysaccharide Complex 150 MG CAPSULE PO (10:11)
[2023-12-30] MEDS: Venlafaxine XR 75 MG Capsule PO (10:11)
[2023-12-30] MEDS: Fluticasone 0.05% 1 SPRAY NASAL.SRY 2 SPRAY NASAL (10:12)
[2023-12-30] MEDS: Menthol/Lanolin/Calamine/Znox 113 GM Tube 1 APPLIC TOPICAL ×2 (10:12→21:22)
[2023-12-30] MEDS: Atorvastatin Calcium 10 MG Tablet 5 MG PO (10:12)
[2023-12-30 10:19] VITALS: BP 130/54; PULSE 82; RESP 16; TEMP 36.7; O2SAT 93
[2023-12-30] MEDS: MELATONIN 3 MG TABLET PO (21:16)
[2023-12-30] MEDS: Magnesium Chloride 64 MG Delay Rel.Tablet PO (21:17)
[2023-12-30] MEDS: Glycerin/Hypromellose/PEG400 15 ml Bottle EACH EYE (21:19)
[2023-12-31] MEDS: Pramipexole Di-HCl 0.125 MG Tablet PO ×4 (00:21→23:57)
[2023-12-31] MEDS: Pregabalin 25 MG Capsule PO ×4 (00:21→23:57)
[2023-12-31] MEDS: Pilocarpine HCl 5 MG Tablet 2.5 MG PO ×3 (06:03→21:13)
[2023-12-31] MEDS: Acetaminophen 500 MG Tablet 1000 MG PO ×3 (06:03→21:23)
[2023-12-31] MEDS: oxyCODONE 5 MG Tablet 10 MG PO ×4 (06:05→21:09)
[2023-12-31] MEDS: BMX LIQUID 180 ML 10 ML PO ×3 (06:11→17:31)
--- NOTE | 2023-12-31 07:57 | NURSING ---
Patient reported to this nurse that when she had pulled her pillow out from under her head that the call light hit her on the right side of her face. Redness noted above right cheek, will continue to monitor.
[2023-12-31 08:52] VITALS: BP 96/53; PULSE 91; RESP 18; TEMP 36.7; O2SAT 95
[2023-12-31] MEDS: Senna/Docusate Sodium 1 Tablet 2 TABLET PO ×2 (08:54→21:14)
[2023-12-31] MEDS: Calcium Carb/Vitamin D 1 TABLET Tablet 2 TABLET PO ×2 (08:54→21:12)
[2023-12-31] MEDS: Multivitamin (Healthy Eyes) Capsule 1 CAP PO (08:55)
[2023-12-31] MEDS: APIXABAN 2.5 MG TABLET (WCH) PO ×2 (08:55→21:12)
[2023-12-31] MEDS: Hydroxychloroquine 200 MG Tablet PO (08:55)
[2023-12-31] MEDS: Iron Polysaccharide Complex 150 MG CAPSULE PO (08:55)
[2023-12-31] MEDS: Fluticasone 0.05% 1 SPRAY NASAL.SRY 2 SPRAY NASAL (08:55)
[2023-12-31] MEDS: Zinc Sulfate 50 mg zinc (220 mg) ORAL capsule PO (08:55)
[2023-12-31] MEDS: Venlafaxine XR 75 MG Capsule PO (08:55)
[2023-12-31] MEDS: Vitamin B Comp W-C Capsule 1 CAP PO (08:55)
[2023-12-31] MEDS: Multivitamins,Therapeutic Tablet 1 TABLET PO (08:55)
[2023-12-31] MEDS: Menthol/Lanolin/Calamine/Znox 113 GM Tube 1 APPLIC TOPICAL ×2 (08:55→21:15)
[2023-12-31] MEDS: MELATONIN 3 MG TABLET PO (21:12)
[2023-12-31] MEDS: Magnesium Chloride 64 MG Delay Rel.Tablet PO (21:12)
[2024-01-01] MEDS: oxyCODONE 5 MG Tablet 10 MG PO ×6 (02:08→23:56)
[2024-01-01] MEDS: Acetaminophen 500 MG Tablet 1000 MG PO ×3 (05:23→21:00)
[2024-01-01] MEDS: Pilocarpine HCl 5 MG Tablet 2.5 MG PO ×3 (05:24→20:59)
[2024-01-01] MEDS: Glycerin/Hypromellose/PEG400 15 ml Bottle EACH EYE ×3 (05:25→21:05)
[2024-01-01 05:51] LABS: Absolute Lymphocyte Count 1.63 X10^3/uL (0.83-4.51); Absolute Neutrophil Count 6.9 X10^3/uL (2.0-7.7); Basophil# 0.05 X10^3/uL; Basophil% 0.5 % (0-1); Eosinophil# 0.72 X10^3/uL; Eosinophils% 6.9 % (0-5); Hematocrit 32.9 % (37-47); Hemoglobin 10.4 g/dL (12.0-15.0); Lymphocyte # 1.63 X10^3/ul (0.83-4.51); Lymphocyte % 15.6 % (19-41); Mean Corp Hgb Conc 31.6 g/dL (32-36); Mean Corpuscular Hgb 27.1 pg (27.0-32.0); Mean Corpuscular Volume 85.7 fL (81-99); Mean Platelet Vol. 8.9 fl (6.2-12.0); Monocyte% 8.6 % (0-10); NRBC Flagged by Analyzer 0 % (0-5); Neutrophil # 6.94 X10^3/uL (2.7-7.7); Neutrophil % 66.7 % (47-70); Platelet Count 472 K/mm3 (150-450); RBC Distribution Width CV 14.2 % (11.6-14.6); RBC Distribution Width SD 44.1 fl (35.1-43.9); Red Blood Count 3.84 M/mm3 (4.2-5.4); White Blood Count 10.4 K/mm3 (4.4-11.0)
[2024-01-01 06:03] VITALS: RESP 16
[2024-01-01 06:29] LABS: Anion Gap 3 (5-15); BUN 12 mg/dL (7-18); BUN/Creat Ratio 22.5 RATIO (10-20); Calcium,Total 9.4 mg/dL (8.5-10.1); Chloride 104 mmol/L (98-107); Creatinine, Serum 0.53 mg/dL (0.55-1.02); EST Glomerular Filtration Rate 115 mL/min (>60); Est Glom Filt Rate - Afr Amer 139 mL/min (>60); Estimated Creatinine Clearance 34.91 ml/min; Glucose 109 mg/dL (74-106); Potassium 4.1 mmol/L (3.5-5.1); Sodium Level 138 mmol/L (136-145)
[2024-01-01] MEDS: Multivitamin (Healthy Eyes) Capsule 1 CAP PO (09:08)
[2024-01-01] MEDS: Hydroxychloroquine 200 MG Tablet PO (09:09)
[2024-01-01] MEDS: Multivitamins,Therapeutic Tablet 1 TABLET PO (09:09)
[2024-01-01] MEDS: APIXABAN 2.5 MG TABLET (WCH) PO ×2 (09:10→20:57)
[2024-01-01] MEDS: Iron Polysaccharide Complex 150 MG CAPSULE PO (09:10)
[2024-01-01] MEDS: Venlafaxine XR 75 MG Capsule PO (09:10)
[2024-01-01] MEDS: Vitamin B Comp W-C Capsule 1 CAP PO (09:10)
[2024-01-01] MEDS: Fluticasone 0.05% 1 SPRAY NASAL.SRY 2 SPRAY NASAL (09:10)
[2024-01-01] MEDS: Atorvastatin Calcium 10 MG Tablet 5 MG PO (09:11)
[2024-01-01] MEDS: Polyethylene Glycol 3350 17 GM PACKET PO (09:12)
[2024-01-01] MEDS: Calcium Carb/Vitamin D 1 TABLET Tablet 2 TABLET PO ×2 (09:12→20:58)
[2024-01-01] MEDS: Zinc Sulfate 50 mg zinc (220 mg) ORAL capsule PO (09:12)
[2024-01-01] MEDS: Senna/Docusate Sodium 1 Tablet 2 TABLET PO ×2 (09:12→21:00)
[2024-01-01] MEDS: Menthol/Lanolin/Calamine/Znox 113 GM Tube 1 APPLIC TOPICAL ×2 (09:17→21:01)
--- NOTE | 2024-01-01 09:30 | NURSING ---
Color Tester Note; MDS for 01/01/2024 Complete
[2024-01-01] MEDS: BMX LIQUID 180 ML 10 ML PO ×2 (10:44→21:11)
[2024-01-01 15:00] VITALS: BP 105/54; PULSE 80; RESP 16; TEMP 36.3; O2SAT 93
--- NOTE | 2024-01-01 16:46 | CASEMGMT ---
Social Work SW met with patient at bedside to complete MDS. Patient completed BIM () and PHQ-2 (09/07) RITCHIE Agustin
[2024-01-01] MEDS: Pregabalin 25 MG Capsule PO ×3 (18:37→23:56)
[2024-01-01] MEDS: Pramipexole Di-HCl 0.125 MG Tablet PO ×3 (18:38→23:56)
[2024-01-01] MEDS: Magnesium Chloride 64 MG Delay Rel.Tablet PO (20:57)
[2024-01-01] MEDS: MELATONIN 3 MG TABLET PO (20:59)
[2024-01-02] MEDS: oxyCODONE 5 MG Tablet 10 MG PO ×5 (05:13→22:10)
[2024-01-02] MEDS: Acetaminophen 500 MG Tablet 1000 MG PO ×3 (05:14→21:48)
[2024-01-02] MEDS: Pilocarpine HCl 5 MG Tablet 2.5 MG PO ×3 (05:15→21:49)
[2024-01-02] MEDS: Venlafaxine XR 75 MG Capsule PO (09:24)
[2024-01-02] MEDS: Multivitamins,Therapeutic Tablet 1 TABLET PO (09:24)
[2024-01-02] MEDS: Zinc Sulfate 50 mg zinc (220 mg) ORAL capsule PO (09:24)
[2024-01-02] MEDS: Multivitamin (Healthy Eyes) Capsule 1 CAP PO (09:25)
[2024-01-02] MEDS: Hydroxychloroquine 200 MG Tablet PO (09:25)
[2024-01-02] MEDS: Vitamin B Comp W-C Capsule 1 CAP PO (09:25)
[2024-01-02] MEDS: Calcium Carb/Vitamin D 1 TABLET Tablet 2 TABLET PO ×2 (09:25→21:46)
[2024-01-02] MEDS: Senna/Docusate Sodium 1 Tablet 2 TABLET PO ×2 (09:25→21:47)
[2024-01-02] MEDS: Iron Polysaccharide Complex 150 MG CAPSULE PO (09:26)
[2024-01-02] MEDS: Polyethylene Glycol 3350 17 GM PACKET PO (09:26)
[2024-01-02] MEDS: APIXABAN 2.5 MG TABLET (WCH) PO ×2 (09:26→21:47)
[2024-01-02] MEDS: Glycerin/Hypromellose/PEG400 15 ml Bottle EACH EYE (09:27)
[2024-01-02] MEDS: Fluticasone 0.05% 1 SPRAY NASAL.SRY 2 SPRAY NASAL (09:27)
[2024-01-02] MEDS: Menthol/Lanolin/Calamine/Znox 113 GM Tube 1 APPLIC TOPICAL ×2 (09:31→21:51)
[2024-01-02] MEDS: Tuberculin,Purif.prot.deriv. 50 TU/ML Vial 0.1 ML ID (11:20)
[2024-01-02] MEDS: BMX LIQUID 180 ML 10 ML PO ×2 (11:30→22:11)
[2024-01-02 15:10] VITALS: BP 94/52; PULSE 82; RESP 14; TEMP 36.6; O2SAT 99
[2024-01-02] MEDS: Pregabalin 25 MG Capsule PO ×2 (17:26→22:07)
[2024-01-02] MEDS: Pramipexole Di-HCl 0.125 MG Tablet PO ×2 (17:26→21:47)
[2024-01-02] MEDS: Magnesium Chloride 64 MG Delay Rel.Tablet PO (21:47)
[2024-01-02] MEDS: MELATONIN 3 MG TABLET PO (21:49)
[2024-01-02 23:00] VITALS: RESP 16
[2024-01-03] MEDS: Pramipexole Di-HCl 0.125 MG Tablet PO ×3 (00:45→21:47)
[2024-01-03] MEDS: Pregabalin 25 MG Capsule PO ×3 (00:46→21:46)
[2024-01-03] MEDS: Pilocarpine HCl 5 MG Tablet 2.5 MG PO ×3 (05:28→21:46)
[2024-01-03] MEDS: Acetaminophen 500 MG Tablet 1000 MG PO ×3 (05:28→21:46)
[2024-01-03] MEDS: oxyCODONE 5 MG Tablet 10 MG PO ×4 (05:29→17:58)
[2024-01-03] MEDS: Fluticasone 0.05% 1 SPRAY NASAL.SRY 2 SPRAY NASAL (09:38)
[2024-01-03] MEDS: Calcium Carb/Vitamin D 1 TABLET Tablet 2 TABLET PO ×2 (09:39→21:47)
[2024-01-03] MEDS: APIXABAN 2.5 MG TABLET (WCH) PO ×2 (09:39→21:47)
[2024-01-03] MEDS: Polyethylene Glycol 3350 17 GM PACKET PO (09:40)
[2024-01-03] MEDS: Vitamin B Comp W-C Capsule 1 CAP PO (09:40)
[2024-01-03] MEDS: Multivitamins,Therapeutic Tablet 1 TABLET PO (09:40)
[2024-01-03] MEDS: Zinc Sulfate 50 mg zinc (220 mg) ORAL capsule PO (09:40)
[2024-01-03] MEDS: Hydroxychloroquine 200 MG Tablet PO (09:40)
[2024-01-03] MEDS: Senna/Docusate Sodium 1 Tablet 2 TABLET PO ×2 (09:41→21:46)
[2024-01-03] MEDS: Venlafaxine XR 75 MG Capsule PO (09:41)
[2024-01-03] MEDS: Glycerin/Hypromellose/PEG400 15 ml Bottle EACH EYE ×2 (09:41→14:24)
[2024-01-03] MEDS: Multivitamin (Healthy Eyes) Capsule 1 CAP PO (09:41)
[2024-01-03] MEDS: Atorvastatin Calcium 10 MG Tablet 5 MG PO (09:41)
[2024-01-03] MEDS: Iron Polysaccharide Complex 150 MG CAPSULE PO (09:42)
[2024-01-03 16:00] VITALS: BP 135/78; PULSE 80; RESP 12; TEMP 36.9; O2SAT 98
[2024-01-03] MEDS: BMX LIQUID 180 ML 10 ML PO ×2 (18:02→21:55)
--- NOTE | 2024-01-03 20:50 | NURSING ---
Report received concerning redness and swelling to LLE. Trace non-pitting edema noted to LLE from hip to foot. Skin warm to touch and equal in temperature to BLE- resident notes previous nurse thought skin to left thigh felt warmer than to rt thigh. Knees cool to touch b/l. One small area to the lateral aspect of the LLE pink and w/ a dry, flaky patch. 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 She has been applying lotion to the dry patch of skin for relief of the dry skin. B/L pedal pulses +2. Cap refill less than 3 seconds. Toes mobile. Negative Rachel's sign to BLE. Currently taking Eliquis 2.5 mg po BID for DVT prophylaxis. Reviewed assessment findings w/ pt and staff to continue to monitor.
[2024-01-03] MEDS: Magnesium Chloride 64 MG Delay Rel.Tablet PO (21:47)
[2024-01-03] MEDS: MELATONIN 3 MG TABLET PO (21:47)
[2024-01-03] MEDS: Menthol/Lanolin/Calamine/Znox 113 GM Tube 1 APPLIC TOPICAL (21:48)
[2024-01-04] MEDS: Pregabalin 25 MG Capsule PO ×3 (00:47→21:35)
[2024-01-04] MEDS: Pramipexole Di-HCl 0.125 MG Tablet PO ×3 (00:47→21:38)
[2024-01-04] MEDS: Pilocarpine HCl 5 MG Tablet 2.5 MG PO ×3 (06:04→21:40)
[2024-01-04] MEDS: Acetaminophen 500 MG Tablet 1000 MG PO ×3 (06:04→21:39)
[2024-01-04] MEDS: BMX LIQUID 180 ML 10 ML PO (06:05)
--- NOTE | 2024-01-04 08:11 | NURSING ---
Patient rang call light, upon answer patient was not responding but excessive coughing w/ patient in distress. JUMPBASTING ARMHOLE BASTER And nurse ran to room. Patient was visibly choking w/ minimal cyanosis noted. Patient stood up by staff and administered back blows to patient. At first this was not successful. But then patient was able to clear obstruction. Patient continued to cough after dislodgement of obstruction. Patient still exertionally breathing w/ noticeable coughing. Patient then was able to catch breath and stopped coughing. Returned to chair. VSS. Pt claims this has happened numerous times before, that she has issues w/ swallowing all the time. Note left for MD to consider CXR for possible aspiration.
[2024-01-04] MEDS: Vitamin B Comp W-C Capsule 1 CAP PO (09:06)
[2024-01-04] MEDS: Polyethylene Glycol 3350 17 GM PACKET PO (09:06)
[2024-01-04] MEDS: Fluticasone 0.05% 1 SPRAY NASAL.SRY 2 SPRAY NASAL (09:06)
[2024-01-04] MEDS: APIXABAN 2.5 MG TABLET (WCH) PO ×2 (09:06→21:36)
[2024-01-04] MEDS: Glycerin/Hypromellose/PEG400 15 ml Bottle EACH EYE ×2 (09:06→21:44)
[2024-01-04] MEDS: Iron Polysaccharide Complex 150 MG CAPSULE PO (09:06)
[2024-01-04] MEDS: Multivitamin (Healthy Eyes) Capsule 1 CAP PO (09:07)
[2024-01-04] MEDS: Venlafaxine XR 75 MG Capsule PO (09:07)
[2024-01-04] MEDS: Hydroxychloroquine 200 MG Tablet PO (09:07)
[2024-01-04] MEDS: Calcium Carb/Vitamin D 1 TABLET Tablet 2 TABLET PO ×2 (09:07→21:36)
[2024-01-04] MEDS: Zinc Sulfate 50 mg zinc (220 mg) ORAL capsule PO (09:07)
[2024-01-04] MEDS: Multivitamins,Therapeutic Tablet 1 TABLET PO (09:07)
[2024-01-04] MEDS: Senna/Docusate Sodium 1 Tablet 2 TABLET PO ×2 (09:07→21:41)
[2024-01-04] MEDS: Menthol/Lanolin/Calamine/Znox 113 GM Tube 1 APPLIC TOPICAL ×2 (09:08→21:53)
[2024-01-04] MEDS: oxyCODONE 5 MG Tablet 10 MG PO ×4 (09:37→21:48)
[2024-01-04 16:00] VITALS: BP 114/78; PULSE 78; RESP 12; TEMP 36.9; O2SAT 98
--- NOTE | 2024-01-04 17:10 | RAD_ITS ---
STUDY: X-RAY CHEST REASON FOR EXAM: Female, 88 years old. Aspiration. TECHNIQUE: PA and lateral views of the chest. COMPARISON: Comparison is made with prior examination dated December 22, 2023. FINDINGS: The lungs are clear and expanded. Scattered calcified granulomas. There is no demonstrated pleural abnormality. Normal size heart. Calcified bilateral hilar lymph nodes. Normal visualized pulmonary arteries. Normal visualized aortic arch and descending thoracic aorta. There is demineralization of the osseous structures. Increased kyphosis. Dextroscoliosis. Normal visualized ribs, clavicles, and shoulders. Status post cholecystectomy. RAD/Chest PA and Lateral IMPRESSION: No acute abnormality is seen. Electronically Signed: John Peter MD at 9:26 EDT ,
[2024-01-04] MEDS: Magnesium Chloride 64 MG Delay Rel.Tablet PO (21:35)
[2024-01-04] MEDS: MELATONIN 3 MG TABLET PO (21:36)
[2024-01-04 22:09] VITALS: PULSE 80; RESP 16
[2024-01-05] MEDS: Pramipexole Di-HCl 0.125 MG Tablet PO ×3 (00:09→21:13)
[2024-01-05] MEDS: Pregabalin 25 MG Capsule PO ×3 (00:09→21:14)
[2024-01-05] MEDS: BMX LIQUID 180 ML 10 ML PO (00:10)
[2024-01-05] MEDS: Pilocarpine HCl 5 MG Tablet 2.5 MG PO ×3 (05:09→21:14)
[2024-01-05] MEDS: Acetaminophen 500 MG Tablet 1000 MG PO ×3 (05:09→21:14)
[2024-01-05] MEDS: oxyCODONE 5 MG Tablet 10 MG PO ×4 (05:10→21:14)
[2024-01-05 06:46] VITALS: PULSE 67; RESP 16; O2SAT 96
[2024-01-05] MEDS: Multivitamins,Therapeutic Tablet 1 TABLET PO (08:16)
[2024-01-05] MEDS: Zinc Sulfate 50 mg zinc (220 mg) ORAL capsule PO (08:17)
[2024-01-05] MEDS: Hydroxychloroquine 200 MG Tablet PO (08:17)
[2024-01-05] MEDS: Multivitamin (Healthy Eyes) Capsule 1 CAP PO (08:17)
[2024-01-05] MEDS: Atorvastatin Calcium 10 MG Tablet 5 MG PO (08:17)
[2024-01-05] MEDS: APIXABAN 2.5 MG TABLET (WCH) PO ×2 (08:17→21:13)
[2024-01-05] MEDS: Iron Polysaccharide Complex 150 MG CAPSULE PO (08:17)
[2024-01-05] MEDS: Vitamin B Comp W-C Capsule 1 CAP PO (08:17)
[2024-01-05] MEDS: Venlafaxine XR 75 MG Capsule PO (08:18)
[2024-01-05] MEDS: Fluticasone 0.05% 1 SPRAY NASAL.SRY 2 SPRAY NASAL (08:18)
[2024-01-05] MEDS: Calcium Carb/Vitamin D 1 TABLET Tablet 2 TABLET PO ×2 (08:18→21:13)
[2024-01-05] MEDS: Senna/Docusate Sodium 1 Tablet 2 TABLET PO ×2 (08:19→21:13)
[2024-01-05] MEDS: Glycerin/Hypromellose/PEG400 15 ml Bottle EACH EYE ×2 (08:19→21:16)
[2024-01-05] MEDS: Menthol/Lanolin/Calamine/Znox 113 GM Tube 1 APPLIC TOPICAL ×2 (08:21→21:20)
[2024-01-05 11:21] VITALS: BMI 22.8
--- NOTE | 2024-01-05 11:33 | NURSING ---
Addendum entered by Kyara Ngo 01/06/24 09:51: Update from Dr. Pineda' office that he will be by today or Thursday to see patient. Updated patient. Original Note: Spoke with Candice at Dr. Pineda's office, she will have him come by and see patient on TCU. They will cancel appt in office for 01/06/24. Patient updated.
[2024-01-05 15:06] VITALS: BP 112/58; PULSE 78; RESP 14; TEMP 36.9; O2SAT 95
[2024-01-05] MEDS: Magnesium Chloride 64 MG Delay Rel.Tablet PO (21:14)
[2024-01-05] MEDS: MELATONIN 3 MG TABLET PO (21:15)
[2024-01-06] MEDS: Pramipexole Di-HCl 0.125 MG Tablet PO ×3 (00:23→20:44)
[2024-01-06] MEDS: Pregabalin 25 MG Capsule PO ×3 (00:24→20:47)
[2024-01-06] MEDS: oxyCODONE 5 MG Tablet 10 MG PO ×4 (04:34→21:44)
[2024-01-06] MEDS: Acetaminophen 500 MG Tablet 1000 MG PO ×3 (05:19→21:44)
[2024-01-06] MEDS: Pilocarpine HCl 5 MG Tablet 2.5 MG PO ×3 (05:19→21:45)
--- NOTE | 2024-01-06 09:38 | ST.MBS ---
Modified Barium Swallow Patient Information Study Date: 01/06/24 Study Time: 08:30 Direct Billable Minutes: 120 Total Minutes procedure & reportin Diagnosis: Dysphagia R13.10 Referring Physician: Paulino Gaona Chi Reason for Referral: Objectively assess swallow function, assess risk for aspiration, and determine recommendations for least restrictive diet textures and compensatory strategies to improve safety of swallow. Medical History: PMH: Anemia, Anxiety, Depression, Arthritis, Atrial fibrillation, Behcet's disease, Constipation, Crohns disease, Diverticulitis, Dysphagia, Exanthematous disorder, Fibromyalgia, GERD, Glossodynia, Hx of Sjogren's disease, High cholesterol, Hx of diverticulitis, Hx of IBS, HLD, Lymphocytic colitis, Meningitis, Sleep apnea, TIA, Wears partial dentures. Pt [facility] to [facility] after a fall with complaints of L hip pain. Pt tripped and fell in her garage and was unable to stand. Her x-ray revealed L hip fracture. Pt received L hip hemiarthroplasty on 12/23/2023. She was evaluated via bedside swallow evaluation on 12/26/2023 and she was recommended a soft and bite sized diet to decrease aspiration or choking risk. Pt reports hx of choking and need for the Heimlich in the past. During her stay on the TCU she experienced a choking episode that required the Heimlich maneuver and back blows to clear her airway. Of note, her lungs have been rhonchorous since her choking event. Pt was recommended for an MBS study to further assess her risk for aspiration and reflux aspiration. Dr. Hoyt has been involved in the pt's care in the past for GI concerns. According to the records, she sees Dr. Hoyt every 4-6 months to monitor GI symptoms. The pt reported to the evaluating BUSINESS ADMINISTRATION TEACHER that her esophagus was dilated in the past and she had a previous EGD and esophageal motility test at the [facility]. Current Diet Ordered: Easy to Chew / Thin Liquids Dentition: Partials and Missing Teeth Mental Status: WNL Respiratory Status: Oxygenating on Room Air Penetration-Aspiration Scale Penetration-Aspiration Scale: OBJECTIVE ASSESSMENT OF SWALLOW FUNCTION (QUANTITATIVE ? PER TRIAL): PENETRATION / ASPIRATION SCALE (RM): 1 = does not enter airway 2 = enters airway/above vocal folds/ejected 3 = enters airway/above vocal folds/not ejected 4 = enters airway/contacts vocal folds/ejected 5 = enters airway/contacts vocal folds/not ejected 6 = enters airway/below vocal folds/ejected 7 = enters airway/below vocal folds/not ejected despite effort 8 = enters airway/below vocal folds/no effort VIDEOFLOROSCOPIC SCALE SCORE (RM): Grade I = aspiration of material that has penetrated into the laryngeal vestibule, intact cough reflex Grade II = aspiration < 10 % of the bolus, intact cough reflex Grade III = aspiration of < 10 % of the bolus, reduced cough reflex or aspiration of > 10 % of the bolus, intact cough reflex Grade IV = aspiration of > 10 % of the bolus, reduced cough reflex Penetration-Aspiration Scale Score Thin Liquid via teaspoon: Result: 1= does not enter airway Thin Liquid via teaspoon Trial 2: Result: 1= does not enter airway Thin Liquid via large single sip: cup: Result: 2= enter airway/above vocal folds/ejected Thin Liquid via sequential sips: cup: Result: 2= enter airway/above vocal folds/ejected Comment: Esophageal screen [place] Thick Liquid via large single sip: cup: Result: 2= enter airway/above vocal folds/ejected Pudding - Esophageal Screen: Result: 1= does not enter airway Thin Liquid via single sip: straw: Result: 2= enter airway/above vocal folds/ejected 1/2 Cookie: Result: 1= does not enter airway Comment: Esophageal screen Thin Liquid via sequential sips:straw: Result: 2= enter airway/above vocal folds/ejected Oral Phase Labial Seal: Interlabial escape, no progression to anterior lip Tongue Control During Bolus Hold: Posterior escape of greater than half of bolus Bolus Preparation/Mastication: Slow prolonged chewing/mashing with complete recollection Bolus Transport/Lingual Motion: Slowed tongue motion Oral Residue: Residue collection on oral structures (Piecemeal deglutition of cookie trial) Pharyngeal Phase Initiation of Pharyngeal Swallow: Bolus head in pyriforms Soft Palate Elevation: Trace column of contrast/air between soft palate and pharyngeal wall Laryngeal Elevation: Comp. Superior move thyroid cart w/comp. apprx arytenoid cart-epig pet Anterior Hyoid Excursion: Complete anterior movement Epiglottic Movement: Complete inversion Laryngeal Vestibule Closure at Height of Swallow: Incomplete; narrow column of air/contrast in laryngeal vestibule Pharyngeal Stripping Wave: Present - complete Pharyngoesophageal Segment Opening: Complete distension and complete duration; no obstruction of flow Tongue Base Retraction: Narrow column of contrast between tongue base & post. pharyngeal wall Pharyngeal Residue: Collection of residue within or on pharyngeal structures Esophageal Phase Esophageal Clearance: Esophageal retention w/ retrograde flow below pharyngoesophageal seg. Diagnosis/Impression Diagnosis: Mild Oral Dysphagia R13.10, Moderate Esophageal Dysphagia R13.14 Impression: The oral phase is primarily marked by... -Decreased bolus control with >1/2 of the bolus spilling posteriorly to the pyriforms prior to swallow onset observed with thin liquids especially. -Slowed tongue motion for A-P transport. -Oral residue after the swallow with piecemeal deglutition of cookie trial, which cleared with independent initiation of a second swallow. -Prolonged, but adequate mastication of cookie trial. -Of note, patient reports xerostomia. The pharyngeal phase is grossly WNL. Trace-mild pharyngeal residue likely due to mildly decreased tongue base retraction. Laryngeal penetration across thin and nectar thick liquid consistencies which all reliably ejected from the laryngeal vestibule after the swallow. No aspiration observed during the study. The esophageal phase is primarily marked by... -Significant esophageal retention of pudding and cookie trials in the upper to mid esophagus. Mild retention of pudding in the lower esophagus. Thin liquid wash was somewhat effective in clearing pudding and cookie from the esophagus; however, thin liquids also demonstrated some retention in the lower esophagus, as well as retrograde flow remaining well below upper esophageal sphincter (UES). -CP bar present at the level of C5-C6; however, it did not appear to impact bolus clearance through the upper esophageal sphincter. Recommendations Diet: Mechanical Soft Textures (Minced and moist textures - IDDSI level 5) and Thin Liquids Comment: Following GI intervention, please advance diet as recommended by surveyor helper rod. Compensatory Strategies: Small Bites, Small Sips, Slow Rate, Alternate bites/solids and sips/liquids, Sitting upright and Remain sitting upright for 30 minutes after PO intake Supervision: Distant Supervision (Pt is recommended to eat meals in the TCU dining room) Recommend Repeat Modified Barium Swallow: No Need for Skilled Speech Therapy Services: Yes Comment: -Train the patient in use of strategies to decrease risk for aspiration and reflux aspiration, as well as choking risk due to reflux aspiration. -Ongoing assessment of diet tolerance of recommended textures. -Train the patient oropharyngeal exercise program to improve bolus control and lingual strength/coordination (lingual resistance, lingual ROM/coordination). Recommended Referrals: GI Consult Education Completed: 1. Described result of evaluation. and 2. Pt understands evaluation & agrees with goals and treatment plan. (BUSINESS ADMINISTRATION TEACHER educated pt in rationale for minced and moist diet due to BUSINESS ADMINISTRATION TEACHER concerns for choking with poor esophageal clearance of pudding and especially cookie on the test. Pt agreeable to diet downgrade.) Comment: Assessment results and recommendations reviewed with RNMisa. Status Active ST Patient: Active Contact Information [facility] Speech Therapy:: Fe Vo M.A. [facility]-BUSINESS ADMINISTRATION TEACHER? Speech-Language Pathologist?? [facility] [address]?? [place] [address]?? [email or web address]?? [phone]
[2024-01-06] MEDS: Multivitamin (Healthy Eyes) Capsule 1 CAP PO (09:50)
[2024-01-06] MEDS: Hydroxychloroquine 200 MG Tablet PO (09:51)
[2024-01-06] MEDS: Venlafaxine XR 75 MG Capsule PO (09:51)
[2024-01-06] MEDS: Multivitamins,Therapeutic Tablet 1 TABLET PO (09:51)
[2024-01-06] MEDS: Vitamin B Comp W-C Capsule 1 CAP PO (09:51)
[2024-01-06] MEDS: APIXABAN 2.5 MG TABLET (WCH) PO ×2 (09:52→21:45)
[2024-01-06] MEDS: Senna/Docusate Sodium 1 Tablet 2 TABLET PO ×2 (09:53→21:44)
[2024-01-06] MEDS: Iron Polysaccharide Complex 150 MG CAPSULE PO (09:53)
[2024-01-06] MEDS: Calcium Carb/Vitamin D 1 TABLET Tablet 2 TABLET PO ×2 (09:53→20:45)
[2024-01-06] MEDS: Zinc Sulfate 50 mg zinc (220 mg) ORAL capsule PO (09:54)
[2024-01-06] MEDS: Fluticasone 0.05% 1 SPRAY NASAL.SRY 2 SPRAY NASAL (09:54)
[2024-01-06] MEDS: Menthol/Lanolin/Calamine/Znox 113 GM Tube 1 APPLIC TOPICAL ×2 (10:01→20:46)
--- NOTE | 2024-01-06 11:29 | NURSING ---
Swallow study complete today. NO for minced/moist diet and to be upright and in dining room for all meals for distant supervision. Patient is aware of these changes.
--- NOTE | 2024-01-06 12:30 | NURSING ---
Addendum entered by Misa Mary 01/06/24 18:55: Dr. Pineda places order for nursing to remove shantel on 01/08/24. Original Note: Dr. Pineda in to see patient today while she was eating lunch. He reports he will come and remove shantel on Thursday01/08/24 and that she will need to f/u in 4 weeks.
--- NOTE | 2024-01-06 13:02 | PN.ORTHO_ITS ---
Subjective Subjective Patient seen and examined she is doing well she is ambulating with physical therapy her pain is controlled Objective Data Objective Data Vital Signs: Vital Signs Temp Pulse Resp BP Pulse Ox O2 Del Method 98.4 F 78 14 112/58 L 95 Room Air 01/05/24 15:06 01/05/24 15:06 01/05/24 15:06 01/05/24 15:06 01/05/24 15:06 01/05/24 15:06 Oxygen Delivery Method Room Air Weight: 109 lb 3.2 oz Body Mass Index (BMI) 22.8 Intake & Output: Intake and Output for Last 24 Hours 01/04/24 01/05/24 01/06/24 23:59 23:59 23:59 Intake Total 680 / 680 960 / 960 240 / 240 Balance 680 / 680 960 / 960 240 / 240 Lab / Micro Data 01/01/24 05:29 01/01/24 05:29 Physical Exam Const alert and oriented x3 General Appearance: cooperative Extremity Extremity Narrative: Left hip incision is well-approximated shantel in place no signs of infection or blood clot neurovascular intact left lower extremity Assessment & Plan Assessment/Plan (1) S/P hip hemiarthroplasty: PLAN: Plan Continue PT OT weightbearing as tolerated hip precautions DVT prophylaxis for a total of 3 weeks postop [place] to be removed Thursday, January 07 continue daily incisional care with antibacterial soap and warm water Follow-up with me in the office 4 weeks from now 6 weeks postop. Call with any questions or concerns
[2024-01-06 16:00] VITALS: BP 127/59; PULSE 77; RESP 18; TEMP 36.6; O2SAT 95
--- NOTE | 2024-01-06 17:01 | CON.PCM.GI_ITS ---
HPI Consult Data Date of Consult: 01/06/24 HPI Narrative Reason for Consultation: Dysphagia HPI Narrative: MICHAEL VALENZUELA, is a 88 F PMHx: Chronic anemia, Anxiety and Depression, PAF, Behcet's disease/Sjogren's disease, GERD, Crohn's disease, HLD, Chronic migraines, MARILEE, Hx choroid melanoma left eye, Ankylosing spondylitis, RLS who presents to the [facility] ED on 12/22/23 with history of unfortunately mechanical fall in her garage onto the hard floor, tripping with significant sharp left lower extremity and hip pain, unable to bear weight prompting eventual ED evaluation. Patient reports that she does not take any anticoagulation but a daily baby aspirin given her underlying PAF history. Patient underwent left hip hemiarthroplasty on 2023. She has been in the transitional care unit getting stronger before she goes home. She has been having some intermittent esophageal dysphagia. I got to know her back in 2021 for esophageal dysphagia. EGD performed 11.04.21 finding abnormal esophageal motility suspicious for esophageal spasm; moderate Schatzki ring, dilated with Savary to 51F; multiple gastric polyps; single GE junction polyp with chronic inflammation without metaplasia; duodenitis. Remaining biopsies without pathologic diagnosis. [facility] Medical History (Updated 01/06/24 @ 17:[address] Alexander Friend, DO) Anemia Anxiety and depression Arthritis Atrial fibrillation Back pain Behcet's disease Cardiology follow-up encounter Cataract Choroid melanoma of left eye Constipation Crohns disease Diverticulitis Dysphagia Exanthematous disorder Fibromyalgia GERD (gastroesophageal reflux disease) Glossodynia H/O Sjogren's disease High cholesterol History of diverticulitis History of echocardiogram History of IBS Hyperlipidemia Injury of back lap repair bladder injury Low back pain Lymphocytic colitis Meningitis Migraine headache Non-smoker Raynaud's disease Sleep apnea TIA (transient ischemic attack) Wears glasses Wears partial dentures Home Medications aspirin 81 mg tablet,delayed release 81 mg PO DINNER heart health 03/29/16 [History Last Taken 10/31/21] atorvastatin 10 mg tablet 5 mg PO QODAY cholesterol 03/29/16 [History Last Taken 09/26/18] calcium citrate 315 mg-vitamin D3 5 mcg (200 unit) tablet 2 tab PO BID supplement 03/29/16 [History Last Taken 09/27/18] cyclosporine 0.05 % eye drops in a dropperette (Restasis) 1 drp EACH EYE BID eye 03/29/16 [History Last Taken 09/27/18] flaxseed oil 1,000 mg capsule 1,000 mg PO DAILY supplement 03/29/16 [History Last Taken 09/27/18] hydroxychloroquine 200 mg tablet 200 mg PO DAILYCM arthritis 03/29/16 [History Last Taken 09/26/18] melatonin 3 mg tablet 3 mg PO QHS sleep 03/29/16 [History Last Taken 09/26/18] pilocarpine HCl 5 mg tablet 2.5 mg PO TID bp 03/29/16 [History Last Taken 09/27/18] pramipexole 0.125 mg tablet (Mirapex) 0.125 mg PO .1900, 2200 restless legs 03/29/16 [History Last Taken 09/26/18] oxycodone-acetaminophen 5 mg-325 mg tablet (Percocet) 0.5 tab PO BID 09/19/16 [History Last Taken 09/26/18] fluticasone propionate 50 mcg/actuation nasal spray,suspension 2 spry NASAL DAILY allergies 09/27/18 [History Last Taken 09/24/18] magnesium oxide 400 mg PO QHS supplement 09/27/18 [History Last Taken 09/26/18] multivitamin 1 tab PO DAILY vitamin 09/27/18 [History Last Taken 09/26/18] venlafaxine 150 mg capsule,extended release 24 hr 75 mg PO DAILY anxiety 09/27/18 [History Last Taken 09/27/18] vitamin B complex 1 tab PO DAILY vitamin 09/27/18 [History Last Taken 09/26/18] white petrolatum-mineral oil 94 %-3 % eye ointment (Systane Nighttime) 3.5 g OP DAILY dry eye 09/27/18 [History Last Taken 09/26/18] pregabalin 25 mg capsule (Lyrica) 25 mg PO TID neuropathy 08/16/21 [History Last Taken Unknown] zinc 50 mg tablet 50 mg PO DAILY supplement 10/31/21 [History Last Taken Unknown] albuterol sulfate 90 mcg/actuation aerosol inhaler (Ventolin HFA) 2 puff inhalation Q4H PRN shortness of breath or wheezing #8.5 grams 02/03/23 [Rx Last Taken Unknown] lubiprostone 24 mcg capsule (Amitiza) 24 mcg PO DAILY ? #30 caps 12/14/23 [Rx Last Taken Unknown] acetaminophen 325 mg tablet 650 mg (2 x 325 mg) PO Q4H PRN PRN Fever, pain 1- 10/10 #0 tabs 12/25/23 [Rx Last Taken Unknown] apixaban 5 mg tablet (Eliquis) 2.5 mg (1/2 x 5 mg) PO BID blood thin 30 days #30 tabs 12/25/23 [Rx Last Taken Unknown] magnesium hydroxide 400 mg/5 mL oral suspension 30 ml PO DAILY PRN PRN Constipation #0 mL 12/25/23 [Rx Last Taken Unknown] oxycodone 5 mg tablet 5 mg PO Q4H PRN PRN PAIN 4-6 #0 tabs 12/25/23 [Rx Last Taken Unknown] sennosides 8.6 mg-docusate sodium 50 mg tablet (Stool Softener-Stimulant Laxative) 2 tab PO BID stool softener #0 tabs 12/25/23 [Rx Last Taken Unknown] Allergy/AdvReac Type Severity Reaction Status Date / Time amoxicillin Allergy Rash Verified 05/13/23 14:53 difluprednate [From Durezol] Allergy Other Verified 05/13/23 14:53 methylprednisolone Allergy Rash Verified 05/13/23 14:53 Penicillins Allergy Unknown Verified 05/13/23 14:53 prednisolone Allergy Swelling Verified 05/13/23 14:53 sucralfate [From Carafate] Allergy restless Verified 05/13/23 14:53 legs diphenhydramine AdvReac Intermediate Other Verified 05/13/23 14:53 [From Benadryl] amitriptyline AdvReac sleepiness Verified 05/13/23 14:53 citalopram AdvReac Diarrhea Verified 05/13/23 14:53 codeine AdvReac Nausea Verified 05/13/23 14:53 dexamethasone AdvReac Other Verified 05/13/23 14:53 duloxetine HCl AdvReac Diarrhea Verified 05/13/23 14:53 [From Cymbalta] Iodinated Contrast Media AdvReac unknown Verified 05/13/23 14:53 [Iodinated Contrast- Oral and IV Dye] lamotrigine [From Lamictal] AdvReac DRUGGED Verified 05/13/23 14:53 FEELING metoclopramide HCl AdvReac INVOLUNTARY Verified 05/13/23 14:53 [From Reglan] BODY MOVEMENTS mirabegron [From Myrbetriq] AdvReac Other Verified 05/13/23 14:53 promethazine HCl AdvReac INVOLUNTARY Verified 05/13/23 14:53 [From Phenergan] BODY MOVEMENTS sertraline HCl [From Zoloft] AdvReac Diarrhea Verified 05/13/23 14:53 sulfamethoxazole AdvReac FELT Verified 05/13/23 14:53 [From Bactrim] WEIRD, HEAD NUMB, FELT DRUGGED, SHAKEY, NAUSEATED trimethoprim [From Bactrim] AdvReac FELT Verified 05/13/23 14:53 WEIRD, HEAD NUMB, FELT DRUGGED, SHAKEY, NAUSEATED Family History Mother Diabetes Breast cancer Arthritis Asthma auto immune disease Father Heart disease Hypertension Hyperlipidemia CVA (cerebral vascular accident) Arthritis Surgical History (Updated 01/06/24 @ 13:[address] Haroon Pineda DO) H/O adenoidectomy H/O colonoscopy H/O cystoscopy H/O dilation and curettage H/O endoscopy H/O vaginal hysterectomy History of cholecystectomy History of tonsillectomy Hx of appendectomy Hx of bilateral cataract extraction Hx of eye surgery Social History household members: none housing: house Smoking Status: Never smoker alcohol intake: never substance use type: does not use ROS Constitutional Constitutional: Denies chills, fever(s) or weight gain ENT HEENT: Denies headache(s), nasal congestion or nasal discharge Cardiovascular Cardiovascular: Denies chest pain or palpitations Respiratory/Chest Respiratory/Chest: Denies cough, excessive phlegm production or shortness of breath with exertion Gastrointestinal Gastrointestinal: Denies abdominal pain, nausea or vomiting Genitourinary Genitourinary: Denies dysuria Musculoskeletal Musculoskeletal: Denies joint pain or joint swelling Integumentary Integumentary: Denies rash or wounds Neurologic Neurologic: Denies focal weakness, numbness or tingling Psychiatric Psychiatric: Denies anxiety, auditory hallucinations, depression, homicidal idea tion or suicidal ideation Physical Exam Const alert General Appearance: cooperative HEENT normocephalic Eyes PERRL and EOMs intact bilaterally Neck supple, no JVD and no carotid bruits Resp normal respiratory effort, normal air movement and clear to auscultation bilaterally Cardio regular rate and regular rhythm GI normal to inspection, nondistended, normoactive bowel sounds, non-tender and non-distended Extremity normal capillary refill General Extremity: Negative for edema Skin no rashes or lesions noted General Skin Exam: no breakdown Psych affect normal Appearance: appropriate Lab / Micro Data 01/01/24 05:29 01/01/24 05:29 Assessment & Plan Assessment/Plan (1) Dysphagia: PLAN: Plan 88-year-old with multiple comorbidities status post recent hip fracture status left hip hemiarthroplasty on 12 23 2023. She underwent modified barium swallow: She is given a diagnosis of diagnosis: Mild Oral Dysphagia, Moderate Esophageal Dysphagia. She also has an underlying disorder of the esophagus secondary to inappropriate esophageal motility and esophageal spasm as seen on manometry. Recommend upper endoscopy with possible Botox administration and dilation of the proximal and mid esophagus. She was explained alternatives, risk, benefits include not withstanding bleeding, infection, sepsis, perforation, need for emergent and . She have an ASA of 3. Charges/Coding Visit Charges Inpatient E&M: 92952 SNF Init L2
[2024-01-06] MEDS: Magnesium Chloride 64 MG Delay Rel.Tablet PO (20:45)
[2024-01-06] MEDS: MELATONIN 3 MG TABLET PO (21:45)
[2024-01-06 22:00] VITALS: PULSE 82; RESP 18; O2SAT 98
[2024-01-07] MEDS: Pregabalin 25 MG Capsule PO ×3 (00:10→21:05)
[2024-01-07] MEDS: Pramipexole Di-HCl 0.125 MG Tablet PO ×3 (00:10→21:05)
--- NOTE | 2024-01-07 03:00 | NURSING ---
Addendum entered by Julia Mclain 01/07/24 06:38: written communication left for Original Note: Patient requests Oxy for dry mouth and to help me sleep. Patient educated on current NPO status and purpose of PRN Oxy to treat pain. Patient verbalizes understanding of medication and NPO status, No distress observed or reported. Call light in reach. States I will try to go with out it. Mouth swabs offered and patient verbalizes appreciation to assist with dry mouth.
[2024-01-07] MEDS: Menthol/Lanolin/Calamine/Znox 113 GM Tube 1 APPLIC TOPICAL ×2 (09:50→21:05)
--- NOTE | 2024-01-07 13:26 | CASEMGMT ---
Social Work SW met with patient at bedside to discuss care plans. SW inquired about contacting daughter, patient informed SW that she will contact daughter, but declined SW calling during discussion. SW educated patient on Medicare insurance coverage and benefits; Medicare will cover 20 days 100% and per patient BCBS will cover an additional 10 days. Patient admitted to TCU on 12/24. informed patient of co-pay days 204/pp. Patient is current goal is to remain on TCU until 01/21 or before pending progress with therapy. Patient informed SW that she had a cognition evaluation that she failed; patient is concerned about results. Patient informed SW that she hopes to improve with speech therapy. Patient is aware of changes in swallow at this time. Patient informed SW that she is currently receiving [employer] at home with delivery of customized meals. Patient informed SW that she is currently unable to afford halfway care due to only receiving SSI and limited funds from pension. Patient informed SW that if she returns home, she will be alone. Patient has some support from friends and neighbors. Patient informed SW that she would like home health care services. SW reviewed home health care services and limited visits. Patient will require additional support in the home from family. SW will continue to follow to assist with discharge planning. RITCHIE Agustin
[2024-01-07 13:55] VITALS: BP 137/62; PULSE 58; RESP 16; TEMP 36.8; O2SAT 96
--- NOTE | 2024-01-07 14:44 | NURSING ---
Resident leaving unit at this time for endoscopy procedure with Dr. Hoyt
--- NOTE | 2024-01-07 17:53 | NURSING ---
Resident returned to unit from procedure at this time
[2024-01-07] MEDS: oxyCODONE 5 MG Tablet PO (18:07)
[2024-01-07] MEDS: APIXABAN 2.5 MG TABLET (WCH) PO (21:06)
[2024-01-07] MEDS: MELATONIN 3 MG TABLET PO (21:06)
[2024-01-07] MEDS: Senna/Docusate Sodium 1 Tablet 2 TABLET PO (21:06)
[2024-01-07] MEDS: Calcium Carb/Vitamin D 1 TABLET Tablet 2 TABLET PO (21:06)
[2024-01-07] MEDS: Acetaminophen 500 MG Tablet 1000 MG PO (21:06)
[2024-01-07] MEDS: Magnesium Chloride 64 MG Delay Rel.Tablet PO (21:06)
[2024-01-07] MEDS: Pilocarpine HCl 5 MG Tablet 2.5 MG PO (21:07)
[2024-01-07] MEDS: Glycerin/Hypromellose/PEG400 15 ml Bottle EACH EYE (21:08)
[2024-01-08] MEDS: Pramipexole Di-HCl 0.125 MG Tablet PO ×3 (00:09→21:24)
[2024-01-08] MEDS: oxyCODONE 5 MG Tablet PO ×4 (00:09→21:20)
[2024-01-08] MEDS: Pregabalin 25 MG Capsule PO ×3 (00:09→21:20)
[2024-01-08 06:04] LABS: Absolute Lymphocyte Count 2.28 X10^3/uL (0.83-4.51); Absolute Neutrophil Count 7.8 X10^3/uL (2.0-7.7); Basophil# 0.06 X10^3/uL; Basophil% 0.5 % (0-1); Eosinophil# 0.47 X10^3/uL; Hematocrit 37.4 % (37-47); Hemoglobin 11.4 g/dL (12.0-15.0); Lymphocyte # 2.28 X10^3/ul (0.83-4.51); Lymphocyte % 19.5 % (19-41); Mean Corp Hgb Conc 30.5 g/dL (32-36); Mean Corpuscular Hgb 26.5 pg (27.0-32.0); Mean Platelet Vol. 10.5 fl (6.2-12.0); Monocyte# 1.04 X10^3/uL; Monocyte% 8.9 % (0-10); NRBC Flagged by Analyzer 0 % (0-5); Neutrophil # 7.79 X10^3/uL (2.7-7.7); Neutrophil % 66.4 % (47-70); Platelet Count 295 K/mm3 (150-450); RBC Distribution Width CV 15.1 % (11.6-14.6); RBC Distribution Width SD 47.3 fl (35.1-43.9); White Blood Count 11.7 K/mm3 (4.4-11.0)
[2024-01-08 06:33] LABS: Anion Gap 6 (5-15); BUN 10 mg/dL (7-18); BUN/Creat Ratio 15.4 RATIO (10-20); Chloride 105 mmol/L (98-107); Creatinine, Serum 0.65 mg/dL (0.55-1.02); EST Glomerular Filtration Rate 91 mL/min (>60); Est Glom Filt Rate - Afr Amer 110 mL/min (>60); Estimated Creatinine Clearance 34.91 ml/min; Glucose 98 mg/dL (74-106); Potassium 3.5 mmol/L (3.5-5.1); Sodium Level 140 mmol/L (136-145)
[2024-01-08] MEDS: Acetaminophen 500 MG Tablet 1000 MG PO ×3 (06:41→21:21)
[2024-01-08] MEDS: Pilocarpine HCl 5 MG Tablet 2.5 MG PO ×3 (06:41→21:22)
[2024-01-08] MEDS: BMX LIQUID 180 ML 10 ML PO ×2 (06:45→14:34)
[2024-01-08] MEDS: Multivitamins,Therapeutic Tablet 1 TABLET PO (10:24)
[2024-01-08] MEDS: Hydroxychloroquine 200 MG Tablet PO (10:24)
[2024-01-08] MEDS: Calcium Carb/Vitamin D 1 TABLET Tablet 2 TABLET PO ×2 (10:24→21:22)
[2024-01-08] MEDS: Multivitamin (Healthy Eyes) Capsule 1 CAP PO (10:24)
[2024-01-08] MEDS: Pantoprazole Sodium 40 MG Tablet PO ×2 (10:25→21:21)
[2024-01-08] MEDS: Zinc Sulfate 50 mg zinc (220 mg) ORAL capsule PO (10:25)
[2024-01-08] MEDS: Vitamin B Comp W-C Capsule 1 CAP PO (10:26)
[2024-01-08] MEDS: Senna/Docusate Sodium 1 Tablet 2 TABLET PO ×2 (10:26→21:24)
[2024-01-08] MEDS: Iron Polysaccharide Complex 150 MG CAPSULE PO (10:26)
[2024-01-08] MEDS: Fluticasone 0.05% 1 SPRAY NASAL.SRY 2 SPRAY NASAL (10:26)
[2024-01-08] MEDS: Venlafaxine XR 75 MG Capsule PO (10:26)
[2024-01-08] MEDS: APIXABAN 2.5 MG TABLET (WCH) PO ×2 (10:26→21:21)
[2024-01-08] MEDS: Menthol/Lanolin/Calamine/Znox 113 GM Tube 1 APPLIC TOPICAL ×2 (10:31→21:27)
--- NOTE | 2024-01-08 15:21 | NURSING ---
[place] removed from left hip at this time. 16 shantel removed and patient tolerated well and steri strips placed. No drainage. Skin pink around staple insertion areas and non-pitting edema to left hip.
[2024-01-08 16:00] VITALS: BP 127/51; PULSE 90; RESP 18; TEMP 36.4; O2SAT 96
[2024-01-08] MEDS: Magnesium Chloride 64 MG Delay Rel.Tablet PO (21:23)
[2024-01-08] MEDS: MELATONIN 3 MG TABLET PO (21:23)
[2024-01-09] MEDS: Pregabalin 25 MG Capsule PO ×3 (00:17→20:45)
[2024-01-09] MEDS: Pramipexole Di-HCl 0.125 MG Tablet PO ×3 (00:17→20:45)
[2024-01-09] MEDS: BMX LIQUID 180 ML 10 ML PO ×2 (00:19→21:03)
[2024-01-09] MEDS: oxyCODONE 5 MG Tablet PO ×5 (02:56→23:06)
[2024-01-09] MEDS: Acetaminophen 500 MG Tablet 1000 MG PO ×3 (06:37→20:52)
[2024-01-09] MEDS: Pilocarpine HCl 5 MG Tablet 2.5 MG PO ×3 (06:37→20:48)
[2024-01-09] MEDS: Menthol/Lanolin/Calamine/Znox 113 GM Tube 1 APPLIC TOPICAL ×2 (09:20→20:55)
[2024-01-09] MEDS: Fluticasone 0.05% 1 SPRAY NASAL.SRY 2 SPRAY NASAL (09:20)
[2024-01-09] MEDS: Atorvastatin Calcium 10 MG Tablet 5 MG PO (09:22)
[2024-01-09] MEDS: APIXABAN 2.5 MG TABLET (WCH) PO ×2 (09:22→20:48)
[2024-01-09] MEDS: Senna/Docusate Sodium 1 Tablet 2 TABLET PO ×2 (09:22→20:50)
[2024-01-09] MEDS: Vitamin B Comp W-C Capsule 1 CAP PO (09:22)
[2024-01-09] MEDS: Hydroxychloroquine 200 MG Tablet PO (09:23)
[2024-01-09] MEDS: Multivitamin (Healthy Eyes) Capsule 1 CAP PO (09:23)
[2024-01-09] MEDS: Iron Polysaccharide Complex 150 MG CAPSULE PO (09:23)
[2024-01-09] MEDS: Calcium Carb/Vitamin D 1 TABLET Tablet 2 TABLET PO ×2 (09:23→20:49)
[2024-01-09] MEDS: Venlafaxine XR 75 MG Capsule PO (09:23)
[2024-01-09] MEDS: Multivitamins,Therapeutic Tablet 1 TABLET PO (09:23)
[2024-01-09] MEDS: Zinc Sulfate 50 mg zinc (220 mg) ORAL capsule PO (09:23)
[2024-01-09] MEDS: Pantoprazole Sodium 40 MG Tablet PO ×2 (09:24→20:49)
[2024-01-09] MEDS: Glycerin/Hypromellose/PEG400 15 ml Bottle EACH EYE ×2 (09:30→20:51)
[2024-01-09 16:00] VITALS: BP 130/61; PULSE 72; RESP 16; TEMP 36.2; O2SAT 96
[2024-01-09] MEDS: MELATONIN 3 MG TABLET PO (20:50)
[2024-01-09] MEDS: Magnesium Chloride 64 MG Delay Rel.Tablet PO (20:50)
[2024-01-09 20:55] VITALS: RESP 16
[2024-01-10] MEDS: Pregabalin 25 MG Capsule PO ×3 (00:02→21:05)
[2024-01-10] MEDS: Pramipexole Di-HCl 0.125 MG Tablet PO ×3 (00:03→21:06)
[2024-01-10] MEDS: oxyCODONE 5 MG Tablet PO ×4 (04:07→18:22)
[2024-01-10 05:15] VITALS: RESP 16
[2024-01-10] MEDS: Pilocarpine HCl 5 MG Tablet 2.5 MG PO ×3 (05:15→21:07)
[2024-01-10] MEDS: Acetaminophen 500 MG Tablet 1000 MG PO ×3 (05:15→21:09)
[2024-01-10] MEDS: Multivitamins,Therapeutic Tablet 1 TABLET PO (08:03)
[2024-01-10] MEDS: Multivitamin (Healthy Eyes) Capsule 1 CAP PO (08:03)
[2024-01-10] MEDS: Iron Polysaccharide Complex 150 MG CAPSULE PO (08:03)
[2024-01-10] MEDS: Venlafaxine XR 75 MG Capsule PO ×2 (08:04→08:06)
[2024-01-10] MEDS: Pantoprazole Sodium 40 MG Tablet PO ×2 (08:05→21:07)
[2024-01-10] MEDS: APIXABAN 2.5 MG TABLET (WCH) PO ×2 (08:07→21:06)
[2024-01-10] MEDS: Fluticasone 0.05% 1 SPRAY NASAL.SRY 2 SPRAY NASAL (08:08)
[2024-01-10] MEDS: Vitamin B Comp W-C Capsule 1 CAP PO (08:08)
[2024-01-10] MEDS: Calcium Carb/Vitamin D 1 TABLET Tablet 2 TABLET PO ×2 (08:10→21:07)
[2024-01-10] MEDS: Zinc Sulfate 50 mg zinc (220 mg) ORAL capsule PO (08:11)
[2024-01-10] MEDS: Senna/Docusate Sodium 1 Tablet 2 TABLET PO ×2 (08:11→21:08)
[2024-01-10] MEDS: Hydroxychloroquine 200 MG Tablet PO (08:14)
[2024-01-10] MEDS: Glycerin/Hypromellose/PEG400 15 ml Bottle EACH EYE ×2 (08:25→21:09)
[2024-01-10] MEDS: Menthol/Lanolin/Calamine/Znox 113 GM Tube 1 APPLIC TOPICAL ×2 (08:30→21:10)
[2024-01-10 15:47] VITALS: BP 120/58; PULSE 81; RESP 14; TEMP 36.9; O2SAT 94
--- NOTE | 2024-01-10 20:38 | NURSING ---
Pt. c/o indigestion. Dr. Gaona updated via telephone. New order Tums 500mg PO q4H PRN. Order repeated back.
[2024-01-10] MEDS: BMX LIQUID 180 ML 10 ML PO (21:06)
[2024-01-10] MEDS: Magnesium Chloride 64 MG Delay Rel.Tablet PO (21:06)
[2024-01-10] MEDS: MELATONIN 3 MG TABLET PO (21:08)
[2024-01-11] MEDS: Pregabalin 25 MG Capsule PO ×3 (00:05→21:14)
[2024-01-11] MEDS: oxyCODONE 5 MG Tablet PO ×5 (00:05→17:34)
[2024-01-11] MEDS: Pramipexole Di-HCl 0.125 MG Tablet PO ×3 (00:06→21:14)
[2024-01-11] MEDS: Acetaminophen 500 MG Tablet 1000 MG PO ×3 (05:24→21:14)
[2024-01-11] MEDS: Pilocarpine HCl 5 MG Tablet 2.5 MG PO ×3 (05:24→21:14)
[2024-01-11] MEDS: Multivitamin (Healthy Eyes) Capsule 1 CAP PO (09:40)
[2024-01-11] MEDS: Multivitamins,Therapeutic Tablet 1 TABLET PO (09:41)
[2024-01-11] MEDS: Hydroxychloroquine 200 MG Tablet PO (09:41)
[2024-01-11] MEDS: Vitamin B Comp W-C Capsule 1 CAP PO (09:41)
[2024-01-11] MEDS: Fluticasone 0.05% 1 SPRAY NASAL.SRY 2 SPRAY NASAL (09:41)
[2024-01-11] MEDS: Iron Polysaccharide Complex 150 MG CAPSULE PO (09:41)
[2024-01-11] MEDS: APIXABAN 2.5 MG TABLET (WCH) PO ×2 (09:41→21:14)
[2024-01-11] MEDS: Calcium Carb/Vitamin D 1 TABLET Tablet 2 TABLET PO ×2 (09:42→21:14)
[2024-01-11] MEDS: Pantoprazole Sodium 40 MG Tablet PO ×2 (09:42→21:14)
[2024-01-11] MEDS: Atorvastatin Calcium 10 MG Tablet 5 MG PO (09:42)
[2024-01-11] MEDS: Senna/Docusate Sodium 1 Tablet 2 TABLET PO ×2 (09:43→21:14)
[2024-01-11] MEDS: Zinc Sulfate 50 mg zinc (220 mg) ORAL capsule PO (09:43)
[2024-01-11] MEDS: Menthol/Lanolin/Calamine/Znox 113 GM Tube 1 APPLIC TOPICAL ×2 (09:47→21:18)
[2024-01-11 15:57] VITALS: BP 134/67; PULSE 77; RESP 16; TEMP 36.4; O2SAT 95
[2024-01-11] MEDS: MELATONIN 3 MG TABLET PO (21:13)
[2024-01-11] MEDS: Magnesium Chloride 64 MG Delay Rel.Tablet PO (21:14)
[2024-01-11] MEDS: Glycerin/Hypromellose/PEG400 15 ml Bottle EACH EYE (21:21)
[2024-01-11 21:30] VITALS: PULSE 80; RESP 16; O2SAT 98
[2024-01-12] MEDS: Pramipexole Di-HCl 0.125 MG Tablet PO ×3 (00:39→20:57)
[2024-01-12] MEDS: oxyCODONE 5 MG Tablet PO ×4 (00:39→18:00)
[2024-01-12] MEDS: Pregabalin 25 MG Capsule PO ×3 (00:39→20:54)
[2024-01-12] MEDS: BMX LIQUID 180 ML 10 ML PO (00:41)
[2024-01-12] MEDS: Calcium Carbonate 500 MG Tablet PO ×2 (00:44→20:57)
[2024-01-12] MEDS: Pilocarpine HCl 5 MG Tablet 2.5 MG PO ×3 (05:50→20:58)
[2024-01-12] MEDS: Acetaminophen 500 MG Tablet 1000 MG PO ×3 (05:50→20:59)
[2024-01-12 05:55] VITALS: PULSE 87; RESP 16; O2SAT 94
[2024-01-12 08:50] VITALS: BP 116/54; PULSE 86; RESP 16; TEMP 36.8; O2SAT 95
[2024-01-12] MEDS: Pantoprazole Sodium 40 MG Tablet PO ×2 (08:55→20:59)
[2024-01-12] MEDS: Senna/Docusate Sodium 1 Tablet 2 TABLET PO ×2 (08:55→20:59)
[2024-01-12] MEDS: Multivitamins,Therapeutic Tablet 1 TABLET PO (08:55)
[2024-01-12] MEDS: Vitamin B Comp W-C Capsule 1 CAP PO (08:55)
[2024-01-12] MEDS: Multivitamin (Healthy Eyes) Capsule 1 CAP PO (08:55)
[2024-01-12] MEDS: Hydroxychloroquine 200 MG Tablet PO (08:55)
[2024-01-12] MEDS: Venlafaxine XR 75 MG Capsule PO (08:55)
[2024-01-12] MEDS: Zinc Sulfate 50 mg zinc (220 mg) ORAL capsule PO (08:55)
[2024-01-12] MEDS: Calcium Carb/Vitamin D 1 TABLET Tablet 2 TABLET PO ×2 (08:55→21:00)
[2024-01-12] MEDS: Iron Polysaccharide Complex 150 MG CAPSULE PO (08:56)
[2024-01-12] MEDS: Fluticasone 0.05% 1 SPRAY NASAL.SRY 2 SPRAY NASAL (08:56)
[2024-01-12] MEDS: Menthol/Lanolin/Calamine/Znox 113 GM Tube 1 APPLIC TOPICAL ×2 (09:00→21:04)
[2024-01-12] MEDS: APIXABAN 2.5 MG TABLET (WCH) PO ×2 (10:07→20:58)
[2024-01-12 13:50] VITALS: BMI 22.4
[2024-01-12] MEDS: Glycerin/Hypromellose/PEG400 15 ml Bottle EACH EYE ×2 (17:19→21:03)
[2024-01-12] MEDS: MELATONIN 3 MG TABLET PO (20:58)
[2024-01-12] MEDS: Magnesium Chloride 64 MG Delay Rel.Tablet PO (20:59)
[2024-01-13] MEDS: Pramipexole Di-HCl 0.125 MG Tablet PO ×3 (00:20→21:17)
[2024-01-13] MEDS: Pregabalin 25 MG Capsule PO ×3 (00:21→21:11)
[2024-01-13] MEDS: oxyCODONE 5 MG Tablet PO ×4 (00:21→18:07)
[2024-01-13] MEDS: BMX LIQUID 180 ML 10 ML PO (05:47)
[2024-01-13] MEDS: Calcium Carbonate 500 MG Tablet PO ×2 (05:47→10:32)
[2024-01-13] MEDS: Pilocarpine HCl 5 MG Tablet 2.5 MG PO ×3 (05:47→21:12)
[2024-01-13] MEDS: Acetaminophen 500 MG Tablet 1000 MG PO ×3 (05:48→21:12)
[2024-01-13 06:00] VITALS: PULSE 92; RESP 16; O2SAT 96
[2024-01-13] MEDS: Pantoprazole Sodium 40 MG Tablet PO ×2 (07:44→21:12)
--- NOTE | 2024-01-13 07:49 | EKG12_ITS ---
Test Reason : CP Blood Pressure : / mmHG Vent. Rate : 076 BPM Atrial Rate : 076 BPM P-R Int : 112 ms QRS Dur : 088 ms QT Int : 380 ms P-R-T Axes : 045 -51 028 degrees QTc Int : 427 ms Normal sinus rhythm Left anterior fascicular block Abnormal ECG When compared with ECG of 22-DEC-2023 13:31, No significant change was found Confirmed by MAURO SOTO, RIGO ([id number]), continuity editor MARCY ORTEGA ([id number]) on 01/13/2024 1:12:47 PM Referred By: Leatha Kincaid Confirmed By:RIGO WADE MD
[2024-01-13] MEDS: Vitamin B Comp W-C Capsule 1 CAP PO (10:23)
[2024-01-13] MEDS: Multivitamin (Healthy Eyes) Capsule 1 CAP PO (10:23)
[2024-01-13] MEDS: Calcium Carb/Vitamin D 1 TABLET Tablet 2 TABLET PO ×2 (10:23→21:11)
[2024-01-13] MEDS: Hydroxychloroquine 200 MG Tablet PO (10:24)
[2024-01-13] MEDS: APIXABAN 2.5 MG TABLET (WCH) PO ×2 (10:24→21:11)
[2024-01-13] MEDS: Multivitamins,Therapeutic Tablet 1 TABLET PO (10:24)
[2024-01-13] MEDS: Venlafaxine XR 75 MG Capsule PO (10:24)
[2024-01-13] MEDS: Iron Polysaccharide Complex 150 MG CAPSULE PO (10:29)
[2024-01-13] MEDS: Fluticasone 0.05% 1 SPRAY NASAL.SRY 2 SPRAY NASAL (10:29)
[2024-01-13] MEDS: Glycerin/Hypromellose/PEG400 15 ml Bottle EACH EYE (10:30)
[2024-01-13] MEDS: Senna/Docusate Sodium 1 Tablet 2 TABLET PO ×2 (10:31→21:11)
[2024-01-13] MEDS: Polyethylene Glycol 3350 17 GM PACKET PO (10:31)
[2024-01-13] MEDS: Atorvastatin Calcium 10 MG Tablet 5 MG PO (10:31)
[2024-01-13] MEDS: Zinc Sulfate 50 mg zinc (220 mg) ORAL capsule PO (10:32)
[2024-01-13] MEDS: Menthol/Lanolin/Calamine/Znox 113 GM Tube 1 APPLIC TOPICAL ×2 (10:37→21:18)
--- NOTE | 2024-01-13 10:51 | NURSING ---
C/O pain under right breast that radiates up neck and into cheek this AM. Patient feels it is indigestion and feels she needs to burp. AM routine Protonix administered and tuan-benjamin provided. Patient agreeable to receiving an EKG to rule out heart issues. BP and HR WNL. EKG shows sinus rhythm. Patient reports relief after tuan-benjamin and breakfast.
[2024-01-13 16:00] VITALS: BP 132/63; PULSE 77; RESP 16; TEMP 36.7; O2SAT 93
[2024-01-13] MEDS: MELATONIN 3 MG TABLET PO (21:13)
[2024-01-13] MEDS: Magnesium Chloride 64 MG Delay Rel.Tablet PO (21:13)
[2024-01-14] MEDS: Pregabalin 25 MG Capsule PO ×3 (00:17→21:07)
[2024-01-14] MEDS: Pramipexole Di-HCl 0.125 MG Tablet PO ×3 (00:17→21:07)
[2024-01-14] MEDS: oxyCODONE 5 MG Tablet PO ×4 (00:20→18:16)
[2024-01-14] MEDS: Glycerin/Hypromellose/PEG400 15 ml Bottle EACH EYE ×3 (00:21→21:07)
[2024-01-14] MEDS: Acetaminophen 500 MG Tablet 1000 MG PO ×3 (06:03→21:08)
[2024-01-14] MEDS: Pilocarpine HCl 5 MG Tablet 2.5 MG PO ×3 (06:03→21:08)
[2024-01-14 08:41] VITALS: BP 131/51; PULSE 85; RESP 18; TEMP 36.8; O2SAT 94
[2024-01-14] MEDS: Calcium Carbonate 500 MG Tablet PO (08:43)
[2024-01-14] MEDS: Polyethylene Glycol 3350 17 GM PACKET PO (08:44)
[2024-01-14] MEDS: Venlafaxine XR 75 MG Capsule PO (08:44)
[2024-01-14] MEDS: Senna/Docusate Sodium 1 Tablet 2 TABLET PO ×2 (08:44→21:08)
[2024-01-14] MEDS: Calcium Carb/Vitamin D 1 TABLET Tablet 2 TABLET PO ×2 (08:44→21:09)
[2024-01-14] MEDS: Iron Polysaccharide Complex 150 MG CAPSULE PO (08:44)
[2024-01-14] MEDS: Zinc Sulfate 50 mg zinc (220 mg) ORAL capsule PO (08:45)
[2024-01-14] MEDS: Multivitamins,Therapeutic Tablet 1 TABLET PO (08:45)
[2024-01-14] MEDS: Vitamin B Comp W-C Capsule 1 CAP PO (08:45)
[2024-01-14] MEDS: Multivitamin (Healthy Eyes) Capsule 1 CAP PO (08:45)
[2024-01-14] MEDS: Hydroxychloroquine 200 MG Tablet PO (08:45)
[2024-01-14] MEDS: Pantoprazole Sodium 40 MG Tablet PO ×2 (08:45→21:09)
[2024-01-14] MEDS: APIXABAN 2.5 MG TABLET (WCH) PO ×2 (08:46→21:08)
[2024-01-14] MEDS: Menthol/Lanolin/Calamine/Znox 113 GM Tube 1 APPLIC TOPICAL ×2 (08:50→21:09)
[2024-01-14] MEDS: Fluticasone 0.05% 1 SPRAY NASAL.SRY 2 SPRAY NASAL (08:53)
--- NOTE | 2024-01-14 10:39 | CASEMGMT ---
Addendum entered by Marisol Machado 01/14/24 12:01: SW received update from [facility] that the patient only wants pediatric walker ordered after practicing rollator with therapy. SW updated script and placed in Physician folder for signature. Discharge: Home with home health care; [facility] pediatric front wheeled walker 01/20/2024 RITCHIE Agustin Addendum entered by Marisol Machado 01/14/24 11:20: RITCHIE Agustin Original Note: Social Work Social Work met with patient at bedside to discuss discharge. Patient informed SW that she has discussed discharge with a friend. Patient informed SW that her friend, Michelle will be available to transport on Thursday, 01/19. Patient informed SW that she has been in contact with [facility] [employer], home health care is covered. SW discussed Medicare coverage and benefits for home health care services with the patient. Patient has a cart on [employer] with equipment. Patient requested staff to review DME in [employer]. SW reviewed list and requested that OT also review list with patient. Patient inquired about ordering a walker and rollator. Patient informed SW that she would like pay for walker private pay and order rollator through insurance. SW discussed recommendation with therapy. Patient will require pediatric size walker and rollator. SW provided script to physician. Patient was provided patient with printed Home health care list in preferred geographic are, insurance network, and medical needs via careport guide. SW discussed home health care services with patient. Patient informed SW that she would like home health care services PT/OT/ST.
[2024-01-14 16:00] VITALS: PULSE 84; RESP 18
--- NOTE | 2024-01-14 19:44 | PCM.DC.SUM ---
Providers Date of Admission: 12/25/23 Primary Care Physician: Dr. Leatha Kincaid MD Consultations 01/06/24 09:33 Consult: Gastroenterology Routine Consulting Provider: [facility] Reason for Consult: Esophagus retention EMERGENT Consult: No MD Notified: Yes Date Notified: 01/06/24 Time Notified: 09:35 Method of Notification: Text Reason For Visit: LEFT HIP FRACTURE Diagnosis Discharge Diagnosis (1) Dysphagia: Status: Acute Code(s): R13.10 - Dysphagia, unspecified Plan 88 year old female with below past medical history hospitalized for left hip fracture, underwent left hip hemiarthroplasty 12/23/[address] Pineda, admitted to TCU with debility, here for rehabilitation, strengthening, prior to discharge home alone. Debility - PT/OT. Pain - Tylenol 1000mg q8, Oxycodone 5mg q4 prn pain (4-10). Bowel - senna/colace 2 tablets bid, Magnesium citrate 300ml daily prn. Adult immunization - Administer pneumonia vaccine, covid vaccine, flu vaccine as appropriate. DVT prophylaxis - Eliquis 2.5mg bid thru 01/27/2024. TIA - Aspirin 81mg starting 01/28/2024. Hyperlipidemia - Atorvastatin 5mg every other day. Calcium deficiency - Calcium D 2 tablets bid. Allergic rhinitis - Flonase nasal spray 1 spray daily. 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 Hypomagnesemia - Magnesium chloride 64mg qhs. Insomnia - Melatonin 3mg qhs. Nutrition - MVI 1 tablet daily. Dry eyes - Artificial tears 1-2gtt ou q2h prn. Dry mouth - Pilocarpine 2.5mg tid. Restless Leg syndrome - Mirapex 0.125mg bid. Fibromyalgia - Lyrica 25mg tid. 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 Leg cramps - Vitamin B complex 1 capsule daily. Zinc deficiency - Zinc 50mg daily. Medications at Discharge Home Medications aspirin 81 mg tablet,delayed release 81 mg PO DINNER heart health 03/29/16 atorvastatin 10 mg tablet 5 mg PO QODAY cholesterol 03/29/16 calcium citrate 315 mg-vitamin D3 5 mcg (200 unit) tablet 2 tab PO BID supplement 03/29/16 cyclosporine 0.05 % eye drops in a dropperette (Restasis) 1 drp EACH EYE BID eye 03/29/16 flaxseed oil 1,000 mg capsule 1,000 mg PO DAILY supplement 03/29/16 hydroxychloroquine 200 mg tablet 200 mg PO DAILYCM arthritis 03/29/16 melatonin 3 mg tablet 3 mg PO QHS sleep 03/29/16 pilocarpine HCl 5 mg tablet 2.5 mg PO TID bp 03/29/16 pramipexole 0.125 mg tablet (Mirapex) 0.125 mg PO .1900, 2200 restless legs 03/29/16 fluticasone propionate 50 mcg/actuation nasal spray,suspension 2 spry NASAL DAILY allergies 09/27/18 magnesium oxide 400 mg PO QHS supplement 09/27/18 multivitamin 1 tab PO DAILY vitamin 09/27/18 venlafaxine 150 mg capsule,extended release 24 hr 75 mg PO DAILY anxiety 09/27/18 vitamin B complex 1 tab PO DAILY vitamin 09/27/18 white petrolatum-mineral oil 94 %-3 % eye ointment (Systane Nighttime) 3.5 g OP DAILY dry eye 09/27/18 pregabalin 25 mg capsule (Lyrica) 25 mg PO TID neuropathy 08/16/21 zinc 50 mg tablet 50 mg PO DAILY supplement 10/31/21 albuterol sulfate 90 mcg/actuation aerosol inhaler (Ventolin HFA) 2 puff inhalation Q4H PRN shortness of breath or wheezing #8.5 grams 02/03/23 lubiprostone 24 mcg capsule (Amitiza) 24 mcg PO DAILY Constipation #30 caps 01/13/24 acetaminophen 500 mg tablet 1,000 mg (2 x 500 mg) PO Q8 #0 tabs 01/14/24 apixaban 5 mg tablet (Eliquis) 2.5 mg (1/2 x 5 mg) PO BID 7 days #7 tabs 01/14/24 calcium carbonate 500 mg (2.5 x 200 mg calcium (500 mg)) PO Q4H PRN PRN Indigestion #0 tabs 01/14/24 lidocaine HCl 2 % mucosal solution (Lidocaine Viscous) 10 ml PO Q3H PRN PRN MOUTH IRRITATION 10 days #300 mL 01/14/24 oxycodone 5 mg tablet 5 mg PO Q4H PRN PRN Pain Score 4-10 Or Pre Pt/Ot 7 days #42 tabs 01/14/24 pantoprazole 40 mg tablet,delayed release 40 mg PO BID 30 days #60 tabs 01/14/24 polysaccharide iron complex 150 mg iron capsule (Ferrex) 150 mg PO DAILY 30 days #30 caps 01/14/24 sennosides 8.6 mg-docusate sodium 50 mg tablet (Stool Softener-Stimulant Laxative) 2 tab PO BID 30 days #120 tabs 01/14/24 vit A 300 mcg-C 200 mg-E 27 mg-lutein 2 mg and minerals tablet (Healthy Eyes) 1 tab PO DAILYCM #0 tabs 01/14/24 Hospital Course Operations None Procedures EGD Summary of Care Provided Minutes Spent on Discharge: 35 Hospital Course: 88 year old female with below past medical history hospitalized for left hip fracture, underwent left hip hemiarthroplasty 12/23/[address] Pineda, admitted to TCU with debility, here for rehabilitation, strengthening, prior to discharge home alone. 01/07/2024 Dr. Hoyt EGD: Impressions : - Abnormal esophageal motility, established esophageal spasm. Injected with botulinum toxin. Dilated. 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 - Small hiatal hernia. - Multiple gastric polyps. - Normal duodenal bulb. - Biopsies were taken with a cold forceps for evaluation of eosinophilic esophagitis. Discharge home alone 01/20/2024, [facility] PT/OT/ST, [facility] pediatric FWW. FWW: Patient is unable to use a cane and requires a walker for ambulation in the home and the community. Physical Exam Const alert General Appearance: cooperative HEENT normocephalic Eyes PERRL and EOMs intact bilaterally Neck supple, no JVD and no carotid bruits Resp normal respiratory effort, normal air movement and clear to auscultation bilaterally Cardio regular rate and regular rhythm GI normal to inspection, nondistended, normoactive bowel sounds, non-tender and non-distended Extremity normal capillary refill General Extremity: Negative for edema Skin no rashes or lesions noted General Skin Exam: no breakdown Psych affect normal Appearance: appropriate Weight / BMI Weight Weight: 48.444 kg Body Mass Index (BMI) 22.4 ABG / Lab / Microbiology Data 01/08/24 05:45 01/08/24 05:45 D/C Instructions Discharge Diet: No restrictions Discharge Activity: Return to Normal Activity, May Shower and Use Walker Weight Bearing Status: Weight bearing as tolerated Call your doctor if you observe: Fever of 101 or Higher, Inability to urinate, Inability to have a bowel movement, Shortness of breath, Dizziness, Fainting spells, Swelling in the ankles, Chest pain and Uncontrolled pain Additional Instructions: Discharge home alone 01/20/2024, [facility] PT/OT/ST, [facility] pediatric FWW. FWW: Patient is unable to use a cane and requires a walker for ambulation in the home and the community. Please Follow Up With: Haroon Pineda, DO When: As scheduled. Meaningful Use Info Meaningful Use Meaningful Use Diagnoses (Choose all that apply): None applicable Ischemic Stroke Statin Dosing Therapy Reference: STATIN DOSE THERAPY REFERENCE: * Patients > 75 years receive moderate or high dose statin therapy. * Patients 75 years or YOUNGER should receive HIGH intensity statin dose unless contraindicated. You will be required to document reason for non-treatment if statin daily dose does not meet guidelines. HIGH DOSE STATIN THERAPY DAILY Atorvastatin > than or = to 40 mg Rosuvastatin > than or = to 20 mg Amlodipine + Atorvastatin > than or = to 2.5/40 mg Ezetimibe + Simvastatin 10/80 mg Simvastatin 80mg Discharge Plan Admission Admit Date/Time: 12/25/23 14:38 Primary Reason for Your Visit: Debility. Attending Provider: Paulino Gaona Chi Primary Care Provider: Leatha Kincaid Instructions Additional Instructions / Restrictions: Discharge home alone 01/20/2024, [facility] PT/OT/ST, [facility] pediatric FWW. FWW: Patient is unable to use a cane and requires a walker for ambulation in the home and the community. Discharge Orders/Prescriptions Prescriptions: New acetaminophen 500 mg Tablet 1,000 mg PO Q8 Qty: 0 0RF Eliquis 5 mg Tablet 2.5 mg PO BID 7 Days Qty: 7 0RF polysaccharide iron complex [Ferrex 150] 150 mg iron Capsule 150 mg PO DAILY 30 Days Qty: 30 0RF sennosides-docusate sodium [Stool Softener-Stimulant Laxat] 8.6-50 mg Tablet 2 tab PO BID 30 Days Qty: 120 0RF pantoprazole 40 mg Tablet,Delayed Release (Dr/Ec) 40 mg PO BID 30 Days Qty: 60 0RF calcium carbonate 200 mg calcium (500 mg) Tablet,Chewable 500 mg PO Q4H PRN PRN (Reason: Indigestion) Qty: 0 0RF lidocaine HCl [Lidocaine Viscous] 2 % Solution 10 ml PO Q3H PRN PRN (Reason: MOUTH IRRITATION) 10 Days Qty: 300 0RF oxycodone 5 mg Tablet 5 mg PO Q4H PRN PRN (Reason: Pain Score 4-10 Or Pre Pt/Ot) 7 Days Qty: 42 0RF Healthy Eyes 300 mcg-200 mg-27 mg-2 mg Tablet 1 tab PO DAILYCM Qty: 0 0RF Continued albuterol sulfate [Ventolin HFA] 90 mcg/actuation HFA aerosol inhaler 2 puff inhalation Q4H PRN (Reason: shortness of breath or wheezing) Qty: 8.5 6RF pilocarpine HCl 5 MG tablet 2.5 mg PO TID Patient Comments: eye drops atorvastatin 10 MG tablet 5 mg PO QODAY Patient Comments: cholesterol melatonin 3 MG tablet 3 mg PO QHS Patient Comments: sleep aid aspirin 81 MG tablet,delayed release (DR/EC) 81 mg PO DINNER Patient Comments: Arantech flaxseed oil 1,000 MG capsule 1,000 mg PO DAILY Patient Comments: Trefish pramipexole [Mirapex] 0.125 MG tablet 0.125 mg PO .1900, 2200 Patient Comments: PT TAKES 0.125 AT LUNCH AND OTHER 0.125 @ 2000 hydroxychloroquine 200 MG tablet 200 mg PO DAILYCM Patient Comments: arthritis cyclosporine [Restasis] 1 DROP dropperette 1 drp EACH EYE BID Patient Comments: tears calcium citrate-vitamin D3 1 EACH tablet 2 tab PO BID Patient Comments: calcium with vitamin D Rx Instructions: with breakfast and lunch fluticasone propionate 16 GM spray,suspension 2 spry NASAL DAILY Patient Comments: USE 2 SPRAYS IN EACH NOSTRIL ONCE DAILY. RINSE MOUTH AFTER USE. magnesium oxide 250 MG tablet 400 mg PO QHS multivitamin 1 EACH tablet 1 tab PO DAILY venlafaxine 150 MG capsule,extended release 24hr 75 mg PO DAILY Patient Comments: TAKE 1 CAPSULE BY MOUTH EVERY DAY vitamin B complex 1 EACH tablet 1 tab PO DAILY Systane Nighttime 3.5 GM ointment 3.5 g OP DAILY pregabalin [Lyrica] 25 mg Capsule 25 mg PO TID Patient Comments: take at 6pm, 9pm and 12am zinc 50 mg Tablet 50 mg PO DAILY lubiprostone [Amitiza] 24 mcg capsule 24 mcg PO DAILY Qty: 30 3RF Discontinued oxycodone-acetaminophen [Percocet] 1 TABLET tablet 0.5 tab PO BID Patient Comments: pain acetaminophen 325 mg Tablet 650 mg PO Q4H PRN PRN (Reason: Fever, pain 1-06/16) Qty: 0 0RF sennosides-docusate sodium [Stool Softener-Stimulant Laxat] 8.6-50 mg Tablet 2 tab PO BID Qty: 0 0RF magnesium hydroxide 400 mg/5 mL Suspension 30 ml PO DAILY PRN PRN (Reason: Constipation) Qty: 0 0RF oxycodone 5 mg Tablet 5 mg PO Q4H PRN PRN (Reason: PAIN 4-6) Qty: 0 0RF Eliquis 5 mg Tablet 2.5 mg PO BID 30 Days Qty: 30 0RF Referrals / Follow Up: Leatha Kincaid MD [Primary Care Provider] - Haroon Pnieda DO [Med Staff - Active Staff] - 02/03/24 3:30 pm Disposition Disposition (needs filled in before D/C Order can be placed): Home Health Service
[2024-01-14] MEDS: MELATONIN 3 MG TABLET PO (21:08)
[2024-01-14] MEDS: Magnesium Chloride 64 MG Delay Rel.Tablet PO (21:09)
[2024-01-14] MEDS: BMX LIQUID 180 ML 10 ML PO (21:15)
[2024-01-15] MEDS: Pramipexole Di-HCl 0.125 MG Tablet PO ×3 (00:02→22:32)
[2024-01-15] MEDS: oxyCODONE 5 MG Tablet PO ×5 (00:03→22:32)
[2024-01-15] MEDS: Pregabalin 25 MG Capsule PO ×3 (00:03→22:32)
[2024-01-15] MEDS: Acetaminophen 500 MG Tablet 1000 MG PO ×3 (05:32→22:36)
[2024-01-15] MEDS: Pilocarpine HCl 5 MG Tablet 2.5 MG PO ×3 (05:32→22:35)
[2024-01-15 05:35] VITALS: RESP 16
[2024-01-15 08:16] VITALS: BP 114/58; PULSE 76; RESP 16; TEMP 37.1; O2SAT 96
[2024-01-15] MEDS: Polyethylene Glycol 3350 17 GM PACKET PO (08:20)
[2024-01-15] MEDS: APIXABAN 2.5 MG TABLET (WCH) PO ×2 (08:21→22:34)
[2024-01-15] MEDS: Multivitamin (Healthy Eyes) Capsule 1 CAP PO (08:21)
[2024-01-15] MEDS: Vitamin B Comp W-C Capsule 1 CAP PO (08:21)
[2024-01-15] MEDS: Multivitamins,Therapeutic Tablet 1 TABLET PO (08:21)
[2024-01-15] MEDS: Pantoprazole Sodium 40 MG Tablet PO ×2 (08:21→22:35)
[2024-01-15] MEDS: Venlafaxine XR 75 MG Capsule PO (08:21)
[2024-01-15] MEDS: Atorvastatin Calcium 10 MG Tablet 5 MG PO (08:21)
[2024-01-15] MEDS: Iron Polysaccharide Complex 150 MG CAPSULE PO (08:21)
[2024-01-15] MEDS: Hydroxychloroquine 200 MG Tablet PO (08:21)
[2024-01-15] MEDS: Senna/Docusate Sodium 1 Tablet 2 TABLET PO ×2 (08:22→22:36)
[2024-01-15] MEDS: Zinc Sulfate 50 mg zinc (220 mg) ORAL capsule PO (08:22)
[2024-01-15] MEDS: Calcium Carb/Vitamin D 1 TABLET Tablet 2 TABLET PO ×2 (08:22→22:35)
[2024-01-15] MEDS: Menthol/Lanolin/Calamine/Znox 113 GM Tube 1 APPLIC TOPICAL ×2 (08:30→22:38)
[2024-01-15] MEDS: Fluticasone 0.05% 1 SPRAY NASAL.SRY 2 SPRAY NASAL (08:30)
[2024-01-15] MEDS: Glycerin/Hypromellose/PEG400 15 ml Bottle EACH EYE ×2 (08:30→22:37)
[2024-01-15 08:35] LABS: Absolute Lymphocyte Count 1.59 X10^3/uL (0.83-4.51); Absolute Neutrophil Count 4.6 X10^3/uL (2.0-7.7); Basophil# 0.04 X10^3/uL; Basophil% 0.5 % (0-1); Eosinophil# 0.38 X10^3/uL; Eosinophils% 5.2 % (0-5); Hematocrit 38.2 % (37-47); Hemoglobin 11.8 g/dL (12.0-15.0); Lymphocyte # 1.59 X10^3/ul (0.83-4.51); Lymphocyte % 21.6 % (19-41); Mean Corp Hgb Conc 30.9 g/dL (32-36); Mean Corpuscular Hgb 27.2 pg (27.0-32.0); Mean Platelet Vol. 9.4 fl (6.2-12.0); Monocyte# 0.73 X10^3/uL; Monocyte% 9.9 % (0-10); NRBC Flagged by Analyzer 0 % (0-5); Neutrophil % 62.5 % (47-70); Platelet Count 540 K/mm3 (150-450); RBC Distribution Width CV 15.2 % (11.6-14.6); RBC Distribution Width SD 48.6 fl (35.1-43.9); Red Blood Count 4.34 M/mm3 (4.2-5.4); White Blood Count 7.4 K/mm3 (4.4-11.0)
[2024-01-15 09:03] LABS: Anion Gap 4 (5-15); BUN 12 mg/dL (7-18); BUN/Creat Ratio 18.7 RATIO (10-20); Calcium,Total 9.8 mg/dL (8.5-10.1); Chloride 102 mmol/L (98-107); Creatinine, Serum 0.64 mg/dL (0.55-1.02); EST Glomerular Filtration Rate 93 mL/min (>60); Est Glom Filt Rate - Afr Amer 112 mL/min (>60); Estimated Creatinine Clearance 34.91 ml/min; Glucose 88 mg/dL (74-106); Potassium 4.2 mmol/L (3.5-5.1); Sodium Level 137 mmol/L (136-145)
[2024-01-15] MEDS: Magnesium Chloride 64 MG Delay Rel.Tablet PO (22:34)
[2024-01-15] MEDS: MELATONIN 3 MG TABLET PO (22:37)
[2024-01-15] MEDS: BMX LIQUID 180 ML 10 ML PO (22:37)
[2024-01-16] MEDS: Pregabalin 25 MG Capsule PO ×3 (01:02→21:35)
[2024-01-16] MEDS: Pramipexole Di-HCl 0.125 MG Tablet PO ×3 (01:02→21:35)
[2024-01-16] MEDS: Acetaminophen 500 MG Tablet 1000 MG PO ×3 (05:09→21:37)
[2024-01-16] MEDS: oxyCODONE 5 MG Tablet PO ×3 (05:09→20:03)
[2024-01-16] MEDS: Pilocarpine HCl 5 MG Tablet 2.5 MG PO ×3 (05:09→21:36)
[2024-01-16 05:16] VITALS: RESP 16
[2024-01-16] MEDS: Multivitamin (Healthy Eyes) Capsule 1 CAP PO (09:13)
[2024-01-16] MEDS: Multivitamins,Therapeutic Tablet 1 TABLET PO (09:14)
[2024-01-16] MEDS: Vitamin B Comp W-C Capsule 1 CAP PO (09:15)
[2024-01-16] MEDS: Venlafaxine XR 75 MG Capsule PO (09:15)
[2024-01-16] MEDS: Hydroxychloroquine 200 MG Tablet PO (09:15)
[2024-01-16] MEDS: Fluticasone 0.05% 1 SPRAY NASAL.SRY 2 SPRAY NASAL (09:16)
[2024-01-16] MEDS: Calcium Carb/Vitamin D 1 TABLET Tablet 2 TABLET PO ×2 (09:16→21:37)
[2024-01-16] MEDS: APIXABAN 2.5 MG TABLET (WCH) PO ×2 (09:16→21:37)
[2024-01-16] MEDS: Iron Polysaccharide Complex 150 MG CAPSULE PO (09:16)
[2024-01-16] MEDS: Pantoprazole Sodium 40 MG Tablet PO ×2 (09:17→21:38)
[2024-01-16] MEDS: Zinc Sulfate 50 mg zinc (220 mg) ORAL capsule PO (09:17)
[2024-01-16] MEDS: Senna/Docusate Sodium 1 Tablet 2 TABLET PO ×2 (09:18→21:38)
[2024-01-16] MEDS: Glycerin/Hypromellose/PEG400 15 ml Bottle EACH EYE ×2 (09:21→21:43)
[2024-01-16] MEDS: Menthol/Lanolin/Calamine/Znox 113 GM Tube 1 APPLIC TOPICAL ×2 (13:56→21:39)
[2024-01-16 14:39] VITALS: BP 115/53; PULSE 85; RESP 16; TEMP 36.3; O2SAT 94
[2024-01-16] MEDS: Magnesium Chloride 64 MG Delay Rel.Tablet PO (21:36)
[2024-01-16] MEDS: MELATONIN 3 MG TABLET PO (21:37)
[2024-01-17] MEDS: Pregabalin 25 MG Capsule PO ×3 (00:17→21:26)
[2024-01-17] MEDS: Pramipexole Di-HCl 0.125 MG Tablet PO ×3 (00:17→21:28)
[2024-01-17] MEDS: oxyCODONE 5 MG Tablet PO ×5 (00:17→19:03)
[2024-01-17] MEDS: BMX LIQUID 180 ML 10 ML PO (00:21)
[2024-01-17] MEDS: Acetaminophen 500 MG Tablet 1000 MG PO ×3 (05:27→21:32)
[2024-01-17] MEDS: Pilocarpine HCl 5 MG Tablet 2.5 MG PO ×3 (05:28→21:32)
[2024-01-17 08:56] VITALS: BP 107/44; PULSE 79; RESP 16; TEMP 36.4; O2SAT 96
[2024-01-17 08:58] VITALS: BP 115/50
[2024-01-17] MEDS: Senna/Docusate Sodium 1 Tablet 2 TABLET PO ×2 (09:02→21:33)
[2024-01-17] MEDS: Pantoprazole Sodium 40 MG Tablet PO ×2 (09:02→21:34)
[2024-01-17] MEDS: Calcium Carb/Vitamin D 1 TABLET Tablet 2 TABLET PO ×2 (09:02→21:34)
[2024-01-17] MEDS: Zinc Sulfate 50 mg zinc (220 mg) ORAL capsule PO (09:02)
[2024-01-17] MEDS: Hydroxychloroquine 200 MG Tablet PO (09:03)
[2024-01-17] MEDS: Vitamin B Comp W-C Capsule 1 CAP PO (09:03)
[2024-01-17] MEDS: Iron Polysaccharide Complex 150 MG CAPSULE PO (09:03)
[2024-01-17] MEDS: Atorvastatin Calcium 10 MG Tablet 5 MG PO (09:03)
[2024-01-17] MEDS: Venlafaxine XR 75 MG Capsule PO (09:03)
[2024-01-17] MEDS: Multivitamins,Therapeutic Tablet 1 TABLET PO (09:03)
[2024-01-17] MEDS: Menthol/Lanolin/Calamine/Znox 113 GM Tube 1 APPLIC TOPICAL ×2 (09:03→21:35)
[2024-01-17] MEDS: Multivitamin (Healthy Eyes) Capsule 1 CAP PO (09:03)
[2024-01-17] MEDS: APIXABAN 2.5 MG TABLET (WCH) PO ×2 (09:03→21:33)
[2024-01-17] MEDS: Fluticasone 0.05% 1 SPRAY NASAL.SRY 2 SPRAY NASAL (09:04)
[2024-01-17] MEDS: Glycerin/Hypromellose/PEG400 15 ml Bottle EACH EYE (09:06)
[2024-01-17] MEDS: MELATONIN 3 MG TABLET PO (21:33)
[2024-01-17] MEDS: Magnesium Chloride 64 MG Delay Rel.Tablet PO (21:34)
[2024-01-17 22:00] VITALS: RESP 16
[2024-01-18] MEDS: Pregabalin 25 MG Capsule PO ×3 (00:10→21:08)
[2024-01-18] MEDS: oxyCODONE 5 MG Tablet PO ×4 (00:10→17:54)
[2024-01-18] MEDS: Pramipexole Di-HCl 0.125 MG Tablet PO ×3 (00:10→21:08)
[2024-01-18] MEDS: Pilocarpine HCl 5 MG Tablet 2.5 MG PO ×3 (05:53→21:10)
[2024-01-18] MEDS: Acetaminophen 500 MG Tablet 1000 MG PO ×3 (05:53→21:11)
[2024-01-18] MEDS: Venlafaxine XR 75 MG Capsule PO (08:29)
[2024-01-18] MEDS: APIXABAN 2.5 MG TABLET (WCH) PO ×2 (08:29→21:09)
[2024-01-18] MEDS: Vitamin B Comp W-C Capsule 1 CAP PO (08:29)
[2024-01-18] MEDS: Iron Polysaccharide Complex 150 MG CAPSULE PO (08:29)
[2024-01-18] MEDS: Multivitamins,Therapeutic Tablet 1 TABLET PO (08:29)
[2024-01-18] MEDS: Multivitamin (Healthy Eyes) Capsule 1 CAP PO (08:29)
[2024-01-18] MEDS: Calcium Carb/Vitamin D 1 TABLET Tablet 2 TABLET PO ×2 (08:29→21:10)
[2024-01-18] MEDS: Menthol/Lanolin/Calamine/Znox 113 GM Tube 1 APPLIC TOPICAL ×2 (08:30→21:12)
[2024-01-18] MEDS: Pantoprazole Sodium 40 MG Tablet PO ×2 (08:30→21:10)
[2024-01-18] MEDS: Zinc Sulfate 50 mg zinc (220 mg) ORAL capsule PO (08:30)
[2024-01-18] MEDS: Senna/Docusate Sodium 1 Tablet 2 TABLET PO ×2 (08:30→21:11)
[2024-01-18] MEDS: Fluticasone 0.05% 1 SPRAY NASAL.SRY 2 SPRAY NASAL (08:30)
[2024-01-18] MEDS: Glycerin/Hypromellose/PEG400 15 ml Bottle EACH EYE (08:31)
[2024-01-18] MEDS: BMX LIQUID 180 ML 10 ML PO ×2 (08:34→21:12)
[2024-01-18 08:45] VITALS: BP 135/64; PULSE 78; RESP 16; TEMP 36.3; O2SAT 97
[2024-01-18 08:51] VITALS: PULSE 77; RESP 16; O2SAT 96
[2024-01-18] MEDS: Hydroxychloroquine 200 MG Tablet PO (11:01)
--- NOTE | 2024-01-18 17:11 | CASEMGMT ---
Social Work SW met with pt and discussed discharge. Pt planning to discharge on Thursday01/20/24. Team recommending home health services and pt is agreeable. Pt preferred provider is [facility]. Referral made to [facility] for PT/OT/SN. SW awaiting a determination of acceptance. Pt will need a pediatric FWW. Referral sent, including script, to [facility] via [address] requesting device be delivered to pt room on Thursday. Plan: DC home alone on 01/20/24 with [facility] PT/OT/SN and a pediatric wheeled walker [employer]
[2024-01-18] MEDS: MELATONIN 3 MG TABLET PO (21:09)
[2024-01-18] MEDS: Magnesium Chloride 64 MG Delay Rel.Tablet PO (21:09)
[2024-01-19] MEDS: Pramipexole Di-HCl 0.125 MG Tablet PO ×3 (00:10→21:09)
[2024-01-19] MEDS: Pregabalin 25 MG Capsule PO ×3 (00:10→21:09)
[2024-01-19] MEDS: oxyCODONE 5 MG Tablet PO ×5 (00:10→21:07)
[2024-01-19] MEDS: Acetaminophen 500 MG Tablet 1000 MG PO ×3 (05:48→21:10)
[2024-01-19] MEDS: Pilocarpine HCl 5 MG Tablet 2.5 MG PO ×3 (05:48→21:12)
[2024-01-19] MEDS: Calcium Carb/Vitamin D 1 TABLET Tablet 2 TABLET PO ×2 (08:10→21:11)
[2024-01-19] MEDS: Vitamin B Comp W-C Capsule 1 CAP PO (08:10)
[2024-01-19] MEDS: Iron Polysaccharide Complex 150 MG CAPSULE PO (08:10)
[2024-01-19] MEDS: Senna/Docusate Sodium 1 Tablet 2 TABLET PO ×2 (08:10→21:11)
[2024-01-19] MEDS: Hydroxychloroquine 200 MG Tablet PO (08:10)
[2024-01-19] MEDS: APIXABAN 2.5 MG TABLET (WCH) PO ×2 (08:10→21:10)
[2024-01-19] MEDS: Zinc Sulfate 50 mg zinc (220 mg) ORAL capsule PO (08:10)
[2024-01-19] MEDS: Multivitamin (Healthy Eyes) Capsule 1 CAP PO (08:10)
[2024-01-19] MEDS: Multivitamins,Therapeutic Tablet 1 TABLET PO (08:10)
[2024-01-19] MEDS: Pantoprazole Sodium 40 MG Tablet PO ×2 (08:10→21:11)
[2024-01-19] MEDS: Fluticasone 0.05% 1 SPRAY NASAL.SRY 2 SPRAY NASAL (08:11)
[2024-01-19] MEDS: Venlafaxine XR 75 MG Capsule PO (08:11)
[2024-01-19] MEDS: Atorvastatin Calcium 10 MG Tablet 5 MG PO (08:11)
[2024-01-19] MEDS: Menthol/Lanolin/Calamine/Znox 113 GM Tube 1 APPLIC TOPICAL ×2 (08:17→21:13)
--- NOTE | 2024-01-19 09:35 | CASEMGMT ---
Social Work SW received a call from Admissions Intake [facility] Maureen DA SILVA informing SW that [facility] Care can accept patient for services; SOC will take place on 01/20. In addition, SW received confirmation from [facility] that pediatric walker will be delivered at bedside. SW met with patient at bedside to notify of home health care start of care and [facility] DME. Patient confirmed that friend will provide transportation at discharge. RITCHIE Agustin
[2024-01-19 11:22] VITALS: BMI 22.3
[2024-01-19 13:57] VITALS: BP 118/59; PULSE 84; RESP 16; TEMP 36; O2SAT 95
--- NOTE | 2024-01-19 18:19 | CASEMGMT ---
Social Work SW met with patient at bedside to complete discharge MDS. Patient BIM () and PhQ-2 (09/07) Patient informed SW that she felt sad for 30 minutes on Mother's Day knowing her daughter was sick and unable to facetime and thinking of sons passing. Patient informed SW that she feels supported by her community. RITCHIE Agustin
[2024-01-19] MEDS: BMX LIQUID 180 ML 10 ML PO (21:09)
[2024-01-19] MEDS: Glycerin/Hypromellose/PEG400 15 ml Bottle EACH EYE (21:10)
[2024-01-19] MEDS: MELATONIN 3 MG TABLET PO (21:11)
[2024-01-19] MEDS: Magnesium Chloride 64 MG Delay Rel.Tablet PO (21:12)
[2024-01-19 21:15] VITALS: RESP 16
[2024-01-20] MEDS: Pramipexole Di-HCl 0.125 MG Tablet PO (00:06)
[2024-01-20] MEDS: Pregabalin 25 MG Capsule PO (00:06)
[2024-01-20] MEDS: Acetaminophen 500 MG Tablet 1000 MG PO (05:22)
[2024-01-20] MEDS: oxyCODONE 5 MG Tablet PO (05:22)
[2024-01-20] MEDS: Pilocarpine HCl 5 MG Tablet 2.5 MG PO (05:23)
[2024-01-20 05:32] VITALS: PULSE 80; RESP 16; O2SAT 94
[2024-01-20] MEDS: Fluticasone 0.05% 1 SPRAY NASAL.SRY 2 SPRAY NASAL (08:33)
[2024-01-20] MEDS: Multivitamins,Therapeutic Tablet 1 TABLET PO (08:33)
[2024-01-20] MEDS: Iron Polysaccharide Complex 150 MG CAPSULE PO (08:33)
[2024-01-20] MEDS: Calcium Carb/Vitamin D 1 TABLET Tablet 2 TABLET PO (08:34)
[2024-01-20] MEDS: Vitamin B Comp W-C Capsule 1 CAP PO (08:34)
[2024-01-20] MEDS: Pantoprazole Sodium 40 MG Tablet PO (08:34)
[2024-01-20] MEDS: Venlafaxine XR 75 MG Capsule PO (08:34)
[2024-01-20] MEDS: Multivitamin (Healthy Eyes) Capsule 1 CAP PO (08:34)
[2024-01-20] MEDS: APIXABAN 2.5 MG TABLET (WCH) PO (08:34)
[2024-01-20] MEDS: Hydroxychloroquine 200 MG Tablet PO (08:34)
[2024-01-20] MEDS: Zinc Sulfate 50 mg zinc (220 mg) ORAL capsule PO (08:34)
[2024-01-20] MEDS: Menthol/Lanolin/Calamine/Znox 113 GM Tube 1 APPLIC TOPICAL (08:37)
[2024-01-20 10:47] VITALS: BP 136/68; PULSE 77; RESP 18; TEMP 36.8; O2SAT 93
== END 2024-01-20 10:50 | disposition home health service (06) | DRG 560 ==
PROVIDERS: Admitting Provider Family Medicine Geriatric Medicine; PCP Internal Medicine; Visit Provider Family Medicine Geriatric Medicine
DX: S72.002D Fracture of unspecified part of neck of left femur, subsequent encounter for closed fracture with routine healing (principal); M35.2 Behcet's disease; K50.90 Crohn's disease, unspecified, without complications; I48.0 Paroxysmal atrial fibrillation; G25.81 Restless legs syndrome; E78.00 Pure hypercholesterolemia, unspecified; R13.11 Dysphagia, oral phase; K56.41 Fecal impaction; F32.A Depression, unspecified; J30.9 Allergic rhinitis, unspecified; M79.7 Fibromyalgia; W19.XXXD Unspecified fall, subsequent encounter; K21.00 Gastro-esophageal reflux disease with esophagitis, without bleeding; K31.7 Polyp of stomach and duodenum; K44.9 Diaphragmatic hernia without obstruction or gangrene; G47.33 Obstructive sleep apnea (adult) (pediatric); K22.4 Dyskinesia of esophagus; Z86.73 Personal history of transient ischemic attack (TIA), and cerebral infarction without residual deficits; Z79.891 Long term (current) use of opiate analgesic; G47.00 Insomnia, unspecified; Z79.01 Long term (current) use of anticoagulants; Z79.82 Long term (current) use of aspirin; Z79.899 Other long term (current) drug therapy; Z96.642 Presence of left artificial hip joint; Z85.820 Personal history of malignant melanoma of skin
CPT/HCPCS: 36415; 71046; 74230; 80048; 80061; 82306; 83540; 83550; 85014; 85018; 85025; 92507; 92523; 92526; 92610; 92611; 93005; 97110; 97116; 97162; 97166; 97530; 97535; 97802; A4216

== ENCOUNTER 2024-01-07 14:52 | Day surgery (SDC) | payer MEDICARE, BC, SELFPAY ==
--- NOTE | 2024-01-07 12:45 | EGD_PTH ---
PATIENT: MICHAEL VALENZUELA LOC: EN U#:[id number] AGE/SX: 88/F ROOM: RE01/07/[address]: Dr. Benjamin Hoyt DO : 1935 BED: DIS: 01/07/2024 SPEC #: [id number] RECD: 01/08/24 08:32 STATUS: AUGUSTO WAGNER #: [id number] ENRIQUE: 01/07/24 12:[address]: Benjamin Hoyt DEPT: SURGICAL PATHOLOGY RECD BY: Radha Huizar ENTERED: 01/08/24 10:07 SP TYPE: EGD BIOPSY OT DR: Dr. Leatha Kincaid MD Tissues: Esophagus, NOS Procedures: Special Stain Group II Surgery Specimen Level IV Alcian Blue/PAS (control) HEADER OPERATION: EGD with Botox, biopsy PRE-OP DIAGNOSIS: Dysphagia TISSUE SUBMITTED: Distal esophagus biopsy MICROSCOPIC DIAGNOSIS Distal esophagus, biopsy: Fragments of gastroesophageal mucosa with chronic inflammation. Intestinal metaplasia (goblet cell metaplasia) not identified. See comment. / 01/11/24 COMMENT Alcian blue/PAS stain with matched control is used in the evaluation of the specimen. MICROSCOPIC DESCRIPTION Slides are reviewed. GROSS DESCRIPTION Received in fixative is one container labeled with the patient's name and designated Distal esophagus biopsy. The specimen consists of multiple irregular fragments of light rosa soft tissue that in aggregate measure 1.0 x 0.5 x 0.1 cm. The specimen is totally submitted in one cassette. /mr 01/08/24 TC:3 CPT:25500,92489
[2024-01-07 14:54] VITALS: BP 125/55; PULSE 84; RESP 16; TEMP 36.1; O2SAT 94; BMI 22.8
[2024-01-07] MEDS: Lactated Ringers 1,000 ML 15 ML IV (15:05)
--- NOTE | 2024-01-07 16:12 | PCM.HP.BLA ---
History and Physical Date of Admission: 01/07/24 Reason for Consultation: Dysphagia HPI Narrative: MICHAEL VALENZUELA, is a 88 F PMHx: Chronic anemia, Anxiety and Depression, PAF, Behcet's disease/Sjogren's disease, GERD, Crohn's disease, HLD, Chronic migraines, MARILEE, Hx choroid melanoma left eye, Ankylosing spondylitis, RLS who presents to the [facility] ED on 12/22/23 with history of unfortunately mechanical fall in her garage onto the hard floor, tripping with significant sharp left lower extremity and hip pain, unable to bear weight prompting eventual ED evaluation. Patient reports that she does not take any anticoagulation but a daily baby aspirin given her underlying PAF history. Patient underwent left hip hemiarthroplasty on 2023. She has been in the transitional care unit getting stronger before she goes home. She has been having some intermittent esophageal dysphagia. I got to know her back in 2021 for esophageal dysphagia. EGD performed 11.04.21 finding abnormal esophageal motility suspicious for esophageal spasm; moderate Schatzki ring, dilated with Savary to 51F; multiple gastric polyps; single GE junction polyp with chronic inflammation without metaplasia; duodenitis. Remaining biopsies without pathologic diagnosis. [facility] Medical History (Updated 01/06/24 @ 17:[address] Alexander Friend, DO) Anemia Anxiety and depression Arthritis Atrial fibrillation Back pain Behcet's disease Cardiology follow-up encounter Cataract Choroid melanoma of left eye Constipation Crohns disease Diverticulitis Dysphagia Exanthematous disorder Fibromyalgia GERD (gastroesophageal reflux disease) Glossodynia H/O Sjogren's disease High cholesterol History of diverticulitis History of echocardiogram History of IBS Hyperlipidemia Injury of back lap repair bladder injury Low back pain Lymphocytic colitis Meningitis Migraine headache Non-smoker Raynaud's disease Sleep apnea TIA (transient ischemic attack) Wears glasses Wears partial dentures Home Medications aspirin 81 mg tablet,delayed release 81 mg PO DINNER heart health 03/29/16 [History Last Taken 10/31/21] atorvastatin 10 mg tablet 5 mg PO QODAY cholesterol 03/29/16 [History Last Taken 09/26/18] calcium citrate 315 mg-vitamin D3 5 mcg (200 unit) tablet 2 tab PO BID supplement 03/29/16 [History Last Taken 09/27/18] cyclosporine 0.05 % eye drops in a dropperette (Restasis) 1 drp EACH EYE BID eye 03/29/16 [History Last Taken 09/27/18] flaxseed oil 1,000 mg capsule 1,000 mg PO DAILY supplement 03/29/16 [History Last Taken 09/27/18] hydroxychloroquine 200 mg tablet 200 mg PO DAILYCM arthritis 03/29/16 [History Last Taken 09/26/18] melatonin 3 mg tablet 3 mg PO QHS sleep 03/29/16 [History Last Taken 09/26/18] pilocarpine HCl 5 mg tablet 2.5 mg PO TID bp 03/29/16 [History Last Taken 09/27/18] pramipexole 0.125 mg tablet (Mirapex) 0.125 mg PO .1900, 2200 restless legs 03/29/16 [History Last Taken 09/26/18] oxycodone-acetaminophen 5 mg-325 mg tablet (Percocet) 0.5 tab PO BID 09/19/16 [History Last Taken 09/26/18] fluticasone propionate 50 mcg/actuation nasal spray,suspension 2 spry NASAL DAILY allergies 09/27/18 [History Last Taken 09/24/18] magnesium oxide 400 mg PO QHS supplement 09/27/18 [History Last Taken 09/26/18] multivitamin 1 tab PO DAILY vitamin 09/27/18 [History Last Taken 09/26/18] venlafaxine 150 mg capsule,extended release 24 hr 75 mg PO DAILY anxiety 09/27/18 [History Last Taken 09/27/18] vitamin B complex 1 tab PO DAILY vitamin 09/27/18 [History Last Taken 09/26/18] white petrolatum-mineral oil 94 %-3 % eye ointment (Systane Nighttime) 3.5 g OP DAILY dry eye 09/27/18 [History Last Taken 09/26/18] pregabalin 25 mg capsule (Lyrica) 25 mg PO TID neuropathy 08/16/21 [History Last Taken Unknown] zinc 50 mg tablet 50 mg PO DAILY supplement 10/31/21 [History Last Taken Unknown] albuterol sulfate 90 mcg/actuation aerosol inhaler (Ventolin HFA) 2 puff inhalation Q4H PRN shortness of breath or wheezing #8.5 grams 02/03/23 [Rx Last Taken Unknown] lubiprostone 24 mcg capsule (Amitiza) 24 mcg PO DAILY ? #30 caps 12/14/23 [Rx Last Taken Unknown] acetaminophen 325 mg tablet 650 mg (2 x 325 mg) PO Q4H PRN PRN Fever, pain 1-10/10 #0 tabs 12/25/23 [Rx Last Taken Unknown] apixaban 5 mg tablet (Eliquis) 2.5 mg (1/2 x 5 mg) PO BID blood thin 30 days #30 tabs 12/25/23 [Rx Last Taken Unknown] magnesium hydroxide 400 mg/5 mL oral suspension 30 ml PO DAILY PRN PRN Constipation #0 mL 12/25/23 [Rx Last Taken Unknown] oxycodone 5 mg tablet 5 mg PO Q4H PRN PRN PAIN 4-6 #0 tabs 12/25/23 [Rx Last Taken Unknown] sennosides 8.6 mg-docusate sodium 50 mg tablet (Stool Softener-Stimulant Laxative) 2 tab PO BID stool softener #0 tabs 12/25/23 [Rx Last Taken Unknown] Allergy/AdvReac Type Severity Reaction Status Date / Time amoxicillin Allergy Rash Verified 05/13/23 14:53 difluprednate [From Durezol] Allergy Other Verified 05/13/23 14:53 methylprednisolone Allergy Rash Verified 05/13/23 14:53 Penicillins Allergy Unknown Verified 05/13/23 14:53 prednisolone Allergy Swelling Verified 05/13/23 14:53 sucralfate [From Carafate] Allergy restless Verified 05/13/23 14:53 legs diphenhydramine AdvReac Intermediate Other Verified 05/13/23 14:53 [From Benadryl] amitriptyline AdvReac sleepiness Verified 05/13/23 14:53 citalopram AdvReac Diarrhea Verified 05/13/23 14:53 codeine AdvReac Nausea Verified 05/13/23 14:53 dexamethasone AdvReac Other Verified 05/13/23 14:53 duloxetine HCl AdvReac Diarrhea Verified 05/13/23 14:53 [From Cymbalta] Iodinated Contrast Media AdvReac unknown Verified 05/13/23 14:53 [Iodinated Contrast- Oral and IV Dye] lamotrigine [From Lamictal] AdvReac DRUGGED Verified 05/13/23 14:53 FEELING metoclopramide HCl AdvReac INVOLUNTARY Verified 05/13/23 14:53 [From Reglan] BODY MOVEMENTS mirabegron [From Myrbetriq] AdvReac Other Verified 05/13/23 14:53 promethazine HCl AdvReac INVOLUNTARY Verified 05/13/23 14:53 [From Phenergan] BODY MOVEMENTS sertraline HCl [From Zoloft] AdvReac Diarrhea Verified 05/13/23 14:53 sulfamethoxazole AdvReac FELT Verified 05/13/23 14:53 [From Bactrim] WEIRD, HEAD NUMB, FELT DRUGGED, SHAKEY, NAUSEATED trimethoprim [From Bactrim] AdvReac FELT Verified 05/13/23 14:53 WEIRD, HEAD NUMB, FELT DRUGGED, SHAKEY, NAUSEATED Family History Mother Diabetes Breast cancer Arthritis Asthma auto immune diseaseFather Heart disease Hypertension Hyperlipidemia CVA (cerebral vascular accident) Arthritis Surgical History (Updated 01/06/24 @ 13:[address] Haroon Pineda DO) H/O adenoidectomy H/O colonoscopy H/O cystoscopy H/O dilation and curettage H/O endoscopy H/O vaginal hysterectomy History of cholecystectomy History of tonsillectomy Hx of appendectomy Hx of bilateral cataract extraction Hx of eye surgery Social History household members: none housing: house Smoking Status: Never smoker alcohol intake: never substance use type: does not use ROS Constitutional Constitutional: Denies chills, fever(s) or weight gain ENT HEENT: Denies headache(s), nasal congestion or nasal discharge Cardiovascular Cardiovascular: Denies chest pain or palpitations Respiratory/Chest Respiratory/Chest: Denies cough, excessive phlegm production or shortness of breath with exertion Gastrointestinal Gastrointestinal: Denies abdominal pain, nausea or vomiting Genitourinary Genitourinary: Denies dysuria Musculoskeletal Musculoskeletal: Denies joint pain or joint swelling Integumentary Integumentary: Denies rash or wounds Neurologic Neurologic: Denies focal weakness, numbness or tingling Psychiatric Psychiatric: Denies anxiety, auditory hallucinations, depression, homicidal ideation or suicidal ideation Physical Exam Const alert General Appearance: cooperative HEENT normocephalic Eyes PERRL and EOMs intact bilaterally Neck supple, no JVD and no carotid bruits Resp normal respiratory effort, normal air movement and clear to auscultation bilaterally Cardio regular rate and regular rhythm GI normal to inspection, nondistended, normoactive bowel sounds, non-tender and non-distended Extremity normal capillary refill General Extremity: Negative for edema Skin no rashes or lesions noted General Skin Exam: no breakdown Psych affect normal Appearance: appropriate Lab / Micro Data 01/01/24 05:29 01/01/24 05:29 Assessment & Plan Assessment/Plan (1) Dysphagia: PLAN: Plan 88-year-old with multiple comorbidities status post recent hip fracture status left hip hemiarthroplasty on 12 23 2023. She underwent modified barium swallow: She is given a diagnosis of diagnosis: Mild Oral Dysphagia, Moderate Esophageal Dysphagia. She also has an underlying disorder of the esophagus secondary to inappropriate esophageal motility and esophageal spasm as seen on manometry. Recommend upper endoscopy with possible Botox administration and dilation of the proximal and mid esophagus. She was explained alternatives, risk, benefits include not withstanding bleeding, infection, sepsis, perforation, need for emergent and . She have an ASA of 3. I have examined the patient and the H&P has been reviewed. There are no clinical changes since date of exam.
[2024-01-07] MEDS: 0.9% Normal Saline (Pres. free 10 ML Vial (16:42)
[2024-01-07] MEDS: Botulinum Toxin A 100 Units Vial IJ (16:42)
[2024-01-07 16:55] VITALS: BP 135/56; PULSE 109; RESP 20; TEMP 36.9; O2SAT 94
[2024-01-07 17:00] VITALS: BP 127/78; PULSE 110; RESP 20; O2SAT 94
--- NOTE | 2024-01-07 17:01 | OP.CCLET_ITS ---
01/07/2024 Leatha Kincaid [address] [place] [address] Re : Upper GI endoscopy procedure for Feli Molina Dear Dr. Kincaid This procedure was performed on January. My impressions and recommendations are as follows: Impressions : - Abnormal esophageal motility, established esophageal spasm. Injected with botulinum toxin. Dilated. 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 - Small hiatal hernia. - Multiple gastric polyps. - Normal duodenal bulb. - Biopsies were taken with a cold forceps for evaluation of eosinophilic esophagitis. Recommendations : - Return patient to referring hospital for ongoing care. - Advance diet as tolerated. - Use Protonix (pantoprazole) 40 mg PO BID. - Continue present medications. My findings are described in the full procedure note, which is enclosed. If I can be of further assistance, please feel free to contact me at . Sincerely, Benjamin Hoyt, 01/07/2024 5:00:54 PM This report has been signed electronically.
--- NOTE | 2024-01-07 17:01 | OP.EGD_ITS ---
Patient Name: Feli Molina Procedure Date: 01/07/2024 1:36 PM Date of : 1935 Age: 88 Procedure: Upper GI endoscopy Indications: Dysphagia Providers: Benjamin Hoyt DO Medicines: Monitored Anesthesia Care Patient Profile: This is an 88 year old female. Refer to note in patient chart for documentation of history and physical. Patient has symptoms of dysphagia with both liquids and solids. Complications: No immediate complications. Procedure: Pre-Anesthesia Assessment: - Prior to the procedure, a History and Physical was performed, and patient medications and allergies were reviewed. The patient is competent. The risks and benefits of the procedure and the sedation options and risks were discussed with the patient. All questions were answered and informed consent was obtained. Patient identification and proposed procedure were verified by the physician in the pre-procedure area. Mental Status Examination: alert and oriented. Airway Examination: normal oropharyngeal airway and neck mobility. Respiratory Examination: clear to auscultation. CV Examination: normal. Prophylactic Antibiotics: The patient does not require prophylactic antibiotics. Prior Anticoagulants: The patient has taken no anticoagulant or antiplatelet agents. ASA Grade Assessment: II - A patient with mild systemic disease. After reviewing the risks and benefits, the patient was deemed in satisfactory condition to undergo the procedure. The anesthesia plan was to use monitored anesthesia care (MAC). Immediately prior to administration of medications, the patient was re-assessed for adequacy to receive sedatives. The heart rate, respiratory rate, oxygen saturations, blood pressure, adequacy of pulmonary ventilation, and response to care were monitored throughout the procedure. The physical status of the patient was re-assessed after the procedure. After obtaining informed consent, the endoscope was passed under direct vision. Throughout the procedure, the patient's blood pressure, pulse, and oxygen saturations were monitored continuously. The gastroscope was introduced through the mouth, and advanced to the second part of duodenum. The upper GI endoscopy was accomplished without difficulty. The patient tolerated the procedure well. Scope In: 4:41:02 PM Scope Out: 4:49:11 PM Total Procedure Duration Time 0 hours 8 minutes 9 seconds Findings: Abnormal motility was noted in the esophagus. The cricopharyngeus was abnormal. There are extra peristaltic waves in the esophageal body. The distal esophagus/lower esophageal sphincter is spastic, but gives up passage to the endoscope. Tertiary peristaltic waves are noted. Area was successfully injected with 100 units botulinum toxin. A guidewire was placed and the scope was withdrawn. Dilation was performed with a Savary dilator with no resistance at 51 Fr. The dilation site was examined and showed moderate improvement in luminal narrowing. Estimated blood loss was minimal. Mucosal changes including ringed esophagus, small-caliber esophagus and circumferential folds were found in the lower third of the esophagus. Biopsies were obtained from the proximal and distal esophagus with cold forceps for histology of suspected eosinophilic esophagitis. Verification of patient identification for the specimen was done. Estimated blood loss was minimal. A small hiatal hernia was present. Multiple 2 mm hyperplastic polyps with no bleeding and no stigmata of recent bleeding were found in the entire examined stomach. The duodenal bulb was normal. Impression: - Abnormal esophageal motility, established esophageal spasm. Injected with botulinum toxin. Dilated. 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 - Small hiatal hernia. - Multiple gastric polyps. - Normal duodenal bulb. - Biopsies were taken with a cold forceps for evaluation of eosinophilic esophagitis. Recommendation: - Return patient to referring hospital for ongoing care. - Advance diet as tolerated. - Use Protonix (pantoprazole) 40 mg PO BID. - Continue present medications. Procedure Code(s): --- Professional --- 56445, Esophagogastroduodenoscopy, flexible, transoral; with insertion of guide wire followed by passage of dilator(s) through esophagus over guide wire 60045, 59,51, Esophagogastroduodenoscopy, flexible, transoral; with biopsy, single or multiple 63873, 59, Esophagogastroduodenoscopy, flexible, transoral; with directed submucosal injection(s), any substance CPT copyright 2021 [employer]. All rights reserved. The codes documented in this report are preliminary and upon sales strategy manager review may be revised to meet current compliance requirements. Benjamin Hoyt DO 01/07/2024 5:00:54 PM This report has been signed electronically. Number of Addenda: 0 Note Initiated On: 01/07/2024 1:36 PM
[2024-01-07 17:05] VITALS: BP 144/84; PULSE 104; RESP 20; O2SAT 93
[2024-01-07 17:10] VITALS: BP 147/76; PULSE 101; RESP 16; TEMP 36.6; O2SAT 92
== END 2024-01-07 17:37 | disposition home or self-care (01) ==
LOC: EN 14:53 → AC 14:54
PROVIDERS: PCP Internal Medicine; Referring Provider Internal Medicine; Visit Provider Internal Medicine Gastroenterology
PROC: 0DJ08ZZ Inspection of Upper Intestinal Tract, Via Natural or Artificial Opening Endoscopic (ICD-10-PCS; CPT 43235; principal; 2024-01-07 12:40)
DX: K22.4 Dyskinesia of esophagus (principal); K50.90 Crohn's disease, unspecified, without complications; I48.0 Paroxysmal atrial fibrillation; M35.2 Behcet's disease; K44.9 Diaphragmatic hernia without obstruction or gangrene; F41.9 Anxiety disorder, unspecified; G43.709 Chronic migraine without aura, not intractable, without status migrainosus; K21.00 Gastro-esophageal reflux disease with esophagitis, without bleeding; Z79.01 Long term (current) use of anticoagulants; E78.00 Pure hypercholesterolemia, unspecified; K31.7 Polyp of stomach and duodenum; M35.00 Sjogren syndrome, unspecified; D64.9 Anemia, unspecified; Z87.19 Personal history of other diseases of the digestive system; Z90.49 Acquired absence of other specified parts of digestive tract
CPT/HCPCS: 43248; 43239; 43236; 88305; 88313; J7120; J0585; J3490

== ENCOUNTER 2024-05-16 13:55 | Observation (INO) | payer MEDICARE, BC, SELFPAY ==
[2024-05-16] VITALS (11 sets, daily range): BP systolic 109–170; BP diastolic 60–98; PULSE 78–95; RESP 16–19; TEMP 36.6–36.7; O2SAT 76–99; BMI 24.9; BMI 25.7; BMI 22.0
--- NOTE | 2024-05-16 14:03 | EKG12_ITS ---
Test Reason : NEURO Blood Pressure : / mmHG Vent. Rate : 095 BPM Atrial Rate : 095 BPM P-R Int : 118 ms QRS Dur : 092 ms QT Int : 366 ms P-R-T Axes : 038 -53 043 degrees QTc Int : 459 ms Normal sinus rhythm Left anterior fascicular block Abnormal ECG Confirmed by MAURO SOTO, RIGO ([id number]), makeup editor MARCY ORTEGA ([id number]) on 05/17/2024 7:41:30 AM Referred By: Confirmed By:RIGO WADE MD
[2024-05-16 14:24] LABS: Absolute Neutrophil Count 6.9 X10^3/uL (2.0-7.7); Basophil# 0.03 X10^3/uL; Basophil% 0.3 % (0-1); Eosinophil# 0.32 X10^3/uL; Eosinophils% 3.2 % (0-5); Hematocrit 40.2 % (37-47); Hemoglobin 12.5 g/dL (12.0-15.0); Lymphocyte % 18.1 % (19-41); Mean Corp Hgb Conc 31.1 g/dL (32-36); Mean Corpuscular Hgb 26.4 pg (27.0-32.0); Mean Corpuscular Volume 84.8 fL (81-99); Monocyte# 0.81 X10^3/uL; Monocyte% 8.1 % (0-10); NRBC Flagged by Analyzer 0 % (0-5); Neutrophil # 6.93 X10^3/uL (2.7-7.7); Neutrophil % 69.8 % (47-70); Platelet Count 271 K/mm3 (150-450); RBC Distribution Width CV 14.9 % (11.6-14.6); RBC Distribution Width SD 45.7 fl (35.1-43.9); Red Blood Count 4.74 M/mm3 (4.2-5.4); White Blood Count 9.9 K/mm3 (4.4-11.0)
[2024-05-16 14:33] LABS: International Normalized Ratio 1.1; Prothrombin Time (Protime)PT. 14.3 SECONDS (11.7-14.9)
--- NOTE | 2024-05-16 14:36 | CT_ITS ---
INDICATION: R facial droop RLE numbness, resolved EXAMINATION: CT BRAIN WITHOUT CONTRAST, CTA HEAD, AND CTA NECK TECHNIQUE: Noncontrast axial images were obtained of the brain. Subsequently, routine carotid CT angiogram protocol was performed without and with IV contrast. In addition, images were obtained of the [place]. NASCET criteria using the distal ICAs for comparison were used for evaluation of stenoses. 3D reconstructions were reviewed. The protocol utilizes one or more of the following dose reduction techniques: automated exposure control, adjustment of mA and/or kV according to patient size,and/or use of iterative reconstruction technique. IV Contrast dosage and agent: COMPARISON: FINDINGS: --CT BRAIN WITHOUT CONTRAST: BRAIN PARENCHYMA: No intra- or extra-axial hemorrhage. No evidence of acute infarct. No intracranial mass or mass effect. Bilateral white matter microangiopathic ischemic changes. Posterior fossa structures are unremarkable. CSF SPACES: Appropriate for age. No hydrocephalus. Basal cisterns are patent. CALVARIUM, SKULL BASE, PARANASAL SINUSES AND MASTOID AIR CELLS: Clear. No discrete lytic or blastic abnormalities. --CTA NECK: AORTIC ARCH AND BRANCHES: Normal anatomy, patent. RIGHT CCA: No occlusion, significant stenosis or dissection. RIGHT CAROTID BULB: Mild calcifications with no hemodynamically significant stenosis. RIGHT ICA: No occlusion, significant stenosis or dissection. LEFT CCA: No occlusion, significant stenosis or dissection. LEFT CAROTID BULB: Mild calcifications with no hemodynamically significant stenosis. LEFT ICA: No occlusion, significant stenosis or dissection. RIGHT VERTEBRAL ARTERY: No occlusion, significant stenosis or dissection. LEFT VERTEBRAL ARTERY: No occlusion, significant stenosis or dissection. NECK SOFT TISSUES: Unremarkable. --CTA HEAD: --Anterior circulation: ICAs: No significant stenosis at the intracranial/visualized segments. ACAs: No significant stenosis at the visualized segments. ACOM: Present. MCAs: No significant stenosis at the visualized segments. --Posterior circulation: PCOMs: Nonvisualization bilaterally. adult education instructor: No significant stenosis at the visualized segments. BASILAR ARTERY: No significant stenosis. VERTEBRAL ARTERIES: No significant stenosis at the intradural/visualized segments. No evidence of intracranial aneurysm or vascular malformation. CT/CTA Head AND Neck W/ Contrast IMPRESSION: No acute intracranial pathology. Age-related changes. No hemodynamically significant stenosis. No aneurysm or dissection. Electronically Signed: Jayce Tee DO at 16:26 EDT ,
[2024-05-16 14:44] LABS: Anion Gap 9 (5-15); BUN 14 mg/dL (7-18); BUN/Creat Ratio 18.2 RATIO (10-20); Calcium,Total 9.2 mg/dL (8.5-10.1); Chloride 103 mmol/L (98-107); Creatinine, Serum 0.77 mg/dL (0.55-1.02); EST Glomerular Filtration Rate 75 mL/min (>60); Est Glom Filt Rate - Afr Amer 91 mL/min (>60); Glucose 152 mg/dL (74-106); Potassium 3.7 mmol/L (3.5-5.1); Sodium Level 139 mmol/L (136-145)
--- NOTE | 2024-05-16 14:50 | ED.VIS.STROK ---
HPI History of Present Illness Chief Complaint: Neuro S/Sx Informant: patient Narrative Narrative: 88-year-old female states today she looked in the mirror and saw that her right upper and lower face were droopy. She states 2 days ago she did not notice this droopiness, but her sister noted that her face did not look right and thought that she had some droopiness. The patient states that her right leg from the knee down was numb that day but that resolved and is gone now. She has numbness in both feet intermittently chronically states that it comes and goes frequently. She has noted no weakness. She states she has felt poorly for the past 1 to 2 weeks and had some pain in her left face and neck that is still present, saw her PCP near the beginning and had a CT of her sinuses for that. She had been on aspirin daily and recently started clopidogrel within the last couple weeks after she had a skin procedure on her foot to remove a squamous cell carcinoma, she followed up with her machine bender today for that. Also states recently she has been having subjective trouble verbalizing her thoughts. She cannot put a timeframe on this. [facility] Medical History Anxiety and depression Wears partial dentures Wears glasses Anemia High cholesterol Back pain Injury of back Migraine headache TIA (transient ischemic attack) History of IBS History of diverticulitis Non-smoker Sleep apnea History of echocardiogram Cardiology follow-up encounter H/O Sjogren's disease Dysphagia GERD (gastroesophageal reflux disease) Constipation lap repair bladder injury Raynaud's disease Meningitis Lymphocytic colitis Low back pain Hyperlipidemia Arthritis Glossodynia Fibromyalgia Exanthematous disorder Crohns disease Cataract Behcet's disease Atrial fibrillation Diverticulitis Choroid melanoma of left eye Home Medications ?Medication ?Instructions ?Recorded ?Last Taken ?Type aspirin 81 mg tablet,delayed 81 mg PO DINNER heart health 03/29/16 10/31/21 History release atorvastatin 10 mg tablet 5 mg PO QODAY cholesterol 03/29/16 09/26/18 History calcium citrate 315 mg-vitamin D3 2 tab PO BID supplement 03/29/16 09/27/18 History 5 mcg (200 unit) tablet cyclosporine 0.05 % eye drops in a 1 drp EACH EYE BID eye 03/29/16 09/27/18 History dropperette (Restasis) hydroxychloroquine 200 mg tablet 200 mg PO DAILYCM arthritis 03/29/16 09/26/18 History melatonin 3 mg tablet 3 mg PO QHS sleep 03/29/16 09/26/18 History pilocarpine HCl 5 mg tablet 2.5 mg PO TID bp 03/29/16 09/27/18 History pramipexole 0.125 mg tablet 0.125 mg PO .1900, 2200 restless 03/29/16 09/26/18 History (Mirapex) legs fluticasone propionate 50 2 spry NASAL DAILY allergies 09/27/18 09/24/18 History mcg/actuation nasal spray,suspension magnesium oxide 400 mg PO QHS supplement 09/27/18 09/26/18 History multivitamin 1 tab PO DAILY vitamin 09/27/18 09/26/18 History venlafaxine 150 mg 75 mg PO DAILY anxiety 09/27/18 09/27/18 History capsule,extended release 24 hr vitamin B complex 1 tab PO DAILY vitamin 09/27/18 09/26/18 History white petrolatum-mineral oil 94 3.5 g OP DAILY dry eye 09/27/18 09/26/18 History %-3 % eye ointment (Systane Nighttime) pregabalin 25 mg capsule (Lyrica) 25 mg PO TID neuropathy 08/16/21 Unknown History zinc 50 mg tablet 50 mg PO DAILY supplement 10/31/21 Unknown History albuterol sulfate 90 mcg/actuation 2 puff inhalation Q4H PRN 02/03/23 Unknown Rx aerosol inhaler (Ventolin HFA) shortness of breath or wheezing #8.5 grams acetaminophen 500 mg tablet 1,000 mg (2 x 500 mg) PO Q8 #0 tabs 01/14/24 Unknown Rx calcium carbonate 500 mg (2.5 x 200 mg calcium (500 01/14/24 Unknown Rx mg)) PO Q4H PRN PRN Indigestion #0 tabs oxycodone 5 mg tablet 5 mg PO Q4H PRN PRN Pain Score 01/14/24 Unknown Rx 4-10 Or Pre Pt/Ot 7 days #42 tabs vit A 300 mcg-C 200 mg-E 27 1 tab PO DAILYCM #0 tabs 01/14/24 Unknown Rx mg-lutein 2 mg and minerals tablet (Healthy Eyes) clindamycin HCl 300 mg capsule 600 mg (2 x 300 mg) PO ONCE #2 caps 03/28/24 Unknown Rx pantoprazole 40 mg tablet,delayed 40 mg PO BID #180 TABLETS 04/01/24 Unknown Rx release docusate sodium 100 mg capsule 100 mg PO TID PRN 04/14/24 Unknown History (Colace) pilocarpine HCl 5 mg tablet 2.5 mg PO TID 04/14/24 Unknown History Allergy/AdvReac Type Severity Reaction Status Date / Time amoxicillin Allergy Rash Verified 05/16/24 13:56 difluprednate (From Durezol) Allergy Other Verified 05/16/24 13:56 methylprednisolone Allergy Rash Verified 05/16/24 13:56 Penicillins Allergy Unknown Verified 05/16/24 13:56 prednisolone Allergy Swelling Verified 05/16/24 13:56 sucralfate (From Carafate) Allergy restless Verified 05/16/24 13:56 legs diphenhydramine (From AdvReac Intermediate Other Verified 05/16/24 13:56 Benadryl) amitriptyline AdvReac sleepiness Verified 05/16/24 13:56 citalopram AdvReac Diarrhea Verified 05/16/24 13:56 codeine AdvReac Nausea Verified 05/16/24 13:56 dexamethasone AdvReac Other Verified 05/16/24 13:56 duloxetine HCl (From AdvReac Diarrhea Verified 05/16/24 13:56 Cymbalta) Iodinated Contrast Media AdvReac unknown Verified 05/16/24 13:56 (Iodinated Contrast- Oral and IV Dye) lamotrigine (From Lamictal) AdvReac DRUGGED Verified 05/16/24 13:56 FEELING metoclopramide HCl (From AdvReac INVOLUNTARY Verified 05/16/24 13:56 Reglan) BODY MOVEMENTS mirabegron (From Myrbetriq) AdvReac Other Verified 05/16/24 13:56 promethazine HCl (From AdvReac INVOLUNTARY Verified 05/16/24 13:56 Phenergan) BODY MOVEMENTS sertraline HCl (From Zoloft) AdvReac Diarrhea Verified 05/16/24 13:56 sulfamethoxazole (From AdvReac FELT Verified 05/16/24 13:56 Bactrim) WEIRD, HEAD NUMB, FELT DRUGGED, SHAKEY, NAUSEATED trimethoprim (From Bactrim) AdvReac FELT Verified 05/16/24 13:56 WEIRD, HEAD NUMB, FELT DRUGGED, SHAKEY, NAUSEATED Family History Mother Diabetes Breast cancer Arthritis Asthma auto immune disease Father Heart disease Hypertension Hyperlipidemia CVA (cerebral vascular accident) Arthritis Surgical History Hx of bilateral cataract extraction Hx of eye surgery H/O endoscopy H/O dilation and curettage H/O adenoidectomy H/O vaginal hysterectomy H/O colonoscopy History of tonsillectomy H/O cystoscopy History of cholecystectomy Hx of appendectomy Social History household members: none housing: house Smoking Status: Never smoker alcohol intake: never substance use type: does not use ROS ROS ED Constitutional Constitutional ED: Reports malaise; Denies chills or fever(s) Eyes Eyes: Denies change in vision or diplopia ENT ENT ED: Denies rhinorrhea or sore throat Cardiovascular Cardiovascular: Denies chest pain or palpitations Respiratory/Chest Respiratory/Chest: Denies cough or dyspnea Gastrointestinal Gastrointestinal: Denies abdominal pain, diarrhea, nausea or vomiting Genitourinary Genitourinary ED: Denies dysuria or hematuria Musculoskeletal Musculoskeletal: Denies back pain or neck pain Integumentary Denies abscess or rash Neurologic Neurologic: Reports as per HPI, paresthesias and other Details: R facial droop this AM per pt ; Denies headache(s) or weakness Psychiatric Psychiatric: Denies suicidal thoughts EXAM Physical Exam Const Vital Signs: 05/16/24 13:56 05/16/24 14:03 05/16/24 14:55 Temperature 97.9 F Temperature Source Temporal Pulse Rate 95 91 Respiratory Rate 16 18 Blood Pressure 152/98 H 149/68 H Blood Pressure Mean 116 95 Pulse Ox 85 98 Oxygen Delivery Method Room Air Room Air Room Air 05/16/24 15:00 05/16/24 16:00 Temperature Temperature Source Pulse Rate 91 88 Respiratory Rate 16 16 Blood Pressure 149/68 H 117/81 H Blood Pressure Mean 95 93 Pulse Ox 98 98 Oxygen Delivery Method Room Air Room Air Positive well nourished and well developed General Appearance ED: well developed and NAD HEENT Reports moist mucous membranes normocephalic and atraumatic Eyes PERRL and EOMs intact bilaterally Neck full ROM and supple Chest Wall inspection of chest normal and palpation of chest normal Resp normal respiratory effort and clear to auscultation bilaterally Cardio regular rate, regular rhythm and no murmurs GI non-tender and non-distended Auscultation: normoactive bowel sounds Palpation: soft Back/Spine no CVA tenderness General Back: other FROM Extremity normal to inspection General Extremety ED: Negative for edema, pulses abnormal or tenderness General Extremity: Negative for edema or pulses abnormal Neuro oriented x3, CN's II-XII intact bilaterally and no sensory deficits noted Neuro Narrative: Normal speech. No facial droop. No focal neurologic deficits right now. Sensorium / Orientation: awake and alert Motor Exam: strength 5/5 throughout Psych mental status grossly normal Skin no rashes or lesions noted and no wounds NIHSS NIHSS Initial: 1a Level of Consciousness: 0 1b LOC Questions (Score 2 if aphasic/stupor): 0 1c LOC Commands (Only score 1st attempt): 0 2 Best Gaze (If aphasic, use reflexive mvmts.): 0 3 Visual: 0 4 Facial Palsy: 0 5 Motor Arm Right (UN = amputation/fusion): 0 5 Motor Arm Left: 0 6 Motor Leg Right: 0 6 Motor Leg Left: 0 7 Limb ataxia (Only + if out of proportion): 0 8 Sensory (Aphasia/stupor=0 or 1, coma=2): 0 9 Best Language: 0 10 Dysarthria (mute, coma=2, intubated=UN): 0 11 Extinction and Inattention (only scored if +): 0 Total Score: 0 MDM [facility] MDM Narrative Medical decision making narrative: Patient concerning for having symptoms of a TIA, possibly this morning with symptoms resolved now, possibly another 1 [address] angiography of the head and neck, images were reviewed and reports reviewed which I agree with, negative for anything acute. The rest of her workup is negative including her EKG and troponin and urinalysis shows no signs of infection. There is no metabolic or hematologic reason for this at this time. Patient is on clopidogrel, may need to be upgraded to full anticoagulation; apparently has a history of A-fib she is not in a right now. Given that she just had a TIA this morning potentially, recommend admission. She is apprehensive but amenable. Lab Data Attestation: I reviewed the patient's lab results. Labs: Laboratory Results - last 24 hr 05/16/24 05/16/24 05/16/24 14:20 15:07 15:32 WBC 9.9 RBC 4.74 Hgb 12.5 Hct 40.2 MCV 84.8 MCH 26.4 L MCHC 31.1 L RDW Std Deviation 45.7 H RDW Coeff of Celine 14.9 H Plt Count 271 MPV 10.0 Immature Gran % (Auto) 0.500 Neut % (Auto) 69.8 Lymph % (Auto) 18.1 L [place] % (Auto) 8.1 Eos % (Auto) 3.2 Baso % (Auto) 0.3 Absolute Neuts (auto) 6.9 Absolute Lymphs (auto) 1.80 Nucleated RBC % 0 PT 14.3 INR 1.1 APTT 36.6 H Sodium 139 Potassium 3.7 Chloride 103 Carbon Dioxide 27.0 Anion Gap 9 BUN 14 Creatinine 0.77 Est GFR (MDRD) Af Amer 91 Est GFR (MDRD) Non-Af 75 BUN/Creatinine Ratio 18.2 Glucose 152 H Calcium 9.2 Troponin I High Sens 8 Urine Color Cancelled Yellow Urine Clarity Cancelled Clear Urine pH Cancelled 6.0 Ur Specific [place] Cancelled 1.010 U Specif Grav (Refrac) Cancelled Urine Protein Cancelled Negative Urine Glucose (UA) Cancelled Normal Urine Ketones Cancelled Negative Urine Occult Blood Cancelled Negative Urine Nitrite Cancelled Negative Urine Bilirubin Cancelled Negative Urine Urobilinogen Cancelled Normal Ur Leukocyte Esterase Cancelled Negative Urine RBC Cancelled 0 SEEN Urine WBC Cancelled 0 SEEN Ur Squamous Epith Cells Cancelled 0 SEEN Ur Transition Epith Cell Cancelled Ur Renal Epithelial Cell Cancelled Calcium Oxalate Crystal Cancelled Uric Acid Crystals Cancelled Triple Phos Crystals Cancelled Other Crystals Cancelled Amorphous Sediment Cancelled Urine Bacteria Cancelled 0 SEEN Hyaline Casts Cancelled Fine Granular Casts Cancelled Coarse Granular Casts Cancelled Waxy Casts Cancelled RBC Casts Cancelled WBC Casts Cancelled Urine Mucus Cancelled 0 SEEN Urine Trichomonas Cancelled Urine Yeast Cancelled Radiography Diagnostic Testing: Clinical Impression(s) from Imaging Studies Head/Neck CTA 05/16/24 14:36 IMPRESSION: No acute intracranial pathology. Age-related changes. No hemodynamically significant stenosis. No aneurysm or dissection. Electronically Signed: Jayce Tee, DO at 16:26 EDT , Chest X-Ray 05/16/24 15:35 IMPRESSION: Left basilar atelectasis. Electronically Signed: Jaycebakari Tee DO at 16:04 EDT , Rhythm Strip Rhythm Strip: Sinus Rhythm Rate: 95 Ectopy: None EKG Initial EKG: Attestation: I personally reviewed and interpreted this EKG as follows: Interpretation: Sinus Rhythm, No Acute Injury Pattern and LAFB Prior EKG tracings: available for review Prior: Unchanged Stroke Documentation Questions Stroke Team Activated: No (neurologic symptoms resolved, NIH 0) Was Patient considered for Endovascular Intervention?: No-CTA negative, determined not to be an endovascular candidate Discharge Plan Dx/Rx/DC Orders Clinical Impression: TIA (transient ischemic attack), History of atrial fibrillation Disposition Disposition: Acute Care Hospital [facility]
[2024-05-16 15:14] LABS: Partial Thromboplast Time 36.6 Seconds (24.1-36.2)
[2024-05-16 15:26] LABS: Troponin-I HS 8 pg/mL (3.0-54.0)
--- NOTE | 2024-05-16 15:35 | RAD_ITS ---
INDICATION: Stroke EXAMINATION/TECHNIQUE: X-RAY - XR Chest 1 View COMPARISON: January 04, 2024 FINDINGS: LINES/DEVICES: None. LUNGS: No consolidation, edema or effusion. Stable left upper lobe granuloma. Left basilar atelectasis. No pneumothorax. MEDIASTINUM AND CARDIOVASCULAR STRUCTURES: Cardiac silhouette not enlarged. Central airways and mediastinal contour are unremarkable. BONES AND SOFT TISSUES: Degenerative vertebral changes and scoliosis. RAD/Chest 1 View (Portable) IMPRESSION: Left basilar atelectasis. Electronically Signed: Jayce Tee DO at 16:04 EDT ,
[2024-05-16 15:39] LABS: Bacteria 0 SEEN /hpf (None Seen); Mucous, Urine 0 SEEN /hpf (<or=2+); Red Blood Cells-Urine 0 SEEN /hpf (0-5); Squamous Epithelial Cells - UA 0 SEEN /hpf (5-10); White Blood Cells 0 SEEN /hpf (0-5)
[2024-05-16 15:48] LABS: Color, Urine Yellow (Yellow); Glucose, Dipstick Normal (Normal); Ketone-Dipstick Negative (Negative); Leukocyte Esterase-Dipstick Negative /ul (Negative); Nitrite-Dipstick Negative (Negative); Occult Blood-Urine Negative /ul (Negative); Protein-Dipstick Negative (Negative); Urine Bilirubin Dipstick Negative (Negative); Urine Clarity Clear (Clear); Urine Urobilinogen Normal (Normal)
[2024-05-16] MEDS: 0.9% Normal Saline (500mL Bag) 500 ML 999 ML IV (16:04)
--- NOTE | 2024-05-16 17:41 | MRI_ITS ---
STUDY: MRI BRAIN WITHOUT CONTRAST REASON FOR EXAM: Female, 88 years old. tia; right sided body sx TECHNIQUE: Standardized multiplanar fat and water weighted pulse sequences were obtained. History of RIGHT facial droop and RIGHT lower extremity numbness. COMPARISON: CT/CTA examination of 05/16/2024, MRI of 08/16/2021 HEMISPHERES, CEREBELLUM AND BRAINSTEM: 1. The cerebral parenchyma, ventricular system, subarachnoid spaces have normal configuration and density. There is a normal gyral pattern. There is normal fairchild/white differentiation. No midline shift.. 2. 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 No areas of fluid restriction or acute ischemia. No hemosiderin deposition or hemorrhage. 3. No intraparenchymal mass, hemorrhage, or acute territorial infarct. 4. The cerebellum, brainstem, basilar and suprasellar cisterns have normal appearance. No Chiari malformation. PITUITARY: Infundibulum and pituitary have normal configuration. Midline structures appear normal. CSF SPACES: Appropriate for age. No hydrocephalus. Basal cisterns are patent. VESSELS: 1. There are normal flow voids noted in the great vessels at the skull base ORBITS AND PARANASAL SINUSES: 1. Both globes, extraocular muscles, optic nerves and retrobulbar fat appear unremarkable. Postoperative changes of prior bilateral cataract surgery. 2. Paranasal sinuses are clear. BONY ELEMENTS: Bony elements of the cranial vault, facial skeleton and skull base have normal appearance. SCALP AND SOFT TISSUES: Normal appearance of the soft tissues of the scalp and the visualized face OTHER: There is susceptibility artifact in the RIGHT suboccipital triangle of uncertain etiology. MRI/Brain without Contrast IMPRESSION: 1. Stable exam. 2. 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 3. No intracranial mass, hemorrhage, or acute territorial infarct. 4. No radiographically significant sinus disease. Electronically Signed: Charles Toth MD at 20:02 EDT ,
--- NOTE | 2024-05-16 18:18 | PCM.HP.STD ---
HPI - General General Date of Admission: 05/16/24 HPI Narrative MICHAEL VALENZUELA, is a 88 F who presents with concern for right facial droop and stroke. This happened this morning and she is outside of any tPA window and on arrival to the ER her symptoms have completely resolved. She denies any upper extremity or lower extremity weakness, denies any facial numbness or tingling. Though she does express left-sided shooting pain on her face and into her scalp that she has been seeing her PCP for but it does not appear to be associate with any type of rash and she is not aware of any instigating factors for this. [facility] Medical History Anxiety and depression Wears partial dentures Wears glasses Anemia High cholesterol Back pain Injury of back Migraine headache TIA (transient ischemic attack) History of IBS History of diverticulitis Non-smoker Sleep apnea History of echocardiogram Cardiology follow-up encounter H/O Sjogren's disease Dysphagia GERD (gastroesophageal reflux disease) Constipation lap repair bladder injury Raynaud's disease Meningitis Lymphocytic colitis Low back pain Hyperlipidemia Arthritis Glossodynia Fibromyalgia Exanthematous disorder Crohns disease Cataract Behcet's disease Atrial fibrillation Diverticulitis Choroid melanoma of left eye Home Medications ?Medication ?Instructions ?Recorded ?Last Taken ?Type aspirin 81 mg tablet,delayed 81 mg PO DINNER heart health 03/29/16 10/31/21 History release atorvastatin 10 mg tablet 5 mg PO QODAY cholesterol 03/29/16 09/26/18 History calcium citrate 315 mg-vitamin D3 2 tab PO BID supplement 03/29/16 09/27/18 History 5 mcg (200 unit) tablet cyclosporine 0.05 % eye drops in a 1 drp EACH EYE BID eye 03/29/16 09/27/18 History dropperette (Restasis) hydroxychloroquine 200 mg tablet 200 mg PO DAILYCM arthritis 03/29/16 09/26/18 History melatonin 3 mg tablet 3 mg PO QHS sleep 03/29/16 09/26/18 History pilocarpine HCl 5 mg tablet 2.5 mg PO TID bp 03/29/16 09/27/18 History pramipexole 0.125 mg tablet 0.125 mg PO .1900, 2200 restless 03/29/16 09/26/18 History (Mirapex) legs fluticasone propionate 50 2 spry NASAL DAILY allergies 09/27/18 09/24/18 History mcg/actuation nasal spray,suspension magnesium oxide 400 mg PO QHS supplement 09/27/18 09/26/18 History multivitamin 1 tab PO DAILY vitamin 09/27/18 09/26/18 History venlafaxine 150 mg 75 mg PO DAILY anxiety 09/27/18 09/27/18 History capsule,extended release 24 hr vitamin B complex 1 tab PO DAILY vitamin 09/27/18 09/26/18 History white petrolatum-mineral oil 94 3.5 g OP DAILY dry eye 09/27/18 09/26/18 History %-3 % eye ointment (Systane Nighttime) pregabalin 25 mg capsule (Lyrica) 25 mg PO TID neuropathy 08/16/21 Unknown History zinc 50 mg tablet 50 mg PO DAILY supplement 10/31/21 Unknown History albuterol sulfate 90 mcg/actuation 2 puff inhalation Q4H PRN 02/03/23 Unknown Rx aerosol inhaler (Ventolin HFA) shortness of breath or wheezing #8.5 grams acetaminophen 500 mg tablet 1,000 mg (2 x 500 mg) PO Q8 #0 tabs 01/14/24 Unknown Rx calcium carbonate 500 mg (2.5 x 200 mg calcium (500 01/14/24 Unknown Rx mg)) PO Q4H PRN PRN Indigestion #0 tabs oxycodone 5 mg tablet 5 mg PO Q4H PRN PRN Pain Score 01/14/24 Unknown Rx 4-10 Or Pre Pt/Ot 7 days #42 tabs vit A 300 mcg-C 200 mg-E 27 1 tab PO DAILYCM #0 tabs 01/14/24 Unknown Rx mg-lutein 2 mg and minerals tablet (Healthy Eyes) clindamycin HCl 300 mg capsule 600 mg (2 x 300 mg) PO ONCE #2 caps 03/28/24 Unknown Rx pantoprazole 40 mg tablet,delayed 40 mg PO BID #180 TABLETS 04/01/24 Unknown Rx release docusate sodium 100 mg capsule 100 mg PO TID PRN 04/14/24 Unknown History (Colace) pilocarpine HCl 5 mg tablet 2.5 mg PO TID 04/14/24 Unknown History Allergy/AdvReac Type Severity Reaction Status Date / Time amoxicillin Allergy Rash Verified 05/16/24 13:56 difluprednate (From Durezol) Allergy Other Verified 05/16/24 13:56 methylprednisolone Allergy Rash Verified 05/16/24 13:56 Penicillins Allergy Unknown Verified 05/16/24 13:56 prednisolone Allergy Swelling Verified 05/16/24 13:56 sucralfate (From Carafate) Allergy restless Verified 05/16/24 13:56 legs diphenhydramine (From AdvReac Intermediate Other Verified 05/16/24 13:56 Benadryl) amitriptyline AdvReac sleepiness Verified 05/16/24 13:56 citalopram AdvReac Diarrhea Verified 05/16/24 13:56 codeine AdvReac Nausea Verified 05/16/24 13:56 dexamethasone AdvReac Other Verified 05/16/24 13:56 duloxetine HCl (From AdvReac Diarrhea Verified 05/16/24 13:56 Cymbalta) Iodinated Contrast Media AdvReac unknown Verified 05/16/24 13:56 (Iodinated Contrast- Oral and IV Dye) lamotrigine (From Lamictal) AdvReac DRUGGED Verified 05/16/24 13:56 FEELING metoclopramide HCl (From AdvReac INVOLUNTARY Verified 05/16/24 13:56 Reglan) BODY MOVEMENTS mirabegron (From Myrbetriq) AdvReac Other Verified 05/16/24 13:56 promethazine HCl (From AdvReac INVOLUNTARY Verified 05/16/24 13:56 Phenergan) BODY MOVEMENTS sertraline HCl (From Zoloft) AdvReac Diarrhea Verified 05/16/24 13:56 sulfamethoxazole (From AdvReac FELT Verified 05/16/24 13:56 Bactrim) WEIRD, HEAD NUMB, FELT DRUGGED, SHAKEY, NAUSEATED trimethoprim (From Bactrim) AdvReac FELT Verified 05/16/24 13:56 WEIRD, HEAD NUMB, FELT DRUGGED, SHAKEY, NAUSEATED Family History Mother Diabetes Breast cancer Arthritis Asthma auto immune disease Father Heart disease Hypertension Hyperlipidemia CVA (cerebral vascular accident) Arthritis Surgical History Hx of bilateral cataract extraction Hx of eye surgery H/O endoscopy H/O dilation and curettage H/O adenoidectomy H/O vaginal hysterectomy H/O colonoscopy History of tonsillectomy H/O cystoscopy History of cholecystectomy Hx of appendectomy Social History household members: none housing: house Smoking Status: Never smoker alcohol intake: never substance use type: does not use ROS Constitutional Constitutional: Denies chills, fatigue, fever(s) or malaise Eyes Eyes: Denies blurry vision ENT HEENT: Denies headache(s) or nasal discharge Cardiovascular Cardiovascular: Denies chest pain, dyspnea on exertion or syncope Respiratory/Chest Respiratory/Chest: Denies cough, shortness of breath at rest or shortness of breath with exertion Gastrointestinal Gastrointestinal: Denies constipation, diarrhea, nausea or vomiting Genitourinary Genitourinary: Denies dysuria Neurologic Neurologic: Reports other Details: Right facial droop ; Denies focal weakness, numbness or tremor(s) Psychiatric Psychiatric: Denies anxiety or depression Vital Signs Vital Signs Vital Signs: 05/16/24 13:56 05/16/24 14:03 05/16/24 14:55 Temperature 97.9 F Temperature Source Temporal Pulse Rate 95 91 Respiratory Rate 16 18 Blood Pressure 152/98 H 149/68 H Blood Pressure Mean 116 95 Pulse Ox 85 98 Oxygen Delivery Method Room Air Room Air Room Air 05/16/24 15:00 05/16/24 16:00 05/16/24 17:44 Temperature Temperature Source Pulse Rate 91 88 80 Respiratory Rate 16 16 19 H Blood Pressure 149/68 H 117/81 H 151/75 H Blood Pressure Mean 95 93 100 Pulse Ox 98 98 98 Oxygen Delivery Method Room Air Room Air Room Air 05/16/24 17:46 05/16/24 18:00 Temperature 98 F Temperature Source Pulse Rate 87 87 Respiratory Rate 18 Blood Pressure 129/78 H 109/96 H Blood Pressure Mean 95 100 Pulse Ox 99 Oxygen Delivery Method Weight Weight: 118 lb 9.739 oz Body Mass Index (BMI) 25.7 Physical Exam Narrative General: Alert, Oriented x3, Cooperative, No apparent distress HEENT: Atraumatic, PERRLA, EOMI, Normocephalic Oral: Moist Mucosa Neck: Supple, No JVD Lungs: Diminished, Normal air movement, No rhonchi, No wheeze, No rales Cardiovascular: Regular rate, Regular Rhythm, Normal S1, Normal S2, No murmurs Abdomen: Soft, Non Tender, Non-Distended, No Hepato-splenomegaly Extremities: No edema, Capillary Refill Less than 3 Seconds Skin: No rashes, No breakdown Musculoskeletal: No Tenderness to Palpation of Joints or Extremities Neurological: No focal neurological deficits, Motor Exam 5/5 strength throughout, Sensory exam intact to light touch and pain, NIH of 0 Psych/Mental Status: Normal Affect, Appropriate Results Lab / Micro Data 05/16/24 14:20 05/16/24 14:20 Labs: Laboratory Results - last 24 hr 05/16/24 14:20: WBC 9.9, RBC 4.74, Hgb 12.5, Hct 40.2, MCV 84.8, MCH 26.4 L, MCHC 31.1 L, RDW Std Deviation 45.7 H, RDW Coeff of Celine 14.9 H, Plt Count 271, MPV 10.0, Immature Gran % (Auto) 0.500, Neut % (Auto) 69.8, Lymph % (Auto) 18.1 L, George % (Auto) 8.1, Eos % (Auto) 3.2, Baso % (Auto) 0.3, Absolute Neuts (auto) 6.9, Absolute Lymphs (auto) 1.80, Nucleated RBC % 0, PT 14.3, INR 1.1, APTT 36.6 H, Sodium 139, Potassium 3.7, Chloride 103, Carbon Dioxide 27.0, Anion Gap 9, BUN 14, Creatinine 0.77, Est GFR (MDRD) Af Amer 91, Est GFR (MDRD) Non-Af 75, BUN/Creatinine Ratio 18.2, Glucose 152 H, Calcium 9.2, Troponin I High Sens 8 05/16/24 15:07: Urine Color Cancelled, Urine Clarity Cancelled, Urine pH Cancelled, Ur Specific [place] Cancelled, U Specif Grav (Refrac) Cancelled, Urine Protein Cancelled, Urine Glucose (UA) Cancelled, Urine Ketones Cancelled, Urine Occult Blood Cancelled, Urine Nitrite Cancelled, Urine Bilirubin Cancelled, Urine Urobilinogen Cancelled, Ur Leukocyte Esterase Cancelled, Urine RBC Cancelled, Urine WBC Cancelled, Ur Squamous Epith Cells Cancelled, Ur Transition Epith Cell Cancelled, Ur Renal Epithelial Cell Cancelled, Calcium Oxalate Crystal Cancelled, Uric Acid Crystals Cancelled, Triple Phos Crystals Cancelled, Other Crystals Cancelled, Amorphous Sediment Cancelled, Urine Bacteria Cancelled, Hyaline Casts Cancelled, Fine Granular Casts Cancelled, Coarse Granular Casts Cancelled, Waxy Casts Cancelled, RBC Casts Cancelled, WBC Casts Cancelled, Urine Mucus Cancelled, Urine Trichomonas Cancelled, Urine Yeast Cancelled 05/16/24 15:32: Urine Color Yellow, Urine Clarity Clear, Urine pH 6.0, Ur Specific [place] 1.010, Urine Protein Negative, Urine Glucose (UA) Normal, Urine Ketones Negative, Urine Occult Blood Negative, Urine Nitrite Negative, Urine Bilirubin Negative, Urine Urobilinogen Normal, Ur Leukocyte Esterase Negative, Urine RBC 0 SEEN, Urine WBC 0 SEEN, Ur Squamous Epith Cells 0 SEEN, Urine Bacteria 0 SEEN, Urine Mucus 0 SEEN Rhythm Strip Rhythm Strip: Sinus Rhythm Rate: 95 Ectopy: None Imaging Radiology Impression Head/Neck CTA 05/16/24 14:36 IMPRESSION: No acute intracranial pathology. Age-related changes. No hemodynamically significant stenosis. No aneurysm or dissection. Electronically Signed: Jayce Tee DO at 16:26 EDT , Chest X-Ray 05/16/24 15:35 IMPRESSION: Left basilar atelectasis. Electronically Signed: Jayce Tee DO at 16:04 EDT , Assessment & Plan Assessment/Plan (1) TIA (transient ischemic attack): PLAN: Plan 1. TIA/HLD/history of A-fib ? Obtain an MRI if negative no further workup is necessary ? Continue with her Lipitor at 5 mg once verified ? Continue with aspirin once verified ? CTA head and neck is normal ? Unclear if she has A-fib as she is not on any anticoagulation and I cannot find a note to indicate why she would not be. She does not appear to be in A-fib currently but will monitor on telemetry 2. Anxiety/depression ? Stable ? Continue Effexor when verified 3. GERD ? Stable ?continue with PPI when verified DVT: SCDs 76 minutes was spent on direct patient care, including documentation as well as chart review and collaboration with colleagues Charges/Coding Visit Charges Inpatient E&M: 52682 Init Hosp L3
[2024-05-17 02:00] VITALS: BP 138/75; PULSE 78; RESP 16; TEMP 36.6; O2SAT 95
[2024-05-17 05:48] VITALS: BP 130/64; PULSE 67; RESP 16; TEMP 36.1; O2SAT 93
[2024-05-17 06:14] LABS: Absolute Lymphocyte Count 1.46 X10^3/uL (0.83-4.51); Absolute Neutrophil Count 4.4 X10^3/uL (2.0-7.7); Basophil# 0.02 X10^3/uL; Basophil% 0.3 % (0-1); Eosinophil# 0.31 X10^3/uL; Eosinophils% 4.5 % (0-5); Hematocrit 39.7 % (37-47); Hemoglobin 12.3 g/dL (12.0-15.0); Lymphocyte # 1.46 X10^3/ul (0.83-4.51); Lymphocyte % 21.1 % (19-41); Mean Corpuscular Hgb 26.2 pg (27.0-32.0); Mean Corpuscular Volume 84.6 fL (81-99); Monocyte# 0.67 X10^3/uL; Monocyte% 9.7 % (0-10); NRBC Flagged by Analyzer 0 % (0-5); Neutrophil # 4.42 X10^3/uL (2.7-7.7); Neutrophil % 63.8 % (47-70); Platelet Count 275 K/mm3 (150-450); RBC Distribution Width SD 45.6 fl (35.1-43.9); Red Blood Count 4.69 M/mm3 (4.2-5.4); White Blood Count 6.9 K/mm3 (4.4-11.0)
[2024-05-17 06:41] LABS: Anion Gap 5 (5-15); BUN 12 mg/dL (7-18); BUN/Creat Ratio 19.5 RATIO (10-20); Chloride 106 mmol/L (98-107); Cholesterol 149 mg/dL (200); Creatinine, Serum 0.62 mg/dL (0.55-1.02); EST Glomerular Filtration Rate 97 mL/min (>60); Est Glom Filt Rate - Afr Amer 118 mL/min (>60); Estimated Creatinine Clearance 34.91 ml/min; Glucose 95 mg/dL (74-106); High Density Lipoprotein 71 mg/dL; Potassium 3.4 mmol/L (3.5-5.1); Sodium Level 140 mmol/L (136-145); Triglycerides 71 mg/dL; Very Low Density Lipoprotein 14 mg/dL (5-40)
[2024-05-17] MEDS: oxyCODONE 5 MG Tablet PO (08:22)
[2024-05-17] MEDS: Potassium Chloride Oral Tablet 20 MEQ 40 MEQ PO (08:22)
[2024-05-17 10:32] VITALS: BP 129/78; PULSE 92; RESP 14; TEMP 36.5; O2SAT 95
[2024-05-17] MEDS: Venlafaxine XR 75 MG Capsule PO (10:36)
[2024-05-17] MEDS: Pantoprazole Sodium 40 MG Tablet PO (10:36)
[2024-05-17] MEDS: Hydroxychloroquine 200 MG Tablet PO (10:36)
[2024-05-17] MEDS: Clopidogrel Bisulfate 75 MG Tablet PO (10:36)
[2024-05-17] MEDS: Aspirin E.C. 81 MG Tablet PO (10:36)
[2024-05-17] MEDS: Fluticasone 0.05% 1 SPRAY NASAL.SRY 2 SPRAY NASAL (10:40)
[2024-05-17] MEDS: CLARIFY ORDER NOTE (12:28)
--- NOTE | 2024-05-17 12:29 | NEURO.CONS ---
Assessment and Plan: Neuro Assessment/Plan MICHAEL VALENZUELA is a 88 F with a past medical history of HTN migraines, TIA, being evaluated by Teleneurology for TIA, she presented with transient right facial droop and headache. 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 she reports on going occipital sharp pain but this time she has a new onset right facial droop. she reports simillar episode on the past that resolved spontenously PFSH Medical History Anxiety and depression Wears partial dentures Wears glasses Anemia High cholesterol Back pain Injury of back Migraine headache TIA (transient ischemic attack) History of IBS History of diverticulitis Non-smoker Sleep apnea History of echocardiogram Cardiology follow-up encounter H/O Sjogren's disease Dysphagia GERD (gastroesophageal reflux disease) Constipation lap repair bladder injury Raynaud's disease Meningitis Lymphocytic colitis Low back pain Hyperlipidemia Arthritis Glossodynia Fibromyalgia Exanthematous disorder Crohns disease Cataract Behcet's disease Atrial fibrillation Diverticulitis Choroid melanoma of left eye Home Medications ?Medication ?Instructions ?Recorded ?Last Taken ?Type aspirin 81 mg tablet,delayed 81 mg PO DAILY heart health 03/29/16 10/31/21 History release atorvastatin 10 mg tablet 5 mg PO QODAY cholesterol 03/29/16 09/26/18 History calcium citrate 315 mg-vitamin D3 2 tab PO BID supplement 03/29/16 09/27/18 History 5 mcg (200 unit) tablet cyclosporine 0.05 % eye drops in a 1 drp EACH EYE BID eye 03/29/16 09/27/18 History dropperette (Restasis) hydroxychloroquine 200 mg tablet 200 mg PO DAILYCM arthritis 03/29/16 09/26/18 History melatonin 3 mg tablet 3 mg PO QHS sleep 03/29/16 09/26/18 History pilocarpine HCl 5 mg tablet 2.5 mg PO TID bp 03/29/16 09/27/18 History pramipexole 0.125 mg tablet 0.125 mg PO .[id number] restless 03/29/16 09/26/18 History (Mirapex) legs fluticasone propionate 50 2 spry NASAL DAILY allergies 09/27/18 09/24/18 History mcg/actuation nasal spray,suspension magnesium oxide 400 mg PO QHS supplement 09/27/18 09/26/18 History multivitamin 1 tab PO DAILY vitamin 09/27/18 09/26/18 History venlafaxine 150 mg 75 mg PO DAILY anxiety 09/27/18 09/27/18 History capsule,extended release 24 hr vitamin B complex 1 tab PO DAILY vitamin 09/27/18 09/26/18 History white petrolatum-mineral oil 94 3.5 g OP DAILY PRN dry eye 09/27/18 09/26/18 History %-3 % eye ointment (Systane Nighttime) pregabalin 25 mg capsule (Lyrica) 25 mg PO TID neuropathy 08/16/21 Unknown History zinc 50 mg tablet 50 mg PO DAILY supplement 10/31/21 Unknown History albuterol sulfate 90 mcg/actuation 2 puff inhalation Q4H PRN 02/03/23 Unknown Rx aerosol inhaler (Ventolin HFA) shortness of breath or wheezing #8.5 grams calcium carbonate 500 mg (2.5 x 200 mg calcium (500 01/14/24 Unknown Rx mg)) PO Q4H PRN PRN Indigestion #0 tabs oxycodone 5 mg tablet 5 mg PO Q4H PRN PRN Pain 7 days 01/14/24 Unknown Rx #42 tabs vit A 300 mcg-C 200 mg-E 27 1 tab PO DAILYCM #0 tabs 01/14/24 Unknown Rx mg-lutein 2 mg and minerals tablet (Healthy Eyes) docusate sodium 100 mg capsule 100 mg PO TID PRN constipation 04/14/24 Unknown History (Colace) pilocarpine HCl 5 mg tablet 2.5 mg PO TID 04/14/24 Unknown History acetaminophen 500 mg tablet 500 mg PO Q6H PRN pain 05/17/24 Unknown History clindamycin HCl 300 mg capsule 600 mg PO ONCE PRN prior to dentist 05/17/24 Unknown History clopidogrel 75 mg tablet 75 mg PO DAILY 05/17/24 Unknown History pantoprazole 40 mg tablet,delayed 40 mg PO DAILY gerd 05/17/24 Unknown History release Allergy/AdvReac Type Severity Reaction Status Date / Time amoxicillin Allergy Rash Verified 05/16/24 13:56 difluprednate (From Durezol) Allergy Other Verified 05/16/24 13:56 methylprednisolone Allergy Rash Verified 05/16/24 13:56 Penicillins Allergy Unknown Verified 05/16/24 13:56 prednisolone Allergy Swelling Verified 05/16/24 13:56 sucralfate (From Carafate) Allergy restless Verified 05/16/24 13:56 legs diphenhydramine (From AdvReac Intermediate Other Verified 05/16/24 13:56 Benadryl) amitriptyline AdvReac sleepiness Verified 05/16/24 13:56 citalopram AdvReac Diarrhea Verified 05/16/24 13:56 codeine AdvReac Nausea Verified 05/16/24 13:56 dexamethasone AdvReac Other Verified 05/16/24 13:56 duloxetine HCl (From AdvReac Diarrhea Verified 05/16/24 13:56 Cymbalta) Iodinated Contrast Media AdvReac unknown Verified 05/16/24 13:56 (Iodinated Contrast- Oral and IV Dye) lamotrigine (From Lamictal) AdvReac DRUGGED Verified 05/16/24 13:56 FEELING metoclopramide HCl (From AdvReac INVOLUNTARY Verified 05/16/24 13:56 Reglan) BODY MOVEMENTS mirabegron (From Myrbetriq) AdvReac Other Verified 05/16/24 13:56 promethazine HCl (From AdvReac INVOLUNTARY Verified 05/16/24 13:56 Phenergan) BODY MOVEMENTS sertraline HCl (From Zoloft) AdvReac Diarrhea Verified 05/16/24 13:56 sulfamethoxazole (From AdvReac FELT Verified 05/16/24 13:56 Bactrim) WEIRD, HEAD NUMB, FELT DRUGGED, SHAKEY, NAUSEATED trimethoprim (From Bactrim) AdvReac FELT Verified 05/16/24 13:56 WEIRD, HEAD NUMB, FELT DRUGGED, SHAKEY, NAUSEATED Family History Mother Diabetes Breast cancer Arthritis Asthma auto immune disease Father Heart disease Hypertension Hyperlipidemia CVA (cerebral vascular accident) Arthritis Surgical History Hx of bilateral cataract extraction Hx of eye surgery H/O endoscopy H/O dilation and curettage H/O adenoidectomy H/O vaginal hysterectomy H/O colonoscopy History of tonsillectomy H/O cystoscopy History of cholecystectomy Hx of appendectomy Social History household members: none housing: house Smoking Status: Never smoker alcohol intake: never substance use type: does not use Vital Signs Vital Signs Vital Signs: 05/16/24 13:56 05/16/24 14:03 05/16/24 14:55 Temperature 97.9 F Temperature Source Temporal Pulse Rate 95 91 Respiratory Rate 16 18 Respiratory Effort Respiratory Depth Respiratory Pattern Blood Pressure 152/98 H 149/68 H Blood Pressure Mean 116 95 Blood Pressure Source Blood Pressure Position Blood Pressure Location Pulse Ox 85 98 Oxygen Delivery Method Room Air Room Air Room Air Fraction of Inspired Oxygen (FIO2) 05/16/24 15:00 05/16/24 16:00 05/16/24 17:44 Temperature Temperature Source Pulse Rate 91 88 80 Respiratory Rate 16 16 19 H Respiratory Effort Respiratory Depth Respiratory Pattern Blood Pressure 149/68 H 117/81 H 151/75 H Blood Pressure Mean 95 93 100 Blood Pressure Source Blood Pressure Position Blood Pressure Location Pulse Ox 98 98 98 Oxygen Delivery Method Room Air Room Air Room Air Fraction of Inspired Oxygen (FIO2) 05/16/24 17:46 05/16/24 18:00 05/16/24 19:36 Temperature 98 F 98.0 F Temperature Source Oral Pulse Rate 87 87 80 Respiratory Rate 18 16 Respiratory Effort Respiratory Depth Respiratory Pattern Blood Pressure 129/78 H 109/96 H 170/81 H Blood Pressure Mean 95 100 110 Blood Pressure Source Monitor Blood Pressure Position Semi-Fowlers Blood Pressure Location Right Arm Pulse Ox 99 99 Oxygen Delivery Method Room Air Fraction of Inspired Oxygen (FIO2) 05/16/24 20:00 05/16/24 20:35 05/16/24 22:00 Temperature 98 F 98 F Temperature Source Oral Oral Pulse Rate 80 78 Respiratory Rate 16 16 Respiratory Effort Respiratory Depth Respiratory Pattern Blood Pressure 170/81 H 115/60 Blood Pressure Mean 110 78 Blood Pressure Source Monitor Monitor Blood Pressure Position Supine Semi-Fowlers Blood Pressure Location Right Arm Right Arm Pulse Ox 99 76 95 Oxygen Delivery Method Room Air Room Air Room Air Fraction of Inspired Oxygen (FIO2) 94 05/16/24 22:00 05/17/24 02:00 05/17/24 02:17 Temperature 98 F Temperature Source Oral Pulse Rate 78 Respiratory Rate 16 Respiratory Effort Normal Normal Respiratory Depth Normal Normal Respiratory Pattern Normal Normal Blood Pressure 138/75 H Blood Pressure Mean 96 Blood Pressure Source Monitor Blood Pressure Position Semi-Fowlers Blood Pressure Location Right Arm Pulse Ox 95 Oxygen Delivery Method Room Air Room Air Room Air Fraction of Inspired Oxygen (FIO2) 05/17/24 05:48 05/17/24 07:45 05/17/24 10:32 Temperature 97 F L 97.7 F L Temperature Source Oral Temporal Pulse Rate 67 92 Respiratory Rate 16 14 Respiratory Effort Normal Non-Labored Respiratory Depth Normal Respiratory Pattern Normal Blood Pressure 130/64 H 129/78 H Blood Pressure Mean 86 95 Blood Pressure Source Monitor Monitor Blood Pressure Position Semi-Fowlers Sitting Blood Pressure Location Right Arm Right Arm Pulse Ox 93 95 Oxygen Delivery Method Room Air Room Air Room Air Fraction of Inspired Oxygen (FIO2) Weight Weight: 47.809 kg Body Mass Index (BMI) 22.0 EEG Results Procedure Details EEG Procedure Details: MICHAEL VALENZUELA is a 88 year old F with a past medical history of , who presents for evaluation of Electroencephalogram on DATE at TIME NIHSS NIHSS Nursing Documentation NIHSS Nursing Documentation: NIHSS: Ischemic Stroke/TIA Start: 05/16/24 19:59 Text: For PCU Patients: NIH and Neuro Check every 4 Status: Active hours, PRN and with change in RN caregiver. Freq: [id number] Protocol: Activity Type Activity Date Activity User E-sign Co-sign Detail Recorded Client Recorded Date Recorded By Document 05/17/24 09:50 DS ff 05/17/24 10:31 DS 05/17/24 09:50 NIH Stroke Scale [NIHSS] A score of 0 is normal or asymptomatic . Total possible score is 42. Inpatient: RN or Physician to activate a stroke alert for onset of new stroke symptoms or with NIHSS increase >/= 3 points. Following change in neurological status, NIHSS will be performed per physician order or more frequently PRN. -1a. Level of Consciousness Alert; keenly responsive -1b. LOC Questions Answers BOTH questions correctly. -1c. LOC Commands Performs both tasks correctly . -2. Best Gaze Normal -3. Visual Partial hemianopia -4. Facial Palsy Normal symmetrical movements -5a. Left Arm No drift; arm holds 90 (or 45 ) degrees for full 10 seconds -5b. Right Arm No drift; arm holds 90 (or 45 ) degrees for full 10 seconds -6a. Left Leg No drift; leg holds 30-degree position for full 5 seconds -6b. Right Leg No drift; leg holds 30-degree position for full 5 seconds -7. Limb Ataxia Absent -8. Sensory Normal; no sensory loss -9. Best Language No aphasia; normal -10. Dysarthria Normal -11. Extinction and Inattention No abnormality -Total 1 Query Text:A score of 0 is normal or asymptomatic. Total possible score is 42 . ED: Notify Physician for NIHSS increase by > / = 3 points. Inpatient: RN or Physician to activate a stroke alert for NIHSS increase of > / = 3 points. Coma Scale [Assess] -Eye Opening Spontaneous -Motor Obeys Commands -Verbal Oriented [Total] -Coma Scale Total 15 Physical Exam Neuro Sensorium / Orientation: awake, alert, oriented to person and oriented to time Cranial Nerves: CN normal except as noted Coordination / Balance: [id number] test normal Speech: speech normal Sensory Exam: double simultaneous stimulation for sensation normal Motor Exam: strength 5/5 throughout Lab / Micro Data 05/17/24 05:50 05/17/24 05:50 Labs: Laboratory Results - last 24 hr 05/16/24 14:20: WBC 9.9, RBC 4.74, Hgb 12.5, Hct 40.2, MCV 84.8, MCH 26.4 L, MCHC 31.1 L, RDW Std Deviation 45.7 H, RDW Coeff of Celine 14.9 H, Plt Count 271, MPV 10.0, Immature Gran % (Auto) 0.500, Neut % (Auto) 69.8, Lymph % (Auto) 18.1 L, [place] % (Auto) 8.1, Eos % (Auto) 3.2, Baso % (Auto) 0.3, Absolute Neuts (auto) 6.9, Absolute Lymphs (auto) 1.80, Nucleated RBC % 0, PT 14.3, INR 1.1, APTT 36.6 H, Sodium 139, Potassium 3.7, Chloride 103, Carbon Dioxide 27.0, Anion Gap 9, BUN 14, Creatinine 0.77, Est GFR (MDRD) Af Amer 91, Est GFR (MDRD) Non-Af 75, BUN/Creatinine Ratio 18.2, Glucose 152 H, Calcium 9.2, Troponin I High Sens 8 05/16/24 15:07: Urine Color Cancelled, Urine Clarity Cancelled, Urine pH Cancelled, Ur Specific Yeoman Cancelled, U Specif Grav (Refrac) Cancelled, Urine Protein Cancelled, Urine Glucose (UA) Cancelled, Urine Ketones Cancelled, Urine Occult Blood Cancelled, Urine Nitrite Cancelled, Urine Bilirubin Cancelled, Urine Urobilinogen Cancelled, Ur Leukocyte Esterase Cancelled, Urine RBC Cancelled, Urine WBC Cancelled, Ur Squamous Epith Cells Cancelled, Ur Transition Epith Cell Cancelled, Ur Renal Epithelial Cell Cancelled, Calcium Oxalate Crystal Cancelled, Uric Acid Crystals Cancelled, Triple Phos Crystals Cancelled, Other Crystals Cancelled, Amorphous Sediment Cancelled, Urine Bacteria Cancelled, Hyaline Casts Cancelled, Fine Granular Casts Cancelled, Coarse Granular Casts Cancelled, Waxy Casts Cancelled, RBC Casts Cancelled, WBC Casts Cancelled, Urine Mucus Cancelled, Urine Trichomonas Cancelled, Urine Yeast Cancelled 05/16/24 15:32: Urine Color Yellow, Urine Clarity Clear, Urine pH 6.0, Ur Specific Yeoman 1.010, Urine Protein Negative, Urine Glucose (UA) Normal, Urine Ketones Negative, Urine Occult Blood Negative, Urine Nitrite Negative, Urine Bilirubin Negative, Urine Urobilinogen Normal, Ur Leukocyte Esterase Negative, Urine RBC 0 SEEN, Urine WBC 0 SEEN, Ur Squamous Epith Cells 0 SEEN, Urine Bacteria 0 SEEN, Urine Mucus 0 SEEN 05/17/24 05:50: WBC 6.9, RBC 4.69, Hgb 12.3, Hct 39.7, MCV 84.6, MCH 26.2 L, MCHC 31.0 L, RDW Std Deviation 45.6 H, RDW Coeff of Celine 15.0 H, Plt Count 275, MPV 10.0, Immature Gran % (Auto) 0.600, Neut % (Auto) 63.8, Lymph % (Auto) 21.1, Chaffee % (Auto) 9.7, Eos % (Auto) 4.5, Baso % (Auto) 0.3, Absolute Neuts (auto) 4.4, Absolute Lymphs (auto) 1.46, Nucleated RBC % 0, Sodium 140, Potassium 3.4 L, Chloride 106, Carbon Dioxide 29.0, Anion Gap 5, BUN 12, Creatinine 0.62, Estim Creat Clear Calc 34.91, Est GFR (MDRD) Af Amer 118, Est GFR (MDRD) Non-Af 97, BUN/Creatinine Ratio 19.5, Glucose 95, Calcium 9.0, Triglycerides 71, Cholesterol 149, LDL Cholesterol 64, VLDL Cholesterol 14, HDL Cholesterol 71 Rhythm Strip Rhythm Strip: Sinus Rhythm Rate: 95 Ectopy: None Imaging Radiology Impression Head/Neck CTA 05/16/24 14:36 IMPRESSION: No acute intracranial pathology. Age-related changes. No hemodynamically significant stenosis. No aneurysm or dissection. Electronically Signed: Jayce Tee DO at 16:26 EDT , Chest X-Ray 05/16/24 15:35 IMPRESSION: Left basilar atelectasis. Electronically Signed: Jayce Tee DO at 16:04 EDT , Brain MRI 05/16/24 17:41 IMPRESSION: 1. Stable exam. 2. 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 3. No intracranial mass, hemorrhage, or acute territorial infarct. 4. No radiographically significant sinus disease. Electronically Signed: Charles Toth MD at 20:02 EDT , Active Medications Active Medications Active Medications: Current Medications Generic Name Dose Route Start Last Admin Trade Name Freq PRN Reason Stop Dose Admin Acetaminophen 500 mg 05/17/24 07:41 Acetaminophen 500 Mg Tablet PO Q6H PRN pain 1-10 Aspirin 81 mg 05/17/24 08:00 05/17/24 10:36 Aspirin E.C. 81 Mg Tablet PO 81 mg DAILYCM [facility] Administration Atorvastatin Calcium 5 mg 05/17/24 10:00 Atorvastatin Calcium 10 Mg Tablet PO QODAY [facility] Clarify Med Order 0 each 05/17/24 09:00 05/17/24 12:28 Clarify Order NOTE 1 each CLARIFY JAQUI Administration Clopidogrel Bisulfate 75 mg 05/17/24 10:00 05/17/24 10:36 Clopidogrel Bisulfate 75 Mg Tablet PO 75 mg DAILY JAQUI Administration Fluticasone Propionate 2 spray 05/17/24 10:00 05/17/24 10:40 Fluticasone 0.05% 1 [place] Nasal.Sry NASAL 2 spray DAILY JAQUI Administration Hydralazine HCl 5 mg 05/16/24 19:59 Hydralazine 20 Mg/Ml Vial IV 05/17/24 19:59 Q30M PRN maintain BP parameters with HR <60 Hydroxychloroquine Sulfate 200 mg 05/17/24 08:00 05/17/24 10:36 [facility] Mg [facility] Labetalol HCl 10 - 20 mg 05/16/24 19:59 Labetalol (Prefilled) 20 Mg/4 Ml IV 05/17/24 19:59 Q10M PRN PRN maintain BP parameters with HR >/=60 Melatonin 3 mg 05/17/24 22:00 Melatonin 3 Mg Tablet PO QHS [facility] Oxycodone HCl 5 mg 05/17/24 07:41 05/17/24 08:22 Oxycodone 5 Mg Tablet PO 5 mg Q4H PRN PRN Administration Pain 1-10 Pantoprazole Sodium 40 mg 05/17/24 10:00 05/17/24 10:36 Pantoprazole Sodium 40 Mg Tablet PO 40 mg DAILY [facility] Administration Pramipexole Dihydrochloride 0.125 mg 05/17/24 12:00 Pramipexole Di-Hcl 0.125 Mg Tablet PO 1200,2000 [facility] Pregabalin 25 mg 05/17/24 14:00 Pregabalin 25 Mg Capsule PO TID JAQUI Sodium Chloride 10 - 40 ml 05/16/24 20:19 0.9% Saline Lock 10 Ml Syringe IV UD PRN SALINE FLUSH Venlafaxine HCl 75 mg 05/17/24 10:00 05/17/24 10:36 Venlafaxine Xr 75 Mg Capsule PO 75 mg DAILY JAQUI Administration
[2024-05-17] MEDS: Acetaminophen 500 MG Tablet PO (12:33)
--- NOTE | 2024-05-17 12:47 | CASEMGMT ---
SW completed a PHQ9 with patient as she may have had a TIA. Patient scored an 8 which indicates mild depression. Patient denied any need for counseling resources. Jen DUGAN
[2024-05-17 13:36] VITALS: O2SAT 96
--- NOTE | 2024-05-17 15:54 | PCM.DC ---
Discharge Instructions Diet Discharge Diet: No restrictions Activity Discharge Activity: Return to Normal Activity Follow Up Care Test Results: Test results from this visit will be discussed in further detail at your follow-up appointment, if applicable. Discharge Plan Admission Admit Date/Time: 05/16/24 18:18 Primary Reason for Your Visit: Headache and facial droop Attending Provider: Kelli Constantino Primary Care Provider: Leatha Kincaid Consulting Providers: Morales Hicks; Luis Garnica; Silvia Torres; Zohra Emery; Aurea Panchal; Cheryl Sen; Vinay King; Thania Villagomez; hSimon Razo; Colby Malloy; Papo Conley; Chikis Mercado; Juan Jose Lopez; Alyssa Moya; Patrick Nguyen; Kev Cruz; Rene Zuleta; Meg Baltazar; Charlie Vang; Meli Viveros; Sohail Christensen Instructions Patient Instructions: ED, Migraine (Classical) Additional Instructions / Restrictions: - Please follow-up with your neurologist on discharge -Please follow-up with your [facility] on discharge as previously scheduled -Please call your primary care provider's office upon discharge to schedule a hospital follow up within 1 week. -For any concerning signs or symptoms please call 911 or proceed to the nearest emergency department Discharge Orders/Prescriptions Prescriptions: Continued albuterol sulfate [Ventolin HFA] 90 mcg/actuation HFA aerosol inhaler 2 puff inhalation Q4H PRN (Reason: shortness of breath or wheezing) Qty: 8.5 6RF pilocarpine HCl 5 mg tablet 2.5 mg PO TID docusate sodium [Colace] 100 mg capsule 100 mg PO TID PRN (Reason: constipation) pilocarpine HCl 5 MG tablet 2.5 mg PO TID Patient Comments: eye drops atorvastatin 10 MG tablet 5 mg PO QODAY Patient Comments: cholesterol melatonin 3 MG tablet 3 mg PO QHS Patient Comments: sleep aid aspirin 81 MG tablet,delayed release (DR/EC) 81 mg PO DAILY Patient Comments: heart [facility] pramipexole [Mirapex] 0.125 MG tablet 0.125 mg PO .[id number] Patient Comments: PT TAKES 0.125 AT LUNCH AND OTHER 0.125 @ 2000 hydroxychloroquine 200 MG tablet 200 mg PO DAILYCM Patient Comments: arthritis cyclosporine [Restasis] 1 DROP dropperette 1 drp EACH EYE BID Patient Comments: tears calcium citrate-vitamin D3 1 EACH tablet 2 tab PO BID Patient Comments: calcium with vitamin D Rx Instructions: with breakfast and lunch fluticasone propionate 16 GM spray,suspension 2 spry NASAL DAILY Patient Comments: USE 2 SPRAYS IN EACH NOSTRIL ONCE DAILY. RINSE MOUTH AFTER USE. magnesium oxide 250 MG tablet 400 mg PO QHS multivitamin 1 EACH tablet 1 tab PO DAILY venlafaxine 150 MG capsule,extended release 24hr 75 mg PO DAILY Patient Comments: TAKE 1 CAPSULE BY MOUTH EVERY DAY vitamin B complex 1 EACH tablet 1 tab PO DAILY Systane Nighttime 3.5 GM ointment 3.5 g OP DAILY PRN (Reason: dry eye) pregabalin [Lyrica] 25 mg Capsule 25 mg PO TID Patient Comments: take at 6pm, 9pm and 12am zinc 50 mg Tablet 50 mg PO DAILY calcium carbonate 200 mg calcium (500 mg) Tablet,Chewable 500 mg PO Q4H PRN PRN (Reason: Indigestion) Qty: 0 0RF oxycodone 5 mg Tablet 5 mg PO Q4H PRN PRN (Reason: Pain ) 7 Days Qty: 42 0RF Healthy Eyes 300 mcg-200 mg-27 mg-2 mg Tablet 1 tab PO DAILYCM Qty: 0 0RF clindamycin HCl 300 mg capsule 600 mg PO ONCE PRN (Reason: prior to dentist) Rx Instructions: Take within 1 hour prior to procedure. clopidogrel 75 mg tablet 75 mg PO DAILY acetaminophen 500 mg Tablet 500 mg PO Q6H PRN (Reason: pain) pantoprazole 40 mg tablet,delayed release (DR/EC) 40 mg PO DAILY Referrals / Follow Up: Leatha Kincaid MD [Primary Care Provider] - Within 1 Week Disposition Disposition (needs filled in before D/C Order can be placed): Home, Self Care
--- NOTE | 2024-05-17 15:57 | PCM.DC.SUM ---
Providers Date of Admission: 05/16/24 Date of Discharge: 05/17/24 Primary Care Physician: Dr. Leatha Kincaid MD Consultations 05/17/24 07:53 Consult: Tele-Neurology Routine Consulting Provider: [facility] Reason for Consult: suspect TIA but pt already on asa+plavix, poss hx afib, ?med bowers, ?holter EMERGENT Consult: No MD Notified: Yes Date Notified: 05/17/24 Time Notified: 08:51 Method of Notification: [facility] Nursing Unit Staff Notify [facility] of Tele-Neurology Consult: Yes Reason For Visit: Headache Diagnosis Discharge Diagnosis (1) Headache: Status: Acute Code(s): R51.9 - Headache, unspecified Plan #Suspect complicated migraine #Hx TIA #Hx migraines #Hx anxiety #Hx gerd Medications at Discharge Home Medications aspirin 81 mg tablet,delayed release 81 mg PO DAILY heart health 03/29/16 atorvastatin 10 mg tablet 5 mg PO QODAY cholesterol 03/29/16 calcium citrate 315 mg-vitamin D3 5 mcg (200 unit) tablet 2 tab PO BID supplement 03/29/16 cyclosporine 0.05 % eye drops in a dropperette (Restasis) 1 drp EACH EYE BID eye 03/29/16 hydroxychloroquine 200 mg tablet 200 mg PO DAILYCM arthritis 03/29/16 melatonin 3 mg tablet 3 mg PO QHS sleep 03/29/16 pilocarpine HCl 5 mg tablet 2.5 mg PO TID bp 03/29/16 pramipexole 0.125 mg tablet (Mirapex) 0.125 mg PO .[id number] restless legs 03/29/16 fluticasone propionate 50 mcg/actuation nasal spray,suspension 2 spry NASAL DAILY allergies 09/27/18 magnesium oxide 400 mg PO QHS supplement 09/27/18 multivitamin 1 tab PO DAILY vitamin 09/27/18 venlafaxine 150 mg capsule,extended release 24 hr 75 mg PO DAILY anxiety 09/27/18 vitamin B complex 1 tab PO DAILY vitamin 09/27/18 white petrolatum-mineral oil 94 %-3 % eye ointment (Systane Nighttime) 3.5 g OP DAILY PRN dry eye 09/27/18 pregabalin 25 mg capsule (Lyrica) 25 mg PO TID neuropathy 08/16/21 zinc 50 mg tablet 50 mg PO DAILY supplement 10/31/21 albuterol sulfate 90 mcg/actuation aerosol inhaler (Ventolin HFA) 2 puff inhalation Q4H PRN shortness of breath or wheezing #8.5 grams 02/03/23 calcium carbonate 500 mg (2.5 x 200 mg calcium (500 mg)) PO Q4H PRN PRN Indigestion #0 tabs 01/14/24 oxycodone 5 mg tablet 5 mg PO Q4H PRN PRN Pain 7 days #42 tabs 01/14/24 vit A 300 mcg-C 200 mg-E 27 mg-lutein 2 mg and minerals tablet (Healthy Eyes) 1 tab PO DAILYCM #0 tabs 01/14/24 docusate sodium 100 mg capsule (Colace) 100 mg PO TID PRN constipation 04/14/24 pilocarpine HCl 5 mg tablet 2.5 mg PO TID 04/14/24 acetaminophen 500 mg tablet 500 mg PO Q6H PRN pain 05/17/24 clindamycin HCl 300 mg capsule 600 mg PO ONCE PRN prior to dentist 05/17/24 clopidogrel 75 mg tablet 75 mg PO DAILY 05/17/24 pantoprazole 40 mg tablet,delayed release 40 mg PO DAILY gerd 05/17/24 Hospital Course Procedures - (MRI) Summary of Care Provided Minutes Spent on Discharge: 25 Hospital Course: Per HPI: MICHAEL VALENZUELA, is a 88 F who presents with concern for right facial droop and stroke. This happened this morning and she is outside of any tPA window and on arrival to the ER her symptoms have completely resolved. She denies any upper extremity or lower extremity weakness, denies any facial numbness or tingling. Though she does express left-sided shooting pain on her face and into her scalp that she has been seeing her PCP for but it does not appear to be associate with any type of rash and she is not aware of any instigating factors for this. INTERVAL HISTORY: Patient's symptoms completely resolved and MRI with no acute process. Evaluated by neurology who was unsure TIA versus complicated migraine and recommended to continue aspirin and Plavix and to be evaluated for A-fib and follow-up with neurology regarding headache management. Patient evaluated and she reports her main complaint is the left-sided headache that she has had since before April 28 that radiates through the whole hemisphere, has not had any further complaints of facial droop or neuro signs or symptoms. Endorses that she already had an event monitor through her heart doctor which she is scheduled to follow-up for next week and did have a TTE previously with a negative bubble study so this was not reordered. Ultimately patient has continued headache but no new or acute complaints and does note that this is a chronic problem and she already follows with neurology for restless legs and is agreeable to follow-up with her neurologist Dr. Portillo to discuss her headaches and this hospitalization. 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 Physical Exam Narrative General: Alert, oriented, no apparent distress HEENT: Atraumatic, normocephalic Eyes: Anicteric, normal conjunctiva, extraocular movements grossly intact Neck: Supple Respiratory: Clear to auscultation bilaterally, normal respiratory effort Cardiovascular: Regular rate and rhythm GI: Soft, nontender, nondistended Extremities: No edema Musculoskeletal: Moving all extremities Neuro: No overt focal neurological deficits Skin: No rashes appreciated Psych: Cooperative Weight / BMI Weight Weight: 47.809 kg Body Mass Index (BMI) 22.0 ABG / Lab / Microbiology Data 05/17/24 05:50 05/17/24 05:50 Laboratory: Laboratory Results - last 24 hr 05/16/24 15:32: Urine Color Yellow, Urine Clarity Clear, Urine pH 6.0, Ur Specific [place] 1.010, Urine Protein Negative, Urine Glucose (UA) Normal, Urine Ketones Negative, Urine Occult Blood Negative, Urine Nitrite Negative, Urine Bilirubin Negative, Urine Urobilinogen Normal, Ur Leukocyte Esterase Negative, Urine RBC 0 SEEN, Urine WBC 0 SEEN, Ur Squamous Epith Cells 0 SEEN, Urine Bacteria 0 SEEN, Urine Mucus 0 SEEN 05/17/24 05:50: WBC 6.9, RBC 4.69, Hgb 12.3, Hct 39.7, MCV 84.6, MCH 26.2 L, MCHC 31.0 L, RDW Std Deviation 45.6 H, RDW Coeff of Celine 15.0 H, Plt Count 275, MPV 10.0, Immature Gran % (Auto) 0.600, Neut % (Auto) 63.8, Lymph % (Auto) 21.1, Antelope % (Auto) 9.7, Eos % (Auto) 4.5, Baso % (Auto) 0.3, Absolute Neuts (auto) 4.4, Absolute Lymphs (auto) 1.46, Nucleated RBC % 0, Sodium 140, Potassium 3.4 L, Chloride 106, Carbon Dioxide 29.0, Anion Gap 5, BUN 12, Creatinine 0.62, Estim Creat Clear Calc 34.91, Est GFR (MDRD) Af Amer 118, Est GFR (MDRD) Non-Af 97, BUN/Creatinine Ratio 19.5, Glucose 95, Calcium 9.0, Triglycerides 71, Cholesterol 149, LDL Cholesterol 64, VLDL Cholesterol 14, HDL Cholesterol 71 Radiography Diagnostic Testing: Radiology Impression Head/Neck CTA 05/16/24 14:36 IMPRESSION: No acute intracranial pathology. Age-related changes. No hemodynamically significant stenosis. No aneurysm or dissection. Electronically Signed: Jayce Tee DO at 16:26 EDT , Chest X-Ray 05/16/24 15:35 IMPRESSION: Left basilar atelectasis. Electronically Signed: Jayce Tee DO at 16:04 EDT , Brain MRI 05/16/24 17:41 IMPRESSION: 1. Stable exam. 2. 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 3. No intracranial mass, hemorrhage, or acute territorial infarct. 4. No radiographically significant sinus disease. Electronically Signed: Charles Toth MD at 20:02 EDT , D/C Instructions Discharge Diet: No restrictions Meaningful Use Info Meaningful Use Meaningful Use Diagnoses (Choose all that apply): None applicable Ischemic Stroke Statin Dosing Therapy Reference: STATIN DOSE THERAPY REFERENCE: * Patients > 75 years receive moderate or high dose statin therapy. * Patients 75 years or YOUNGER should receive HIGH intensity statin dose unless contraindicated. You will be required to document reason for non-treatment if statin daily dose does not meet guidelines. HIGH DOSE STATIN THERAPY DAILY Atorvastatin > than or = to 40 mg Rosuvastatin > than or = to 20 mg Amlodipine + Atorvastatin > than or = to 2.5/40 mg Ezetimibe + Simvastatin 10/80 mg Simvastatin 80mg Discharge Plan Admission Admit Date/Time: 05/16/24 18:18 Primary Reason for Your Visit: Headache and facial droop Attending Provider: Kelli Constantino Primary Care Provider: Leatha Kincaid Consulting Providers: Morales Hicks; Luis Garnica; Silvia Torres; Zohra Emery; Aurea Panchal; Cheryl Sen; Vinay King; Thania Villagomez; Shimon Razo; Colby Malloy; Papo Conley; Chikis Mercado; Juan Jose Lopez; Alyssa Moya; Patrick Nguyen; Kev Cruz; Rene Zuleta; Meg Baltazar; Charlie Vang; Meli Viveros; Sohail Christensen Instructions Patient Instructions: ED, Migraine (Classical) Additional Instructions / Restrictions: - Please follow-up with your neurologist on discharge -Please follow-up with your surveyor instrument assistant on discharge as previously scheduled -Please call your primary care provider's office upon discharge to schedule a hospital follow up within 1 week. -For any concerning signs or symptoms please call 911 or proceed to the nearest emergency department Discharge Orders/Prescriptions Prescriptions: Continued albuterol sulfate [Ventolin HFA] 90 mcg/actuation HFA aerosol inhaler 2 puff inhalation Q4H PRN (Reason: shortness of breath or wheezing) Qty: 8.5 6RF pilocarpine HCl 5 mg tablet 2.5 mg PO TID docusate sodium [Colace] 100 mg capsule 100 mg PO TID PRN (Reason: constipation) pilocarpine HCl 5 MG tablet 2.5 mg PO TID Patient Comments: eye drops atorvastatin 10 MG tablet 5 mg PO QODAY Patient Comments: cholesterol melatonin 3 MG tablet 3 mg PO QHS Patient Comments: sleep aid aspirin 81 MG tablet,delayed release (DR/EC) 81 mg PO DAILY Patient Comments: heart [email or web address] pramipexole [Mirapex] 0.125 MG tablet 0.125 mg PO .[id number] Patient Comments: PT TAKES 0.125 AT LUNCH AND OTHER 0.125 @ 2000 hydroxychloroquine 200 MG tablet 200 mg PO DAILYCM Patient Comments: arthritis cyclosporine [Restasis] 1 DROP dropperette 1 drp EACH EYE BID Patient Comments: tears calcium citrate-vitamin D3 1 EACH tablet 2 tab PO BID Patient Comments: calcium with vitamin D Rx Instructions: with breakfast and lunch fluticasone propionate 16 GM spray,suspension 2 spry NASAL DAILY Patient Comments: USE 2 SPRAYS IN EACH NOSTRIL ONCE DAILY. RINSE MOUTH AFTER USE. magnesium oxide 250 MG tablet 400 mg PO QHS multivitamin 1 EACH tablet 1 tab PO DAILY venlafaxine 150 MG capsule,extended release 24hr 75 mg PO DAILY Patient Comments: TAKE 1 CAPSULE BY MOUTH EVERY DAY vitamin B complex 1 EACH tablet 1 tab PO DAILY Systane Nighttime 3.5 GM ointment 3.5 g OP DAILY PRN (Reason: dry eye) pregabalin [Lyrica] 25 mg Capsule 25 mg PO TID Patient Comments: take at 6pm, 9pm and 12am zinc 50 mg Tablet 50 mg PO DAILY calcium carbonate 200 mg calcium (500 mg) Tablet,Chewable 500 mg PO Q4H PRN PRN (Reason: Indigestion) Qty: 0 0RF oxycodone 5 mg Tablet 5 mg PO Q4H PRN PRN (Reason: Pain ) 7 Days Qty: 42 0RF Healthy Eyes 300 mcg-200 mg-27 mg-2 mg Tablet 1 tab PO DAILYCM Qty: 0 0RF clindamycin HCl 300 mg capsule 600 mg PO ONCE PRN (Reason: prior to dentist) Rx Instructions: Take within 1 hour prior to procedure. clopidogrel 75 mg tablet 75 mg PO DAILY acetaminophen 500 mg Tablet 500 mg PO Q6H PRN (Reason: pain) pantoprazole 40 mg tablet,delayed release (DR/EC) 40 mg PO DAILY Referrals / Follow Up: Leatha Kincaid MD [Primary Care Provider] - Within 1 Week Disposition Disposition (needs filled in before D/C Order can be placed): Home, Self Care Charges/Coding Visit Charges Inpatient E&M: 77407 Disch Hosp
[2024-05-17 16:00] VITALS: BMI 22.0
--- NOTE | 2024-05-17 16:05 | CASEMGMT ---
Patient has order for discharge. RN CM in to discuss needs at discharge. No therapy recommended at discharge. Patient denies needs or help at discharge. Patient had no further questions or concerns.
== END 2024-05-17 16:36 | disposition home or self-care (01) ==
LOC: ED 17:27 → PCU 05-17 02:06
PROVIDERS: Admitting Provider Family Medicine; Emergency Provider Emergency Medicine; PCP Internal Medicine; Visit Provider Internal Medicine
DX: R29.810 Facial weakness (principal); I48.91 Unspecified atrial fibrillation; C44.721 Squamous cell carcinoma of skin of unspecified lower limb, including hip; M79.7 Fibromyalgia; E78.00 Pure hypercholesterolemia, unspecified; K21.9 Gastro-esophageal reflux disease without esophagitis; Z79.899 Other long term (current) drug therapy; Z79.82 Long term (current) use of aspirin; F41.9 Anxiety disorder, unspecified; F32.A Depression, unspecified; G43.909 Migraine, unspecified, not intractable, without status migrainosus
CPT/HCPCS: 36415; 70496; 70498; 70551; 71045; 80048; 80061; 81001; 84484; 85025; 85610; 85730; 93005; 94762; 96360; 96361; 97161; 97802; 99221; 99285; J7040; Q9967; G0378